=== PATIENT | female | born 2000 | race Caucasian/White ===

== ENCOUNTER 2022-07-06 12:32 | Emergency (ER) | payer OTHER, SELFPAY ==
[2022-07-06 12:50] VITALS: PULSE 95; RESP 18; O2SAT 97; BMI 23.5
--- NOTE | 2022-07-06 14:16 | EXP.UTC ---
Discharge Plan Disposition Patient Disposition: Home, Self-Care Condition: Good Prescriptions Prescriptions: New azithromycin [Zithromax] 250 mg tablet 250 mg PO UD DOSE PK Qty: 6 0RF Rx Instructions: Take two (2) tablets today, then one (1) tablet days #2 thru #5 Referrals Follow up/Referrals: Provider,Referral, MD [Primary Care Provider] - See instructions Activity Restrictions/Add. Instructions Additional Instructions/Restrictions: Drink plenty of fluids. Take tylenol or ibuprofen for pain or fever. Take the medications as directed. Follow up with your regular doctor. GO TO THE ER FOR ANY WORSENING SYMPTOMS Stop the amoxicillin that you are currently taking and start the azithromycin. Azithromycin is considered safe for breast feeding. Clinical Impressions Clinical Impression: Sinusitis Instructions Patient Instructions: Sinusitis, DI for Sinusitis Discharge ED Provider: Jose Martin Navarro [facility] General Stated complaint: Sinus pressure, no improvement w/ antibiotic Mode of Arrival: Ambulatory Limitations: No Limitations Time Seen by Provider: 07/06/22 14:16 Description of Symptoms (Recalled from Triage Doc. by RN): c/o sinus pressure and HOUSE History of Present Illness Provider Complaint: She states that for the past 2 days she has had sore throat, chills, body aches and low grade fever. Related Data Previous Rx's Medication Instructions Recorded azithromycin 250 mg tablet 250 mg PO UD DOSE PK #6 tabs 07/06/22 (Zithromax) Allergies Allergy/AdvReac Type Severity Reaction Status Date / Time No Known Allergies Allergy Verified 07/06/22 14:44 [facility] Social History Smoking Status: Never smoker alcohol intake: never current occupational status: employed Travel in the last 8 weeks: None ROS Obtained: Yes All systems reviewed & no additional complaints except as documented Constitutional Constitutional: Reports chills and Reports fever(s) Eyes Eyes: Denies eye discharge ENT Ears, Nose, Mouth, and Throat: Reports as per HPI Cardiovascular Cardiovascular: Denies chest pain Respiratory Respiratory: Denies chest congestion and Reports cough Gastrointestinal Gastrointestingal: Reports nausea; Denies abdominal pain, constipation, cramping, diarrhea or vomiting Musculoskeletal Musculoskeletal: Denies arthralgias Integumentary/Breasts Skin/Breast: Denies rash Neurologic Neurologic: Denies paresthesias Physical Exam General General appearance: alert and in no apparent distress Head Head exam: atraumatic, normocephalic and normal inspection Eye Eye exam: Present normal appearance, PERRL and EOMI ENT ENT exam: Present normal exam, normal oropharynx, mucous membranes moist, TM's normal bilaterally and normal external ear exam Neck Neck exam: Present normal inspection, full ROM and trachea midline; Absent meningismus or lymphadenopathy Chest Chest inspection: Present normal inspection and symmetric chest wall rise; Absent tenderness Respiratory Respiratory exam: Present normal lung sounds bilaterally; Absent respiratory distress Cardiovascular Cardiovascular exam: Present regular rate and normal rhythm; Absent JVD Abdominal Exam Abdominal exam: Present soft and normal bowel sounds; Absent distention, tenderness or guarding Extremities Exam Extremities exam: Present normal inspection, full ROM and normal capillary refill; Absent calf tenderness Back Exam Back exam: Present normal inspection; Absent tenderness Neurological Exam Neurological exam: Present alert and oriented X3 Psychiatric Psychiatric exam: Present normal affect and normal mood Skin Skin exam: Present warm, dry, intact and normal color Lymphatic Lymphatic Findings: no adenopathy Medical Decision Making Medical Records Medical records reviewed: No I reviewed the patient's medical records. Ubaldo Inquiry Pt receiving controlled substance:
[2022-07-06 14:30] LABS: UTC Influenza A Antigen Negative (Negative); UTC Influenza B Antigen Negative (Negative); UTC Strep Screen (Rapid) Negative (Negative)
[2022-07-06 14:42] VITALS: BP 135/78; PULSE 87; RESP 18; TEMP 37.3; O2SAT 99; BMI 23.5
[2022-07-06 15:12] VITALS: BP 135/78; PULSE 87; RESP 18; TEMP 37.3
== END 2022-07-06 15:12 | disposition home or self-care (01) ==
PROVIDERS: Emergency Provider Nurse Practitioner Family
DX: J02.9 Acute pharyngitis, unspecified (principal); R50.9 Fever, unspecified; R11.0 Nausea; R05.9 Cough, unspecified; R51.9 Headache, unspecified; M79.10 Myalgia, unspecified site
CPT/HCPCS: 87804; 87880; 99213; G0463

== ENCOUNTER 2022-07-18 10:09 | Emergency (ER) | payer OTHER, SELFPAY ==
[2022-07-18 11:20] VITALS: BP 112/63; PULSE 62; RESP 19; TEMP 36.8; O2SAT 98; BMI 23.5
[2022-07-18 11:38] LABS: UTC Strep Screen (Rapid) Negative (Negative)
--- NOTE | 2022-07-18 11:41 | EXP.UTC ---
Discharge Plan Disposition Patient Disposition: Home, Self-Care Condition: Good Prescriptions Prescriptions: No Action azithromycin [Zithromax] 250 mg tablet 250 mg PO UD DOSE PK Qty: 6 0RF Rx Instructions: Take two (2) tablets today, then one (1) tablet days #2 thru #5 Referrals Follow up/Referrals: Provider,Referral, MD [Primary Care Provider] - See instructions Activity Restrictions/Add. Instructions Additional Instructions/Restrictions: covid swab was sent to lab, call tomorrow for results. self isolate until test results are known to be negative No sign of a bacterial infection. Likely viral. Viruses can take 7-14 days to run their course. Nasal saline and bulb syringe or nose Hattie to remove nasal drainage to help with nasal congestion. Hard to eat, drink, sleep with nasal congestion so important to keep this cleaned out. Monitor temp. Tylenol or Motrin as needed for pain or fever Encourage fluids, water, Gatorade, Powerade, Pedialyte if infant/toddler/child Warm salt water gargles Warm fluids Sore throat lozenges Sleep elevated Humidifier/vaporizer Follow-up immediately for new or worsening symptoms or no noticeable improvement over the next 48-72 hours. Clinical Impressions Clinical Impression: Upper respiratory infection, viral Instructions Patient Instructions: DI for Viral Upper Respiratory Infection -- Adult [facility]charge ED [facility] [facility] [place] General Stated complaint: sore throat, ear pain Time Seen by Provider: 07/18/22 11:41 HEENT Symptoms (Recalled from RN notes): Yes Resp Symptoms (Recalled from RN notes): No History of Present Illness Provider Complaint: 22 yr old female presents for sore throat and ear pain for 2 days Related Data Previous Rx's Medication Instructions Recorded azithromycin 250 mg tablet 250 mg PO UD DOSE PK #6 tabs 07/06/22 (Zithromax) Allergies Allergy/AdvReac Type Severity Reaction Status Date / Time No Known Allergies Allergy Verified 07/06/22 14:44 [facility] Disclaimer: The information contained in this section may have been updated after the patient was seen, as this information can be updated by other users. Social History , [employer]) Smoking Status: Never smoker alcohol intake: never current occupational status: employed Travel in the last 8 weeks: None ROS Obtained: Yes All systems reviewed & no additional complaints except as documented Constitutional Constitutional: Reports system reviewed and no additional complaints, except as documented and Reports as per HPI Eyes Eyes: Reports system reviewed and no additional complaints, except as documented and Reports as per HPI ENT Ears, Nose, Mouth, and Throat: Reports system reviewed and no additional complaints, except as documented, Reports as per HPI, Reports otalgia and Reports sore throat Cardiovascular Cardiovascular: Reports system reviewed and no additional complaints, except as documented Respiratory Respiratory: Reports system reviewed and no additional complaints, except as documented Gastrointestinal Gastrointestingal: Reports system reviewed and no additional complaints, except as documented Musculoskeletal Musculoskeletal: Reports system reviewed and no additional complaints, except as documented Integumentary/Breasts Skin/Breast: Reports system reviewed and no additional complaints, except as documented Neurologic Neurologic: Reports system reviewed and no additional complaints, except as documented Endocrine Endocrine: Reports system reviewed and no additional complaints, except as documented Allergic/Immunologic Allergic/Immunologic: Reports system reviewed and no additional complaints, except as documented Physical Exam General General appearance: alert and in no apparent distress Head Head exam: atraumatic, normocephalic and normal inspection Eye Eye exam: Present normal appearance and PERR
[2022-07-18 11:46] VITALS: BP 112/63; PULSE 62; RESP 19; TEMP 36.8; O2SAT 98
== END 2022-07-18 11:47 | disposition home or self-care (01) ==
PROVIDERS: Emergency Provider Nurse Practitioner Family
DX: J06.9 Acute upper respiratory infection, unspecified (principal)
CPT/HCPCS: 87880; 99212; G0463

== ENCOUNTER 2022-07-20 08:27 | Emergency (ER) | payer OTHER, SELFPAY ==
[2022-07-20 09:38] VITALS: BP 110/68; PULSE 84; RESP 16; TEMP 36.7; O2SAT 99; BMI 23.5
--- NOTE | 2022-07-20 10:00 | EXP.UTC ---
Discharge Plan Disposition Patient Disposition: Home, Self-Care Condition: Good Prescriptions Prescriptions: New cephalexin [cephalexin] 500 mg tablet 500 mg PO BID 7 Days Qty: 14 0RF No Action azithromycin [Zithromax] 250 mg tablet 250 mg PO UD DOSE PK Qty: 6 0RF Rx Instructions: Take two (2) tablets today, then one (1) tablet days #2 thru #5 Referrals Follow up/Referrals: Provider,Referral, MD [Primary Care Provider] - See instructions Activity Restrictions/Add. Instructions Additional Instructions/Restrictions: Start antibiotic as soon as possible and be sure to take as ordered for full length of time even though he should start feeling better in 24-48 hours. Tylenol or Motrin as needed for pain or fever Encourage fluids, water, Gatorade, Powerade, Pedialyte if /toddler/child Warm compresses often helps when placed over ear Return immediately for new or worsening symptoms no noticeable improvement in 48-72 hours and in 10-14 days to ensure the ears are return to baseline. Follow-up with primary care Clinical Impressions Clinical Impression: Sinusitis, Otitis media Instructions Patient Instructions: DI for Sinusitis, Middle Ear Infection Discharge ED Provider: Cielo ([facility])[place]resa [facility] [place] HPI General Stated complaint: left ear pain/sore throat Mode of Arrival: Ambulatory Source of Information: Patient Limitations: No Limitations Time Seen by Provider: 07/20/22 10:03 Description of Symptoms (Recalled from Triage Doc. by RN): pt comes in with c/o left ear pain, ongoing since last night. HEENT Symptoms (Recalled from RN notes): Yes Resp Symptoms (Recalled from RN notes): Yes Skin Symptoms (Recalled from RN notes): No MS Symptoms (Recalled from RN notes): No Functional Status (Recalled from RN notes): n/a History of Present Illness Provider Complaint: 22 yr old female c/o left ear pain, ongoing since last night. pt states she also having green sputum, sinus pressure and pain for a few days Related Data Previous Rx's Medication Instructions Recorded azithromycin 250 mg tablet 250 mg PO UD DOSE PK #6 tabs 07/06/22 (Zithromax) cephalexin 500 mg tablet 500 mg PO BID 7 days #14 tabs 07/20/22 Allergies Allergy/AdvReac Type Severity Reaction Status Date / Time No Known Allergies Allergy Verified 07/06/22 14:44 Worker's Comp Is this a Worker's Comp case?: No [facility] Disclaimer: The information contained in this section may have been updated after the patient was seen, as this information can be updated by other users. Social History , [employer]) Smoking Status: Never smoker alcohol intake: never current occupational status: employed Travel in the last 8 weeks: None ROS Obtained: Yes All systems reviewed & no additional complaints except as documented Constitutional Constitutional: Reports system reviewed and no additional complaints, except as documented and Reports as per HPI Eyes Eyes: Reports system reviewed and no additional complaints, except as documented and Reports as per HPI ENT Ears, Nose, Mouth, and Throat: Reports system reviewed and no additional complaints, except as documented, Reports as per HPI, Reports otalgia, Reports nasal congestion, Reports nasal discharge, Reports sinus pain and Reports sinus pressure Cardiovascular Cardiovascular: Reports system reviewed and no additional complaints, except as documented Respiratory Respiratory: Reports system reviewed and no additional complaints, except as documented Gastrointestinal Gastrointestingal: Reports system reviewed and no additional complaints, except as documented Musculoskeletal Musculoskeletal: Reports system reviewed and no additional complaints, except as documented Integumentary/Breasts Skin/Breast: Reports system reviewed and no additional complaints, except as documented Endocrine Endocrine: Reports system reviewed and no additional complaints,
[2022-07-20 10:13] VITALS: BP 110/68; PULSE 84; RESP 16; TEMP 36.7
== END 2022-07-20 10:14 | disposition home or self-care (01) ==
PROVIDERS: Emergency Provider Nurse Practitioner Family
DX: J32.9 Chronic sinusitis, unspecified (principal); H66.93 Otitis media, unspecified, bilateral
CPT/HCPCS: 99212; G0463

== ENCOUNTER 2022-11-21 19:59 | Emergency (ER) | payer OTHER, SELFPAY ==
[2022-11-21 20:45] VITALS: BP 119/77; PULSE 79; RESP 17; TEMP 36.8; O2SAT 100; BMI 22.7
[2022-11-21 21:14] LABS: Microscopic, Urine URINE MICROSCOPIC (MICROSCOPIC)
[2022-11-21 21:17] LABS: Appearance,Urine CLEAR (Clear); Bilirubin,Urine Negative (Negative); Blood, Urine Negative (Negative); Color,Urine YELLOW (Yellow); Glucose,Urine (UA) Negative (Negative); Ketones,Urine Negative (Negative); Leukocyte Esterase,Urine Negative (Negative); Nitrate,Urine Negative (Negative); Protein,Urine Negative (Negative); Specific Gravity, Urine 1.015 (1.005-1.030); Urobilinogen,Urine 0.2 EU/dl (0.2)
[2022-11-21 21:21] LABS: Urine Pregnancy, HCG Qual. Negative (Negative)
--- NOTE | 2022-11-21 21:21 | CT_ITS ---
PROCEDURE INFORMATION: Exam: CT Abdomen And Pelvis With Contrast Exam date and time: 11/21/2022 9:46 PM Age: 22 years old Clinical indication: Abdominal pain; Additional info: Abd pain , midline TECHNIQUE: Imaging protocol: Computed tomography of the abdomen and pelvis with contrast. Total images: 264 Radiation optimization: All CT scans at this facility use at least one of these dose optimization techniques: automated exposure control; mA and/or kV adjustment per patient size (includes targeted exams where dose is matched to clinical indication); or iterative reconstruction. Contrast material: ISOVUE; Contrast volume: 75 ml; Contrast route: IV; REPORTING DATA: Count of CT and Cardiac NM exams in prior 12 months: This patient has received 0 known CTs and 0 known cardiac nuclear medicine studies in the 12 months prior to the current study. COMPARISON: No relevant prior studies available. FINDINGS: Lungs: Lung bases are clear. Heart: Normal heart size. Liver: Normal. No mass. Gallbladder and bile ducts: Normal. No calcified stones. No ductal dilation. Pancreas: Normal. No ductal dilation. Spleen: Normal. No splenomegaly. Adrenal glands: Normal. No mass. Kidneys and ureters: No nephrolithiasis, hydronephrosis, or renal mass. No perinephric fluid. Stomach and bowel: Unremarkable stomach and duodenum. No ileus or bowel obstruction. Small bowel is within normal limits. Mild colonic stool burden. Otherwise unremarkable colon and rectum. Appendix: Status post appendectomy. Intraperitoneal space: Unremarkable. No free air. No significant fluid collection. Vasculature: Abdominal aorta is normal in caliber. Major abdominal vessels enhance appropriately. Mild pelvic venous congestion. Lymph nodes: Unremarkable. No enlarged lymph nodes. Urinary bladder: Collapsed bladder. Reproductive: Unremarkable uterus and ovaries. No adnexal mass. Bones/joints: No acute osseous abnormality. No concerning bone lesions. Soft tissues: Very tiny fat containing periumbilical hernia. IMPRESSION: 1. No acute intra-abdominal or pelvic process. 2. Mild pelvic venous congestion. 3. Status post appendectomy.
--- NOTE | 2022-11-21 21:24 | HMH.EDGENADL ---
Discharge Plan Disposition Patient Disposition: Home, Self-Care Condition: Good Prescriptions Prescriptions: New famotidine 20 mg tablet 20 mg PO DAILY Qty: 20 0RF No Action multivitamin Tablet 1 tab PO DAILY amoxicillin-pot clavulanate 875-125 mg tablet 1 tab PO BID Referrals Follow up/Referrals: Provider,Referral, [Primary Care Provider] - See instructions Clinical Impressions Clinical Impression: Abdominal pain, Gastritis, Hypokalemia Instructions Patient Instructions: DI for Gastroesophageal Reflux Disease (GERD), DI for Acute Abdominal Pain, Hypokalemia Print Language Print Language: Serbian Discharge ED Provider: Quinton Norris General Adult HPI General Chief complaint: Abdominal Pain Stated complaint: Sharp pain in upper stomach and left shoulder Time Seen by Provider: 11/21/22 22:37 Mode of Arrival: Family Vehicle Source of Information: Patient Limitations: No Limitations Description of Symptoms (Recalled from ER Triage Doc. by RN): Pt c/o mid epigastric pain that radiates through mid back and into L shoulder. This began 15 min after eating ham, mashed potatos, and mixed veggies. States the pain is constant and dull but then has episodes of being sharp. Denies any fever or chills. Reports nausea without vomiting or diarrhea. She has had a previous appendectomy and 1x . Denies any urinary symptoms. History of Present Illness HPI narrative: Patient presents to the emergency department with sudden onset of abdominal pain just prior to arrival. The patient states that she was eating and approximately 15 minutes later began to have epigastric and right upper quadrant pain that radiated into her back. She denies any fever, chills, cough, congestion. She does describe nausea without vomiting. Denies any dysuria, hematuria, frequency, diarrhea or constipation. Denies any previous history of similar symptoms. States that she has had a and appendectomy in the past. Continues to complain of pain Related Data Home Medications Medication Instructions Recorded Confirmed multivitamin 1 tab PO DAILY Glaucoma 10/04/22 11/21/22 amoxicillin 875 mg-potassium 1 tab PO BID Infection 11/21/22 11/21/22 clavulanate 125 mg tablet Previous Rx's Medication Instructions Recorded famotidine 20 mg tablet 20 mg PO DAILY #20 tabs 11/21/22 Allergies Allergy/AdvReac Type Severity Reaction Status Date / Time No Known Allergies Allergy Verified 10/04/22 15:45 PFSH PFSH Disclaimer: The information contained in this section may have been updated after the patient was seen, as this information can be updated by other users. Medical History Otitis media Upper respiratory infection, viral Social History Smoking Status: Never smoker alcohol intake: never current occupational status: employed Travel in the last 8 weeks: None ROS Obtained: Yes All systems reviewed & no additional complaints except as documented Gastrointestinal Gastrointestingal: Reports abdominal pain, nausea and vomiting Physical Exam General General appearance: alert and other (Slightly uncomfortable appearing.) Head Head exam: atraumatic and normocephalic Eye Eye exam: Present normal appearance, PERRL and EOMI Respiratory Respiratory exam: Present normal lung sounds bilaterally Cardiovascular Cardiovascular exam: Present regular rate and normal rhythm Abdominal Exam Abdominal exam: Present other (Soft, nondistended, epigastric and right upper quadrant abdominal tenderness with guarding. No rebound. Normal bowel sounds.) Extremities Exam Extremities exam: Present normal inspection and full ROM Back Exam Back exam: Present other (Negative right flank tenderness with percussion) Neurological Exam Neurological exam: Present alert and oriented X3 Psychiatric Psychiatric exam:
[2022-11-21 21:30] VITALS: BP 117/68; PULSE 84; RESP 18; O2SAT 99
[2022-11-21 21:30] LABS: Basophils # 0.1 K/mm3 (0-0.2); Basophils % 0.8 % (0.1-2.0); Chloride 101 mmol/L (98-107); Eosinophils # 0.1 K/mm3 (0.0-0.4); Eosinophils % 1.2 % (0.1-12.0); Hematocrit 40.7 % (37.0-47.0); Hemoglobin 13.5 g/dL (12.2-16.2); Lymphocytes # 3.5 K/mm3 (0.7-4.5); Lymphocytes % 39.1 % (10-50); Mean Corpuscular HGB Conc 33.2 g/dL (31.8-35.4); Mean Corpuscular Hemoglobin 27.9 pg (27.0-31.2); Mean Platelet Volume 7.7 fl (7.4-10.4); Monocytes # 0.6 K/mm3 (0.1-1.0); Monocytes % 6.6 % (1.7-9.3); Neutrophils # 4.7 K/mm3 (1.8-7.8); Neutrophils % 52.3 % (37.0-80.0); Platelet Count 268 K/mm3 (142-424); Red Blood Count 4.84 M/mm3 (4.20-5.40); Red Cell Distribution Width 13.3 % (11.5-17.5); Sodium 140 mmol/L (136-145)
[2022-11-21 21:31] LABS: Potassium 3.2 mmoL/L (3.5-5.1)
[2022-11-21 21:31] LABS: Squamous Epithelial Cell,Urine Occasional #/hpf (0-5)
[2022-11-21 21:33] LABS: Alanine Aminotransferase 21 U/L (12-78); Albumin Level 4.8 g/dl (3.5-5.0); Albumin/Globulin Ratio 1.5 (1.1-1.8); Alkaline Phosphatase 85 U/L (38-126); Anion Gap 15.2 mEq/L (5-15); Aspartate Amino Transferase 28 U/L (14-36); Bilirubin,Total 0.4 mg/dl (0.2-1.3); Blood Urea Nitrogen 12 mg/dl (7-17); Calcium 9.2 mg/dl (8.4-10.2); Carbon Dioxide 27 mmol/L (22.0-30.0); Creatinine Clearance Estimated 132 mL/min (50-200); Estimated Glomerular Filt Rate 106 ml/min (>60); GFR (African American) 128 ML/MIN (>60); Globulin 3.1 g/dL (1.3-3.2); Glucose 95 mg/dl (74-100); Lipase 89 U/L (23-300); Total Protein,Serum 7.9 g/dl (6.3-8.2)
--- NOTE | 2022-11-21 21:42 | PC.NURSE ---
PT gone to RAD via wheelchair
--- NOTE | 2022-11-21 21:52 | PC.NURSE ---
Pt back from RAD
[2022-11-21 22:00] VITALS: BP 123/64; PULSE 76; O2SAT 95
[2022-11-21 22:30] VITALS: BP 103/62; PULSE 74; O2SAT 100
[2022-11-21 22:40] VITALS: BP 103/62; PULSE 74; RESP 18; TEMP 36.6; O2SAT 98
== END 2022-11-21 22:51 | disposition home or self-care (01) ==
PROVIDERS: Emergency Provider Emergency Medicine
DX: K29.70 Gastritis, unspecified, without bleeding (principal); E87.6 Hypokalemia
CPT/HCPCS: 74177; 80053; 81001; 81025; 83690; 85025; 96360; 96374; 99284; 99285; J2405; Q9967

== ENCOUNTER 2023-01-08 10:55 | Emergency (ER) | payer OTHER, SELFPAY ==
[2023-01-08 10:56] VITALS: BP 120/71; PULSE 116; RESP 18; TEMP 37.1; O2SAT 99; BMI 22.7
--- NOTE | 2023-01-08 11:33 | EXP.UTC ---
Discharge Plan Disposition Patient Disposition: Home, Self-Care Condition: Good Prescriptions Prescriptions: New ciprofloxacin HCl [Cipro] 500 mg tablet 500 mg PO BID 7 Days Qty: 14 0RF phenazopyridine [Pyridium] 200 mg tablet 200 mg PO Q8H 2 Days Qty: 6 0RF No Action multivitamin Tablet 1 tab PO DAILY amoxicillin-pot clavulanate 875-125 mg tablet 1 tab PO BID famotidine 20 mg tablet 20 mg PO DAILY Qty: 20 0RF Referrals Follow up/Referrals: Provider,Referral, MD [Primary Care Provider] - See instructions Activity Restrictions/Add. Instructions Additional Instructions/Restrictions: Drink plenty of fluids. Take tylenol or ibuprofen for pain or fever. Take the medications as directed. Follow up with your regular doctor. GO TO THE ER FOR ANY WORSENING SYMPTOMS The pyridium will make your urine turn orange, this is an expected side effect. It will stain your clothes if it comes into contact with them. We will culture the urine. That will tell what bacteria is causing your infection and which antibiotics will treat it best. Sometimes the first antibiotic we prescribe turns out to not work against different bacteria. So, make sure you follow up within 3 days if you are not getting better. Clinical Impressions Clinical Impression: UTI (urinary tract infection) Instructions Patient Instructions: Urinary Tract Infection, Urine Culture, DI for Urinary Tract Infection (UTI), Phenazopyridine Discharge ED Provider: Jose Martin Navarro [facility] [place] HPI General Stated complaint: Congestion,runny nose,fever, possible UTI Time Seen by Provider: 01/08/23 11:33 History of Present Illness Provider Complaint: she c/o dysuria and low back pain for the past 2 days. Related Data Home Medications Medication Instructions Recorded Confirmed multivitamin 1 tab PO DAILY Glaucoma 10/04/22 11/21/22 amoxicillin 875 mg-potassium 1 tab PO BID Infection 11/21/22 11/21/22 clavulanate 125 mg tablet Previous Rx's Medication Instructions Recorded famotidine 20 mg tablet 20 mg PO DAILY #20 tabs 11/21/22 ciprofloxacin HCl 500 mg tablet 500 mg PO BID 7 days #14 tabs 01/08/23 (Cipro) phenazopyridine 200 mg tablet 200 mg PO Q8H 2 days #6 tabs 01/08/23 (Pyridium) Allergies Allergy/AdvReac Type Severity Reaction Status Date / Time No Known Allergies Allergy Verified 10/04/22 15:45 [facility] Disclaimer: The information contained in this section may have been updated after the patient was seen, as this information can be updated by other users. Medical History Otitis media Upper respiratory infection, viral Social History Smoking Status: Never smoker alcohol intake: never current occupational status: employed Travel in the last 8 weeks: None ROS Obtained: Yes All systems reviewed & no additional complaints except as documented Constitutional Constitutional: Reports system reviewed and no additional complaints, except as documented, Denies chills and Denies fever(s) Eyes Eyes: Denies eye discharge ENT Ears, Nose, Mouth, and Throat: Denies dysphagia, Denies sore throat and Denies throat swelling Cardiovascular Cardiovascular: Denies chest pain and Denies dyspnea Respiratory Respiratory: Denies chest congestion, Denies cough and Denies dyspnea Gastrointestinal Gastrointestingal: Denies abdominal pain, constipation, diarrhea, dysphagia, nausea or vomiting Genitourinary Female Genitourinary: Reports as per HPI, Reports dysuria, Reports sexual dysfunction, Reports urinary frequency, Denies urinary incontinence and Reports urinary hesitancy Musculoskeletal Musculoskeletal: Denies arthralgias and Reports back pain Integumentary/Breasts Skin/Breast: Denies rash Neurologic Neurologic: Denies paresthesias Allergic/Immunologic Allergic/Immunologic: Denies throat swelling P
[2023-01-08 11:50] LABS: Apearance,Urine Clear (Clear); Bilirubin,Urine Negative (Negative); Blood, Urine Negative (Negative); Color,Urine Dark Yellow (Yellow); Glucose,Urine (UA) Negative (Negative); Ketones,Urine Negative (Negative); Protein,Urine Negative (Negative); Specific Gravity, Urine 1.025 (1.005-1.030); UTC Leukocyte Esterase,Urine Negative (Negative); UTC Nitrate,Urine Negative (Negative); Urobilinogen,Urine 0.2 EU/dl (0.2)
[2023-01-08 12:43] VITALS: BP 120/71; PULSE 116; RESP 18; TEMP 37.1; O2SAT 99
== END 2023-01-08 12:44 | disposition home or self-care (01) ==
PROVIDERS: Emergency Provider Nurse Practitioner Family
DX: N39.0 Urinary tract infection, site not specified (principal)
CPT/HCPCS: 81003; 87086; 99212; 99214; G0463

== ENCOUNTER 2023-01-11 09:36 | Emergency (ER) | payer OTHER, SELFPAY ==
[2023-01-11 09:37] VITALS: BP 133/83; PULSE 77; RESP 17; TEMP 36.6; O2SAT 100; BMI 22.7
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
[2023-01-11 10:10] VITALS: PULSE 86; O2SAT 99
[2023-01-11 10:15] VITALS: PULSE 80; O2SAT 100
--- NOTE | 2023-01-11 10:38 | PC.NURSE ---
pt ambulated to the bathroom and reported having a large bowel movement and relief of pain
[2023-01-11 10:52] LABS: Microscopic, Urine URINE MICROSCOPIC (MICROSCOPIC)
--- NOTE | 2023-01-11 11:04 | PC.NURSE ---
called lab for update on UA- states 10 min eta
[2023-01-11 11:07] LABS: Appearance,Urine SL CLOUDY (Clear); Bilirubin,Urine Negative (Negative); Blood, Urine Negative (Negative); Color,Urine YELLOW (Yellow); Glucose,Urine (UA) Negative (Negative); Ketones,Urine Negative (Negative); Leukocyte Esterase,Urine Negative (Negative); Nitrate,Urine Negative (Negative); Protein,Urine Negative (Negative); Specific Gravity, Urine 1.025 (1.005-1.030); Urobilinogen,Urine 0.2 EU/dl (0.2)
[2023-01-11 11:09] LABS: Urine Pregnancy, HCG Qual. Negative (Negative)
[2023-01-11 11:18] LABS: Bacteria,Urine 2+ /lpf; WBC,Urine Occasional #/hpf (0-3)
[2023-01-11 11:38] VITALS: BP 134/86; PULSE 76; RESP 16; TEMP 36.7; O2SAT 98
== END 2023-01-11 11:40 | disposition home or self-care (01) ==
PROVIDERS: Emergency Provider Student in an Organized Health Care Education/Training Program
DX: R10.2 Pelvic and perineal pain (principal); R07.81 Pleurodynia; K59.00 Constipation, unspecified
CPT/HCPCS: 81001; 81025; 87086; 99283

== ENCOUNTER 2023-01-26 17:30 | Emergency (ER) | payer OTHER, SELFPAY ==
[2023-01-26 17:32] VITALS: BP 141/77; PULSE 99; RESP 16; TEMP 36.9; O2SAT 98; BMI 22.7
--- NOTE | 2023-01-26 17:35 | PC.NURSE ---
Ccollar applied to pt at this time due o complaints of bilateral hand numbness
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
[2023-01-26 18:12] LABS: Basophils % 0.5 % (0.1-2.0); Eosinophils # 0.1 K/mm3 (0.0-0.4); Eosinophils % 0.6 % (0.1-12.0); Hematocrit 39.8 % (37.0-47.0); Hemoglobin 13.1 g/dL (12.2-16.2); Lymphocytes # 1.9 K/mm3 (0.7-4.5); Lymphocytes % 21.7 % (10-50); Mean Corpuscular HGB Conc 32.9 g/dL (31.8-35.4); Mean Corpuscular Hemoglobin 27.3 pg (27.0-31.2); Mean Corpuscular Volume 82.9 fl (81-99); Mean Platelet Volume 7.7 fl (7.4-10.4); Monocytes # 0.5 K/mm3 (0.1-1.0); Monocytes % 5.2 % (1.7-9.3); Neutrophils # 6.1 K/mm3 (1.8-7.8); Neutrophils % 71.9 % (37.0-80.0); Platelet Count 323 K/mm3 (142-424); Red Cell Distribution Width 13.3 % (11.5-17.5); White Blood Count 8.6 K/mm3 (4.8-10.8)
[2023-01-26 18:18] LABS: Chloride 102 mmol/L (98-107); Potassium 3.8 mmoL/L (3.5-5.1); Sodium 140 mmol/L (136-145)
[2023-01-26 18:21] LABS: Alanine Aminotransferase 34 U/L (12-78); Albumin Level 4.7 g/dl (3.5-5.0); Albumin/Globulin Ratio 1.6 (1.1-1.8); Alkaline Phosphatase 85 U/L (38-126); Anion Gap 15.8 mEq/L (5-15); Aspartate Amino Transferase 40 U/L (14-36); Bilirubin,Total 0.2 mg/dl (0.2-1.3); Blood Urea Nitrogen 10 mg/dl (7-17); Calcium 8.9 mg/dl (8.4-10.2); Carbon Dioxide 26 mmol/L (22.0-30.0); Creatinine Clearance Estimated 132 mL/min (50-200); Estimated Glomerular Filt Rate 106 ml/min (>60); GFR (African American) 128 ML/MIN (>60); Glucose 103 mg/dl (74-100); HCG Qualitative, Serum Negative (Negative); Lipase 80 U/L (23-300); Total Protein,Serum 7.7 g/dl (6.3-8.2)
[2023-01-26 19:43] VITALS: BP 121/71; PULSE 80; RESP 16; TEMP 36.7; O2SAT 98
== END 2023-01-26 19:45 | disposition home or self-care (01) ==
PROVIDERS: Emergency Provider Emergency Medicine
DX: S39.012A Strain of muscle, fascia and tendon of lower back, initial encounter (principal); R07.9 Chest pain, unspecified; R10.9 Unspecified abdominal pain; M54.2 Cervicalgia; R20.2 Paresthesia of skin; V43.52XA Car driver injured in collision with other type car in traffic accident, initial encounter
CPT/HCPCS: 70450; 71260; 72125; 74177; 80053; 83690; 84703; 85025; 99284; 99285; Q9967

== ENCOUNTER → 2023-06-16 23:15 | Outpatient (CLI) | payer OTHER, SELFPAY | PROVIDERS: PCP Student in an Organized Health Care Education/Training Program; Visit Provider Student in an Organized Health Care Education/Training Program | DX: R35.0 Frequency of micturition (principal) | CPT/HCPCS: 87086 ==

== ENCOUNTER 2023-06-27 15:02 | Emergency (ER) | payer OTHER, SELFPAY ==
[2023-06-27 15:03] VITALS: BP 124/82; PULSE 88; RESP 16; TEMP 36.8; O2SAT 100; BMI 22.7
--- NOTE | 2023-06-27 16:10 | US_ITS ---
PROCEDURE INFORMATION: Exam: US Pelvis, Transvaginal Exam date and time: 06/27/2023 4:24 PM Age: 23 years old Clinical indication: Pelvic pain; Prior surgery; Surgery date: 6+ months; Surgery type: Csection; Additional info: Acute llq pain LABS AND CLINICAL REPORTS: Last menstrual period start date: 05/31/2023 TECHNIQUE: Imaging protocol: Real-time transvaginal pelvic ultrasound with image documentation. Transvaginal imaging was used for better evaluation of the endometrium, adnexa, and/or cervix. COMPARISON: CT ABDOMEN PELVIS W CON 01/26/2023 6:49 PM FINDINGS: Uterus: Uterus measures 8.4 cm x 5.57 cm x 4.27 cm. Right ovary/adnexa: Right ovary measures 3.11 cm x 2.43 cm x 2.61 cm. Right ovarian volume is 10.33 mL. Left ovary/adnexa: Left ovary measures 2.29 cm x 1.62 cm x 2.32 cm. Left ovarian volume is 4.51 mL. Intraperitoneal space: No free fluid. IMPRESSION: Normal pelvic sonogram.
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
--- NOTE | 2023-06-27 16:25 | PC.NURSE ---
Patient to US
[2023-06-27 17:10] LABS: Basophils # 0.1 K/mm3 (0-0.2); Basophils % 0.6 % (0.1-2.0); Eosinophils # 0.1 K/mm3 (0.0-0.4); Eosinophils % 0.6 % (0.1-12.0); Hematocrit 39.1 % (37.0-47.0); Hemoglobin 14.2 g/dL (12.2-16.2); Lymphocytes # 2.6 K/mm3 (0.7-4.5); Lymphocytes % 28.9 % (10-50); Mean Corpuscular HGB Conc 36.3 g/dL (31.8-35.4); Mean Corpuscular Hemoglobin 30.8 pg (27.0-31.2); Mean Corpuscular Volume 84.9 fl (81-99); Monocytes # 0.5 K/mm3 (0.1-1.0); Monocytes % 5.7 % (1.7-9.3); Neutrophils # 5.7 K/mm3 (1.8-7.8); Neutrophils % 64.1 % (37.0-80.0); Platelet Count 225 K/mm3 (142-424); Red Cell Distribution Width 13.5 % (11.5-17.5); White Blood Count 8.8 K/mm3 (4.8-10.8)
[2023-06-27 17:18] LABS: Alanine Aminotransferase 54 U/L (12-78); Albumin Level 4.9 g/dl (3.5-5.0); Albumin/Globulin Ratio 1.6 (1.1-1.8); Alkaline Phosphatase 58 U/L (38-126); Anion Gap 11.2 mEq/L (5-15); Aspartate Amino Transferase 38 U/L (14-36); Bilirubin,Total 0.5 mg/dl (0.2-1.3); Blood Urea Nitrogen 11 mg/dl (7-17); Calcium 9.2 mg/dl (8.4-10.2); Carbon Dioxide 24 mmol/L (22.0-30.0); Chloride 106 mmol/L (98-107); Creatinine Clearance Estimated 153 mL/min (50-200); Estimated Glomerular Filt Rate 125 ml/min (>60); GFR (African American) 151 ML/MIN (>60); Globulin 3.1 g/dL (1.3-3.2); Glucose 105 mg/dl (74-100); Potassium 3.2 mmoL/L (3.5-5.1); Sodium 138 mmol/L (136-145)
[2023-06-27 17:35] LABS: Microscopic, Urine URINE MICROSCOPIC (MICROSCOPIC)
[2023-06-27 17:35] LABS: HCG,Quantitative < 2 mIU/ml (0-5.42)
[2023-06-27 17:38] LABS: Appearance,Urine SL CLOUDY (Clear); Bilirubin,Urine Negative (Negative); Blood, Urine Negative (Negative); Color,Urine ORANGE (Yellow); Glucose,Urine (UA) 2+ (Negative); Ketones,Urine 1+ (Negative); Leukocyte Esterase,Urine 1+ (Negative); Nitrate,Urine POSITIVE (Negative); PH,Urine 6.5 (5.0-8.5); Protein,Urine 3+ (Negative); Urobilinogen,Urine >=8.0 EU/dl (0.2)
[2023-06-27 17:54] LABS: Bacteria,Urine 3+ /lpf
[2023-06-27 18:13] VITALS: BP 106/69; PULSE 75; RESP 16; TEMP 36.8; O2SAT 100
== END 2023-06-27 18:15 | disposition home or self-care (01) ==
PROVIDERS: Emergency Provider Emergency Medicine; PCP Student in an Organized Health Care Education/Training Program
DX: R10.32 Left lower quadrant pain (principal); N39.0 Urinary tract infection, site not specified; R31.9 Hematuria, unspecified; B96.89 Other specified bacterial agents as the cause of diseases classified elsewhere; E87.6 Hypokalemia
CPT/HCPCS: 76830; 80053; 81001; 84702; 85025; 87086; 99284

== ENCOUNTER 2023-09-21 21:11 | Outpatient (CLI) | payer OTHER, SELFPAY ==
[2023-09-21 18:54] LABS: Adenovirus,PCR Not Detected (NotDetected); Coronavirus 19, PCR Not Detected (NotDetected); Coronavirus NL63 Not Detected (NotDetected); Coronavirus OC43 Not Detected (NotDetected); Coronovirus HKU1,PCR Not Detected (NotDetected); Human Metapneumovirus Not Detected (NotDetected); Influenza A, PCR Not Detected (NotDetected); Influenza AH1, 2009 Not Detected (NotDetected); Influenza AH1, PCR Not Detected (NotDetected); Influenza AH3,PCR Not Detected (NotDetected); Influenza B, PCR Not Detected (NotDetected); Parainfluenza 1, PCR Not Detected (NotDetected); Parainfluenza 2, PCR Not Detected (NotDetected); Parainfluenza 3, PCR Not Detected (NotDetected); Parainfluenza 4, PCR Not Detected (NotDetected); Respiratory Syncytial Virus Not Detected (NotDetected); Rhinovirus/Enterovirus Not Detected (NotDetected)
[2023-09-21 21:20] LABS: Coronavirus 229E Detected (NotDetected)
== END 2023-09-21 23:59 ==
LOC: LAB.DROPOF 21:12
PROVIDERS: PCP Nurse Practitioner Family; Visit Provider Nurse Practitioner Family
DX: Z20.822 Contact with and (suspected) exposure to COVID-19 (principal); J02.9 Acute pharyngitis, unspecified; B97.29 Other coronavirus as the cause of diseases classified elsewhere
CPT/HCPCS: 87070; 87632; 87635

== ENCOUNTER 2023-11-26 10:02 | Emergency (ER) | payer OTHER, SELFPAY ==
[2023-11-26 10:15] VITALS: BP 120/78; PULSE 71; RESP 18; TEMP 36.9; O2SAT 100; BMI 22.7
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
[2023-11-26 11:19] VITALS: BP 120/78; PULSE 71; RESP 18; TEMP 36.9; O2SAT 100
== END 2023-11-26 11:19 | disposition home or self-care (01) ==
PROVIDERS: Emergency Provider Nurse Practitioner Family; PCP Student in an Organized Health Care Education/Training Program
DX: H66.93 Otitis media, unspecified, bilateral (principal); J01.90 Acute sinusitis, unspecified; R50.9 Fever, unspecified; R09.81 Nasal congestion
CPT/HCPCS: 99212; 99214; G0463

== ENCOUNTER 2023-12-03 11:41 | Emergency (ER) | payer OTHER, SELFPAY ==
[2023-12-03 11:42] VITALS: BP 104/65; PULSE 73; RESP 18; TEMP 37; O2SAT 100; BMI 22.7
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
[2023-12-03 13:44] VITALS: BP 104/65; PULSE 73; RESP 18; TEMP 37; O2SAT 100
== END 2023-12-03 13:35 | disposition home or self-care (01) ==
PROVIDERS: Emergency Provider Nurse Practitioner Family; PCP Student in an Organized Health Care Education/Training Program
DX: H65.193 Other acute nonsuppurative otitis media, bilateral (principal)
CPT/HCPCS: 99212; 99214; G0463

== ENCOUNTER 2024-01-25 12:22 | Emergency (ER) | payer OTHER, SELFPAY ==
[2024-01-25 12:40] VITALS: BP 103/61; PULSE 91; RESP 20; TEMP 37.1; O2SAT 100; BMI 21.4
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
[2024-01-25 13:00] LABS: UTC Strep Screen (Rapid) Negative (Negative)
[2024-01-25 13:18] VITALS: BP 103/61; PULSE 91; RESP 20; TEMP 37.1; O2SAT 100
== END 2024-01-25 13:31 | disposition home or self-care (01) ==
PROVIDERS: Emergency Provider Nurse Practitioner Family; PCP Student in an Organized Health Care Education/Training Program
DX: J01.90 Acute sinusitis, unspecified (principal); R07.0 Pain in throat; R09.81 Nasal congestion
CPT/HCPCS: 87880; 99212; 99214; G0463

== ENCOUNTER 2024-04-19 14:13 | Emergency (ER) | payer OTHER, SELFPAY ==
[2024-04-19 14:49] VITALS: BP 122/65; PULSE 68; RESP 18; TEMP 36.6; O2SAT 100; BMI 20.5
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
[2024-04-19 15:31] VITALS: BP 122/65; PULSE 68; RESP 18; TEMP 36.6; O2SAT 100
== END 2024-04-19 15:32 | disposition home or self-care (01) ==
PROVIDERS: Emergency Provider Nurse Practitioner Family; PCP Student in an Organized Health Care Education/Training Program
DX: M79.671 Pain in right foot (principal); L84 Corns and callosities
CPT/HCPCS: 99212; 99214; G0463

== ENCOUNTER 2024-06-12 14:14 | Emergency (ER) | payer OTHER, SELFPAY ==
[2024-06-12 14:15] VITALS: BP 126/71; PULSE 87; RESP 13; TEMP 36.7; O2SAT 100; BMI 21.1
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
[2024-06-12 15:32] LABS: Coronavirus 19, PCR Not Detected (NotDetected); Influenza A, PCR Not Detected (NotDetected); Influenza B, PCR Not Detected (NotDetected)
[2024-06-12 15:32] LABS: Microscopic, Urine URINE MICROSCOPIC (MICROSCOPIC)
[2024-06-12] MEDS: IBUPROFEN 400 MG TABLET 800 MG PO (15:32)
[2024-06-12] MEDS: ACETAMINOPHEN 500MG TAB 1000 MG PO (15:32)
--- NOTE | 2024-06-12 15:33 | PC.NURSE ---
Spoke with Ulices in lab regarding lab add-ons
[2024-06-12 15:36] LABS: Appearance,Urine CLEAR (Clear); Bilirubin,Urine Negative (Negative); Blood, Urine Negative (Negative); Color,Urine YELLOW (Yellow); Glucose,Urine (UA) Negative (Negative); Ketones,Urine TRACE (Negative); Leukocyte Esterase,Urine Negative (Negative); Nitrate,Urine Negative (Negative); Protein,Urine Negative (Negative); Urobilinogen,Urine 0.2 EU/dl (0.2)
[2024-06-12 15:36] LABS: Basophils % 0.8 % (0.1-2.0); Eosinophils % 0.6 % (0.1-12.0); Hematocrit 42.8 % (37.0-47.0); Hemoglobin 14.7 g/dL (12.2-16.2); Lymphocytes # 0.7 K/mm3 (0.7-4.5); Mean Corpuscular HGB Conc 34.3 g/dL (31.8-35.4); Mean Corpuscular Hemoglobin 29.4 pg (27.0-31.2); Mean Corpuscular Volume 85.7 fl (81-99); Mean Platelet Volume 7.3 fl (7.4-10.4); Monocytes # 0.3 K/mm3 (0.1-1.0); Neutrophils # 2.7 K/mm3 (1.8-7.8); Neutrophils % 71.5 % (37.0-80.0); Platelet Count 180 K/mm3 (142-424); Red Cell Distribution Width 13.1 % (11.5-17.5); White Blood Count 3.7 K/mm3 (4.8-10.8)
[2024-06-12 15:43] LABS: Chloride 104 mmol/L (98-107); Potassium 3.9 mmoL/L (3.5-5.1); Sodium 141 mmol/L (136-145)
[2024-06-12 15:46] LABS: Anion Gap 12.9 mEq/L (5-15); Blood Urea Nitrogen 10 mg/dl (7-17); Carbon Dioxide 28 mmol/L (22.0-30.0); Creatine Kinase 72 U/L (30-135); Creatinine Clearance Estimated 106 mL/min (50-200); Estimated Glomerular Filt Rate 89 ml/min (>60); GFR (African American) 108 ML/MIN (>60); Glucose 87 mg/dl (74-100)
[2024-06-12 15:47] LABS: Calcium 9.5 mg/dl (8.4-10.2)
[2024-06-12 16:02] LABS: Squamous Epithelial Cell,Urine 20-50 #/hpf (0-5)
[2024-06-12 16:03] LABS: Bacteria,Urine 4+ /lpf; Mucus,Urine 4+ /lpf
[2024-06-12 16:11] LABS: HCG,Quantitative < 2 mIU/ml (0-5.42)
[2024-06-12 16:37] VITALS: BP 123/76; PULSE 90; RESP 13; TEMP 36.7
[2024-06-12 17:36] LABS: HIV (1&2) Antibody Rapid NONREACTIVE (NONREACTIVE)
[2024-06-13 09:39] LABS: HCV Ab Non Reactive (Non Reactive)
== END 2024-06-12 16:38 | disposition home or self-care (01) ==
PROVIDERS: Emergency Medicine; Physician Assistant; Emergency Provider Emergency Medicine
DX: B34.9 Viral infection, unspecified (principal); M79.10 Myalgia, unspecified site; R51.9 Headache, unspecified; R50.9 Fever, unspecified
CPT/HCPCS: 80048; 81001; 82550; 84702; 85025; 86803; 87086; 87389; 87636; 99283

== ENCOUNTER 2024-07-12 14:15 | Outpatient (CLI) | payer OTHER, SELFPAY ==
[2024-07-12 15:49] LABS: HCG,Quantitative 2753 mIU/ml (0-5.42)
[2024-07-13 03:38] LABS: Progesterone 18.4 ng/mL (.)
== END 2024-07-12 23:59 | disposition home or self-care (01) ==
LOC: LAB 14:16
PROVIDERS: Visit Provider Obstetrics & Gynecology
DX: Z34.90 Encounter for supervision of normal pregnancy, unspecified, unspecified trimester (principal)
CPT/HCPCS: 36415; 84144; 84702

== ENCOUNTER 2024-07-26 14:31 | Emergency (ER) | payer OTHER, SELFPAY ==
[2024-07-26 14:31] VITALS: BP 128/75; PULSE 78; RESP 14; TEMP 36.9; O2SAT 100; BMI 21.1
--- NOTE | 2024-07-26 14:32 | ECG_ITS ---
APPROVED REPORT Exam: Resting ECG HR:79 bpm ECG Measurements Heart Rate 79 AXES NC 198 P 72 QRSd 84 QRS 93 QT 380 T 59 QTc 414 Conclusion SINUS RHYTHM BORDERLINE RIGHT AXIS DEVIATION [QRS AXIS > 90] BORDERLINE ECG Electronically signed by : JERRY CALABRESE, 07/26/2024 16:47:08
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
[2024-07-26 14:59] LABS: Microscopic, Urine URINE MICROSCOPIC (MICROSCOPIC)
[2024-07-26 15:00] VITALS: BP 114/66; PULSE 73; RESP 14; O2SAT 100
[2024-07-26 15:06] LABS: Lipase 104 U/L (23-300)
[2024-07-26] MEDS: ASPIRIN 325MG TABLET 325 MG PO (15:06)
[2024-07-26 15:07] LABS: Alanine Aminotransferase 40 U/L (12-78); Albumin Level 4.9 g/dl (3.5-5.0); Albumin/Globulin Ratio 1.9 (1.1-1.8); Alkaline Phosphatase 49 U/L (38-126); Anion Gap 11.6 mEq/L (5-15); Aspartate Amino Transferase 36 U/L (14-36); Bilirubin,Total 0.7 mg/dl (0.2-1.3); Blood Urea Nitrogen 7 mg/dl (7-17); Calcium 9.3 mg/dl (8.4-10.2); Carbon Dioxide 25 mmol/L (22.0-30.0); Chloride 105 mmol/L (98-107); Creatinine Clearance Estimated 141 mL/min (50-200); Estimated Glomerular Filt Rate 124 ml/min (>60); GFR (African American) 150 ML/MIN (>60); Globulin 2.6 g/dL (1.3-3.2); Glucose 91 mg/dl (74-100); Potassium 3.6 mmoL/L (3.5-5.1); Sodium 138 mmol/L (136-145); Total Protein,Serum 7.5 g/dl (6.3-8.2)
[2024-07-26 15:16] LABS: Appearance,Urine CLEAR (Clear); Bilirubin,Urine Negative (Negative); Blood, Urine Negative (Negative); Glucose,Urine (UA) Negative (Negative); Ketones,Urine Negative (Negative); Leukocyte Esterase,Urine Negative (Negative); Nitrate,Urine Negative (Negative); Protein,Urine Negative (Negative); Specific Gravity, Urine <= 1.005 (1.005-1.030); Urobilinogen,Urine 0.2 EU/dl (0.2)
[2024-07-26 15:16] LABS: NT Pro Brain Natriuretic Pep. 74.2 pg/mL (0-125)
[2024-07-26 15:17] LABS: Color,Urine Straw (Yellow)
[2024-07-26 15:19] LABS: Hematocrit 38.8 % (37.0-47.0); Hemoglobin 13.5 g/dL (12.2-16.2); Mean Corpuscular HGB Conc 34.8 g/dL (31.8-35.4); Mean Corpuscular Hemoglobin 29.5 pg (27.0-31.2); Mean Corpuscular Volume 84.7 fl (81-99); Red Blood Count 4.58 M/mm3 (4.20-5.40)
[2024-07-26 15:20] LABS: Basophils # 0.1 K/mm3 (0-0.2); Basophils % 0.6 % (0.1-2.0); Eosinophils % 0.4 % (0.1-12.0); Lymphocytes # 2.4 K/mm3 (0.7-4.5); Lymphocytes % 29.5 % (10-50); Mean Platelet Volume 9.9 fl (7.4-10.4); Monocytes # 0.7 K/mm3 (0.1-1.0); Monocytes % 8.6 % (1.7-9.3); Neutrophils # 4.9 K/mm3 (1.8-7.8); Neutrophils % 60.8 % (37.0-80.0); Platelet Count 225 K/mm3 (142-424); Red Cell Distribution Width 12.1 % (11.5-17.5)
[2024-07-26 15:21] LABS: Troponin I < 0.01 ng/ml (0.00-0.034)
[2024-07-26 15:30] VITALS: BP 109/65; PULSE 75; RESP 15; O2SAT 100
[2024-07-26 15:32] LABS: WBC,Urine Occasional #/hpf (0-3)
[2024-07-26 15:33] LABS: Bacteria,Urine Trace /lpf
[2024-07-26 15:53] LABS: HCG,Quantitative 49150 mIU/ml (0-5.42)
--- NOTE | 2024-07-26 16:49 | PC.NURSE ---
CHARLI AT BEDSIDE TO UPDATE PT REPEAT TROP ANALIA
[2024-07-26 17:52] LABS: Troponin I < 0.01 ng/ml (0.00-0.034)
[2024-07-26 17:58] VITALS: BP 110/66; PULSE 76; RESP 16; TEMP 36.7; O2SAT 97
[2024-07-27 08:15] LABS: HCV Ab Non Reactive (Non Reactive)
== END 2024-07-26 18:04 | disposition home or self-care (01) ==
PROVIDERS: Physician Assistant; Emergency Provider Emergency Medicine
DX: R07.9 Chest pain, unspecified (principal); R06.02 Shortness of breath
CPT/HCPCS: 80053; 81001; 83690; 83735; 83880; 84484; 84702; 85025; 86803; 93005; 99283

== ENCOUNTER 2024-08-07 11:40 | Outpatient (CLI) | payer OTHER, SELFPAY ==
[2024-08-07 12:09] LABS: Basophils % 0.5 % (0.1-2.0); Eosinophils % 0.3 % (0.1-12.0); Hematocrit 36.6 % (37.0-47.0); Hemoglobin 12.7 g/dL (12.2-16.2); Lymphocytes # 1.8 K/mm3 (0.7-4.5); Lymphocytes % 23.4 % (10-50); Mean Corpuscular HGB Conc 34.7 g/dL (31.8-35.4); Mean Corpuscular Hemoglobin 29.3 pg (27.0-31.2); Mean Corpuscular Volume 84.5 fl (81-99); Mean Platelet Volume 9.9 fl (7.4-10.4); Monocytes # 0.5 K/mm3 (0.1-1.0); Monocytes % 6.1 % (1.7-9.3); Neutrophils # 5.4 K/mm3 (1.8-7.8); Neutrophils % 69.4 % (37.0-80.0); Platelet Count 206 K/mm3 (142-424); Red Blood Count 4.33 M/mm3 (4.20-5.40); Red Cell Distribution Width 11.9 % (11.5-17.5); White Blood Count 7.8 K/mm3 (4.8-10.8)
[2024-08-07 13:41] LABS: HIV Combo NEGATIVE (Negative)
[2024-08-07 17:51] LABS: RPR W/RFX Titers Nonreactive (Nonreactive)
[2024-08-08 06:13] LABS: HCV Ab Non Reactive (Non Reactive); Hepatitis B Surface Antigen Negative (Negative)
[2024-08-08 09:09] LABS: Rubella Antibodies, IgG <0.90 index (Immune >0.99)
== END 2024-08-07 23:59 | disposition home or self-care (01) ==
LOC: LAB 11:41
PROVIDERS: Visit Provider Obstetrics & Gynecology
DX: Z34.81 Encounter for supervision of other normal pregnancy, first trimester (principal)
CPT/HCPCS: 36415; 85025; 86592; 86762; 86803; 86850; 87086; 87340; 87389

== ENCOUNTER 2024-08-31 07:43 | Outpatient (CLI) | payer OTHER, SELFPAY ==
--- NOTE | 2024-08-31 07:44 | US_ITS ---
FINAL REPORT CLINICAL HISTORY: ruq pain COMPARISON: None FINDINGS: RUQ ULTRASOUND: Sonographic images of the right upper quadrant were obtained. The pancreas is unremarkable.The liver has an unremarkable appearance. There are several echogenic nonshadowing foci present contiguous with the gallbladder wall, that have an appearance most suggestive of gallbladder polyps. There is no evidence of biliary ductal dilatation.The common duct measures 3 mm. Limited images of the right kidney are unremarkable. IMPRESSION: Several echogenic nonshadowing foci contiguous with the gallbladder wall that have an appearance most suggestive of gallbladder polyps. No biliary ductal dilatation is seen. Reviewed, Interpreted and Dictated by Jacob Herman MD Transcribed by Ceci Cruz Authenticated and [facility]
[2024-08-31 10:20] LABS: Alanine Aminotransferase 29 U/L (12-78); Albumin Level 5.4 g/dl (3.5-5.0); Albumin/Globulin Ratio 2.3 (1.1-1.8); Alkaline Phosphatase 36 U/L (38-126); Anion Gap 17.1 mEq/L (5-15); Aspartate Amino Transferase 29 U/L (14-36); Bilirubin,Total 0.8 mg/dl (0.2-1.3); Blood Urea Nitrogen 9 mg/dl (7-17); Calcium 9.6 mg/dl (8.4-10.2); Carbon Dioxide 22 mmol/L (22.0-30.0); Chloride 104 mmol/L (98-107); Estimated Glomerular Filt Rate 153 ml/min (>60); GFR (African American) 185 ML/MIN (>60); Globulin 2.3 g/dL (1.3-3.2); Glucose 115 mg/dl (74-100); Potassium 4.1 mmoL/L (3.5-5.1); Sodium 139 mmol/L (136-145); Total Protein,Serum 7.7 g/dl (6.3-8.2)
== END 2024-08-31 23:59 | disposition home or self-care (01) ==
PROVIDERS: PCP Nurse Practitioner Family; Visit Provider Obstetrics & Gynecology
DX: R10.11 Right upper quadrant pain (principal)
CPT/HCPCS: 36415; 76705; 80053

== ENCOUNTER 2024-09-13 14:26 | Outpatient (CLI) | payer OTHER, SELFPAY ==
[2024-09-13 17:25] LABS: Total Volume,Urine 1250 mL (600-1600)
[2024-09-13 17:33] LABS: Total Protein 24 Hour,Urine 100 mg/24 hr (40-90)
== END 2024-09-13 23:59 | disposition home or self-care (01) ==
LOC: LAB 14:27
PROVIDERS: Visit Provider Obstetrics & Gynecology
DX: O09.299 Supervision of pregnancy with other poor reproductive or obstetric history, unspecified trimester (principal)
CPT/HCPCS: 84155

== ENCOUNTER 2024-10-03 12:02 | Outpatient (CLI) | payer OTHER, SELFPAY ==
--- NOTE | 2024-10-03 12:05 | US_ITS ---
PROCEDURE: US OB TRANSVAGINAL CLINICAL INDICATION: Check Cervical Length for Pelvic Pressure COMPARISON: US US ABDOMEN LIMITED from 08/31/2024 FINDINGS: Transvaginal sonographic images of the uterus and cervix were obtained. From her established due date she is 17weeks 1day. The following parameters are obtained: Viable Fetus in the cephalic presentation The cervix measures 3.35 cm-3.60 cm transvaginal. Measurements: heart Rate = 152bpm IMPRESSION: 1. Viable fetus in the cephalic presentation. 2. Subjectively the fluid appears normal. 3. The cervix is measured transvaginally 3.35 cm-3.60 cm in length. Dictated by: Ulices Gomez MD 10/03/2024 14:16 Ulices Gomez MD in [place] 10/03/2024 14:16
== END 2024-10-03 23:59 | disposition home or self-care (01) ==
LOC: RAD 12:02
PROVIDERS: Visit Provider Obstetrics & Gynecology
DX: Z36.86 Encounter for antenatal screening for cervical length (principal); O26.892 Other specified pregnancy related conditions, second trimester; R10.10 Upper abdominal pain, unspecified; R10.2 Pelvic and perineal pain; Z3A.17 17 weeks gestation of pregnancy
CPT/HCPCS: 76817

== ENCOUNTER 2024-10-24 12:51 | Outpatient (CLI) | payer OTHER, SELFPAY ==
--- NOTE | 2024-10-24 12:51 | US_ITS ---
PROCEDURE: US OB /MATERNAL DETAIL CLINICAL INDICATION: 20 week Anatomy Scan-Complete COMPARISON: US US OB TRANSVAGINAL from 10/03/2024 FINDINGS: Transabdominal sonographic images of the pelvis were obtained. From her established due date she is 20 weeks 1 day. Single viable intrauterine gestation. Cephalic position. Placenta: Anteriorplacenta grade 1. On the inferior aspect of the placenta there is a large fluid-filled area that appears to show movement of blood or clot. It is at least 12 cm by 2.5 cm. This could represent an old abruption or possibly a very large clot. There are hyperechoic areas possibly consistent with resolving clot. There is an average amount of fluid The cervix appears satisfactory. Closed and measuring 3.01 cm in length. Complete survey performed and was unremarkable on the submitted images as in PACS. No discrete anomalies identified on survey imaging by technologist. Active fetus. Three-vessel cord with satisfactory umbilical cord insertion. 4- chamber heart noted. Situs, aortic arch, LVOT, RVOT, three-vessel view appear normal. Survey of brain & ventricles Unremarkable. Cerebellum, thalamus, choroid plexus, cisterna magna appear normal. Face and neck survey unremarkable. Profile, nasion, lips and nose appeared normal. Diaphragm and chest views unremarkable. Abdomen: Both kidneys noted and unremarkable. Stomach and bladder noted and satisfactory. Spine: Survey of the spine satisfactory with no anomalies identified nor imaged. Cervical, thoracic, lower spine appear normal. Both arms and legs noted. Amniotic Fluid: Adequate. MVP 3.62 cm Measurements: Average ultrasound age 20weeks 3days. Estimated due date by ultrasound age 0803/10/2025. Estimated weight 344g BPD = 20weeks 4days HC = 20weeks 2days AC = 20weeks 4days FL = 20weeks 1day Growth Percentile= 54 Heart Rate = 140bpm Cerebellum = 19weeks 1day Humerus = 20weeks 6days HC/AC is 1.16 FL/BPD is 0.67 FL/AC is 0.21 IMPRESSION: 1. Viable fetus in the cephalic presentation with an anterior placenta within the uterine cavity. 2. On the inferior aspect of the placenta there is an area at least 12 cm x 2.5 cm that appears to be a clot. Unlikely a placental Weiss given its large size. There are hyperechoic areas consistent with a clot. Suggest a maternal medicine consult. 3. The fluid is within normal limits with an MVP 3.62 cm. 4. Anatomical scan appears normal. 5. biometry is consistent with the dates. Dictated by: Ulices Gomez MD 10/24/2024 14:09 Ulices Gomez MD in [facility] 10/24/2024 14:09
== END 2024-10-24 23:59 | disposition home or self-care (01) ==
LOC: RAD 12:51
PROVIDERS: Visit Provider Obstetrics & Gynecology
DX: Z36.3 Encounter for antenatal screening for malformations (principal); O34.219 Maternal care for unspecified type scar from previous cesarean delivery; O09.292 Supervision of pregnancy with other poor reproductive or obstetric history, second trimester; Z3A.20 20 weeks gestation of pregnancy
CPT/HCPCS: 76811

== ENCOUNTER 2024-11-04 20:05 | Outpatient (CLI) | payer OTHER, SELFPAY ==
[2024-11-04 20:13] VITALS: BMI 19.1
[2024-11-04 20:22] VITALS: BP 110/69; PULSE 77; RESP 15; TEMP 36.8; O2SAT 100; BMI 19.1
[2024-11-04 20:30] LABS: Microscopic, Urine URINE MICROSCOPIC (MICROSCOPIC)
[2024-11-04 20:32] LABS: Bilirubin,Urine Negative (Negative); Blood, Urine 3+ (Negative); Glucose,Urine (UA) Negative (Negative); Ketones,Urine Negative (Negative); Leukocyte Esterase,Urine Negative (Negative); Nitrate,Urine Negative (Negative); Protein,Urine 2+ (Negative); Specific Gravity, Urine 1.015 (1.005-1.030); Urobilinogen,Urine 0.2 EU/dl (0.2)
[2024-11-04 20:33] LABS: Appearance,Urine Cloudy (Clear); Color,Urine Red (Yellow)
[2024-11-04 20:45] LABS: Bacteria,Urine Trace /lpf; RBC,Urine TNTC #/hpf (0-3)
[2024-11-04] MEDS: ACETAMINOPHEN 500MG TAB 1000 MG PO (21:17)
[2024-11-04] MEDS: DEXTROSE 5%-LACTATED RINGERS 1,000 ML 999 ML IV (21:27)
[2024-11-04 21:42] LABS: Basophils # 0.1 K/mm3 (0-0.2); Basophils % 0.5 % (0.1-2.0); Eosinophils # 0.1 K/mm3 (0.0-0.4); Eosinophils % 0.8 % (0.1-12.0); Hematocrit 37.1 % (37.0-47.0); Hemoglobin 12.8 g/dL (12.2-16.2); Lymphocytes # 3.2 K/mm3 (0.7-4.5); Lymphocytes % 26.2 % (10-50); Mean Corpuscular HGB Conc 34.5 g/dL (31.8-35.4); Mean Corpuscular Hemoglobin 30.5 pg (27.0-31.2); Mean Corpuscular Volume 88.5 fl (81-99); Mean Platelet Volume 9.7 fl (7.4-10.4); Monocytes # 1.1 K/mm3 (0.1-1.0); Monocytes % 8.5 % (1.7-9.3); Neutrophils # 7.8 K/mm3 (1.8-7.8); Neutrophils % 63.6 % (37.0-80.0); Platelet Count 239 K/mm3 (142-424); Red Blood Count 4.19 M/mm3 (4.20-5.40); Red Cell Distribution Width 12.9 % (11.5-17.5); White Blood Count 12.3 K/mm3 (4.8-10.8)
[2024-11-04 21:45] LABS: Chloride 103 mmol/L (98-107)
[2024-11-04 21:46] LABS: Albumin Level 4.8 g/dl (3.5-5.0); Potassium 3.7 mmoL/L (3.5-5.1); Sodium 137 mmol/L (136-145)
[2024-11-04 21:49] LABS: Alanine Aminotransferase 16 U/L (12-78); Albumin/Globulin Ratio 1.9 (1.1-1.8); Alkaline Phosphatase 56 U/L (38-126); Anion Gap 12.7 mEq/L (5-15); Aspartate Amino Transferase 23 U/L (14-36); Bilirubin,Total 0.5 mg/dl (0.2-1.3); Blood Urea Nitrogen 11 mg/dl (7-17); Calcium 9.7 mg/dl (8.4-10.2); Carbon Dioxide 25 mmol/L (22.0-30.0); Creatinine Clearance Estimated 158 mL/min (50-200); Estimated Glomerular Filt Rate 153 ml/min (>60); GFR (African American) 185 ML/MIN (>60); Globulin 2.5 g/dL (1.3-3.2); Glucose 77 mg/dl (74-100); Total Protein,Serum 7.3 g/dl (6.3-8.2)
== END 2024-11-04 22:30 | disposition home or self-care (01) ==
LOC: OBOUT 20:08 → OB 20:08
PROVIDERS: Visit Provider Obstetrics & Gynecology
DX: O26.892 Other specified pregnancy related conditions, second trimester (principal); Z3A.21 21 weeks gestation of pregnancy; R31.9 Hematuria, unspecified
CPT/HCPCS: 80053; 81001; 85025; G0463

== ENCOUNTER 2024-11-05 09:48 | Outpatient (CLI) | payer OTHER, SELFPAY ==
--- NOTE | 2024-11-05 10:00 | US_ITS ---
FINAL REPORT CLINICAL HISTORY: flank pain 22 weeks / blood in urine / hx of kidney stones FINDINGS: RENAL ULTRASOUND Ultrasound images of the kidneys were obtained. The right kidney measures 10.6 cm in length. The left kidney measures 10.2 cm in length. There is moderate right hydronephrosis. There is mild left hydronephrosis. This is favored to represent physiologic hydronephrosis of . There is no obvious stone disease. There is no solid mass. IMPRESSION: Bilateral hydronephrosis, greatest on the right, favor physiologic hydronephrosis of . Reviewed, Interpreted and Dictated by Mkie Jacobson MD Transcribed by Alejandra Stoddard Authenticated and [facility]
== END 2024-11-05 23:59 | disposition home or self-care (01) ==
LOC: RAD 09:49
PROVIDERS: PCP Obstetrics & Gynecology; Visit Provider Obstetrics & Gynecology
DX: R10.9 Unspecified abdominal pain (principal); R31.9 Hematuria, unspecified; Z87.442 Personal history of urinary calculi; Z3A.22 22 weeks gestation of pregnancy
CPT/HCPCS: 76770

== ENCOUNTER 2024-11-10 13:00 | Emergency (ER) | payer OTHER, SELFPAY ==
[2024-11-10] VITALS (10 sets, daily range): BP systolic 106–136; BP diastolic 57–71; PULSE 65–88; RESP 15–18; TEMP 36.4–36.7; O2SAT 98–100; BMI 22.2
[2024-11-10 13:32] LABS: Microscopic, Urine URINE MICROSCOPIC (MICROSCOPIC)
[2024-11-10 13:41] LABS: Appearance,Urine SL CLOUDY (Clear); Bilirubin,Urine Negative (Negative); Blood, Urine 3+ (Negative); Color,Urine YELLOW (Yellow); Glucose,Urine (UA) Negative (Negative); Ketones,Urine Negative (Negative); Leukocyte Esterase,Urine Negative (Negative); Nitrate,Urine Negative (Negative); PH,Urine 7.5 (5.0-8.5); Protein,Urine Negative (Negative); Urobilinogen,Urine 0.2 EU/dl (0.2)
--- NOTE | 2024-11-10 13:46 | PC.NURSE ---
FHT'S PER DOPPLER [id number]
[2024-11-10 13:55] LABS: RBC,Urine 50-100 #/hpf (0-3)
[2024-11-10] MEDS: LACTATED RINGERS 1000ML 1,000 ML 999 ML IV (14:10)
[2024-11-10] MEDS: ACETAMINOPHEN 1,000MG/100ML VIAL 1000 MG IV (14:11)
[2024-11-10 14:30] LABS: Basophils % 0.4 % (0.1-2.0); Eosinophils # 0.1 K/mm3 (0.0-0.4); Hemoglobin 12.4 g/dL (12.2-16.2); Lymphocytes # 2.1 K/mm3 (0.7-4.5); Lymphocytes % 20.4 % (10-50); Mean Corpuscular HGB Conc 34.4 g/dL (31.8-35.4); Mean Corpuscular Hemoglobin 30.9 pg (27.0-31.2); Mean Corpuscular Volume 89.8 fl (81-99); Mean Platelet Volume 9.8 fl (7.4-10.4); Monocytes # 0.8 K/mm3 (0.1-1.0); Monocytes % 8.1 % (1.7-9.3); Neutrophils # 7.2 K/mm3 (1.8-7.8); Neutrophils % 69.7 % (37.0-80.0); Platelet Count 224 K/mm3 (142-424); Red Blood Count 4.01 M/mm3 (4.20-5.40); Red Cell Distribution Width 12.9 % (11.5-17.5); White Blood Count 10.4 K/mm3 (4.8-10.8)
--- NOTE | 2024-11-10 14:43 | PC.NURSE ---
currently on phone with for a Urology consult per Dr Ibarra. will call back.
[2024-11-10 14:49] LABS: Albumin Level 4.4 g/dl (3.5-5.0); Chloride 103 mmol/L (98-107); Potassium 3.9 mmoL/L (3.5-5.1); Sodium 137 mmol/L (136-145)
[2024-11-10 14:52] LABS: Alanine Aminotransferase 17 U/L (12-78); Albumin/Globulin Ratio 1.4 (1.1-1.8); Alkaline Phosphatase 67 U/L (38-126); Aspartate Amino Transferase 23 U/L (14-36); Bilirubin,Total 0.4 mg/dl (0.2-1.3); Blood Urea Nitrogen 6 mg/dl (7-17); Creatinine Clearance Estimated 99 mL/min (50-200); Estimated Glomerular Filt Rate 78 ml/min (>60); GFR (African American) 94 ML/MIN (>60); Globulin 3.1 g/dL (1.3-3.2); Total Protein,Serum 7.5 g/dl (6.3-8.2)
[2024-11-10 14:53] LABS: Calcium 9.6 mg/dl (8.4-10.2); Glucose 84 mg/dl (74-100)
[2024-11-10 15:14] LABS: Anion Gap 10.9 mEq/L (5-15); Carbon Dioxide 27 mmol/L (22.0-30.0)
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
--- NOTE | 2024-11-10 16:01 | PC.NURSE ---
DR CALABRESE SPEAKING WITH [facility]
--- NOTE | 2024-11-10 16:33 | PC.NURSE ---
DR MCARTHUR AT BEDSIDE TO UPDATE PT
== END 2024-11-10 17:01 | disposition home or self-care (01) ==
PROVIDERS: Emergency Medicine; Emergency Provider Emergency Medicine
DX: O26.899 Other specified pregnancy related conditions, unspecified trimester (principal); N13.30 Unspecified hydronephrosis; R10.30 Lower abdominal pain, unspecified; R31.9 Hematuria, unspecified; Z3A.22 22 weeks gestation of pregnancy
CPT/HCPCS: 80053; 81001; 85025; 87086; 96361; 96374; 99284; J0131; J7120

== ENCOUNTER 2024-12-27 10:28 | Outpatient (CLI) | payer OTHER, SELFPAY ==
[2024-12-27 12:05] LABS: Basophils % 0.4 % (0.1-2.0); Eosinophils % 0.4 % (0.1-12.0); Hematocrit 35.9 % (37.0-47.0); Immature Granulocytes # 0.05 10^3uL; Immature Granulocytes % 0.5 %; Lymphocytes % 21.7 % (10-50); Mean Corpuscular HGB Conc 33.4 g/dL (31.8-35.4); Mean Corpuscular Hemoglobin 29.3 pg (27.0-31.2); Mean Corpuscular Volume 87.6 fl (81-99); Mean Platelet Volume 10.1 fl (7.4-10.4); Monocytes # 0.9 K/mm3 (0.1-1.0); Monocytes % 9.4 % (1.7-9.3); Neutrophils # 6.2 K/mm3 (1.8-7.8); Neutrophils % 67.6 % (37.0-80.0); Nucleated Red Blood Cells # 0 10^3/uL; Nucleated Red Blood Cells % 0 %; Platelet Count 181 K/mm3 (142-424); Red Cell Distribution Width 11.9 % (11.5-17.5); Red Cell Distribution Width-SD 37.8 fL; White Blood Count 9.2 K/mm3 (4.8-10.8)
[2024-12-27 12:10] LABS: Glucose 1 Hour 78 mg/dL (74-100)
[2024-12-28 11:09] LABS: RPR W/RFX Titers Nonreactive (Nonreactive)
== END 2024-12-27 23:59 | disposition home or self-care (01) ==
LOC: LAB 10:29
PROVIDERS: Visit Provider Obstetrics & Gynecology
DX: O26.899 Other specified pregnancy related conditions, unspecified trimester (principal); R10.9 Unspecified abdominal pain; Z3A.00 Weeks of gestation of pregnancy not specified
CPT/HCPCS: 36415; 82947; 85025; 86592

== ENCOUNTER 2025-01-05 14:40 | Outpatient (CLI) | payer OTHER, SELFPAY ==
[2025-01-05 15:13] VITALS: BMI 24.7
[2025-01-05 15:14] VITALS: BP 125/75; PULSE 83; RESP 17; TEMP 36.7; O2SAT 100; BMI 24.7
[2025-01-05 15:16] LABS: Microscopic, Urine URINE MICROSCOPIC (MICROSCOPIC)
[2025-01-05 15:20] LABS: Appearance,Urine CLEAR (Clear); Bilirubin,Urine Negative (Negative); Blood, Urine Negative (Negative); Color,Urine YELLOW (Yellow); Glucose,Urine (UA) Negative (Negative); Ketones,Urine Negative (Negative); Leukocyte Esterase,Urine Negative (Negative); Nitrate,Urine Negative (Negative); Protein,Urine Negative (Negative); Specific Gravity, Urine <= 1.005 (1.005-1.030); Urobilinogen,Urine 0.2 EU/dl (0.2)
[2025-01-05 15:29] LABS: Bacteria,Urine Trace /lpf; Fetal Membrane Rupture (Rapid) Negative (Negative); Squamous Epithelial Cell,Urine Occasional #/hpf (0-5)
== END 2025-01-05 15:39 | disposition home or self-care (01) ==
LOC: OBOUT 14:42 → OB 14:42
PROVIDERS: Visit Provider Obstetrics & Gynecology
DX: Z34.83 Encounter for supervision of other normal pregnancy, third trimester (principal); Z3A.30 30 weeks gestation of pregnancy
CPT/HCPCS: 59025; 81001; 84112; 99212; G0463

== ENCOUNTER 2025-01-11 13:21 | Outpatient (CLI) | payer OTHER, SELFPAY ==
--- OUTSIDE RECORDS SUMMARY | 2025-01-11 13:25 | XMS_ITS | Encounter Summary ---
Author Organization [employer] Address [address] [place] [id number] Care Team Providers Care Neuropathologist Name Role Phone Unavailable Primary Care Provider Unavailabl e Encounter Details Date Type Department Care Team (Late st Contact Info) Description 04/10/2021 Transcribed Document [facility] [place] [facility] [address] [place] [address] ProviderJuan Carlos MD [address] [place], [place] [id number] Social History Tobacco Use Types Packs/Day Years Used Date Smoking Tobacco: Never Assessed Comments Unknown Sex and Gender Information Value Date Recorded Sex Assigned at Female 02/02/2022 8:54 PM CDT Legal Sex Female 8:54 PM CDT Gender Identity Female 02/02/2022 8:54 PM CDT Sexual Orientation Not on file documented as of this encounter Miscellaneous Notes * Cerner Conversion Note - Historical ProviderMD - 04/10/2021 5:27 AM CDT Broset Violence Assessment Entered On: 04/10/2021 6:47 EDT Performed On: 04/10/2021 6:46 EDT by Nasreen Aldridge RN-PATIENT CARE BEDSIDE NON-EXEMPT Broset Violence Assessment Broset Violence Checklist of Symptoms : None Broset Violence Symptoms Subtotal : 0 Broset Violence Symptoms Indicator : Low risk (0) Nasreen Aldridge RN-PATIENT CARE BEDSIDE NON-EXEMPT - 04/10/2021 6:46 EDT documented in this encounter Plan of Treatment Not on file documented as of this encounter Visit Diagnoses Not on filedocumented in this encounter
--- OUTSIDE RECORDS SUMMARY | 2025-01-11 13:25 | XMS_ITS | Clinical Summary ---
Author Organization [employer] Address [address] [place] [address] Care Team Providers Care Crime Prevention Worker Name Role Phone Unavailable Primary Care Provider Unavailabl e Social History Tobacco Use Types Packs/Day Years Used Date Smoking Tobacco: Never Assessed Comments Unknown Sex and Gender Information Value Date Recorded Sex Assigned at Female 02/02/2022 8:54 PM CDT Legal Sex Female 8:54 PM CDT Gender Identity Female 02/02/2022 8:54 PM CDT Sexual Orientation Not on file Plan of Treatment Not on file
--- OUTSIDE RECORDS SUMMARY | 2025-01-11 13:25 | XMS_ITS | Encounter Summary ---
Author Organization [employer] Address [address] [place] [address] Care Team Providers Care Biomathematician Name Role Phone Unavailable Primary Care Provider Unavailabl e Encounter Details Date Type Department Care Team (Late st Contact Info) Description 04/11/2021 Transcribed Document [facility] [place] [address] [place] [address] ProviderJuan Carlos MD [address] [place] [address] Social History Tobacco Use Types Packs/Day Years Used Date Smoking Tobacco: Never Assessed Comments Unknown Sex and Gender Information Value Date Recorded Sex Assigned at Female 02/02/2022 8:54 PM CDT Legal Sex Female 8:54 PM CDT Gender Identity Female 02/02/2022 8:54 PM CDT Sexual Orientation Not on file documented as of this encounter Miscellaneous Notes * Cerner Conversion Note - Historical ProviderMD - 04/11/2021 1:04 PM CDT ED Event Note Entered On: 04/11/2021 13:05 EDT Performed On: 04/11/2021 13:04 EDT by Lacey Chau RN ED Event Note ED Event Date/Time : 04/11/2021 13:04 EDT ED Description of Event : pt reports her blood type is A+ per her mother Lacey Chau RN - 04/11/2021 13:04 EDT documented in this encounter Plan of Treatment Not on file documented as of this encounter Visit Diagnoses Not on filedocumented in this encounter
--- OUTSIDE RECORDS SUMMARY | 2025-01-11 13:25 | XMS_ITS | Encounter Summary ---
Author Organization [employer] Address [address] [place] [address] Care Team Providers Care Punchboard Filling Machine Operator Name Role Phone Unavailable Primary Care Provider Unavailabl e Encounter Details Date Type Department Care Team (Late st Contact Info) Description 04/11/2021 Transcribed Document [facility] [place] Medicine [address] [place] [address] ProviderJuan Carlos MD [address] [place], [place] [id number] Social History Tobacco Use Types Packs/Day Years [...] Conversion Note - Historical ProviderMD - 04/11/2021 9:48 AM CDT [place] Suicide Severity Rating Scale (C-SSRS) Entered On: 04/11/2021 12:05 EDT Performed On: 04/11/2021 12:04 EDT by Lacey Chau RN [place] Suicide Severity Rating Scale (C-SSRS) CSSRS Past Month Wish to be : No CSSRS Past Month Suicidal Thoughts : No CSSRS Lifetime Suicide Behavior : No Suicide Severity Rating Score : 0 Suicide Severity Rating : No Additional Care Required at this time Lacey Chau RN - 04/11/2021 12:04 EDT documented in this encounter Plan of Treatment Not on file documented as of this encounter Visit Diagnoses Not on filedocumented in this encounter
--- OUTSIDE RECORDS SUMMARY | 2025-01-11 13:25 | XMS_ITS | Encounter Summary ---
Author Organization [employer] Address [address] [place] [address] Care Team Providers Care Wood Boatbuilder Apprentice Name Role Phone Unavailable Primary Care Provider Unavailabl e Encounter Details Date Type Department Care Team (Late st Contact Info) Description 04/07/2021 Transcribed Document [facility] [place] [facility] [place] [address] ProviderJuan Carlos MD [address] [place] [address] Social History Tobacco Use Types Packs/Day Years Used Date Smoking Tobacco: Never Assessed Comments Unknown Sex and Gender Information Value Date Recorded Sex Assigned at Female 02/02/2022 8:54 PM CDT Legal Sex Female 8:54 PM CDT Gender Identity Female 02/02/2022 8:54 PM CDT Sexual Orientation Not on file documented as of this encounter Miscellaneous Notes * Cerner Conversion Note - Juan Carlos ProviderMD - 04/07/2021 7:59 PM CDT ED Triage Entered On: 04/07/2021 21:16 EDT Performed On: 04/07/2021 21:15 EDT by MARIANA ESTEVES RN ED Triage Across the Room Chief Complaint : Pt. co cough, sorethroat, weakness, that began today. Skinpwd. Triage Date/Time : 04/07/2021 21:15 EDT MARIANA ESTEVES RN - 04/07/2021 21:15 EDT DCP GENERIC CODE Tracking Acuity : 4 - Non - Urgent Tracking Group : [facility] [place] MARIANA ESTEVES RN - 04/07/2021 21:15 EDT Mode of Arrival : Ambulatory Transported to ED by : Private vehicle To Room Via : Ambulate Accompanied By : Significant other ED Vital Signs : Document Height & Weight : Document ED Allergies : Document ED Reason for Visit : Document Status : Confirmed positive MARIANA ESTEVES RN - 04/07/2021 21:15 EDT Infectious Disease History Has the patient ever been tested for COVID-19? : Yes, Patient stated results Negative Date of COVID-19 test known? : No Does patient have symptoms of COVID-19? : Yes COVID19 Screening : No Experiencing Infectious Disease Symptoms : Cough Physical contact outside [place] in the last 30 days : No Infectious Disease History : None Tuberculosis Symptoms : None MARIANA ESTEVES RN - 04/07/2021 21:15 EDT Vital Signs ED Temperature Source : Tympanic Temperature Mode : Fahrenheit Temperature, Fahrenheit : 99.5 Deg F Clinical Temperature, C : 37.5 Deg C Oxygen Therapy Mode : Room air Peripheral Pulse Rate : 66 bpm Respiratory Rate : 18 Breaths/Min Systolic Blood Pressure : 118 mmHg Diastolic Blood Pressure : 68 mmHg Oxygen Saturation : 100 % MARIANA ESTEVES RN - 04/07/2021 21:15 EDT Allergy (As Of: 04/07/2021 21:16:55 EDT) Allergies (Active) No Known Medication Allergies Estimated Onset Date: Unspecified ; Created By: MARIANA ESTEVES RN; Reaction Status: Active ; Category: Drug ; Substance: No Known Medication Allergies ; Type: Allergy ; Updated By: MARIANA ESTEVES RN; Reviewed Date: 04/07/2021 21:15 EDT Diagnosis Control ED (As Of: 04/07/2021 21:16:55 EDT) Problems(Active) No Chronic Problems (Cerner :NKP ) Name of Problem: No Chronic Problems ; Recorder: MARIANA ESTEVES RN; Code: NKP ; Last Updated: 04/07/2021 21:16 EDT ; Life Cycle Date: 04/07/2021 ; Life Cycle Status: Active ; Vocabulary: Cerner Diagnoses(Active) Cough Date: 04/07/2021 ; Diagnosis Type: Reason For Visit ; Confirmation: Complaint of ; Clinical Dx: Cough ; Classification: Medical ; Clinical Service: Emergency medicine ; Code: PNED ; Probability: 0 ; Diagnosis Code: [id number] ED Height and Weight Height Source : Measured Height Entry Format : Hendricks Height, Feet : 5 ft(Converted to: 152 cm, 60 Inch) Height, Inches : 7 Inch(Converted to: 0 ft 7 Inch, 17.78 cm) Clinical Height : 170.18 cm Weight Source, ED : Standing scale Weight Entry Format : Hendricks Weight, Pounds : 128 lb Clinical Dosing Weight : 58.18 kg Body Surface Area (BSA) : 1.67 m2 Body Mass Index : 20.1 kg/m2 Garfield Body Weight (IBW) : 61.16 kg MARIANA ESTEVES RN - 04/07/2021 21:15 EDT documented in this encounter Plan of Treatment Not on file documented as of this encounter Visit Diagnoses Not on filedocumented in this encounter
--- OUTSIDE RECORDS SUMMARY | 2025-01-11 13:25 | XMS_ITS | Encounter Summary ---
Author Organization [employer] Address [address] [place] [address] Care Team Providers Care Aging Room Hand Name Role Phone Unavailable Primary Care Provider Unavailabl e Encounter Details Date Type Department Care Team (Late st Contact Info) Description 04/07/2021 Transcribed Document [facility] [place] Family Medicine [facility] [place] [address] ProviderJuan Carlos MD [address] [place] [address] Social History Tobacco Use Types [...] ProviderMD - 04/07/2021 7:59 PM CDT ED Assessment Entered On: 04/08/2021 0:17 EDT Performed On: 04/08/2021 0:16 EDT by MARIANA ESTEEVS RN ED Quick Look Assessment Level of Consciousness : Alert MARIANA ESTEVES RN - 04/08/2021 0:16 EDT ED General-Functional Assess Information Obtained From : Patient Preferred Communication Mode : Verbal Communication Barrier : None Primary Language : Macanese General Information Comment : seen by provider only Any Spiritual/Cultural Needs or Requests : No Currently in Unsafe Situation : No MARIANA ESTEVES RN - 04/08/2021 0:16 EDT Social Habits Smoking Status : Never (less than 100 in lifetime; none in last 30 days) Smokeless Tobacco Status : Never Desires Tobacco Cessation Calc : 0 MARIANA ESTEVES RN - 04/08/2021 0:16 EDT Social History (As Of: 04/08/2021 00:17:06 EDT) documented in this encounter Plan of Treatment Not on file documented as of this encounter Visit Diagnoses Not on filedocumented in this encounter
--- OUTSIDE RECORDS SUMMARY | 2025-01-11 13:25 | XMS_ITS | Encounter Summary ---
Author Organization [employer] Address [address] [place] [address] Care Team Providers Care Radio Division Lieutenant Name Role Phone Unavailable Primary Care Provider Unavailabl e Encounter Details Date Type Department Care Team (Late st Contact Info) Description 04/07/2021 Transcribed Document [facility] [place] Medicine [address] [place] [address] ProviderJuan Carlos MD [address] [place] [address] Social History Tobacco Use Types [...] Cerner Conversion Note - Historical ProviderMD - 04/07/2021 11:58 PM CDT Electronically signed by Chana [facility] Conversion Deputy Sheriff Cerner at 11/21/2022 11:36 PM CDT documented in this encounter Plan of Treatment Not on file documented as of this encounter Visit Diagnoses Not on filedocumented in this encounter
--- OUTSIDE RECORDS SUMMARY | 2025-01-11 13:25 | XMS_ITS | Encounter Summary ---
Author Organization [employer] Address [address] [place] [id number] Care Team Providers Care Atg Java Developer Name Role Phone Unavailable Primary Care Provider Unavailabl e Encounter Details Date Type Department Care Team (Late st Contact Info) Description 04/10/2021 Transcribed Document [facility] [place] [facility] [place] [address] ProviderJuan Carlos MD [address] [place] [address] Social History Tobacco Use Types [...] Conversion Note - Juan Carlos ProviderMD - 04/10/2021 8:45 [place] [address] LIBERTAD DE LEON :2000 Visit Time:04/10/2021 Your Visit Summary Your Care Team Primary Provider: FUAD MÉNDEZ Secondary Provider: Your Diagnosis COVID-19 Medical screening exam Medication administration Medical Information You may obtain a copy of your Emergency Department visit from Medical Records by calling the hospital phone number listed above and asking to be directed to the Medical Records Department. If you had special tests, such as EKG???s or X-rays, the interpretation of your tests given to you by the Emergency Department Physician is a preliminary report. Some fractures and illnesses fail to show up on preliminary tests. These will be reviewed again and we will call you if there are any new suggestions. If your symptoms continue notify your physician. After you leave, you should follow the instructions provided. What to do next Follow-Up Appointments Follow Up with [facility] When Within 2 to 3 days Comments Ob, can call to see if they are taking new high risk patients for follow up, or High Risk [phone] Where: [address] [place] [id number] [facility] (1) Follow Up with For a clinic referral service , just dial: [phone] (WELL) Our experts will provide you with a physician name and their contact information. When Within 2 to 3 days Allergies No Known Medication Allergies Immunizations This Visit No Immunizations Found Medications What How Much When Instructions Next Dose multivitamin, ( Multivitamins) 1 Tablet(s) Oral Every Day ondansetron (Zofran 4 mg oral tablet) 1 Tablet(s) Oral Two Times A Day The home medications listed are only as accurate as the information you provided. Please continue taking all of your medications prescribed by your Primary Care Provider unless specifically told to change or discontinue the medication. Please direct any questions regarding your home medications to your Primary Care Provider. Take your medications faithfully. Do NOT skip medication. Do NOT stop taking medications without the direction of a physician. Carry a list of your medications with you at all times, and take this medication list with you to your first follow up visit. Report any side effects. Avoid herbal remedies unless discussed with your physician. As part of your treatment plan, your physician may have prescribed a limited course of a controlled substance. This medication may be given to help people with moderate or severe pain or for other medical conditions, but there are risks involved with treatment. Common side effects may include nausea, constipation, drowsiness, sweating, itching, dry mouth, and rash. More serious side effects may include cognitive and motor impairment, like problems with thinking, concentrating, alertness, and movement (e.g. slowed reflexes), and driving and operating heavy machinery can be dangerous. It is important for you to talk to your physician if you have these side effects or questions. These controlled substances can produce physical dependence and be habit-forming if taken for an extended period of time, which means that the body has gotten used to them and may experience withdrawal symptoms if they are abruptly stopped. Withdrawal symptoms can include runny nose, sweating, goose bumps, diarrhea, abdominal cramping, rapid heartbeat, difficulty sleeping, and nervousness. Please dispose of unused and medications per pharmacy guidance. Test Results Laboratory or Other Results This Visit (last charted value for your 04/10/2021 visit) No Laboratory or Other Results This Visit Education Materials and COVID-19 Coronavirus disease, also called COVID-19, is an infection of the lungs and airways (respiratory tract). It is unclear at this time if makes it more likely for you to get COVID-19, or what effects the infection may have on your unborn baby. However, causes changes to your heart, your lungs, and your body's disease-fighting system (immune system). Some of these changes make it more likely for you to get sick and have more serious illness. Therefore, it is important for you to take precautions in order to protect yourself and your unborn baby. There have been studies showing that obesity and diabetes may put you at higher risk for serious illness. If you are and are obese or have diabetes, you should take extra precautions to protect yourself from the virus. Work with your health care team to develop a plan to protect yourself from all infections, including COVID-19. This is one way for you to stay healthy during your and to keep your baby healthy as well. How does this affect me? If you get COVID-19, there is a risk that you may: ??? Get a respiratory illness that can lead to pneumonia. ??? Give to your baby before 37 weeks of (premature ). If you have or may have COVID-19, your health care provider may recommend special precautions around your . This may affect how you: ??? Receive care before delivery ( care). How you visit your health care provider may change. Tests and scans may need to be performed differently. ??? Receive care during labor and delivery. This may affect your plan, including who may be with you during labor and delivery. ??? Receive care after you deliver your baby ( care). You may stay longer in the hospital and in a special room. ??? Feed your baby after he or she is born. can be an especially stressful time because of the changes in your body and the preparation involved in becoming a parent. In addition, you may be feeling especially fearful, anxious, or stressed because of COVID-19 and how it is affecting you. How does this affect my baby? It is not known whether a mother will transmit the virus to her unborn baby. There is a risk that if you get COVID-19: ??? The virus that causes COVID-19 can pass to your baby. ??? You may have premature . Your baby may require more medical care if this happens. What can I do to lower my risk? There are vaccines available to help prevent COVID-19. However, there has not been enough data collected to know if the vaccines are safe for women who are or . There is also a limited supply of the vaccines. There are experts who are making sure that the limited supply of vaccines is given first to certain groups of people who are at higher risk of getting the virus or becoming very ill from it. Everyone else will get the vaccine when more supply becomes available. If you are or , you should talk with your health care provider about the benefits and risks of receiving the vaccine. If you are or , you may choose to receive the vaccine if you are at high risk of being exposed to the virus or becoming very ill from the virus. Until the vaccines are available for everyone, it is important to continue taking steps to protect yourself and others from the virus. Cleaning and personal hygiene ??? Wash your hands often with soap and water for at least 20 seconds. If soap and water are not available, use alcohol-based hand editor in chief. ??? Avoid touching your mouth, face, eyes, or nose. ??? Clean and disinfect objects and surfaces that are frequently touched every day. These may include: ? Counters and tables. ? Doorknobs and light switches. ? Sinks and faucets. ? Electronics such as phones, remote controls, keyboards, computers, and tablets. Stay away from others ??? Stay away from people who are sick, if possible. ??? Avoid social gatherings and travel. ??? Stay home as much as possible. Follow these instructions: It is not known if the virus that causes COVID-19 can pass through breast milk to your baby. You should make a plan for feeding your infant with your family and your health care team. If you have or may have COVID-19, your health care provider may recommend that you take precautions while , such as: ??? Washing your hands before feeding your baby. ??? Wearing a mask while feeding your baby. ??? Pumping or expressing breast milk to feed to your baby. If possible, ask someone in your household who is not sick to feed your baby the expressed breast milk. ? Wash your hands before touching pump parts. ? Wash and disinfect all pump parts after expressing milk. Follow the retail marketing executive's instructions to clean and disinfect all pump parts. General instructions ??? If you think you have a COVID-19 infection, contact your health care provider right away. Tell your health care provider that you think you may have a COVID-19 infection. ??? Follow your health care provider's instructions on taking medicines. Some medicines may be unsafe to take during . ??? Cover your mouth and nose by wearing a mask or other cloth covering over your face when you go out in public. ??? Find ways to manage stress. These may include: ? Using relaxation techniques like meditation and deep breathing. ? Getting regular exercise. Most women can continue their usual exercise routine during . Ask your health care provider what activities are safe for you. ? Seeking support from family, friends, or spiritual resources. If you cannot be together in person, you can still connect by phone calls, texts, video calls, or online messaging. ? Spending time doing relaxing activities that you enjoy, like listening to music or reading a good book. ??? Ask for help if you have counseling or nutritional needs during . Your health care provider can offer advice or refer you to resources or specialists who can help you with various needs. ??? Keep all follow-up visits as told by your health care provider. This is important. Where to find more information ??? Centers for Disease Control and Prevention (CDC): www.cdc.gov/coronavirus/2019-ncov/ ??? World Health Organization (WHO): www.who.int/news-room/q-a-detail/a-b-cm-mkgml-88-ybwgjoazi-fvpojotdnl-mrq-qncf stfeeding ??? [place] [employer] (ACOG): www.acog.org/patient-resources/faqs//xkjvtfmmvpv-rgekfoqaf-qcm-breast feeding Questions to ask your health care team ??? What should I do if I have COVID-19 symptoms? How will COVID-19 affect my care visits, tests and scans, labor and delivery, and care? Should I plan to breastfeed my baby? Where can I find mental health resources? Where can I find support if I have financial concerns? Contact a health care provider if: ??? You have signs and symptoms of infection, including a fever or cough. Tell your health care team that you think you may have a COVID-19 infection. ??? You have strong emotions, such as sadness or anxiety. ??? You feel unsafe in your home and need help finding a safe place to live. ??? You have bloody or watery vaginal discharge or vaginal bleeding. Get help right away if: ??? You have signs or symptoms of labor before 37 weeks of . These include: ? Contractions that are 5 minutes or less apart, or that increase in frequency, intensity, or length. ? Sudden, sharp pain in the abdomen or in the lower back. ? A gush or trickle of fluid from your vagina. ??? You have signs of more serious illness, such as: ? You have difficulty breathing. ? You have chest pain. ? You have a fever of 102??F (39??C) or higher that does not go away. ? You cannot drink fluids without vomiting. ? You feel extremely weak or you faint. These symptoms may represent a serious problem that is an emergency. Do not wait to see if the symptoms will go away. Get medical help right away. Call your local emergency services (911 in the [place] Do not drive yourself to the hospital. Summary ??? Coronavirus disease, also called COVID-19, is an infection of the lungs and airways (respiratory tract). It is unclear at this time if makes you more susceptible to COVID-19 and what effects it may have on unborn babies. ??? It is important to take precautions to protect yourself and your developing baby. This includes washing your hands often, avoiding touching your mouth, face, eyes, or nose, avoiding social gatherings and travel, and staying away from people who are sick. ??? If you think you have a COVID-19 infection, contact your health care provider right away. Tell your health care provider that you think you may have a COVID-19 infection. ??? If you have or may have COVID-19, your health care provider may recommend special precautions during your , labor and delivery, and after your baby is born. This information is not intended to replace advice given to you by your health care provider. Make sure you discuss any questions you have with your health care provider. Document Revised: 07/25/2020 Document Reviewed: 07/25/2020 [employer] Patient Education ?? 2020 [employer] 10 Things You Can Do to Manage Your COVID-19 Symptoms at Home If you have possible or confirmed COVID-19: 1. Stay home from work and school. And stay away from other public places. If you must go out, avoid using any kind of public transportation, ridesharing, or taxis. 2. Monitor your symptoms carefully. If your symptoms get worse, call your healthcare provider immediately. 3. Get rest and stay hydrated. 4. If you have a medical appointment, call the healthcare provider ahead of time and tell them that you have or may have COVID-19. 5. For medical emergencies, call 911 and notify the dispatch personnel that you have or may have COVID-19. 6. Cover your cough and sneezes with a tissue or use the inside of your elbow. 7. Wash your hands often with soap and water for at least 20 seconds or clean your hands with an alcohol-based hand editor in chief that contains at least 60% alcohol. 8. As much as possible, stay in a specific room and away from other people in your home. Also, you should use a separate bathroom, if available. If you need to be around other people in or outside of the home, wear a mask. 9. Avoid sharing personal items with other people in your household, like dishes, towels, and bedding. 10. Clean all surfaces that are touched often, like counters, tabletops, and doorknobs. Use household cleaning sprays or wipes according to the label instructions. cdc.gov/coronavirus 02/06/2020 This information is not intended to replace advice given to you by your health care provider. Make sure you discuss any questions you have with your health care provider. Document Revised: 07/10/2020 Document Reviewed: 07/10/2020 Elsevier Patient Education ?? 2020 [employer] Emergency Awareness and Preventative Care STROKE is an EMERGENCY Every Minute Counts Act FAST and Check for these signs: FACE Does the face look uneven? ARM Does one arm drift down? SPEECH Does their speech sound strange? TIME Call at any sign of stroke Stroke Risk Factors Atrial Fibrillation (irregular heartbeat) Diabetes Family history of stroke Heart Disease Heavy alcohol use High Blood Pressure High Cholesterol Physical inactivity and obesity Smoking Cigarette Smoking The facts are clear, cigarette smoking will shorten your life. Smoking can cause many illnesses along the way. As a healthcare provider, we recommend that you stop smoking. Assistance with quitting is available by contacting 9-809-IMXRWings IntellectNOW. This is a free resource providing counseling, support, and referral. Or you may contact your personal physician. National Suicide Prevention Lifeline: The National Suicide Prevention Lifeline is a national network of local crisis centers that provides free and confidential emotional support to people in suicidal crisis or emotional distress 24 hours a day, 7 days a week. Don't Wait! Stop a Heart Attack Before it Starts What is a heart attack? A heart attack is damage or to a part of the heart from severely decreased or lack of blood flow to the heart. Over time, arteries can become narrow from the buildup of fat and cholesterol, which is called plaque. The plaque can rupture causing a blood clot to form. When the blood clot forms, the artery can become severely narrowed or completely blocked, causing a heart attack. Heart attack is the leading cause of in the [place]. 85% of muscle damage occurs within the first 2 hours. Delay in the recognition of heart attack symptoms increases the chances of . Know the early symptoms of a heart attack: Nausea Feeling of fullness in chest Jaw Pain Pain that travels down one or both arms Fatigue/being tired Anxiety Back Pain Chest pressure, squeezing, or discomfort Shortness of breath Sweating, or a cold sweat Feeling of impending doom There are unusual signs of a heart attack, too! Women, the elderly, and diabetics may present with atypical symptoms: Fainting/dizziness Weakness Confusion Risk Factors for a Heart Attack Some heart disease risk factors, such as age and family history, cannot be changed. Others, like smoking and lack of exercise, can be changed. Smoking High Cholesterol High Blood Pressure Family History Obesity Age Gender (Males are at higher risk) Lack of Exercise Diabetes Diet Stress Excessive Alcohol Intake If you or someone you know is experiencing the signs and symptoms of a heart attack, DON???T DELAY. Call immediately and seek help. If someone collapses, perform CPR! Do not attempt to drive if you are having symptoms of heart attack. Hands-Only CPR Why Hands-Only CPR? Hands-Only CPR has been shown to be as effective as conventional CPR for cardiac arrests that occur outside of a hospital. Survival depends on immediately receiving CPR from someone nearby. How do you perform Hands-Only CPR? There are two easy steps: Call if you see a teen or adult collapse Push hard and fast in the center of the chest at a beat of 100 beats per minute. Save a life! 4 WAYS TO GET AHEAD OF SEPSIS SEPSIS is a MEDICAL EMERGENCY. Time matters! Infections put you and your family at risk for a life-threatening condition called sepsis. Sepsis is the body's extreme response to an infection. It is life-threatening, and without timely treatment, sepsis can rapidly lead to tissue damage, organ failure, and . Sepsis happens when an infection you already have-in your skin, lungs, urinary tract or somewhere else-triggers a chain reaction throughout your body. 1 PREVENT INFECTIONS Take good care of chronic conditions. Talk to your doctor about getting the recommended vaccines. 2 PRACTICE GOOD HYGIENE Wash your hands frequently. Keep cuts or open sores clean and covered until they are healed. 3 KNOW THE SYMPTOMS Confusion or disorientation Shortness of breath High heart rate Fever, shivering, or feeling very cold Extreme pain or discomfort Clammy or sweaty skin 4 ACT FAST Get medical care IMMEDIATELY if you suspect sepsis or if you have an infection that is not getting better or is getting worse. To learn more about sepsis and how to prevent infections, visit www.cdc.gov/sepsis. The examination and treatment you have received in the Emergency Department has been done to provide an appropriate evaluation and stabilizing treatment on an emergency basis only. Given the limited resources, it is not meant to be a substitute for complete medical care. The follow-up doctor you named will receive a copy of your records and all test reports. IT IS IMPORTANT THAT YOU SCHEDULE A FOLLOW-UP APPOINTMENT AND ARE RE-EVALUATED. You should report any new complaints, symptoms, or remaining problems at that time. IT IS IMPOSSIBLE FOR THE EMERGENCY DEPARTMENT TO RECOGNIZE AND TREAT ALL ELEMENTS OF INJURY OR ILLNESS IN A SINGLE VISIT. If you have been referred to a specialist physician, it means that we believe you may have a condition that requires the expertise of a specialist. These physicians work in partnership with the hospital and have agreed to see referred patients in their office for further evaluation. KEEP IN MIND THAT THE SPECIALIST HAS HIS/HER OWN OFFICE POLICIES WHICH MAY REQUIRE PROPER INSURANCE OR PAYMENT UP FRONT BEFORE THE SPECIALIST WILL SEE YOU. It is your responsibility to call the specialist physician to make an appointment. We do not have the ability to refer patients to specialists/physicians that work with specific insurance companies. Please be advised that all financial charges or billing practices are determined by that practice, not the hospital. If your insurance company requires that you see a specialist from their approved list, it is your responsibility to contact your insurance company to make those arrangements. It is also your responsibility to follow any other requirements of your insurance company necessary to obtain coverage for claims submitted. We will bill your insurance; however, you are responsible today for any co-pay amounts. You will receive a separate bill for any services you may have received including: emergency, radiology, or pathology physicians. Patient Name:LIBERTAD DE LEON I have received this information and was given the opportunity to ask questions. Patient/Boilers Inspector Name: Patient/Boilers Inspector Signature: Relationship to Patient: Clinician/Hospital Boilers Inspector Signature: Please Provide a Telephone Number Where You Can Be Reached: Is it Permissible To Leave a Message? Date: documented in this encounter Plan of Treatment Not on file documented as of this encounter Visit Diagnoses Not on filedocumented in this encounter
--- OUTSIDE RECORDS SUMMARY | 2025-01-11 13:25 | XMS_ITS | Encounter Summary ---
Author Organization [facility] Address [address] [place] [address] Care Team Providers Care Trim Mounter Name Role Phone Unavailable Primary Care Provider Unavailabl e Encounter Details Date Type Department Care Team (Late st Contact Info) Description 04/10/2021 Transcribed Document [facility] [address] [place] [address] Herbie Méndez MD [address] [place] [address] Dept. [place] [address] Social History Tobacco Use Types Packs/Day Years Used Date Smoking Tobacco: Never Assessed Comments Unknown Sex and Gender Information Value Date Recorded Sex Assigned at Female 02/02/2022 8:54 PM CDT Legal Sex Female 8:54 PM CDT Gender Identity Female 02/02/2022 8:54 PM CDT Sexual Orientation Not on file documented as of this encounter Miscellaneous Notes * Cerner Conversion Note - Herbie Méndez MD - 04/10/2021 6:53 AM EDT Patient: LIBERTAD DE LEON Age: 20 years Sex: Female : 2000 Associated Diagnoses: Medical screening exam; ; COVID-19 Author: HERBIE MÉNDEZ MD-EMR History of Present Illness The patient presents with Here for consideration for monoclonal antibody therapy for covid. She reports 3-4 days covid symptoms.. The course/duration of symptoms is constant. The character of symptoms is pain. The degree at onset was moderate. The degree at present is moderate. Risk factors consist of none. Therapy today: none. Review of Systems Additional review of systems information: All other systems reviewed and otherwise negative. Health Status Allergies: Allergic Reactions (Selected) No Known Medication Allergies. Past Medical/ Family/ Social History Medical history Reviewed as documented in chart. Surgical history: No active procedure history items have been selected or recorded.. Family history: No family history items have been selected or recorded.. Social history: Social & Psychosocial Habits Alcohol 04/10/2021 Alcohol Use History, Social Habits No Alcohol Use in Last Twelve Months No Substance Abuse 04/10/2021 Recreational Drug Use History No Recreational Drug Use Last 12 Months No Tobacco 04/10/2021 Smoking Status Never (less than 100 in l , Reviewed as documented in chart. Problem list: Active Problems (1) Disease caused by 2019 novel coronavirus , per nurse's notes. Physical Examination General: Alert. Head: Atraumatic. Neck: Trachea midline. Eye: Normal conjunctiva. Ears, nose, mouth and throat: Oral mucosa moist. Cardiovascular: Normal peripheral perfusion. Respiratory: Respirations are non-labored. Chest wall: No tenderness. Back: Nontender. Musculoskeletal: Normal ROM. Gastrointestinal: Soft. Neurological: No focal neurological deficit observed. Lymphatics: No lymphadenopathy. Psychiatric: Cooperative. Medical Decision Making Rationale: I called and spoke to Ob, Dr Lopez, no recomendation of first trimester monoclonal ab treatment. I called [facility], Dr Hogan maternal medicine, Dr Hogan recommends to me not to give the regen cov monoclonal antibody., Dr Cosme, covering for [facility] patients, reviewed [facility] and high risk protocol recomending MAB for patients in the inclusion criteria. I discussed this with Ms De Leon, and offered her the choice, with information that this therapy was not studied in and risk of side effects or effects, and she has reviewed the eua fda infromation, she request the MAB as her choice with informed consent.. Documents reviewed: Emergency department nurses' notes, emergency department records. Orders Place New Orders Pharmacy: casirivimab-imdevimab 600 mg-600 mg/10 mL injectable solution (Order): 1,200 mg, IV Piggyback, 1-Time . Notes: spoke to multiple Ob salesperson new cars, with recomendations, patient remains stable, US update shows FHTx2 180s, IVF admin in ED as well as the MAB which the patient requested as above.. Impression and Plan Diagnosis Medical screening exam - Reason For Visit, Emergency medicine, Medical - Discharge, Emergency medicine, Medical COVID-19 - Discharge, Emergency medicine, Medical Plan Patient was given the following educational materials: 10 Things You Can Do to Manage Your COVID-19 Symptoms at Home - CDC, and COVID-19. Follow up with: ; For a clinic referral service , just dial: [phone] (WELL) Our experts will provide you with a physician name and their contact information. Within 2 to 3 days; FAUSTO COSME Within 2 to 3 days Ob, can call to see if they are taking new high risk patients for follow up, or High Risk [phone]. Counseled: Patient. documented in this encounter Plan of Treatment Not on file documented as of this encounter Visit Diagnoses Not on filedocumented in this encounter
--- OUTSIDE RECORDS SUMMARY | 2025-01-11 13:25 | XMS_ITS | Encounter Summary ---
Author Organization [facility] Address [address] [place] [address] Care Team Providers Care Head Waiter/Waitress Banquet Name Role Phone Unavailable Primary Care Provider Unavailabl e Encounter Details Date Type Department Care Team (Late st Contact Info) Description 04/10/2021 Transcribed Document [facility] [place] Family Medicine [address] [place] [address] ProviderJuan Carlos MD [address] [place], [place] [id number] Social History Tobacco Use Types Packs/Day Years [...] Historical ProviderMD - 04/10/2021 5:27 AM CDT [place] Suicide Severity Rating Scale (C-SSRS) Entered On: 04/10/2021 6:47 EDT Performed On: 04/10/2021 6:46 EDT by Nasreen Aldridge RN-PATIENT CARE BEDSIDE NON-EXEMPT [place] Suicide Severity Rating Scale (C-SSRS) CSSRS Past Month Wish to be : No CSSRS Past Month Suicidal Thoughts : No CSSRS Lifetime Suicide Behavior : No Suicide Severity Rating Score : 0 Suicide Severity Rating : No Additional Care Required at this time Nasreen Aldridge RN-PATIENT CARE BEDSIDE NON-EXEMPT - 04/10/2021 6:46 EDT documented in this encounter Plan of Treatment Not on file documented as of this encounter Visit Diagnoses Not on filedocumented in this encounter
--- OUTSIDE RECORDS SUMMARY | 2025-01-11 13:25 | XMS_ITS | Encounter Summary ---
Author Organization [facility] Address [address] [place] [address] Care Team Providers Care Float Builder Name Role Phone Unavailable Primary Care Provider Unavailabl e Encounter Details Date Type Department Care Team (Late st Contact Info) Description 04/07/2021 Transcribed Document [facility] [place] Family Medicine [address] [place] [address] ProviderJuan Carlos MD [address] [place] [address] Social History Tobacco Use Types [...] Conversion Note - Historical ProviderMD - 04/07/2021 7:59 PM CDT [place] Suicide Severity Rating Scale (C-SSRS) Entered On: 04/08/2021 0:17 EDT Performed On: 04/08/2021 0:16 EDT by MARIANA ESTEVES RN [place] Suicide Severity Rating Scale (C-SSRS) CSSRS Past Month Wish to be : Unable to obtain CSSRS Past Month Suicidal Thoughts : Unable to obtain CSSRS Lifetime Suicide Behavior : Unable to obtain Suicide Severity Rating Score : -105 Suicide Severity Rating : Reassessment required MARIANA ESTEVES RN - 04/08/2021 0:16 EDT documented in this encounter Plan of Treatment Not on file documented as of this encounter Visit Diagnoses Not on filedocumented in this encounter
--- OUTSIDE RECORDS SUMMARY | 2025-01-11 13:25 | XMS_ITS | Encounter Summary ---
Author Organization [employer] [facility] Address [address] [place] [address] Care Team Providers Care Scrum Coach Name Role Phone Unavailable Primary Care Provider Unavailabl e Encounter Details Date Type Department Care Team (Late st Contact Info) Description 04/10/2021 Transcribed Document [facility] [place] Family Medicine [facility] [place] [address] ProviderJuan Carlos [place] [address] Social History Tobacco Use Types [...] Conversion Note - Historical ProviderMD - 04/10/2021 8:46 AM CDT ED Discharge Entered On: 04/10/2021 8:46 EDT Performed On: 04/10/2021 8:46 EDT by Lacey Chau RN Discharge Process Patient Disposition : Discharge Personal Belongings With Patient : Yes Patient Education Completed : No Teaching Evaluation : Verbalizes understanding IV Discontinued : Yes Nursing Documentation Completed : No Lacey Chau RN - 04/10/2021 8:46 EDT ED Discharge Discharge To : Home with ambulatory/outpatient follow-up Accompanied By : Unaccompanied Discharge Instructions Reviewed With, Opportunity For Questions Given : Patient Prescriptions Given to Patient : Yes Lacey Chau RN - 04/10/2021 8:46 EDT documented in this encounter Plan of Treatment Not on file documented as of this encounter Visit Diagnoses Not on filedocumented in this encounter
--- OUTSIDE RECORDS SUMMARY | 2025-01-11 13:25 | XMS_ITS | Encounter Summary ---
Author Organization [email or web address] Address [address] [place] [address] Care Team Providers Care Assembler Movement Name Role Phone Unavailable Primary Care Provider Unavailabl e Encounter Details Date Type Department Care Team (Late st Contact Info) Description 04/10/2021 Transcribed Document [facility] [place] Family Medicine [facility] [place] [address] ProviderJuan Carlos MD [address] [place] [address] Social History Tobacco Use Types [...] * Cerner Conversion Note - Juan Carlos Cavazos MD - 04/10/2021 8:[place] [address] LIBERTAD DE LEON :2000 Visit Time:04/10/2021 Your [...] High Risk [phone] Where: [address] [place] [id number] [facility] (1) Follow Up with For a clinic referral service , just dial: [phone] (WELL) Our experts will provide you with [...] water are not available, use alcohol-based hand employee benefits attorney. ??? Avoid touching your mouth, face, eyes, [...] pump parts after expressing milk. Follow the process engineering technician's instructions to clean and disinfect all pump [...] (CDC): www.cdc.gov/coronavirus/2019-ncov/ ??? World Health Organization (WHO): www.who.int/news-room/q-a-detail/r-d-dm-loucs-81-zzkrhrpxf-ufrcyxenhl-lpj-hhvm stfeeding ??? [employer] ([employer]): www.acog.org/patient-resources/faqs//vsspyfjyrmh-vciievkao-hfd-breast feeding Questions to ask your health care [...] provider. Document Revised: 07/25/2020 Document Reviewed: 07/25/2020 [employer] Patient Education ?? 2020 [employer] 10 Things You Can Do to [...] clean your hands with an alcohol-based hand employee benefits attorney that contains at least 60% alcohol. 8. [...] Reviewed: 07/10/2020 [employer] Patient Education ?? 2020 [employer] Emergency Awareness and Preventative Care STROKE [...] Assistance with quitting is available by contacting 7-110-BDHDOrthoFiNOW. This is a free resource providing counseling, [...] was given the opportunity to ask questions. Patient/Home Economist Consumer Service Name: Patient/Home Economist Consumer Service Signature: Relationship to Patient: Clinician/Hospital Home Economist Consumer Service Signature: Please Provide a Telephone Number Where You Can Be Reached: Is it Permissible To Leave a Message? Date: documented in this encounter Plan of Treatment Not on file documented as of this encounter Visit Diagnoses Not on filedocumented in this encounter
--- OUTSIDE RECORDS SUMMARY | 2025-01-11 13:25 | XMS_ITS | Encounter Summary ---
Author Organization [employer] Address [address] [place] [address] Care Team Providers Care Billing Machine Operator Name Role Phone Unavailable Primary Care Provider Unavailabl e Encounter Details Date Type Department Care Team (Late st Contact Info) Description 04/08/2021 Transcribed Document [facility] [place] [facility] [place] [address] ProviderJuan Carlos MD [address] [place] [address] Social History Tobacco Use Types [...] Conversion Note - Juan Carlos ProviderMD - 04/08/2021 12:05 [place] [address] LIBERTAD DE LEONNE :2000 Visit Time:04/07/2021 Your Visit Summary Your Care Team Primary Provider: AMAURY CASTELLANOS Secondary Provider: Your Diagnosis Cough COVID-19 General medical Twin in first trimester Medical Information You may obtain a copy [...] do next Follow-Up Appointments Follow Up with Follow up with primary care provider When Within 2 to 3 days Comments Call for follow up appointment. Return to the ER for any new or worsening symptoms as discussed, especially difficulty breathing or low O2 sat below 90%. Drink plenty of fluids and rest. You may take Tylenol as needed. Follow-up with your TUBE DRAWING SUPERVISOR. Allergies No Known Medication Allergies Immunizations This Visit No Immunizations Found Medications The home medications listed are only as [...] This Visit (last charted value for your 04/07/2021 visit) Microbiology 04/07/2021 9:25 PM SARS-CoV-2 (COVID19 PCR): Positive Education Materials COVID-19: What Your Test Results Mean If you test positive for COVID-19 Take steps to help prevent the spread of COVID-19 Stay home. Do not leave your home, except to get medical care. Do not visit public areas. Get rest and stay hydrated. Take quxn-hya-mlcynfl medicines, such as acetaminophen, to help you feel better. Stay in touch with your doctor. Separate yourself from other people. As much as possible, stay in a specific room and away from other people and pets in your home. If you test negative for COVID-19 ??? You probably were not infected at the time your sample was collected. ??? However, that does not mean you will not get sick. ??? It is possible that you were very early in your infection when your sample was collected and that you could test positive later. A negative test result does not mean you won't get sick later. cdc.gov/coronavirus 01/05/2020 This information is not intended to replace advice given to you by your health care provider. Make sure you discuss any questions you have with your health care provider. Document Revised: 07/10/2020 Document Reviewed: 07/10/2020 [employer] Patient Education ?? 2020 [employer]. COVID-19: How to Protect Yourself and Others Know how it spreads ??? There is currently no vaccine to prevent coronavirus disease 2019 (COVID-19). ??? The best way to prevent illness is to avoid being exposed to this virus. ??? The virus is thought to spread mainly from dwpfpm-gu-shxfhg. ? Between people who are in close contact with one another (within about 6 feet). ? Through respiratory droplets produced when an infected person coughs, sneezes or talks. ? These droplets can land in the mouths or noses of people who are nearby or possibly be inhaled into the lungs. ? COVID-19 may be spread by people who are not showing symptoms. Everyone should Clean your hands often ??? Wash your hands often with soap and water for at least 20 seconds especially after you have been in a public place, or after blowing your nose, coughing, or sneezing. ??? If soap and water are not readily available, use a hand supervisor sintering plant that contains at least 60% alcohol. Cover all surfaces of your hands and rub them together until they feel dry. ??? Avoid touching your eyes, nose, and mouth with unwashed hands. Avoid close contact ??? Limit contact with others as much as possible. ??? Avoid close contact with people who are sick. ??? Put distance between yourself and other people. ? Remember that some people without symptoms may be able to spread virus. ? This is especially important for people who are at higher risk of getting very sick.www.cdc.gov/coronavirus/2019-ncov/utoq-utwxx-qzmrylmswfb/eoluie-mq-bdydgb -risk.html Cover your mouth and nose with a mask when around others ??? You could spread COVID-19 to others even if you do not feel sick. ??? Everyone should wear a mask in public settings and when around people not living in their household, especially when social distancing is difficult to maintain. ? Masks should not be placed on young children under age 2, anyone who has trouble breathing, or is unconscious, incapacitated or otherwise unable to remove the mask without assistance. ??? The mask is meant to protect other people in case you are infected. ??? Do NOT use a facemask meant for a healthcare worker. ??? Continue to keep about 6 feet between yourself and others. The mask is not a substitute for social distancing. Cover coughs and sneezes ??? Always cover your mouth and nose with a tissue when you cough or sneeze or use the inside of your elbow. ??? Throw used tissues in the trash. ??? Immediately wash your hands with soap and water for at least 20 seconds. If soap and water are not readily available, clean your hands with a hand supervisor sintering plant that contains at least 60% alcohol. Clean and disinfect ??? Clean AND disinfect frequently touched surfaces daily. This includes tables, doorknobs, light switches, countertops, handles, desks, phones, keyboards, toilets, faucets, and sinks. www.cdc.gov/coronavirus/2019-ncov/fswdnxr-axbcrvk-espt/nmifjswpfece-hlnl-qhzi. html ??? If surfaces are dirty, clean them: Use detergent or soap and water prior to disinfection. ??? Then, use a household disinfectant. You can see a list of EPA-registered household disinfectants here. cdc.gov/coronavirus 04/09/2020 This information is not intended to replace advice given to you by your health care provider. Make sure you discuss any questions you have with your health care provider. Document Revised: 04/17/2020 Document Reviewed: 02/14/2020 [employer] Patient Education ?? 2020 [employer] COVID-19 Frequently Asked Questions COVID-19 (coronavirus disease) is an infection that is caused by a virus called severe acute respiratory syndrome coronavirus 2 (SARS-CoV-2). Coronaviruses are a large family of viruses. Some of these viruses cause illness in people, and others cause illness in animals like camels, cats, and bats. In some cases, the viruses that cause illness in animals can spread to humans. Where did the coronavirus come from? In July 2019, [employer] told the World Health Organization (WHO) about several cases of lung disease (human respiratory illness). These cases were linked to an open seafood and livestock market in the [facility]. The link to the seafood and livestock market suggests that the virus may have spread from animals to humans. However, since that first outbreak in July 2019, the virus has also been shown to spread from person to person. What is the name of the disease and the virus? Disease name Early on, this disease was called novel coronavirus. This is because scientists determined that the disease was caused by a new (novel) respiratory virus. The World Health Organization (WHO) has now named the disease COVID-19, or coronavirus disease. Virus name The virus that causes the disease is called severe acute respiratory syndrome coronavirus 2 (SARS-CoV-2). More information on disease and virus naming ??? World Health Organization: www.who.int/emergencies/diseases/eolzv-spbkpjbwypc-7783/technical-guidance Who is at risk for complications from coronavirus disease? Some people may be at higher risk for complications from coronavirus disease. This includes older adults and people who have chronic diseases, such as heart disease, diabetes, and lung disease. If you are at higher risk for complications, take these extra precautions: ??? Stay home as much as possible. ??? Avoid social gatherings and travel. ??? Avoid close contact with others. Stay at least 6 ft (2 m) away from others, if possible. ??? Wash your hands often with soap and water for at least 20 seconds. ??? Avoid touching your face, mouth, nose, or eyes. ??? Keep supplies on hand at home, such as food, medicine, and cleaning supplies. ??? If you must go out in public, wear a cloth face covering or face mask. Make sure your mask covers your nose and mouth. How does coronavirus disease spread? The virus that causes coronavirus disease spreads easily from person to person (is contagious). You may catch the virus by: ??? Breathing in droplets from an infected person. Droplets can be spread by a person breathing, speaking, singing, coughing, or sneezing. ??? Touching something, like a table or a doorknob, that was exposed to the virus (contaminated) and then touching your mouth, nose, or eyes. Can I get the virus from touching surfaces or objects? There is still a lot that we do not know about the virus that causes coronavirus disease. Scientists are basing a lot of information on what they know about similar viruses, such as: ??? Viruses cannot generally survive on surfaces for long. They need a human body (host) to survive. ??? It is more likely that the virus is spread by close contact with people who are sick (direct contact), such as through: ? Shaking hands or hugging. ? Breathing in respiratory droplets that travel through the air. Droplets can be spread by a person breathing, speaking, singing, coughing, or sneezing. ??? It is less likely that the virus is spread when a person touches a surface or object that has the virus on it (indirect contact). The virus may be able to enter the body if the person touches a surface or object and then touches his or her face, eyes, nose, or mouth. Can a person spread the virus without having symptoms of the disease? It may be possible for the virus to spread before a person has symptoms of the disease, but this is most likely not the main way the virus is spreading. It is more likely for the virus to spread by being in close contact with people who are sick and by breathing in the respiratory droplets spread when a person breathes, speaks, sings, coughs, or sneezes. What are the symptoms of coronavirus disease? Symptoms vary from person to person and can range from mild to severe. Symptoms may include: ??? Fever or chills. ??? Cough. ??? Difficulty breathing or feeling short of breath. ??? Feeling tired. ??? Headaches, body aches, or muscle aches. ??? Runny or stuffy (congested) nose. ??? Sore throat. ??? New loss of taste or smell. ??? Nausea, vomiting, or diarrhea. These symptoms can appear anywhere from 2 to 14 days after you have been exposed to the virus. Some people may not have any symptoms. If you develop symptoms, call your health care provider. People with severe symptoms may need hospital care. Should I be tested for this virus? Your health care provider will decide whether to test you based on your symptoms, history of exposure, and your risk factors. How does a health care provider test for this virus? Health care providers will collect samples to send for testing. Samples may include: ??? Taking a swab of fluid from the back of your nose and throat, from your nose, or from your throat. ??? Testing a sample of saliva from your mouth. ??? Taking fluid from the lungs by having you cough up mucus (sputum) into a sterile cup. ??? Taking a blood sample. Is there a treatment or vaccine for this virus? Some medicines have been approved for the treatment of people with severe cases of COVID-19 who are being treated in the hospital. There are no medicines that have been approved for treatment of people with mild cases of COVID-19 who do not need hospitalization. Certain medicines used to treat other diseases are being used on a trial basis to see if there are more options for the treatment of COVID-19. If you develop symptoms, call your health care provider. People with severe symptoms may need hospital care. Some vaccines to prevent the virus that causes COVID-19 have been authorized for emergency use. This means that the vaccines are still being tested, but they have been deemed safe for use and have been effective in preventing COVID-19 in trials. These vaccines may not be available for everyone right away. The vaccines will likely be given to certain groups at higher risk first until there is enough supply available for everyone. Until the vaccines are available for everyone, it is important to continue to take steps to protect yourself and others from this virus. What can I do to protect myself and my family from this virus? You can protect yourself and your family by taking the same actions that you would take to prevent the spread of other viruses. Take the following actions: ??? Wash your hands often with soap and water for at least 20 seconds. If soap and water are not available, use alcohol-based hand supervisor sintering plant. ??? Avoid touching your face, mouth, nose, or eyes. ??? Cough or sneeze into a tissue, sleeve, or elbow. Do not cough or sneeze into your hand or the air. ? If you cough or sneeze into a tissue, throw it away immediately and wash your hands. ??? Disinfect objects and surfaces that are frequently touched every day. ??? Stay away from people who are sick. ??? Avoid going out in public. Follow guidance from your state and local health authorities. ??? Avoid crowded indoor spaces. Stay at least 6 ft (2 m) away from others. ??? If you must go out in public, wear a cloth face covering or face mask. Make sure your mask covers your nose and mouth. ??? Stay home if you are sick, except to get medical care. Call your health care provider before you get medical care. Your health care provider will tell you how long to stay home. ??? Make sure your vaccines are up to date. Ask your health care provider what vaccines you need. What should I do if I need to travel? Follow travel recommendations from your local health authority, the CDC, and WHO. Travel information and advice ??? Centers for Disease Control and Prevention (CDC): www.cdc.gov/coronavirus/2019-ncov/travelers ??? World Health Organization (WHO): www.who.int/emergencies/diseases/uluwn-faczknssalo-2313/travel-advice What should I do if I am sick? General instructions to stop the spread of infection ??? Wash your hands often with soap and water for at least 20 seconds. If soap and water are not available, use alcohol-based hand supervisor sintering plant. ??? Cough or sneeze into a tissue, sleeve, or elbow. Do not cough or sneeze into your hand or the air. ??? If you cough or sneeze into a tissue, throw it away immediately and wash your hands. ??? Stay home unless you must get medical care. Call your health care provider or local health authority before you get medical care. ??? Avoid public areas. Do not take public transportation, if possible. ??? If you can, wear a mask if you must go out of the house or if you are in close contact with someone who is not sick. Make sure your mask covers your nose and mouth. Keep your home clean ??? Disinfect objects and surfaces that are frequently touched every day. This may include: ? Counters and tables. ? Doorknobs and light switches. ? Sinks and faucets. ? Electronics such as phones, remote controls, keyboards, computers, and tablets. ??? Wash dishes in hot, soapy water or use a book binder. Air-dry your dishes. ??? Wash laundry in hot water. Prevent infecting other household members ??? Let healthy household members care for children and pets, if possible. If you have to care for children or pets, wash your hands often and wear a mask. ??? If possible, sleep in a different bedroom or bed, separate from others. Use a different bathroom. ??? Do not share personal items, such as razors, toothbrushes, deodorant, moses, brushes, towels, and washcloths. Where to find more information Centers for Disease Control and Prevention (CDC) ??? Information and news updates: www.cdc.gov/coronavirus/2019-ncov World Health Organization (WHO) ??? Information and news updates: www.who.int/emergencies/diseases/yadgp-ijhsngvxtjg-2074 ??? Coronavirus health topic: www.who.int/health-topics/coronavirus ??? Questions and answers on COVID-19: www.who.int/news-room/q-a-detail/i-m-ekpjgchkspnju ??? Global tracker: who.[employer] [place] [employer] (AAP) ??? Information for families: www.healthychildren.org/Cypriot/health-issues/conditions/chest-lungs/Pages/201 3-Meixh-Vjoztbqplim.aspx The coronavirus situation is changing rapidly. Check your local health authority website or the CDC and WHO websites for updates and news. When should I contact a health care provider? Contact your health care provider if you have symptoms of an infection, such as fever or cough, and you: ? Have been near anyone who is known to have coronavirus disease. ? Have come into contact with a person who is suspected to have coronavirus disease. ? Have traveled to an area where there is an outbreak of COVID-19. When should I get emergency medical care? Get help right away by calling your local emergency services (911 in the [place] if you have: ? Trouble breathing. ? Pain or pressure in your chest. ? Confusion. ? Blue-tinged lips and fingernails. ? Difficulty waking from sleep. ? Symptoms that get worse. Let the emergency medical personnel know if you think you have coronavirus disease. Summary ??? A new respiratory virus is spreading from person to person and causing COVID-19 (coronavirus disease). ??? The virus that causes COVID-19 appears to spread easily. It spreads from one person to another through droplets from breathing, speaking, singing, coughing, or sneezing. ??? Older adults and those with chronic diseases are at higher risk of disease. If you are at higher risk for complications, take extra precautions. ??? Some vaccines for the virus that causes COVID-19 have been authorized for emergency use. This means that the vaccines are still being tested, but they have been deemed safe for use and have been effective in preventing COVID-19 in trials. ??? You can protect yourself and your family by washing your hands often, avoiding touching your face, and covering your coughs and sneezes. This information is not intended to replace advice given to you by your health care provider. Make sure you discuss any questions you have with your health care provider. Document Revised: 07/22/2020 Document Reviewed: 07/22/2020 [employer] Patient Education ?? 2020 [employer] Emergency Awareness and Preventative Care STROKE [...] Assistance with quitting is available by contacting 6-153-RQUENOW. This is a free resource providing counseling, [...] CPR? There are two easy steps: Call 9-1-1 if you see a teen or adult [...] was given the opportunity to ask questions. Patient/Social Work Associate Name: Patient/Social Work Associate Signature: Relationship to Patient: Clinician/Hospital Social Work Associate Signature: Please Provide a Telephone Number Where You Can Be Reached: Is it Permissible To Leave a Message? Date: documented in this encounter Plan of Treatment Not on file documented as of this encounter Visit Diagnoses Not on filedocumented in this encounter
--- OUTSIDE RECORDS SUMMARY | 2025-01-11 13:25 | XMS_ITS | Encounter Summary ---
Author Organization [employer] Address [address] [place] [address] Care Team Providers Care Dinner Cook Name Role Phone Unavailable Primary Care Provider Unavailabl e Encounter Details Date Type Department Care Team (Late st Contact Info) Description 04/11/2021 Transcribed Document [facility] [place] [facility] [place] [address] ProviderJuan Carlos MD [facility] [place] [address] Social History Tobacco Use Types [...] Historical ProviderMD - 04/11/2021 9:48 AM CDT ED Triage Entered On: 04/11/2021 10:13 EDT Performed On: 04/11/2021 10:10 EDT by Harleen Brown RN ED Triage Across the Room Chief Complaint : Pt C/O vaginal spotting starting yesterday, had anitibody infusion yesterday. Approx 9 weeks gestation, Triage Date/Time : 04/11/2021 10:10 EDT Harleen Brown RN - 04/11/2021 10:10 EDT DCP GENERIC CODE Tracking Acuity : 3 - Urgent Tracking Group : [facility] ED [facility] Harleen Brown RN - 04/11/2021 10:10 EDT Mode of Arrival : Ambulatory Transported to ED by : Private vehicle To Room Via : Ambulate Accompanied By : Unaccompanied ED Vital Signs : Document Height & Weight : Document ED Allergies : Document ED Reason for Visit : Document Harleen Brown RN - 04/11/2021 10:10 EDT Infectious Disease History Has the patient ever been tested for COVID-19? : Yes, Patient stated results Positive Date of COVID-19 test known? : Yes Date of COVID-19 Test : 04/07/2021 EDT Does patient have symptoms of COVID-19? : No COVID19 Screening : No Experiencing Infectious Disease Symptoms : No symptoms Physical contact outside [place] in the last 30 days : No Infectious Disease History : None Tuberculosis Symptoms : None Harleen Brown RN - 04/11/2021 10:10 EDT Vital Signs ED Temperature Source : Tympanic Temperature Mode : Fahrenheit Temperature, Fahrenheit : 98.6 Deg F Clinical Temperature, C : 37 Deg C Oxygen Therapy Mode : Room air Peripheral Pulse Rate : 92 bpm Respiratory Rate : 16 Breaths/Min Systolic Blood Pressure : 111 mmHg Diastolic Blood Pressure : 76 mmHg Oxygen Saturation : 100 % Harleen Brown RN - 04/11/2021 10:10 EDT Allergy (As Of: 04/11/2021 10:13:01 EDT) Allergies (Active) No Known Medication Allergies Estimated Onset Date: Unspecified ; Created By: MARIANA ESTEVES RN; Reaction Status: Active ; Category: Drug ; Substance: No Known Medication Allergies ; Type: Allergy ; Updated By: MARIANA ESTVEES RN; Reviewed Date: 04/11/2021 10:12 EDT Diagnosis Control ED (As Of: 04/11/2021 10:13:01 EDT) Problems(Active) Disease caused by 2019 novel coronavirus (SNOMED CT :[id number] ) Name of Problem: Disease caused by 2019 novel coronavirus ; Recorder: SYSTEM, SYSTEM; Confirmation: Confirmed ; Classification: Medical ; Code: [id number] ; Last Updated: 04/07/2021 22:55 EDT ; Life Cycle Date: 04/07/2021 ; Life Cycle Status: Active ; Vocabulary: SNOMED CT ; Comments: 04/07/2021 22:55 - SYSTEM, SYSTEM Problem added by a rule: [id number]. Diagnoses(Active) Vaginal bleeding Date: 04/11/2021 ; Diagnosis Type: Reason For Visit ; Confirmation: Complaint of ; Clinical Dx: Vaginal bleeding ; Classification: Medical ; Clinical Service: Non-Specified ; Code: PNED ; Probability: 0 ; Diagnosis Code: [id number] ED Height and Weight Height Source : Measured Height Entry Format : [place] Height, Feet : 5 ft(Converted to: 152 cm, 60 Inch) Height, Inches : 7 Inch(Converted to: 0 ft 7 Inch, 17.78 cm) Clinical Height : 170.18 cm Weight Source, ED : Standing scale Weight Entry Format : [place] Weight, Pounds : 128 lb Clinical Dosing Weight : 58.18 kg Body Surface Area (BSA) : 1.67 m2 Body Mass Index : 20.1 kg/m2 [place] Body Weight (IBW) : 61.16 kg Harleen Brown RN - 04/11/2021 10:10 EDT documented in this encounter Plan of Treatment Not on file documented as of this encounter Visit Diagnoses Not on filedocumented in this encounter
--- OUTSIDE RECORDS SUMMARY | 2025-01-11 13:25 | XMS_ITS | Encounter Summary ---
Author Organization [employer] Address [address] [place] [address] Care Team Providers Care Logistics Associate Name Role Phone Unavailable Primary Care Provider Unavailabl e Encounter Details Date Type Department Care Team (Late st Contact Info) Description 04/11/2021 Transcribed Document [facility] [place] Medicine [address] [place] [address] ProviderJuan Carlos MD [address] [place] [address] Social History Tobacco Use Types [...] Conversion Note - Historical ProviderMD - 04/11/2021 12:12 PM CDT Electronically signed by Chana [facility] Conversion Energy Consultant Cerner at 11/21/2022 11:35 PM CDT documented in this encounter Plan of Treatment Not on file documented as of this encounter Visit Diagnoses Not on filedocumented in this encounter
--- OUTSIDE RECORDS SUMMARY | 2025-01-11 13:25 | XMS_ITS | Referral Summary ---
Author Organization [email or web address] Address [address] [place] [address] Care Team Providers Care Corporate Law Specialist Name Role Phone Unavailable Primary Care Provider [...]
--- OUTSIDE RECORDS SUMMARY | 2025-01-11 13:25 | XMS_ITS | Encounter Summary ---
Author Organization [employer] Address [address] [place] [address] Care Team Providers Care Cancer Program Consultant Name Role Phone Unavailable Primary Care Provider Unavailabl e Encounter Details Date Type Department Care Team (Late st Contact Info) Description 04/10/2021 Transcribed Document [facility] [address] [place] [address] Herbie Srivastava MD [address] [place] [address] Dept. of Emergency Medicine [place] [phone] Social History Tobacco Use Types Packs/Day Years Used Date Smoking Tobacco: Never Assessed Comments Unknown Sex and Gender Information Value Date Recorded Sex Assigned at Female 02/02/2022 8:54 PM CDT Legal Sex Female 8:54 PM CDT Gender Identity Female 02/02/2022 8:54 PM CDT Sexual Orientation Not on file documented as of this encounter Miscellaneous Notes * Cerner Conversion Note - Herbie Srivastava MD - 04/10/2021 9:09 AM EDT Electronically signed by Chana [facility] Conversion Business Project Analyst Cerner at 11/21/2022 11:49 PM CDT documented in this encounter Plan of Treatment Not on file documented as of this encounter Visit Diagnoses Not on filedocumented in this encounter
--- OUTSIDE RECORDS SUMMARY | 2025-01-11 13:25 | XMS_ITS | Encounter Summary ---
Author Organization [employer] Address [address] [place] [address] Care Team Providers Care Clean Room Technician Name Role Phone Unavailable Primary Care Provider Unavailabl e Encounter Details Date Type Department Care Team (Late st Contact Info) Description 04/11/2021 Transcribed Document [facility] [place] [facility] [place] [address] ProviderJuan Carlos MD [address] [place] [address] Social History Tobacco Use Types [...] ProviderMD - 04/11/2021 9:48 AM CDT ED Assessment Entered On: 04/11/2021 12:05 EDT Performed On: 04/11/2021 12:04 EDT by Lacey Chau RN ED Quick Look Assessment Level of Consciousness : Alert, Awake Affect/Behavior : Appropriate, Calm, Cooperative Orientation : Oriented x 4 Skin Temperature : Warm Skin Description : Normal for ethnicity Lacey Chau RN - 04/11/2021 12:04 EDT ED General-Functional Assess Information Obtained From : Patient Preferred Communication Mode : Verbal Communication Barrier : None Primary Language : Malaysian Any Spiritual/Cultural Needs or Requests : No Currently in Unsafe Situation : No Lacey Chau RN - 04/11/2021 12:04 EDT Social Habits Smoking Status : Never (less than 100 in lifetime; none in last 30 days) Smokeless Tobacco Status : Never Desires Tobacco Cessation Calc : 0 Lacey Chau RN - 04/11/2021 12:04 EDT Social History (As Of: 04/11/2021 12:05:47 EDT) Tobacco: Never (less than 100 in lifetime) Smoking Status. (Last Updated: 04/10/2021 05:46:12 EDT by KIYA GUERRA, RAYMOND) Alcohol: Alcohol Use History No. Use in Last 12 Months: No. (Last Updated: 04/10/2021 05:46:15 EDT by KIYA GUERRA RN) Substance Abuse: Drug Use Hx: No. Use in Last 12 Months: No. (Last Updated: 04/10/2021 05:46:18 EDT by KIYA GUERRA RN) Genitourinary Assessment, ED Status : Confirmed positive : 1 Vaginal Discharge Color : Other: pt states to be spotting heavy Pelvic/Abdominal Pain : No Lacey Chau RN - 04/11/2021 12:04 EDT documented in this encounter Plan of Treatment Not on file documented as of this encounter Visit Diagnoses Not on filedocumented in this encounter
--- OUTSIDE RECORDS SUMMARY | 2025-01-11 13:25 | XMS_ITS | Encounter Summary ---
Author Organization [employer] Address [address] [place] [address] Care Team Providers Care Pewter Caster Name Role Phone Unavailable Primary Care Provider Unavailabl e Encounter Details Date Type Department Care Team (Late st Contact Info) Description 04/11/2021 Transcribed Document [facility] [place] [facility] [place] [address] ProviderJuan Carlos MD [address] [place] [address] Social History Tobacco Use Types [...] Conversion Note - Historical ProviderMD - 04/11/2021 11:40 AM CDT Patient: LIBERTAD DE LEON Age: 20 years Sex: Female : 2000 Associated Diagnoses: First trimester bleeding; Subchorionic hemorrhage; Threatened miscarriage Author: AMAURY CASTELLANOS PA Basic Information Time seen: Date & time 04/11/2021 11:40:00. History source: Patient. Arrival mode: Private vehicle. History limitation: None. Additional information: Chief Complaint from Nursing Triage Note : Chief Complaint 04/11/2021 10:10 EDT Chief Complaint Pt C/O vaginal spotting starting yesterday, had anitibody infusion yesterday. Approx 9 weeks gestation, . History of Present Illness Patient is a 20-year-old G1 9 weeks gestation who presents today with vaginal bleeding. Patient reports brownish-red vaginal spotting that is zinc skimmer than her menstrual period. This began yesterday and has continued today. She denies any abdominal pain or pelvic cramping. Also denies fever, nausea/vomiting, vaginal discharge. Patient tested positive for COVID-19 4 days ago and yesterday received the monoclonal antibody infusion. She currently follows with an ORTHOPEDIC SHOES SALESPERSON at [facility], however is in the process of transitioning her OB care to . Review of Systems Constitutional symptoms: Negative except as documented in HPI. Skin symptoms: Negative except as documented in HPI. Eye symptoms: Negative except as documented in HPI. ENMT symptoms: Negative except as documented in HPI. Respiratory symptoms: Negative except as documented in HPI. Cardiovascular symptoms: Negative except as documented in HPI. Gastrointestinal symptoms: Negative except as documented in HPI. Genitourinary symptoms Musculoskeletal symptoms: Negative except as documented in HPI. Neurologic symptoms: Negative except as documented in HPI. Psychiatric symptoms: Negative except as documented in HPI. Health Status Allergies: Allergies reviewed.. Medications: Medications reviewed.. Menstrual history: Per nurse's notes. Past Medical/ Family/ Social History Medical history Reviewed as documented in chart. Surgical history: Procedure history reviewed.. Family history: Not significant. Social history: Social & Psychosocial Habits Alcohol 04/10/2021 Alcohol Use History, Social Habits No Alcohol Use in Last Twelve Months No Substance Abuse 04/10/2021 Recreational Drug Use History No Recreational Drug Use Last 12 Months No Tobacco 04/10/2021 Smoking Status Never (less than 100 in l . Problem list: Active Problems (1) Disease caused by 2019 novel coronavirus . Physical Examination Vital Signs Vital Measurements 04/11/2021 10:10 EDT Systolic Blood Pressure 111 mmHg Diastolic Blood Pressure 76 mmHg Temperature Source Tympanic Temperature Mode Fahrenheit Temperature, Fahrenheit 98.6 Deg F Clinical Temperature, C 37 Deg C Peripheral Pulse Rate 92 bpm Respiratory Rate 16 Breaths/Min Oxygen Saturation 100 % Oxygen Therapy Mode Room air 04/10/2021 5:42 EDT Blood Pressure Location Arm, left upper Blood Pressure Source Non-Invasive BP Device Systolic Blood Pressure 111 mmHg Diastolic Blood Pressure 56 mmHg LOW Temperature Source Oral Temperature Mode Fahrenheit Temperature, Fahrenheit 97.2 Deg F Clinical Temperature, C 36.2 Deg C Peripheral Pulse Rate 79 bpm Respiratory Rate 18 Breaths/Min Oxygen Saturation 100 % Oxygen Therapy Mode Room air . Oxygen saturation. General: Alert, no acute distress. Skin: Warm. Head: Normocephalic. Neck: Supple. Eye: Sclera: not icteric. Ears, nose, mouth and throat: Oral mucosa moist. Cardiovascular: Regular rate and rhythm, No murmur, Normal peripheral perfusion, No edema. Respiratory: Lungs are clear to auscultation, respirations are non-labored, breath sounds are equal. Chest wall: No tenderness. Back: Nontender. Gastrointestinal: Soft, Nontender, Non distended, Normal bowel sounds. Genitourinary: Normal external genitalia. Os closed. Scant amount of brownish-red bleeding noted. No bimanual tenderness.. Neurological: No focal neurological deficit observed. Lymphatics: No lymphadenopathy. Psychiatric: Cooperative. Medical Decision Making Notes: * Final Report * Reason For Exam vaginal bleeding REPORT PELVIC ULTRASOUND HISTORY: Spotting. COMPARISON: 1. Day prior PROCEDURE: Transvaginal images of the pelvis were obtained. FINDINGS: There is are 2 IUPs identified. Baby A: Baby A demonstrates a CR length of 2.5 cm corresponding to 9 weeks and 1 day. heart rate is 165 beats per minute . There is a hypoechoic focus possibly representing a subchorionic hemorrhage, this appears smaller from the prior exam and measures 2.9 x 2.2 cm. Baby B: Baby B demonstrates a CR length of 2.5 cm corresponding to 9 weeks and 2 days. The heart rate is 167 bpm. IMPRESSION: 2 living IUPs as described. Possible subchorionic hemorrhage as above. Images reviewed, interpreted, and dictated by Dr. Sanjuanita Herman. Transcribed by Kory Ramon PA-C. I have personally viewed, interpreted and dictated the examination. I have read and agree with the above final transcribed report. Signature Line Final Dictated by: KORY RAMON PA-C Dictated DT/TM: 04/11/2021 1:56 pm Interpreted and electronically signed by: SANJUANITA HERMAN MD-RAD Signed DT/TM: 04/11/2021 2:10 pm Transcribed by: RS REPORT This document has an image Result type: US OB Transvaginal Result date: April 11, 2021 12:58 EDT Result status: Auth (Verified) Result title: US OB Transvaginal Signed By/Author: KORY RAMON PA-C on April 11, 2021 13:56 EDT Verified by: SANJUANITA HERMAN MD-RAD on April 11, 2021 14:10 EDT Encounter info: [id number], BEREKET Diaz [facility], Emergency Room, 04/11/2021 - 04/11/2021 . Reexamination/ Reevaluation Patient firmly refuses to be stuck for labs. She assures me that she has had her blood type before and she is Rh positive. States she just wants an ultrasound because she has highly concerned about the viability of her . Ultrasound shows a subchorionic hemorrhage that is smaller from previous ultrasound. This is consistent with the patient's reported history of mild vaginal bleeding. We discussed strict pelvic rest and follow-up with ORTHOPEDIC SHOES SALESPERSON. Patient voices understanding and agreement with plan. Impression and Plan Diagnosis First trimester bleeding - Discharge, Medical Subchorionic hemorrhage - Discharge, Medical Threatened miscarriage - Discharge, Medical Plan Condition: Improved, Stable. Disposition: Discharged Admit/Transfer/Discharge: Discharge (Order): Start: 04/11/2021 14:16 EDT, Discharge to: Home. Patient was given the following educational materials: Subchorionic Hematoma, Subchorionic Hematoma, Vaginal Bleeding During , First Trimester, Threatened Miscarriage. Follow up with: ; Follow up with primary care provider Within 2 to 3 days Call for follow up appointment. Return to the ER for any new or worsening symptoms as discussed, especially fever, persistent pelvic pain, vaginal bleeding greater than 2 pads/hour. Recommend pelvic rest as discussed. Follow-up with your ORTHOPEDIC SHOES SALESPERSON in 2 days for repeat assessment., Follow up with primary care provider Within 2 to 3 days Call for follow up appointment. Return to the ER for any new or worsening symptoms as discussed, especially fever, persistent pelvic pain, vaginal bleeding greater than 2 pads/hour. Recommend pelvic rest as discussed. Follow-up with your ORTHOPEDIC SHOES SALESPERSON in 2 days for repeat assessment., Follow up with primary care provider Within 2 to 3 days Call for follow up appointment. Return to the ER for any new or worsening symptoms as discussed, especially fever, persistent pelvic pain, vaginal bleeding greater than 2 pads/hour. Recommend pelvic rest as discussed. Follow-up with your ORTHOPEDIC SHOES SALESPERSON in 2 days for repeat assessment.. Counseled: Patient, Regarding diagnosis, Regarding diagnostic results, Regarding treatment plan, Patient indicated understanding of instructions. documented in this encounter Plan of Treatment Not on file documented as of this encounter Visit Diagnoses Not on filedocumented in this encounter
--- OUTSIDE RECORDS SUMMARY | 2025-01-11 13:25 | XMS_ITS | Encounter Summary ---
Author Organization [employer] Address [address] [place] [address] Care Team Providers Care Security Coordinator Name Role Phone Unavailable Primary Care Provider Unavailabl e Encounter Details Date Type Department Care Team (Late st Contact Info) Description 04/11/2021 Transcribed Document [facility] [place] [address] [place] [address] ProviderJuan Carlos MD [address] [place], [place] [id number] Social History Tobacco Use Types Packs/Day Years [...] Historical ProviderMD - 04/11/2021 9:48 AM CDT Broset Violence Assessment Entered On: 04/11/2021 12:05 EDT Performed On: 04/11/2021 12:04 EDT by Lacey Chau RN Broset Violence Assessment Broset Violence Checklist of Symptoms : None Broset Violence Symptoms Subtotal : 0 Broset Violence Symptoms Indicator : Low risk (0) Lacey Chau RN - 04/11/2021 12:04 EDT documented in this encounter Plan of Treatment Not on file documented as of this encounter Visit Diagnoses Not on filedocumented in this encounter
--- OUTSIDE RECORDS SUMMARY | 2025-01-11 13:25 | XMS_ITS | Encounter Summary ---
Author Organization [employer] Address [address] [place] [address] Care Team Providers Care Customer Experience Retail Clerk Name Role Phone Unavailable Primary Care Provider Unavailabl e Encounter Details Date Type Department Care Team (Late st Contact Info) Description 04/07/2021 Transcribed Document [facility] [place] [address] [place] [address] ProviderJuan Carlos MD [address] [place] [address] Social History Tobacco Use Types [...] Historical ProviderMD - 04/07/2021 7:59 PM CDT Broset Violence Assessment Entered On: 04/08/2021 0:17 EDT Performed On: 04/08/2021 0:16 EDT by MARIANA ESTEVES RN Broset Violence Assessment Broset Violence Checklist of Symptoms : None Broset Violence Symptoms Subtotal : 0 Broset Violence Symptoms Indicator : Low risk (0) MARIANA ESTEVES RN - 04/08/2021 0:16 EDT Electronically signed by Brian Zayas Conversion Health Assessment And Treatment Teacher Yu at 11/21/2022 11:47 PM CDT documented in this encounter Plan of Treatment Not on file documented as of this encounter Visit Diagnoses Not on filedocumented in this encounter
--- OUTSIDE RECORDS SUMMARY | 2025-01-11 13:25 | XMS_ITS | Encounter Summary ---
Author Organization [employer] Address [address] [place] [id number] Care Team Providers Care Photovoltaic Panel Installer Name Role Phone Unavailable Primary Care Provider Unavailabl e Encounter Details Date Type Department Care Team (Late st Contact Info) Description 04/11/2021 Transcribed Document [facility] [place] [facility] [place] [address] ProviderJuan Carlos MD [address] [place] [address] Social History Tobacco Use Types [...] Conversion Note - Juan Carlos ProviderMD - 04/11/2021 2:23 [place] [address] LIBERTAD WEBBNE :2000 Visit Time:04/11/2021 Your Visit Summary Your Care Team Primary Provider: AMAURY CASTELLANOS Secondary Provider: Your Diagnosis First trimester bleeding Subchorionic hemorrhage Threatened miscarriage Vaginal bleeding Vaginal bleeding - < 20 wks Medical Information You may obtain a copy [...] pelvic rest as discussed. Follow-up with your PRODUCE PRODUCTION TEAM MEMBER in 2 days for repeat assessment. Allergies No Known Medication Allergies Immunizations This [...] This Visit (last charted value for your 04/11/2021 visit) Ultrasound 04/11/2021 12:58 PM US OB Transvaginal: US OB Transvaginal Education Materials Threatened Miscarriage A threatened miscarriage occurs when a woman has vaginal bleeding during the first 20 weeks of but the has not ended. If you have vaginal bleeding during this time, your health care provider will do tests to make sure you are still . If the tests show that you are still and that the developing baby (fetus) inside your uterus is still growing, your condition is considered a threatened miscarriage. A threatened miscarriage does not mean your will end, but it does increase the risk of losing your (complete miscarriage). What are the causes? The cause of this condition is usually not known. For women who go on to have a complete miscarriage, the most common cause is an abnormal number of chromosomes in the developing baby. Chromosomes are the structures inside cells that hold all of a person's genetic material. What increases the risk? The following lifestyle factors may increase your risk of a miscarriage in early : ??? Smoking. ??? Drinking excessive amounts of alcohol or caffeine. ??? Recreational drug use. The following preexisting health conditions may increase your risk of a miscarriage in early : ??? Polycystic ovary syndrome. ??? Uterine fibroids. ??? Infections. ??? Diabetes mellitus. What are the signs or symptoms? Symptoms of this condition include: ??? Vaginal bleeding. ??? Mild abdominal pain or cramps. How is this diagnosed? If you have bleeding with or without abdominal pain before 20 weeks of , your health care provider will do tests to check whether you are still . These will include: ??? Ultrasound. This test uses sound waves to create images of the inside of your uterus. This allows your health care provider to look at your developing baby and other structures, such as your placenta. ??? Pelvic exam. This is an internal exam of your vagina and cervix. ??? Measurement of your baby's heart rate. ??? Laboratory tests such as blood tests, urine tests, or swabs for infection You may be diagnosed with a threatened miscarriage if: ??? Ultrasound testing shows that you are still . ??? Your baby???s heart rate is strong. ??? A pelvic exam shows that the opening between your uterus and your vagina (cervix) is closed. ??? Blood tests confirm that you are still . How is this treated? No treatments have been shown to prevent a threatened miscarriage from going on to a complete miscarriage. However, the right home care is important. Follow these instructions at home: ??? Get plenty of rest. ??? Do not have sex or use tampons if you have vaginal bleeding. ??? Do not douche. ??? Do not smoke or use recreational drugs. ??? Do not drink alcohol. ??? Avoid caffeine. ??? Keep all follow-up visits as told by your health care provider. This is important. Contact a health care provider if: ??? You have light vaginal bleeding or spotting while . ??? You have abdominal pain or cramping. ??? You have a fever. Get help right away if: ??? You have heavy vaginal bleeding. ??? You have blood clots coming from your vagina. ??? You pass tissue from your vagina. ??? You leak fluid, or you have a gush of fluid from your vagina. ??? You have severe low back pain or abdominal cramps. ??? You have fever, chills, and severe abdominal pain. Summary ??? A threatened miscarriage occurs when a woman has vaginal bleeding during the first 20 weeks of but the has not ended. ??? The cause of a threatened miscarriage is usually not known. ??? Symptoms of this condition may include vaginal bleeding and mild abdominal pain or cramps. ??? No treatments have been shown to prevent a threatened miscarriage from going on to a complete miscarriage. ??? Keep all follow-up visits as told by your health care provider. This is important. This information is not intended to replace advice given to you by your health care provider. Make sure you discuss any questions you have with your health care provider. Document Revised: 08/31/2018 Document Reviewed: 10/21/2017 [employer] Patient Education ?? 2020 [employer] Vaginal Bleeding During , First Trimester A small amount of bleeding from the vagina (spotting) is relatively common during early . It usually stops on its own. Various things may cause bleeding or spotting during early . Some bleeding may be related to the , and some may not. In many cases, the bleeding is normal and is not a problem. However, bleeding can also be a sign of something serious. Be sure to tell your health care provider about any vaginal bleeding right away. Some possible causes of vaginal bleeding during the first trimester include: ??? Infection or inflammation of the cervix. ??? Growths (polyps) on the cervix. ??? Miscarriage or threatened miscarriage. ??? tissue developing outside of the uterus (ectopic ). ??? A mass of tissue developing in the uterus due to an egg being fertilized incorrectly (molar ). Follow these instructions at home: Activity ??? Follow instructions from your health care provider about limiting your activity. Ask what activities are safe for you. ??? If needed, make plans for someone to help with your regular activities. ??? Do not have sex or orgasms until your health care provider says that this is safe. General instructions ??? Take ndcm-lut-xvekvmm and prescription medicines only as told by your health care provider. ??? Pay attention to any changes in your symptoms. ??? Do not use tampons or douche. ??? Write down how many pads you use each day, how often you change pads, and how soaked (saturated) they are. ??? If you pass any tissue from your vagina, save the tissue so you can show it to your health care provider. ??? Keep all follow-up visits as told by your health care provider. This is important. Contact a health care provider if: ??? You have vaginal bleeding during any part of your . ??? You have cramps or labor pains. ??? You have a fever. Get help right away if: ??? You have severe cramps in your back or abdomen. ??? You pass large clots or a large amount of tissue from your vagina. ??? Your bleeding increases. ??? You feel light-headed or weak, or you faint. ??? You have chills. ??? You are leaking fluid or have a gush of fluid from your vagina. Summary ??? A small amount of bleeding (spotting) from the vagina is relatively common during early . ??? Various things may cause bleeding or spotting in early . ??? Be sure to tell your health care provider about any vaginal bleeding right away. This information is not intended to replace advice given to you by your health care provider. Make sure you discuss any questions you have with your health care provider. Document Revised: 11/13/2019 Document Reviewed: 10/27/2017 [employer] Patient Education ?? 2019 [employer] Subchorionic Hematoma A subchorionic hematoma is a gathering of blood between the outer wall of the embryo (chorion) and the inner wall of the womb (uterus). This condition can cause vaginal bleeding. If they cause little or no vaginal bleeding, early small hematomas usually shrink on their own and do not affect your baby or . When bleeding starts later in , or if the hematoma is larger or occurs in older women, the condition may be more serious. Larger hematomas may get bigger, which increases the chances of miscarriage. This condition also increases the risk of: ??? Premature separation of the placenta from the uterus. ??? Premature () labor. ??? Stillbirth. What are the causes? The exact cause of this condition is not known. It occurs when blood is trapped between the placenta and the uterine wall because the placenta has from the original site of implantation. What increases the risk? You are more likely to develop this condition if: ??? You were treated with fertility medicines. ??? You conceived through in vitro fertilization (IVF). What are the signs or symptoms? Symptoms of this condition include: ??? Vaginal spotting or bleeding. ??? Contractions of the uterus. These cause abdominal pain. Sometimes you may have no symptoms and the bleeding may only be seen when ultrasound images are taken (transvaginal ultrasound). How is this diagnosed? This condition is diagnosed based on a physical exam. This includes a pelvic exam. You may also have other tests, including: ??? Blood tests. ??? Urine tests. ??? Ultrasound of the abdomen. How is this treated? Treatment for this condition can vary. Treatment may include: ??? Watchful waiting. You will be monitored closely for any changes in bleeding. During this stage: ? The hematoma may be reabsorbed by the body. ? The hematoma may separate the fluid-filled space containing the embryo (gestational sac) from the wall of the womb (endometrium). ??? Medicines. ??? Activity restriction. This may be needed until the bleeding stops. Follow these instructions at home: ??? Stay on bed rest if told to do so by your health care provider. ??? Do not lift anything that is heavier than 10 lbs. (4.5 kg) or as told by your health care provider. ??? Do not use any products that contain nicotine or tobacco, such as cigarettes and e-cigarettes. If you need help quitting, ask your health care provider. ??? Track and write down the number of pads you use each day and how soaked (saturated) they are. ??? Do not use tampons. ??? Keep all follow-up visits as told by your health care provider. This is important. Your health care provider may ask you to have follow-up blood tests or ultrasound tests or both. Contact a health care provider if: ??? You have any vaginal bleeding. ??? You have a fever. Get help right away if: ??? You have severe cramps in your stomach, back, abdomen, or pelvis. ??? You pass large clots or tissue. Save any tissue for your health care provider to look at. ??? You have more vaginal bleeding, and you faint or become lightheaded or weak. Summary ??? A subchorionic hematoma is a gathering of blood between the outer wall of the placenta and the uterus. ??? This condition can cause vaginal bleeding. ??? Sometimes you may have no symptoms and the bleeding may only be seen when ultrasound images are taken. ??? Treatment may include watchful waiting, medicines, or activity restriction. This information is not intended to replace advice given to you by your health care provider. Make sure you discuss any questions you have with your health care provider. Document Revised: 07/07/2018 Document Reviewed: 09/20/2017 [employer] Patient Education ?? 2020 [employer]. Emergency Awareness and Preventative Care STROKE [...] Assistance with quitting is available by contacting 3-381-ZCQDNOW. This is a free resource providing counseling, [...] emergency, radiology, or pathology physicians. Patient Name:LIBERTAD WEBB I have received this information and was given the opportunity to ask questions. Patient/Manager Epic Name: Patient/Manager Epic Signature: Relationship to Patient: Clinician/Hospital Manager Epic Signature: Please Provide a Telephone Number Where You Can Be Reached: Is it Permissible To Leave a Message? Date: Electronically signed by Chana, [facility] Conversion Fountain Brush Assembler Cerner at 11/21/2022 11:34 PM CDT documented in this encounter Plan of Treatment Not on file documented as of this encounter Visit Diagnoses Not on filedocumented in this encounter
--- OUTSIDE RECORDS SUMMARY | 2025-01-11 13:25 | XMS_ITS | Encounter Summary ---
Author Organization [employer] Address [address] [place] [address] Care Team Providers Care Ferry Engineer Name Role Phone Unavailable Primary Care Provider Unavailabl e Encounter Details Date Type Department Care Team (Late st Contact Info) Description 04/07/2021 Transcribed Document [facility] [place] [facility] [place] [address] ProviderJuan Carlos MD [address] [place] [address] Social History Tobacco Use Types [...] Conversion Note - Historical ProviderMD - 04/07/2021 10:36 PM CDT Patient: LIBERTAD WEBB Age: 20 years Sex: Female : 2000 Associated Diagnoses: COVID-19; Twin in first trimester Author: AMAURY CASTELLANOS PA Basic Information Time seen: Date & time 04/07/2021 22:36:00. History source: Patient. Arrival mode: Private vehicle. History limitation: None. Additional information: Chief Complaint from Nursing Triage Note : Chief Complaint 04/07/2021 21:15 EDT Chief Complaint Pt. co cough, sorethroat, weakness, that began today. Skinpwd. . History of Present Illness Patient is a 20-year-old G1 8 weeks gestation with twin who presents today with cough, sore throat, and fatigue that began this morning. Patient reports her significant other is also sick with similar symptoms and she does endorse a COVID-19 exposure. She denies any fever or difficulty breathing. States that she had a recent ultrasound confirming a twin gestation. She is in the process of transitioning her care from her OB at [facility] her sleep as to a high heel builder at . Denies any abdominal pain or vaginal bleeding. Review of Systems Constitutional symptoms: Negative except [...] as documented in HPI. Health Status Allergies: Allergic Reactions (All) No Known Medication Allergies. Past Medical/ Family/ Social History Medical history Reviewed as documented in chart. Surgical history: Procedure history reviewed.. Family history: Not significant. Social history: Social & Psychosocial Habits Denies tobacco, drug use. . Problem list: Active Problems (1) No Chronic Problems . Physical Examination Vital Signs Vital Measurements 04/08/2021 0:17 EDT Systolic Blood Pressure 110 mmHg Diastolic Blood Pressure 64 mmHg Peripheral Pulse Rate 75 bpm Respiratory Rate 20 Breaths/Min Oxygen Saturation 100 % Oxygen Therapy [...] Soft, Nontender, Non distended, Normal bowel sounds. Neurological: No focal neurological deficit observed. Lymphatics: No lymphadenopathy. Psychiatric: Cooperative. Medical Decision Making Results review: Lab results : Lab Results 04/07/2021 21:25 EDT SARS-CoV-2 (COVID19 PCR) Positive . Reexamination/ Reevaluation I performed a bedside ultrasound to assess for heart tones. heart tones noted to be in the 150s for both pregnancies. I discussed at length the risks versus benefits of regeneron with patient, her significant other, and patient's sister who is a nurse via phone. After much thought patient declines the infusion. We discussed follow-up and return precautions and she voices understanding and agreement. Impression and Plan Diagnosis COVID-19 - Discharge, Medical Twin in first trimester - Discharge, Medical Plan Condition: Stable. Disposition: Discharged Admit/Transfer/Discharge: Discharge (Order): Start: 04/07/2021 23:58 EDT, Discharge to: Home. Patient was given the following educational materials: COVID-19 Frequently Asked Questions, COVID-19: How to Protect Yourself and Others - CDC, COVID-19: What Your Test Results Mean - [facility]ED [facility]. Follow up with: Follow up with primary care provider Within 2 to 3 days Call for follow up appointment. Return to the ER for any new or worsening symptoms as discussed, especially difficulty breathing or low O2 sat below 90%. Drink plenty of fluids and rest. You may take Tylenol as needed. Follow-up with your HAT CHECKER.; , Follow up with primary care provider Within 2 to 3 days Call for follow up appointment. Return to the ER for any new or worsening symptoms as discussed, especially difficulty breathing or low O2 sat below 90%. Drink plenty of fluids and rest. You may take Tylenol as needed. Follow-up with your HAT CHECKER.. Counseled: Patient, Regarding diagnosis, Regarding diagnostic results, Regarding treatment plan, Patient indicated understanding of instructions. documented in this encounter Plan of Treatment Not on file documented as of this encounter Visit Diagnoses Not on filedocumented in this encounter
--- OUTSIDE RECORDS SUMMARY | 2025-01-11 13:25 | XMS_ITS | Encounter Summary ---
Author Organization [employer] Address [address] [place] [address] Care Team Providers Care Loan Servicing Specialist Name Role Phone Unavailable Primary Care Provider Unavailabl e Encounter Details Date Type Department Care Team (Late st Contact Info) Description 04/10/2021 Transcribed Document [facility] [place] [facility] [place] [address] ProviderJuan Carlos MD [address] [place] [address] Social History Tobacco Use Types [...] Note - Juan Carlos ProviderMD - 04/10/2021 5:27 AM CDT ED Triage Entered On: 04/10/2021 5:45 EDT Performed On: 04/10/2021 5:42 EDT by KIYA GUERRA RN ED Triage Across the Room Chief Complaint : Patient came back for IV antibody administration for covid. PAtient still coughing, has bodyaches at 8/10, N/V. Denies diarrhea; LMP: sometime in December 2020 KIYA GUERRA RN - 04/10/2021 6:45 EDT Triage Date/Time : 04/10/2021 5:42 EDT KIYA GUERRA RN - 04/10/2021 5:42 EDT DCP GENERIC CODE Tracking Group : [facility] Tracking Acuity : 3 - Urgent KIYA GUERRA RN - 04/10/2021 5:42 EDT Mode of Arrival : Ambulatory Transported to ED by : Private vehicle To Room Via : Ambulate Accompanied By : Significant other ED Vital Signs : Document Height & Weight : Document ED Allergies : Document ED Reason for Visit : Document KIYA GUERRA RN - 04/10/2021 5:42 EDT Infectious Disease History Has the patient ever been tested for COVID-19? : Yes, Patient stated results Positive Date of COVID-19 test known? : Yes Date of COVID-19 Test : 04/07/2021 EDT Does patient have symptoms of COVID-19? : Yes COVID19 Screening : No Experiencing Infectious Disease Symptoms : Vomiting, Muscle pain, Cough Physical contact outside [place] in the last 30 days : No Infectious Disease History : None Tuberculosis Symptoms : None KIYA GUERRA RN - 04/10/2021 5:42 EDT Vital Signs ED Temperature Source : Oral Temperature Mode : Fahrenheit Temperature, Fahrenheit : 97.2 Deg F ED Pain : Yes Clinical Temperature, C : 36.2 Deg C Oxygen Therapy Mode : Room air Peripheral Pulse Rate : 79 bpm Respiratory Rate : 18 Breaths/Min Blood Pressure Location : Arm, left upper Blood Pressure Source : Non-Invasive BP Device Systolic Blood Pressure : 111 mmHg Diastolic Blood Pressure : 56 mmHg (LOW) Oxygen Saturation : 100 % KIYA GUERRA RN - 04/10/2021 5:42 EDT Allergy (As Of: 04/10/2021 05:45:57 EDT) Allergies (Active) No Known Medication Allergies Estimated Onset Date: Unspecified ; Created By: MARIANA ESTEVES RN; Reaction Status: Active ; Category: Drug ; Substance: No Known Medication Allergies ; Type: Allergy ; Updated By: MARIANA ESTEVES RN; Reviewed Date: 04/10/2021 5:42 EDT Diagnosis Control ED (As Of: 04/10/2021 05:45:57 EDT) Problems(Active) Disease caused by 2019 novel coronavirus (SNOMED CT :[id number] ) Name of Problem: Disease caused by 2019 novel coronavirus ; Recorder: SYSTEM, SYSTEM; Confirmation: Confirmed ; Classification: Medical ; Code: [id number] ; Last Updated: 04/07/2021 22:55 EDT ; Life Cycle Date: 04/07/2021 ; Life Cycle Status: Active ; Vocabulary: SNOMED CT ; Comments: 04/07/2021 22:55 - SYSTEM, SYSTEM Problem added by a rule: [id number]. Diagnoses(Active) Medication administration Date: 04/10/2021 ; Diagnosis Type: Reason For Visit ; Confirmation: Complaint of ; Clinical Dx: Medication administration ; Classification: Medical ; Clinical Service: Emergency medicine ; Code: PNED ; Probability: 0 ; Diagnosis Code: [id number] ED Height and Weight Height Source : Measured Height Entry Format : [place] Height, Feet : 5 ft(Converted to: 152 cm, 60 Inch) Height, Inches : 7 Inch(Converted to: 0 ft 7 Inch, 17.78 cm) Clinical Height : 170.18 cm Weight Source, ED : Standing scale Weight Entry Format : [place] Weight, Pounds : 128 lb Clinical Dosing Weight : 58.18 kg Body Surface Area (BSA) : 1.67 m2 Body Mass Index : 20.1 kg/m2 [place] Body Weight (IBW) : 61.16 kg KIYA GUERRA RN - 04/10/2021 5:42 EDT Pain Assessment Pain Assessment : Initial assessment Pain Scale Used : 0-10 Scale Location : Other: all over Quality : Aching KIYA GUERRA RN - 04/10/2021 5:42 EDT Pain Scale Intensity : 8 KIYA GUERRA RN - 04/10/2021 5:42 EDT Image 4 - Images currently included in the form version of this document have not been included in the text rendition version of the form. ED Influenza/Pneumoccocal Vaccine Influenza Immunization, Current Season : No Previous Vaccines from Immunization Schedule : No qualifying data available. KIYA GUERRA RN - 04/10/2021 5:42 EDT Electronically signed by Brian Zayas Conversion Professional Application Designer Cerner at 11/21/2022 11:40 PM CDT documented in this encounter Plan of Treatment Not on file documented as of this encounter Visit Diagnoses Not on filedocumented in this encounter
--- OUTSIDE RECORDS SUMMARY | 2025-01-11 13:25 | XMS_ITS | Encounter Summary ---
Author Organization [employer] Address [address] [place] [address] Care Team Providers Care General Assembler Installer Name Role Phone Unavailable Primary Care Provider Unavailabl e Encounter Details Date Type Department Care Team (Late st Contact Info) Description 04/08/2021 Transcribed Document [facility] Family Medicine [facility] [place] [address] ProviderJuan Carlos MD [address] [place] [address] Social History Tobacco Use Types [...] Note - Juan Carlos ProviderMD - 04/08/2021 12:17 AM CDT ED Discharge Entered On: 04/08/2021 0:18 EDT Performed On: 04/08/2021 0:17 EDT by MARIANA ESTEVES RN Discharge Process Patient Disposition : Discharge Personal Belongings With Patient : Yes Patient Education Completed : Yes Teaching Evaluation : Verbalizes understanding Link to Valuables and Belongings form : No IV Discontinued : Not applicable Nursing Documentation Completed : Yes MARIANA ESTEVES RN - 04/08/2021 0:17 EDT ED Discharge Vital Signs Peripheral Pulse Rate : 75 bpm Respiratory Rate : 20 Breaths/Min Systolic Blood Pressure : 110 mmHg Diastolic Blood Pressure : 64 mmHg Oxygen Saturation : 100 % Oxygen Therapy Mode : Room air MARIANA ESTEVES RN - 04/08/2021 0:17 EDT ED Discharge Discharge To : Home without planned follow-up Mode Of Departure : Ambulatory Accompanied By : Significant other Discharge Instructions Reviewed With, Opportunity For Questions Given : Patient Prescriptions Given to Patient : MARIANA Hua RN - 04/08/2021 0:17 EDT documented in this encounter Plan of Treatment Not on file documented as of this encounter Visit Diagnoses Not on filedocumented in this encounter
--- OUTSIDE RECORDS SUMMARY | 2025-01-11 13:25 | XMS_ITS | Encounter Summary ---
Author Organization [employer] Address [address] [place] [address] Care Team Providers Care Metropolitan Editor Name Role Phone Unavailable Primary Care Provider Unavailabl e Encounter Details Date Type Department Care Team (Late st Contact Info) Description 04/11/2021 Transcribed Document [facility] [place] Family Medicine [address] [place] [address] ProviderJuan Carlos MD [address] [place] [address] Social History Tobacco Use Types [...] Conversion Note - Historical ProviderMD - 04/11/2021 2:33 PM CDT ED Event Note Entered On: 04/11/2021 14:35 EDT Performed On: 04/11/2021 14:33 EDT by Lacey Chau RN ED Event Note ED Event Date/Time : 04/11/2021 14:33 EDT ED Description of Event : pt refused most screening today including blood work and urine annalysis there for we had her sign an ama form upon discharge . it was explained to her because of the risks involved with leaving with out screening we could not check Kandi bass Emily, RN - 04/11/2021 14:33 EDT documented in this encounter Plan of Treatment Not on file documented as of this encounter Visit Diagnoses Not on filedocumented in this encounter
--- OUTSIDE RECORDS SUMMARY | 2025-01-11 13:25 | XMS_ITS | Encounter Summary ---
Author Organization [employer] Address [address] [place] [address] Care Team Providers Care Director Biologics Name Role Phone Unavailable Primary Care Provider Unavailabl e Encounter Details Date Type Department Care Team (Late st Contact Info) Description 04/10/2021 Transcribed Document [facility] [place] [facility] [place] [address] ProviderJuan Carlos MD [address] [place] [address] Social History Tobacco Use Types [...] ProviderMD - 04/10/2021 5:27 AM CDT ED Assessment Entered On: 04/10/2021 6:47 EDT Performed On: 04/10/2021 6:46 EDT by Nasreen Aldridge RN-PATIENT CARE BEDSIDE NON-EXEMPT ED Quick Look Assessment Level of Consciousness : Alert, Awake Affect/Behavior : Appropriate, Calm, Cooperative Skin Temperature : Warm Skin Description : Normal for ethnicity Nasreen Aldridge RN-PATIENT CARE BEDSIDE NON-EXEMPT - 04/10/2021 6:46 EDT ED General-Functional Assess Preferred Communication Mode : Verbal Communication Barrier : None Primary Language : Kenyan Any Spiritual/Cultural Needs or Requests : No Currently in Unsafe Situation : No Nasreen Aldridge RN-PATIENT CARE BEDSIDE NON-EXEMPT - 04/10/2021 6:46 EDT Social Habits Smoking Status : Never (less than 100 in lifetime; none in last 30 days) Smokeless Tobacco Status : Never Desires Tobacco Cessation Calc : 0 Nasreen Aldridge RN-PATIENT CARE BEDSIDE NON-EXEMPT - 04/10/2021 6:46 EDT Social History (As Of: 04/10/2021 06:47:47 EDT) Tobacco: Never (less than 100 in lifetime) Smoking Status. (Last Updated: 04/10/2021 05:46:12 EDT by KIYA GUERRA RN) Alcohol: Alcohol Use History No. Use in Last 12 Months: No. (Last Updated: 04/10/2021 05:46:15 EDT by KIYA GUERRA RN) Substance Abuse: Drug Use Hx: No. Use in Last 12 Months: No. (Last Updated: 04/10/2021 05:46:18 EDT by KIYA GUERRA RN) Cardiovascular ASMT, ED Cardiovascular Assessment WDL : Nasreen Santana RN-PATIENT CARE BEDSIDE NON-EXEMPT - 04/10/2021 6:46 EDT Respiratory Respiratory Assessment WDL : Nasreen Santana RN-PATIENT CARE BEDSIDE NON-EXEMPT - 04/10/2021 6:46 EDT Integumentary Assessment Integumentary Assessment WDL : Nasreen Santana RN-PATIENT CARE BEDSIDE NON-EXEMPT - 04/10/2021 6:46 EDT Neurologic ASMT, ED Neurologic Assessment WDL : Nasreen Santana RN-PATIENT CARE BEDSIDE NON-EXEMPT - 04/10/2021 6:46 EDT Electronically signed by Chana [facility] Conversion Streetcar Operator Cerner at 11/21/2022 11:44 PM CDT documented in this encounter Plan of Treatment Not on file documented as of this encounter Visit Diagnoses Not on filedocumented in this encounter
--- OUTSIDE RECORDS SUMMARY | 2025-01-11 13:25 | XMS_ITS | Encounter Summary ---
Author Organization [email or web address] Address [address] [place] [address] Care Team Providers Care Silk Trimmer Name Role Phone Unavailable Primary Care Provider Unavailabl e Encounter Details Date Type Department Care Team (Late st Contact Info) Description 04/08/2021 Transcribed Document [facility] [place] [address] [place] [address] ProviderJuan Carlos MD [address] [place] [address] Social History Tobacco Use Types [...] Cerner Conversion Note - Historical ProviderMD - 04/08/2021 12:10 AM CDT SARS-CoV-2 (COVID19 PCR) - - Positive 04/07/2021 22:55 04/08/2021 00:10 (AMAURY CASTELLANOS PA) Reviewed by Provider, No further action required documented in this encounter Plan of Treatment Not on file documented as of this encounter Visit Diagnoses Not on filedocumented in this encounter
--- OUTSIDE RECORDS SUMMARY | 2025-01-11 13:25 | XMS_ITS | Encounter Summary ---
Author Organization [email or web address] Address [address] [place] [address] Care Team Providers Care Gamma Ray Operator Name Role Phone Unavailable Primary Care Provider Unavailabl e Encounter Details Date Type Department Care Team (Late st Contact Info) Description 04/11/2021 Transcribed Document [facility] [place] [facility] [place] [address] ProviderJuan Carlos MD [facility] [place] [address] Social History Tobacco Use Types [...] Conversion Note - Historical ProviderMD - 04/11/2021 2:35 PM CDT ED Discharge Entered On: 04/11/2021 14:35 EDT Performed On: 04/11/2021 14:35 EDT by Lacey Chau RN Discharge Process Patient Disposition : AMA/Elope/LWBS, Discharge Personal Belongings With Patient : Yes Patient Education Completed : No Teaching Evaluation : Needs further teaching, Needs reinforcement IV Discontinued : Not applicable Nursing Documentation Completed : Yes Lacey Chau RN - 04/11/2021 14:35 EDT ED Discharge Discharge To : Home without planned follow-up Accompanied By : Significant other Discharge Instructions Reviewed With, Opportunity For Questions Given : Patient Prescriptions Given to Patient : No Medications Given to Patient : No Lacey Chau RN - 04/11/2021 14:35 EDT Electronically signed by Chana [facility] Conversion Scientific Diver Cerner at 11/21/2022 11:36 PM CDT documented in this encounter Plan of Treatment Not on file documented as of this encounter Visit Diagnoses Not on filedocumented in this encounter
--- OUTSIDE RECORDS SUMMARY | 2025-01-11 13:26 | XMS_ITS | Encounter Summary ---
Author Organization Healthcare Address [address] [place] [address] Care Team Providers Care Offshore Diver Name Role Phone Krysten Burt MD Primary Care Provider [phone] Encounter Details Date Type Department Care Team (Late st Contact Info) Description 11/05/2024 Orders Only External Location [address] [place] [address] Provider, External Social History Tobacco Use Types Packs/Day Years Used Date Smoking Tobacco: Never Smokeless Tobacco: Never Alcohol Use Standard Drinks/Week Comments Not Currently 0 (1 standard drink = 0.6 oz pur e alcohol) pre- Humiliation, Afraid, Rape, and Kick questionnair e Answer Date Recorded Within the last year, have y ou been afraid of your partner or ex-partner? No 03/27/2024 Within the last year, have y ou been humiliated or emotionally abused in other ways by your partner or ex-partner? No Within the last year, have y ou been kicked, hit, slapped, or otherwise physically hurt by your partner or ex-partner? No 03/27/2024 Within the last year, have y ou been raped or forced to have any kind of sexual activity by your partner or ex-partner? No 03/27/2024 PHQ-2 Answer Date Recorded Patient Health Questionnaire-2 Score 4 05/28/2021 Hunger Vital Sign Answer Date Recorded Within the past 12 months, y ou worried that your food would run out before you got the money to buy more. Never true 03/27/20 24 Within the past 12 months, t he food you bought just didn't last and you didn't have money to get more. Never true 03/27/2024 PRAPARE - Transportation Answer Date Re corded In the past 12 months, has l ack of transportation kept you from medical appointments or from getting medications? No 03/09 In the past 12 months, has l ack of transportation kept you from meetings, work, or from getting things needed for daily living? No 03/27/2024 Housing Stability Vital Sign Answer Oliver e Recorded In the last 12 months, was t here a time when you were not able to pay the mortgage or rent on time? No 03/27/2024 In the last 12 months, how many places have you lived? 1 03/27/2024 In the last 12 months, was t here a time when you did not have a steady place to sleep or slept in a nursing home (including now)? No 03/27/2024 [place] Depression Scale Answer Date Recorded [place] Depression Scale Total 8 12/07/2021 The thought of harming myself has occurred to me . Never 12/07/2021 Utilities Answer Date Recorded In the past 12 months has th e electric, gas, oil, or water company threatened to shut off services in your home? No 03/27/2024 PHQ-2A Answer Date Recorded Depression Risk 5 06/14/2024 PHQ-9A Answer Date Recorded Depression Risk Score 16 06/14/2024 Comments Yes Sex and Gender Information Value Date Recorded Sex Assigned at Female 06/25/2021 1:56 PM EST Legal Sex Female 5:53 AM EDT Gender Identity Female 06/25/2021 1:56 PM EST Sexual Orientation Straight 06/25/2021 1: 56 PM EST documented as of this encounter Functional Status * Are you deaf or do you have serious difficulty hearing? Answer Date of Assessment Author No 06/13/2021 10:59 AM EDT Rosario Morillo RN * Are you blind or do you have serious difficulty seeing, even when wearing glasses? Answer Date of Assessment Author No 06/13/2021 10:59 AM EDT Rosario Morillo RN * Do you have serious difficulty walking or climbing stairs? Answer Date of Assessment Author No 06/13/2021 10:59 AM EDT Rosario Morillo RN * Do you have serious difficulty dressing or bathing? Answer Date of Assessment Author No 06/13/2021 10:59 AM EDT Rosario Morillo RN * Because of a physical, mental, or emotional condition, do you have serious difficulty doing errandsalone such as visiting the doctor? Answer Date of Assessment Author No 06/13/2021 10:59 AM EDT Rosario Morillo RN documented as of this encounter Mental Status * Because of a physical, mental, or emotional condition, do you have serious difficulty concentrating, remembering, or making decisions? (5 years old or older) Answer Entry Date Author No 06/13/2021 10:59 AM EDT Rosario Morillo RN documented in this encounter Plan of Treatment Not on file documented as of this encounter Procedures Procedure Name Priority Date/Time Associated Diagnosis Comments US ABDOMEN OUTSIDE IMAGES 11/05/2024 9:48 AM EDT documented in this encounter Results * US ABDOMEN OUTSIDE IMAGES (11/05/2024 9:48 AM EDT) Anatomical Region Laterality Modality Ultrasound 11/05/2024 9:48 AM EDT us External Provider IMG US PROCEDURES Final Result documented in this encounter Visit Diagnoses Not on filedocumented in this encounter Additional Health Concerns Assessment Noted Time PHQ-9 Depression Total Score: 7 05/28/20 21 11:01 AM EDT A fall risk assessment has been complete d for the patient 06/14/2024 10:14 AM EST A Body Mass Index follow-up plan has been documented for the patient 06/14/2024 11:37 AM EST documented as of this encounter Care Teams Offshore Diver Relationship Specialty Start Date End Date Krysten Burt MD [address] [facility] [address] [place] [phone] PCP - General Adolescent Medicine 12/29/22 documented as of this encounter
--- OUTSIDE RECORDS SUMMARY | 2025-01-11 13:26 | XMS_ITS | Encounter Summary ---
Author Organization Healthcare Address [address] [place] [address] Care Team Providers Care Control System Manager Name Role Phone Krysten Burt MD Primary Care Provider [phone] Encounter Details Date Type Department Care Team (Late st Contact Info) Description 11/10/2024 Orders Only External Location [address] [place] [address] María Ibarra, DO [address] [place] [address] Social History Tobacco Use Types Packs/Day Years [...] place to sleep or slept in a jail (including now)? No 03/27/2024 [place] Depression Scale Answer Date Recorded [place] Depression Scale Total 8 12/07/2021 The thought [...] Name Priority Date/Time Associated Diagnosis Comments US OUTSIDE IMAGES 11/10/2024 1:30 PM EDT documented in this encounter Results * US OUTSIDE IMAGES (11/10/2024 1:30 PM EDT) Anatomical Region Laterality Modality Ultrasound 11/10/2024 1:30 PM EDT us María Ibarra DO IMG US PROCEDURES Final Result documented in [...] documented as of this encounter Care Teams Control System Manager Relationship Specialty Start Date End Date Krysten Burt MD [address] [place] [address] PCP - General Adolescent Medicine 12/29/22 documented as of this encounter
--- OUTSIDE RECORDS SUMMARY | 2025-01-11 13:26 | XMS_ITS | Clinical Summary ---
Author Organization [facility] Address [address] [place] [address] Care Team Providers Care Java Technical Manager Name Role Phone Krysten Burt MD Primary Care Provider [phone] Allergies No known active allergies Medications pseudoephedrine (Sudafed) 30 MG tabletIndication s:Allergic rhinitis, unspecified seasonality, unspecified trigger Take 1 tablet (30 mg) by mouth every 4 (four) hours if needed for congestion for up to 10 days. 30 tablet 3 Active cetirizine (ZyrTEC) 10 MG tabletIndication s:Allergic rhinitis, unspecified seasonality, unspecified trigger Take 1 tablet (10 mg) by mouth 1 (one) time each day. 30 tablet 3 3 Active fluticasone (Flonase) 50 MCG/ACT nasal spray 1 spray. 4 Active Active Problems Problem Noted Date Diagnosed Date Encounter for supervision of normal , a ntepartum 08/10/2024 Sore throat 03/26/2022 Cough 03/26/2022 Sinus pressure 03/26/2022 Nasal congestion 06/11/2021 Encounter to establish care 05/28/2021 Mood swings 05/28/2021 Anxiety 05/28/2021 Positive depression screening 05/28/2021 Comments Yes Resolved Problems Problem Noted Date Diagnosed Date Resolved Date PROM (premature rupture of membranes) 10/23/2021 10/25/2021 Dichorionic diamniotic twin in third trimester 10/02/2021 10/25/2021 Overview (10/02/2021): Added automatically from request for surgery [id number] Encounters Date Type Department Care Team Description 11/10/2024 Orders Only External Location [address] [place] [address] María Ibarra, 11/05/2024 Orders Only External Location [address] [place] [address] Provider, External from Last 3 Months Immunizations Immunization Administration Dates Next Due Tdap 08/20/2021 Family History Medical History Relation Name Comments Alcohol abuse Maternal Grandmother Brandy Coker Drug abuse Maternal Grandmother Brandy Coker Miscarriages / Stillbirths Maternal Grandmother Brandy Coker Depression Mother Yael De Leon Arthritis Paternal Grandmother Bridgett De Leon Diabetes Paternal Grandmother Bridgett De Leon Relation Name Status Comments Maternal Grandmother Brandy Coker Mother Yael De Leon Paternal Grandmother Bridgett De Leon Social History Tobacco Use Types Packs/Day Years Used Date Smoking Tobacco: Never Smokeless Tobacco: Never Tobacco Cessation:Counseling Given: Not Answered Alcohol Use Standard Drinks/Week Comments Not Currently [...] place to sleep or slept in a [facility] (including now)? No 03/27/2024 [place] Depression Scale Answer Date Recorded [place] Depression Scale Total 8 12/07/2021 The thought [...] Orientation Straight 06/25/2021 1: 56 PM EST Last Filed Vital Signs Vital Sign Reading Time Taken Comments Blood Pressure 112/72 06/14/2024 10:10 AM EST Pulse 72 06/14/2024 10:10 AM EST Temperature 36 C (96.8 F) 06/14/2024 10:10 AM EST Respiratory Rate 16 11/30/2022 1:00 PM EDT Oxygen Saturation 100% 07/27/2022 9:43 AM EST Inhaled Oxygen Concentration - - Weight 61.4 kg (135 lb 5.8 oz) 06/14/2024 10:10 AM EST Height 174 cm (5' 8.5 ) 06/14/2024 10:10 AM EST Body Mass Index 20.28 06/14/2024 10:10 AM EST Plan of Treatment Health Maintenance Due Date Last Done Comments [facility]-/Child/Adol SDOH Screenings 2001 HPV Vaccines (1 - 3-dose series) 2016 [facility]-Chlamydia and Gonorrhea Screening 12/01/2023 11/30/2022, 11/30/2022, 07/15/2022, Additional history exists [id number] Vaccine ( season) 2024 [facility]- SDOH Screenings 09/27/2024 [facility]-Adult SDOH Screenings 09/27/2024 03/27/2024 [facility]-Influenza Vaccine (Season Ended) 2025 05/09/2013, 05/27/2010 [facility]-Depression Screening 06/14/2025 024, 06/14/2024, 12/07/2021, Additional history exists [facility]-Pap Smear 11/30/2025 11/30/2022 [facility]-DTaP,Tdap,and Td Vaccines (8 - Td or Tdap) 08/20/2031 08/20/2021, 04/04/2013, 12/05/2006, Additional history exists [facility]-Zoster Vaccines (1 of 2) 2051 08/13/2008, 06/21/2002 [facility]-RSV Vaccine: 60+ Years or (1 - 1-dose 75+ series) 2076 [facility]-Hepatitis B Vaccines Completed 002, 2001, 2001 [facility]-HIB Vaccines Completed 01/03/2003, 01/2002, 2001, Additional history exists [facility]-IPV Vaccines Completed 12/05/2006, 01/2002, 2001, Additional history exists [facility]-Pneumococcal Vaccine: Pediatrics (0 to 5 Years) and At-Risk Patients (6 to 49 Years) Aged Out 08/13/2008, 06/21/2002 No longer eligibl e based on patient's age to complete this topic [facility]-Varicella Vaccines Completed 08/13/2008, 2001 [facility]-HIV Screening Completed 04/30/2021 [facility]-Hepatitis C Screening Completed 04/30/2021 [facility]-Hepatitis A Vaccines Aged Out No longer eligible based on patient's age to complete this topic [facility]-Rotavirus Vaccines Aged Out No lo nger eligible based on patient's age to complete this topic Procedures Procedure Name Priority Date/Time Associated Diagnosis Comments US OUTSIDE IMAGES 11/10/2024 1:3 0 PM EDT US ABDOMEN OUTSIDE IMAGES 11/05/2024 9:48 AM EDT PAP TEST - CYTOLOGY Routine 11/30/2022 3 :09 PM EDT Pelvic and perineal pain CHLAMYDIA TRACHOMATIS DNA BY PCR Routine 11/30/2022 3:09 PM EDT Pelvic and perineal pain HIV 1/2 ANTIBODY/ANTIGEN SCREEN WITH REFLEX TO HIV I/II DIFFERENTIATION Routine 04/30/2021 8:23 PM EDT test positive HEPATITIS C ANTIBODY W/REFLEX TO HCV QUANT PCR Routine 04/30/2021 8:21 PM EDT test positive from Last 3 Months or Most Recently Relevant to Health Maintenance Results * US OUTSIDE IMAGES (11/10/2024 1:30 PM EDT) Anatomical Region Laterality Modality Ultrasound 11/10/2024 1:30 PM EDT us María Ibarra DO IMG US PROCEDURES Final Result * US ABDOMEN OUTSIDE IMAGES (11/05/2024 9:48 AM EDT) Anatomical Region Laterality Modality Ultrasound 11/05/2024 9:48 AM EDT us External Provider IMG US PROCEDURES Final Result * Chlamydia trachomatis DNA by PCR (11/30/2022 3:09 PM EDT) Chlamydia trachomatis DNA PCR Result Not Detected Not Detected 12/02/2022 9:37 AM EDT [facility] Swab Endocervical structure / Unknown Non-blood Collection / Unknown 11/30/2022 3:09 PM EDT 11/30/2022 4:07 PM EDT Narrative [facility] - 12/02/2022 9:37 AM EDT This test is performed by the Timeful m2000 instrument for Real Time PCR C. trachomatis and N. gonorrhea. This test is FDA approved for use with endocervical, vaginal, and urine specimens. This test is used for clinical purposes. It should not be regarded as invesigational or for research. The [facility] Clinical Microbiology [facility] is certified under the Clinical Laboratory Improvement Amendments of 1988 (CLIA-88) as qualified to perform high complexity clinical laboratory testing. us Rhea Ramos MD LAB MICROBIOLOGY - GENERAL ORDERABLES Final Result [facility] [address] [id number] * Pap Test (11/30/2022 3:09 PM EDT) Case Report Cytology Case: [id number] Authorizing Provider: Rhea Ramos MD Collected: 11/30/2022 1509 Ordering Location: Medical Office Building Received: 11/30/2022 [facility] Obstetrics and Gynecology First Screen: Shayy Gordon Specimen: ThinPrep Pap Test, Liquid-Based Cervical/Vaginal, CERVICAL/VAGINAL 12/06/2022 3:06 PM EDT [facility] Interpretation NEGATIVE FOR INTRAEPITHELIAL LESION OR MALIGNANCY 12/06/2022 3:06 PM EDT [facility] at 1506 EDT Specimen Adequacy Satisfactory for evaluation; endocervical/villanueva sformation zone component present. Slide imaged by the ThinPrep Imaging system and selected 22 corado reviewed then full manual screening. 12/06/2022 3:06 PM EDT [facility] Cervical cytology is a screening test primarily for squamous cancers and precursors and has associated false negative and positive results. New technologies such as liquid based sampling may decrease but will not eliminate all false negative results. Regular screening and follow-up of unexplained clinical signs and symptoms are recommended to minimize false negative results. Please see the ASCCP website (www.asccp.org)fo r followup recommendations. If HPV testing was requested, correlation with the results is suggested (please call Microbiology at [phone] for results). 12/06/2022 3:06 PM EDT [facility] Menstrual Status Cyclic 12/07/19 3:06 PM EDT [facility] Contraceptive History Not Applicable 12/06/2022 3:06 PM EDT [facility] Screening Type Routine Screen 2022 3:06 PM EDT [facility] High Risk? No 12/06/2022 3:06 PM EDT [facility] HPV Testing Requested? No HPV Testing Requested 12/06/2022 3:06 PM EDT [facility] Previous Cancer History No 12/06/2022 3:06 PM EDT [facility] Clinical Information R10.2 - Pelvic and perineal pain [ICD-10-CM] 12/06/2022 3:06 PM EDT [facility] Last Menstrual Period 10/25/2022 12/06/2022 3:06 PM EDT [facility] Swab Vaginal and cervical cytologic material / Unknown Non-blood Collection / Unknown 11/30/2022 3:09 PM EDT 11/30/2022 4:15 PM EDT us Rhea Ramos MD LAB CYTOLOGY ORDERABLES Fi nal Result Performing Organization Address City/[facility] Co de Phone Number [facility] [address] [place] [address] * HIV 1 & 2 Antibody/Antigen Screen (04/30/2021 8:23 PM EDT) [facility] HIV 1 & 2 Antibody/Anti gen Screen Nonreactive Nonreactive 04/30/2021 8:23 PM EDT [facility] Blood Venous blood specimen / Unknown 04/30/2021 3:09 PM EDT us Rhea Ramos MD LAB BLOOD ORDERABLES Final Result Performing Organization Address City/[facility]/ZIP Co de Phone Number [facility] [address] [place] [address] * Hepatitis C Antibody (04/30/2021 8:21 PM EDT) [facility] Hepatitis C Antibody Negative Negative 04/30/2021 8:21 PM EDT [facility] Blood Venous blood specimen / Unknown 04/30/2021 3:09 PM EDT us Rhea Ramos MD LAB BLOOD ORDERABLES Final Result [facility] [address] [place] [address] from Last 3 Months or Most Recently Relevant to Health Maintenance Insurance MEDICAID Advance Directives * Full Code (Latest Code Status on File) Date Activated Date Inactivated Comments 10/23/2021 12:34 PM 10/26/2021 4:44 PM Question Answer Comments Patient has decision-making capacity? Yes Care Teams Java Technical Manager Relationship Specialty Start Date End Date Krysten Burt MD [address] [facility] [address] [place] [id number] PCP - General Adolescent Medicine 12/29/22
[2025-01-11 13:28] VITALS: BMI 24.7
--- NOTE | 2025-01-11 13:32 | US_ITS ---
PROCEDURE INFORMATION: Exam: US Biophysical Profile Without Non-Stress Test Exam date and time: 01/11/2025 2:51 PM Age: 24 years old Clinical indication: Other: Decreased movement; TECHNIQUE: Imaging protocol: US biophysical profile without non-stress testing. COMPARISON: US OB /MATERNAL DETAIL 10/24/2024 12:46 PM FINDINGS: Gestation: Single live intrauterine gestation with estimated gestational age of approximately 31 weeks 3 days based on last menstrual period. heart rate: 152 bpm. heart rate 152 bpm. presentation and position: presentation is cephalic. Placenta: Placenta is anterior Amniotic fluid (Qualitative): 2/2 Amniotic fluid index: JOSE is 7.97 cm. Amniotic fluid index 8 cm. BIOPHYSICAL PROFILE: breathing (BPP): 2 /2. 2/2 gross body movement (BPP): 2 /2. 2/2 tone (BPP): 2 /2. 2/2 Amniotic fluid (BPP): 2 /2 Biophysical profile score (BPP): 8 /8 BIOMETRY: Estimated due date (AUA): Estimated due date 03-12-25 by last menstrual period. MATERNAL ANATOMY: Cervix: Cervical length measures 4.17 cm. Cervical length of approximately 4.2 cm. Brief anatomic survey: Fluid within the urinary bladder and stomach. No perinephric fluid collections or hydronephrosis. Three-vessel cord. 4 chambered heart. Profile unremarkable. Other findings: Biophysical profile-03/15. IMPRESSION: 1. Single live intrauterine gestation with estimated gestational age of approximately 31 weeks 3 days based on last menstrual period. 2. heart rate 152 bpm. 3. Biophysical profile-03/15. 4. Amniotic fluid index 8 cm.
[2025-01-11 13:35] VITALS: BP 115/71; PULSE 98; RESP 16; TEMP 36.8; O2SAT 100
[2025-01-11 13:45] VITALS: BP 120/69
[2025-01-11 14:00] VITALS: BP 117/72
[2025-01-11 14:15] VITALS: BP 123/71
[2025-01-11] MEDS: DEXTROSE 5%-LACTATED RINGERS 1,000 ML 999 ML IV (14:29)
[2025-01-11 14:30] VITALS: BP 107/63
[2025-01-11 14:45] VITALS: BP 105/65
[2025-01-11 14:57] VITALS: BMI 24.7
[2025-01-11 14:59] LABS: Basophils # 0.1 K/mm3 (0-0.2); Basophils % 0.5 % (0.1-2.0); Eosinophils % 0.3 % (0.1-12.0); Hematocrit 34.2 % (37.0-47.0); Hemoglobin 11.3 g/dL (12.2-16.2); Immature Granulocytes # 0.07 10^3uL; Immature Granulocytes % 0.7 %; Lymphocytes # 2.4 K/mm3 (0.7-4.5); Mean Corpuscular Hemoglobin 28.8 pg (27.0-31.2); Mean Corpuscular Volume 87.2 fl (81-99); Mean Platelet Volume 10.9 fl (7.4-10.4); Monocytes # 0.9 K/mm3 (0.1-1.0); Monocytes % 8.8 % (1.7-9.3); Neutrophils # 6.6 K/mm3 (1.8-7.8); Neutrophils % 65.7 % (37.0-80.0); Nucleated Red Blood Cells # 0 10^3/uL; Nucleated Red Blood Cells % 0 %; Platelet Count 205 K/mm3 (142-424); Red Blood Count 3.92 M/mm3 (4.20-5.40); Red Cell Distribution Width-SD 37.9 fL; White Blood Count 10.1 K/mm3 (4.8-10.8)
[2025-01-11 15:04] LABS: Alanine Aminotransferase 14 U/L (12-78); Albumin/Globulin Ratio 1.3 (1.1-1.8); Alkaline Phosphatase 93 U/L (38-126); Anion Gap 7.6 mEq/L (5-15); Aspartate Amino Transferase 24 U/L (14-36); Bilirubin,Total 0.5 mg/dl (0.2-1.3); Blood Urea Nitrogen 7 mg/dl (7-17); Calcium 8.7 mg/dl (8.4-10.2); Carbon Dioxide 26 mmol/L (22.0-30.0); Chloride 104 mmol/L (98-107); Creatinine Clearance Estimated 165 mL/min (50-200); Estimated Glomerular Filt Rate 124 ml/min (>60); GFR (African American) 150 ML/MIN (>60); Globulin 3.2 g/dL (1.3-3.2); Glucose 75 mg/dl (74-100); Potassium 3.6 mmoL/L (3.5-5.1); Sodium 134 mmol/L (136-145); Total Protein,Serum 7.2 g/dl (6.3-8.2)
[2025-01-11 15:45] LABS: Fetal Fibronectin (Rapid) Negative (Negative)
== END 2025-01-11 15:59 | disposition home or self-care (01) ==
LOC: OBOUT 13:24 → OB 13:25
PROVIDERS: Obstetrics & Gynecology; Visit Provider Nurse Practitioner Obstetrics & Gynecology
DX: O36.8130 Decreased fetal movements, third trimester, not applicable or unspecified (principal); O26.893 Other specified pregnancy related conditions, third trimester; R25.2 Cramp and spasm; Z3A.31 31 weeks gestation of pregnancy
CPT/HCPCS: 59025; 76819; 80053; 82731; 85025; 96360; 99212; G0463; J7121

== ENCOUNTER 2025-01-30 12:58 | Outpatient (CLI) | payer OTHER, SELFPAY ==
--- NOTE | 2025-01-30 13:00 | US_ITS ---
PROCEDURE: US OB BIOPHYSICAL PROFILE CLINICAL INDICATION: Needs LEXUS for SGA COMPARISON: US US OB TRANSVAGINAL from 10/03/2024 US US OB /MATERNAL DETAIL from 10/24/2024 US US OB BIOPHYSICAL PROFILE from 01/11/2025 FINDINGS: Transabdominal sonographic images of the uterus were obtained. From her established due date she is 34weeks 1day. The following parameters are obtained: Viable Fetus in the cephalic presentation with and anterior placenta grade 1-2. There continues to be an area inferior to the placenta that could be a small collection of old blood or a current placental Weiss. It has decreased in size since her 20 week ultrasound. Average ultrasound age is 33weeks 1day Estimated weight 1,944g, 4 lb 5 oz The cervix measures 3.60 cm Measurements: heart Rate = 152bpm BPD = 34weeks 0 days, 44 percentile HC = 34weeks 2days, 18 percentile AC = 32weeks 0 days, 5 percentile FL = 32weeks 0 days, 3 percentile HC/AC is 1.1 FL/BPD is 0.73 FL/AC is 0.22 6 percentile Amniotic fluid index: 11.48cm, MVP 3.93 cm Qualitative AFV:2 Breathing movements: 2 Gross Body Movements: 2 Tone: 2 Biophysical profile score: 8 Doppler evaluation of the umbilical artery: SD ratio: 2.26-3.8 Resistive index: 0.69 No obvious anomalies evident.Kidneys, profile, bladder, stomach, four-chamber heart, three-vessel cord appear normal. IMPRESSION: 1. Viable fetus in the cephalic presentation with an anterior placenta grade 1-2. There continues to be a small area of blood collection in the inferior placenta that measures 5.4 cm x 1.2 cm. It has decreased in size since her 20 week ultrasound. 2. Amniotic fluid index 11.48 cm, MVP 3.93 cm. 3. The fetus is small for gestational age and measures 6th percentile. The abdominal circumference is 2 weeks behind on its growth. The head is normal in size indicating asymmetric growth restriction. Suggest continued close observation. 4. Biophysical profile is 8/8 with good breathing movement and movement seen. 5. SD ratio is normal 2.26-3.8. 6. Limited anatomical scan appears normal. Dictated by: Ulices Gomez MD 01/31/2025 03:53 Ulices Gomez MD in OV 01/31/2025 03:53
--- OUTSIDE RECORDS SUMMARY | 2025-01-30 13:02 | XMS_ITS | Encounter Summary ---
Author Organization [employer] i[employer] Address [address] [place] [address] Care Team Providers Care Clothing Room Supervisor Name Role Phone Unavailable Primary Care Provider Unavailabl e Encounter Details Date Type Department Care Team (Late st Contact Info) Description 04/10/2021 Transcribed Document [facility] [address] [place] [address] Herbie Srivastava MD [address] [place] [address] Dept. of Emergency Medicine [place] [id number] Social History Tobacco Use Types Packs/Day Years [...] 9:09 AM EDT Electronically signed by Chana [facility] Conversion Customer Support Consultant Cerner at 11/21/2022 11:49 PM CDT documented in this encounter Plan of Treatment Not on file documented as of this encounter Visit Diagnoses Not on filedocumented in this encounter
--- OUTSIDE RECORDS SUMMARY | 2025-01-30 13:02 | XMS_ITS | Encounter Summary ---
Author Organization [employer] Address [address] [place] [address] Care Team Providers Care Sports Announcer Name Role Phone Unavailable Primary Care Provider Unavailabl e Encounter Details Date Type Department Care Team (Late st Contact Info) Description 04/11/2021 Transcribed Document [facility] [place] Family Medicine [address] [place] [address] ProviderJuan Carlos MD [address] [place] [address] Social History Tobacco Use Types [...]
--- OUTSIDE RECORDS SUMMARY | 2025-01-30 13:02 | XMS_ITS | Encounter Summary ---
Author Organization [employer] In iatives Address [address] [place] [address] Care Team Providers Care Instrument Repairer Helper Name Role Phone Unavailable Primary Care Provider Unavailabl e Encounter Details Date Type Department Care Team (Late st Contact Info) Description 04/10/2021 Transcribed Document [facility] Family Medicine [address] [place] [address] ProviderJuan Carlos MD [address] [place], [place] [id number] Social History Tobacco Use Types Packs/Day Years [...] - 04/10/2021 6:46 EDT Electronically signed by Brian Zayas Conversion Communication Center Coordinator Cerner at 11/21/2022 11:38 PM CDT documented in this encounter Plan of Treatment Not on file documented as of this encounter Visit Diagnoses Not on filedocumented in this encounter
--- OUTSIDE RECORDS SUMMARY | 2025-01-30 13:02 | XMS_ITS | Referral Summary ---
Author Organization [employer] In iatives Address [address] [place] [address] Care Team Providers Care Director Investment Banking Name Role Phone Unavailable Primary Care Provider [...]
--- OUTSIDE RECORDS SUMMARY | 2025-01-30 13:02 | XMS_ITS | Encounter Summary ---
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 Denies any abdominal pain or [...] COVID-19: What Your Test Results Mean - [facility]. Follow up with: Follow up with primary care provider Within 2 to 3 days Call for follow up appointment. Return to the ER for any new or worsening symptoms as discussed, especially difficulty breathing or low O2 sat below 90%. Drink plenty of fluids and rest. You may take Tylenol as needed. Follow-up with your POLICE SHIFT COMMANDER.; , Follow up with primary care provider Within 2 to 3 days Call for follow up appointment. Return to the ER for any new or worsening symptoms as discussed, especially difficulty breathing or low O2 sat below 90%. Drink plenty of fluids and rest. You may take Tylenol as needed. Follow-up with your POLICE SHIFT COMMANDER.. Counseled: Patient, Regarding diagnosis, Regarding diagnostic results, Regarding treatment plan, Patient indicated understanding of instructions. documented in this encounter Plan of Treatment Not on file documented as of this encounter Visit Diagnoses Not on filedocumented in this encounter
--- OUTSIDE RECORDS SUMMARY | 2025-01-30 13:02 | XMS_ITS | Encounter Summary ---
Author Organization [employer] i[employer] Address [address] [place] [address] Care Team Providers Care Naturopathic Doctor Name Role Phone Unavailable Primary Care Provider Unavailabl e Encounter Details Date Type Department Care Team (Late st Contact Info) Description 04/11/2021 Transcribed Document [facility] [place] [facility] [place] [address] ProviderJuan Carlos MD [facility] [place] [address] Social History Tobacco Use Types [...] : 3 - Urgent Tracking Group : [facility] ED [facility] Harleen Brown RN - 04/11/2021 10:10 EDT [...] caused by 2019 novel coronavirus (SNOMED CT :[id number] ) Name of Problem: Disease caused by 2019 novel coronavirus ; Recorder: SYSTEM, SYSTEM; Confirmation: Confirmed ; Classification: Medical ; Code: [id number] ; Last Updated: 04/07/2021 22:55 EDT ; Life Cycle Date: 04/07/2021 ; Life Cycle Status: Active ; Vocabulary: SNOMED CT ; Comments: 04/07/2021 22:55 - SYSTEM, SYSTEM Problem added by a rule: [id number]. Diagnoses(Active) Vaginal bleeding Date: 04/11/2021 ; Diagnosis Type: Reason For Visit ; Confirmation: Complaint of ; Clinical Dx: Vaginal bleeding ; Classification: Medical ; Clinical Service: Non-Specified ; Code: PNED ; Probability: 0 ; Diagnosis Code: [id number] ED Height and Weight Height Source : Measured Height Entry Format : [place] Height, Feet : 5 ft(Converted to: 152 cm, 60 Inch) Height, Inches : 7 Inch(Converted to: 0 ft 7 Inch, 17.78 cm) Clinical Height : 170.18 cm Weight Source, ED : Standing scale Weight Entry Format : [place] Weight, Pounds : 128 lb Clinical Dosing Weight : 58.18 kg Body Surface Area (BSA) : 1.67 m2 Body Mass Index : 20.1 kg/m2 [place] Body Weight (IBW) : 61.16 kg Harleen Brown RN - 04/11/2021 10:10 EDT documented in this encounter Plan of Treatment Not on file documented as of this encounter Visit Diagnoses Not on filedocumented in this encounter
--- OUTSIDE RECORDS SUMMARY | 2025-01-30 13:02 | XMS_ITS | Encounter Summary ---
Author Organization [employer] iatives Address [address] [place] [address] Care Team Providers Care Mitten Sewer Name Role Phone Unavailable Primary Care Provider Unavailabl e Encounter Details Date Type Department Care Team (Late st Contact Info) Description 04/07/2021 Transcribed Document [facility] [place] Family Medicine [facility] [place] [place] [address] ProviderJuan Carlos MD [address] [place] [address] Social History Tobacco Use Types [...] 04/08/2021 0:16 EDT by MARIANA ESTEVES RN ED Quick Look Assessment Level of Consciousness : Alert MARIANA ESTEVES RN - 04/08/2021 0:16 EDT ED General-Functional Assess Information Obtained From : Patient Preferred Communication Mode : Verbal Communication Barrier : None Primary Language : Polish General Information Comment : seen by provider [...] Social History (As Of: 04/08/2021 00:17:06 EDT) Electronically signed by Brian Zayas Conversion Business Performance Specialist Cerner at 11/21/2022 11:36 PM CDT documented in this encounter Plan of Treatment Not on file documented as of this encounter Visit Diagnoses Not on filedocumented in this encounter
--- OUTSIDE RECORDS SUMMARY | 2025-01-30 13:02 | XMS_ITS | Encounter Summary ---
Author Organization [employer] i[employer] Address [address] [place] [address] Care Team Providers Care Psychiatric Np Name Role Phone Unavailable Primary Care Provider Unavailabl e Encounter Details Date Type Department Care Team (Late st Contact Info) Description 04/11/2021 Transcribed Document [facility] [place] Family Medicine [facility] [place] [address] ProviderJuan Carlos MD [address] [place] [address] Social History Tobacco Use Types [...] Carlos ProviderMD - 04/11/2021 2:23 [place] [address] LIBERTAD WEBBNE :2000 Visit Time:04/11/2021 Your Visit [...] pelvic rest as discussed. Follow-up with your TRAFFIC II MANAGER in 2 days for repeat assessment. Allergies [...] provider. Document Revised: 08/31/2018 Document Reviewed: 10/21/2017 [employer] Patient Education ?? 2020 [employer] Vaginal Bleeding During , First Trimester [...] this is safe. General instructions ??? Take lrel-wrf-aahxaqy and prescription medicines only as told by [...] provider. Document Revised: 11/13/2019 Document Reviewed: 10/27/2017 [employer] Patient Education ?? 2019 [employer] Subchorionic Hematoma A subchorionic hematoma is [...] provider. Document Revised: 07/07/2018 Document Reviewed: 09/20/2017 [employer] Patient Education ?? 2020 [employer] Emergency Awareness and Preventative Care STROKE [...] Assistance with quitting is available by contacting 1-606-ZNWZNOW. This is a free resource providing counseling, [...] was given the opportunity to ask questions. Patient/Assorter Name: Patient/Assorter Signature: Relationship to Patient: Clinician/Hospital Assorter Signature: Please Provide a Telephone Number Where You Can Be Reached: Is it Permissible To Leave a Message? Date: Electronically signed by Chana, [facility] Conversion Motorman/Woman Cerner at 11/21/2022 11:34 PM CDT documented in this encounter Plan of Treatment Not on file documented as of this encounter Visit Diagnoses Not on filedocumented in this encounter
--- OUTSIDE RECORDS SUMMARY | 2025-01-30 13:02 | XMS_ITS | Encounter Summary ---
Author Organization [employer] In i[employer] Address [address] [place] [address] Care Team Providers Care Systems Analyst Name Role Phone Unavailable Primary Care Provider Unavailabl e Encounter Details Date Type Department Care Team (Late st Contact Info) Description 04/11/2021 Transcribed Document [facility] [place] Family Medicine [address] [place] [address] ProviderJuan Carlos MD [address] [place], [place] [id number] Social History Tobacco Use Types Packs/Day Years [...]
--- OUTSIDE RECORDS SUMMARY | 2025-01-30 13:02 | XMS_ITS | Encounter Summary ---
Author Organization [employer] Address [address] [place] [address] Care Team Providers Care Air Value Tester Name Role Phone Unavailable Primary Care Provider Unavailabl e Encounter Details Date Type Department Care Team (Late st Contact Info) Description 04/10/2021 Transcribed Document [facility] [place] [facility] [place] [address] ProviderJuan Carlos MD [address] [place] [address] Social History Tobacco Use Types [...] Cavazos MD - 04/10/2021 8:46 [place] [address] LIBERTAD D ELEON :2000 Visit Time:04/10/2021 Your Visit Summary Your [...] High Risk [phone] Where: [address] [place] [phone] [facility] (1) Follow Up with For a clinic referral service , just dial: [phone] (WELL) Our experts will provide you with [...] water are not available, use alcohol-based hand checker in. ??? Avoid touching your mouth, face, eyes, [...] pump parts after expressing milk. Follow the refrigerating engineer head's instructions to clean and disinfect all pump [...] (CDC): www.cdc.gov/coronavirus/2019-ncov/ ??? World Health Organization (WHO): www.who.int/news-room/q-a-detail/m-w-oc-bxcdo-40-xhzwsajuf-kownwiljdi-yzf-jvmu stfeeding ??? [place] [employer]nec[employer] (ACOG): www.acog.org/patient-resources/faqs//vcyfomikotl-vpazxvzaw-jry-breast feeding Questions to ask your health care [...] provider. Document Revised: 07/25/2020 Document Reviewed: 07/25/2020 [employer] Patient Education ?? 2020 [employer] 10 Things You Can Do to [...] clean your hands with an alcohol-based hand checker in that contains at least 60% alcohol. 8. [...] Reviewed: 07/10/2020 [employer] Patient Education ?? 2020 [employer] Emergency Awareness and Preventative Care STROKE [...] Assistance with quitting is available by contacting 2-386-ABCYMPOWER MobileNOW. This is a free resource providing counseling, [...] was given the opportunity to ask questions. Patient/Protozoologist Name: Patient/Protozoologist Signature: Relationship to Patient: Clinician/Hospital Protozoologist Signature: Please Provide a Telephone Number Where You Can Be Reached: Is it Permissible To Leave a Message? Date: documented in this encounter Plan of Treatment Not on file documented as of this encounter Visit Diagnoses Not on filedocumented in this encounter
--- OUTSIDE RECORDS SUMMARY | 2025-01-30 13:02 | XMS_ITS | Encounter Summary ---
Author Organization [employer] In iatives Address [address] [place] [address] Care Team Providers Care Security Systems Specialist Name Role Phone Unavailable Primary Care Provider Unavailabl e Encounter Details Date Type Department Care Team (Late st Contact Info) Description 04/07/2021 Transcribed Document [facility] [place] [address] [place] [address] ProviderJuan Carlos MD [address] [place] [address] Social History Tobacco Use Types [...]
--- OUTSIDE RECORDS SUMMARY | 2025-01-30 13:02 | XMS_ITS | Encounter Summary ---
Author Organization [facility] In iatives Address [address] [place] [address] Care Team Providers Care Supervisor Dry Paste Name Role Phone Unavailable Primary Care Provider Unavailabl e Encounter Details Date Type Department Care Team (Late st Contact Info) Description 04/07/2021 Transcribed Document [facility] [place] [address] [place] [address] ProviderJuan Carlos MD [address] [place] [address] Social History Tobacco Use Types [...] Historical ProviderMD - 04/07/2021 7:59 PM CDT [place] Suicide Severity Rating Scale (C-SSRS) Entered On: 04/08/2021 0:17 EDT Performed On: 04/08/2021 0:16 EDT by MARIANA ESTEVES RN [place] Suicide Severity Rating Scale (C-SSRS) CSSRS Past [...]
--- OUTSIDE RECORDS SUMMARY | 2025-01-30 13:02 | XMS_ITS | Encounter Summary ---
Author Organization [employer] In i[employer] Address [address] [place] [address] Care Team Providers Care Gis Mapping Technician Name Role Phone Unavailable Primary Care Provider Unavailabl e Encounter Details Date Type Department Care Team (Late st Contact Info) Description 04/10/2021 Transcribed Document [facility] [place] [address] [place] [address] ProviderJuan Carlos MD [address] [place], [place] [phone] Social History Tobacco Use Types Packs/Day Years [...] Historical ProviderMD - 04/10/2021 5:27 AM CDT [place] Suicide Severity Rating Scale (C-SSRS) Entered On: 04/10/2021 6:47 EDT Performed On: 04/10/2021 6:46 EDT by Nasreen Aldridge RN-PATIENT CARE BEDSIDE NON-EXEMPT [place] Suicide Severity Rating Scale (C-SSRS) CSSRS Past [...]
--- OUTSIDE RECORDS SUMMARY | 2025-01-30 13:02 | XMS_ITS | Encounter Summary ---
Author Organization [employer] iatives Address [address] [place] [address] Care Team Providers Care Motor Checker Name Role Phone Unavailable Primary Care Provider Unavailabl e Encounter Details Date Type Department Care Team (Late st Contact Info) Description 04/11/2021 Transcribed Document [facility] [place] Family Medicine [facility] [place] [address] ProviderJuan Carlos MD [address] [place] [address] Social History Tobacco Use Types [...] Communication Barrier : None Primary Language : Cambodian Any Spiritual/Cultural Needs or Requests : No [...]
--- OUTSIDE RECORDS SUMMARY | 2025-01-30 13:02 | XMS_ITS | Encounter Summary ---
Author Organization [employer] In i[employer] Address [address] [place] [address] Care Team Providers Care Senior Director Insight Name Role Phone Unavailable Primary Care Provider Unavailabl e Encounter Details Date Type Department Care Team (Late st Contact Info) Description 04/11/2021 Transcribed Document [facility] [place] Medicine [address] [place] [address] ProviderJuan Carlos MD [address] [place], [place] [phone] Social History Tobacco Use Types Packs/Day Years [...] Historical ProviderMD - 04/11/2021 9:48 AM CDT [place] Suicide Severity Rating Scale (C-SSRS) Entered On: 04/11/2021 12:05 EDT Performed On: 04/11/2021 12:04 EDT by Lacey Chau RN [place] Suicide Severity Rating Scale (C-SSRS) CSSRS Past [...]
--- OUTSIDE RECORDS SUMMARY | 2025-01-30 13:02 | XMS_ITS | Encounter Summary ---
Author Organization [employer] iatives Address [address] [place] [address] Care Team Providers Care Medicaid Billing Specialist Name Role Phone Unavailable Primary Care Provider Unavailabl e Encounter Details Date Type Department Care Team (Late st Contact Info) Description 04/11/2021 Transcribed Document [facility] [place] [facility] [address] ProviderJuan Carlos MD [facility] [place] [address] Social History Tobacco Use Types [...] 04/11/2021 14:35 EDT Electronically signed by Chana [facility] Conversion Ticket Marker Cerner at 11/21/2022 11:36 PM CDT documented in this encounter Plan of Treatment Not on file documented as of this encounter Visit Diagnoses Not on filedocumented in this encounter
--- OUTSIDE RECORDS SUMMARY | 2025-01-30 13:02 | XMS_ITS | Encounter Summary ---
Author Organization [employer] Address [address] [place] [address] Care Team Providers Care Technical Project Manager Name Role Phone Unavailable Primary Care Provider Unavailabl e Encounter Details Date Type Department Care Team (Late st Contact Info) Description 04/11/2021 Transcribed Document [facility] [place] [address] [place] [address] ProviderJuan Carlos MD [address] [place] [address] Social History Tobacco Use Types [...]
--- OUTSIDE RECORDS SUMMARY | 2025-01-30 13:02 | XMS_ITS | Encounter Summary ---
Author Organization [employer] Address [address] [place] [address] Care Team Providers Care Honey Liquefier Name Role Phone Unavailable Primary Care Provider Unavailabl e Encounter Details Date Type Department Care Team (Late st Contact Info) Description 04/07/2021 Transcribed Document [facility] [place] [facility] [place] [address] ProviderJuan Carlos MD [address] [place] [address] Social History Tobacco Use Types [...] Estimated Onset Date: Unspecified ; Created By: MRAIANA ESTEVES RN; Reaction Status: Active ; Category: [...] PNED ; Probability: 0 ; Diagnosis Code: [id number] ED Height and Weight Height Source : Measured Height Entry Format : [place] Height, Feet : 5 ft(Converted to: 152 cm, 60 Inch) Height, Inches : 7 Inch(Converted to: 0 ft 7 Inch, 17.78 cm) Clinical Height : 170.18 cm Weight Source, ED : Standing scale Weight Entry Format : [place] Weight, Pounds : 128 lb Clinical Dosing Weight : 58.18 kg Body Surface Area (BSA) : 1.67 m2 Body Mass Index : 20.1 kg/m2 [place] Body Weight (IBW) : 61.16 kg MARIANA ESTEVES RN - 04/07/2021 21:15 EDT documented in this encounter Plan of Treatment Not on file documented as of this encounter Visit Diagnoses Not on filedocumented in this encounter
--- OUTSIDE RECORDS SUMMARY | 2025-01-30 13:02 | XMS_ITS | Encounter Summary ---
Author Organization [employer] i[employer] Address [address] [place] [address] Care Team Providers Care Distribution Center Supervisor Name Role Phone Unavailable Primary Care Provider Unavailabl e Encounter Details Date Type Department Care Team (Late st Contact Info) Description 04/11/2021 Transcribed Document [facility] [place] [facility] [place] [address] ProviderJuan Carlos MD [address] [place] [address] Social History Tobacco Use Types [...] Patient reports brownish-red vaginal spotting that is equipment installer than her menstrual period. This began yesterday and has continued today. She denies any abdominal pain or pelvic cramping. Also denies fever, nausea/vomiting, vaginal discharge. Patient tested positive for COVID-19 4 days ago and yesterday received the monoclonal antibody infusion. She currently follows with an ACETONE RECOVERY WORKER at [facility], however is in the process of transitioning [...] April 11, 2021 14:10 EDT Encounter info: [id number], BEREKET Diaz [facility], Emergency Room, 04/11/2021 - 04/11/2021 . [...] discussed strict pelvic rest and follow-up with ACETONE RECOVERY WORKER. Patient voices understanding and agreement with plan. [...] pelvic rest as discussed. Follow-up with your ACETONE RECOVERY WORKER in 2 days for repeat assessment., Follow up with primary care provider Within 2 to 3 days Call for follow up appointment. Return to the ER for any new or worsening symptoms as discussed, especially fever, persistent pelvic pain, vaginal bleeding greater than 2 pads/hour. Recommend pelvic rest as discussed. Follow-up with your ACETONE RECOVERY WORKER in 2 days for repeat assessment., Follow up with primary care provider Within 2 to 3 days Call for follow up appointment. Return to the ER for any new or worsening symptoms as discussed, especially fever, persistent pelvic pain, vaginal bleeding greater than 2 pads/hour. Recommend pelvic rest as discussed. Follow-up with your ACETONE RECOVERY WORKER in 2 days for repeat assessment.. Counseled: Patient, Regarding diagnosis, Regarding diagnostic results, Regarding treatment plan, Patient indicated understanding of instructions. documented in this encounter Plan of Treatment Not on file documented as of this encounter Visit Diagnoses Not on filedocumented in this encounter
--- OUTSIDE RECORDS SUMMARY | 2025-01-30 13:02 | XMS_ITS | Clinical Summary ---
Author Organization [employer] i[employer] Address [address] [place] [address] Care Team Providers Care Mechanical Car Checker Name Role Phone Unavailable Primary Care [...]
--- OUTSIDE RECORDS SUMMARY | 2025-01-30 13:02 | XMS_ITS | Encounter Summary ---
Author Organization [employer] In i[employer] Address [address] [place] [address] Care Team Providers Care Last Dipper Name Role Phone Unavailable Primary Care Provider Unavailabl e Encounter Details Date Type Department Care Team (Late st Contact Info) Description 04/07/[address] [facility] [place] [address] [place] [address] ProviderJuan Carlos MD [address] [place] [address] Social History Tobacco Use Types [...] 11:58 PM CDT Electronically signed by Chana [facility] Conversion Architectural Representative Cerner at 11/21/2022 11:36 PM CDT documented in this encounter Plan of Treatment Not on file documented as of this encounter Visit Diagnoses Not on filedocumented in this encounter
--- OUTSIDE RECORDS SUMMARY | 2025-01-30 13:02 | XMS_ITS | Encounter Summary ---
Author Organization [employer] i[employer] Address [address] [place] [address] Care Team Providers Care Drafter Cartographic Name Role Phone Unavailable Primary Care Provider Unavailabl e Encounter Details Date Type Department Care Team (Late st Contact Info) Description 04/10/2021 Transcribed Document [facility] [place] [facility] [place] [address] ProviderJuan Carlos MD [facility] [place] [address] Social History Tobacco Use [...]
--- OUTSIDE RECORDS SUMMARY | 2025-01-30 13:02 | XMS_ITS | Encounter Summary ---
Author Organization [employer] Address [address] [place] [address] Care Team Providers Care Squeegeer And Former Name Role Phone Unavailable Primary Care Provider Unavailabl e Encounter Details Date Type Department Care Team (Late st Contact Info) Description 04/11/2021 Transcribed Document [facility] [place] Family Medicine [address] [place] [address] ProviderJuan Carlos MD [address] [place] [address] Social History Tobacco Use Types [...] 12:12 PM CDT Electronically signed by Chana [facility] Conversion Timber Management Assistant Cerner at 11/21/2022 11:35 PM CDT documented in this encounter Plan of Treatment Not on file documented as of this encounter Visit Diagnoses Not on filedocumented in this encounter
--- OUTSIDE RECORDS SUMMARY | 2025-01-30 13:03 | XMS_ITS | Encounter Summary ---
Author Organization [employer] i[employer] Address [address] [place] [address] Care Team Providers Care Machine Packaging Technician Name Role Phone Unavailable Primary Care Provider Unavailabl e Encounter Details Date Type Department Care Team (Late st Contact Info) Description 04/08/2021 Transcribed Document [facility] [place] Family Medicine [facility] [place] [address] ProviderJuan Carlos MD [address] [place] [address] Social History Tobacco Use Types [...]
--- OUTSIDE RECORDS SUMMARY | 2025-01-30 13:03 | XMS_ITS | Encounter Summary ---
Author Organization [employer] iatives Address [address] [place] [address] Care Team Providers Care Order Booker Name Role Phone Unavailable Primary Care Provider Unavailabl e Encounter Details Date Type Department Care Team (Late st Contact Info) Description 04/10/2021 Transcribed Document [facility] [place] [facility] [place] [address] ProviderJuan Carlos MD [address] [place] [address] Social History Tobacco Use Types [...] Carlos ProviderMD - 04/10/2021 8:45 [place] [address] LIBERTAD DE LEON :2000 Visit Time:04/10/2021 Your [...] High Risk [phone] Where: [address] [place] [id number] [facility] (1) Follow Up with For a clinic referral service , just dial: [phone] (WELL) Our experts will provide you with [...] water are not available, use alcohol-based hand hospice massage therapist. ??? Avoid touching your mouth, face, eyes, [...] pump parts after expressing milk. Follow the receptionist clerk's instructions to clean and disinfect all pump [...] (CDC): www.cdc.gov/coronavirus/2019-ncov/ ??? World Health Organization (WHO): www.who.int/news-room/q-a-detail/d-u-nv-gkhhw-19-dkshsodgg-xvaxzduejo-kwm-vfqb stfeeding ??? [place] [employer] Obstetric[employer] and Gynecologists (ACOG): www.acog.org/patient-resources/faqs//ojkenloatuv-rgmzrayoi-ezg-breast feeding Questions to ask your health care [...] provider. Document Revised: 07/25/2020 Document Reviewed: 07/25/2020 [employer] Patient Education ?? 2020 [employer] Inc. 10 Things You Can Do to [...] clean your hands with an alcohol-based hand hospice massage therapist that contains at least 60% alcohol. 8. [...] Reviewed: 07/10/2020 Elsevier Patient Education ?? 2020 [employer] Inc. Emergency Awareness and Preventative Care STROKE [...] Assistance with quitting is available by contacting 4-290-WLSXRainier SoftwareNOW. This is a free resource providing counseling, [...] was given the opportunity to ask questions. Patient/Production Cell Leader Name: Patient/Production Cell Leader Signature: Relationship to Patient: Clinician/Hospital Production Cell Leader Signature: Please Provide a Telephone Number Where You Can Be Reached: Is it Permissible To Leave a Message? Date: documented in this encounter Plan of Treatment Not on file documented as of this encounter Visit Diagnoses Not on filedocumented in this encounter
--- OUTSIDE RECORDS SUMMARY | 2025-01-30 13:03 | XMS_ITS | Encounter Summary ---
Author Organization [employer]atives Address [address] [place] [address] Care Team Providers Care Sales/Marketing Name Role Phone Unavailable Primary Care Provider Unavailabl e Encounter Details Date Type Department Care Team (Late st Contact Info) Description 04/10/2021 Transcribed Document [facility] [place] [facility] [place] [address] ProviderJuan Carlos MD [address] [place] [address] Social History Tobacco Use Types [...] Communication Barrier : None Primary Language : Italian Any Spiritual/Cultural Needs or Requests : No [...] 04/10/2021 6:46 EDT Electronically signed by Chana [facility] Conversion Foreign Food Cook Specialty Cerner at 11/21/2022 11:44 PM CDT documented in this encounter Plan of Treatment Not on file documented as of this encounter Visit Diagnoses Not on filedocumented in this encounter
--- OUTSIDE RECORDS SUMMARY | 2025-01-30 13:03 | XMS_ITS | Encounter Summary ---
Author Organization [facility] [employer] Address [address] [place] [address] Care Team Providers Care Assembler Dc Field Ring Name Role Phone Unavailable Primary Care Provider Unavailabl e Encounter Details Date Type Department Care Team (Late st Contact Info) Description 04/10/2021 Transcribed Document [facility] [place] [facility] [place] [address] ProviderJuan Carlos MD [address] [place] [address] Social History Tobacco Use Types [...] EDT DCP GENERIC CODE Tracking Group : [facility] Tracking Acuity : 3 - Urgent [...] caused by 2019 novel coronavirus (SNOMED CT :[id number] ) Name of Problem: Disease caused by 2019 novel coronavirus ; Recorder: SYSTEM, SYSTEM; Confirmation: Confirmed ; Classification: Medical ; Code: [id number] ; Last Updated: 04/07/2021 22:55 EDT ; Life Cycle Date: 04/07/2021 ; Life Cycle Status: Active ; Vocabulary: SNOMED CT ; Comments: 04/07/2021 22:55 - SYSTEM, SYSTEM Problem added by a rule: [id number]. Diagnoses(Active) Medication administration Date: 04/10/2021 ; Diagnosis Type: Reason For Visit ; Confirmation: Complaint of ; Clinical Dx: Medication administration ; Classification: Medical ; Clinical Service: Emergency medicine ; Code: PNED ; Probability: 0 ; Diagnosis Code: [id number] ED Height and Weight Height Source : Measured Height Entry Format : [place] Height, Feet : 5 ft(Converted to: 152 cm, 60 Inch) Height, Inches : 7 Inch(Converted to: 0 ft 7 Inch, 17.78 cm) Clinical Height : 170.18 cm Weight Source, ED : Standing scale Weight Entry Format : [place] Weight, Pounds : 128 lb Clinical Dosing Weight : 58.18 kg Body Surface Area (BSA) : 1.67 m2 Body Mass Index : 20.1 kg/m2 [place] Body Weight (IBW) : 61.16 kg KIYA [...] KIYA GUERRA RN - 04/10/2021 5:42 EDT documented in this encounter Plan of Treatment Not on file documented as of this encounter Visit Diagnoses Not on filedocumented in this encounter
--- OUTSIDE RECORDS SUMMARY | 2025-01-30 13:03 | XMS_ITS | Encounter Summary ---
Author Organization [employer] iatives Address [address] [place] [address] Care Team Providers Care Neurophysiologist Name Role Phone Unavailable Primary Care Provider Unavailabl e Encounter Details Date Type Department Care Team (Late st Contact Info) Description 04/10/2021 Transcribed Document [facility] [address] [place] [address] Herbie éMndez MD [address] [place] [address] Dept. [place] [address] Social History Tobacco Use Types [...] 1-Time . Notes: spoke to multiple Ob fish conservationist, with recomendations, patient remains stable, US update [...] a clinic referral service , just dial: [phone] (WELL) Our experts will provide you with a physician name and their contact information. Within 2 to 3 days; FAUSTO COSME Within 2 to 3 days Ob, can call to see if they are taking new high risk patients for follow up, or High Risk [phone]. Counseled: Patient. Electronically signed by Brian Zayas Conversion Waterproof Coating Machine Tender Cerner at 11/21/2022 11:39 PM CDT documented in this encounter Plan of Treatment Not on file documented as of this encounter Visit Diagnoses Not on filedocumented in this encounter
--- OUTSIDE RECORDS SUMMARY | 2025-01-30 13:03 | XMS_ITS | Clinical Summary ---
Author Organization [facility] Address [address] [place] [address] Care Team Providers Care Dentistry Professor Name Role Phone Krysten Burt MD Primary Care Provider [phone] Allergies No known active allergies Medications pseudoephedrine [...] (10/02/2021): Added automatically from request for surgery [id number] Encounters Date Type Department Care Team Description 11/10/2024 Orders Only External Location [address] [place] [address] María Ibarra, 11/05/2024 Orders Only External Location [address] [place] [address] Provider, External from Last 3 Months Immunizations [...] a nursing home (including now)? No 03/27/2024 [place] Depression Scale Answer Date Recorded [place] Depression Scale Total 8 12/07/2021 The thought [...] Health Maintenance Due Date Last Done Comments [facility]-Infant/Child/Adol SDOH Screenings 2001 HPV Vaccines (1 - 3-dose series) 2016 [facility]-Chlamydia and Gonorrhea Screening 12/01/2023 11/30/2022, 11/30/2022, 07/15/2022, Additional history exists OST-QVUNG-60 Vaccine ( season) 2024 [facility]- SDOH Screenings [...] EDT This test is performed by the [employer] ([employer]) m2000 instrument for Real Time PCR C. trachomatis and N. gonorrhea. This test is FDA approved for use with endocervical, vaginal, and urine specimens. This test is used for clinical purposes. It should not be regarded as invesigational or for research. The [facility] Clinical Microbiology Laboratory is certified under the Clinical Laboratory Improvement Amendments of 1988 (CLIA-88) as qualified to perform high complexity clinical laboratory testing. us Rhea Ramos MD LAB MICROBIOLOGY - GENERAL ORDERABLES Final Result [facility] [address] [place] [id number] * Pap Test (11/30/2022 3:09 PM EDT) Case Report Cytology Case: [id number] Authorizing Provider: Rhea Ramos MD Collected: 11/30/2022 1509 Ordering Location: Medical Office Building Received: 11/30/2022 [facility] Obstetrics and Gynecology First Screen: Shayy Gordon Specimen: ThinPrep Pap Test, Liquid-Based Cervical/Vaginal, CERVICAL/VAGINAL 12/06/2022 3:06 PM EDT [facility] Interpretation NEGATIVE FOR INTRAEPITHELIAL LESION OR MALIGNANCY 12/06/2022 3:06 PM EDT [facility] at 1506 EDT Specimen Adequacy Satisfactory for evaluation; endocervical/villanueva sformation zone component present. Slide imaged by the ThinPrep Imaging system and selected 22 corado reviewed then full manual screening. 12/06/2022 3:06 PM EDT [facility] Cervical cytology is a screening test [...] results is suggested (please call Microbiology at [phone] for results). 12/06/2022 3:06 PM EDT [facility] Menstrual Status Cyclic 12/07/19 3:06 PM EDT [facility] Contraceptive History Not Applicable 12/06/2022 3:06 PM EDT [facility] Screening Type Routine Screen 2022 3:06 PM EDT [facility] High Risk? No 12/06/2022 3:06 PM EDT [facility] HPV Testing Requested? No HPV Testing Requested 12/06/2022 3:06 PM EDT [facility] Previous Cancer History No 12/06/2022 3:06 PM EDT [facility] Clinical Information R10.2 - Pelvic and perineal pain [ICD-10-CM] 12/06/2022 3:06 PM EDT [facility] Last Menstrual Period 10/25/2022 12/06/2022 3:06 PM EDT [facility] Swab Vaginal and cervical cytologic material / Unknown Non-blood Collection / Unknown 11/30/2022 3:09 PM EDT 11/30/2022 4:15 PM EDT us Rhea Ramos MD LAB CYTOLOGY ORDERABLES Fi nal Result Performing Organization Address City/[facility] Co de Phone Number [facility] [address] [place] [address] * HIV 1 & 2 Antibody/Antigen Screen (04/30/2021 8:23 PM EDT) [facility] HIV 1 & 2 Antibody/Anti gen Screen Nonreactive Nonreactive 04/30/2021 8:23 PM EDT [facility] Blood Venous blood specimen / Unknown 04/30/2021 3:09 PM EDT us Rhea Ramos MD LAB BLOOD ORDERABLES Final Result Performing Organization Address City/[facility]/ZIP Co de Phone Number [facility] [address] [place] [address] * Hepatitis C Antibody (04/30/2021 8:21 PM EDT) [facility] Hepatitis C Antibody Negative Negative 04/30/2021 8:21 PM EDT [facility] Blood Venous blood specimen / Unknown 04/30/2021 3:09 PM EDT us Rhea Ramos MD LAB BLOOD ORDERABLES Final Result [facility] [address] [place] [address] from Last 3 Months or Most Recently Relevant to Health Maintenance Insurance MEDICAID Advance Directives * Full Code (Latest Code Status on File) Date Activated Date Inactivated Comments 10/23/2021 12:34 PM 10/26/2021 4:44 PM Question Answer Comments Patient has decision-making capacity? Yes Care Teams Dentistry Professor Relationship Specialty Start Date End Date Krysten Burt MD [address] [facility] [address] [place] [id number] PCP - General Adolescent Medicine 12/29/22
--- OUTSIDE RECORDS SUMMARY | 2025-01-30 13:03 | XMS_ITS | Encounter Summary ---
Author Organization [employer] Address [address] [place] [address] Care Team Providers Care Child Welfare Social Worker Name Role Phone Unavailable Primary Care Provider Unavailabl e Encounter Details Date Type Department Care Team (Late st Contact Info) Description 04/08/2021 Transcribed Document [facility] [place] [address] [place] [address] ProviderJuan Carlos MD [address] [place] [address] Social History Tobacco Use Types [...]
--- OUTSIDE RECORDS SUMMARY | 2025-01-30 13:03 | XMS_ITS | Encounter Summary ---
Author Organization [employer] iatives Address [address] [place] [address] Care Team Providers Care Stores Assistant Name Role Phone Unavailable Primary Care Provider Unavailabl e Encounter Details Date Type Department Care Team (Late st Contact Info) Description 04/08/2021 Transcribed Document [facility] [place] On license of [facility] [place] [address] ProviderJuan Carlos MD [address] [place] [address] Social History Tobacco Use Types [...] Carlos ProviderMD - 04/08/2021 12:05 [place] [address] LIBERTAD DE LEONNE :2000 Visit Time:04/07/2021 Your [...] take Tylenol as needed. Follow-up with your [facility] LAB RADIOLOGICAL TECHNOLOGIST. Allergies No Known Medication Allergies Immunizations This [...] areas. Get rest and stay hydrated. Take fxyj-jji-meyptkp medicines, such as acetaminophen, to help you [...] provider. Document Revised: 07/10/2020 Document Reviewed: 07/10/2020 [employer] Patient Education ?? 2020 [employer]. COVID-19: How to Protect Yourself and Others Know how it spreads ??? There is currently no vaccine to prevent coronavirus disease 2019 (COVID-19). ??? The best way to prevent illness is to avoid being exposed to this virus. ??? The virus is thought to spread mainly from pjdllq-pq-hpgkxg. ? Between people who are in close [...] are not readily available, use a hand skin diving teacher that contains at least 60% alcohol. Cover [...] are at higher risk of getting very sick.www.cdc.gov/coronavirus/2019-ncov/pivb-qbwsm-csgnfpvykzy/twrvlr-vn-ucgwqu -risk.html Cover your mouth and nose with [...] available, clean your hands with a hand skin diving teacher that contains at least 60% alcohol. Clean and disinfect ??? Clean AND disinfect frequently touched surfaces daily. This includes tables, doorknobs, light switches, countertops, handles, desks, phones, keyboards, toilets, faucets, and sinks. www.cdc.gov/coronavirus/2019-ncov/cejwriy-xkqmsbu-ifpr/yuxuqscjepjv-rfyc-wydg. html ??? If surfaces are dirty, clean [...] Reviewed: 02/14/2020 Elsevier Patient Education ?? 2020 [employer]. COVID-19 Frequently Asked Questions COVID-19 (coronavirus [...] the coronavirus come from? In July 2019, [place] told the World Health Organization (WHO) about several cases of lung disease (human respiratory illness). These cases were linked to an open seafood and livestock market in the [facility] of [facility]. The link to the seafood [...] and virus naming ??? World Health Organization: www.who.int/emergencies/diseases/yolfc-rdxbefviyms-1964/technical-guidance Who is at risk for complications from [...] water are not available, use alcohol-based hand skin diving teacher. ??? Avoid touching your face, mouth, nose, [...] (CDC): www.cdc.gov/coronavirus/2019-ncov/travelers ??? World Health Organization (WHO): www.who.int/emergencies/diseases/hwdrj-lkwhzwnzmkd-2973/travel-advice What should I do if I am sick? General instructions to stop the spread of infection ??? Wash your hands often with soap and water for at least 20 seconds. If soap and water are not available, use alcohol-based hand skin diving teacher. ??? Cough or sneeze into a tissue, [...] in hot, soapy water or use a gas welder apprentice. Air-dry your dishes. ??? Wash laundry in [...] Organization (WHO) ??? Information and news updates: www.who.int/emergencies/diseases/ydorn-qpwzyjxrpvm-1031 ??? Coronavirus health topic: www.who.int/health-topics/coronavirus ??? Questions and answers on COVID-19: www.who.int/news-room/q-a-detail/s-r-exsyxoeuczcof ??? Global tracker: who.myFairPartner [place] Academy [employer]s (AAP) ??? Information for families: www.healthychildren.org/[place]/health-issues/conditions/chest-lungs/Pages/201 4-Rsvnp-Szakwqgutru.aspx The coronavirus situation is changing rapidly. Check [...] provider. Document Revised: 07/22/2020 Document Reviewed: 07/22/2020 [employer] Patient Education ?? 2020 [employer]. Emergency Awareness and Preventative Care STROKE [...] Assistance with quitting is available by contacting 1-217-FZEONOW. This is a free resource providing counseling, [...] was given the opportunity to ask questions. Patient/Zookeeper Name: Patient/Zookeeper Signature: Relationship to Patient: Clinician/Hospital Zookeeper Signature: Please Provide a Telephone Number Where You Can Be Reached: Is it Permissible To Leave a Message? Date: Electronically signed by Brian Zayas Conversion Textile Machinery Sales Representative Martinener at 11/21/2022 11:32 PM CDT documented in this encounter Plan of Treatment Not on file documented as of this encounter Visit Diagnoses Not on filedocumented in this encounter
== END 2025-01-30 23:59 | disposition home or self-care (01) ==
LOC: RAD 12:59
PROVIDERS: PCP Obstetrics & Gynecology; Visit Provider Obstetrics & Gynecology
DX: O46.8X3 Other antepartum hemorrhage, third trimester (principal); O36.5930 Maternal care for other known or suspected poor fetal growth, third trimester, not applicable or unspecified; O09.293 Supervision of pregnancy with other poor reproductive or obstetric history, third trimester; O34.219 Maternal care for unspecified type scar from previous cesarean delivery; Z3A.34 34 weeks gestation of pregnancy
CPT/HCPCS: 76816; 76819; 76820

== ENCOUNTER 2025-02-05 16:30 | Outpatient (CLI) | payer OTHER, SELFPAY ==
--- OUTSIDE RECORDS SUMMARY | 2025-02-05 16:32 | XMS_ITS | Encounter Summary ---
Author Organization [employer] ([place], [place], [place], [place]) Address [address] [place] [address] Care Team Providers Care Intermediate Frame Tender Name Role Phone Unavailable Primary Care Provider Unavailabl e Encounter Details Date Type Department Care Team (Late st Contact Info) Description 04/10/2021 Transcribed Document [facility] [place] [facility] [place] [address] ProviderJuan Carlos MD [address], [place] [id number] Social History Tobacco Use Types Packs/Day Years [...] Historical ProviderMD - 04/10/2021 5:27 AM CDT [place] Suicide Severity Rating Scale (C-SSRS) Entered On: 04/10/2021 6:47 EDT Performed On: 04/10/2021 6:46 EDT by Nasreen Aldridge RN-PATIENT CARE BEDSIDE NON-EXEMPT [place] Suicide Severity Rating Scale (C-SSRS) CSSRS Past [...]
--- OUTSIDE RECORDS SUMMARY | 2025-02-05 16:32 | XMS_ITS | Encounter Summary ---
Author Organization [employer] ([place], [place], [place], [place]) Address [address] [place] [address] Care Team Providers Care Ecologist Name Role Phone Unavailable Primary Care Provider Unavailabl e Encounter Details Date Type Department Care Team (Late st Contact Info) Description 04/11/2021 Transcribed Document [facility] [place] [facility] [place] [address] ProviderJuan Carlos MD [address] [place] [address] Social History Tobacco Use Types [...] we could not check Kandi bass Emily, RAYMOND - 04/11/2021 14:33 EDT Electronically signed by Brian Zayas Conversion Injection Moulding Machine Operator Cerner at 11/21/2022 11:34 PM CDT documented in this encounter Plan of Treatment Not on file documented as of this encounter Visit Diagnoses Not on filedocumented in this encounter
--- OUTSIDE RECORDS SUMMARY | 2025-02-05 16:32 | XMS_ITS | Encounter Summary ---
Author Organization [employer] ([place], [place], [place], [place]) Address [address] [place] [address] Care Team Providers Care Wire Steward Name Role Phone Unavailable Primary Care Provider Unavailabl e Encounter Details Date Type Department Care Team (Late st Contact Info) Description 04/11/[address] [facility] [place] [facility] [place] [address] ProviderJuan Carlos MD [address] [place] [address] Social History Tobacco Use Types [...] Carlos ProviderMD - 04/11/2021 2:23 PM CDT [place] [id number] LIBERTAD WEBBNE :2000 Visit Time:04/11/2021 Your Visit [...] pelvic rest as discussed. Follow-up with your TEMPLATE FITTER in 2 days for repeat assessment. Allergies [...] provider. Document Revised: 08/31/2018 Document Reviewed: 10/21/2017 [employer] Patient Education ?? 2020 [employer] Vaginal Bleeding During , First Trimester [...] this is safe. General instructions ??? Take okkc-prb-utpstey and prescription medicines only as told by [...] provider. Document Revised: 11/13/2019 Document Reviewed: 10/27/2017 [employer] Patient Education ?? 2020 [employer] Subchorionic Hematoma A subchorionic hematoma is [...] provider. Document Revised: 07/07/2018 Document Reviewed: 09/20/2017 [employer] Patient Education ?? 2020 [employer] Emergency Awareness and Preventative Care STROKE [...] Assistance with quitting is available by contacting 7-310-UBBBNOW. This is a free resource providing counseling, support, and referral. Or you may contact your personal physician. [place] Suicide Prevention Lifeline: The National Suicide Prevention [...] was given the opportunity to ask questions. Patient/Maid Cleaning Cooking Name: Patient/Maid Cleaning Cooking Signature: Relationship to Patient: Clinician/Hospital Maid Cleaning Cooking Signature: Please Provide a Telephone Number Where You Can Be Reached: Is it Permissible To Leave a Message? Date: Electronically signed by Chana, [facility] Conversion Community Service Specialist Cerner at 11/21/2022 11:34 PM CDT documented in this encounter Plan of Treatment Not on file documented as of this encounter Visit Diagnoses Not on filedocumented in this encounter
--- OUTSIDE RECORDS SUMMARY | 2025-02-05 16:32 | XMS_ITS | Encounter Summary ---
Author Organization [employer] ([place], [place], [place], [place]) Address [address] [place] [address] Care Team Providers Care Knitter Hand Name Role Phone Unavailable Primary Care Provider Unavailabl e Encounter Details Date Type Department Care Team (Late st Contact Info) Description 04/11/2021 Transcribed Document [facility] [place] Family Medicine [facility] [place] [address] ProviderJuan Carlos MD [address] [place] [address] Social History Tobacco Use Types [...] PM CDT Electronically signed by Chana [facility] Conversion Biochemistry Technician Yu at 11/21/2022 11:35 PM CDT documented in this encounter Plan of Treatment Not on file documented as of this encounter Visit Diagnoses Not on filedocumented in this encounter
--- OUTSIDE RECORDS SUMMARY | 2025-02-05 16:32 | XMS_ITS | Encounter Summary ---
Author Organization [employer] ([place], [place], [place], [place]) Address [address] [place] [address] Care Team Providers Care Volunteer Services Specialist Name Role Phone Unavailable Primary Care Provider Unavailabl e Encounter Details Date Type Department Care Team (Late st Contact Info) Description 04/08/2021 Transcribed Document [facility] [place] [facility] [place] [address] ProviderJuan Carlos MD [facility] [place], [place] [id number] Social History Tobacco Use Types Packs/Day Years [...] Patient Prescriptions Given to Patient : No MARIANA ESTEVES RN - 04/08/2021 0:17 EDT documented in this encounter Plan of Treatment Not on file documented as of this encounter Visit Diagnoses Not on filedocumented in this encounter
--- OUTSIDE RECORDS SUMMARY | 2025-02-05 16:32 | XMS_ITS | Encounter Summary ---
Author Organization [employer] ([place], [place], [place], [place]) Address [address] [place] [address] Care Team Providers Care Sas Developer Name Role Phone Unavailable Primary Care Provider Unavailabl e Encounter Details Date Type Department Care Team (Late st Contact Info) Description 04/11/2021 Transcribed Document [facility] [place] [facility] [place] [address] ProviderJuan Carlos MD [facility] [place] [address] Social History Tobacco Use Types [...] Patient reports brownish-red vaginal spotting that is manager pricing than her menstrual period. This began yesterday and has continued today. She denies any abdominal pain or pelvic cramping. Also denies fever, nausea/vomiting, vaginal discharge. Patient tested positive for COVID-19 4 days ago and yesterday received the monoclonal antibody infusion. She currently follows with an PUBLIC RELATIONS COORDINATOR at [facility], however is in the process of transitioning [...] Interpreted and electronically signed by: SANJUANITA HERMAN MD-LIBBY Signed DT/TM: 04/11/2021 2:10 pm Transcribed by: RS REPORT This document has an image Result type: US OB Transvaginal Result date: April 11, 2021 12:58 EDT Result status: Auth (Verified) Result title: US OB Transvaginal Signed By/Author: KORY RAMON PA-C on April 11, 2021 13:56 EDT Verified by: SANJUANITA HERMAN MD-RAD on April 11, 2021 14:10 EDT Encounter info: [id number], BEREKET Diaz [facility], Emergency Room, 04/11/2021 - 04/11/2021 . [...] discussed strict pelvic rest and follow-up with PUBLIC RELATIONS COORDINATOR. Patient voices understanding and agreement with plan. [...] pelvic rest as discussed. Follow-up with your PUBLIC RELATIONS COORDINATOR in 2 days for repeat assessment., Follow up with primary care provider Within 2 to 3 days Call for follow up appointment. Return to the ER for any new or worsening symptoms as discussed, especially fever, persistent pelvic pain, vaginal bleeding greater than 2 pads/hour. Recommend pelvic rest as discussed. Follow-up with your PUBLIC RELATIONS COORDINATOR in 2 days for repeat assessment., Follow up with primary care provider Within 2 to 3 days Call for follow up appointment. Return to the ER for any new or worsening symptoms as discussed, especially fever, persistent pelvic pain, vaginal bleeding greater than 2 pads/hour. Recommend pelvic rest as discussed. Follow-up with your PUBLIC RELATIONS COORDINATOR in 2 days for repeat assessment.. Counseled: Patient, Regarding diagnosis, Regarding diagnostic results, Regarding treatment plan, Patient indicated understanding of instructions. Electronically signed by Chana, Brian Conversion Geographic Information System Analyst Cerner at 11/21/2022 11:49 PM CDT documented in this encounter Plan of Treatment Not on file documented as of this encounter Visit Diagnoses Not on filedocumented in this encounter
--- OUTSIDE RECORDS SUMMARY | 2025-02-05 16:32 | XMS_ITS | Encounter Summary ---
Author Organization [employer] ([place], [place], [place], [place]) Address [address] [place] [address] Care Team Providers Care Funeral Arranger Name Role Phone Unavailable Primary Care Provider Unavailabl e Encounter Details Date Type Department Care Team (Late st Contact Info) Description 04/11/2021 Transcribed Document [facility] [place] [facility] [place] [address] ProviderJuan Carlos MD [facility] [place] [address] Social History Tobacco Use Types [...] 04/11/2021 14:35 EDT Electronically signed by Chana [facility] Conversion Civil Service Clerk Cerner at 11/21/2022 11:36 PM CDT documented in this encounter Plan of Treatment Not on file documented as of this encounter Visit Diagnoses Not on filedocumented in this encounter
--- OUTSIDE RECORDS SUMMARY | 2025-02-05 16:32 | XMS_ITS | Encounter Summary ---
Author Organization [employer] ([place], [place], [place], [place]) Address [address] [place] [address] Care Team Providers Care Voicer Name Role Phone Unavailable Primary Care Provider Unavailabl e Encounter Details Date Type Department Care Team (Late st Contact Info) Description 04/07/2021 Transcribed Document [facility] [place] [facility] [place] [address] ProviderJuan Carlos MD [address] [place] [address] Social History Tobacco Use Types [...] transitioning her care from her OB at [facility] her sleep as to a high risk case manager at . Denies any abdominal pain or [...] COVID-19: What Your Test Results Mean - [facility]. Follow up with: Follow up with primary care provider Within 2 to 3 days Call for follow up appointment. Return to the ER for any new or worsening symptoms as discussed, especially difficulty breathing or low O2 sat below 90%. Drink plenty of fluids and rest. You may take Tylenol as needed. Follow-up with your TEST SPECIALIST.; , Follow up with primary care provider Within 2 to 3 days Call for follow up appointment. Return to the ER for any new or worsening symptoms as discussed, especially difficulty breathing or low O2 sat below 90%. Drink plenty of fluids and rest. You may take Tylenol as needed. Follow-up with your TEST SPECIALIST.. Counseled: Patient, Regarding diagnosis, Regarding diagnostic results, Regarding treatment plan, Patient indicated understanding of instructions. documented in this encounter Plan of Treatment Not on file documented as of this encounter Visit Diagnoses Not on filedocumented in this encounter
--- OUTSIDE RECORDS SUMMARY | 2025-02-05 16:32 | XMS_ITS | Encounter Summary ---
Author Organization [employer] ([place], [place], [place], [place]) Address [address] [place] [address] Care Team Providers Care Operations Officer Trust Department Name Role Phone Unavailable Primary Care Provider Unavailabl e Encounter Details Date Type Department Care Team (Late st Contact Info) Description 04/11/2021 Transcribed Document [facility] [place] [address] [place] [address] ProviderJuan Carlos MD [address] [place], [place] [address] Social History Tobacco Use Types Packs/Day Years [...] Historical ProviderMD - 04/11/2021 9:48 AM CDT [place] Suicide Severity Rating Scale (C-SSRS) Entered On: 04/11/2021 12:05 EDT Performed On: 04/11/2021 12:04 EDT by Lacey Chau RN [place] Suicide Severity Rating Scale (C-SSRS) CSSRS Past [...]
--- OUTSIDE RECORDS SUMMARY | 2025-02-05 16:32 | XMS_ITS | Encounter Summary ---
Author Organization [employer] ([place], [place], [place], [place]) Address [address] [place] [address] Care Team Providers Care Lion Tamer Name Role Phone Unavailable Primary Care Provider Unavailabl e Encounter Details Date Type Department Care Team (Late st Contact Info) Description 04/11/2021 Transcribed Document [facility] [place] [address] [place] [address] ProviderJuan Carlos MD [address] [place], [place] [id number] Social History Tobacco Use Types Packs/Day Years [...]
--- OUTSIDE RECORDS SUMMARY | 2025-02-05 16:32 | XMS_ITS | Clinical Summary ---
Author Organization [employer] ([place], [place]) Address [address] [place] [address] Care Team Providers Care Landscaper Name Role Phone Unavailable Primary Care Provider [...]
--- OUTSIDE RECORDS SUMMARY | 2025-02-05 16:32 | XMS_ITS | Encounter Summary ---
Author Organization [employer] ([place], [place], [place], [place]) Address [address] [place] [address] Care Team Providers Care Termite Renewal Inspector Name Role Phone Unavailable Primary Care Provider Unavailabl e Encounter Details Date Type Department Care Team (Late st Contact Info) Description 04/08/2021 Transcribed Document [facility] [place] [facility] [place] [address] ProviderJuan Carlos MD [address] [place] [address] Social History Tobacco Use Types [...]
--- OUTSIDE RECORDS SUMMARY | 2025-02-05 16:32 | XMS_ITS | Clinical Summary ---
Author Organization [facility] Address [address] [place] [address] Care Team Providers Care Honey Producer Name Role Phone Krysten Burt MD Primary Care Provider Allergies No known active allergies Medications pseudoephedrine [...] (10/02/2021): Added automatically from request for surgery [id number] Encounters Date Type Department Care Team Description 11/10/2024 Orders Only External Location [address] [place] [address] María Ibarra DO from Last 3 Months Immunizations Immunization Administration Dates Next Due Tdap 08/20/2021 Family History Medical History Relation Name Comments Alcohol abuse Maternal Grandmother Brandy Coekr Drug abuse Maternal Grandmother Brandy Coker Miscarriages [...] place to sleep or slept in a prison (including now)? No 03/27/2024 [place] Depression Scale Answer Date Recorded [place] Depression Scale Total 8 12/07/2021 The thought [...] 12/01/2023 11/30/2022, 11/30/2022, 07/15/2022, Additional history exists [id number] Vaccine ( - season) 2024 [facility]- SDOH Screenings 09/27/2024 [facility]-Adult [...] OUTSIDE IMAGES 11/10/2024 1:3 0 PM EDT PAP TEST - CYTOLOGY Routine 11/30/2022 [...] Ultrasound 11/10/2024 1:30 PM EDT us María AVENDAÑO US PROCEDURES Final Result * Chlamydia trachomatis DNA by PCR (11/30/2022 3:09 PM EDT) Chlamydia trachomatis DNA PCR Result Not Detected Not Detected 12/02/2022 9:37 AM EDT [facility] Swab Endocervical structure / Unknown Non-blood Collection / Unknown 11/30/2022 3:09 PM EDT 11/30/2022 4:07 PM EDT Narrative [facility] - 12/02/2022 9:37 AM EDT This test is performed by the [employer] m2000 instrument for Real Time PCR C. trachomatis and N. gonorrhea. This test is FDA approved for use with endocervical, vaginal, and urine specimens. This test is used for clinical purposes. It should not be regarded as invesigational or for research. The [facility] Clinical Microbiology Laboratory is certified under the Clinical Laboratory Improvement Amendments of 1988 (CLIA-88) as qualified to perform high complexity clinical laboratory testing. us Rhea Ramos MD LAB MICROBIOLOGY - GENERAL ORDERABLES Final Result [facility] [address] [place] [address] * Pap Test (11/30/2022 3:09 PM EDT) Case Report Cytology Case: [id number] Authorizing Provider: Rhea Ramos MD Collected: 11/30/2022 1509 Ordering Location: Medical Office Building Received: 11/30/2022 1615 Obstetrics and Gynecology First Screen: Shayy Gordon Specimen: ThinPrep Pap Test, Liquid-Based Cervical/Vaginal, CERVICAL/VAGINAL 12/06/2022 3:06 PM EDT [facility] Interpretation NEGATIVE FOR INTRAEPITHELIAL LESION OR MALIGNANCY 12/06/2022 3:06 PM EDT [facility] at 1506 EDT Specimen Adequacy Satisfactory for evaluation; endocervical/villan[place]va sformation zone component present. Slide imaged by the ThinPrep Imaging system and selected 22 corado reviewed then full manual screening. 12/06/2022 3:06 PM EDT [facility] Cervical cytology is a screening test [...] results is suggested (please call Microbiology at [phone] for results). 12/06/2022 3:06 PM EDT [facility] Menstrual Status Cyclic 12/07/19 3:06 PM EDT [facility] Contraceptive History Not Applicable 12/06/2022 3:06 PM EDT [facility] Screening Type Routine Screen 2022 3:06 PM EDT [facility] High Risk? No 12/06/2022 3:06 PM EDT [facility] HPV Testing Requested? No HPV Testing Requested 12/06/2022 3:06 PM EDT [facility] Previous Cancer History No 12/06/2022 3:06 PM EDT [facility] Clinical Information R10.2 - Pelvic and perineal pain [ICD-10-CM] 12/06/2022 3:06 PM EDT [facility] Last Menstrual Period 10/25/2022 12/06/2022 3:06 PM EDT [facility] Swab Vaginal and cervical cytologic material / Unknown Non-blood Collection / Unknown 11/30/2022 3:09 PM EDT 11/30/2022 4:15 PM EDT Rhea Ramos MD LAB CYTOLOGY ORDERABLES Fi nal Result [facility] [address] [place] [address] * HIV 1 & 2 Antibody/Antigen Screen (04/30/2021 8:23 PM EDT) Pathologist [facility] HIV 1 & 2 Antibody/Anti gen Screen Nonreactive Nonreactive 04/30/2021 8:23 PM EDT [facility] Blood Venous blood specimen / Unknown 04/30/2021 3:09 PM EDT Rhea Ramos MD LAB BLOOD ORDERABLES Final Result [facility] [address] [place] [address] * Hepatitis C Antibody (04/30/2021 8:21 PM EDT) Pathologist [facility] Hepatitis C Antibody Negative Negative 04/30/2021 8:21 PM EDT [facility] Blood Venous blood specimen / Unknown 04/30/2021 3:09 PM EDT Rhea Ramos MD LAB BLOOD ORDERABLES Final Result [facility] [address] [place] [address] from Last 3 Months or Most Recently Relevant to Health Maintenance Insurance MEDICAID Advance Directives * Full Code (Latest Code Status on File) Date Activated Date Inactivated Comments 10/23/2021 12:34 PM 10/26/2021 4:44 PM Question Answer Comments Patient has decision-making capacity? Yes Care Teams Honey Producer Relationship Specialty Start Date End Date Krysten Burt MD [address] [facility] [address] [place] [address] PCP - General Adolescent Medicine 12/29/22
--- OUTSIDE RECORDS SUMMARY | 2025-02-05 16:32 | XMS_ITS | Encounter Summary ---
Author Organization [facility] ([place], [place], [place], [place]) Address [address] [place] [address] Care Team Providers Care Laundry Tech Name Role Phone Unavailable Primary Care Provider Unavailabl e Encounter Details Date Type Department Care Team (Late st Contact Info) Description 04/10/2021 Transcribed Document [facility] [place] [facility] [place] [address] ProviderJuan Carlos MD [facility] [place] [address] Social History Tobacco Use Types [...] EDT DCP GENERIC CODE Tracking Group : [facility] Tracking Acuity : 3 - Urgent KIYA [...] caused by 2019 novel coronavirus (SNOMED CT :[id number] ) Name of Problem: Disease caused by 2019 novel coronavirus ; Recorder: SYSTEM, SYSTEM; Confirmation: Confirmed ; Classification: Medical ; Code: [id number] ; Last Updated: 04/07/2021 22:55 EDT ; Life Cycle Date: 04/07/2021 ; Life Cycle Status: Active ; Vocabulary: SNOMED CT ; Comments: 04/07/2021 22:55 - SYSTEM, SYSTEM Problem added by a rule: [id number]. Diagnoses(Active) Medication administration Date: 04/10/2021 ; Diagnosis Type: Reason For Visit ; Confirmation: Complaint of ; Clinical Dx: Medication administration ; Classification: Medical ; Clinical Service: Emergency medicine ; Code: PNED ; Probability: 0 ; Diagnosis Code: [id number] ED Height and Weight Height Source : Measured Height Entry Format : [place] Height, Feet : 5 ft(Converted to: 152 cm, 60 Inch) Height, Inches : 7 Inch(Converted to: 0 ft 7 Inch, 17.78 cm) Clinical Height : 170.18 cm Weight Source, ED : Standing scale Weight Entry Format : [place] Weight, Pounds : 128 lb Clinical Dosing Weight : 58.18 kg Body Surface Area (BSA) : 1.67 m2 Body Mass Index : 20.1 kg/m2 [place] Body Weight (IBW) : 61.16 kg KIYA [...] EDT Electronically signed by Brian Zayas Conversion Electronic Engineering Technician Cerner at 11/21/2022 11:40 PM CDT documented in this encounter Plan of Treatment Not on file documented as of this encounter Visit Diagnoses Not on filedocumented in this encounter
--- OUTSIDE RECORDS SUMMARY | 2025-02-05 16:32 | XMS_ITS | Encounter Summary ---
Author Organization [employer] ([place], [place], [place], [place]) Address [address] [place] [address] Care Team Providers Care Gum Machine Operator Name Role Phone Unavailable Primary Care Provider Unavailabl e Encounter Details Date Type Department Care Team (Late st Contact Info) Description 04/11/2021 Transcribed Document [facility] [place] [address] [place] [address] ProviderJuan Carlos MD [address] [place], [place] [id number] Social History Tobacco Use Types Packs/Day Years [...]
--- OUTSIDE RECORDS SUMMARY | 2025-02-05 16:32 | XMS_ITS | Encounter Summary ---
Author Organization [employer] ([place], [place], [place], [place]) Address [address] [place] [address] Care Team Providers Care Rn Triage Name Role Phone Unavailable Primary Care Provider Unavailabl e Encounter Details Date Type Department Care Team (Late st Contact Info) Description 04/07/2021 Transcribed Document [facility] [place] [address] [place] [address] ProviderJuan Carlos MD [address], [place] [id number] Social History Tobacco Use Types Packs/Day Years [...]
--- OUTSIDE RECORDS SUMMARY | 2025-02-05 16:32 | XMS_ITS | Encounter Summary ---
Author Organization [employer] ([place], [place], [place], [place]) Address [address] [place] [address] Care Team Providers Care Metal Hanging Supervisor Name Role Phone Unavailable Primary Care Provider Unavailabl e Encounter Details Date Type Department Care Team (Late st Contact Info) Description 04/10/2021 Transcribed Document [facility] [place] [facility] [place] [facility] [place] [address] ProviderJuan Carlos MD [address] [place] [address] Social History Tobacco Use Types [...] - Juan Carlos Cavazos MD - 04/10/2021 8:45 AM CDT [place] [id number] LIBERTAD DE LEONNE :2000 Visit Time:04/10/2021 Your Visit Summary Your [...] or High Risk [phone] [address] [place] [id number]- [facility] (1) Follow Up with For a clinic referral service , just dial: [phone] (WELL) Our experts will provide you with [...] water are not available, use alcohol-based hand deicer tester. ??? Avoid touching your mouth, face, eyes, [...] pump parts after expressing milk. Follow the recreation activities coordinator's instructions to clean and disinfect all pump [...] (CDC): www.cdc.gov/coronavirus/2019-ncov/ ??? World Health Organization (WHO): www.who.int/news-room/q-a-detail/g-z-ns-dwvqs-37-qcbcxlryd-lwlbaxbafs-mbn-tqww stfeeding ??? [place] College of Obstetricians and Gynecologists (ACOG): www.acog.org/patient-resources/faqs//iyravmqexdt-mbttnegvz-kop-breast feeding Questions to ask your health care [...] provider. Document Revised: 07/25/2020 Document Reviewed: 07/25/2020 Clarivoy Patient Education ?? 2020 Reppler. 10 Things You Can Do to Manage [...] clean your hands with an alcohol-based hand deicer tester that contains at least 60% alcohol. 8. [...] Reviewed: 07/10/2020 Elsevier Patient Education ?? 2020 Clarivoy Inc. Emergency Awareness and Preventative Care STROKE [...] Assistance with quitting is available by contacting 0-087-CCXTNOW. This is a free resource providing counseling, support, and referral. Or you may contact your personal physician. [employer] Suicide Prevention Lifeline: The National Suicide Prevention [...] was given the opportunity to ask questions. Patient/Corporate Wellness Coordinator Name: Patient/Corporate Wellness Coordinator Signature: Relationship to Patient: Clinician/Hospital Corporate Wellness Coordinator Signature: Please Provide a Telephone Number Where You Can Be Reached: Is it Permissible To Leave a Message? Date: documented in this encounter Plan of Treatment Not on file documented as of this encounter Visit Diagnoses Not on filedocumented in this encounter
--- OUTSIDE RECORDS SUMMARY | 2025-02-05 16:32 | XMS_ITS | Encounter Summary ---
Author Organization [employer] ([place], [place], [place], [place]) Address [address] [place] [address] Care Team Providers Care Highway Worker Name Role Phone Unavailable Primary Care Provider Unavailabl e Encounter Details Date Type Department Care Team (Late st Contact Info) Description 04/10/2021 Transcribed Document [facility] Radiology [address] [place] [address] Herbie Méndez MD [address] [place] [address] Dept. of Emergency [place] [address] Social History Tobacco Use Types [...] 1-Time . Notes: spoke to multiple Ob rehabilitation counsellor, with recomendations, patient remains stable, US update [...] a clinic referral service , just dial: [phone] (WELL) Our experts will provide you with [...]
--- OUTSIDE RECORDS SUMMARY | 2025-02-05 16:32 | XMS_ITS | Encounter Summary ---
Author Organization [employer] ([place], [place], [place], [place]) Address [address] [place] [address] Care Team Providers Care Pool Hall Inspector Name Role Phone Unavailable Primary Care Provider Unavailabl e Encounter Details Date Type Department Care Team (Late st Contact Info) Description 04/10/2021 Transcribed Document [facility] [place] [facility] [place] [address] ProviderJuan Carlos MD [address] [place] [address] Social History Tobacco Use Types [...] Cavazos MD - 04/10/2021 8:46 AM CDT [place] [id number] LIBERTAD DE LEONNE :2000 Visit Time:04/10/2021 Your [...] or High Risk [phone] [address] [place] [id number]- [facility] (1) Follow Up with For a clinic referral service , just dial: [phone] (WELL) Our experts will provide you with [...] water are not available, use alcohol-based hand agribusiness internship. ??? Avoid touching your mouth, face, eyes, [...] pump parts after expressing milk. Follow the technical business systems analyst's instructions to clean and disinfect all pump [...] (CDC): www.cdc.gov/coronavirus/2019-ncov/ ??? World Health Organization (WHO): www.who.int/news-room/q-a-detail/g-c-zi-ppaux-86-jxxunqwkm-upqzaqhfey-cho-cgky stfeeding ??? [place] College of Obstetricians and Gynecologists (ACOG): www.acog.org/patient-resources/faqs//zljcwvkkhiz-wonppeluu-rmj-breast feeding Questions to ask your health care [...] provider. Document Revised: 07/25/2020 Document Reviewed: 07/25/2020 Mimub Patient Education ?? 2020 YouGov. 10 Things You Can Do to Manage [...] clean your hands with an alcohol-based hand agribusiness internship that contains at least 60% alcohol. 8. [...] Reviewed: 07/10/2020 Elsevier Patient Education ?? 2020 Mimub Inc. Emergency Awareness and Preventative Care STROKE [...] Assistance with quitting is available by contacting 4-538-KUHNNOW. This is a free resource providing counseling, support, and referral. Or you may contact your personal physician. [employer] Suicide Prevention Lifeline: The National Suicide Prevention [...] was given the opportunity to ask questions. Patient/Miner Name: Patient/Miner Signature: Relationship to Patient: Clinician/Hospital Miner Signature: Please Provide a Telephone Number Where You Can Be Reached: Is it Permissible To Leave a Message? Date: Electronically signed by Chana [facility] Conversion Director Of Nurses Registry Yu at 11/21/2022 11:37 PM CDT documented in this encounter Plan of Treatment Not on file documented as of this encounter Visit Diagnoses Not on filedocumented in this encounter
--- OUTSIDE RECORDS SUMMARY | 2025-02-05 16:32 | XMS_ITS | Encounter Summary ---
Author Organization [employer] ([place], [place], [place], [place]) Address [address] [place] [address] Care Team Providers Care Barman Name Role Phone Unavailable Primary Care Provider Unavailabl e Encounter Details Date Type Department Care Team (Late st Contact Info) Description 04/10/2021 Transcribed Document [facility] [place] Medicine [facility] [place] [address] ProviderJuan Carlos MD [facility] [place] [address] Social History Tobacco Use Types [...]
--- OUTSIDE RECORDS SUMMARY | 2025-02-05 16:32 | XMS_ITS | Encounter Summary ---
Author Organization [employer] ([place], [place], [place], [place]) Address [address] [place] [address] Care Team Providers Care Warble Saw Operator Name Role Phone Unavailable Primary Care Provider Unavailabl e Encounter Details Date Type Department Care Team (Late st Contact Info) Description 04/10/2021 Transcribed Document [facility] [place] [facility] [place] [address] ProviderJuan Carlos MD [address] [place], [place] [address] Social History Tobacco Use Types Packs/Day Years [...]
--- OUTSIDE RECORDS SUMMARY | 2025-02-05 16:32 | XMS_ITS | Encounter Summary ---
Author Organization [employer] ([place], [place], [place], [place]) Address [address] [place] [address] Care Team Providers Care Weave Defect Charting Clerk Name Role Phone Unavailable Primary Care Provider Unavailabl e Encounter Details Date Type Department Care Team (Late st Contact Info) Description 04/11/2021 Transcribed Document [facility] [place] [facility] [place] [address] ProviderJuan Carlos MD [facility] [place] [address] Social History Tobacco Use Types [...] : 3 - Urgent Tracking Group : [facility] ED [facility] Harleen Brown RN - 04/11/2021 10:10 EDT [...] Updated By: MARIANA ESTEVES RN; Reviewed Date: 04/11/2021 10:12 EDT Diagnosis Control ED (As Of: 04/11/2021 10:13:01 EDT) Problems(Active) Disease caused by 2019 novel coronavirus (SNOMED CT :5839168902 ) Name of Problem: Disease caused by 2019 novel coronavirus ; Recorder: SYSTEM, SYSTEM; Confirmation: Confirmed ; Classification: Medical ; Code: [id number] ; Last Updated: 04/07/2021 22:55 EDT ; Life Cycle Date: 04/07/2021 ; Life Cycle Status: Active ; Vocabulary: SNOMED CT ; Comments: 04/07/2021 22:55 - SYSTEM, SYSTEM Problem added by a rule: [id number]. Diagnoses(Active) Vaginal bleeding Date: 04/11/2021 ; Diagnosis Type: Reason For Visit ; Confirmation: Complaint of ; Clinical Dx: Vaginal bleeding ; Classification: Medical ; Clinical Service: Non-Specified ; Code: PNED ; Probability: 0 ; Diagnosis Code: [id number] ED Height and Weight Height Source : Measured Height Entry Format : [place] Height, Feet : 5 ft(Converted to: 152 cm, 60 Inch) Height, Inches : 7 Inch(Converted to: 0 ft 7 Inch, 17.78 cm) Clinical Height : 170.18 cm Weight Source, ED : Standing scale Weight Entry Format : [place] Weight, Pounds : 128 lb Clinical Dosing Weight : 58.18 kg Body Surface Area (BSA) : 1.67 m2 Body Mass Index : 20.1 kg/m2 [place] Body Weight (IBW) : 61.16 kg Harleen Brown RN - 04/11/2021 10:10 EDT documented in this encounter Plan of Treatment Not on file documented as of this encounter Visit Diagnoses Not on filedocumented in this encounter
--- OUTSIDE RECORDS SUMMARY | 2025-02-05 16:32 | XMS_ITS | Encounter Summary ---
Author Organization [employer] ([place], [place], [place], [place]) Address [address] [place] [address] Care Team Providers Care Asphalt Smoother Name Role Phone Unavailable Primary Care Provider Unavailabl e Encounter Details Date Type Department Care Team (Late st Contact Info) Description 04/08/2021 Transcribed Document [facility] Family Medicine [facility] [place] [address] ProviderJuan Carlos MD [address] [place] [address] Social History Tobacco Use Types [...] Carlos ProviderMD - 04/08/2021 12:05 AM CDT [place] [id number] LIBERTAD WEBBNE :2000 Visit Time:04/07/2021 Your Visit Summary Your [...] take Tylenol as needed. Follow-up with your GLASS TECHNOLOGIST. Allergies No Known Medication Allergies Immunizations [...] areas. Get rest and stay hydrated. Take oqdc-coo-wbyvixz medicines, such as acetaminophen, to help you [...] provider. Document Revised: 07/10/2020 Document Reviewed: 07/10/2020 ElseWantable, Inc. Patient Education ?? 2020 Nextt Inc. COVID-19: How to Protect Yourself and Others Know how it spreads ??? There is currently no vaccine to prevent coronavirus disease 2019 (COVID-19). ??? The best way to prevent illness is to avoid being exposed to this virus. ??? The virus is thought to spread mainly from qvfrnt-rk-evjvqm. ? Between people who are in close [...] are not readily available, use a hand log loader that contains at least 60% alcohol. Cover [...] are at higher risk of getting very sick.www.cdc.gov/coronavirus/2019-ncov/muft-twdbg-bkjgykrmfpx/yzmssa-bs-kjiseh -risk.html Cover your mouth and nose with [...] available, clean your hands with a hand log loader that contains at least 60% alcohol. Clean and disinfect ??? Clean AND disinfect frequently touched surfaces daily. This includes tables, doorknobs, light switches, countertops, handles, desks, phones, keyboards, toilets, faucets, and sinks. www.cdc.gov/coronavirus/2019-ncov/kpmoboy-jpducxd-egob/aoeezhmibhqs-qawy-xtlc. html ??? If surfaces are dirty, clean [...] Reviewed: 02/14/2020 Elsevier Patient Education ?? 2020 Videology. COVID-19 Frequently Asked Questions COVID-19 (coronavirus disease) [...] the coronavirus come from? In July 2019, [place] told the World Health Organization (WHO) about several cases of lung disease (human respiratory illness). These cases were linked to an open seafood and livestock market in the [facility] of [facility]. The link to the seafood [...] and virus naming ??? World Health Organization: www.who.int/emergencies/diseases/osvfy-gtxonmlrori-7364/technical-guidance Who is at risk for complications from [...] water are not available, use alcohol-based hand log loader. ??? Avoid touching your face, mouth, nose, [...] (CDC): www.cdc.gov/coronavirus/2019-ncov/travelers ??? World Health Organization (WHO): www.who.int/emergencies/diseases/zmoam-almfpdubzpa-5684/travel-advice What should I do if I am sick? General instructions to stop the spread of infection ??? Wash your hands often with soap and water for at least 20 seconds. If soap and water are not available, use alcohol-based hand log loader. ??? Cough or sneeze into a tissue, [...] in hot, soapy water or use a bulb farmworker. Air-dry your dishes. ??? Wash laundry in [...] Organization (WHO) ??? Information and news updates: www.who.int/emergencies/diseases/qbkjp-ezlprsfqljp-9158 ??? Coronavirus health topic: www.who.int/health-topics/coronavirus ??? Questions and answers on COVID-19: www.who.int/news-room/q-a-detail/d-v-ibhouegfvwydq ??? Global tracker: CMP.LY.PerspecSys [place] Academy of Pediatrics (AAP) ??? Information for families: www.healthychildren.org/[place]/health-issues/conditions/chest-lungs/Pages/201 3-Qiuxg-Fckxhywxklg.aspx The coronavirus situation is changing rapidly. Check [...] provider. Document Revised: 07/22/2020 Document Reviewed: 07/22/2020 Nextt Patient Education ?? 2020 [employer] SAMUR[employer]vier Inc. Emergency Awareness and Preventative Care STROKE [...] Assistance with quitting is available by contacting 7-858-WMJLNOW. This is a free resource providing counseling, support, and referral. Or you may contact your personal physician. [employer] Suicide Prevention Lifeline: The National Suicide Prevention [...] was given the opportunity to ask questions. Patient/Varnish Maker Name: Patient/Varnish Maker Signature: Relationship to Patient: Clinician/Hospital Varnish Maker Signature: Please Provide a Telephone Number Where You Can Be Reached: Is it Permissible To Leave a Message? Date: Electronically signed by [facility] Conversion Spooling Operator Yu at 11/21/2022 11:32 PM CDT documented in this encounter Plan of Treatment Not on file documented as of this encounter Visit Diagnoses Not on filedocumented in this encounter
--- OUTSIDE RECORDS SUMMARY | 2025-02-05 16:32 | XMS_ITS | Encounter Summary ---
Author Organization [employer] ([place], [place], [place], [place]) Address [address] [place] [address] Care Team Providers Care Assistant Elementary Teacher Name Role Phone Unavailable Primary Care Provider Unavailabl e Encounter Details Date Type Department Care Team (Late st Contact Info) Description 04/10/2021 Transcribed Document [facility] [place] [facility] [place] [address] ProviderJuan Carlos MD [facility] [place], [place] [id number] Social History Tobacco Use Types Packs/Day Years [...] Communication Barrier : None Primary Language : Prydeinig Any Spiritual/Cultural Needs or Requests : No [...]
--- OUTSIDE RECORDS SUMMARY | 2025-02-05 16:32 | XMS_ITS | Encounter Summary ---
Author Organization [employer] ([place], [place], [place], [place]) Address [address] [place] [address] Care Team Providers Care Wood Products Manufacturer Name Role Phone Unavailable Primary Care Provider Unavailabl e Encounter Details Date Type Department Care Team (Late st Contact Info) Description 04/07/2021 Transcribed Document [facility] [place] [facility] [place] [address] ProviderJuan Carlos MD [facility] [place], [place] [id number] Social History Tobacco Use Types Packs/Day Years [...] Communication Barrier : None Primary Language : Peruvian General Information Comment : seen by provider [...]
--- OUTSIDE RECORDS SUMMARY | 2025-02-05 16:32 | XMS_ITS | Encounter Summary ---
Author Organization [employer] ([place], [place], [place], [place]) Address [address] [place] [address] Care Team Providers Care Deck Worker Name Role Phone Unavailable Primary Care Provider Unavailabl e Encounter Details Date Type Department Care Team (Late st Contact Info) Description 04/11/2021 Transcribed Document [facility] [place] [facility] [place] [address] ProviderJuan Carlos MD [facility] [place], [place] [id number] Social History Tobacco Use Types Packs/Day Years [...] Note - Juan Carlos ProviderMD - 04/11/2021 9:48 AM CDT ED [...] Communication Barrier : None Primary Language : Stateless Any Spiritual/Cultural Needs or Requests : No [...]
--- OUTSIDE RECORDS SUMMARY | 2025-02-05 16:32 | XMS_ITS | Encounter Summary ---
Author Organization [employer] ([place], [place], [place], [place]) Address [address] [place] [address] Care Team Providers Care Woodwork Salvage Inspector Name Role Phone Unavailable Primary Care Provider Unavailabl e Encounter Details Date Type Department Care Team (Late st Contact Info) Description 04/07/2021 Transcribed Document [facility] [place] Family Medicine [address] [place] [address] ProviderJuan Carlos MD [address] [place], [place] [id number] Social History Tobacco Use Types Packs/Day Years [...] Historical ProviderMD - 04/07/2021 7:59 PM CDT [place] Suicide Severity Rating Scale (C-SSRS) Entered On: 04/08/2021 0:17 EDT Performed On: 04/08/2021 0:16 EDT by MARIANA ESTEVES RN [place] Suicide Severity Rating Scale (C-SSRS) CSSRS Past [...]
--- OUTSIDE RECORDS SUMMARY | 2025-02-05 16:32 | XMS_ITS | Encounter Summary ---
Author Organization [employer] ([place], [place], [place], [place]) Address [address] [place] [address] Care Team Providers Care Chief Scientist Name Role Phone Unavailable Primary Care Provider Unavailabl e Encounter Details Date Type Department Care Team (Late st Contact Info) Description 04/07/2021 Transcribed Document [facility] [place] [facility] [place] [address] ProviderJuan Carlos MD [address] [place] [address] Social History Tobacco Use Types Packs/Day [...] - Non - Urgent Tracking Group : [facility] ED [place] MARIANA ESTEVES RN - [...] PNED ; Probability: 0 ; Diagnosis Code: [id number] ED Height and Weight Height Source : Measured Height Entry Format : [place] Height, Feet : 5 ft(Converted to: 152 cm, 60 Inch) Height, Inches : 7 Inch(Converted to: 0 ft 7 Inch, 17.78 cm) Clinical Height : 170.18 cm Weight Source, ED : Standing scale Weight Entry Format : [place] Weight, Pounds : 128 lb Clinical Dosing Weight : 58.18 kg Body Surface Area (BSA) : 1.67 m2 Body Mass Index : 20.1 kg/m2 [place] Body Weight (IBW) : 61.16 kg MARIANA ESTEVES RN - 04/07/2021 21:15 EDT documented in this encounter Plan of Treatment Not on file documented as of this encounter Visit Diagnoses Not on filedocumented in this encounter
--- OUTSIDE RECORDS SUMMARY | 2025-02-05 16:32 | XMS_ITS | Encounter Summary ---
Author Organization [employer] ([place], [place], [place], [place]) Address [address] [place] [address] Care Team Providers Care Wood Machine Carver Name Role Phone Unavailable Primary Care Provider Unavailabl e Encounter Details Date Type Department Care Team (Late st Contact Info) Description 04/07/2021 Transcribed Document [facility] [place] Family Medicine [facility] [place] [address] ProviderJuan Carlos MD [address] [place] [address] Social History Tobacco Use Types [...] Historical ProviderMD - 04/07/2021 11:58 PM CDT documented in this encounter Plan of Treatment Not on file documented as of this encounter Visit Diagnoses Not on filedocumented in this encounter
--- OUTSIDE RECORDS SUMMARY | 2025-02-05 16:32 | XMS_ITS | Referral Summary ---
Author Organization [employer] ([place], [place], [place], [place]) Address [address] [place] [address] Care Team Providers Care Sales Strategy Manager Name Role Phone Unavailable Primary Care [...]
--- OUTSIDE RECORDS SUMMARY | 2025-02-05 16:32 | XMS_ITS | Encounter Summary ---
Author Organization [employer] ([place], [place], [place], [place]) Address [address] [place] [address] Care Team Providers Care Bat Person Name Role Phone Unavailable Primary Care Provider Unavailabl e Encounter Details Date Type Department Care Team (Late st Contact Info) Description 04/10/2021 Transcribed Document [facility] Radiology [address] [place] [address] Herbie Srivastava MD [address] [place] [address] Dept[place] [address] Social History Tobacco Use Types [...] 9:09 AM EDT Electronically signed by Chana [facility] Conversion Book Illustrator Cerner at 11/21/2022 11:49 PM CDT documented in this encounter Plan of Treatment Not on file documented as of this encounter Visit Diagnoses Not on filedocumented in this encounter
== END 2025-02-05 23:59 | disposition home or self-care (01) ==
LOC: LAB.DROPOF 16:30
PROVIDERS: PCP Obstetrics & Gynecology; Visit Provider Obstetrics & Gynecology
DX: O09.299 Supervision of pregnancy with other poor reproductive or obstetric history, unspecified trimester (principal); O34.219 Maternal care for unspecified type scar from previous cesarean delivery; Z3A.00 Weeks of gestation of pregnancy not specified
CPT/HCPCS: 86403

== ENCOUNTER 2025-02-07 19:42 | Outpatient (CLI) | payer OTHER, SELFPAY ==
[2025-02-07 19:45] VITALS: BMI 25.9
--- OUTSIDE RECORDS SUMMARY | 2025-02-07 19:46 | XMS_ITS | Encounter Summary ---
Author Organization [employer] ([place], [place], [place], [place]) Address [address] [place] [address] Care Team Providers Care Farm Butcher Name Role Phone Unavailable Primary Care Provider Unavailabl e Encounter Details Date Type Department Care Team (Late st Contact Info) Description 04/08/2021 Transcribed Document [facility] [place] Family Medicine [facility] [place] [address] ProviderJuan Carlos MD [address] [place] [address] Social History Tobacco Use Types [...]
--- OUTSIDE RECORDS SUMMARY | 2025-02-07 19:46 | XMS_ITS | Encounter Summary ---
Author Organization [employer] ([place], [place], [place], [place]) Address [address] [place] [address] Care Team Providers Care Vacuum Tester Cans Name Role Phone Unavailable Primary Care Provider Unavailabl e Encounter Details Date Type Department Care Team (Late st Contact Info) Description 04/07/2021 Transcribed Document [facility] [place] [address] [place] [address] ProviderJuan Carlos MD [address] [place], [place] [id number] Social History Tobacco Use Types Packs/Day Years [...] Historical ProviderMD - 04/07/2021 7:59 PM CDT [place] Suicide Severity Rating Scale (C-SSRS) Entered On: 04/08/2021 0:17 EDT Performed On: 04/08/2021 0:16 EDT by MARIANA ESTEVES RN [place] Suicide Severity Rating Scale (C-SSRS) CSSRS Past [...]
--- OUTSIDE RECORDS SUMMARY | 2025-02-07 19:46 | XMS_ITS | Encounter Summary ---
Author Organization [employer] ([place], [place], [place], [place]) Address [address] [place] [address] Care Team Providers Care Retread Supervisor Name Role Phone Unavailable Primary Care Provider Unavailabl e Encounter Details Date Type Department Care Team (Late st Contact Info) Description 04/11/2021 Transcribed Document [facility] [place] [facility] [place] [address] ProviderJuan Carlos [place] [address] Social History Tobacco Use Types [...] : 3 - Urgent Tracking Group : [facility] ED [facility] Harleen Brown RN - [...] caused by 2019 novel coronavirus (SNOMED CT :[id number] ) Name of Problem: Disease caused by 2019 novel coronavirus ; Recorder: SYSTEM, SYSTEM; Confirmation: Confirmed ; Classification: Medical ; Code: [id number] ; Last Updated: 04/07/2021 22:55 EDT ; Life Cycle Date: 04/07/2021 ; Life Cycle Status: Active ; Vocabulary: SNOMED CT ; Comments: 04/07/2021 22:55 - SYSTEM, SYSTEM Problem added by a rule: [id number]. Diagnoses(Active) Vaginal bleeding Date: 04/11/2021 ; Diagnosis Type: Reason For Visit ; Confirmation: Complaint of ; Clinical Dx: Vaginal bleeding ; Classification: Medical ; Clinical Service: Non-Specified ; Code: PNED ; Probability: 0 ; Diagnosis Code: [id number] ED Height and Weight Height Source : Measured Height Entry Format : [place] Height, Feet : 5 ft(Converted to: 152 cm, 60 Inch) Height, Inches : 7 Inch(Converted to: 0 ft 7 Inch, 17.78 cm) Clinical Height : 170.18 cm Weight Source, ED : Standing scale Weight Entry Format : [place] Weight, Pounds : 128 lb Clinical Dosing Weight : 58.18 kg Body Surface Area (BSA) : 1.67 m2 Body Mass Index : 20.1 kg/m2 [place] Body Weight (IBW) : 61.16 kg Harleen Brown RN - 04/11/2021 10:10 EDT documented in this encounter Plan of Treatment Not on file documented as of this encounter Visit Diagnoses Not on filedocumented in this encounter
--- OUTSIDE RECORDS SUMMARY | 2025-02-07 19:46 | XMS_ITS | Clinical Summary ---
Author Organization [facility] [place] [facility] Address [address] [place] [address] Care Team Providers Care Assembler Dry Cell And Battery Name Role Phone Krysten Burt MD Primary [...] (10/02/2021): Added automatically from request for surgery [id number] Encounters Date Type Department Care Team Description 11/10/2024 Orders Only External Location [address] [place] [address] María Ibarra DO from Last 3 Months [...] in a prison (including now)? No 03/27/2024 [place] Depression Scale Answer Date Recorded [place] Depression Scale Total 8 12/07/2021 The thought [...] 12/01/2023 11/30/2022, 11/30/2022, 07/15/2022, Additional history exists MAS-HZYWP-11 Vaccine ( - season) 2024 [facility]- SDOH Screenings 09/27/2024 [facility]-Adult SDOH Screenings 09/27/2024 03/27/2024 [facility]-Influenza Vaccine (#1) 2025 05/09/2013, [facility]-Depression Screening 06/14/2025 024, 06/14/2024, 12/07/2021, Additional [...] PM EDT 11/30/2022 4:07 PM EDT Narrative [facility] - 12/02/2022 9:37 AM EDT This test is performed by the NimbusBase m2000 instrument for Real Time PCR C. trachomatis and N. gonorrhea. This test is FDA approved for use with endocervical, vaginal, and urine specimens. This test is used for clinical purposes. It should not be regarded as invesigational or for research. The [facility] Clinical Microbiology Laboratory is certified under the Clinical Laboratory Improvement Amendments of 1988 (CLIA-88) as qualified to perform high complexity clinical laboratory testing. us Rhea Ramos MD LAB MICROBIOLOGY - GENERAL ORDERABLES Final Result [facility] [address] [place] [address] * Pap Test (11/30/2022 3:09 PM EDT) Case Report Cytology Case: [id number] Authorizing Provider: Rhea Ramos MD Collected: 11/30/2022 1509 Ordering Location: Medical Office Building Received: 11/30/2022 1615 Obstetrics and Gynecology First Screen: Shayy Gordon Specimen: ThinPrep Pap Test, Liquid-Based Cervical/Vaginal, CERVICAL/VAGINAL 12/06/2022 3:06 PM EDT [facility] Interpretation NEGATIVE FOR INTRAEPITHELIAL LESION OR MALIGNANCY 12/06/2022 3:06 PM EDT [facility] at 1506 EDT Specimen Adequacy Satisfactory for evaluation; endocervical/villanueva sformation zone component present. Slide imaged by the ThinPrep Imaging system and selected 22 corado reviewed then full manual screening. 12/06/2022 3:06 PM EDT [facility] Cervical cytology is a screening [...] results is suggested (please call Microbiology at [phone] for results). 12/06/2022 3:06 PM EDT [facility] Menstrual Status Cyclic 12/07/19 3:06 PM EDT [facility] Contraceptive History Not Applicable 12/06/2022 3:06 PM EDT [facility] Screening Type Routine Screen 2022 3:06 PM EDT [facility] High Risk? No 12/06/2022 3:06 PM EDT [facility] HPV Testing Requested? No HPV Testing Requested 12/06/2022 3:06 PM EDT [facility] Previous Cancer History No 12/06/2022 3:06 PM EDT [facility] Clinical Information R10.2 - Pelvic and perineal pain [ICD-10-CM] 12/06/2022 3:06 PM EDT [facility] Last Menstrual Period 10/25/2022 12/06/2022 3:06 PM EDT [facility] Swab Vaginal and cervical cytologic material / Unknown Non-blood Collection / Unknown 11/30/2022 3:09 PM EDT 11/30/2022 4:15 PM EDT Rhae Ramos MD LAB CYTOLOGY ORDERABLES Fi nal Result [facility] [address] [place] [address] * HIV 1 & 2 Antibody/Antigen Screen (04/30/2021 8:23 PM EDT) Pathologist [facility] HIV 1 & 2 Antibody/Anti gen Screen Nonreactive Nonreactive 04/30/2021 8:23 PM EDT [facility] Blood Venous blood specimen / Unknown 04/30/2021 3:09 PM EDT Rhea Ramos MD LAB BLOOD ORDERABLES Final Result [facility] [address] [place] [address] * Hepatitis C Antibody (04/30/2021 8:21 PM EDT) Pathologist [facility] Hepatitis C Antibody Negative Negative 04/30/2021 8:21 PM EDT [facility] Blood Venous blood specimen / Unknown 04/30/2021 3:09 PM EDT Rhea Ramos MD LAB BLOOD ORDERABLES Final Result [facility] [address] [place] [address] from Last 3 Months or Most Recently Relevant to Health Maintenance Insurance MEDICAID Advance Directives * Full Code (Latest Code Status on File) Date Activated Date Inactivated Comments 10/23/2021 12:34 PM 10/26/2021 4:44 PM Question Answer Comments Patient has decision-making capacity? Yes Care Teams Assembler Dry Cell And Battery Relationship Specialty Start Date End Date Krysten Burt MD [address] [facility] [address] [place] [address] PCP - General Adolescent Medicine 12/29/22
--- OUTSIDE RECORDS SUMMARY | 2025-02-07 19:46 | XMS_ITS | Encounter Summary ---
Author Organization [employer] ([place], [place], [place], [place]) Address [address] [place] [address] Care Team Providers Care Dental Director Name Role Phone Unavailable Primary Care Provider Unavailabl e Encounter Details Date Type Department Care Team (Late st Contact Info) Description 04/07/2021 Transcribed Document [facility] [place] [facility] [place] [address] ProviderJuan Carlos MD [facility] [place], [place] [id number] Social History Tobacco Use Types Packs/Day Years [...] Communication Barrier : None Primary Language : [place] General Information Comment : seen by provider [...]
--- OUTSIDE RECORDS SUMMARY | 2025-02-07 19:46 | XMS_ITS | Encounter Summary ---
Author Organization [email or web address] ([place], [place], [place], [place]) Address [address] [place] [address] Care Team Providers Care Microfiche Camera Operator Name Role Phone Unavailable Primary Care Provider Unavailabl e Encounter Details Date Type Department Care Team (Late st Contact Info) Description 04/11/2021 Transcribed Document [facility] [place] [facility] [place] [address] ProviderJuan Carlos [place] [facility] [address] Social History Tobacco Use Types [...] 04/11/2021 14:35 EDT Electronically signed by Chana [facility] Conversion Condenser Cleaner Cerner at 11/21/2022 11:36 PM CDT documented in this encounter Plan of Treatment Not on file documented as of this encounter Visit Diagnoses Not on filedocumented in this encounter
--- OUTSIDE RECORDS SUMMARY | 2025-02-07 19:46 | XMS_ITS | Encounter Summary ---
Author Organization [employer] ([place], [place], [place], [place]) Address [address] [place] [address] Care Team Providers Care Road Roller Operator Hot Mix Name Role Phone Unavailable Primary Care Provider Unavailabl e Encounter Details Date Type Department Care Team (Late st Contact Info) Description 04/10/2021 Transcribed Document [facility] [place] [facility] [place] [address] ProviderJuan Carlos MD [address], [place] [id number] Social History Tobacco Use Types Packs/Day Years [...] Historical ProviderMD - 04/10/2021 5:27 AM CDT [place] Suicide Severity Rating Scale (C-SSRS) Entered On: 04/10/2021 6:47 EDT Performed On: 04/10/2021 6:46 EDT by Nasreen Aldridge RN-PATIENT CARE BEDSIDE NON-EXEMPT [place] Suicide Severity Rating Scale (C-SSRS) CSSRS Past [...]
--- OUTSIDE RECORDS SUMMARY | 2025-02-07 19:46 | XMS_ITS | Encounter Summary ---
Author Organization [employer] ([place], [place], [place], [place]) Address [address] [place] [address] Care Team Providers Care Smoking Pipe Driller And Threader Name Role Phone Unavailable Primary Care Provider Unavailabl e Encounter Details Date Type Department Care Team (Late st Contact Info) Description 04/07/2021 Transcribed Document [facility] [place] [facility] [place] [address] ProviderJuan Carlos MD [address] [place] [address] Social History Tobacco Use Types Packs/Day [...] - Non - Urgent Tracking Group : [facility] ED [place] MARIANA ESTEVES RN - [...] PNED ; Probability: 0 ; Diagnosis Code: [id number] ED Height and Weight Height Source : Measured Height Entry Format : [place] Height, Feet : 5 ft(Converted to: 152 cm, 60 Inch) Height, Inches : 7 Inch(Converted to: 0 ft 7 Inch, 17.78 cm) Clinical Height : 170.18 cm Weight Source, ED : Standing scale Weight Entry Format : [place] Weight, Pounds : 128 lb Clinical Dosing Weight : 58.18 kg Body Surface Area (BSA) : 1.67 m2 Body Mass Index : 20.1 kg/m2 [place] Body Weight (IBW) : 61.16 kg MARIANA ESTEVES RN - 04/07/2021 21:15 EDT documented in this encounter Plan of Treatment Not on file documented as of this encounter Visit Diagnoses Not on filedocumented in this encounter
--- OUTSIDE RECORDS SUMMARY | 2025-02-07 19:46 | XMS_ITS | Encounter Summary ---
Author Organization [employer] ([place], [place], [place], [place]) Address [address] [place] [address] Care Team Providers Care Bulbs Farmworker Name Role Phone Unavailable Primary Care Provider Unavailabl e Encounter Details Date Type Department Care Team (Late st Contact Info) Description 04/11/2021 Transcribed Document [facility] [place] [facility] [place] [address] ProviderJuan Carlos MD [facility] [place] [address] Social History Tobacco Use Types [...] Patient reports brownish-red vaginal spotting that is c wpf developer than her menstrual period. This began yesterday and has continued today. She denies any abdominal pain or pelvic cramping. Also denies fever, nausea/vomiting, vaginal discharge. Patient tested positive for COVID-19 4 days ago and yesterday received the monoclonal antibody infusion. She currently follows with an BOOTH SUPERVISOR at the [facility], however is in the process of transitioning [...] April 11, 2021 14:10 EDT Encounter info: [id number], BEREKET Diaz [facility], Emergency Room, 04/11/2021 - 04/11/2021 . [...] discussed strict pelvic rest and follow-up with BOOTH SUPERVISOR. Patient voices understanding and agreement with plan. [...] pelvic rest as discussed. Follow-up with your BOOTH SUPERVISOR in 2 days for repeat assessment., Follow up with primary care provider Within 2 to 3 days Call for follow up appointment. Return to the ER for any new or worsening symptoms as discussed, especially fever, persistent pelvic pain, vaginal bleeding greater than 2 pads/hour. Recommend pelvic rest as discussed. Follow-up with your BOOTH SUPERVISOR in 2 days for repeat assessment., Follow up with primary care provider Within 2 to 3 days Call for follow up appointment. Return to the ER for any new or worsening symptoms as discussed, especially fever, persistent pelvic pain, vaginal bleeding greater than 2 pads/hour. Recommend pelvic rest as discussed. Follow-up with your BOOTH SUPERVISOR in 2 days for repeat assessment.. Counseled: Patient, Regarding diagnosis, Regarding diagnostic results, Regarding treatment plan, Patient indicated understanding of instructions. documented in this encounter Plan of Treatment Not on file documented as of this encounter Visit Diagnoses Not on filedocumented in this encounter
--- OUTSIDE RECORDS SUMMARY | 2025-02-07 19:46 | XMS_ITS | Encounter Summary ---
Author Organization [employer] ([place], [place], [place], [place]) Address [address] [place] [address] Care Team Providers Care Semiconductor Testing Group Leader Name Role Phone Unavailable Primary Care Provider Unavailabl e Encounter Details Date Type Department Care Team (Late st Contact Info) Description 04/11/2021 Transcribed Document [facility] [place] [facility] [place] [address] ProviderJuan Carlos MD [address] [place] [address] Social History Tobacco [...] Carlos ProviderMD - 04/11/2021 2:23 PM CDT [place] [phone] LIBERT[place] WEBBNE :2000 Visit Time:04/11/2021 Your Visit [...] pelvic rest as discussed. Follow-up with your TOURIST ADVISER in 2 days for repeat assessment. Allergies [...] provider. Document Revised: 08/31/2018 Document Reviewed: 10/21/2017 [employer] Patient Education ?? 2020 [employer] Vaginal Bleeding During , First Trimester [...] this is safe. General instructions ??? Take aiws-kby-pfyomuq and prescription medicines only as told by [...] provider. Document Revised: 11/13/2019 Document Reviewed: 10/27/2017 [employer] Patient Education ?? 2020 [employer] Subchorionic Hematoma A subchorionic hematoma is [...] Reviewed: 09/20/2017 Else[employer] Patient Education ?? 2020 [employer] Emergency Awareness and Preventative Care STROKE [...] Assistance with quitting is available by contacting 3-358-NKFNNOW. This is a free resource providing counseling, support, and referral. Or you may contact your personal physician. [place] Suicide Prevention Lifeline: The National Suicide Prevention [...] was given the opportunity to ask questions. Patient/Hvac Mechanical Engineer Name: Patient/Hvac Mechanical Engineer Signature: Relationship to Patient: Clinician/Hospital Hvac Mechanical Engineer Signature: Please Provide a Telephone Number Where You Can Be Reached: Is it Permissible To Leave a Message? Date: Electronically signed by Chana, [facility] Conversion Senior Sous Chef Cerner at 11/21/2022 11:34 PM CDT documented in this encounter Plan of Treatment Not on file documented as of this encounter Visit Diagnoses Not on filedocumented in this encounter
--- OUTSIDE RECORDS SUMMARY | 2025-02-07 19:46 | XMS_ITS | Encounter Summary ---
Author Organization [employer] ([place], [place], [place], [place]) Address [address] [place] [address] Care Team Providers Care Family Welfare Social Work Professor Name Role Phone Unavailable Primary Care Provider Unavailabl e Encounter Details Date Type Department Care Team (Late st Contact Info) Description 04/08/[address] [facility] [place] [facility] [place] [address] ProviderJuan Carlos MD [address] [place] [address] Social History Tobacco Use Types [...] Carlos ProviderMD - 04/08/2021 12:05 AM CDT [place] [phone] LIBERT[address] WEBBNE :2000 Visit Time:04/07/2021 Your Visit [...] take Tylenol as needed. Follow-up with your ORDER FULFILLMENT SPECIALIST. Allergies No Known Medication Allergies Immunizations This [...] areas. Get rest and stay hydrated. Take zvtm-eul-cbueraa medicines, such as acetaminophen, to help you [...] provider. Document Revised: 07/10/2020 Document Reviewed: 07/10/2020 [employer] Patient Education ?? 2020 [employer] COVID-19: How to Protect Yourself and Others Know how it spreads ??? There is currently no vaccine to prevent coronavirus disease 2019 (COVID-19). ??? The best way to prevent illness is to avoid being exposed to this virus. ??? The virus is thought to spread mainly from matfuq-ry-hreipi. ? Between people who are in close [...] are not readily available, use a hand fiber product cutting machine operator that contains at least 60% alcohol. Cover [...] are at higher risk of getting very sick.www.cdc.gov/coronavirus/2019-ncov/ifga-nohtx-ltnlgsvrtku/jxbtbl-dk-swmphh -risk.html Cover your mouth and nose with [...] available, clean your hands with a hand fiber product cutting machine operator that contains at least 60% alcohol. Clean and disinfect ??? Clean AND disinfect frequently touched surfaces daily. This includes tables, doorknobs, light switches, countertops, handles, desks, phones, keyboards, toilets, faucets, and sinks. www.cdc.gov/coronavirus/2019-ncov/nogqfkk-wqvbgpu-gmhy/xdpxqywjeajp-jnam-hbsr. html ??? If surfaces are dirty, clean [...] Reviewed: 02/14/2020 Elsevier Patient Education ?? 2020 [employer] COVID-19 Frequently Asked Questions COVID-19 (coronavirus disease) [...] the coronavirus come from? In July 2019, [place] told the World Health Organization (WHO) about several cases of lung disease (human respiratory illness). These cases were linked to an open seafood and livestock market in the [facility]. The link to the seafood [...] and virus naming ??? World Health Organization: www.who.int/emergencies/diseases/bzafr-tfjyqjodpgv-8384/technical-guidance Who is at risk for complications from [...] water are not available, use alcohol-based hand fiber product cutting machine operator. ??? Avoid touching your face, mouth, nose, [...] (CDC): www.cdc.gov/coronavirus/2019-ncov/travelers ??? World Health Organization (WHO): www.who.int/emergencies/diseases/vuegy-ovenonnimmx-3759/travel-advice What should I do if I am sick? General instructions to stop the spread of infection ??? Wash your hands often with soap and water for at least 20 seconds. If soap and water are not available, use alcohol-based hand fiber product cutting machine operator. ??? Cough or sneeze into a tissue, [...] in hot, soapy water or use a cash grain farmer. Air-dry your dishes. ??? Wash laundry in [...] Organization (WHO) ??? Information and news updates: www.who.int/emergencies/diseases/aqflm-vwlzqcsbjec-3183 ??? Coronavirus health topic: www.who.int/health-topics/coronavirus ??? Questions and answers on COVID-19: www.who.int/news-room/q-a-detail/r-x-kmhekvccaigrx ??? Global tracker: [employer] Indian Academy of Pediatrics (AAP) ??? Information for families: www.healthychildren.org/Macedonian/health-issues/conditions/chest-lungs/Pages/201 6-Sqtwt-Ncbzvhdilih.aspx The coronavirus situation is changing rapidly. Check [...] provider. Document Revised: 07/22/2020 Document Reviewed: 07/22/2020 [employer] Patient Education ?? 2020 [employer] Emergency Awareness and Preventative Care STROKE [...] Assistance with quitting is available by contacting 8-487-GAQFNOW. This is a free resource providing counseling, support, and referral. Or you may contact your personal physician. [place] Suicide Prevention Lifeline: The National Suicide Prevention [...] given the opportunity to ask questions. Patient/Manager Hematology Name: Patient/Manager Hematology Signature: Relationship to Patient: Clinician/Hospital Manager Hematology Signature: Please Provide a Telephone Number Where You Can Be Reached: Is it Permissible To Leave a Message? Date: Electronically signed by [facility] Conversion Scrap Crane Operator Yu at 11/21/2022 11:32 PM CDT documented in this encounter Plan of Treatment Not on file documented as of this encounter Visit Diagnoses Not on filedocumented in this encounter
--- OUTSIDE RECORDS SUMMARY | 2025-02-07 19:46 | XMS_ITS | Encounter Summary ---
Author Organization [employer] ([place], [place], [place], [place]) Address [address] [place] [address] Care Team Providers Care General Farm Manager Name Role Phone Unavailable Primary Care Provider Unavailabl e Encounter Details Date Type Department Care Team (Late st Contact Info) Description 04/10/2021 Transcribed Document [facility] [place] [facility] [place] [address] ProviderJuan Carlos MD [facility] [place] [id number] Social History Tobacco Use Types Packs/Day Years [...] Communication Barrier : None Primary Language : Dominican Any Spiritual/Cultural Needs or Requests : No [...]
--- OUTSIDE RECORDS SUMMARY | 2025-02-07 19:46 | XMS_ITS | Encounter Summary ---
Author Organization [employer] ([place], [place], [place], [place]) Address [address] [place] [address] Care Team Providers Care Customer Liaison Name Role Phone Unavailable Primary Care Provider Unavailabl e Encounter Details Date Type Department Care Team (Late st Contact Info) Description 04/10/2021 Transcribed Document [facility] [place] [facility] [place] [address] ProviderJuan Carlos MD [address] [place] [address] Social History Tobacco Use Types [...] Cavazos MD - 04/10/2021 8:46 AM CDT [place] [id number] LIBERTAD DE LEONNE :2000 Visit Time:04/10/2021 Your [...] Risk [phone] Where: [address] [place] [id number]- [facility] (1) Follow Up with For a clinic referral service , just dial: [phone] (WELL) Our experts will provide you with [...] water are not available, use alcohol-based hand staffing manager. ??? Avoid touching your mouth, face, eyes, [...] pump parts after expressing milk. Follow the continuous yarn dyeing machine operator's instructions to clean and disinfect all pump [...] (CDC): www.cdc.gov/coronavirus/2019-ncov/ ??? World Health Organization (WHO): www.who.int/news-room/q-a-detail/o-j-fl-wzgac-17-jljrwnnyy-uoeqzjqtbr-vbd-snhm stfeeding ??? [place] [employer] Obst[employer]ians and Gynecologists (ACOG): www.acog.org/patient-resources/faqs//mewaetxcnda-knbmutfqy-rtd-breast feeding Questions to ask your health care [...] provider. Document Revised: 07/25/2020 Document Reviewed: 07/25/2020 [employer] Patient Education ?? 2020 V[employer]ur[employer]. 10 Things You Can Do to Manage [...] clean your hands with an alcohol-based hand staffing manager that contains at least 60% alcohol. 8. [...] Reviewed: 07/10/2020 Elsevier Patient Education ?? 2020 [employer] Inc. Emergency Awareness and Preventative Care STROKE [...] Assistance with quitting is available by contacting 6-077-MTGCNOW. This is a free resource providing counseling, support, and referral. Or you may contact your personal physician. [employer] Suicide Prevention Lifeline: The National Suicide Prevention [...] was given the opportunity to ask questions. Patient/Supervisor Sign Shop Name: Patient/Supervisor Sign Shop Signature: Relationship to Patient: Clinician/Hospital Supervisor Sign Shop Signature: Please Provide a Telephone Number Where You Can Be Reached: Is it Permissible To Leave a Message? Date: Electronically signed by Chana [facility] Conversion Demand Planning Manager Yu at 11/21/2022 11:37 PM CDT documented in this encounter Plan of Treatment Not on file documented as of this encounter Visit Diagnoses Not on filedocumented in this encounter
--- OUTSIDE RECORDS SUMMARY | 2025-02-07 19:46 | XMS_ITS | Encounter Summary ---
Author Organization [employer] ([place], [place], [place], [place]) Address [address] [place] [address] Care Team Providers Care Valve Steamer Name Role Phone Unavailable Primary Care Provider Unavailabl e Encounter Details Date Type Department Care Team (Late st Contact Info) Description 04/11/2021 Transcribed Document [facility] [place] Medicine Replaced by [facility] [place] [address] ProviderJuan Carlos MD [address] [place] [address] Social History Tobacco Use Types [...] bass Emily, RAYMOND - 04/11/2021 14:33 EDT documented in this encounter Plan of Treatment Not on file documented as of this encounter Visit Diagnoses Not on filedocumented in this encounter
--- OUTSIDE RECORDS SUMMARY | 2025-02-07 19:46 | XMS_ITS | Encounter Summary ---
Author Organization [employer] ([place], [place], [place], [place]) Address [address] [place] [address] Care Team Providers Care Sterilizer Operator Name Role Phone Unavailable Primary Care Provider Unavailabl e Encounter Details Date Type Department Care Team (Late st Contact Info) Description 04/11/2021 Transcribed Document [facility] [place] [address] [place] [address] ProviderJuan Carlos MD [address] [place], [place] [address] Social History Tobacco Use Types Packs/Day Years [...] Historical ProviderMD - 04/11/2021 9:48 AM CDT [place] Suicide Severity Rating Scale (C-SSRS) Entered On: 04/11/2021 12:05 EDT Performed On: 04/11/2021 12:04 EDT by Lacey Chau RN [place] Suicide Severity Rating Scale (C-SSRS) CSSRS Past Month Wish to be : No CSSRS Past Month Suicidal Thoughts : No CSSRS Lifetime Suicide Behavior : No Suicide Severity Rating Score : 0 Suicide Severity Rating : No Additional Care Required at this time Lacey Chau RN - 04/11/2021 12:04 EDT Electronically signed by Chana [facility] Conversion Firer Locomotive Cerner at 11/21/2022 11:45 PM CDT documented in this encounter Plan of Treatment Not on file documented as of this encounter Visit Diagnoses Not on filedocumented in this encounter
--- OUTSIDE RECORDS SUMMARY | 2025-02-07 19:46 | XMS_ITS | Encounter Summary ---
Author Organization [employer] ([place], [place], [place], [place]) Address [address] [place] [address] Care Team Providers Care Control Systems Eng Name Role Phone Unavailable Primary Care Provider Unavailabl e Encounter Details Date Type Department Care Team (Late st Contact Info) Description 04/11/2021 Transcribed Document [facility] [place] [address] [place] [address] ProviderJuan Carlos MD [address], [place] [id number] Social History Tobacco Use Types Packs/Day Years [...]
--- OUTSIDE RECORDS SUMMARY | 2025-02-07 19:46 | XMS_ITS | Encounter Summary ---
Author Organization [employer] ([place], [place], [place], [place]) Address [address] [place] [address] Care Team Providers Care Municipal Court Judge Name Role Phone Unavailable Primary Care Provider Unavailabl e Encounter Details Date Type Department Care Team (Late st Contact Info) Description 04/10/2021 Transcribed Document [facility] [place] [facility] [address] ProviderJuan Carlos [place] [address] Social History Tobacco Use Types [...]
--- OUTSIDE RECORDS SUMMARY | 2025-02-07 19:46 | XMS_ITS | Encounter Summary ---
Author Organization [employer] ([place], [place], [place], [place]) Address [address] [place] [address] Care Team Providers Care Video Game Producer Name Role Phone Unavailable Primary Care Provider Unavailabl e Encounter Details Date Type Department Care Team (Late st Contact Info) Description 04/10/2021 Transcribed Document [facility] Radiology [address] [place] [address] Herbie Srivastava MD [address] [place] [address] Dept[place] [address] Social History Tobacco Use Types [...] 9:09 AM EDT Electronically signed by Chana [facility] Conversion Videotape Editor Cerner at 11/21/2022 11:49 PM CDT documented in this encounter Plan of Treatment Not on file documented as of this encounter Visit Diagnoses Not on filedocumented in this encounter
--- OUTSIDE RECORDS SUMMARY | 2025-02-07 19:46 | XMS_ITS | Referral Summary ---
Author Organization [employer] ([place], [place], [place], [place]) Address [address] [place] [address] Care Team Providers Care Business Office Assistant Name Role Phone Unavailable Primary Care [...]
--- OUTSIDE RECORDS SUMMARY | 2025-02-07 19:46 | XMS_ITS | Encounter Summary ---
Author Organization [employer] ([place], [place], [place], [place]) Address [address] [place] [address] Care Team Providers Care Nurse Chemical Dependency Name Role Phone Unavailable Primary Care Provider Unavailabl e Encounter Details Date Type Department Care Team (Late st Contact Info) Description 04/07/2021 Transcribed Document [facility] [place] Medicine [address] [place] [address] ProviderJuan Carlos MD [address] [place], [place] [id number] Social History Tobacco Use Types Packs/Day Years [...]
--- OUTSIDE RECORDS SUMMARY | 2025-02-07 19:46 | XMS_ITS | Encounter Summary ---
Author Organization [employer] ([place], [place], [place], [place]) Address [address] [place] [address] Care Team Providers Care Identification Clerk Name Role Phone Unavailable Primary Care Provider Unavailabl e Encounter Details Date Type Department Care Team (Late st Contact Info) Description 04/07/2021 Transcribed Document [facility] [place] Medicine [facility] [place] [address] ProviderJuan Carlos MD [address] [place] [address] Social History Tobacco Use Types [...] 11:58 PM CDT Electronically signed by Chana [facility] Conversion Laundry Worker Martinener at 11/21/2022 11:36 PM CDT documented in this encounter Plan of Treatment Not on file documented as of this encounter Visit Diagnoses Not on filedocumented in this encounter
--- OUTSIDE RECORDS SUMMARY | 2025-02-07 19:46 | XMS_ITS | Encounter Summary ---
Author Organization [employer] ([place], [place], [place], [place]) Address [address] [place] [address] Care Team Providers Care Follow Up Manager Name Role Phone Unavailable Primary Care Provider Unavailabl e Encounter Details Date Type Department Care Team (Late st Contact Info) Description 04/07/2021 Transcribed Document [facility] [place] [facility] [place] [address] ProviderJuan Carlos MD [address] [place] [address] Social History Tobacco Use Types [...] COVID-19; Twin in first trimester Author: AMAURY ACSTELLANOS PA Basic Information Time seen: Date & [...] transitioning her care from her OB at [facility] her sleep as to a high school academic coach at . Denies any abdominal pain or [...] COVID-19: What Your Test Results Mean - [facility]. Follow up with: Follow up with primary care provider Within 2 to 3 days Call for follow up appointment. Return to the ER for any new or worsening symptoms as discussed, especially difficulty breathing or low O2 sat below 90%. Drink plenty of fluids and rest. You may take Tylenol as needed. Follow-up with your SELF PROPELLED HOT MIX ROLLER OPERATOR.; , Follow up with primary care provider Within 2 to 3 days Call for follow up appointment. Return to the ER for any new or worsening symptoms as discussed, especially difficulty breathing or low O2 sat below 90%. Drink plenty of fluids and rest. You may take Tylenol as needed. Follow-up with your SELF PROPELLED HOT MIX ROLLER OPERATOR.. Counseled: Patient, Regarding diagnosis, Regarding diagnostic results, Regarding treatment plan, Patient indicated understanding of instructions. documented in this encounter Plan of Treatment Not on file documented as of this encounter Visit Diagnoses Not on filedocumented in this encounter
--- OUTSIDE RECORDS SUMMARY | 2025-02-07 19:46 | XMS_ITS | Encounter Summary ---
Author Organization [employer] ([place], [place], [place], [place]) Address [address] [place] [address] Care Team Providers Care Insulation Inspector Name Role Phone Unavailable Primary Care Provider Unavailabl e Encounter Details Date Type Department Care Team (Late st Contact Info) Description 04/10/2021 Transcribed Document [facility] [place] [facility] [place] [address] ProviderJuan Carlos MD [facility] [place] [address] Social History Tobacco Use Types [...] EDT DCP GENERIC CODE Tracking Group : [facility] Tracking Acuity : 3 - Urgent [...] caused by 2019 novel coronavirus (SNOMED CT :[id number] ) Name of Problem: Disease caused by 2019 novel coronavirus ; Recorder: SYSTEM, SYSTEM; Confirmation: Confirmed ; Classification: Medical ; Code: [id number] ; Last Updated: 04/07/2021 22:55 EDT ; Life Cycle Date: 04/07/2021 ; Life Cycle Status: Active ; Vocabulary: SNOMED CT ; Comments: 04/07/2021 22:55 - SYSTEM, SYSTEM Problem added by a rule: [id number]. Diagnoses(Active) Medication administration Date: 04/10/2021 ; Diagnosis Type: Reason For Visit ; Confirmation: Complaint of ; Clinical Dx: Medication administration ; Classification: Medical ; Clinical Service: Emergency medicine ; Code: PNED ; Probability: 0 ; Diagnosis Code: [id number] ED Height and Weight Height Source : Measured Height Entry Format : [place] Height, Feet : 5 ft(Converted to: 152 cm, 60 Inch) Height, Inches : 7 Inch(Converted to: 0 ft 7 Inch, 17.78 cm) Clinical Height : 170.18 cm Weight Source, ED : Standing scale Weight Entry Format : [place] Weight, Pounds : 128 lb Clinical Dosing Weight : 58.18 kg Body Surface Area (BSA) : 1.67 m2 Body Mass Index : 20.1 kg/m2 [place] Body Weight (IBW) : 61.16 kg KIYA [...]
--- OUTSIDE RECORDS SUMMARY | 2025-02-07 19:46 | XMS_ITS | Encounter Summary ---
Author Organization [employer] ([place], [place], [place], [place]) Address [address] [place] [address] Care Team Providers Care Warehouse Consultant Name Role Phone Unavailable Primary Care Provider Unavailabl e Encounter Details Date Type Department Care Team (Late st Contact Info) Description 04/11/2021 Transcribed Document [facility] [place] [address] [place] [address] ProviderJuan Carlos MD [address] [place], [place] [id number] Social History Tobacco Use Types Packs/Day Years [...]
--- OUTSIDE RECORDS SUMMARY | 2025-02-07 19:46 | XMS_ITS | Clinical Summary ---
Author Organization [employer] ([place], [place], [place], [place]) Address [address] [place] [address] Care Team Providers Care Stringed Instrument Assembler Name Role Phone Unavailable Primary Care Provider [...]
--- OUTSIDE RECORDS SUMMARY | 2025-02-07 19:46 | XMS_ITS | Encounter Summary ---
Author Organization [employer] ([place], [place], [place], [place]) Address [address] [place] [address] Care Team Providers Care Dairy Cattle Farm Manager Name Role Phone Unavailable Primary Care Provider Unavailabl e Encounter Details Date Type Department Care Team (Late st Contact Info) Description 04/11/[address] [facility] [place] [facility] [place] [address] ProviderJuan Carlos MD [facility] [place], [place] [id number] Social History Tobacco Use Types Packs/Day Years [...] Communication Barrier : None Primary Language : Lithuanian Any Spiritual/Cultural Needs or Requests : No Currently in Unsafe Situation : No Lacey Chau RN - 04/11/2021 12:04 EDT Social Habits Smoking Status : Never (less than 100 in lifetime; none in last 30 days) Smokeless Tobacco Status : Never Desires Tobacco Cessation Calc : 0 Lacey Chua RN - 04/11/2021 12:04 EDT Social History [...]
--- OUTSIDE RECORDS SUMMARY | 2025-02-07 19:46 | XMS_ITS | Encounter Summary ---
Author Organization [employer] ([place], [place], [place], [place]) Address [address] [place] [address] Care Team Providers Care Regional Rehabilitation Director Name Role Phone Unavailable Primary Care Provider Unavailabl e Encounter Details Date Type Department Care Team (Late st Contact Info) Description 04/10/2021 Transcribed Document [facility] [place] [address] [place] [address] ProviderJuan Carlos MD [address] [place], [place] [address] Social History Tobacco Use Types Packs/Day Years [...]
--- OUTSIDE RECORDS SUMMARY | 2025-02-07 19:46 | XMS_ITS | Encounter Summary ---
Author Organization [employer] ([place], [place], [place], [place]) Address [address] [place] [address] Care Team Providers Care Applications Trainer Name Role Phone Unavailable Primary Care Provider Unavailabl e Encounter Details Date Type Department Care Team (Late st Contact Info) Description 04/10/2021 Transcribed Document [facility] Radiology [address] [place] [address] Herbie Méndez MD [address] [place] [address] Dept. [place] [address] Social History Tobacco Use Types [...] 1-Time . Notes: spoke to multiple Ob sap consultant, with recomendations, patient remains stable, US update [...] a clinic referral service , just dial: [phone] (WELL) Our experts will provide you with [...]
--- OUTSIDE RECORDS SUMMARY | 2025-02-07 19:46 | XMS_ITS | Encounter Summary ---
Author Organization [employer] ([place], [place], [place], [place]) Address [address] [place] [address] Care Team Providers Care Senior Support Analyst Name Role Phone Unavailable Primary Care Provider Unavailabl e Encounter Details Date Type Department Care Team (Late st Contact Info) Description 04/11/2021 Transcribed Document [facility] [place] [facility] [place] [address] ProviderJuan Carlos MD [address] [place] [address] Social History Tobacco Use Types [...] Historical ProviderMD - 04/11/2021 12:12 PM CDT documented in this encounter Plan of Treatment Not on file documented as of this encounter Visit Diagnoses Not on filedocumented in this encounter
--- OUTSIDE RECORDS SUMMARY | 2025-02-07 19:46 | XMS_ITS | Encounter Summary ---
Author Organization [employer] ([place], [place], [place], [place]) Address [address] [place] [address] Care Team Providers Care Sales Service Representative Name Role Phone Unavailable Primary Care Provider Unavailabl e Encounter Details Date Type Department Care Team (Late st Contact Info) Description 04/10/2021 Transcribed Document [facility] [place] [facility] [place] [address] ProviderJuan Carlos MD [address] [place] [address] Social History Tobacco Use Types [...] Cavazos MD - 04/10/2021 8:45 AM CDT [place] [id number] LIBERTAD DE LEONNE :2000 Visit Time:04/10/2021 Your [...] or High Risk [phone] Where: [address] [place] [id number]- [facility] (1) Follow Up with For a clinic referral service , just dial: [phone] (WELL) Our experts will provide you with [...] water are not available, use alcohol-based hand laundry tub maker. ??? Avoid touching your mouth, face, eyes, [...] pump parts after expressing milk. Follow the welding machine operator thermit's instructions to clean and disinfect all pump [...] (CDC): www.cdc.gov/coronavirus/2019-ncov/ ??? World Health Organization (WHO): www.who.int/news-room/q-a-detail/u-r-fd-ydwvf-15-kqepotscq-ojkawkdfuv-bch-qpfl stfeeding ??? Citizen Of [place] [employer] Obst[employer]ians and Gynecologists (ACOG): www.acog.org/patient-resources/faqs//awadzayeyup-potxqklbf-dok-breast feeding Questions to ask your health care [...] provider. Document Revised: 07/25/2020 Document Reviewed: 07/25/2020 e-channel Patient Education ?? 2020 [employer]. 10 Things You Can Do to Manage [...] clean your hands with an alcohol-based hand laundry tub maker that contains at least 60% alcohol. 8. [...] Reviewed: 07/10/2020 Elsevier Patient Education ?? 2020 e-channel Inc. Emergency Awareness and Preventative Care STROKE [...] Assistance with quitting is available by contacting 3-291-ZCXRNOW. This is a free resource providing counseling, support, and referral. Or you may contact your personal physician. [employer] Suicide Prevention Lifeline: The National Suicide Prevention [...] was given the opportunity to ask questions. Patient/Warp Clamper Name: Patient/Warp Clamper Signature: Relationship to Patient: Clinician/Hospital Warp Clamper Signature: Please Provide a Telephone Number Where You Can Be Reached: Is it Permissible To Leave a Message? Date: Electronically signed by Rommel Zayas Conversion Developmental Education Instructor Yu at 11/21/2022 11:36 PM CDT documented in this encounter Plan of Treatment Not on file documented as of this encounter Visit Diagnoses Not on filedocumented in this encounter
--- OUTSIDE RECORDS SUMMARY | 2025-02-07 19:46 | XMS_ITS | Encounter Summary ---
Author Organization [employer] ([place], [place], [place], [place]) Address [address] [place] [address] Care Team Providers Care Research Engineer Marine Equipment Name Role Phone Unavailable Primary Care Provider Unavailabl e Encounter Details Date Type Department Care Team (Late st Contact Info) Description 04/08/2021 Transcribed Document [facility] [place] [facility] [place] [address] ProviderJuan Carlos MD [facility] [place], [place] [id number] Social History Tobacco Use Types Packs/Day Years [...]
[2025-02-07 20:03] LABS: Bilirubin,Urine Negative (Negative); Color,Urine YELLOW (Yellow); Glucose,Urine (UA) Negative (Negative); Ketones,Urine Negative (Negative); Leukocyte Esterase,Urine Negative (Negative); Microscopic, Urine URINE MICROSCOPIC (MICROSCOPIC); PH,Urine 6.5 (5.0-8.5); Protein,Urine Negative (Negative); Specific Gravity, Urine <= 1.005 (1.005-1.030); Urobilinogen,Urine 0.2 EU/dl (0.2)
[2025-02-07 20:04] VITALS: BP 127/92; PULSE 86; RESP 17; TEMP 36.5; O2SAT 99; BMI 26.0
[2025-02-07 20:16] LABS: Bacteria,Urine 3+ /lpf; Squamous Epithelial Cell,Urine 20-50 #/hpf (0-5)
== END 2025-02-07 21:08 | disposition home or self-care (01) ==
LOC: OBOUT 19:43 → OB 19:44
PROVIDERS: Visit Provider Obstetrics & Gynecology
DX: O26.893 Other specified pregnancy related conditions, third trimester (principal); O99.891 Other specified diseases and conditions complicating pregnancy; N13.30 Unspecified hydronephrosis; R10.9 Unspecified abdominal pain; Z3A.35 35 weeks gestation of pregnancy
CPT/HCPCS: 59025; 81001; 87086; 99212; G0463

== ENCOUNTER 2025-02-11 12:53 | Outpatient (CLI) | payer OTHER, SELFPAY ==
--- OUTSIDE RECORDS SUMMARY | 2025-02-11 12:55 | XMS_ITS | Clinical Summary ---
Author Organization [employer] ([place], [place], [place], [place]) Address [address] [place] [address] Care Team Providers Care Lead Presser Name Role Phone Unavailable Primary Care Provider [...]
--- OUTSIDE RECORDS SUMMARY | 2025-02-11 12:55 | XMS_ITS | Encounter Summary ---
Author Organization [employer] ([place], [place], [place], [place]) Address [address] [place] [address] Care Team Providers Care Customs Patrol Officer Name Role Phone Unavailable Primary Care Provider Unavailabl e Encounter Details Date Type Department Care Team (Late st Contact Info) Description 04/11/2021 Transcribed Document [facility] Family Medicine [address] [place] [address] ProviderJuan Carlos MD [address] [place], [place] [address] Social History Tobacco Use Types Packs/Day Years [...] Historical ProviderMD - 04/11/2021 9:48 AM CDT [place] Suicide Severity Rating Scale (C-SSRS) Entered On: 04/11/2021 12:05 EDT Performed On: 04/11/2021 12:04 EDT by Lacey Chau RN [place] Suicide Severity Rating Scale (C-SSRS) CSSRS Past Month Wish to be : No CSSRS Past Month Suicidal Thoughts : No CSSRS Lifetime Suicide Behavior : No Suicide Severity Rating Score : 0 Suicide Severity Rating : No Additional Care Required at this time Lacey Chau RN - 04/11/2021 12:04 EDT Electronically signed by Chana [facility] [facility] Conversion Yarn Weight And Strength Tester Cerner at 11/21/2022 11:45 PM CDT documented in this encounter Plan of Treatment Not on file documented as of this encounter Visit Diagnoses Not on filedocumented in this encounter
--- OUTSIDE RECORDS SUMMARY | 2025-02-11 12:55 | XMS_ITS | Encounter Summary ---
Author Organization [employer] ([place], [place], [place], [place]) Address [address] [place] [address] Care Team Providers Care Industrial Waste Inspector Name Role Phone Unavailable Primary Care Provider Unavailabl e Encounter Details Date Type Department Care Team (Late st Contact Info) Description 04/11/2021 Transcribed Document [facility] [place] [facility] [place] [address] ProviderJuan Carlos MD [facility] [place] [address] Social History Tobacco Use Types [...] : 3 - Urgent Tracking Group : [facility] ED [facility] Harleen Brown RN - 04/11/2021 [...] caused by 2019 novel coronavirus (SNOMED CT :[id number] ) Name of Problem: Disease caused by 2019 novel coronavirus ; Recorder: SYSTEM, SYSTEM; Confirmation: Confirmed ; Classification: Medical ; Code: [id number] ; Last Updated: 04/07/2021 22:55 EDT ; Life Cycle Date: 04/07/2021 ; Life Cycle Status: Active ; Vocabulary: SNOMED CT ; Comments: 04/07/2021 22:55 - SYSTEM, SYSTEM Problem added by a rule: [id number]. Diagnoses(Active) Vaginal bleeding Date: 04/11/2021 ; Diagnosis Type: Reason For Visit ; Confirmation: Complaint of ; Clinical Dx: Vaginal bleeding ; Classification: Medical ; Clinical Service: Non-Specified ; Code: PNED ; Probability: 0 ; Diagnosis Code: [id number] ED Height and Weight Height Source : Measured Height Entry Format : [place] Height, Feet : 5 ft(Converted to: 152 cm, 60 Inch) Height, Inches : 7 Inch(Converted to: 0 ft 7 Inch, 17.78 cm) Clinical Height : 170.18 cm Weight Source, ED : Standing scale Weight Entry Format : [place] Weight, Pounds : 128 lb Clinical Dosing Weight : 58.18 kg Body Surface Area (BSA) : 1.67 m2 Body Mass Index : 20.1 kg/m2 [place] Body Weight (IBW) : 61.16 kg Harleen Brown RN - 04/11/2021 10:10 EDT Electronically signed by Brian Zayas Conversion Enterprise Integration Developer Cerner at 11/21/2022 11:41 PM CDT documented in this encounter Plan of Treatment Not on file documented as of this encounter Visit Diagnoses Not on filedocumented in this encounter
--- OUTSIDE RECORDS SUMMARY | 2025-02-11 12:55 | XMS_ITS | Encounter Summary ---
Author Organization [employer] ([place], [place], [place], [place]) Address [address] [place] [address] Care Team Providers Care Metal Worker Name Role Phone Unavailable Primary Care Provider Unavailabl e Encounter Details Date Type Department Care Team (Late st Contact Info) Description 04/11/2021 Transcribed Document [facility] [place] [facility] [place] [address] ProviderJuan Carlos MD [address] [place] [address] Social History Tobacco Use Types [...]
--- OUTSIDE RECORDS SUMMARY | 2025-02-11 12:55 | XMS_ITS | Encounter Summary ---
Author Organization [employer] ([place], [place], [place], [place]) Address [address] [place] [address] Care Team Providers Care Die Equipment Operator Name Role Phone Unavailable Primary Care Provider Unavailabl e Encounter Details Date Type Department Care Team (Late st Contact Info) Description 04/11/2021 Transcribed Document [facility] [place] [address] [place] [address] ProviderJuan Carlos MD [address] [place], [place] [id number] Social History Tobacco Use Types Packs/Day Years [...]
--- OUTSIDE RECORDS SUMMARY | 2025-02-11 12:55 | XMS_ITS | Encounter Summary ---
Author Organization [employer] ([place], [place], [place], [place]) Address [address] [place] [address] Care Team Providers Care Land Surveying Survey Worker Name Role Phone Unavailable Primary Care Provider Unavailabl e Encounter Details Date Type Department Care Team (Late st Contact Info) Description 04/07/2021 Transcribed Document [facility] [place] [address] [place] [address] ProviderJuan Carlos MD [address] [place], [place] [id number] Social History Tobacco Use Types Packs/Day Years [...]
--- OUTSIDE RECORDS SUMMARY | 2025-02-11 12:55 | XMS_ITS | Encounter Summary ---
Author Organization [employer] ([place], [place], [place], [place]) Address [address] [place] [address] Care Team Providers Care Malt Liquors Sales Supervisor Name Role Phone Unavailable Primary Care Provider Unavailabl e Encounter Details Date Type Department Care Team (Late st Contact Info) Description 04/10/[address] [facility] Radiology [address] [place] [address] Herbie Srivastava MD [address] [place] [address] Dept[place] [address] Social History Tobacco Use Types [...] 9:09 AM EDT Electronically signed by Chana [facility] Conversion Package Worker Cerner at 11/21/2022 11:49 PM CDT documented in this encounter Plan of Treatment Not on file documented as of this encounter Visit Diagnoses Not on filedocumented in this encounter
--- OUTSIDE RECORDS SUMMARY | 2025-02-11 12:55 | XMS_ITS | Encounter Summary ---
Author Organization [employer] ([place], [place], [place], [place]) Address [address] [place] [address] Care Team Providers Care Rx Specialist Name Role Phone Unavailable Primary Care Provider Unavailabl e Encounter Details Date Type Department Care Team (Late st Contact Info) Description 04/10/[address] [facility] [place] [facility] [place] [address] ProviderJuan Carlos MD [address] [place], [place] [id number] Social History Tobacco Use Types Packs/Day Years [...] Historical ProviderMD - 04/10/2021 5:27 AM CDT [place] Suicide Severity Rating Scale (C-SSRS) Entered On: 04/10/2021 6:47 EDT Performed On: 04/10/2021 6:46 EDT by Nasreen Aldridge RN-PATIENT CARE BEDSIDE NON-EXEMPT [place] Suicide Severity Rating Scale (C-SSRS) CSSRS Past [...]
--- OUTSIDE RECORDS SUMMARY | 2025-02-11 12:55 | XMS_ITS | Encounter Summary ---
Author Organization [employer] ([place], [place], [place], [place]) Address [address] [place] [address] Care Team Providers Care Boat Assembler Name Role Phone Unavailable Primary Care Provider Unavailabl e Encounter Details Date Type Department Care Team (Late st Contact Info) Description 04/10/2021 Transcribed Document [facility] [place] [facility] [place] [address] ProviderJuan Carlos MD [address] [place], [place] [address] Social History Tobacco Use Types Packs/Day Years [...]
--- OUTSIDE RECORDS SUMMARY | 2025-02-11 12:55 | XMS_ITS | Encounter Summary ---
Author Organization [employer] ([place], [place], [place], [place]) Address [address] [place] [address] Care Team Providers Care Spring Machine Operator Name Role Phone Unavailable Primary Care Provider Unavailabl e Encounter Details Date Type Department Care Team (Late st Contact Info) Description 04/07/2021 Transcribed Document [facility] [place] [address] [place] [address] ProviderJuan Carlos MD [address] [place], [place] [id number] Social History Tobacco Use Types Packs/Day Years [...] Historical ProviderMD - 04/07/2021 7:59 PM CDT [place] Suicide Severity Rating Scale (C-SSRS) Entered On: 04/08/2021 0:17 EDT Performed On: 04/08/2021 0:16 EDT by MARIANA ESTEVES RN [place] Suicide Severity Rating Scale (C-SSRS) CSSRS Past [...]
--- OUTSIDE RECORDS SUMMARY | 2025-02-11 12:55 | XMS_ITS | Encounter Summary ---
Author Organization [employer] ([place], [place], [place], [place]) Address [address] [place] [address] Care Team Providers Care Supervisor Central Supply Name Role Phone Unavailable Primary Care Provider Unavailabl e Encounter Details Date Type Department Care Team (Late st Contact Info) Description 04/11/2021 Transcribed Document [facility] [place] [facility] [place] [address] ProviderJuan Carlos MD [address] [place] [address] Social History Tobacco Use [...] Carlos ProviderMD - 04/11/2021 2:23 PM CDT [place] [id number] LIBERTAD WEBBNE :2000 Visit Time:04/11/2021 Your Visit [...] pelvic rest as discussed. Follow-up with your GARAGEMAN in 2 days for repeat assessment. Allergies [...] provider. Document Revised: 08/31/2018 Document Reviewed: 10/21/2017 [employer] Patient Education ?? 2020 [employer] Vaginal Bleeding During , First Trimester [...] this is safe. General instructions ??? Take wryc-pwe-wulfdna and prescription medicines only as told by [...] provider. Document Revised: 11/13/2019 Document Reviewed: 10/27/2017 [employer] Patient Education ?? 2020 [employer] Subchorionic Hematoma A subchorionic hematoma is [...] Reviewed: 09/20/2017 Elsevier Patient Education ?? 2020 [employer] Emergency Awareness and Preventative Care STROKE [...] Assistance with quitting is available by contacting 6-567-QJUDNOW. This is a free resource providing counseling, support, and referral. Or you may contact your personal physician. [place] Suicide Prevention Lifeline: The National Suicide Prevention [...] was given the opportunity to ask questions. Patient/Aircraft Communicator Name: Patient/Aircraft Communicator Signature: Relationship to Patient: Clinician/Hospital Aircraft Communicator Signature: Please Provide a Telephone Number Where You Can Be Reached: Is it Permissible To Leave a Message? Date: Electronically signed by Chana, [facility] Conversion Auto Glass Technician Cerner at 11/21/2022 11:34 PM CDT documented in this encounter Plan of Treatment Not on file documented as of this encounter Visit Diagnoses Not on filedocumented in this encounter
--- OUTSIDE RECORDS SUMMARY | 2025-02-11 12:55 | XMS_ITS | Encounter Summary ---
Author Organization [employer] ([place], [place], [place], [place]) Address [address] [place] [address] Care Team Providers Care Anesthesiology Medical Doctor Name Role Phone Unavailable Primary Care Provider Unavailabl e Encounter Details Date Type Department Care Team (Late st Contact Info) Description 04/07/2021 Transcribed Document [facility] [place] [facility] [place] [address] ProviderJuan Carlos MD [address] [place] [address] Social History Tobacco Use Types [...] PM CDT Electronically signed by Chana [facility] Conversion Profiler Hand Cerner at 11/21/2022 11:36 PM CDT documented in this encounter Plan of Treatment Not on file documented as of this encounter Visit Diagnoses Not on filedocumented in this encounter
--- OUTSIDE RECORDS SUMMARY | 2025-02-11 12:55 | XMS_ITS | Encounter Summary ---
Author Organization [employer] ([place], [place], [place], [place]) Address [address] [place] [address] Care Team Providers Care Gin Clerk Name Role Phone Unavailable Primary Care Provider Unavailabl e Encounter Details Date Type Department Care Team (Late st Contact Info) Description 04/11/2021 Transcribed Document [facility] [place] [facility] [place] [address] ProviderJuan Carlos MD [facility] [place], [place] [id number] Social History Tobacco Use Types Packs/Day Years [...] Communication Barrier : None Primary Language : Sudanese Any Spiritual/Cultural Needs or Requests : No [...]
--- OUTSIDE RECORDS SUMMARY | 2025-02-11 12:55 | XMS_ITS | Encounter Summary ---
Author Organization [employer] ([place], [place], [place], [place]) Address [address] [place] [address] Care Team Providers Care Automobile Rental Agent Name Role Phone Unavailable Primary Care Provider Unavailabl e Encounter Details Date Type Department Care Team (Late st Contact Info) Description 04/11/2021 Transcribed Document [facility] [place] [facility] [place] [address] ProviderJuan Carlos MD [address] [place] [address] Social History Tobacco Use Types [...] 12:12 PM CDT Electronically signed by Chana [facility] Conversion Asset Protection Officer Yu at 11/21/2022 11:35 PM CDT documented in this encounter Plan of Treatment Not on file documented as of this encounter Visit Diagnoses Not on filedocumented in this encounter
--- OUTSIDE RECORDS SUMMARY | 2025-02-11 12:55 | XMS_ITS | Encounter Summary ---
Author Organization [employer] ([place], [place], [place], [place]) Address [address] [place] [address] Care Team Providers Care Biometrics Instructor Name Role Phone Unavailable Primary Care Provider Unavailabl e Encounter Details Date Type Department Care Team (Late st Contact Info) Description 04/11/2021 Transcribed Document [facility] [place] [facility] [place] [address] ProviderJuan Carlos [place] [address] Social History Tobacco Use Types [...] Patient reports brownish-red vaginal spotting that is exchange engineer than her menstrual period. This began yesterday and has continued today. She denies any abdominal pain or pelvic cramping. Also denies fever, nausea/vomiting, vaginal discharge. Patient tested positive for COVID-19 4 days ago and yesterday received the monoclonal antibody infusion. She currently follows with an LEATHER SEASONER at [facility], however is in the process of transitioning [...] April 11, 2021 14:10 EDT Encounter info: [id number], BEREKET Diaz [facility], Emergency Room, 04/11/2021 - 04/11/2021 [...] discussed strict pelvic rest and follow-up with LEATHER SEASONER. Patient voices understanding and agreement with plan. [...] pelvic rest as discussed. Follow-up with your LEATHER SEASONER in 2 days for repeat assessment., Follow up with primary care provider Within 2 to 3 days Call for follow up appointment. Return to the ER for any new or worsening symptoms as discussed, especially fever, persistent pelvic pain, vaginal bleeding greater than 2 pads/hour. Recommend pelvic rest as discussed. Follow-up with your LEATHER SEASONER in 2 days for repeat assessment., Follow up with primary care provider Within 2 to 3 days Call for follow up appointment. Return to the ER for any new or worsening symptoms as discussed, especially fever, persistent pelvic pain, vaginal bleeding greater than 2 pads/hour. Recommend pelvic rest as discussed. Follow-up with your LEATHER SEASONER in 2 days for repeat assessment.. Counseled: Patient, Regarding diagnosis, Regarding diagnostic results, Regarding treatment plan, Patient indicated understanding of instructions. documented in this encounter Plan of Treatment Not on file documented as of this encounter Visit Diagnoses Not on filedocumented in this encounter
--- OUTSIDE RECORDS SUMMARY | 2025-02-11 12:55 | XMS_ITS | Encounter Summary ---
Author Organization [employer] ([place], [place], [place], [place]) Address [address] [place] [address] Care Team Providers Care Merchandise Adjustment Clerk Name Role Phone Unavailable Primary Care Provider Unavailabl e Encounter Details Date Type Department Care Team (Late st Contact Info) Description 04/07/2021 Transcribed Document [facility] [place] [facility] [place] [address] ProviderJuan Carlos MD [address] [place] [address] Social History Tobacco Use Types [...] transitioning her care from her OB at [facility] her sleep as to a highway technician at . Denies any abdominal pain or [...] COVID-19: What Your Test Results Mean - [facility]. Follow up with: Follow up with primary care provider Within 2 to 3 days Call for follow up appointment. Return to the ER for any new or worsening symptoms as discussed, especially difficulty breathing or low O2 sat below 90%. Drink plenty of fluids and rest. You may take Tylenol as needed. Follow-up with your KNOWLEDGE MANAGEMENT CONSULTANT.; , Follow up with primary care provider Within 2 to 3 days Call for follow up appointment. Return to the ER for any new or worsening symptoms as discussed, especially difficulty breathing or low O2 sat below 90%. Drink plenty of fluids and rest. You may take Tylenol as needed. Follow-up with your KNOWLEDGE MANAGEMENT CONSULTANT.. Counseled: Patient, Regarding diagnosis, Regarding diagnostic results, Regarding treatment plan, Patient indicated understanding of instructions. documented in this encounter Plan of Treatment Not on file documented as of this encounter Visit Diagnoses Not on filedocumented in this encounter
--- OUTSIDE RECORDS SUMMARY | 2025-02-11 12:55 | XMS_ITS | Encounter Summary ---
Author Organization [employer] ([place], [place], [place], [place]) Address [address] [place] [address] Care Team Providers Care Manuscript Editor Name Role Phone Unavailable Primary Care Provider Unavailabl e Encounter Details Date Type Department Care Team (Late st Contact Info) Description 04/10/2021 Transcribed Document [facility] [place] [facility] [place] [address] ProviderJuan Carlos MD [address] [place] [address] Social History Tobacco Use Types [...] Cavazos MD - 04/10/2021 8:46 AM CDT [place] [id number] LIBERTAD DE LEONNE :2000 Visit Time:04/10/2021 Your [...] or High Risk [phone] [address]: [address] [place] [id number]- [facility] (1) Follow Up with For a clinic referral service , just dial: [phone] (WELL) Our experts will provide you with [...] water are not available, use alcohol-based hand solar lab technician. ??? Avoid touching your mouth, face, eyes, [...] pump parts after expressing milk. Follow the audio visual specialist's instructions to clean and disinfect all pump [...] (CDC): www.cdc.gov/coronavirus/2019-ncov/ ??? World Health Organization (WHO): www.who.int/news-room/q-a-detail/p-h-kd-rpoqu-68-zpixxjrjg-nedrdefpzo-hjf-vioj stfeeding ??? [place] [employer] (ACOG): www.acog.org/patient-resources/faqs//xlhihcivxfb-wtuaocuir-dph-breast feeding Questions to ask your health care [...] provider. Document Revised: 07/25/2020 Document Reviewed: 07/25/2020 [employer] Patient Education ?? 2020 [employer]. 10 Things You Can Do to Manage [...] clean your hands with an alcohol-based hand solar lab technician that contains at least 60% alcohol. 8. [...] Reviewed: 07/10/2020 Elsevier Patient Education ?? 2020 [employer] Emergency Awareness and Preventative Care STROKE [...] Assistance with quitting is available by contacting 7-262-HTVUNOW. This is a free resource providing counseling, support, and referral. Or you may contact your personal physician. ev-social Suicide Prevention Lifeline: The National Suicide Prevention [...] was given the opportunity to ask questions. Patient/Medication Tech Name: Patient/Medication Tech Signature: Relationship to Patient: Clinician/Hospital Medication Tech Signature: Please Provide a Telephone Number Where You Can Be Reached: Is it Permissible To Leave a Message? Date: Electronically signed by Chana [facility] Conversion Personal Injury Specialist Yu at 11/21/2022 11:37 PM CDT documented in this encounter Plan of Treatment Not on file documented as of this encounter Visit Diagnoses Not on filedocumented in this encounter
--- OUTSIDE RECORDS SUMMARY | 2025-02-11 12:55 | XMS_ITS | Encounter Summary ---
Author Organization [employer] ([place], [place], [place], [place]) Address [address] [place] [address] Care Team Providers Care Editorial Manager Name Role Phone Unavailable Primary Care Provider Unavailabl e Encounter Details Date Type Department Care Team (Late st Contact Info) Description 04/10/2021 Transcribed Document [facility] [place] [facility] [place] [address] ProviderJuan Carlos MD [place] [address] Social History Tobacco Use Types [...]
--- OUTSIDE RECORDS SUMMARY | 2025-02-11 12:55 | XMS_ITS | Encounter Summary ---
Author Organization [employer] ([place], [place], [place], [place]) Address [address] [place] [address] Care Team Providers Care Mirror Painter Name Role Phone Unavailable Primary Care Provider Unavailabl e Encounter Details Date Type Department Care Team (Late st Contact Info) Description 04/07/2021 Transcribed Document [facility] [place] [facility] [place] [address] ProviderJuan Carlos MD [address] [place] [address] Social History Tobacco Use Types Packs/Day [...] - Non - Urgent Tracking Group : [facility] MARIANA ESTEVES RN - 04/07/2021 [...] PNED ; Probability: 0 ; Diagnosis Code: [id number] ED Height and Weight Height Source : Measured Height Entry Format : [place] Height, Feet : 5 ft(Converted to: 152 cm, 60 Inch) Height, Inches : 7 Inch(Converted to: 0 ft 7 Inch, 17.78 cm) Clinical Height : 170.18 cm Weight Source, ED : Standing scale Weight Entry Format : [place] Weight, Pounds : 128 lb Clinical Dosing Weight : 58.18 kg Body Surface Area (BSA) : 1.67 m2 Body Mass Index : 20.1 kg/m2 [place] Body Weight (IBW) : 61.16 kg MARIANA ESTEVES RN - 04/07/2021 21:15 EDT documented in this encounter Plan of Treatment Not on file documented as of this encounter Visit Diagnoses Not on filedocumented in this encounter
--- OUTSIDE RECORDS SUMMARY | 2025-02-11 12:55 | XMS_ITS | Referral Summary ---
Author Organization [employer] ([place], [place], [place], [place]) Address [address] [place] [address] Care Team Providers Care Senior Solutions Architect Name Role Phone Unavailable Primary Care Provider [...]
--- OUTSIDE RECORDS SUMMARY | 2025-02-11 12:55 | XMS_ITS | Encounter Summary ---
Author Organization [employer] ([place], [place], [place], [place]) Address [address] [place] [address] Care Team Providers Care Chief Service Dispatcher Name Role Phone Unavailable Primary Care Provider Unavailabl e Encounter Details Date Type Department Care Team (Late st Contact Info) Description 04/10/2021 Transcribed Document [facility] [place] [facility] [place] [address] ProviderJuan Carlos MD [facility] [address] Social History Tobacco Use Types [...] EDT DCP GENERIC CODE Tracking Group : [facility] Tracking Acuity : 3 - [...] caused by 2019 novel coronavirus (SNOMED CT :[id number] ) Name of Problem: Disease caused by 2019 novel coronavirus ; Recorder: SYSTEM, SYSTEM; Confirmation: Confirmed ; Classification: Medical ; Code: [id number] ; Last Updated: 04/07/2021 22:55 EDT ; Life Cycle Date: 04/07/2021 ; Life Cycle Status: Active ; Vocabulary: SNOMED CT ; Comments: 04/07/2021 22:55 - SYSTEM, SYSTEM Problem added by a rule: [id number]. Diagnoses(Active) Medication administration Date: 04/10/2021 ; Diagnosis Type: Reason For Visit ; Confirmation: Complaint of ; Clinical Dx: Medication administration ; Classification: Medical ; Clinical Service: Emergency medicine ; Code: PNED ; Probability: 0 ; Diagnosis Code: [id number] ED Height and Weight Height Source : Measured Height Entry Format : [place] Height, Feet : 5 ft(Converted to: 152 cm, 60 Inch) Height, Inches : 7 Inch(Converted to: 0 ft 7 Inch, 17.78 cm) Clinical Height : 170.18 cm Weight Source, ED : Standing scale Weight Entry Format : [place] Weight, Pounds : 128 lb Clinical Dosing Weight : 58.18 kg Body Surface Area (BSA) : 1.67 m2 Body Mass Index : 20.1 kg/m2 [place] Body Weight (IBW) : 61.16 kg KIYA [...]
--- OUTSIDE RECORDS SUMMARY | 2025-02-11 12:55 | XMS_ITS | Encounter Summary ---
Author Organization [employer] ([place], [place], [place], [place]) Address [address] [place] [address] Care Team Providers Care Tempering Oven Operator Name Role Phone Unavailable Primary Care Provider Unavailabl e Encounter Details Date Type Department Care Team (Late st Contact Info) Description 04/11/2021 Transcribed Document [facility] [place] [facility] [place] [address] ProviderJuan Carlos MD [facility] [place] [address] Social History Tobacco Use Types [...] Lacey Chau RN - 04/11/2021 14:35 EDT documented in this encounter Plan of Treatment Not on file documented as of this encounter Visit Diagnoses Not on filedocumented in this encounter
--- OUTSIDE RECORDS SUMMARY | 2025-02-11 12:55 | XMS_ITS | Encounter Summary ---
Author Organization [employer] ([place], [place], [place], [place]) Address [address] [place] [address] Care Team Providers Care Sewer System Supervisor Name Role Phone Unavailable Primary Care Provider Unavailabl e Encounter Details Date Type Department Care Team (Late st Contact Info) Description 04/11/2021 Transcribed Document [facility] [place] Family Medicine [address] [place] [address] ProviderJuan Carlos MD [address] [place], [place] [id number] Social History Tobacco Use Types Packs/Day Years [...]
--- OUTSIDE RECORDS SUMMARY | 2025-02-11 12:55 | XMS_ITS | Encounter Summary ---
Author Organization [employer] ([place], [place], [place], [place]) Address [address] [place] [address] Care Team Providers Care Counter Stacker Name Role Phone Unavailable Primary Care Provider Unavailabl e Encounter Details Date Type Department Care Team (Late st Contact Info) Description 04/07/2021 Transcribed Document [facility] [place] [facility] [place] [address] ProviderJuan Carlos MD [facility] [place] [id number] Social History Tobacco Use Types Packs/Day Years [...] Communication Barrier : None Primary Language : [place] Timorese General Information Comment : seen by provider [...]
--- OUTSIDE RECORDS SUMMARY | 2025-02-11 12:55 | XMS_ITS | Encounter Summary ---
Author Organization [employer] ([place], [place], [place], [place]) Address [address] [place] [address] Care Team Providers Care Technology Methodology Consultant Name Role Phone Unavailable Primary Care Provider Unavailabl e Encounter Details Date Type Department Care Team (Late st Contact Info) Description 04/10/2021 Transcribed Document [facility] Radiology [address] [place] [address] Herbie Méndez MD [address] [place] [address] Dept[place] [address] Social History Tobacco Use Types [...] 1-Time . Notes: spoke to multiple Ob information systems specialist, with recomendations, patient remains stable, US update [...] a clinic referral service , just dial: [phone] (WELL) Our experts will provide you with [...]
--- OUTSIDE RECORDS SUMMARY | 2025-02-11 12:56 | XMS_ITS | Encounter Summary ---
Author Organization [employer] ([place], [place], [place], [place]) Address [address] [place] [address] Care Team Providers Care Fiber Optics Engineer Name Role Phone Unavailable Primary Care Provider Unavailabl e Encounter Details Date Type Department Care Team (Late st Contact Info) Description 04/08/2021 Transcribed Document [facility] [place] Family Medicine [facility] [place] [address] ProviderJuan Carlos MD [address] [place] [address] Social History Tobacco Use Types [...] Carlos ProviderMD - 04/08/2021 12:05 AM CDT [place] [id number] LIBERTAD WEBBNE :2000 Visit Time:04/07/2021 Your Visit [...] take Tylenol as needed. Follow-up with your COMMUNICATIONS EXECUTIVE. Allergies No Known Medication Allergies Immunizations This [...] areas. Get rest and stay hydrated. Take ozqj-phl-slqocle medicines, such as acetaminophen, to help you [...] 07/10/2020 ElseWantable, Inc. Patient Education ?? 2020 Sentinel Technologies Inc. COVID-19: How to Protect Yourself and Others Know how it spreads ??? There is currently no vaccine to prevent coronavirus disease 2019 (COVID-19). ??? The best way to prevent illness is to avoid being exposed to this virus. ??? The virus is thought to spread mainly from kfqlzb-xv-mduxvw. ? Between people who are in close [...] are not readily available, use a hand wardrobe coordinator that contains at least 60% alcohol. Cover [...] are at higher risk of getting very sick.www.cdc.gov/coronavirus/2019-ncov/mjta-rsqtq-icmmtcensqs/kbnhzw-nn-omlohx -risk.html Cover your mouth and nose with [...] available, clean your hands with a hand wardrobe coordinator that contains at least 60% alcohol. Clean and disinfect ??? Clean AND disinfect frequently touched surfaces daily. This includes tables, doorknobs, light switches, countertops, handles, desks, phones, keyboards, toilets, faucets, and sinks. www.cdc.gov/coronavirus/2019-ncov/tspinzj-szxjfiy-eibg/rlfbnnucvavq-ougs-xabr. html ??? If surfaces are dirty, clean [...] Reviewed: 02/14/2020 Elsevier Patient Education ?? 2020 [employer]. COVID-19 Frequently Asked Questions COVID-19 (coronavirus disease) [...] the coronavirus come from? In July 2019, [place] told the World Health Organization (WHO) about several cases of lung disease (human respiratory illness). These cases were linked to an open seafood and livestock market in the [facility]. The link to the seafood and livestock [...] and virus naming ??? World Health Organization: www.who.int/emergencies/diseases/namkc-sqhxigemkfu-0423/technical-guidance Who is at risk for complications from [...] water are not available, use alcohol-based hand wardrobe coordinator. ??? Avoid touching your face, mouth, nose, [...] (CDC): www.cdc.gov/coronavirus/2019-ncov/travelers ??? World Health Organization (WHO): www.who.int/emergencies/diseases/awxzq-ejmvjijmmpd-8039/travel-advice What should I do if I am sick? General instructions to stop the spread of infection ??? Wash your hands often with soap and water for at least 20 seconds. If soap and water are not available, use alcohol-based hand wardrobe coordinator. ??? Cough or sneeze into a tissue, [...] in hot, soapy water or use a structural engineering project manager. Air-dry your dishes. ??? Wash laundry in [...] Organization (WHO) ??? Information and news updates: www.who.int/emergencies/diseases/ljdqm-abjktmsjvui-0605 ??? Coronavirus health topic: www.who.int/health-topics/coronavirus ??? Questions and answers on COVID-19: www.who.int/news-room/q-a-detail/t-z-njsureldlfuxa ??? Global tracker: [employer]ang[employer] [place] Academy of Pediatrics (AAP) ??? Information for families: www.healthychildren.org/Tunisian/health-issues/conditions/chest-lungs/Pages/201 3-Sqvns-Xxirtsgffpm.aspx The coronavirus situation is changing rapidly. Check [...] provider. Document Revised: 07/22/2020 Document Reviewed: 07/22/2020 Sentinel Technologies Patient Education ?? 2020 Yuqing [employer] Inc. Emergency Awareness and Preventative Care STROKE [...] Assistance with quitting is available by contacting 8-330-YKFFNOW. This is a free resource providing counseling, support, and referral. Or you may contact your personal physician. [employer] Suicide Prevention Lifeline: The National Suicide Prevention [...] was given the opportunity to ask questions. Patient/Hide Cleaner Name: Patient/Hide Cleaner Signature: Relationship to Patient: Clinician/Hospital Hide Cleaner Signature: Please Provide a Telephone Number Where You Can Be Reached: Is it Permissible To Leave a Message? Date: Electronically signed by [facility] Conversion Cmm Programmer Yu at 11/21/2022 11:32 PM CDT documented in this encounter Plan of Treatment Not on file documented as of this encounter Visit Diagnoses Not on filedocumented in this encounter
--- OUTSIDE RECORDS SUMMARY | 2025-02-11 12:56 | XMS_ITS | Encounter Summary ---
Author Organization [employer] ([place], [place], [place], [place]) Address [address] [place] [address] Care Team Providers Care Hardener Helper Name Role Phone Unavailable Primary Care Provider Unavailabl e Encounter Details Date Type Department Care Team (Late st Contact Info) Description 04/08/[address] [facility] [place] Family Medicine [facility] [address] ProviderJuan Carlos MD [address] [place] [address] Social History Tobacco Use Types [...]
--- OUTSIDE RECORDS SUMMARY | 2025-02-11 12:56 | XMS_ITS | Clinical Summary ---
Author Organization [facility] Address [address] [place] [address] Care Team Providers Care Restaurant Culinary Manager Name Role Phone Krysten Burt MD Primary Care Provider [phone] Allergies No known active allergies Medications pseudoephedrine [...] (10/02/2021): Added automatically from request for surgery [id number] Immunizations Immunization Administration Dates Next Due Tdap 08/20/2021 Family History Medical History Relation Name Comments Alcohol abuse Maternal Grandmother Brnady Coker Drug abuse Maternal Grandmother Brandy Coker [...] place to sleep or slept in a detention (including now)? No 03/27/2024 Viola Depression Scale Answer Date Recorded Viola Depression Scale Total 8 12/07/2021 The thought [...] 12/01/2023 11/30/2022, 11/30/2022, 07/15/2022, Additional history exists [id number] Vaccine ( - season) 2024 UKY- SDOH [...] Procedure Name Priority Date/Time Associated Diagnosis Comments PAP TEST - CYTOLOGY Routine 11/30/2022 3 [...] Recently Relevant to Health Maintenance Results * Chlamydia trachomatis DNA by PCR (11/30/2022 3:09 PM EDT) Chlamydia trachomatis DNA PCR Result Not Detected Not Detected 12/02/2022 9:37 AM EDT [facility] Swab Endocervical structure / Unknown Non-blood Collection / Unknown 11/30/2022 3:09 PM EDT 11/30/2022 4:07 PM EDT Narrative [facility] - 12/02/2022 9:37 AM EDT This test is performed by the Duogou m2000 instrument for Real Time PCR C. trachomatis and N. gonorrhea. This test is FDA approved for use with endocervical, vaginal, and urine specimens. This test is used for clinical purposes. It should not be regarded as invesigational or for research. The [facility] Clinical Microbiology Laboratory is certified under the Clinical Laboratory Improvement Amendments of 1988 (CLIA-88) as qualified to perform high complexity clinical laboratory testing. us Rhea Ramos MD LAB MICROBIOLOGY - GENERAL ORDERABLES Final Result [facility] [address] [place] [address] * Pap Test (11/30/2022 3:09 PM EDT) Case Report Cytology Case: [id number] Authorizing Provider: Rhea Ramos MD Collected: 11/30/2022 1509 Ordering Location: Medical Office Building Received: 11/30/2022 1612 Obstetrics and Gynecology First Screen: Shayy Gordon Specimen: ThinPrep Pap Test, Liquid-Based Cervical/Vaginal, CERVICAL/VAGINAL 12/06/2022 3:06 PM EDT [facility] Interpretation NEGATIVE FOR INTRAEPITHELIAL LESION OR MALIGNANCY 12/06/2022 3:06 PM EDT [facility] at 1506 EDT Specimen Adequacy Satisfactory for evaluation; endocervical/villanueva sformation zone component present. Slide imaged by the ThinPrep Imaging system and selected 22 corado reviewed then full manual screening. 12/06/2022 3:06 PM EDT [facility] Cervical cytology is a screening [...] results is suggested (please call Microbiology at [phone] for results). 12/06/2022 3:06 PM EDT [facility] Menstrual Status Cyclic 12/07/19 3:06 PM EDT [facility] Contraceptive History Not Applicable 12/06/2022 3:06 PM EDT [facility] Screening Type Routine Screen 2022 3:06 PM EDT [facility] High Risk? No 12/06/2022 3:06 PM EDT [facility] HPV Testing Requested? No HPV Testing Requested 12/06/2022 3:06 PM EDT [facility] Previous Cancer History No 12/06/2022 3:06 PM EDT [facility] Clinical Information R10.2 - Pelvic and perineal pain [ICD-10-CM] 12/06/2022 3:06 PM EDT [facility] Last Menstrual Period 10/25/2022 12/06/2022 3:06 PM EDT [facility] Swab Vaginal and cervical cytologic material / Unknown Non-blood Collection / Unknown 11/30/2022 3:09 PM EDT 11/30/2022 4:15 PM EDT us Rhea Ramos MD LAB CYTOLOGY ORDERABLES Fi nal Result [facility] [address] [place] [address] * HIV 1 & 2 Antibody/Antigen Screen (04/30/2021 8:23 PM EDT) HIV 1 & 2 Antibody/Anti gen Screen Nonreactive Nonreactive 04/30/2021 8:23 PM EDT [facility] Blood Venous blood specimen / Unknown 04/30/2021 3:09 PM EDT Rhea Ramos MD LAB BLOOD ORDERABLES Final Result Performing Organization Address City/[facility]/ZIP Co de Phone Number [facility] [address] [place] [address] * Hepatitis C Antibody (04/30/2021 8:21 PM EDT) Pathologist [facility] Hepatitis C Antibody Negative Negative 04/30/2021 8:21 PM EDT [facility] Blood Venous blood specimen / Unknown 04/30/2021 3:09 PM EDT Rhea Ramos MD LAB BLOOD ORDERABLES Final Result Performing Organization Address [facility] Co de Phone Number [facility] [address] [place] [address] from Last 3 Months or Most Recently Relevant to Health Maintenance Insurance MEDICAID Advance Directives * Full Code (Latest Code Status on File) Date Activated Date Inactivated Comments 10/23/2021 12:34 PM 10/26/2021 4:44 PM Question Answer Comments Patient has decision-making capacity? Yes Care Teams Restaurant Culinary Manager Relationship Specialty Start Date End Date Krysten Burt MD [address] [facility] [address] [place] [address] PCP - General Adolescent Medicine 12/29/22
--- OUTSIDE RECORDS SUMMARY | 2025-02-11 12:56 | XMS_ITS | Encounter Summary ---
Author Organization [employer] ([place], [place], [place], [place]) Address [address] [place] [address] Care Team Providers Care Insurance Counselor Name Role Phone Unavailable Primary Care Provider Unavailabl e Encounter Details Date Type Department Care Team (Late st Contact Info) Description 04/08/2021 Transcribed Document [facility] [place] [facility] [place] [address] ProviderJuan Carlos MD [facility] [place], [place] [id number] Social History Tobacco Use Types Packs/Day Years [...] MARIANA ESTEVES RN - 04/08/2021 0:17 EDT Electronically signed by [facility] Conversion Shore Hand Dredge Or Barge Cerner at 11/21/2022 11:44 PM CDT documented in this encounter Plan of Treatment Not on file documented as of this encounter Visit Diagnoses Not on filedocumented in this encounter
--- OUTSIDE RECORDS SUMMARY | 2025-02-11 12:56 | XMS_ITS | Encounter Summary ---
Author Organization [employer] ([place], [place], [place], [place]) Address [address] [place] [address] Care Team Providers Care Boulevard Glassware Replacer Name Role Phone Unavailable Primary Care Provider Unavailabl e Encounter Details Date Type Department Care Team (Late st Contact Info) Description 04/10/2021 Transcribed Document [facility] [place] [facility] [place] [address] ProviderJuan Carlos MD [facility] [place], [place] [id number] Social History Tobacco Use Types Packs/Day Years [...] Communication Barrier : None Primary Language : Mozambican Any Spiritual/Cultural Needs or Requests : No [...]
--- OUTSIDE RECORDS SUMMARY | 2025-02-11 12:56 | XMS_ITS | Encounter Summary ---
Author Organization [employer] ([place], [place], [place], [place]) Address [address] [place] [address] Care Team Providers Care Vending Machine Host/Hostess Name Role Phone Unavailable Primary Care Provider Unavailabl e Encounter Details Date Type Department Care Team (Late st Contact Info) Description 04/10/2021 Transcribed Document [facility] [place] Family Medicine [facility] [place] [address] ProviderJuan Carlos MD [address] [place] [address] Social History Tobacco Use Types [...] Cavazos MD - 04/10/2021 8:45 AM CDT [place] [id number] LIBERTAD DE LEONNE :2000 Visit Time:04/10/2021 Your [...] or High Risk [phone] Where: [address] [place] [id number]- [facility] (1) Follow Up with For a clinic referral service , just dial: [phone] (WELL) Our experts will provide you with [...] water are not available, use alcohol-based hand pattern stamper. ??? Avoid touching your mouth, face, eyes, [...] pump parts after expressing milk. Follow the coffee host's instructions to clean and disinfect all pump [...] (CDC): www.cdc.gov/coronavirus/2019-ncov/ ??? World Health Organization (WHO): www.who.int/news-room/q-a-detail/t-r-vy-kspve-88-lbyoaxpcp-slebbldwoy-dgy-eeys stfeeding ??? [place] College of Obstetricians and Gynecologists (ACOG): www.acog.org/patient-resources/faqs//xmlkulditsa-zutgaomuv-ysa-breast feeding Questions to ask your health care [...] provider. Document Revised: 07/25/2020 Document Reviewed: 07/25/2020 Distil Interactive Patient Education ?? 2020 [employer]. 10 Things You Can Do to Manage [...] clean your hands with an alcohol-based hand pattern stamper that contains at least 60% alcohol. 8. [...] Reviewed: 07/10/2020 Elsevier Patient Education ?? 2020 Distil Interactive Inc. Emergency Awareness and Preventative Care STROKE [...] Assistance with quitting is available by contacting 9-167-YVXDNOW. This is a free resource providing counseling, support, and referral. Or you may contact your personal physician. [place] Suicide Prevention Lifeline: The National Suicide Prevention [...] was given the opportunity to ask questions. Patient/Cartridge Maker Name: Patient/Cartridge Maker Signature: Relationship to Patient: Clinician/Hospital Cartridge Maker Signature: Please Provide a Telephone Number Where You Can Be Reached: Is it Permissible To Leave a Message? Date: documented in this encounter Plan of Treatment Not on file documented as of this encounter Visit Diagnoses Not on filedocumented in this encounter
--- NOTE | 2025-02-11 13:00 | US_ITS ---
PROCEDURE: US OB BIOPHYSICAL PROFILE CLINICAL INDICATION: Needs for growth restriction COMPARISON: US US OB TRANSVAGINAL from 10/03/2024 US US OB /MATERNAL DETAIL from 10/24/2024 US US OB BIOPHYSICAL PROFILE from 01/11/2025 US OB BIOPHYSICAL PROFILE from 01/30/2025 FINDINGS: Transabdominal sonographic images of the uterus were obtained. From her established due date she is 35weeks 6days. The following parameters are obtained: Viable Fetus in the cephalic presentation with an anterior placenta grade 2. Placental lakes are still seen. Measurements: heart Rate = 132bpm Amniotic fluid index: 15.72cm, MVP 5.92 cm Qualitative AFV:2 Breathing movements: 2 Gross Body Movements: 2 Tone: 2 Biophysical profile score: 8 No obvious anomalies evident.Kidneys, profile, bladder, stomach, four-chamber heart three-vessel cord appear normal. IMPRESSION: 1. Viable fetus in the cephalic presentation with an anterior placenta grade 2. There are still placental lakes seen. 2. The fluid is within normal limits with an amniotic fluid index 15.72 cm, MVP 5.92 cm. 3. Biophysical profile is 8/8 with good breathing movement and movement seen. 4. Limited anatomical scan appears normal. Dictated by: Ulices Gomez MD 02/11/2025 15:09 Ulices Gomez MD in [place] 02/11/2025 15:09
== END 2025-02-11 23:59 | disposition home or self-care (01) ==
LOC: RAD 12:53
PROVIDERS: PCP Obstetrics & Gynecology; Visit Provider Obstetrics & Gynecology
DX: O28.3 Abnormal ultrasonic finding on antenatal screening of mother (principal); O36.5930 Maternal care for other known or suspected poor fetal growth, third trimester, not applicable or unspecified; Z3A.35 35 weeks gestation of pregnancy
CPT/HCPCS: 76819

== ENCOUNTER 2025-02-15 14:26 | Outpatient (CLI) | payer OTHER, SELFPAY ==
--- NOTE | 2025-02-15 14:30 | US_ITS ---
PROCEDURE: US OB BIOPHYSICAL PROFILE CLINICAL INDICATION: Needs for Growth Restriction COMPARISON: US US ABDOMEN LIMITED from 08/31/2024 US US OB TRANSVAGINAL from 10/03/2024 US OB /MATERNAL DETAIL from 10/24/2024 US OB BIOPHYSICAL PROFILE from 01/11/2025 US OB BIOPHYSICAL PROFILE from 01/30/2025 US OB BIOPHYSICAL PROFILE from 02/11/2025 FINDINGS: Transabdominal sonographic images of the uterus were obtained. From her established due date she is 36weeks 3days. The following parameters are obtained: Viable Fetus in the cephalic presentation with an anterior placenta grade 2. There are multiple small placental lakes. The cervix measures 2.98 cm. Measurements: heart Rate = 158bpm Amniotic fluid index: 10.08cm, MVP 3.90 cm Qualitative AFV:2 Breathing movements: 2 Gross Body Movements: 2 Tone: 2 Biophysical profile score: 8 No obvious anomalies evident.Kidneys, stomach, bladder, four-chamber heart, three-vessel cord appear normal. IMPRESSION: 1. Viable fetus in the cephalic presentation with an anterior placenta grade 2. There are multiple placental lakes. 2. The fluid is within normal limits with an amniotic fluid index 10.08 cm, MVP 3.90 cm. 3. Biophysical profile is 8/8 with good breathing movement and movement seen. 4. Limited anatomical scan appears normal. Dictated by: Ulices Gomez MD 02/16/2025 08:47 Ulices Gomez MD in OV 02/16/2025 08:47
--- OUTSIDE RECORDS SUMMARY | 2025-02-15 14:32 | XMS_ITS | Encounter Summary ---
Author Organization [employer] ([place], [place], [place], [place]) Address [address] [place] [address] Care Team Providers Care Postal Carrier Name Role Phone Unavailable Primary Care Provider Unavailabl e Encounter Details Date Type Department Care Team (Late st Contact Info) Description 04/08/2021 Transcribed Document [facility] [place] [facility] [place] [address] ProviderJuan Carlos MD [address] [place] [address] Social History Tobacco Use Types [...] Carlos ProviderMD - 04/08/2021 12:05 AM CDT [place] [id number] LIBERTAD WEBBNE :2000 Visit Time:04/07/2021 Your Visit [...] take Tylenol as needed. Follow-up with your OIL WELL DRILLING MANAGER. Allergies No Known Medication Allergies Immunizations This [...] areas. Get rest and stay hydrated. Take xctz-kul-xgztxre medicines, such as acetaminophen, to help you [...] provider. Document Revised: 07/10/2020 Document Reviewed: 07/10/2020 ElseCapricor Patient Education ?? 2020 Eleme Medical Inc. COVID-19: How to Protect Yourself and Others Know how it spreads ??? There is currently no vaccine to prevent coronavirus disease 2019 (COVID-19). ??? The best way to prevent illness is to avoid being exposed to this virus. ??? The virus is thought to spread mainly from sohsvx-ui-fobvdm. ? Between people who are in close [...] are not readily available, use a hand floor tiling professional that contains at least 60% alcohol. Cover [...] are at higher risk of getting very sick.www.cdc.gov/coronavirus/2019-ncov/xvfo-swbza-xfyiykathty/hyczyp-py-hbvmev -risk.html Cover your mouth and nose with [...] available, clean your hands with a hand floor tiling professional that contains at least 60% alcohol. Clean and disinfect ??? Clean AND disinfect frequently touched surfaces daily. This includes tables, doorknobs, light switches, countertops, handles, desks, phones, keyboards, toilets, faucets, and sinks. www.cdc.gov/coronavirus/2019-ncov/wgselti-lvjcvld-gfzp/ajgwjvpepiqg-dvio-wxlm. html ??? If surfaces are dirty, clean [...] Reviewed: 02/14/2020 Elsevier Patient Education ?? 2020 Tellme. COVID-19 Frequently Asked Questions COVID-19 (coronavirus disease) [...] the coronavirus come from? In July 2019, [place] told the World Health Organization (WHO) about several cases of lung disease (human respiratory illness). These cases were linked to an open seafood and livestock market in the [facility]. The link to the seafood and livestock [...] and virus naming ??? World Health Organization: www.who.int/emergencies/diseases/pokkw-gbwnifgywju-8913/technical-guidance Who is at risk for complications from [...] water are not available, use alcohol-based hand floor tiling professional. ??? Avoid touching your face, mouth, nose, [...] (CDC): www.cdc.gov/coronavirus/2019-ncov/travelers ??? World Health Organization (WHO): www.who.int/emergencies/diseases/kwyuf-rogwdytmroc-3962/travel-advice What should I do if I am sick? General instructions to stop the spread of infection ??? Wash your hands often with soap and water for at least 20 seconds. If soap and water are not available, use alcohol-based hand floor tiling professional. ??? Cough or sneeze into a tissue, [...] in hot, soapy water or use a trim setter. Air-dry your dishes. ??? Wash laundry in [...] Organization (WHO) ??? Information and news updates: www.who.int/emergencies/diseases/cmwce-dtolqumqoqi-2363 ??? Coronavirus health topic: www.who.int/health-topics/coronavirus ??? Questions and answers on COVID-19: www.who.int/news-room/q-a-detail/b-q-gayzceovdrwnl ??? Global tracker: [employer] [place] Academy of Pediatrics (AAP) ??? Information for families: www.healthychildren.org/Hungarian/health-issues/conditions/chest-lungs/Pages/201 3-Tetni-Pvctvrkcrbz.aspx The coronavirus situation is changing rapidly. Check [...] provider. Document Revised: 07/22/2020 Document Reviewed: 07/22/2020 Eleme Medical Patient Education ?? 2020 SemaConnectvier Inc. Emergency Awareness and Preventative Care STROKE [...] Assistance with quitting is available by contacting 0-343-KQONNOW. This is a free resource providing counseling, support, and referral. Or you may contact your personal physician. [facility] Suicide Prevention Lifeline: The National Suicide Prevention [...] was given the opportunity to ask questions. Patient/Expeller Operator Name: Patient/Expeller Operator Signature: Relationship to Patient: Clinician/Hospital Expeller Operator Signature: Please Provide a Telephone Number Where You Can Be Reached: Is it Permissible To Leave a Message? Date: Electronically signed by [facility] Conversion Drive In Waiter/Waitress Yu at 11/21/2022 11:32 PM CDT documented in this encounter Plan of Treatment Not on file documented as of this encounter Visit Diagnoses Not on filedocumented in this encounter
--- OUTSIDE RECORDS SUMMARY | 2025-02-15 14:32 | XMS_ITS | Encounter Summary ---
Author Organization [employer] ([place], [place], [place], [place]) Address [address] [place] [address] Care Team Providers Care Jig And Fixture Builder Name Role Phone Unavailable Primary Care Provider Unavailabl e Encounter Details Date Type Department Care Team (Late st Contact Info) Description 04/11/2021 Transcribed Document [facility] [place] Family Medicine [facility] [place] [address] ProviderJuan Carlos MD [facility] [place] [address] Social History Tobacco Use Types [...] : 3 - Urgent Tracking Group : [facility] ED [facility] Harleen Brown RN - 04/11/2021 10:10 [...] caused by 2019 novel coronavirus (SNOMED CT :[id number] ) Name of Problem: Disease caused by 2019 novel coronavirus ; Recorder: SYSTEM, SYSTEM; Confirmation: Confirmed ; Classification: Medical ; Code: [id number] ; Last Updated: 04/07/2021 22:55 EDT ; Life Cycle Date: 04/07/2021 ; Life Cycle Status: Active ; Vocabulary: SNOMED CT ; Comments: 04/07/2021 22:55 - SYSTEM, SYSTEM Problem added by a rule: [id number]. Diagnoses(Active) Vaginal bleeding Date: 04/11/2021 ; Diagnosis Type: Reason For Visit ; Confirmation: Complaint of ; Clinical Dx: Vaginal bleeding ; Classification: Medical ; Clinical Service: Non-Specified ; Code: PNED ; Probability: 0 ; Diagnosis Code: [id number] ED Height and Weight Height Source : Measured Height Entry Format : [place] Height, Feet : 5 ft(Converted to: 152 cm, 60 Inch) Height, Inches : 7 Inch(Converted to: 0 ft 7 Inch, 17.78 cm) Clinical Height : 170.18 cm Weight Source, ED : Standing scale Weight Entry Format : [place] Weight, Pounds : 128 lb Clinical Dosing Weight : 58.18 kg Body Surface Area (BSA) : 1.67 m2 Body Mass Index : 20.1 kg/m2 [place] Body Weight (IBW) : 61.16 kg Harleen Brown RN - 04/11/2021 10:10 EDT documented in this encounter Plan of Treatment Not on file documented as of this encounter Visit Diagnoses Not on filedocumented in this encounter
--- OUTSIDE RECORDS SUMMARY | 2025-02-15 14:32 | XMS_ITS | Encounter Summary ---
Author Organization [employer] ([place], [place], [place], [place]) Address [address] [place] [address] Care Team Providers Care Deputy County Counsel Name Role Phone Unavailable Primary Care Provider Unavailabl e Encounter Details Date Type Department Care Team (Late st Contact Info) Description 04/10/2021 Transcribed Document [facility] [place] [facility] [place] [address] ProviderJuan Carlos MD [facility] [place] [address] Social History Tobacco Use Types [...] EDT DCP GENERIC CODE Tracking Group : [facility] Tracking Acuity : 3 - [...] caused by 2019 novel coronavirus (SNOMED CT :[id number] ) Name of Problem: Disease caused by 2019 novel coronavirus ; Recorder: SYSTEM, SYSTEM; Confirmation: Confirmed ; Classification: Medical ; Code: [id number] ; Last Updated: 04/07/2021 22:55 EDT ; Life Cycle Date: 04/07/2021 ; Life Cycle Status: Active ; Vocabulary: SNOMED CT ; Comments: 04/07/2021 22:55 - SYSTEM, SYSTEM Problem added by a rule: [id number]. Diagnoses(Active) Medication administration Date: 04/10/2021 ; Diagnosis Type: Reason For Visit ; Confirmation: Complaint of ; Clinical Dx: Medication administration ; Classification: Medical ; Clinical Service: Emergency medicine ; Code: PNED ; Probability: 0 ; Diagnosis Code: [id number] ED Height and Weight Height Source : Measured Height Entry Format : [place] Height, Feet : 5 ft(Converted to: 152 cm, 60 Inch) Height, Inches : 7 Inch(Converted to: 0 ft 7 Inch, 17.78 cm) Clinical Height : 170.18 cm Weight Source, ED : Standing scale Weight Entry Format : [place] Weight, Pounds : 128 lb Clinical Dosing Weight : 58.18 kg Body Surface Area (BSA) : 1.67 m2 Body Mass Index : 20.1 kg/m2 [place] Body Weight (IBW) : 61.16 kg KIYA [...]
--- OUTSIDE RECORDS SUMMARY | 2025-02-15 14:32 | XMS_ITS | Encounter Summary ---
Author Organization [employer] ([place], [place], [place], [place]) Address [address] [place] [address] Care Team Providers Care Core Blower Name Role Phone Unavailable Primary Care Provider Unavailabl e Encounter Details Date Type Department Care Team (Late st Contact Info) Description 04/11/2021 Transcribed Document [facility] [place] Family Medicine [facility] [address] ProviderJuan Carlos MD [address] [place] [address] Social History Tobacco Use Types [...] Carlos ProviderMD - 04/11/2021 2:23 PM CDT [place] [id number] LIBERTAD WEBBNE :2000 Visit Time:04/11/2021 Your Visit [...] pelvic rest as discussed. Follow-up with your PORCELAIN ENAMEL INSTALLER in 2 days for repeat assessment. Allergies [...] provider. Document Revised: 08/31/2018 Document Reviewed: 10/21/2017 [employer] Patient Education ?? 2020 [employer] Inc. Vaginal Bleeding During , First Trimester [...] this is safe. General instructions ??? Take vklz-pnt-[id number] and prescription medicines only as told by [...] provider. Document Revised: 11/13/2019 Document Reviewed: 10/27/2017 [employer] Patient Education ?? 2020 [employer] Inc. Subchorionic Hematoma A subchorionic hematoma is [...] Reviewed: 09/20/2017 Elsevier Patient Education ?? 2020 [employer] Inc. Emergency Awareness and Preventative Care STROKE [...] Assistance with quitting is available by contacting 9-832-EDLZNOW. This is a free resource providing counseling, support, and referral. Or you may contact your personal physician. [place] Suicide Prevention Lifeline: The National Suicide Prevention [...] was given the opportunity to ask questions. Patient/Ios Programmer Name: Patient/Ios Programmer Signature: Relationship to Patient: Clinician/Hospital Ios Programmer Signature: Please Provide a Telephone Number Where You Can Be Reached: Is it Permissible To Leave a Message? Date: Electronically signed by Chana, [facility] Conversion Spectacle Truer Cerner at 11/21/2022 11:34 PM CDT documented in this encounter Plan of Treatment Not on file documented as of this encounter Visit Diagnoses Not on filedocumented in this encounter
--- OUTSIDE RECORDS SUMMARY | 2025-02-15 14:32 | XMS_ITS | Encounter Summary ---
Author Organization [employer] ([place], [place], [place], [place]) Address [address] [place] [address] Care Team Providers Care Weigher And Charger Name Role Phone Unavailable Primary Care Provider Unavailabl e Encounter Details Date Type Department Care Team (Late st Contact Info) Description 04/11/[address] [facility] [place] Family Medicine [address] [place] [address] ProviderJuan Carlos MD [address] [place], [place] [id number] Social History Tobacco Use Types Packs/Day Years [...] type is A+ per her mother Lacey Chua RN - 04/11/2021 13:04 EDT documented in this encounter Plan of Treatment Not on file documented as of this encounter Visit Diagnoses Not on filedocumented in this encounter
--- OUTSIDE RECORDS SUMMARY | 2025-02-15 14:32 | XMS_ITS | Encounter Summary ---
Author Organization [employer] ([place], [place], [place], [place]) Address [address] [place] [address] Care Team Providers Care Dog Track Kennel Manager Name Role Phone Unavailable Primary Care Provider Unavailabl e Encounter Details Date Type Department Care Team (Late st Contact Info) Description 04/11/2021 Transcribed Document [facility] [place] [facility] [place] [address] ProviderJuan Carlos MD [facility] [place] [address] Social History Tobacco Use [...] Patient reports brownish-red vaginal spotting that is anime designer than her menstrual period. This began yesterday and has continued today. She denies any abdominal pain or pelvic cramping. Also denies fever, nausea/vomiting, vaginal discharge. Patient tested positive for COVID-19 4 days ago and yesterday received the monoclonal antibody infusion. She currently follows with an AIRCRAFT ELECTRICIAN at [facility], however is in the process of transitioning [...] April 11, 2021 14:10 EDT Encounter info: [id number], BEREKET Diaz [facility], Emergency Room, 04/11/2021 - 04/11/2021 . [...] discussed strict pelvic rest and follow-up with AIRCRAFT ELECTRICIAN. Patient voices understanding and agreement with plan. [...] pelvic rest as discussed. Follow-up with your AIRCRAFT ELECTRICIAN in 2 days for repeat assessment., Follow up with primary care provider Within 2 to 3 days Call for follow up appointment. Return to the ER for any new or worsening symptoms as discussed, especially fever, persistent pelvic pain, vaginal bleeding greater than 2 pads/hour. Recommend pelvic rest as discussed. Follow-up with your AIRCRAFT ELECTRICIAN in 2 days for repeat assessment., Follow up with primary care provider Within 2 to 3 days Call for follow up appointment. Return to the ER for any new or worsening symptoms as discussed, especially fever, persistent pelvic pain, vaginal bleeding greater than 2 pads/hour. Recommend pelvic rest as discussed. Follow-up with your AIRCRAFT ELECTRICIAN in 2 days for repeat assessment.. Counseled: Patient, Regarding diagnosis, Regarding diagnostic results, Regarding treatment plan, Patient indicated understanding of instructions. documented in this encounter Plan of Treatment Not on file documented as of this encounter Visit Diagnoses Not on filedocumented in this encounter
--- OUTSIDE RECORDS SUMMARY | 2025-02-15 14:32 | XMS_ITS | Clinical Summary ---
Author Organization [employer] ([place], [place], [place], [place]) Address [address] [place] [address] Care Team Providers Care Railway Signal Electrician Name Role Phone Unavailable Primary Care Provider [...]
--- OUTSIDE RECORDS SUMMARY | 2025-02-15 14:32 | XMS_ITS | Clinical Summary ---
Author Organization [employer] [facility] Address [address] [place] [phone] Phone Care Team Providers Care Autism Tutor Name Role Phone Unavailable Unavailable Conditions or Problems No information available. Medications No information available. Medications Administered No information available. Allergies, Adverse Reactions, Alerts No information available. Results No information available. Plan of Care No information available. Procedures No information available. Vital Signs No information available. Immunizations No information available. Advance Directives No information available.
--- OUTSIDE RECORDS SUMMARY | 2025-02-15 14:32 | XMS_ITS | Encounter Summary ---
Author Organization [employer] ([place], [place], [place], [place]) Address [address] [place] [address] Care Team Providers Care Hog Pusher Name Role Phone Unavailable Primary Care Provider Unavailabl e Encounter Details Date Type Department Care Team (Late st Contact Info) Description 04/07/2021 Transcribed Document [facility] [place] Family Medicine [address] [place] [address] ProviderJuan Carlos MD [address] [place], [place] [id number] Social History Tobacco Use Types Packs/Day Years [...] Historical ProviderMD - 04/07/2021 7:59 PM CDT [place] Suicide Severity Rating Scale (C-SSRS) Entered On: 04/08/2021 0:17 EDT Performed On: 04/08/2021 0:16 EDT by MARIANA ESTEVES RN [place] Suicide Severity Rating Scale (C-SSRS) CSSRS Past [...]
--- OUTSIDE RECORDS SUMMARY | 2025-02-15 14:32 | XMS_ITS | Encounter Summary ---
Author Organization [employer] ([place], [place], [place], [place]) Address [address] [place] [address] Care Team Providers Care Grounding Engineer Name Role Phone Unavailable Primary Care Provider Unavailabl e Encounter Details Date Type Department Care Team (Late st Contact Info) Description 04/11/2021 Transcribed Document [facility] Family Medicine [facility] [place] [address] ProviderJuan Carlos MD [facility] [place] [address] Social History Tobacco Use Types [...] 04/11/2021 14:35 EDT Electronically signed by Chana [facility] Conversion Arranging Funeral Director Cerner at 11/21/2022 11:36 PM CDT documented in this encounter Plan of Treatment Not on file documented as of this encounter Visit Diagnoses Not on filedocumented in this encounter
--- OUTSIDE RECORDS SUMMARY | 2025-02-15 14:32 | XMS_ITS | Encounter Summary ---
Author Organization [employer] ([place], [place], [place], [place]) Address [address] [place] [address] Care Team Providers Care Aircraft Instrument Repairer Name Role Phone Unavailable Primary Care Provider Unavailabl e Encounter Details Date Type Department Care Team (Late st Contact Info) Description 04/11/2021 Transcribed Document [facility] Family Medicine [facility] [place] [address] ProviderJuan Carlos MD [address] [place] [address] Social History Tobacco Use Types [...] 12:12 PM CDT Electronically signed by Chana [facility] Conversion Wheelchair Van Operator First Responder Martinener at 11/21/2022 11:35 PM CDT documented in this encounter Plan of Treatment Not on file documented as of this encounter Visit Diagnoses Not on filedocumented in this encounter
--- OUTSIDE RECORDS SUMMARY | 2025-02-15 14:32 | XMS_ITS | Encounter Summary ---
Author Organization [employer] ([place], [place], [place], [place]) Address [address] [place] [address] Care Team Providers Care Pt Skilled Name Role Phone Unavailable Primary Care Provider Unavailabl e Encounter Details Date Type Department Care Team (Late st Contact Info) Description 04/10/2021 Transcribed Document [facility] [place] [address] [place] [address] ProviderJuan Carlos MD [address] [place], [place] [id number] Social History Tobacco Use Types Packs/Day Years [...]
--- OUTSIDE RECORDS SUMMARY | 2025-02-15 14:32 | XMS_ITS | Encounter Summary ---
Author Organization [employer] ([place], [place], [place], [place]) Address [address] [place] [address] Care Team Providers Care Financial Recruiter Name Role Phone Unavailable Primary Care Provider Unavailabl e Encounter Details Date Type Department Care Team (Late st Contact Info) Description 04/10/2021 Transcribed Document [facility] Family [facility] [place] [address] ProviderJuan Carlos MD [facility] [place] [id number] Social History Tobacco Use Types Packs/Day Years [...] Communication Barrier : None Primary Language : Uzbek Any Spiritual/Cultural Needs or Requests : No [...]
--- OUTSIDE RECORDS SUMMARY | 2025-02-15 14:32 | XMS_ITS | Encounter Summary ---
Author Organization [employer] ([place], [place], [place], [place]) Address [address] [place] [address] Care Team Providers Care Kennel Operator Name Role Phone Unavailable Primary Care Provider Unavailabl e Encounter Details Date Type Department Care Team (Late st Contact Info) Description 04/07/2021 Transcribed Document [facility] [place] [facility] [place] [address] ProviderJuan Carlos MD [facility] [place], [place] [id number] Social History Tobacco Use Types Packs/Day Years [...] Communication Barrier : None Primary Language : Icelandic General Information Comment : seen by provider [...]
--- OUTSIDE RECORDS SUMMARY | 2025-02-15 14:32 | XMS_ITS | Encounter Summary ---
Author Organization [employer] ([place], [place], [place], [place]) Address [address] [place] [address] Care Team Providers Care Ui Developer Name Role Phone Unavailable Primary Care Provider Unavailabl e Encounter Details Date Type Department Care Team (Late st Contact Info) Description 04/07/2021 Transcribed Document [facility] [place] Family Medicine [facility] [place] [address] ProviderJuan Carlos MD [address] [place] [address] Social History Tobacco Use Types Packs/Day [...] - Non - Urgent Tracking Group : [facility] ED [place] MARIANA ESTEVES RN - [...] PNED ; Probability: 0 ; Diagnosis Code: [id number] ED Height and Weight Height Source : Measured Height Entry Format : [place] Height, Feet : 5 ft(Converted to: 152 cm, 60 Inch) Height, Inches : 7 Inch(Converted to: 0 ft 7 Inch, 17.78 cm) Clinical Height : 170.18 cm Weight Source, ED : Standing scale Weight Entry Format : [place] Weight, Pounds : 128 lb Clinical Dosing Weight : 58.18 kg Body Surface Area (BSA) : 1.67 m2 Body Mass Index : 20.1 kg/m2 [place] Body Weight (IBW) : 61.16 kg MARIANA ESTEVES RN - 04/07/2021 21:15 EDT documented in this encounter Plan of Treatment Not on file documented as of this encounter Visit Diagnoses Not on filedocumented in this encounter
--- OUTSIDE RECORDS SUMMARY | 2025-02-15 14:32 | XMS_ITS | Encounter Summary ---
Author Organization [employer] ([place], [place], [place], [place]) Address [address] [place] [address] Care Team Providers Care Brand Analyst Name Role Phone Unavailable Primary Care Provider Unavailabl e Encounter Details Date Type Department Care Team (Late st Contact Info) Description 04/07/2021 Transcribed Document [facility] [place] [address] [place] [address] ProviderJuan Carlos MD [address] [place], [place] [phone] Social History Tobacco Use Types Packs/Day Years [...]
--- OUTSIDE RECORDS SUMMARY | 2025-02-15 14:32 | XMS_ITS | Encounter Summary ---
Author Organization [employer] ([place], [place], [place], [place]) Address [address] [place] [address] Care Team Providers Care Butadiene Compressor Operator Name Role Phone Unavailable Primary Care Provider Unavailabl e Encounter Details Date Type Department Care Team (Late st Contact Info) Description 04/10/2021 Transcribed Document [facility] [facility] [place] Medicine [facility] [place] [address] ProviderJuan Carlos MD [address] [place] [address] Social History Tobacco Use Types [...] Cavazos MD - 04/10/2021 8:45 AM CDT [place] [id number] LIBERTAD DE LEONNE :2000 Visit Time:04/10/2021 Your [...] or High Risk [phone] [address]: [address] [place] [id number]- [facility] (1) Follow Up with For a clinic referral service , just dial: [phone] (WELL) Our experts will provide you with [...] water are not available, use alcohol-based hand sod farmer. ??? Avoid touching your mouth, face, eyes, [...] should make a plan for feeding your with your family and your health care [...] pump parts after expressing milk. Follow the machine set up's instructions to clean and disinfect all pump [...] (CDC): www.cdc.gov/coronavirus/2019-ncov/ ??? World Health Organization (WHO): www.who.int/news-room/q-a-detail/o-o-im-igonx-05-fsvowagpp-lrljimfwew-lvk-scca stfeeding ??? [place] [employer] Obstetricians and Gynecologists (ACOG): www.acog.org/patient-resources/faqs//lfcxvadyxsg-ncgvqlmja-mvj-breast feeding Questions to ask your health care [...] provider. Document Revised: 07/25/2020 Document Reviewed: 07/25/2020 [employer] Patient Education ?? 2020 [employer]ayers. 10 Things You Can Do to Manage [...] clean your hands with an alcohol-based hand sod farmer that contains at least 60% alcohol. 8. [...] Reviewed: 07/10/2020 Elsevier Patient Education ?? 2020 [employer]a Therapeutics Inc. Emergency Awareness and Preventative Care STROKE [...] Assistance with quitting is available by contacting 9-389-GYNRNOW. This is a free resource providing counseling, support, and referral. Or you may contact your personal physician. [place] Suicide Prevention Lifeline: The National Suicide Prevention [...] was given the opportunity to ask questions. Patient/Electro Mechanical Assembler Name: Patient/Electro Mechanical Assembler Signature: Relationship to Patient: Clinician/Hospital Electro Mechanical Assembler Signature: Please Provide a Telephone Number Where You Can Be Reached: Is it Permissible To Leave a Message? Date: documented in this encounter Plan of Treatment Not on file documented as of this encounter Visit Diagnoses Not on filedocumented in this encounter
--- OUTSIDE RECORDS SUMMARY | 2025-02-15 14:32 | XMS_ITS | Encounter Summary ---
Author Organization [employer] ([place], [place], [place], [place]) Address [address] [place] [address] Care Team Providers Care Customer Marketing Manager Name Role Phone Unavailable Primary Care Provider Unavailabl e Encounter Details Date Type Department Care Team (Late st Contact Info) Description 04/11/2021 Transcribed Document [facility] [place] [facility] [place] [address] ProviderJuan Carlos MD [facility] [place] [id number] Social History Tobacco Use Types Packs/Day Years [...] Communication Barrier : None Primary Language : Bengali Any Spiritual/Cultural Needs or Requests : No [...]
--- OUTSIDE RECORDS SUMMARY | 2025-02-15 14:32 | XMS_ITS | Encounter Summary ---
Author Organization [employer] ([place], [place], [place], [place]) Address [address] [place] [address] Care Team Providers Care Tile Erector Name Role Phone Unavailable Primary Care Provider Unavailabl e Encounter Details Date Type Department Care Team (Late st Contact Info) Description 04/10/2021 Transcribed Document [facility] [place] [facility] [place] [address] ProviderJuan Carlos MD [address] [place] [address] Social History Tobacco Use Types [...] Cavazos MD - 04/10/2021 8:46 AM CDT [place] [id number] LIBERTAD DE LEONNE :2000 Visit Time:04/10/2021 Your [...] or High Risk [phone] [address]: [address] [place] [id number]- [facility] (1) Follow Up with For a clinic referral service , just dial: [phone] (WELL) Our experts will provide you with [...] water are not available, use alcohol-based hand director alumni relations. ??? Avoid touching your mouth, face, eyes, [...] pump parts after expressing milk. Follow the central office trouble shooter's instructions to clean and disinfect all pump [...] (CDC): www.cdc.gov/coronavirus/2019-ncov/ ??? World Health Organization (WHO): www.who.int/news-room/q-a-detail/o-z-qp-bkspz-01-sabtthgbx-unzfnfskfq-iih-ybui stfeeding ??? [place] [employer] of Obstetricians and Gynecologists (ACOG): www.acog.org/patient-resources/faqs//njjpbeddckd-fuihwkzqh-umd-breast feeding Questions to ask your health care [...] provider. Document Revised: 07/25/2020 Document Reviewed: 07/25/2020 [employer] Patient Education ?? 2020 [employer]. 10 Things You Can Do to Manage [...] clean your hands with an alcohol-based hand director alumni relations that contains at least 60% alcohol. 8. [...] Reviewed: 07/10/2020 Elsevier Patient Education ?? 2020 [employer] Inc. Emergency Awareness and Preventative Care STROKE [...] Assistance with quitting is available by contacting 4-353-LBCBNOW. This is a free resource providing counseling, support, and referral. Or you may contact your personal physician. [employer] Suicide Prevention Lifeline: The National Suicide Prevention [...] was given the opportunity to ask questions. Patient/Electronic Data Interchange Specialist Name: Patient/Electronic Data Interchange Specialist Signature: Relationship to Patient: Clinician/Hospital Electronic Data Interchange Specialist Signature: Please Provide a Telephone Number Where You Can Be Reached: Is it Permissible To Leave a Message? Date: Electronically signed by Chana [facility] Conversion Molding Line Operator Yu at 11/21/2022 11:37 PM CDT documented in this encounter Plan of Treatment Not on file documented as of this encounter Visit Diagnoses Not on filedocumented in this encounter
--- OUTSIDE RECORDS SUMMARY | 2025-02-15 14:32 | XMS_ITS | Encounter Summary ---
Author Organization [employer] ([place], [place], [place], [place]) Address [address] [place] [address] Care Team Providers Care Routing Clerk Name Role Phone Unavailable Primary Care Provider Unavailabl e Encounter Details Date Type Department Care Team (Late st Contact Info) Description 04/10/2021 Transcribed Document [facility] [place] [facility] [place] [address] ProviderJuan Carlos MD [facility] [place] [address] Social History Tobacco Use Types [...]
--- OUTSIDE RECORDS SUMMARY | 2025-02-15 14:32 | XMS_ITS | Encounter Summary ---
Author Organization [employer] ([place], [place], [place], [place]) Address [address] [place] [address] Care Team Providers Care Production Material Coordinator Name Role Phone Unavailable Primary Care Provider Unavailabl e Encounter Details Date Type Department Care Team (Late st Contact Info) Description 04/11/2021 Transcribed Document [facility] [place] Medicine [facility] [place] [address] ProviderJuan Carlos MD [address] [place] [address] Social History Tobacco Use Types [...]
--- OUTSIDE RECORDS SUMMARY | 2025-02-15 14:32 | XMS_ITS | Encounter Summary ---
Author Organization [employer] ([place], [place], [place], [place]) Address [address] [place] [address] Care Team Providers Care Meter Calibrator Name Role Phone Unavailable Primary Care Provider Unavailabl e Encounter Details Date Type Department Care Team (Late st Contact Info) Description 04/11/2021 Transcribed Document [facility] [place] [address] [place] [address] ProviderJuan Carlos MD [address] [place], [place] [id number] Social History Tobacco Use Types Packs/Day Years [...] EDT Performed On: 04/11/2021 12:04 EDT by aLcey Chau RN Broset Violence Assessment Broset Violence Checklist of Symptoms : None Broset Violence Symptoms Subtotal : 0 Broset Violence Symptoms Indicator : Low risk (0) Lacey Chau RN - 04/11/2021 12:04 EDT documented in this encounter Plan of Treatment Not on file documented as of this encounter Visit Diagnoses Not on filedocumented in this encounter
--- OUTSIDE RECORDS SUMMARY | 2025-02-15 14:32 | XMS_ITS | Encounter Summary ---
Author Organization [employer] ([place], [place], [place], [place]) Address [address] [place] [address] Care Team Providers Care Destination Imagination Coordinator Name Role Phone Unavailable Primary Care Provider Unavailabl e Encounter Details Date Type Department Care Team (Late st Contact Info) Description 04/10/2021 Transcribed Document [facility] [place] Family Medicine [facility] [place] [address] ProviderJuan Carlos MD [address], [place] [id number] Social History Tobacco Use Types Packs/Day Years [...] Historical ProviderMD - 04/10/2021 5:27 AM CDT [place] Suicide Severity Rating Scale (C-SSRS) Entered On: 04/10/2021 6:47 EDT Performed On: 04/10/2021 6:46 EDT by Nasreen Aldridge RN-PATIENT CARE BEDSIDE NON-EXEMPT [place] Suicide Severity Rating Scale (C-SSRS) CSSRS Past [...]
--- OUTSIDE RECORDS SUMMARY | 2025-02-15 14:32 | XMS_ITS | Encounter Summary ---
Author Organization [employer] ([place], [place], [place], [place]) Address [address] [place] [address] Care Team Providers Care Scarfing Machine Operator Name Role Phone Unavailable Primary Care Provider Unavailabl e Encounter Details Date Type Department Care Team (Late st Contact Info) Description 04/11/2021 Transcribed Document [facility] [place] [address] [place] [address] ProviderJuan Carlos MD [address] [place], [place] [id number] Social History Tobacco Use Types Packs/Day Years [...] Historical ProviderMD - 04/11/2021 9:48 AM CDT [place] Suicide Severity Rating Scale (C-SSRS) Entered On: 04/11/2021 12:05 EDT Performed On: 04/11/2021 12:04 EDT by Lacey Chau RN [place] Suicide Severity Rating Scale (C-SSRS) CSSRS Past Month Wish to be : No CSSRS Past Month Suicidal Thoughts : No CSSRS Lifetime Suicide Behavior : No Suicide Severity Rating Score : 0 Suicide Severity Rating : No Additional Care Required at this time Lacey Chau RN - 04/11/2021 12:04 EDT Electronically signed by Chana [facility] Conversion Bulk Sealer Operator Cerner at 11/21/2022 11:45 PM CDT documented in this encounter Plan of Treatment Not on file documented as of this encounter Visit Diagnoses Not on filedocumented in this encounter
--- OUTSIDE RECORDS SUMMARY | 2025-02-15 14:32 | XMS_ITS | Encounter Summary ---
Author Organization [employer] ([place], [place], [place], [place]) Address [address] [place] [address] Care Team Providers Care Post Adoption Coordinator Name Role Phone Unavailable Primary Care Provider Unavailabl e Encounter Details Date Type Department Care Team (Late st Contact Info) Description 04/10/2021 Transcribed Document [facility] Radiology [address] [place] [address] Herbie Srivastava MD [address] [place] [address] Dept. [place] [address] Social History Tobacco Use Types [...] 9:09 AM EDT Electronically signed by Chana [facility] Conversion Director Of Player Personnel Cerner at 11/21/2022 11:49 PM CDT documented in this encounter Plan of Treatment Not on file documented as of this encounter Visit Diagnoses Not on filedocumented in this encounter
--- OUTSIDE RECORDS SUMMARY | 2025-02-15 14:32 | XMS_ITS | Encounter Summary ---
Author Organization [employer] ([place], [place], [place], [place]) Address [address] [place] [address] Care Team Providers Care Branch Service Leader Name Role Phone Unavailable Primary Care Provider Unavailabl e Encounter Details Date Type Department Care Team (Late st Contact Info) Description 04/07/2021 Transcribed Document [facility] [place] Family Medicine [facility] [place] [address] ProviderJuan Carlos MD [address] [place] [address] Social History Tobacco Use Types [...]
--- OUTSIDE RECORDS SUMMARY | 2025-02-15 14:32 | XMS_ITS | Encounter Summary ---
Author Organization [employer] ([place], [place], [place], [place]) Address [address] [place] [address] Care Team Providers Care Hospice Admitting Clerk Name Role Phone Unavailable Primary Care Provider Unavailabl e Encounter Details Date Type Department Care Team (Late st Contact Info) Description 04/07/2021 Transcribed Document [facility] [place] Family Medicine [facility] [place] [address] ProviderJuan Carlos MD [address] [place] [address] Social History Tobacco Use Types [...] transitioning her care from her OB at [facility] her sleep as to a sed high school teacher at . Denies any abdominal pain or [...] COVID-19: What Your Test Results Mean - [facility]. Follow up with: Follow up with primary care provider Within 2 to 3 days Call for follow up appointment. Return to the ER for any new or worsening symptoms as discussed, especially difficulty breathing or low O2 sat below 90%. Drink plenty of fluids and rest. You may take Tylenol as needed. Follow-up with your ORNAMENTAL IRON ERECTOR.; , Follow up with primary care provider Within 2 to 3 days Call for follow up appointment. Return to the ER for any new or worsening symptoms as discussed, especially difficulty breathing or low O2 sat below 90%. Drink plenty of fluids and rest. You may take Tylenol as needed. Follow-up with your ORNAMENTAL IRON ERECTOR.. Counseled: Patient, Regarding diagnosis, Regarding diagnostic results, Regarding treatment plan, Patient indicated understanding of instructions. documented in this encounter Plan of Treatment Not on file documented as of this encounter Visit Diagnoses Not on filedocumented in this encounter
--- OUTSIDE RECORDS SUMMARY | 2025-02-15 14:32 | XMS_ITS | Referral Summary ---
Author Organization [employer] ([place], [place], [place], [place]) Address [address] [place] [address] Care Team Providers Care Holistic Nutritionist Name Role Phone Unavailable Primary Care Provider [...]
--- OUTSIDE RECORDS SUMMARY | 2025-02-15 14:32 | XMS_ITS | Encounter Summary ---
Author Organization [employer] ([place], [place], [place], [place]) Address [address] [place] [address] Care Team Providers Care Certified Nurses' Aide Name Role Phone Unavailable Primary Care Provider Unavailabl e Encounter Details Date Type Department Care Team (Late st Contact Info) Description 04/10/2021 Transcribed Document [facility] Radiology [address] [place] [address] Herbie Méndez MD [address] [place] [address] Dept[place] [address] Social History Tobacco Use Types [...] 1-Time . Notes: spoke to multiple Ob statement distribution clerk, with recomendations, patient remains stable, US update [...] a clinic referral service , just dial: [phone] (WELL) Our experts will provide you with [...]
--- OUTSIDE RECORDS SUMMARY | 2025-02-15 14:32 | XMS_ITS | Encounter Summary ---
Author Organization [employer] ([place], [place], [place], [place]) Address [address] [place] [address] Care Team Providers Care Bisque Kiln Placer Name Role Phone Unavailable Primary Care Provider Unavailabl e Encounter Details Date Type Department Care Team (Late st Contact Info) Description 04/08/2021 Transcribed Document [facility] [place] [facility] [place] [address] ProviderJuan Carlos MD [facility] [place], [place] [id number] Social History Tobacco Use Types Packs/Day Years [...] 04/08/2021 0:17 EDT Electronically signed by Chana [facility] Conversion Copper Tapper Cerner at 11/21/2022 11:44 PM CDT documented in this encounter Plan of Treatment Not on file documented as of this encounter Visit Diagnoses Not on filedocumented in this encounter
--- OUTSIDE RECORDS SUMMARY | 2025-02-15 14:32 | XMS_ITS | Clinical Summary ---
Author Organization [facility] Address [address] [place] [address] Care Team Providers Care Long Wall Mining Machine Helper Name Role Phone Krysten Burt MD Primary Care Provider [phone] Allergies No known active allergies Medications pseudoephedrine [...] (10/02/2021): Added automatically from request for surgery [id number] Immunizations Immunization Administration Dates Next Due Tdap [...] place to sleep or slept in a correction (including now)? No 03/27/2024 [place] Depression Scale Answer Date Recorded [place] Depression Scale Total 8 12/07/2021 The thought [...] 12/01/2023 11/30/2022, 11/30/2022, 07/15/2022, Additional history exists [id number]-12 Vaccine ( - season) 2024 UKY- SDOH [...] Detected Not Detected 12/02/2022 9:37 AM EDT [facility] Swab Endocervical structure / Unknown Non-blood Collection / Unknown 11/30/2022 3:09 PM EDT 11/30/2022 4:07 PM EDT Narrative [facility] - 12/02/2022 9:37 AM EDT This test is performed by the CyberX m2000 instrument for Real Time PCR C. trachomatis and N. gonorrhea. This test is FDA approved for use with endocervical, vaginal, and urine specimens. This test is used for clinical purposes. It should not be regarded as invesigational or for research. [facility] Clinical Microbiology Laboratory is certified under the Clinical Laboratory Improvement Amendments of 1988 (CLIA-88) as qualified to perform high complexity clinical laboratory testing. us Rhea Ramos MD LAB MICROBIOLOGY - GENERAL ORDERABLES Final Result [facility] [address] [place] [address] * Pap Test (11/30/2022 3:09 PM EDT) Case Report Cytology Case: [id number] Authorizing Provider: Rhea Ramos MD Collected: 11/30/2022 1509 Ordering Location: Medical Office Building Received: 11/30/2022 1611 Obstetrics and Gynecology First Screen: Shayy Gordon Specimen: ThinPrep Pap Test, Liquid-Based Cervical/Vaginal, CERVICAL/VAGINAL 12/06/2022 3:06 PM EDT [facility] Interpretation NEGATIVE FOR INTRAEPITHELIAL LESION OR MALIGNANCY 12/06/2022 3:06 PM EDT [facility] at 1506 EDT Specimen Adequacy Satisfactory for evaluation; endocervical/villanueva sformation zone component present. Slide imaged by the ThinPrep Imaging system and selected 22 corado reviewed then full manual screening. 12/06/2022 3:06 PM EDT [facility] Cervical cytology is a screening [...] results is suggested (please call Microbiology at [phone] for results). 12/06/2022 3:06 PM EDT [facility] Menstrual Status Cyclic 12/07/19 3:06 PM EDT [facility] Contraceptive History Not Applicable 12/06/2022 3:06 PM EDT [facility] Screening Type Routine Screen 2022 3:06 PM EDT [facility] High Risk? No 12/06/2022 3:06 PM EDT [facility] HPV Testing Requested? No HPV Testing Requested 12/06/2022 3:06 PM EDT [facility] Previous Cancer History No 12/06/2022 3:06 PM EDT [facility] Clinical Information R10.2 - Pelvic and perineal pain [ICD-10-CM] 12/06/2022 3:06 PM EDT [facility] Last Menstrual Period 10/25/2022 12/06/2022 3:06 PM EDT [facility] Swab Vaginal and cervical cytologic material / Unknown Non-blood Collection / Unknown 11/30/2022 3:09 PM EDT 11/30/2022 4:15 PM EDT us Rhea Ramos MD LAB CYTOLOGY ORDERABLES Fi nal Result [facility] [address] [place] [address] * HIV 1 & 2 Antibody/Antigen Screen (04/30/2021 8:23 PM EDT) HIV 1 & 2 Antibody/Anti gen Screen Nonreactive Nonreactive 04/30/2021 8:23 PM EDT [facility] Blood Venous blood specimen / Unknown 04/30/2021 3:09 PM EDT Rhea Ramos MD LAB BLOOD ORDERABLES Final Result Performing Organization Address City/[facility]/ZIP Co de Phone Number [facility] [address] [place] [address] * Hepatitis C Antibody (04/30/2021 8:21 PM EDT) Pathologist [facility] Hepatitis C Antibody Negative Negative 04/30/2021 8:21 PM EDT [facility] Blood Venous blood specimen / Unknown 04/30/2021 3:09 PM EDT Rhea Ramos MD LAB BLOOD ORDERABLES Final Result Performing Organization Address [facility] Co de Phone Number [facility] [address] [place] [address] from Last 3 Months or Most Recently Relevant to Health Maintenance Insurance MEDICAID Advance Directives * Full Code (Latest Code Status on File) Date Activated Date Inactivated Comments 10/23/2021 12:34 PM 10/26/2021 4:44 PM Question Answer Comments Patient has decision-making capacity? Yes Care Teams Long Wall Mining Machine Helper Relationship Specialty Start Date End Date Krysten Burt MD [address] [facility] [address] [place] [address] PCP - General Adolescent Medicine 12/29/22
--- OUTSIDE RECORDS SUMMARY | 2025-02-15 14:32 | XMS_ITS | Encounter Summary ---
Author Organization [employer] ([place], [place], [place], [place]) Address [address] [place] [address] Care Team Providers Care Compounding Assistant Name Role Phone Unavailable Primary Care Provider Unavailabl e Encounter Details Date Type Department Care Team (Late st Contact Info) Description 04/08/2021 Transcribed Document [facility] [place] Medicine [facility] [place] [address] ProviderJuan Carlos MD [address] [place] [address] Social History Tobacco Use Types [...]
== END 2025-02-15 23:59 | disposition home or self-care (01) ==
LOC: RAD 14:27
PROVIDERS: Visit Provider Obstetrics & Gynecology
DX: O28.3 Abnormal ultrasonic finding on antenatal screening of mother (principal); O36.5930 Maternal care for other known or suspected poor fetal growth, third trimester, not applicable or unspecified; Z3A.36 36 weeks gestation of pregnancy
CPT/HCPCS: 76819

== ENCOUNTER 2025-02-16 19:17 | Outpatient (CLI) | payer OTHER, SELFPAY ==
--- OUTSIDE RECORDS SUMMARY | 2025-02-16 19:21 | XMS_ITS | Encounter Summary ---
Author Organization [employer] ([place], [place], [place], [place]) Address [address] [place] [address] Care Team Providers Care Kennel Operator Name Role Phone Unavailable Primary Care Provider Unavailabl e Encounter Details Date Type Department Care Team (Late st Contact Info) Description 04/11/2021 Transcribed Document [facility] [place] Family Medicine [address] [place] [address] ProviderJuan Carlos MD [address] [place], [place] [id number] Social History Tobacco Use Types Packs/Day Years [...] Historical ProviderMD - 04/11/2021 9:48 AM CDT [place] Suicide Severity Rating Scale (C-SSRS) Entered On: 04/11/2021 12:05 EDT Performed On: 04/11/2021 12:04 EDT by Lacey Chau RN [place] Suicide Severity Rating Scale (C-SSRS) CSSRS Past Month Wish to be : No CSSRS Past Month Suicidal Thoughts : No CSSRS Lifetime Suicide Behavior : No Suicide Severity Rating Score : 0 Suicide Severity Rating : No Additional Care Required at this time Lacey Chau RN - 04/11/2021 12:04 EDT Electronically signed by Chana [facility] Conversion Roofer Assistant Cerner at 11/21/2022 11:45 PM CDT documented in this encounter Plan of Treatment Not on file documented as of this encounter Visit Diagnoses Not on filedocumented in this encounter
--- OUTSIDE RECORDS SUMMARY | 2025-02-16 19:21 | XMS_ITS | Encounter Summary ---
Author Organization [employer] ([place], [place], [place], [place]) Address [address] [place] [address] Care Team Providers Care E Business Project Manager Name Role Phone Unavailable Primary Care Provider Unavailabl e Encounter Details Date Type Department Care Team (Late st Contact Info) Description 04/07/2021 Transcribed Document [facility] [place] [facility] [place] [address] ProviderJuan Carlos MD [address] [place] [address] Social History Tobacco Use Types Packs/Day [...] Non - Urgent Tracking Group : [facility] ED East MARIANA ESTEVES RN - 04/07/2021 21:15 EDT Mode of Arrival : Ambulatory Transported to ED by : Private vehicle To Room Via : Ambulate Accompanied By : Significant other ED Vital Signs : Document Height & Weight : Document ED Allergies : Document ED Reason for Visit : Document Status : Confirmed positive MARIANA ESTVEES RN - 04/07/2021 21:15 EDT Infectious Disease [...] PNED ; Probability: 0 ; Diagnosis Code: [id number] ED Height and Weight Height Source : Measured Height Entry Format : [place] Height, Feet : 5 ft(Converted to: 152 cm, 60 Inch) Height, Inches : 7 Inch(Converted to: 0 ft 7 Inch, 17.78 cm) Clinical Height : 170.18 cm Weight Source, ED : Standing scale Weight Entry Format : [place] Weight, Pounds : 128 lb Clinical Dosing Weight : 58.18 kg Body Surface Area (BSA) : 1.67 m2 Body Mass Index : 20.1 kg/m2 [place] Body Weight (IBW) : 61.16 kg MARIANA ESTEVES RN - 04/07/2021 21:15 EDT documented in this encounter Plan of Treatment Not on file documented as of this encounter Visit Diagnoses Not on filedocumented in this encounter
--- OUTSIDE RECORDS SUMMARY | 2025-02-16 19:21 | XMS_ITS | Encounter Summary ---
Author Organization [employer] ([place], [place], [place], [place]) Address [address] [place] [address] Care Team Providers Care Job Coaching Name Role Phone Unavailable Primary Care Provider Unavailabl e Encounter Details Date Type Department Care Team (Late st Contact Info) Description 04/07/2021 Transcribed Document [facility] [place] Family Medicine [facility] [place] [address] ProviderJuan Carlos MD [facility] [place] [id number] Social History Tobacco Use Types Packs/Day Years [...] Communication Barrier : None Primary Language : Romansh General Information Comment : seen by provider [...]
--- OUTSIDE RECORDS SUMMARY | 2025-02-16 19:21 | XMS_ITS | Clinical Summary ---
Author Organization [employer] [facility] Address [address] [place] [phone] Phone Care Team Providers Care Devops Name Role Phone Unavailable Unavailable Conditions or Problems No information available. Medications No information available. Medications Administered No information available. Allergies, Adverse Reactions, Alerts No information available. Results No information available. Plan of Care No information available. Procedures No information available. Vital Signs No information available. Immunizations No information available. Advance Directives No information available.
--- OUTSIDE RECORDS SUMMARY | 2025-02-16 19:21 | XMS_ITS | Encounter Summary ---
Author Organization [employer] ([place], [place], [place], [place]) Address [address] [place] [address] Care Team Providers Care Warehouse Shipping Clerk Name Role Phone Unavailable Primary Care Provider Unavailabl e Encounter Details Date Type Department Care Team (Late st Contact Info) Description 04/07/2021 Transcribed Document [facility] [place] [facility] [place] [address] ProviderJuan Carlos MD [address] [place] [address] Social History Tobacco Use Types [...] transitioning her care from her OB at [facility] her sleep as to a high school social studies tutor at . Denies any abdominal pain or [...] COVID-19: What Your Test Results Mean - [facility]. Follow up with: Follow up with primary care provider Within 2 to 3 days Call for follow up appointment. Return to the ER for any new or worsening symptoms as discussed, especially difficulty breathing or low O2 sat below 90%. Drink plenty of fluids and rest. You may take Tylenol as needed. Follow-up with your DEVOPS DEVELOPER.; , Follow up with primary care provider Within 2 to 3 days Call for follow up appointment. Return to the ER for any new or worsening symptoms as discussed, especially difficulty breathing or low O2 sat below 90%. Drink plenty of fluids and rest. You may take Tylenol as needed. Follow-up with your DEVOPS DEVELOPER.. Counseled: Patient, Regarding diagnosis, Regarding diagnostic results, Regarding treatment plan, Patient indicated understanding of instructions. documented in this encounter Plan of Treatment Not on file documented as of this encounter Visit Diagnoses Not on filedocumented in this encounter
--- OUTSIDE RECORDS SUMMARY | 2025-02-16 19:21 | XMS_ITS | Encounter Summary ---
Author Organization [employer] ([place], [place], [place], [place]) Address [address] [place] [address] Care Team Providers Care Paper Sheeter Name Role Phone Unavailable Primary Care Provider Unavailabl e Encounter Details Date Type Department Care Team (Late st Contact Info) Description 04/11/2021 Transcribed Document [facility] [place] Family Medicine [address] [place] [address] ProviderJuan Carlos MD [address], [place] [id number] Social History Tobacco Use Types Packs/Day Years [...] - 04/11/2021 12:04 EDT Electronically signed by Brian [employer] Conversion Dictating Transcribing Machine Servicer Cerner at 11/21/2022 11:53 PM CDT documented in this encounter Plan of Treatment Not on file documented as of this encounter Visit Diagnoses Not on filedocumented in this encounter
--- OUTSIDE RECORDS SUMMARY | 2025-02-16 19:21 | XMS_ITS | Encounter Summary ---
Author Organization [employer] ([place], [place], [place], [place]) Address [address] [place] [address] Care Team Providers Care Machine Heddle Cleaner Name Role Phone Unavailable Primary Care Provider Unavailabl e Encounter Details Date Type Department Care Team (Late st Contact Info) Description 04/07/2021 Transcribed Document [facility] [place] [address] [place] [address] ProviderJuan Carlos MD [address] [place], [place] [id number] Social History Tobacco Use Types Packs/Day Years [...]
--- OUTSIDE RECORDS SUMMARY | 2025-02-16 19:21 | XMS_ITS | Encounter Summary ---
Author Organization [employer] ([place], [place], [place], [place]) Address [address] [place] [address] Care Team Providers Care Outside Salesman Name Role Phone Unavailable Primary Care Provider Unavailabl e Encounter Details Date Type Department Care Team (Late st Contact Info) Description 04/07/2021 Transcribed Document [facility] [place] Family Medicine [facility] [place] [address] ProviderJuan Carlos MD [address] [place] [address] Social History Tobacco Use Types [...] 11:58 PM CDT Electronically signed by Chana [facility] Conversion Photoresist Printer Martinener at 11/21/2022 11:36 PM CDT documented in this encounter Plan of Treatment Not on file documented as of this encounter Visit Diagnoses Not on filedocumented in this encounter
--- OUTSIDE RECORDS SUMMARY | 2025-02-16 19:21 | XMS_ITS | Clinical Summary ---
Author Organization [employer] ([place], [place], [place], [place]) Address [address] [place] [address] Care Team Providers Care Grocery Team Member Name Role Phone Unavailable Primary Care Provider [...]
--- OUTSIDE RECORDS SUMMARY | 2025-02-16 19:21 | XMS_ITS | Encounter Summary ---
Author Organization [employer] ([place], [place], [place], [place]) Address [address] [place] [address] Care Team Providers Care Birth Attendant Name Role Phone Unavailable Primary Care Provider Unavailabl e Encounter Details Date Type Department Care Team (Late st Contact Info) Description 04/11/2021 Transcribed Document [facility] [place] [facility] [place] [address] ProviderJuan Carlos MD [facility] [place] [id number] Social History Tobacco Use Types Packs/Day Years [...] Communication Barrier : None Primary Language : Setswana Any Spiritual/Cultural Needs or Requests : No [...]
--- OUTSIDE RECORDS SUMMARY | 2025-02-16 19:21 | XMS_ITS | Referral Summary ---
Author Organization [employer] ([place], [place], [place], [place]) Address [address] [place] [address] Care Team Providers Care Chief Digital Media Officer Name Role Phone Unavailable Primary Care [...]
--- OUTSIDE RECORDS SUMMARY | 2025-02-16 19:21 | XMS_ITS | Encounter Summary ---
Author Organization [employer] ([place], [place], [place], [place]) Address [address] [place] [address] Care Team Providers Care Gun Synchronizer Name Role Phone Unavailable Primary Care Provider Unavailabl e Encounter Details Date Type Department Care Team (Late st Contact Info) Description 04/07/2021 Transcribed Document [facility] [place] Family Medicine [address] [place] [address] ProviderJuan Carlos MD [address] [place], [place] [id number] Social History Tobacco Use Types Packs/Day Years [...] Historical ProviderMD - 04/07/2021 7:59 PM CDT [place] Suicide Severity Rating Scale (C-SSRS) Entered On: 04/08/2021 0:17 EDT Performed On: 04/08/2021 0:16 EDT by MARIANA ESTEVES RN Sharp Suicide Severity Rating Scale (C-SSRS) CSSRS Past [...]
--- OUTSIDE RECORDS SUMMARY | 2025-02-16 19:21 | XMS_ITS | Encounter Summary ---
Author Organization [employer] ([place], [place], [place], [place]) Address [address] [place] [address] Care Team Providers Care Architecture Instructor Name Role Phone Unavailable Primary Care Provider Unavailabl e Encounter Details Date Type Department Care Team (Late st Contact Info) Description 04/11/2021 Transcribed Document [facility] [place] Family Medicine [facility] [place] [address] ProviderJuan Carlos MD [facility] [place] [address] Social History Tobacco Use Types [...] Patient reports brownish-red vaginal spotting that is public relations than her menstrual period. This began yesterday and has continued today. She denies any abdominal pain or pelvic cramping. Also denies fever, nausea/vomiting, vaginal discharge. Patient tested positive for COVID-19 4 days ago and yesterday received the monoclonal antibody infusion. She currently follows with an SUPERVISOR FINE GRADING at [facility], however is in the process of [...] April 11, 2021 14:10 EDT Encounter info: [id number], BEREKET Diaz [facility], Emergency Room, 04/11/2021 - 04/11/2021 . Reexamination/ [...] discussed strict pelvic rest and follow-up with SUPERVISOR FINE GRADING. Patient voices understanding and agreement with plan. [...] pelvic rest as discussed. Follow-up with your SUPERVISOR FINE GRADING in 2 days for repeat assessment., Follow up with primary care provider Within 2 to 3 days Call for follow up appointment. Return to the ER for any new or worsening symptoms as discussed, especially fever, persistent pelvic pain, vaginal bleeding greater than 2 pads/hour. Recommend pelvic rest as discussed. Follow-up with your SUPERVISOR FINE GRADING in 2 days for repeat assessment., Follow up with primary care provider Within 2 to 3 days Call for follow up appointment. Return to the ER for any new or worsening symptoms as discussed, especially fever, persistent pelvic pain, vaginal bleeding greater than 2 pads/hour. Recommend pelvic rest as discussed. Follow-up with your SUPERVISOR FINE GRADING in 2 days for repeat assessment.. Counseled: Patient, Regarding diagnosis, Regarding diagnostic results, Regarding treatment plan, Patient indicated understanding of instructions. documented in this encounter Plan of Treatment Not on file documented as of this encounter Visit Diagnoses Not on filedocumented in this encounter
--- OUTSIDE RECORDS SUMMARY | 2025-02-16 19:21 | XMS_ITS | Encounter Summary ---
Author Organization [employer] ([place], [place], [place], [place]) Address [address] [place] [address] Care Team Providers Care Director Clinical Operations Name Role Phone Unavailable Primary Care Provider Unavailabl e Encounter Details Date Type Department Care Team (Late st Contact Info) Description 04/11/2021 Transcribed Document [facility] [place] Family Medicine [address] [place] [address] ProviderJuan Carlos MD [address] [place], [place] [id number] Social History Tobacco Use Types Packs/Day Years [...]
--- OUTSIDE RECORDS SUMMARY | 2025-02-16 19:22 | XMS_ITS | Encounter Summary ---
Author Organization [employer] ([place], [place], [place], [place]) Address [address] [place] [address] Care Team Providers Care Lead Shop Operator Name Role Phone Unavailable Primary Care Provider Unavailabl e Encounter Details Date Type Department Care Team (Late st Contact Info) Description 04/11/2021 Transcribed Document [facility] [place] Family Medicine [facility] [place] [address] ProviderJuan Carlos MD [address] [place] [address] Social History Tobacco Use Types [...] Carlos ProviderMD - 04/11/2021 2:23 PM CDT [place] [id number] LIBERTAD WEBBNE :2000 Visit Time:04/11/2021 Your Visit [...] pelvic rest as discussed. Follow-up with your FASHION STYLING INTERN in 2 days for repeat assessment. Allergies [...] provider. Document Revised: 08/31/2018 Document Reviewed: 10/21/2017 [employer] Patient Education ?? 2020 [employer] Inc. Vaginal Bleeding During , First Trimester [...] this is safe. General instructions ??? Take aejz-pbu-laeyywx and prescription medicines only as told by [...] provider. Document Revised: 11/13/2019 Document Reviewed: 10/27/2017 [employer]ense [employer] Patient Education ?? 2020 [employer]. Subchorionic Hematoma A subchorionic hematoma is [...] Reviewed: 09/20/2017 Elsevier Patient Education ?? 2020 [employer] Inc. Emergency Awareness and Preventative Care STROKE [...] Assistance with quitting is available by contacting 0-915-BFDUNOW. This is a free resource providing counseling, support, and referral. Or you may contact your personal physician. [place] Suicide Prevention Lifeline: The National Suicide Prevention [...] was given the opportunity to ask questions. Patient/Oracle Soa Architect Name: Patient/Oracle Soa Architect Signature: Relationship to Patient: Clinician/Hospital Oracle Soa Architect Signature: Please Provide a Telephone Number Where You Can Be Reached: Is it Permissible To Leave a Message? Date: Electronically signed by Chana, [facility] Conversion Funeral Home Makeup Artist Cerner at 11/21/2022 11:34 PM CDT documented in this encounter Plan of Treatment Not on file documented as of this encounter Visit Diagnoses Not on filedocumented in this encounter
--- OUTSIDE RECORDS SUMMARY | 2025-02-16 19:22 | XMS_ITS | Clinical Summary ---
Author Organization [facility] Address [address] [place] [address] Care Team Providers Care Undertaker Helper Name Role Phone Krysten Burt MD Primary Care Provider [phone] Allergies No known active allergies Medications pseudoephedrine [...] (10/02/2021): Added automatically from request for surgery [id number] Immunizations Immunization Administration Dates Next Due Tdap [...] place to sleep or slept in a penitentiary (including now)? No 03/27/2024 [place] Depression Scale Answer Date Recorded [place] Depression Scale Total 8 12/07/2021 The thought [...] 12/01/2023 11/30/2022, 11/30/2022, 07/15/2022, Additional history exists [id number] Vaccine ( - season) 2024 UKY- SDOH [...] Detected Not Detected 12/02/2022 9:37 AM EDT [facility] Swab Endocervical structure / Unknown Non-blood Collection / Unknown 11/30/2022 3:09 PM EDT 11/30/2022 4:07 PM EDT Narrative [facility] - 12/02/2022 9:37 AM EDT This test is performed by the Neosens m2000 instrument for Real Time PCR C. trachomatis and N. gonorrhea. This test is FDA approved for use with endocervical, vaginal, and urine specimens. This test is used for clinical purposes. It should not be regarded as invesigational or for research. The [facility] Clinical Microbiology Laboratory is certified under the Clinical Laboratory Improvement Amendments of 1988 (CLIA-88) as qualified to perform high complexity clinical laboratory testing. us Rhea Ramos MD LAB MICROBIOLOGY - GENERAL ORDERABLES Final Result [facility] [address] [place] [address] * Pap Test (11/30/2022 3:09 PM EDT) Case Report Cytology Case: [id number] Authorizing Provider: Rhea Ramos MD Collected: 11/30/2022 1509 Ordering Location: Medical Office Building Received: 11/30/2022 1616 Obstetrics and Gynecology First Screen: Shayy Gordon Specimen: ThinPrep Pap Test, Liquid-Based Cervical/Vaginal, CERVICAL/VAGINAL 12/06/2022 3:06 PM EDT [facility] Interpretation NEGATIVE FOR INTRAEPITHELIAL LESION OR MALIGNANCY 12/06/2022 3:06 PM EDT [facility] at 1506 EDT Specimen Adequacy Satisfactory for evaluation; endocervical/villanueva sformation zone component present. Slide imaged by the ThinPrep Imaging system and selected 22 corado reviewed then full manual screening. 12/06/2022 3:06 PM EDT [facility] Cervical cytology is a [...] results is suggested (please call Microbiology at [phone] for results). 12/06/2022 3:06 PM EDT [facility] Menstrual Status Cyclic 12/07/19 3:06 PM EDT [facility] Contraceptive History Not Applicable 12/06/2022 3:06 PM EDT [facility] Screening Type Routine Screen 2022 3:06 PM EDT [facility] High Risk? No 12/06/2022 3:06 PM EDT [facility] HPV Testing Requested? No HPV Testing Requested 12/06/2022 3:06 PM EDT [facility] Previous Cancer History No 12/06/2022 3:06 PM EDT [facility] Clinical Information R10.2 - Pelvic and perineal pain [ICD-10-CM] 12/06/2022 3:06 PM EDT [facility] Last Menstrual Period 10/25/2022 12/06/2022 3:06 PM EDT [facility] Swab Vaginal and cervical cytologic material / Unknown Non-blood Collection / Unknown 11/30/2022 3:09 PM EDT 11/30/2022 4:15 PM EDT us Rhea Ramos MD LAB CYTOLOGY ORDERABLES Fi nal Result [facility] [address] [place] [address] * HIV 1 & 2 Antibody/Antigen Screen (04/30/2021 8:23 PM EDT) HIV 1 & 2 Antibody/Anti gen Screen Nonreactive Nonreactive 04/30/2021 8:23 PM EDT [facility] Blood Venous blood specimen / Unknown 04/30/2021 3:09 PM EDT Rhea Ramos MD LAB BLOOD ORDERABLES Final Result Performing Organization Address City/[facility]/ZIP Co de Phone Number [facility] [address] [place] [address] * Hepatitis C Antibody (04/30/2021 8:21 PM EDT) Pathologist [facility] Hepatitis C Antibody Negative Negative 04/30/2021 8:21 PM EDT [facility] Blood Venous blood specimen / Unknown 04/30/2021 3:09 PM EDT Rhea Ramos MD LAB BLOOD ORDERABLES Final Result Performing Organization Address [facility] Co de Phone Number [facility] [address] [place] [address] from Last 3 Months or Most Recently Relevant to Health Maintenance Insurance MEDICAID Advance Directives * Full Code (Latest Code Status on File) Date Activated Date Inactivated Comments 10/23/2021 12:34 PM 10/26/2021 4:44 PM Question Answer Comments Patient has decision-making capacity? Yes Care Teams Undertaker Helper Relationship Specialty Start Date End Date Krysten Burt MD [address] [facility] [address] [place] [address] PCP - General Adolescent Medicine 12/29/22
--- OUTSIDE RECORDS SUMMARY | 2025-02-16 19:22 | XMS_ITS | Encounter Summary ---
Author Organization [employer] ([place], [place], [place], [place]) Address [address] [place] [address] Care Team Providers Care Tile Setter Supervisor Name Role Phone Unavailable Primary Care Provider Unavailabl e Encounter Details Date Type Department Care Team (Late st Contact Info) Description 04/10/2021 Transcribed Document [facility] [place] Family Medicine [facility] [place] [address] ProviderJuan Carlos MD [address] [place] [address] Social History Tobacco Use Types [...] Cavazos MD - 04/10/2021 8:45 AM CDT [place] [id number] LIBERTAD DE LEONNE :2000 Visit Time:04/10/2021 Your [...] or High Risk [phone] [address]: [address] [place] [id number]- [facility] (1) Follow Up with For a clinic referral service , just dial: [phone] (WELL) Our experts will provide you with [...] water are not available, use alcohol-based hand weather anchor. ??? Avoid touching your mouth, face, eyes, [...] pump parts after expressing milk. Follow the pouncer's instructions to clean and disinfect all pump [...] (CDC): www.cdc.gov/coronavirus/2019-ncov/ ??? World Health Organization (WHO): www.who.int/news-room/q-a-detail/c-n-pi-ollmu-76-jpmffzahu-klmsdkylbp-jay-nqzk stfeeding ??? [place] [employer] Gynec[employer] (ACOG): www.acog.org/patient-resources/faqs//gqkuthzqydc-vqxmfjnyk-nql-breast feeding Questions to ask your health care [...] provider. Document Revised: 07/25/2020 Document Reviewed: 07/25/2020 App[employer]ially Patient Education ?? 2020 [employer]. 10 Things You Can Do to Manage [...] clean your hands with an alcohol-based hand weather anchor that contains at least 60% alcohol. 8. [...] Reviewed: 07/10/2020 Elsevier Patient Education ?? 2020 [employer]ially Inc. Emergency Awareness and Preventative Care STROKE [...] Assistance with quitting is available by contacting 6-877-FFJWNOW. This is a free resource providing counseling, support, and referral. Or you may contact your personal physician. [place] Suicide Prevention Lifeline: The National Suicide Prevention [...] was given the opportunity to ask questions. Patient/Tie Presser Name: Patient/Tie Presser Signature: Relationship to Patient: Clinician/Hospital Tie Presser Signature: Please Provide a Telephone Number Where You Can Be Reached: Is it Permissible To Leave a Message? Date: documented in this encounter Plan of Treatment Not on file documented as of this encounter Visit Diagnoses Not on filedocumented in this encounter
--- OUTSIDE RECORDS SUMMARY | 2025-02-16 19:22 | XMS_ITS | Encounter Summary ---
Author Organization [employer] ([place], [place], [place], [place]) Address [address] [place] [address] Care Team Providers Care Soda Fountain Clerk Name Role Phone Unavailable Primary Care Provider Unavailabl e Encounter Details Date Type Department Care Team (Late st Contact Info) Description 04/11/2021 Transcribed Document [facility] [place] Family Medicine [facility] [place] [address] ProviderJuan Carlos MD [address] [place] [address] Social History Tobacco Use Types [...] 12:12 PM CDT Electronically signed by Chana [facility] Conversion Gate Technician Yu at 11/21/2022 11:35 PM CDT documented in this encounter Plan of Treatment Not on file documented as of this encounter Visit Diagnoses Not on filedocumented in this encounter
--- OUTSIDE RECORDS SUMMARY | 2025-02-16 19:22 | XMS_ITS | Encounter Summary ---
Author Organization [employer] ([place], [place], [place], [place]) Address [address] [place] [address] Care Team Providers Care Fresh Foods Clerk Name Role Phone Unavailable Primary Care Provider Unavailabl e Encounter Details Date Type Department Care Team (Late st Contact Info) Description 04/10/2021 Transcribed Document [facility] [place] Family Medicine [facility] [place] [address] ProviderJuan Carlos MD [address] [place] [address] Social History Tobacco Use Types [...] Cavazos MD - 04/10/2021 8:46 AM CDT [place] [id number] LIBERTAD DE LEONNE :2000 Visit Time:04/10/2021 Your [...] Risk [phone] [address]: [address] [place] [id number]- [facility] (1) Follow Up with For a clinic referral service , just dial: [phone] (WELL) Our experts will provide you with [...] water are not available, use alcohol-based hand warp hanger. ??? Avoid touching your mouth, face, eyes, [...] pump parts after expressing milk. Follow the senior oracle applications developer's instructions to clean and disinfect all pump [...] (CDC): www.cdc.gov/coronavirus/2019-ncov/ ??? World Health Organization (WHO): www.who.int/news-room/q-a-detail/e-e-tp-zjkpo-66-wgujevdla-jjwqknkapa-mqd-yjay stfeeding ??? [place] [employer] Obstetricians and Gynecologists (ACOG): www.acog.org/patient-resources/faqs//pxnmhkwsowz-mzsaqnqsh-yiw-breast feeding Questions to ask your health care [...] provider. Document Revised: 07/25/2020 Document Reviewed: 07/25/2020 [employer] Patient Education ?? 2020 [employer]. 10 Things You Can Do to Manage [...] clean your hands with an alcohol-based hand warp hanger that contains at least 60% alcohol. 8. [...] Reviewed: 07/10/2020 Elsevier Patient Education ?? 2020 [employer]a Inc. Emergency Awareness and Preventative Care STROKE [...] Assistance with quitting is available by contacting 3-178-QEAVNOW. This is a free resource providing counseling, support, and referral. Or you may contact your personal physician. [place] Suicide Prevention Lifeline: The National Suicide Prevention [...] was given the opportunity to ask questions. Patient/Associate Civil Engineer Name: Patient/Associate Civil Engineer Signature: Relationship to Patient: Clinician/Hospital Associate Civil Engineer Signature: Please Provide a Telephone Number Where You Can Be Reached: Is it Permissible To Leave a Message? Date: Electronically signed by Chana [facility] Conversion Milling Machine Operator Yu at 11/21/2022 11:37 PM CDT documented in this encounter Plan of Treatment Not on file documented as of this encounter Visit Diagnoses Not on filedocumented in this encounter
--- OUTSIDE RECORDS SUMMARY | 2025-02-16 19:22 | XMS_ITS | Encounter Summary ---
Author Organization [employer] ([place], [place], [place], [place]) Address [address] [place] [address] Care Team Providers Care Logistics Planning Engineer Name Role Phone Unavailable Primary Care Provider Unavailabl e Encounter Details Date Type Department Care Team (Late st Contact Info) Description 04/10/2021 Transcribed Document [facility] [place] Family Medicine [facility] [place] [address] ProviderJuan Carlos MD [facility] [place], [place] [id number] Social History Tobacco Use Types Packs/Day Years [...] Performed On: 04/10/2021 6:46 EDT by Nasreen Adlridge RN-PATIENT CARE BEDSIDE NON-EXEMPT ED Quick Look Assessment Level of Consciousness : Alert, Awake Affect/Behavior : Appropriate, Calm, Cooperative Skin Temperature : Warm Skin Description : Normal for ethnicity Nasreen Aldridge RN-PATIENT CARE BEDSIDE NON-EXEMPT - 04/10/2021 6:46 EDT ED General-Functional Assess Preferred Communication Mode : Verbal Communication Barrier : None Primary Language : Upper Sorbian Any Spiritual/Cultural Needs or Requests : No [...]
--- OUTSIDE RECORDS SUMMARY | 2025-02-16 19:22 | XMS_ITS | Encounter Summary ---
Author Organization [employer] ([place], [place], [place], [place]) Address [address] [place] [address] Care Team Providers Care Greige Goods Inspector Name Role Phone Unavailable Primary Care Provider Unavailabl e Encounter Details Date Type Department Care Team (Late st Contact Info) Description 04/10/2021 Transcribed Document [facility] [place] [facility] [place] [address] ProviderJuan Carlos MD [address] [place], [place] [id number] Social History Tobacco Use Types Packs/Day Years [...] Historical ProviderMD - 04/10/2021 5:27 AM CDT [place] Suicide Severity Rating Scale (C-SSRS) Entered On: 04/10/2021 6:47 EDT Performed On: 04/10/2021 6:46 EDT by Nasreen Aldridge RN-PATIENT CARE BEDSIDE NON-EXEMPT [place] Suicide Severity Rating Scale (C-SSRS) CSSRS Past [...]
--- OUTSIDE RECORDS SUMMARY | 2025-02-16 19:22 | XMS_ITS | Encounter Summary ---
Author Organization [employer] ([place], [place], [place], [place]) Address [address] [place] [address] Care Team Providers Care Shank Pinner Name Role Phone Unavailable Primary Care Provider Unavailabl e Encounter Details Date Type Department Care Team (Late st Contact Info) Description 04/10/2021 Transcribed Document [facility] Radiology [address] [place] [address] Herbie Méndez MD [address] [place] [address] Dept[place] [address] Social History Tobacco Use Types [...] 1-Time . Notes: spoke to multiple Ob gas station cashier, with recomendations, patient remains stable, US update [...] a clinic referral service , just dial: [phone] (WELL) Our experts will provide you with [...]
--- OUTSIDE RECORDS SUMMARY | 2025-02-16 19:22 | XMS_ITS | Encounter Summary ---
Author Organization [employer] ([place], [place], [place], [place]) Address [address] [place] [address] Care Team Providers Care Clinical Care Coordinator Name Role Phone Unavailable Primary Care Provider Unavailabl e Encounter Details Date Type Department Care Team (Late st Contact Info) Description 04/08/2021 Transcribed Document [facility] [place] [place] Family Medicine [facility] [place] [address] ProviderJuan Carlos MD [facility] [place], [place] [id number] Social History Tobacco Use Types Packs/Day Years [...] 04/08/2021 0:17 EDT Electronically signed by Chana [facility] Conversion Inlayer Silver Cerner at 11/21/2022 11:44 PM CDT documented in this encounter Plan of Treatment Not on file documented as of this encounter Visit Diagnoses Not on filedocumented in this encounter
--- OUTSIDE RECORDS SUMMARY | 2025-02-16 19:22 | XMS_ITS | Encounter Summary ---
Author Organization [employer] ([place], [place], [place], [place]) Address [address] [place] [address] Care Team Providers Care Disk Operator Name Role Phone Unavailable Primary Care Provider Unavailabl e Encounter Details Date Type Department Care Team (Late st Contact Info) Description 04/10/2021 Transcribed Document [facility] [place] Medicine [place] [address] ProviderJuan Carlos MD [place] [address] Social History Tobacco Use Types [...] EDT DCP GENERIC CODE Tracking Group : [facility] East Tracking Acuity : 3 - [...] caused by 2019 novel coronavirus (SNOMED CT :[id number] ) Name of Problem: Disease caused by 2019 novel coronavirus ; Recorder: SYSTEM, SYSTEM; Confirmation: Confirmed ; Classification: Medical ; Code: [id number] ; Last Updated: 04/07/2021 22:55 EDT ; Life Cycle Date: 04/07/2021 ; Life Cycle Status: Active ; Vocabulary: SNOMED CT ; Comments: 04/07/2021 22:55 - SYSTEM, SYSTEM Problem added by a rule: [id number]. Diagnoses(Active) Medication administration Date: 04/10/2021 ; Diagnosis Type: Reason For Visit ; Confirmation: Complaint of ; Clinical Dx: Medication administration ; Classification: Medical ; Clinical Service: Emergency medicine ; Code: PNED ; Probability: 0 ; Diagnosis Code: [id number] ED Height and Weight Height Source : Measured Height Entry Format : [place] Height, Feet : 5 ft(Converted to: 152 cm, 60 Inch) Height, Inches : 7 Inch(Converted to: 0 ft 7 Inch, 17.78 cm) Clinical Height : 170.18 cm Weight Source, ED : Standing scale Weight Entry Format : [place] Weight, Pounds : 128 lb Clinical Dosing Weight : 58.18 kg Body Surface Area (BSA) : 1.67 m2 Body Mass Index : 20.1 kg/m2 [place] Body Weight (IBW) : 61.16 kg KIYA GUERRA RN - 04/10/2021 5:42 EDT Pain Assessment Pain Assessment : Initial assessment Pain Scale Used : 0-10 Scale Location : Other: all over Quality : Aching KIYA GUERRA RN - 04/10/2021 5:42 EDT Pain Scale Intensity : 8 KYIA GUERRA RN - 04/10/2021 5:42 EDT Image [...]
--- OUTSIDE RECORDS SUMMARY | 2025-02-16 19:22 | XMS_ITS | Encounter Summary ---
Author Organization [employer] ([place], [place], [place], [place]) Address [address] [place] [address] Care Team Providers Care Wastewater Technician Name Role Phone Unavailable Primary Care Provider Unavailabl e Encounter Details Date Type Department Care Team (Late st Contact Info) Description 04/10/[address] [facility] [place] [facility] [place] [address] ProviderJuan Carlos MD [facility] [place] [address] Social History Tobacco Use [...]
--- OUTSIDE RECORDS SUMMARY | 2025-02-16 19:22 | XMS_ITS | Encounter Summary ---
Author Organization [employer] ([place], [place], [place], [place]) Address [address] [place] [address] Care Team Providers Care Learning Technologies Specialist Name Role Phone Unavailable Primary Care Provider Unavailabl e Encounter Details Date Type Department Care Team (Late st Contact Info) Description 04/11/2021 Transcribed Document [facility] [place] [facility] [place] [address] ProviderJuan Carlos MD [address] [place] [address] Social History Tobacco Use Types [...]
--- OUTSIDE RECORDS SUMMARY | 2025-02-16 19:22 | XMS_ITS | Encounter Summary ---
Author Organization [employer] ([place], [place], [place], [place]) Address [address] [place] [address] Care Team Providers Care Glaze Wiper Name Role Phone Unavailable Primary Care Provider Unavailabl e Encounter Details Date Type Department Care Team (Late st Contact Info) Description 04/10/2021 Transcribed Document [facility] [place] Family Medicine [address] [place] [address] ProviderJuan Carlos MD [address] [place], [place] [address] Social History Tobacco Use Types Packs/Day Years [...]
--- OUTSIDE RECORDS SUMMARY | 2025-02-16 19:22 | XMS_ITS | Encounter Summary ---
Author Organization [employer] ([place], [place], [place], [place]) Address [address] [place] [address] Care Team Providers Care Gravel Screener Name Role Phone Unavailable Primary Care Provider Unavailabl e Encounter Details Date Type Department Care Team (Late st Contact Info) Description 04/11/2021 Transcribed Document [facility] [place] [address] ProviderJuan Carlos MD [place] [address] Social History Tobacco Use Types [...] 04/11/2021 14:35 EDT Electronically signed by Chana [facility] Conversion Edger Machine Setter Cerner at 11/21/2022 11:36 PM CDT documented in this encounter Plan of Treatment Not on file documented as of this encounter Visit Diagnoses Not on filedocumented in this encounter
--- OUTSIDE RECORDS SUMMARY | 2025-02-16 19:22 | XMS_ITS | Encounter Summary ---
Author Organization [employer] ([place], [place], [place], [place]) Address [address] [place] [address] Care Team Providers Care Life Skills Coach Name Role Phone Unavailable Primary Care Provider Unavailabl e Encounter Details Date Type Department Care Team (Late st Contact Info) Description 04/08/2021 Transcribed Document [facility] [place] [facility] [place] [address] ProviderJuan Carlos MD [address] [place] [address] Social History Tobacco Use Types [...] Carlos ProviderMD - 04/08/2021 12:05 AM CDT [place] [id number] LIBERTAD WEBBNE :2000 Visit Time:04/07/2021 Your Visit [...] take Tylenol as needed. Follow-up with your CIGARETTE INSPECTOR. Allergies No Known Medication Allergies Immunizations This [...] areas. Get rest and stay hydrated. Take matv-gco-gecnnax medicines, such as acetaminophen, to help you [...] provider. Document Revised: 07/10/2020 Document Reviewed: 07/10/2020 [employer] Patient Education ?? 2020 [employer]. COVID-19: How to Protect Yourself and Others Know how it spreads ??? There is currently no vaccine to prevent coronavirus disease 2019 (COVID-19). ??? The best way to prevent illness is to avoid being exposed to this virus. ??? The virus is thought to spread mainly from ffqemx-rh-kozsrv. ? Between people who are in close [...] are not readily available, use a hand jitney driver that contains at least 60% alcohol. Cover [...] are at higher risk of getting very sick.www.cdc.gov/coronavirus/2019-ncov/jvix-yoodr-pyrouineqyh/nwhdnk-ly-gxbsha -risk.html Cover your mouth and nose with [...] available, clean your hands with a hand jitney driver that contains at least 60% alcohol. Clean and disinfect ??? Clean AND disinfect frequently touched surfaces daily. This includes tables, doorknobs, light switches, countertops, handles, desks, phones, keyboards, toilets, faucets, and sinks. www.cdc.gov/coronavirus/2019-ncov/bawdlus-myzwdgm-mkbk/ywycodyjhjua-wabu-ecmp. html ??? If surfaces are dirty, clean [...] Reviewed: 02/14/2020 Elsevier Patient Education ?? 2020 [employer]. COVID-19 Frequently Asked Questions COVID-19 (coronavirus disease) [...] the coronavirus come from? In July 2019, [place] told the World Health Organization (WHO) about several cases of lung disease (human respiratory illness). These cases were linked to an open seafood and livestock market in the [facility]. The link to the seafood and livestock [...] and virus naming ??? World Health Organization: www.who.int/emergencies/diseases/tqlef-bpcgliuqxhn-2177/technical-guidance Who is at risk for complications from [...] water are not available, use alcohol-based hand jitney driver. ??? Avoid touching your face, mouth, nose, [...] (CDC): www.cdc.gov/coronavirus/2019-ncov/travelers ??? World Health Organization (WHO): www.who.int/emergencies/diseases/pipcq-xalgteyvrkn-2074/travel-advice What should I do if I am sick? General instructions to stop the spread of infection ??? Wash your hands often with soap and water for at least 20 seconds. If soap and water are not available, use alcohol-based hand jitney driver. ??? Cough or sneeze into a tissue, [...] in hot, soapy water or use a counter tender. Air-dry your dishes. ??? Wash laundry in [...] Organization (WHO) ??? Information and news updates: www.who.int/emergencies/diseases/hzbnl-wfiwakawcqs-9229 ??? Coronavirus health topic: www.who.int/health-topics/coronavirus ??? Questions and answers on COVID-19: www.who.int/news-room/q-a-detail/h-o-ahkrdretlxsbv ??? Global tracker: Doculogy.AppTap [place] Academy [employer] Pediatrics (AAP) ??? Information for families: www.healthychildren.org/Yi/health-issues/conditions/chest-lungs/Pages/201 2-Qqtee-Upkvutdlejr.aspx The coronavirus situation is changing rapidly. Check [...] provider. Document Revised: 07/22/2020 Document Reviewed: 07/22/2020 [employer] Patient Education ?? 2020 [employer]. Emergency Awareness and Preventative Care STROKE [...] Assistance with quitting is available by contacting 8-313-RTDWNOW. This is a free resource providing counseling, support, and referral. Or you may contact your personal physician. [employer] Suicide Prevention Lifeline: The National Suicide Prevention [...] was given the opportunity to ask questions. Patient/Loading Machine Adjuster Name: Patient/Loading Machine Adjuster Signature: Relationship to Patient: Clinician/Hospital Loading Machine Adjuster Signature: Please Provide a Telephone Number Where You Can Be Reached: Is it Permissible To Leave a Message? Date: Electronically signed by [facility], [facility] Conversion Precinct Police Captain Yu at 11/21/2022 11:32 PM CDT documented in this encounter Plan of Treatment Not on file documented as of this encounter Visit Diagnoses Not on filedocumented in this encounter
--- OUTSIDE RECORDS SUMMARY | 2025-02-16 19:22 | XMS_ITS | Encounter Summary ---
Author Organization [employer] ([place], [place], [place], [place]) Address [address] [place] [address] Care Team Providers Care Proration Clerk Name Role Phone Unavailable Primary Care Provider Unavailabl e Encounter Details Date Type Department Care Team (Late st Contact Info) Description 04/11/2021 Transcribed Document [facility] [place] Family Medicine [facility] [place] [address] ProviderJuan Carlos MD [facility] [place] [address] Social History Tobacco Use Types [...] : 3 - Urgent Tracking Group : [facility] ED [facility] Harleen Brown RN - 04/11/2021 [...] caused by 2019 novel coronavirus (SNOMED CT :[id number] ) Name of Problem: Disease caused by 2019 novel coronavirus ; Recorder: SYSTEM, SYSTEM; Confirmation: Confirmed ; Classification: Medical ; Code: [id number] ; Last Updated: 04/07/2021 22:55 EDT ; Life Cycle Date: 04/07/2021 ; Life Cycle Status: Active ; Vocabulary: SNOMED CT ; Comments: 04/07/2021 22:55 - SYSTEM, SYSTEM Problem added by a rule: [id number]. Diagnoses(Active) Vaginal bleeding Date: 04/11/2021 ; Diagnosis Type: Reason For Visit ; Confirmation: Complaint of ; Clinical Dx: Vaginal bleeding ; Classification: Medical ; Clinical Service: Non-Specified ; Code: PNED ; Probability: 0 ; Diagnosis Code: [id number] ED Height and Weight Height Source : Measured Height Entry Format : [place] Height, Feet : 5 ft(Converted to: 152 cm, 60 Inch) Height, Inches : 7 Inch(Converted to: 0 ft 7 Inch, 17.78 cm) Clinical Height : 170.18 cm Weight Source, ED : Standing scale Weight Entry Format : [place] Weight, Pounds : 128 lb Clinical Dosing Weight : 58.18 kg Body Surface Area (BSA) : 1.67 m2 Body Mass Index : 20.1 kg/m2 [place] Body Weight (IBW) : 61.16 kg Harleen Brown RN - 04/11/2021 10:10 EDT Electronically signed by Brian Zayas Conversion Industrial Electrical Technician Cerner at 11/21/2022 11:41 PM CDT documented in this encounter Plan of Treatment Not on file documented as of this encounter Visit Diagnoses Not on filedocumented in this encounter
--- OUTSIDE RECORDS SUMMARY | 2025-02-16 19:22 | XMS_ITS | Encounter Summary ---
Author Organization [employer] ([place], [place], [place]) Address [address] [place] [address] Care Team Providers Care Composition Roll Maker And Cutter Name Role Phone Unavailable Primary Care Provider Unavailabl e Encounter Details Date Type Department Care Team (Late st Contact Info) Description 04/08/2021 Transcribed Document [facility] [place] Medicine [facility] [place] [address] ProviderJuan Carlos MD [address] [place] [address] Social History Tobacco Use [...]
--- OUTSIDE RECORDS SUMMARY | 2025-02-16 19:22 | XMS_ITS | Encounter Summary ---
Author Organization [employer] ([place], [place], [place], [place]) Address [address] [place] [address] Care Team Providers Care Fraternity Adviser Name Role Phone Unavailable Primary Care Provider Unavailabl e Encounter Details Date Type Department Care Team (Late st Contact Info) Description 04/10/2021 Transcribed Document [facility] Radiology [address] [place] [address] Herbie Srivastava MD [address] [place] [address] Dept. [place] [address] Social History Tobacco Use [...] AM EDT Electronically signed by Chana [facility] Conversion Section Hand Cerner at 11/21/2022 11:49 PM CDT documented in this encounter Plan of Treatment Not on file documented as of this encounter Visit Diagnoses Not on filedocumented in this encounter
[2025-02-16 19:23] VITALS: BMI 26.3
[2025-02-16 19:42] VITALS: BP 145/95; PULSE 94; RESP 17; TEMP 36.7; O2SAT 99; BMI 26.3
[2025-02-16 19:58] LABS: Fetal Membrane Rupture (Rapid) Negative (Negative)
== END 2025-02-16 20:22 | disposition home or self-care (01) ==
LOC: OBOUT 19:19 → OB 19:21
PROVIDERS: Visit Provider Obstetrics & Gynecology
DX: O42.913 Preterm premature rupture of membranes, unspecified as to length of time between rupture and onset of labor, third trimester (principal); Z3A.36 36 weeks gestation of pregnancy
CPT/HCPCS: 84112

== ENCOUNTER 2025-02-19 14:09 | Outpatient (CLI) | payer OTHER, SELFPAY ==
--- OUTSIDE RECORDS SUMMARY | 2025-02-19 14:15 | XMS_ITS | Clinical Summary ---
Author Organization [employer] [facility] Address [address] [place] [id number] Phone Care Team Providers Care Petroleum Laboratory Technician Name Role Phone Unavailable Unavailable Conditions or Problems No information available. Medications No information available. Medications Administered No information available. Allergies, Adverse Reactions, Alerts No information available. Results No information available. Plan of Care No information available. Procedures No information available. Vital Signs No information available. Immunizations No information available. Advance Directives No information available.
--- OUTSIDE RECORDS SUMMARY | 2025-02-19 14:16 | XMS_ITS | Clinical Summary ---
Author Organization [facility] Address [address] [place] [address] Care Team Providers Care Medical Assistant Internal Medicine Name Role Phone Krysten Burt MD Primary Care Provider [phone] Allergies No known active allergies Medications pseudoephedrine [...] (10/02/2021): Added automatically from request for surgery [id number] Immunizations Immunization Administration Dates Next Due Tdap [...] in a correction (including now)? No 03/27/2024 [place] Depression Scale Answer Date Recorded [place] Depression Scale Total 8 12/07/2021 The thought [...] 12/01/2023 11/30/2022, 11/30/2022, 07/15/2022, Additional history exists [id number] Vaccine ( - season) 2024 UKY- SDOH [...] EDT This test is performed by the [employer] m2000 instrument for Real Time PCR C. trachomatis and N. gonorrhea. This test is FDA approved for use with endocervical, vaginal, and urine specimens. This test is used for clinical purposes. It should not be regarded as invesigational or for research. The [facility] Clinical Microbiology Laboratory is certified under the Clinical Laboratory Improvement Amendments of 1988 (CLIA-88) as qualified to perform high complexity clinical laboratory testing. us Rhea Ramos MD LAB MICROBIOLOGY - GENERAL ORDERABLES Final Result [facility] [address] [place] [address] * Pap Test (11/30/2022 3:09 PM EDT) Case Report Cytology Case: [id number] Authorizing Provider: Rhea Ramos MD Collected: 11/30/2022 1509 Ordering Location: Medical Office Building Received: 11/30/2022 1617 Obstetrics and Gynecology First Screen: Shayy Gordon [...] results is suggested (please call Microbiology at [phone] for results). 12/06/2022 3:06 PM EDT [facility] [...] nal Result [facility] [address] [place] [address] * HIV 1 & 2 Antibody/Antigen Screen (04/30/2021 8:23 PM EDT) HIV 1 & 2 Antibody/Anti gen Screen Nonreactive Nonreactive 04/30/2021 8:23 PM EDT [facility] Blood Venous blood specimen / Unknown 04/30/2021 3:09 PM EDT Rhea Ramos MD LAB BLOOD ORDERABLES Final Result Performing Organization Address City/[facility]/ZIP Co de Phone Number [facility] [address] [place] [address] * Hepatitis C Antibody (04/30/2021 8:21 PM EDT) Pathologist [facility] Hepatitis C Antibody Negative Negative 04/30/2021 8:21 PM EDT [facility] Blood Venous blood specimen / Unknown 04/30/2021 3:09 PM EDT Rhea Ramos MD LAB BLOOD ORDERABLES Final Result Performing Organization Address [facility] Co de Phone Number [facility] [address] [place] [address] from Last 3 Months or Most Recently Relevant to Health Maintenance Insurance MEDICAID Advance Directives * Full Code (Latest Code Status on File) Date Activated Date Inactivated Comments 10/23/2021 12:34 PM 10/26/2021 4:44 PM Question Answer Comments Patient has decision-making capacity? Yes Care Teams Medical Assistant Internal Medicine Relationship Specialty Start Date End Date Krysten Burt MD [address] [facility] [address] [place] [address] PCP - General Adolescent Medicine 12/29/22
[2025-02-19 14:33] VITALS: BMI 26.7
--- NOTE | 2025-02-19 14:36 | US_ITS ---
PROCEDURE: US OB BIOPHYSICAL PROFILE CLINICAL INDICATION: Order COMPARISON: US US ABDOMEN LIMITED from 08/31/2024 US US OB TRANSVAGINAL from 10/03/2024 US US OB /MATERNAL DETAIL from 10/24/2024 US OB BIOPHYSICAL PROFILE from 01/11/2025 US OB BIOPHYSICAL PROFILE from 01/30/2025 US OB BIOPHYSICAL PROFILE from 02/11/2025 US OB BIOPHYSICAL PROFILE from 02/15/2025 FINDINGS: Transabdominal sonographic images of the uterus were obtained. From her established due date she is 37weeks 0 days. The following parameters are obtained: Viable Fetus in the cephalic presentation with an anterior placenta grade 2. The cervix measures 3.0 cm Measurements: heart Rate = 139bpm Amniotic fluid index: 10.91cm, MVP 3.9 cm Qualitative AFV:2 Breathing movements: 2 Gross Body Movements: 2 Tone: 2 Biophysical profile score: 8 No obvious anomalies evident.Kidneys, profile, stomach, bladder, four-chamber heart, three-vessel cord appear normal. IMPRESSION: 1. Viable fetus in the cephalic presentation with an anterior placenta grade 2. 2. The fluid is within normal limits with an amniotic fluid index 10.91 cm, MVP 3.9 cm. 3. Biophysical profile is 8/8 with good breathing movement and movement seen. 4. Limited anatomical scan appears normal. Dictated by: Ulices Gomez MD 02/19/2025 16:22 Ulices Gomez MD in OV 02/19/2025 16:22
[2025-02-19 14:37] VITALS: BMI 59.0
== END 2025-02-19 15:30 | disposition home or self-care (01) ==
LOC: OBOUT 14:12 → OB 14:15
PROVIDERS: Visit Provider Nurse Practitioner Obstetrics & Gynecology
DX: Z34.83 Encounter for supervision of other normal pregnancy, third trimester (principal); Z3A.37 37 weeks gestation of pregnancy
CPT/HCPCS: 59025; 76819; 99212; G0463

== ENCOUNTER 2025-02-22 13:35 | Outpatient (CLI) | payer OTHER, SELFPAY ==
--- OUTSIDE RECORDS SUMMARY | 2025-02-22 13:38 | XMS_ITS | Encounter Summary ---
Author Organization [employer] ([place], [place], [place], [place]) Address [address] [place] [address] Care Team Providers Care Drilling Field Operator Name Role Phone Unavailable Primary Care Provider Unavailabl e Encounter Details Date Type Department Care Team (Late st Contact Info) Description 04/07/2021 Transcribed Document [facility] [place] [address] [place] [address] ProviderJuan Carlos MD [address] [place], [place] [id number] Social History Tobacco Use Types Packs/Day Years [...] Historical ProviderMD - 04/07/2021 7:59 PM CDT [place] Suicide Severity Rating Scale (C-SSRS) Entered On: 04/08/2021 0:17 EDT Performed On: 04/08/2021 0:16 EDT by MARIANA ESTEVES RN [place] Suicide Severity Rating Scale (C-SSRS) CSSRS Past [...]
--- OUTSIDE RECORDS SUMMARY | 2025-02-22 13:38 | XMS_ITS | Encounter Summary ---
Author Organization [employer] ([place], [place], [place], [place]) Address [address] [place] [address] Care Team Providers Care Stretcher And Drier Name Role Phone Unavailable Primary Care Provider Unavailabl e Encounter Details Date Type Department Care Team (Late st Contact Info) Description 04/07/2021 Transcribed Document [place] Family Medicine [facility] [place] [address] ProviderJuan Carlos MD [address] [place] [address] Social History Tobacco Use Types [...] 11:58 PM CDT Electronically signed by Chana [facility] Conversion Pipeline Technician Cerner at 11/21/2022 11:36 PM CDT documented in this encounter Plan of Treatment Not on file documented as of this encounter Visit Diagnoses Not on filedocumented in this encounter
--- OUTSIDE RECORDS SUMMARY | 2025-02-22 13:38 | XMS_ITS | Encounter Summary ---
Author Organization [employer] ([place], [place], [place], [place]) Address [address] [place] [address] Care Team Providers Care Ax Survey Worker Name Role Phone Unavailable Primary Care Provider Unavailabl e Encounter Details Date Type Department Care Team (Late st Contact Info) Description 04/07/2021 Transcribed Document [facility] [place] [facility] [place] [address] ProviderJuan Carlos MD [address] [place] [address] Social History Tobacco Use Types Packs/Day [...] - Non - Urgent Tracking Group : [facility] [place] MARIANA ESTEVES RN - 04/07/2021 [...] PNED ; Probability: 0 ; Diagnosis Code: [id number] ED Height and Weight Height Source : Measured Height Entry Format : [place] Height, Feet : 5 ft(Converted to: 152 cm, 60 Inch) Height, Inches : 7 Inch(Converted to: 0 ft 7 Inch, 17.78 cm) Clinical Height : 170.18 cm Weight Source, ED : Standing scale Weight Entry Format : [place] Weight, Pounds : 128 lb Clinical Dosing Weight : 58.18 kg Body Surface Area (BSA) : 1.67 m2 Body Mass Index : 20.1 kg/m2 [place] Body Weight (IBW) : 61.16 kg MARIANA ESTEVES RN - 04/07/2021 21:15 EDT Electronically signed by Brian Zayas Conversion Assistant Professor Nurse Education Cerner at 11/21/2022 11:42 PM CDT documented in this encounter Plan of Treatment Not on file documented as of this encounter Visit Diagnoses Not on filedocumented in this encounter
--- OUTSIDE RECORDS SUMMARY | 2025-02-22 13:39 | XMS_ITS | Encounter Summary ---
Author Organization [employer] ([place], [place], [place], [place]) Address [address] [place] [address] Care Team Providers Care Correctional Substance Abuse Counselor Name Role Phone Unavailable Primary Care Provider Unavailabl e Encounter Details Date Type Department Care Team (Late st Contact Info) Description 04/07/2021 Transcribed Document [facility] [place] [address] [place] [address] ProviderJuan Carlos MD [address] [place] [id number] Social History Tobacco Use Types Packs/Day Years [...]
--- OUTSIDE RECORDS SUMMARY | 2025-02-22 13:39 | XMS_ITS | Encounter Summary ---
Author Organization [employer] ([place], [place], [place], [place]) Address [address] [place] [address] Care Team Providers Care Sales Service Manager Name Role Phone Unavailable Primary Care Provider Unavailabl e Encounter Details Date Type Department Care Team (Late st Contact Info) Description 04/07/2021 Transcribed Document [facility] [place] [facility] [place] [address] ProviderJuan Carlos MD [facility] [place] [id number] Social History Tobacco Use Types Packs/Day Years [...] Communication Barrier : None Primary Language : Serbian General Information Comment : seen by provider [...]
--- OUTSIDE RECORDS SUMMARY | 2025-02-22 13:40 | XMS_ITS | Referral Summary ---
Author Organization [employer] ([place], [place], [place], [place]) Address [address] [place] [address] Care Team Providers Care Assistant To The President Name Role Phone Unavailable Primary Care Provider [...]
--- OUTSIDE RECORDS SUMMARY | 2025-02-22 13:41 | XMS_ITS | Encounter Summary ---
Author Organization [employer] ([place], [place], [place], [place]) Address [address] [place] [address] Care Team Providers Care Screw Eye Assembler Name Role Phone Unavailable Primary Care Provider Unavailabl e Encounter Details Date Type Department Care Team (Late st Contact Info) Description 04/11/2021 Transcribed Document [facility] [place] [facility] [place] [address] ProviderJuan Carlos MD [facility] [place] [address] Social History Tobacco Use Types [...] Patient reports brownish-red vaginal spotting that is head grower than her menstrual period. This began yesterday and has continued today. She denies any abdominal pain or pelvic cramping. Also denies fever, nausea/vomiting, vaginal discharge. Patient tested positive for COVID-19 4 days ago and yesterday received the monoclonal antibody infusion. She currently follows with an ACTUARY CLERK at [facility], however is in the process of transitioning [...] April 11, 2021 14:10 EDT Encounter info: [id number], BEREKET Diaz [facility], Emergency Room, [...] discussed strict pelvic rest and follow-up with ACTUARY CLERK. Patient voices understanding and agreement with plan. [...] pelvic rest as discussed. Follow-up with your ACTUARY CLERK in 2 days for repeat assessment., Follow up with primary care provider Within 2 to 3 days Call for follow up appointment. Return to the ER for any new or worsening symptoms as discussed, especially fever, persistent pelvic pain, vaginal bleeding greater than 2 pads/hour. Recommend pelvic rest as discussed. Follow-up with your ACTUARY CLERK in 2 days for repeat assessment., Follow up with primary care provider Within 2 to 3 days Call for follow up appointment. Return to the ER for any new or worsening symptoms as discussed, especially fever, persistent pelvic pain, vaginal bleeding greater than 2 pads/hour. Recommend pelvic rest as discussed. Follow-up with your ACTUARY CLERK in 2 days for repeat assessment.. Counseled: Patient, Regarding diagnosis, Regarding diagnostic results, Regarding treatment plan, Patient indicated understanding of instructions. documented in this encounter Plan of Treatment Not on file documented as of this encounter Visit Diagnoses Not on filedocumented in this encounter
--- OUTSIDE RECORDS SUMMARY | 2025-02-22 13:41 | XMS_ITS | Encounter Summary ---
Author Organization [employer] ([place], [place], [place], [place]) Address [address] [place] [address] Care Team Providers Care Body Recall Instructor Name Role Phone Unavailable Primary Care Provider Unavailabl e Encounter Details Date Type Department Care Team (Late st Contact Info) Description 04/11/2021 Transcribed Document [facility] [place] Family Medicine [address] [place] [address] ProviderJuan Carlos MD [address] [place], [place] [id number] Social History Tobacco Use Types Packs/Day Years [...]
--- OUTSIDE RECORDS SUMMARY | 2025-02-22 13:41 | XMS_ITS | Clinical Summary ---
Author Organization [employer] ([place], [place], [place], [place]) Address [address] [place] [address] Care Team Providers Care Assistant Grocery Name Role Phone Unavailable Primary Care Provider [...]
--- OUTSIDE RECORDS SUMMARY | 2025-02-22 13:41 | XMS_ITS | Encounter Summary ---
Author Organization [employer] ([place], [place], [place], [place]) Address [address] [place] [address] Care Team Providers Care Visitor Services Coordinator Name Role Phone Unavailable Primary Care Provider Unavailabl e Encounter Details Date Type Department Care Team (Late st Contact Info) Description 04/11/2021 Transcribed Document [facility] [place] Family Medicine [address] [place] [address] ProviderJuan Carlos MD [address] [place], [place] [id number] Social History Tobacco Use Types Packs/Day Years [...] Historical ProviderMD - 04/11/2021 9:48 AM CDT [place] Suicide Severity Rating Scale (C-SSRS) Entered On: 04/11/2021 12:05 EDT Performed On: 04/11/2021 12:04 EDT by Lacey Chau RN [place] Suicide Severity Rating Scale (C-SSRS) CSSRS Past Month Wish to be : No CSSRS Past Month Suicidal Thoughts : No CSSRS Lifetime Suicide Behavior : No Suicide Severity Rating Score : 0 Suicide Severity Rating : No Additional Care Required at this time Lacey Chau RN - 04/11/2021 12:04 EDT Electronically signed by Chana [facility] Conversion Plate Maker Zinc Cerner at 11/21/2022 11:45 PM CDT documented in this encounter Plan of Treatment Not on file documented as of this encounter Visit Diagnoses Not on filedocumented in this encounter
--- OUTSIDE RECORDS SUMMARY | 2025-02-22 13:42 | XMS_ITS | Encounter Summary ---
Author Organization [employer] ([place], [place], [place], [place]) Address [address] [place] [address] Care Team Providers Care Biofuels Technology Manager Name Role Phone Unavailable Primary Care Provider Unavailabl e Encounter Details Date Type Department Care Team (Late st Contact Info) Description 04/11/2021 Transcribed Document [facility] [place] [address] [place] [address] ProviderJuan Carlos MD [address] [place], [place] [id number] Social History Tobacco Use Types Packs/Day Years [...]
--- OUTSIDE RECORDS SUMMARY | 2025-02-22 13:43 | XMS_ITS | Encounter Summary ---
Author Organization [employer] ([place], [place], [place], [place]) Address [address] [place] [address] Care Team Providers Care Scroll Saw Operator Name Role Phone Unavailable Primary Care Provider Unavailabl e Encounter Details Date Type Department Care Team (Late st Contact Info) Description 04/10/2021 Transcribed Document [facility] [place] Family Medicine [address] [place] [address] ProviderJuan Carlos MD [address] [place], [place] [address] Social History Tobacco Use Types Packs/Day Years [...]
--- OUTSIDE RECORDS SUMMARY | 2025-02-22 13:43 | XMS_ITS | Encounter Summary ---
Author Organization [employer] ([place], [place], [place], [place]) Address [address] [place] [address] Care Team Providers Care Denial Resolution Specialist Name Role Phone Unavailable Primary Care Provider Unavailabl e Encounter Details Date Type Department Care Team (Late st Contact Info) Description 04/10/2021 Transcribed Document [facility] Radiology [address] [place] [address] Herbie Méndez MD [address] [place] [address] Dept[place] [address] Social History Tobacco Use Types Packs/Day Years Used Date Smoking Tobacco: Never Assessed Comments Unknown Sex and Gender Information Value Date Recorded Sex Assigned at Female 02/02/2022 8:54 PM CDT Legal Sex Female 8:54 PM CDT Gender Identity Female 02/02/2022 8:54 PM CDT Sexual Orientation Not on file documented as of this encounter Miscellaneous Notes * Cerner Conversion Note - Herbei Méndez MD - 04/10/2021 6:53 AM EDT [...] 1-Time . Notes: spoke to multiple Ob button tufter, with recomendations, patient remains stable, US update [...] a clinic referral service , just dial: [phone] (WELL) Our experts will provide you with [...]
--- OUTSIDE RECORDS SUMMARY | 2025-02-22 13:43 | XMS_ITS | Encounter Summary ---
Author Organization [employer] ([place], [place], [place], [place]) Address [address] [place] [address] Care Team Providers Care Stevedoring Supervisor Name Role Phone Unavailable Primary Care Provider Unavailabl e Encounter Details Date Type Department Care Team (Late st Contact Info) Description 04/11/2021 Transcribed Document [facility] [place] Family Medicine [facility] [place] [address] ProviderJuan Carlos MD [address] [place] [address] Social History Tobacco Use [...] 12:12 PM CDT Electronically signed by Chana [facility] Conversion City Manager Yu at 11/21/2022 11:35 PM CDT documented in this encounter Plan of Treatment Not on file documented as of this encounter Visit Diagnoses Not on filedocumented in this encounter
--- OUTSIDE RECORDS SUMMARY | 2025-02-22 13:43 | XMS_ITS | Encounter Summary ---
Author Organization [employer] ([place], [place], [place], [place]) Address [address] [place] [address] Care Team Providers Care Electrician Station Assistant Name Role Phone Unavailable Primary Care Provider Unavailabl e Encounter Details Date Type Department Care Team (Late st Contact Info) Description 04/11/2021 Transcribed Document [facility] [place] Medicine [facility] [place] [address] ProviderJuan Carlos MD [address] [place] [address] Social History Tobacco Use Types [...]
--- OUTSIDE RECORDS SUMMARY | 2025-02-22 13:43 | XMS_ITS | Encounter Summary ---
Author Organization [employer] ([place], [place], [place], [place]) Address [address] [place] [address] Care Team Providers Care Baby Formula Worker Name Role Phone Unavailable Primary Care Provider Unavailabl e Encounter Details Date Type Department Care Team (Late st Contact Info) Description 04/10/2021 Transcribed Document [facility] [place] Medicine [facility] [place] [address] ProviderJuan Carlos MD [address] [place] [address] Social History Tobacco Use Types [...] Cavazos MD - 04/10/2021 8:46 AM CDT [place] [id number] LIBERTAD DE LEONNE :2000 Visit Time:04/10/2021 Your [...] or High Risk [phone] [address]: [address] [place] [id number]- [facility] (1) Follow Up with For a clinic referral service , just dial: [phone] (WELL) Our experts will provide you with [...] water are not available, use alcohol-based hand cat dog or other pet groomer. ??? Avoid touching your mouth, face, eyes, [...] pump parts after expressing milk. Follow the director of content marketing's instructions to clean and disinfect all pump [...] (CDC): www.cdc.gov/coronavirus/2019-ncov/ ??? World Health Organization (WHO): www.who.int/news-room/q-a-detail/b-i-jg-iojot-34-jerotczrd-zdmkojsbog-wyv-kgkp stfeeding ??? [place] [employer]nec[employer] (ACOG): www.acog.org/patient-resources/faqs//gifmhwsqbyw-epvxckqdp-xgm-breast feeding Questions to ask your health care [...] provider. Document Revised: 07/25/2020 Document Reviewed: 07/25/2020 [employer] Patient Education ?? 2020 [employer]. 10 Things You Can Do to Manage [...] clean your hands with an alcohol-based hand cat dog or other pet groomer that contains at least 60% alcohol. 8. [...] Reviewed: 07/10/2020 Elsevier Patient Education ?? 2020 [employer] Inc. Emergency Awareness and Preventative Care STROKE [...] Assistance with quitting is available by contacting 8-498-EVTONOW. This is a free resource providing counseling, support, and referral. Or you may contact your personal physician. [employer] Suicide Prevention Lifeline: The National Suicide Prevention [...] was given the opportunity to ask questions. Patient/Wood Cutter Name: Patient/Wood Cutter Signature: Relationship to Patient: Clinician/Hospital Wood Cutter Signature: Please Provide a Telephone Number Where You Can Be Reached: Is it Permissible To Leave a Message? Date: documented in this encounter Plan of Treatment Not on file documented as of this encounter Visit Diagnoses Not on filedocumented in this encounter
--- OUTSIDE RECORDS SUMMARY | 2025-02-22 13:43 | XMS_ITS | Encounter Summary ---
Author Organization [employer] ([place], [place], [place], [place]) Address [address] [place] [address] Care Team Providers Care State Assessed Properties Director Name Role Phone Unavailable Primary Care Provider Unavailabl e Encounter Details Date Type Department Care Team (Late st Contact Info) Description 04/10/2021 Transcribed Document [facility] [place] Family Medicine [facility] [place] [address] ProviderJuan Carlos MD [facility] [place] [address] Social History Tobacco Use Types [...] EDT DCP GENERIC CODE Tracking Group : [facility] Tracking Acuity : 3 - Urgent [...] caused by 2019 novel coronavirus (SNOMED CT :1266998320 ) Name of Problem: Disease caused by 2019 novel coronavirus ; Recorder: SYSTEM, SYSTEM; Confirmation: Confirmed ; Classification: Medical ; Code: [id number] ; Last Updated: 04/07/2021 22:55 EDT ; Life Cycle Date: 04/07/2021 ; Life Cycle Status: Active ; Vocabulary: SNOMED CT ; Comments: 04/07/2021 22:55 - SYSTEM, SYSTEM Problem added by a rule: [id number]. Diagnoses(Active) Medication administration Date: 04/10/2021 ; Diagnosis Type: Reason For Visit ; Confirmation: Complaint of ; Clinical Dx: Medication administration ; Classification: Medical ; Clinical Service: Emergency medicine ; Code: PNED ; Probability: 0 ; Diagnosis Code: [id number] ED Height and Weight Height Source : Measured Height Entry Format : [place] Height, Feet : 5 ft(Converted to: 152 cm, 60 Inch) Height, Inches : 7 Inch(Converted to: 0 ft 7 Inch, 17.78 cm) Clinical Height : 170.18 cm Weight Source, ED : Standing scale Weight Entry Format : [place] Weight, Pounds : 128 lb Clinical Dosing Weight : 58.18 kg Body Surface Area (BSA) : 1.67 m2 Body Mass Index : 20.1 kg/m2 [place] Body Weight (IBW) : 61.16 kg KIYA [...] EDT Electronically signed by Brian Zayas Conversion Ground Support Equipment Fitter Cerner at 11/21/2022 11:40 PM CDT documented in this encounter Plan of Treatment Not on file documented as of this encounter Visit Diagnoses Not on filedocumented in this encounter
--- OUTSIDE RECORDS SUMMARY | 2025-02-22 13:43 | XMS_ITS | Encounter Summary ---
Author Organization [employer] ([place], [place], [place], [place]) Address [address] [place] [address] Care Team Providers Care Talent Acquisition Coordinator Name Role Phone Unavailable Primary Care Provider Unavailabl e Encounter Details Date Type Department Care Team (Late st Contact Info) Description 04/11/2021 Transcribed Document [facility] [place] Family Medicine [facility] [place] [address] ProviderJuan Carlos MD [facility] [place] [address] Social History Tobacco Use Types [...] : 3 - Urgent Tracking Group : [facility] ED [facility] Harleen Brown RN - 04/11/2021 10:10 [...] caused by 2019 novel coronavirus (SNOMED CT :0484411874 ) Name of Problem: Disease caused by 2019 novel coronavirus ; Recorder: SYSTEM, SYSTEM; Confirmation: Confirmed ; Classification: Medical ; Code: [id number] ; Last Updated: 04/07/2021 22:55 EDT ; Life Cycle Date: 04/07/2021 ; Life Cycle Status: Active ; Vocabulary: SNOMED CT ; Comments: 04/07/2021 22:55 - SYSTEM, SYSTEM Problem added by a rule: [id number]. Diagnoses(Active) Vaginal bleeding Date: 04/11/2021 ; Diagnosis Type: Reason For Visit ; Confirmation: Complaint of ; Clinical Dx: Vaginal bleeding ; Classification: Medical ; Clinical Service: Non-Specified ; Code: PNED ; Probability: 0 ; Diagnosis Code: [id number] ED Height and Weight Height Source : Measured Height Entry Format : [place] Height, Feet : 5 ft(Converted to: 152 cm, 60 Inch) Height, Inches : 7 Inch(Converted to: 0 ft 7 Inch, 17.78 cm) Clinical Height : 170.18 cm Weight Source, ED : Standing scale Weight Entry Format : [place] Weight, Pounds : 128 lb Clinical Dosing Weight : 58.18 kg Body Surface Area (BSA) : 1.67 m2 Body Mass Index : 20.1 kg/m2 [place] Body Weight (IBW) : 61.16 kg Harleen Brown RN - 04/11/2021 10:10 EDT documented in this encounter Plan of Treatment Not on file documented as of this encounter Visit Diagnoses Not on filedocumented in this encounter
--- OUTSIDE RECORDS SUMMARY | 2025-02-22 13:43 | XMS_ITS | Encounter Summary ---
Author Organization [employer] ([place], [place], [place], [place]) Address [address] [place] [address] Care Team Providers Care Washer Machine Name Role Phone Unavailable Primary Care Provider Unavailabl e Encounter Details Date Type Department Care Team (Late st Contact Info) Description 04/11/2021 Transcribed Document [facility] [place] [facility] [place] [address] ProviderJuan Carlos MD [address] [place] [address] Social History Tobacco Use Types [...] Carlos ProviderMD - 04/11/2021 2:23 PM CDT [place] [id number] LIBERTAD WEBBNE :2000 Visit Time:04/11/2021 Your Visit [...] pelvic rest as discussed. Follow-up with your WHEEL INSPECTOR in 2 days for repeat assessment. Allergies [...] provider. Document Revised: 08/31/2018 Document Reviewed: 10/21/2017 [employer] Patient Education ?? 2020 [employer] Vaginal Bleeding During , First Trimester [...] this is safe. General instructions ??? Take lhbq-ifj-dausjky and prescription medicines only as told by [...] provider. Document Revised: 11/13/2019 Document Reviewed: 10/27/2017 [employer] Patient Education ?? 2020 [employer] Subchorionic Hematoma A subchorionic hematoma is [...] Reviewed: 09/20/2017 Elsevier Patient Education ?? 2020 [employer] Emergency Awareness and Preventative Care STROKE [...] Assistance with quitting is available by contacting 3-493-YDEZNOW. This is a free resource providing counseling, support, and referral. Or you may contact your personal physician. [place] Suicide Prevention Lifeline: The National Suicide Prevention [...] was given the opportunity to ask questions. Patient/Jack Prizer Name: Patient/Jack Prizer Signature: Relationship to Patient: Clinician/Hospital Jack Prizer Signature: Please Provide a Telephone Number Where You Can Be Reached: Is it Permissible To Leave a Message? Date: documented in this encounter Plan of Treatment Not on file documented as of this encounter Visit Diagnoses Not on filedocumented in this encounter
--- OUTSIDE RECORDS SUMMARY | 2025-02-22 13:43 | XMS_ITS | Encounter Summary ---
Author Organization [employer] ([place], [place], [place], [place]) Address [address] [place] [address] Care Team Providers Care Mixer Foam Rubber Name Role Phone Unavailable Primary Care Provider Unavailabl e Encounter Details Date Type Department Care Team (Late st Contact Info) Description 04/10/2021 Transcribed Document [facility] [place] Family Medicine [facility] [place] [address] ProviderJuan Carlos MD [address] [place], [place] [id number] Social History Tobacco Use Types Packs/Day Years [...] Historical ProviderMD - 04/10/2021 5:[address] [facility] Suicide Severity Rating Scale (C-SSRS) Entered On: 04/10/2021 6:47 EDT Performed On: 04/10/2021 6:46 EDT by Nasreen Aldridge RN-PATIENT CARE BEDSIDE NON-EXEMPT [facility] Suicide Severity Rating Scale (C-SSRS) CSSRS Past [...]
--- OUTSIDE RECORDS SUMMARY | 2025-02-22 13:43 | XMS_ITS | Encounter Summary ---
Author Organization [employer] ([place], [place], [place], [place]) Address [address] [place] [address] Care Team Providers Care Rn Social Work Name Role Phone Unavailable Primary Care Provider Unavailabl e Encounter Details Date Type Department Care Team (Late st Contact Info) Description 04/10/2021 Transcribed Document [facility] Radiology [address] [place] [address] Herbie Srivastava MD [address] [place] [address] Dept. [place] [address] Social History Tobacco Use Types [...] 9:09 AM EDT Electronically signed by Chana [facility] Conversion General Agent Cerner at 11/21/2022 11:49 PM CDT documented in this encounter Plan of Treatment Not on file documented as of this encounter Visit Diagnoses Not on filedocumented in this encounter
--- OUTSIDE RECORDS SUMMARY | 2025-02-22 13:43 | XMS_ITS | Encounter Summary ---
Author Organization [employer] ([place], [place], [place], [place]) Address [address] [place] [address] Care Team Providers Care Polisher Sand Name Role Phone Unavailable Primary Care Provider Unavailabl e Encounter Details Date Type Department Care Team (Late st Contact Info) Description 04/11/2021 Transcribed Document [facility] [place] Family Medicine [facility] [place] [address] ProviderJuan Carlos MD [facility] [place] [address] Social History Tobacco Use [...] 04/11/2021 14:35 EDT Electronically signed by Chana [facility] Conversion Filling Hauler Cerner at 11/21/2022 11:36 PM CDT documented in this encounter Plan of Treatment Not on file documented as of this encounter Visit Diagnoses Not on filedocumented in this encounter
--- OUTSIDE RECORDS SUMMARY | 2025-02-22 13:43 | XMS_ITS | Encounter Summary ---
Author Organization [employer] ([place], [place], [place], [place]) Address [address] [place] [address] Care Team Providers Care Barrel Waterer Name Role Phone Unavailable Primary Care Provider Unavailabl e Encounter Details Date Type Department Care Team (Late st Contact Info) Description 04/10/2021 Transcribed Document [facility] [place] Medicine [facility] [place] [address] ProviderJuan Carlos MD [facility] [place] [address] Social History Tobacco Use Types [...]
--- OUTSIDE RECORDS SUMMARY | 2025-02-22 13:43 | XMS_ITS | Clinical Summary ---
Author Organization [employer] [facility] Address [address] [place] [phone] Phone Care Team Providers Care Surveillance Sensor Operator Name Role Phone Unavailable Unavailable Conditions or Problems No information available. Medications No information available. Medications Administered No information available. Allergies, Adverse Reactions, Alerts No information available. Results No information available. Plan of Care No information available. Procedures No information available. Vital Signs No information available. Immunizations No information available. Advance Directives No information available.
--- OUTSIDE RECORDS SUMMARY | 2025-02-22 13:44 | XMS_ITS | Clinical Summary ---
Author Organization [facility] Address [address] [place] [address] Care Team Providers Care Boss Miner Name Role Phone Provider, No Known Primary Care Provider Unavail able Allergies No known active allergies Medications Aspirin Low Dose 81 MG EC tablet Take 1 tablet by mouth Every 12 (Twelve) Hours. 5 Active ondansetron ODT (ZOFRAN-ODT) 4 MG disintegrating tablet Take 1 tablet by mouth As Needed. 5 Active vitamin (, CLASSIC, vitamin) tablet Take by mouth Daily. Active Active Problems Problem Noted Date Diagnosed Date Subchorionic hematoma, antepartum 10/30/2024 Assessment & Plan (10/30/2024 1:02 PM EDT): Patient referred for abnormal ultrasound in her primary OB office. A sonolucent area 12 cm x 2.5 cm was seen in thought to be hematoma. Patient reports no vaginal bleeding. She did have a prior for twins. 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 Ultrasound today demonstrates a normally grown fetus with no abnormality seen. A large dense sonolucent clear area is seen just adjacent to the anterior placenta. There are no abnormalities seen. There were no markers for trisomy seen. Amniotic fluid volume and cervical length were normal. Placental abnormality seen today appears more like placental cyst or placental bucio. With a normally grown fetus this is unlikely to be clinically significant. We will rescan the patient again in 4 weeks time to ensure that the fetus continues to grow well and that there is no evidence of hematoma. 10/30/2024 Previous delivery affecting 0 10/30/2024 Estimated Date of Delivery Comme nts Yes 03/12/2025 Based on Patient Reported Encounters Date Type Department Care Team Description 12/12/2024 11:15 AM EDT Office Visit [facility] [address] [facility] [address] [place] [address] Yee Purdy MD Previous delivery affecting (Primary Dx) 12/12/2024 11:15 AM EDT - 12/12/2024 11:59 PM EDT Hospital Encounter [facility] [address] [place] [address] Nav Hassan MD Subchorionic hematoma, antepartum, single or unspecified fetus; Previous delivery affecting ; , unspecified gestational age Discharge Disposition: Home or Self Care 12/12/2024 Travel from Last 3 Months Social History Tobacco Use Types Packs/Day Years Used Date Smoking Tobacco: Never Smokeless Tobacco: Never Tobacco Cessation:Counseling Given: Not Answered Alcohol Use Standard Drinks/Week Comments Not Currently 0 (1 standard drink = 0.6 oz pur e alcohol) Estimated Date of Delivery Comme nts Yes 03/12/2025 Based on Patient Reported Sex and Gender Information Value Date Recorded Sex Assigned at Not on file Legal Sex Female 9:25 AM EDT Gender Identity Not on file Sexual Orientation Not on file Last Filed Vital Signs Vital Sign Reading Time Taken Comments Blood Pressure 108/70 12/12/2024 11:39 AM EDT Pulse - - Temperature - - Respiratory Rate - - Oxygen Saturation - - Inhaled Oxygen Concentration - - Weight 69.4 kg (153 lb) 12/12/2024 11:39 AM EDT Height 170.2 cm (5' 7 ) 10/30/2024 12:44 PM EDT Body Mass Index 23.96 10/30/2024 12:44 PM EDT Plan of Treatment Health Maintenance Due Date Last Done Comments Annual Gynecologic Pelvic an d Breast Exam 2001 HPV VACCINES (2 - 3-dose series) 03/28/2018 02/29/20 18 MENINGOCOCCAL B VACCINE (2 o f 2 - Bexsero SCDM 2-dose series) 08/31/2018 02/28/2018 PAP SMEAR 2022 COVID-19 Vaccine (1 - 2023-2 5 season) 2024 ANNUAL PHYSICAL 10/30/2024 CHLAMYDIA SCREENING 10/30/2024 11/30/2022, 03/29/2020, 03/29/2020 INFLUENZA VACCINE 05/08/2025 05/09/2013, , 08/13/2008, Additional history exists TDAP/TD VACCINES (3 - Td or Tdap) 08/20/2031 022, 04/04/2013 Pneumococcal Vaccine 0-49 Completed 2008, 01/03/2003, 06/21/2002, Additional history exists HEPATITIS C SCREENING Completed 04/30/2021, 021 RSV Vaccine - Adults (No Dos es Required) Completed Procedures Procedure Name Priority Date/Time Associated Diagnosis Comments [facility] Routine 12/12/2024 11:54 AM EDT Subchorionic hematoma, antepartum, single or unspecified fetus Previous delivery affecting , unspecified gestational age from Last 3 Months Results * [facility] (12/12/2024 11:54 AM EDT) Anatomical Region Laterality Modality Ultrasound 12/12/2024 11:4 9 AM EDT Narrative 12/15/2024 9:28 PM EDT PAT NAME: [facility] REC#: [id number] DA: [id number] PAT GEND: F PAT TYPE: O EXAM HUA: [id number] REF PHYS CARLOS MCCLELLAN Comparison Studies The findings of this study are compared to the prior ultrasound study dated 10/30/24 Patient Status Outpatient Indication ======== Follow up placental bucio. Previous c/s x 1. Maternal Assessment Height 170 cm Height (ft) 5 ft Height (in) 7 in Weight 69 kg Weight (lb) 153 lb BMI 24.01 kg/m Method ======= Transabdominal ultrasound examination. View: Adequate view ========= Smith . Number of fetuses: 1 Dating ====== Method of dating: based on stated ROBB GA by prior assessment 27 w + 1 d ROBB by prior assessment: 03/12/2025 Ultrasound examination on: 12/12/2024 GA by U/S based upon: AC, BPD, Femur, HC GA by U/S 27 w + 3 d ROBB by U/S: 03/10/2025 Previous dating: based on stated ROBB, selected on 10/30/2024 Agreed ROBB of previous datin03/12/2025 Assigned: based on stated ROBB, selected on 12/12/2024 Assigned GA 27 w + 1 d Assigned ROBB: 03/12/2025 length 280 d Biometry Standard BPD 70.1 mm 28w 1d 73% Hadlock OFD 91.1 mm 29w 3d 96% Lalitha HC 260.1 mm 28w 2d 60% Hadlock Cerebellum tr 33.0 mm 28w 0d 90% Hill AC 219.8 mm 26w 3d 21% Hadlock Femur 50.1 mm 27w 0d 29% Hadlock Humerus 46.9 mm 27w 5d 60% Lalitha HC / AC 1.18 EFW 997 g 26w 4d 29% Hadlock EFW (lb) 2 lb EFW (oz) 3 oz EFW by: Hadlock ([id number]-FL) Extended Cav. septi pel. tr 4.8 mm CM 6.1 mm 35% Nicolaides Head / Face / Neck Cephalic index 0.77 31% Nicolaides Extremities / Bony Struc FL / BPD 0.71 FL / HC 0.19 FL / AC 0.23 Other Structures FHR 160 bpm General Evaluation Cardiac activity present. FHR 160 bpm. movements present. Presentation breech. Placenta Placental site: anterior. Placental bucio measuring 9.2 x 1.1 cm. Umbilical cord Cord vessels: 3 vessel cord. Amniotic fluid Amount of AF: normal. MVP 5.5 cm. JOSE 16.2 cm. Q1 3.4 cm, Q2 5.3 cm, Q3 5.5 cm, Q4 2.0 cm. Anatomy Cranium: Normal Cavum septi pellucidi: Normal Cerebellum: Normal Cisterna magna: Normal Head / Neck Rt lateral ventricle: Normal Lt lateral ventricle: Normal Lips: Normal Profile: Normal Nose: Normal 4-chamber view: Appears normal RVOT view: Normal LVOT view: Normal Heart / Thorax 3-vessel view: Normal 5-nclxva-txwnktc view: normal Stomach: Appears normal Kidneys: Appears normal Bladder: Appears normal Gender: female Wants to know gender: yes Maternal Structures Uterus / Cervix Cervical length 39.1 mm Doppler Arterial Umbilical A PI 1.03 51% Bailey Umbilical A RI 0.66 45% Bailey Umbilical A PS 27.85 cm/s <1% Ebbing Umbilical A ED 9.36 cm/s Umbilical A TAmax 18.00 cm/s <1% Ebbing Umbilical A MD 9.28 cm/s Umbilical A S / D 2.98 41% Bailey Umbilical A HR 164 bpm Impression Today's exam reveals a SIUP in breech presentation with biometry consistent with dates. Limited anatomic survey appears normal. The JOSE is normal. Placenta is anterior with a stable appearing placental bucio along the surface of the placenta. Recommendation Follow up at your discretion Coding ======= Description: 92663-63 Follow Up Director Of Institutional Research: Isabel Mckay RDMS Physician: Yee Purdy MD, FACOG Electronically signed by: Yee Purdy MD, FACOG at: 21:28 Procedure Note Yee Purdy MD - 12/15/2024 PAT NAME: [facility] REC#: [id number] DA: 2000 PAT GEND: F PAT TYPE: O EXAM HUA: [id number] REF PHYS CARLOS MCCLELLAN Comparison Studies The findings of this study are compared to the prior ultrasound studydated 10/30/24 Patient Status Outpatient Indication ======== Follow up placental bucio. Previous c/s x 1. Maternal Assessment Tburli427 cm Height (ft)5 ft Height (in)7 in Qzudjq69 kg Weight (lb)153 lb BMI24.01 kg/m Method ======= Transabdominal ultrasound examination. View: Adequate view ========= Smith . Number of fetuses: 1 Dating ====== Method of dating:based on stated ROBB GA by prior [id number] w + 1 d ROBB by prior assessment:03/12/2025 Ultrasound examination on:12/12/2024 GA by U/S based upon:AC, BPD, Femur, HC GA by U/S27 w + 3 d ROBB by U/S:03/10/2025 Previous dating:based on stated ROBB, selected on 10/30/2024 Agreed ROBB of previous datin03/12/2025 Assigned:based on stated ROBB, selected on 12/12/2024 Assigned GA27 w + 1 d Assigned ROBB:03/12/2025 d Biometry Standard BPD70.1 mm 28w 1d 73% Hadlock OFD91.1 mm 29w 3d 96% Lalitha HC260.1 mm 28w 2d 60% Hadlock Cerebellum tr33.0 mm 28w 0d 90% Hill AC219.8 mm 26w 3d 21% Hadlock Femur50.1 mm 27w 0d 29% Hadlock Cfvjclt84.9 mm 27w 5d 60% Lalitha HC / AC1.18 THG538 g 26w 4d 29% Hadlock EFW (lb)2 lb EFW (oz)3 oz EFW by:Hadlock (QKL-SO-QI-FL) Extended Cav. septi pel. tr4.8 mm CM6.1 mm 35% Nicolaides Head / Face / Neck Cephalic index0.77 31% Nicolaides Extremities / Bony Struc FL / BPD0.71 FL / HC0.19 FL / AC0.23 Other Structures MOA309 bpm General Evaluation Cardiac activity present. FHR 160 bpm. movements present. Presentation breech. Placenta Placental site: anterior. Placental bucio measuring 9.2 x 1.1cm. Umbilical cord Cord vessels: 3 vessel cord. Amniotic fluid Amount of AF: normal. MVP 5.5 cm. JOSE 16.2 cm. Q1 3.4 cm,Q2 5.3 cm, Q3 5.5 cm, Q4 2.0 cm. Anatomy Cranium:Normal Cavum septi pellucidi:Normal Cerebellum:Normal Cisterna magna:Normal Head / Neck Rt lateral ventricle:Normal Lt lateral ventricle:Normal Lips:Normal Profile:Normal Nose:Normal 4-chamber view:Appears normal RVOT view:Normal LVOT view:Normal Heart / Thorax 3-vessel view:Normal 6-okbgrg-gnyloym view:normal Stomach:Appears normal Kidneys:Appears normal Bladder:Appears normal Gender:female Wants to know gender:yes Maternal Structures Uterus / Cervix Cervical railpx80.1 mm Doppler Arterial Umbilical A PI1.03 51% Bailey Umbilical A RI0.66 45% Bailey Umbilical A PS27.85 cm/s <1% Ebbing Umbilical A ED9.36 cm/s Umbilical A TAmax18.00 cm/s <1% Ebbing Umbilical A MD9.28 cm/s Umbilical A S / D2.98 41% Bailey Umbilical A HR164 bpm Impression Today's exam reveals a SIUP in breech presentation with biometryconsistent with dates. Limited anatomic survey appears normal. TheAFI is normal. Placenta is anterior with a stable appearing placental bucio along the surface ofthe placenta. Recommendation Follow up at your discretion Coding ======= Description:[id number] Follow Up Director Of Institutional Research: Isabel Mckay RDCO Physician: eYe Purdy MD, FACOG Electronically signed by: Yee Purdy MD, FACOG at: 1021:28 us Nav Hassan MD IMG US ORDERABLES Final Re sult from Last 3 Months Insurance [facility] Care Teams Boss Miner Relationship Specialty Start Date End Date Provider, No Known [facility] [place] [address] PCP - General 10/26/24
--- OUTSIDE RECORDS SUMMARY | 2025-02-22 13:44 | XMS_ITS | Encounter Summary ---
Author Organization [employer] ([place], [place], [place], [place]) Address [address] [place] [address] Care Team Providers Care Executive Communications Manager Name Role Phone Unavailable Primary Care Provider Unavailabl e Encounter Details Date Type Department Care Team (Late st Contact Info) Description 04/08/2021 Transcribed Document [facility] [place] [facility] [place] [address] ProviderJuan Carlos MD [facility] [place] [id number] Social History Tobacco Use Types Packs/Day Years [...] 04/08/2021 0:17 EDT Electronically signed by Chana [facility] Conversion Childcare Director Cerner at 11/21/2022 11:44 PM CDT documented in this encounter Plan of Treatment Not on file documented as of this encounter Visit Diagnoses Not on filedocumented in this encounter
--- OUTSIDE RECORDS SUMMARY | 2025-02-22 13:44 | XMS_ITS | Encounter Summary ---
Author Organization [employer] ([place], [place], [place], [place]) Address [address] [place] [address] Care Team Providers Care Grill Associate Name Role Phone Unavailable Primary Care Provider Unavailabl e Encounter Details Date Type Department Care Team (Late st Contact Info) Description 04/08/2021 Transcribed Document [facility] [place] [facility] [place] [address] ProviderJuan Carlos MD [address] [place] [address] Social History Tobacco Use Types [...] Carlos ProviderMD - 04/08/2021 12:05 AM CDT [place] [id number] LIBERTAD WEBBNE :2000 Visit Time:04/07/2021 Your Visit [...] take Tylenol as needed. Follow-up with your [facility]. Allergies No Known Medication Allergies Immunizations This [...] areas. Get rest and stay hydrated. Take haxa-nff-fdkihpr medicines, such as acetaminophen, to help you [...] provider. Document Revised: 07/10/2020 Document Reviewed: 07/10/2020 [employer] Patient Education ?? 2020 [employer]Does Inc. COVID-19: How to Protect Yourself and Others Know how it spreads ??? There is currently no vaccine to prevent coronavirus disease 2019 (COVID-19). ??? The best way to prevent illness is to avoid being exposed to this virus. ??? The virus is thought to spread mainly from dpeoom-yi-rjxony. ? Between people who are in close [...] are not readily available, use a hand meat processing center manager that contains at least 60% alcohol. Cover [...] are at higher risk of getting very sick.www.cdc.gov/coronavirus/2019-ncov/yuir-utewv-qyxmklwjggl/sesqfm-hu-bauxcs -risk.html Cover your mouth and nose with [...] available, clean your hands with a hand meat processing center manager that contains at least 60% alcohol. Clean and disinfect ??? Clean AND disinfect frequently touched surfaces daily. This includes tables, doorknobs, light switches, countertops, handles, desks, phones, keyboards, toilets, faucets, and sinks. www.cdc.gov/coronavirus/2019-ncov/dyqkurx-kjpqjwq-cpzs/owqplqqrgkef-jhzy-ypvy. html ??? If surfaces are dirty, clean [...] Reviewed: 02/14/2020 Elsevier Patient Education ?? 2020 Look.io. COVID-19 Frequently Asked Questions COVID-19 (coronavirus disease) [...] the coronavirus come from? In July 2019, [place] told the World Health Organization (WHO) about several cases of lung disease (human respiratory illness). These cases were linked to an open seafood and livestock market in the [facility]. The link to the seafood and [...] and virus naming ??? World Health Organization: www.who.int/emergencies/diseases/nmtim-yvstwqqzawj-9437/technical-guidance Who is at risk for complications from [...] water are not available, use alcohol-based hand meat processing center manager. ??? Avoid touching your face, mouth, nose, [...] (CDC): www.cdc.gov/coronavirus/2019-ncov/travelers ??? World Health Organization (WHO): www.who.int/emergencies/diseases/zflzx-sjsayhvikti-0519/travel-advice What should I do if I am sick? General instructions to stop the spread of infection ??? Wash your hands often with soap and water for at least 20 seconds. If soap and water are not available, use alcohol-based hand meat processing center manager. ??? Cough or sneeze into a tissue, [...] in hot, soapy water or use a helper electrical. Air-dry your dishes. ??? Wash laundry in [...] Organization (WHO) ??? Information and news updates: www.who.int/emergencies/diseases/ngohp-utwcpxjiksl-5348 ??? Coronavirus health topic: www.who.int/health-topics/coronavirus ??? Questions and answers on COVID-19: www.who.int/news-room/q-a-detail/z-i-lbifbxwyfrlfe ??? Global tracker: [employer]Cast.[employer] [place] Academy of Pediatrics (AAP) ??? Information for families: www.healthychildren.org/Wolof/health-issues/conditions/chest-lungs/Pages/201 1-Rglxx-Qhjgrdkjgdh.aspx The coronavirus situation is changing rapidly. Check [...] provider. Document Revised: 07/22/2020 Document Reviewed: 07/22/2020 [employer]Does Patient Education ?? 2020 Send[employer]vier Inc. Emergency Awareness and Preventative Care STROKE [...] Assistance with quitting is available by contacting 7-280-RAMKNOW. This is a free resource providing counseling, support, and referral. Or you may contact your personal physician. SurroundsMe Suicide Prevention Lifeline: The National Suicide Prevention [...] was given the opportunity to ask questions. Patient/Safety And Security Manager Name: Patient/Safety And Security Manager Signature: Relationship to Patient: Clinician/Hospital Safety And Security Manager Signature: Please Provide a Telephone Number Where You Can Be Reached: Is it Permissible To Leave a Message? Date: Electronically signed by [facility], [facility] Conversion Assistant Controller Yu at 11/21/2022 11:32 PM CDT documented in this encounter Plan of Treatment Not on file documented as of this encounter Visit Diagnoses Not on filedocumented in this encounter
--- OUTSIDE RECORDS SUMMARY | 2025-02-22 13:44 | XMS_ITS | Encounter Summary ---
Author Organization [employer] ([place], [place], [place], [place]) Address [address] [place] [address] Care Team Providers Care Motel Clerk Name Role Phone Unavailable Primary Care Provider Unavailabl e Encounter Details Date Type Department Care Team (Late st Contact Info) Description 04/10/2021 Transcribed Document [facility] [place] [facility] [place] [address] ProviderJuan Carlos MD [facility] [place], [place] [id number] Social History Tobacco Use Types Packs/Day Years [...] Communication Barrier : None Primary Language : Chinese Any Spiritual/Cultural Needs or Requests : No [...]
--- OUTSIDE RECORDS SUMMARY | 2025-02-22 13:44 | XMS_ITS | Clinical Summary ---
Author Organization [facility] Address [address] [place] [address] Care Team Providers Care Marketing Strategy Lead Name Role Phone Krysten Burt MD Primary Care Provider [phone] Allergies No known active allergies Medications pseudoephedrine [...] (10/02/2021): Added automatically from request for surgery [id number] Immunizations Immunization Administration Dates Next Due Tdap [...] place to sleep or slept in a group home (including now)? No 03/27/2024 Masterson Depression Scale Answer Date Recorded Masterson Depression Scale Total 8 12/07/2021 The thought [...] 12/01/2023 11/30/2022, 11/30/2022, 07/15/2022, Additional history exists SMN-YQFTL-21 Vaccine ( - season) 2024 UKY- SDOH [...] Detected Not Detected 12/02/2022 9:37 AM EDT [facility] Swab Endocervical structure / Unknown Non-blood Collection / Unknown 11/30/2022 3:09 PM EDT 11/30/2022 4:07 PM EDT Narrative [facility] - 12/02/2022 9:37 AM EDT This test is performed by the [employer] m2000 instrument for Real Time PCR C. trachomatis and N. gonorrhea. This test is FDA approved for use with endocervical, vaginal, and urine specimens. This test is used for clinical purposes. It should not be regarded as invesigational or for research. The [facility] Clinical Microbiology Laboratory is certified under the Clinical Laboratory Improvement Amendments of 1988 (CLIA-88) as qualified to perform high complexity clinical laboratory testing. us Rhea Ramos MD LAB MICROBIOLOGY - GENERAL ORDERABLES Final Result [facility] [address] [place] [address] * Pap Test (11/30/2022 3:09 PM EDT) Case Report Cytology Case: [id number] Authorizing Provider: Rhea Ramos MD Collected: 11/30/2022 1509 Ordering Location: Medical Office Building Received: 11/30/2022 1613 Obstetrics and Gynecology First Screen: Shayy Gordon Specimen: ThinPrep Pap Test, Liquid-Based Cervical/Vaginal, CERVICAL/VAGINAL 12/06/2022 3:06 PM EDT [facility] Interpretation NEGATIVE FOR INTRAEPITHELIAL LESION OR MALIGNANCY 12/06/2022 3:06 PM EDT [facility] at 1506 EDT Specimen Adequacy Satisfactory for evaluation; endocervical/villanueva sformation zone component present. Slide imaged by the ThinPrep Imaging system and selected 22 corado reviewed then full manual screening. 12/06/2022 3:06 PM EDT [facility] Cervical cytology is a screening [...] results is suggested (please call Microbiology at [phone] for results). 12/06/2022 3:06 PM EDT [facility] Menstrual Status Cyclic 12/07/19 3:06 PM EDT [facility] Contraceptive History Not Applicable 12/06/2022 3:06 PM EDT [facility] Screening Type Routine Screen 2022 3:06 PM EDT [facility] High Risk? No 12/06/2022 3:06 PM EDT [facility] HPV Testing Requested? No HPV Testing Requested 12/06/2022 3:06 PM EDT [facility] Previous Cancer History No 12/06/2022 3:06 PM EDT [facility] Clinical Information R10.2 - Pelvic and perineal pain [ICD-10-CM] 12/06/2022 3:06 PM EDT [facility] Last Menstrual Period 10/25/2022 12/06/2022 3:06 PM EDT [facility] Swab Vaginal and cervical cytologic material / Unknown Non-blood Collection / Unknown 11/30/2022 3:09 PM EDT 11/30/2022 4:15 PM EDT us Rhea Ramos MD LAB CYTOLOGY ORDERABLES Fi nal Result [facility] [address] [place] [address] * HIV 1 & 2 Antibody/Antigen Screen (04/30/2021 8:23 PM EDT) HIV 1 & 2 Antibody/Anti gen Screen Nonreactive Nonreactive 04/30/2021 8:23 PM EDT [facility] Blood Venous blood specimen / Unknown 04/30/2021 3:09 PM EDT Rhea Ramos MD LAB BLOOD ORDERABLES Final Result Performing Organization Address City/[facility]/ZIP Co de Phone Number [facility] [address] [place] [address] * Hepatitis C Antibody (04/30/2021 8:21 PM EDT) Pathologist [facility] Hepatitis C Antibody Negative Negative 04/30/2021 8:21 PM EDT [facility] Blood Venous blood specimen / Unknown 04/30/2021 3:09 PM EDT Rhea Ramos MD LAB BLOOD ORDERABLES Final Result Performing Organization Address [facility] Co de Phone Number [facility] [address] [place] [address] from Last 3 Months or Most Recently Relevant to Health Maintenance Insurance MEDICAID Advance Directives * Full Code (Latest Code Status on File) Date Activated Date Inactivated Comments 10/23/2021 12:34 PM 10/26/2021 4:44 PM Question Answer Comments Patient has decision-making capacity? Yes Care Teams Marketing Strategy Lead Relationship Specialty Start Date End Date Krysten Burt MD [address] [facility] [address] [place] [address] PCP - General Adolescent Medicine 12/29/22
--- OUTSIDE RECORDS SUMMARY | 2025-02-22 13:44 | XMS_ITS | Encounter Summary ---
Author Organization [employer] ([place], [place], [place], [place]) Address [address] [place] [address] Care Team Providers Care Counter Person Name Role Phone Unavailable Primary Care Provider Unavailabl e Encounter Details Date Type Department Care Team (Late st Contact Info) Description 04/08/2021 Transcribed Document [facility] [place] Medicine [facility] [place] [address] ProviderJuan Carlos MD [address] [place] [address] Social History Tobacco Use [...]
--- OUTSIDE RECORDS SUMMARY | 2025-02-22 13:44 | XMS_ITS | Encounter Summary ---
Author Organization [employer] ([place], [place], [place], [place]) Address [address] [place] [address] Care Team Providers Care Supply Clerk Name Role Phone Unavailable Primary Care Provider Unavailabl e Encounter Details Date Type Department Care Team (Late st Contact Info) Description 04/10/2021 Transcribed Document [facility] [place] [facility] [place] [address] ProviderJuan Carlos MD [address] [place] [address] Social History Tobacco Use Types [...] Cavazos MD - 04/10/2021 8:45 AM CDT [place] [id number] LIBERTAD DE LEONNE :2000 Visit Time:04/10/2021 Your [...] or High Risk [phone] Where: [address] [place] [id number]- [facility] (1) Follow Up with For a clinic referral service , just dial: [phone] (WELL) Our experts will provide you with [...] water are not available, use alcohol-based hand professor of fine art. ??? Avoid touching your mouth, face, eyes, [...] pump parts after expressing milk. Follow the cpc's instructions to clean and disinfect all pump [...] (CDC): www.cdc.gov/coronavirus/2019-ncov/ ??? World Health Organization (WHO): www.who.int/news-room/q-a-detail/n-n-bg-wadsx-08-uatmdrucf-knugwpuadk-sqi-xtdb stfeeding ??? [place] [employer]nec[employer] (ACOG): www.acog.org/patient-resources/faqs//icjzkpmylct-pcsskoioe-phb-breast feeding Questions to ask your health care [...] provider. Document Revised: 07/25/2020 Document Reviewed: 07/25/2020 MPV Patient Education ?? 2020 [employer]. 10 Things You Can Do to Manage [...] clean your hands with an alcohol-based hand professor of fine art that contains at least 60% alcohol. 8. [...] Reviewed: 07/10/2020 Elsevier Patient Education ?? 2020 MPV Inc. Emergency Awareness and Preventative Care STROKE [...] Assistance with quitting is available by contacting 7-094-ESPANOW. This is a free resource providing counseling, support, and referral. Or you may contact your personal physician. [employer] Suicide Prevention Lifeline: The National Suicide Prevention [...] was given the opportunity to ask questions. Patient/Sweeper Brush Maker Machine Name: Patient/Sweeper Brush Maker Machine Signature: Relationship to Patient: Clinician/Hospital Sweeper Brush Maker Machine Signature: Please Provide a Telephone Number Where You Can Be Reached: Is it Permissible To Leave a Message? Date: documented in this encounter Plan of Treatment Not on file documented as of this encounter Visit Diagnoses Not on filedocumented in this encounter
--- NOTE | 2025-02-22 13:45 | US_ITS ---
PROCEDURE: US OB BIOPHYSICAL PROFILE CLINICAL INDICATION: SGA COMPARISON: US US OB TRANSVAGINAL from 10/03/2024 US US OB /MATERNAL DETAIL from 10/24/2024 US OB BIOPHYSICAL PROFILE from 01/11/2025 US OB BIOPHYSICAL PROFILE from 01/30/2025 US OB BIOPHYSICAL PROFILE from 02/11/2025 US OB BIOPHYSICAL PROFILE from 02/15/2025 US OB BIOPHYSICAL PROFILE from 02/19/2025 FINDINGS: Transabdominal sonographic images of the uterus were obtained. From her established due date she is 37weeks 3days. The following parameters are obtained: Viable Fetus in the cephalic presentation with an anterior placenta grade 2. There continue to be placental lakes on the inferior aspect of the placenta and within the placenta. Movement of blood can be seen through these lakes. The largest Weiss is inferior and is measures 8.7 cm x 3.5 cm. The cervix measures 3.28 cm Measurements: heart Rate = 144bpm Amniotic fluid index: 11.39cm, MVP 3.86 cm Qualitative AFV:2 Breathing movements: 2 Gross Body Movements: 2 Tone: 2 Biophysical profile score: 8 No obvious anomalies evident.Kidneys, profile, stomach, bladder, four-chamber heart, three-vessel cord appear normal. IMPRESSION: 1. Viable fetus in the cephalic presentation with an anterior placenta grade 2. 2. There are multiple lakes within the placenta and at the inferior aspect of the placenta is a Weiss that measures 8.7 cm x 3.5 cm. There is movement of blood through this Weiss. 3. Biophysical profile is 8/8 with good breathing movement and movement seen. 4. Limited anatomical scan appears normal. Dictated by: Ulices Gomez MD 02/23/2025 06:49 Ulices Gomez MD in OV 02/23/2025 06:49
== END 2025-02-22 23:59 | disposition home or self-care (01) ==
LOC: RAD 13:36
PROVIDERS: PCP Obstetrics & Gynecology; Visit Provider Obstetrics & Gynecology
DX: O28.3 Abnormal ultrasonic finding on antenatal screening of mother (principal); O34.219 Maternal care for unspecified type scar from previous cesarean delivery; O09.293 Supervision of pregnancy with other poor reproductive or obstetric history, third trimester; O36.5930 Maternal care for other known or suspected poor fetal growth, third trimester, not applicable or unspecified; Z3A.37 37 weeks gestation of pregnancy
CPT/HCPCS: 76819

== ENCOUNTER 2025-02-24 12:42 | Outpatient (CLI) | payer OTHER, SELFPAY ==
--- OUTSIDE RECORDS SUMMARY | 2025-02-24 12:46 | XMS_ITS | Encounter Summary ---
Author Organization [employer] ([place], [place], [place], [place]) Address [address] [place] [address] Care Team Providers Care Special Machine Operator Name Role Phone Unavailable Primary Care Provider Unavailabl e Encounter Details Date Type Department Care Team (Late st Contact Info) Description 04/08/2021 Transcribed Document [facility] [place] [address] ProviderJuan Carlos MD [facility] [place], [place] [id number] Social History Tobacco Use Types Packs/Day Years [...] 04/08/2021 0:17 EDT Electronically signed by Chana [facility] Conversion Roll Handler Cerner at 11/21/2022 11:44 PM CDT documented in this encounter Plan of Treatment Not on file documented as of this encounter Visit Diagnoses Not on filedocumented in this encounter
--- OUTSIDE RECORDS SUMMARY | 2025-02-24 12:46 | XMS_ITS | Encounter Summary ---
Author Organization [employer] ([place], [place], [place], [place]) Address [address] [place] [address] Care Team Providers Care Hand Rounder Name Role Phone Unavailable Primary Care Provider Unavailabl e Encounter Details Date Type Department Care Team (Late st Contact Info) Description 04/10/2021 Transcribed Document [facility] Radiology [address] [place] [address] Herbie Srivastava MD [address] [place] [address] Dept. [place] [address] Social History Tobacco Use Types [...] 9:09 AM EDT Electronically signed by Chana [facility] Conversion Marshmallow Maker Cerner at 11/21/2022 11:49 PM CDT documented in this encounter Plan of Treatment Not on file documented as of this encounter Visit Diagnoses Not on filedocumented in this encounter
--- OUTSIDE RECORDS SUMMARY | 2025-02-24 12:46 | XMS_ITS | Encounter Summary ---
Author Organization [employer] ([place], [place], [place], [place]) Address [address] [place] [address] Care Team Providers Care Postdoctoral Research Associate Name Role Phone Unavailable Primary Care Provider Unavailabl e Encounter Details Date Type Department Care Team (Late st Contact Info) Description 04/07/2021 Transcribed Document [facility] [place] [address] [place] [address] ProviderJuan Carlos MD [address] [place], [place] [id number] Social History Tobacco Use Types Packs/Day Years [...] Historical ProviderMD - 04/07/2021 7:59 PM CDT [place] Suicide Severity Rating Scale (C-SSRS) Entered On: 04/08/2021 0:17 EDT Performed On: 04/08/2021 0:16 EDT by MARIANA ESTEVES RN [place] Suicide Severity Rating Scale (C-SSRS) CSSRS Past [...]
--- OUTSIDE RECORDS SUMMARY | 2025-02-24 12:46 | XMS_ITS | Encounter Summary ---
Author Organization [employer] ([place], [place], [place], [place]) Address [address] [place] [address] Care Team Providers Care Heat Treat Worker Name Role Phone Unavailable Primary Care Provider Unavailabl e Encounter Details Date Type Department Care Team (Late st Contact Info) Description 04/10/2021 Transcribed Document [facility] [place] [facility] [place] [address] ProviderJuan Carlos MD [address] [place], [place] [id number] Social History Tobacco Use Types Packs/Day Years [...] Historical ProviderMD - 04/10/2021 5:27 AM CDT [place] Suicide Severity Rating Scale (C-SSRS) Entered On: 04/10/2021 6:47 EDT Performed On: 04/10/2021 6:46 EDT by Nasreen Aldridge RN-PATIENT CARE BEDSIDE NON-EXEMPT [place] Suicide Severity Rating Scale (C-SSRS) CSSRS Past [...]
--- OUTSIDE RECORDS SUMMARY | 2025-02-24 12:46 | XMS_ITS | Encounter Summary ---
Author Organization [employer] ([place], [place], [place], [place]) Address [address] [place] [address] Care Team Providers Care Stockroom Selector Name Role Phone Unavailable Primary Care Provider Unavailabl e Encounter Details Date Type Department Care Team (Late st Contact Info) Description 04/11/2021 Transcribed Document [facility] [place] [facility] [place] [address] ProviderJuan Carlos MD [address] [place] [address] Social History Tobacco Use Types [...] Carlos ProviderMD - 04/11/2021 2:23 PM CDT [place] [id number] LIBERTAD WEBBNE :2000 Visit Time:04/11/2021 Your Visit [...] pelvic rest as discussed. Follow-up with your BALANCE STAFF STAKER in 2 days for repeat assessment. Allergies [...] provider. Document Revised: 08/31/2018 Document Reviewed: 10/21/2017 [employer] Patient Education ?? 2020 [employer] Inc. Vaginal Bleeding During , First Trimester [...] this is safe. General instructions ??? Take qnrs-wag-fgysutl and prescription medicines only as told by [...] provider. Document Revised: 11/13/2019 Document Reviewed: 10/27/2017 [employer] Patient Education ?? 2020 [employer]. Subchorionic Hematoma A subchorionic hematoma is [...] Reviewed: 09/20/2017 Elsevier Patient Education ?? 2020 [employer] Inc. Emergency Awareness and Preventative Care STROKE [...] Assistance with quitting is available by contacting 7-101-WGGKNOW. This is a free resource providing counseling, support, and referral. Or you may contact your personal physician. [place] Suicide Prevention Lifeline: The National Suicide Prevention [...] was given the opportunity to ask questions. Patient/Head Greenskeeper Name: Patient/Head Greenskeeper Signature: Relationship to Patient: Clinician/Hospital Head Greenskeeper Signature: Please Provide a Telephone Number Where You Can Be Reached: Is it Permissible To Leave a Message? Date: Electronically signed by Chana, [facility] Conversion Seals Engraver Cerner at 11/21/2022 11:34 PM CDT documented in this encounter Plan of Treatment Not on file documented as of this encounter Visit Diagnoses Not on filedocumented in this encounter
--- OUTSIDE RECORDS SUMMARY | 2025-02-24 12:46 | XMS_ITS | Encounter Summary ---
Author Organization [employer] ([place], [place], [place], [place]) Address [address] [place] [address] Care Team Providers Care Assessment Analyst Name Role Phone Unavailable Primary Care Provider Unavailabl e Encounter Details Date Type Department Care Team (Late st Contact Info) Description 04/10/[address] [facility] [place] [address] [place] [address] ProviderJuan Carlos MD [address] [place], [place] [address] Social History Tobacco Use Types Packs/Day Years [...]
--- OUTSIDE RECORDS SUMMARY | 2025-02-24 12:46 | XMS_ITS | Encounter Summary ---
Author Organization [employer] ([place], [place], [place], [place]) Address [address] [place] [address] Care Team Providers Care Housekeeping Laundry Worker Name Role Phone Unavailable Primary Care Provider Unavailabl e Encounter Details Date Type Department Care Team (Late st Contact Info) Description 04/07/2021 Transcribed Document [facility] [place] [facility] [place] [address] ProviderJuan Carlos MD [address] [place] [address] Social History Tobacco Use Types Packs/Day Years Used Date Smoking Tobacco: Never Assessed Comments Unknown Sex and Gender Information Value Date Recorded Sex Assigned at Female 02/02/2022 8:54 PM CDT Legal Sex Female 8:54 PM CDT Gender Identity Female 02/02/2022 8:54 PM CDT Sexual Orientation Not on file documented as of this encounter Miscellaneous Notes * Cerner Conversion Note - Jaun Carlos ProviderMD - 04/07/2021 7:59 PM CDT [...] - Non - Urgent Tracking Group : [facility] ED [place] MARIANA ESTEVES RN - [...] PNED ; Probability: 0 ; Diagnosis Code: [id number] ED Height and Weight Height Source : Measured Height Entry Format : [place] Height, Feet : 5 ft(Converted to: 152 cm, 60 Inch) Height, Inches : 7 Inch(Converted to: 0 ft 7 Inch, 17.78 cm) Clinical Height : 170.18 cm Weight Source, ED : Standing scale Weight Entry Format : [place] Weight, Pounds : 128 lb Clinical Dosing Weight : 58.18 kg Body Surface Area (BSA) : 1.67 m2 Body Mass Index : 20.1 kg/m2 [place] Body Weight (IBW) : 61.16 kg MARIANA ESTEVES RN - 04/07/2021 21:15 EDT documented in this encounter Plan of Treatment Not on file documented as of this encounter Visit Diagnoses Not on filedocumented in this encounter
--- OUTSIDE RECORDS SUMMARY | 2025-02-24 12:46 | XMS_ITS | Encounter Summary ---
Author Organization [employer] ([place], [place], [place], [place]) Address [address] [place] [address] Care Team Providers Care Machinist Instructor Name Role Phone Unavailable Primary Care Provider Unavailabl e Encounter Details Date Type Department Care Team (Late st Contact Info) Description 04/11/2021 Transcribed Document [facility] [place] [address] [place] [address] ProviderJuan Carlos MD [address] [place], [place] [phone] Social History Tobacco Use Types Packs/Day Years [...]
--- OUTSIDE RECORDS SUMMARY | 2025-02-24 12:46 | XMS_ITS | Encounter Summary ---
Author Organization [employer] ([place], [place], [place], [place]) Address [address] [place] [address] Care Team Providers Care Brand Executive Name Role Phone Unavailable Primary Care Provider Unavailabl e Encounter Details Date Type Department Care Team (Late st Contact Info) Description 04/10/2021 Transcribed Document [facility] Radiology [address] [place] [address] Herbie Méndez MD [address] [place] [address] Dept[place] [address] Social History Tobacco Use Types [...] 1-Time . Notes: spoke to multiple Ob education rn, with recomendations, patient remains stable, US update [...] a clinic referral service , just dial: [phone] (WELL) Our experts will provide you with [...]
--- OUTSIDE RECORDS SUMMARY | 2025-02-24 12:46 | XMS_ITS | Encounter Summary ---
Author Organization [employer] ([place], [place], [place], [place]) Address [address] [place] [address] Care Team Providers Care Taker Out Name Role Phone Unavailable Primary Care Provider Unavailabl e Encounter Details Date Type Department Care Team (Late st Contact Info) Description 04/07/2021 Transcribed Document [facility] [place] [facility] [place] [address] ProviderJuan Carlos MD [facility] [place], [place] [id number] Social History Tobacco Use Types Packs/Day Years [...] Communication Barrier : None Primary Language : Ukrainian General Information Comment : seen by provider [...]
--- OUTSIDE RECORDS SUMMARY | 2025-02-24 12:46 | XMS_ITS | Encounter Summary ---
Author Organization [employer] ([place], [place], [place], [place]) Address [address] [place] [address] Care Team Providers Care Cargo Surveyor Name Role Phone Unavailable Primary Care Provider Unavailabl e Encounter Details Date Type Department Care Team (Late st Contact Info) Description 04/11/2021 Transcribed Document [facility] [place] [facility] [place] [address] ProviderJuan Carlos MD [address] [place] [address] Social History Tobacco Use Types [...]
--- OUTSIDE RECORDS SUMMARY | 2025-02-24 12:46 | XMS_ITS | Encounter Summary ---
Author Organization [employer] ([place], [place], [place], [place]) Address [address] [place] [address] Care Team Providers Care Herd Tester Name Role Phone Unavailable Primary Care Provider Unavailabl e Encounter Details Date Type Department Care Team (Late st Contact Info) Description 04/10/2021 Transcribed Document [facility] [place] [address] ProviderJuan Carlos [place] [address] Social History Tobacco Use Types [...] EDT DCP GENERIC CODE Tracking Group : [facility] Tracking Acuity : 3 - Urgent [...] caused by 2019 novel coronavirus (SNOMED CT :[id number] ) Name of Problem: Disease caused by 2019 novel coronavirus ; Recorder: SYSTEM, SYSTEM; Confirmation: Confirmed ; Classification: Medical ; Code: [id number] ; Last Updated: 04/07/2021 22:55 EDT ; Life Cycle Date: 04/07/2021 ; Life Cycle Status: Active ; Vocabulary: SNOMED CT ; Comments: 04/07/2021 22:55 - SYSTEM, SYSTEM Problem added by a rule: [id number]. Diagnoses(Active) Medication administration Date: 04/10/2021 ; Diagnosis Type: Reason For Visit ; Confirmation: Complaint of ; Clinical Dx: Medication administration ; Classification: Medical ; Clinical Service: Emergency medicine ; Code: PNED ; Probability: 0 ; Diagnosis Code: [id number] ED Height and Weight Height Source : Measured Height Entry Format : [place] Height, Feet : 5 ft(Converted to: 152 cm, 60 Inch) Height, Inches : 7 Inch(Converted to: 0 ft 7 Inch, 17.78 cm) Clinical Height : 170.18 cm Weight Source, ED : Standing scale Weight Entry Format : [place] Weight, Pounds : 128 lb Clinical Dosing Weight : 58.18 kg Body Surface Area (BSA) : 1.67 m2 Body Mass Index : 20.1 kg/m2 [place] Body Weight (IBW) : 61.16 kg KIYA [...]
--- OUTSIDE RECORDS SUMMARY | 2025-02-24 12:46 | XMS_ITS | Encounter Summary ---
Author Organization [employer] ([place], [place], [place], [place]) Address [address] [place] [address] Care Team Providers Care Refrigeration Repair Supervisor Name Role Phone Unavailable Primary Care Provider Unavailabl e Encounter Details Date Type Department Care Team (Late st Contact Info) Description 04/11/2021 Transcribed Document [facility] [place] Medicine [facility] [place] [address] ProviderJuan Carlos MD [facility] [place] [address] Social History Tobacco Use [...] Patient reports brownish-red vaginal spotting that is chiropractic physician than her menstrual period. This began yesterday and has continued today. She denies any abdominal pain or pelvic cramping. Also denies fever, nausea/vomiting, vaginal discharge. Patient tested positive for COVID-19 4 days ago and yesterday received the monoclonal antibody infusion. She currently follows with an ELECTRODE TURNER AND FINISHER at [facility], however is in the process of transitioning [...] April 11, 2021 14:10 EDT Encounter info: [id number], BEREKET Diaz [facility], Emergency Room, 04/11/2021 - 04/11/2021 . Reexamination/ [...] discussed strict pelvic rest and follow-up with ELECTRODE TURNER AND FINISHER. Patient voices understanding and agreement with plan. [...] pelvic rest as discussed. Follow-up with your ELECTRODE TURNER AND FINISHER in 2 days for repeat assessment., Follow up with primary care provider Within 2 to 3 days Call for follow up appointment. Return to the ER for any new or worsening symptoms as discussed, especially fever, persistent pelvic pain, vaginal bleeding greater than 2 pads/hour. Recommend pelvic rest as discussed. Follow-up with your ELECTRODE TURNER AND FINISHER in 2 days for repeat assessment., Follow up with primary care provider Within 2 to 3 days Call for follow up appointment. Return to the ER for any new or worsening symptoms as discussed, especially fever, persistent pelvic pain, vaginal bleeding greater than 2 pads/hour. Recommend pelvic rest as discussed. Follow-up with your ELECTRODE TURNER AND FINISHER in 2 days for repeat assessment.. Counseled: Patient, Regarding diagnosis, Regarding diagnostic results, Regarding treatment plan, Patient indicated understanding of instructions. documented in this encounter Plan of Treatment Not on file documented as of this encounter Visit Diagnoses Not on filedocumented in this encounter
--- OUTSIDE RECORDS SUMMARY | 2025-02-24 12:46 | XMS_ITS | Encounter Summary ---
Author Organization [employer] ([place], [place], [place], [place]) Address [address] [place] [address] Care Team Providers Care Seasonal Tax Preparer Name Role Phone Unavailable Primary Care Provider Unavailabl e Encounter Details Date Type Department Care Team (Late st Contact Info) Description 04/11/2021 Transcribed Document [facility] [place] [facility] [place] [address] ProviderJuan Carlos MD [facility] [place] [address] Social History Tobacco Use Types [...] 04/11/2021 14:35 EDT Electronically signed by Chana [facility] Conversion Laboratory Machinist Cerner at 11/21/2022 11:36 PM CDT documented in this encounter Plan of Treatment Not on file documented as of this encounter Visit Diagnoses Not on filedocumented in this encounter
--- OUTSIDE RECORDS SUMMARY | 2025-02-24 12:46 | XMS_ITS | Encounter Summary ---
Author Organization [employer] ([place], [place], [place], [place]) Address [address] [place] [address] Care Team Providers Care Process Engineering Intern Name Role Phone Unavailable Primary Care Provider Unavailabl e Encounter Details Date Type Department Care Team (Late st Contact Info) Description 04/11/2021 Transcribed Document [facility] [place] [address] [place] [address] ProviderJuan Carlos MD [address] [place] [place], [place] [id number] Social History Tobacco Use Types Packs/Day Years [...]
--- OUTSIDE RECORDS SUMMARY | 2025-02-24 12:46 | XMS_ITS | Referral Summary ---
Author Organization [employer] ([place], [place], [place], [place]) Address [address] [place] [address] Care Team Providers Care High School Counselor Name Role Phone Unavailable Primary Care [...]
--- OUTSIDE RECORDS SUMMARY | 2025-02-24 12:46 | XMS_ITS | Encounter Summary ---
Author Organization [employer] ([place], [place], [place], [place]) Address [address] [place] [address] Care Team Providers Care Handle Finisher Name Role Phone Unavailable Primary Care Provider Unavailabl e Encounter Details Date Type Department Care Team (Late st Contact Info) Description 04/08/2021 Transcribed Document [facility] [place] Medicine [facility] [place] [address] ProviderJuan Carlos MD [address] [place] [address] Social History Tobacco Use Types [...]
--- OUTSIDE RECORDS SUMMARY | 2025-02-24 12:46 | XMS_ITS | Clinical Summary ---
Author Organization [facility] Address [address] [place] [address] Care Team Providers Care Prototype Machinist Name Role Phone Krysten Burt MD Primary Care Provider [phone] Allergies No known active allergies Medications pseudoephedrine [...] (10/02/2021): Added automatically from request for surgery [id number] Immunizations Immunization Administration Dates Next Due Tdap [...] in a jail (including now)? No 03/27/2024 [place] Depression Scale Answer Date Recorded [place] Depression Scale Total 8 12/07/2021 The thought [...] 12/01/2023 11/30/2022, 11/30/2022, 07/15/2022, Additional history exists [id number] Vaccine ( - season) 2024 UKY- SDOH [...] Detected Not Detected 12/02/2022 9:37 AM EDT [facility] Swab Endocervical structure / Unknown Non-blood Collection / Unknown 11/30/2022 3:09 PM EDT 11/30/2022 4:07 PM EDT Narrative [facility] - 12/02/2022 9:37 AM EDT This test is performed by the esolidar m2000 instrument for Real Time PCR C. trachomatis and N. gonorrhea. This test is FDA approved for use with endocervical, vaginal, and urine specimens. This test is used for clinical purposes. It should not be regarded as invesigational or for research. The [facility] Clinical Microbiology Laboratory is certified under the Clinical Laboratory Improvement Amendments of 1988 (CLIA-88) as qualified to perform high complexity clinical laboratory testing. us Rhea Ramos MD LAB MICROBIOLOGY - GENERAL ORDERABLES Final Result [facility] [address] [place] [address] * Pap Test (11/30/2022 3:09 PM EDT) Case Report Cytology Case: [id number] Authorizing Provider: Rhea Ramos MD Collected: 11/30/2022 1509 Ordering Location: Medical Office Building Received: 11/30/2022 161 Obstetrics and Gynecology First Screen: Shayy Gordon Specimen: ThinPrep Pap Test, Liquid-Based Cervical/Vaginal, CERVICAL/VAGINAL 12/06/2022 3:06 PM EDT [facility] Interpretation NEGATIVE FOR INTRAEPITHELIAL LESION OR MALIGNANCY 12/06/2022 3:06 PM EDT [facility] at 1506 EDT Specimen Adequacy Satisfactory for evaluation; endocervical/villanueva sformation zone component present. Slide imaged by the ThinPrep Imaging system and selected 22 corado reviewed then full manual screening. 12/06/2022 3:06 PM EDT [facility] Cervical cytology is a screening [...] results is suggested (please call Microbiology at [phone] for results). 12/06/2022 3:06 PM EDT [facility] Menstrual Status Cyclic 12/07/19 3:06 PM EDT [facility] Contraceptive History Not Applicable 12/06/2022 3:06 PM EDT [facility] Screening Type Routine Screen 2022 3:06 PM EDT [facility] High Risk? No 12/06/2022 3:06 PM EDT [facility] HPV Testing Requested? No HPV Testing Requested 12/06/2022 3:06 PM EDT [facility] Previous Cancer History No 12/06/2022 3:06 PM EDT [facility] Clinical Information R10.2 - Pelvic and perineal pain [ICD-10-CM] 12/06/2022 3:06 PM EDT [facility] Last Menstrual Period 10/25/2022 12/06/2022 3:06 PM EDT [facility] Swab Vaginal and cervical cytologic material / Unknown Non-blood Collection / Unknown 11/30/2022 3:09 PM EDT 11/30/2022 4:15 PM EDT us Rhea Ramos MD LAB CYTOLOGY ORDERABLES Fi nal Result [facility] [address] [place] [address] * HIV 1 & 2 Antibody/Antigen Screen (04/30/2021 8:23 PM EDT) HIV 1 & 2 Antibody/Anti gen Screen Nonreactive Nonreactive 04/30/2021 8:23 PM EDT [facility] Blood Venous blood specimen / Unknown 04/30/2021 3:09 PM EDT Reha Ramos MD LAB BLOOD ORDERABLES Final Result Performing Organization Address City/[facility]/ZIP Co de Phone Number [facility] [address] [place] [address] * Hepatitis C Antibody (04/30/2021 8:21 PM EDT) Pathologist [facility] Hepatitis C Antibody Negative Negative 04/30/2021 8:21 PM EDT [facility] Blood Venous blood specimen / Unknown 04/30/2021 3:09 PM EDT Rhea Ramos MD LAB BLOOD ORDERABLES Final Result Performing Organization Address [facility] Co de Phone Number [facility] [address] [place] [address] from Last 3 Months or Most Recently Relevant to Health Maintenance Insurance MEDICAID Advance Directives * Full Code (Latest Code Status on File) Date Activated Date Inactivated Comments 10/23/2021 12:34 PM 10/26/2021 4:44 PM Question Answer Comments Patient has decision-making capacity? Yes Care Teams Prototype Machinist Relationship Specialty Start Date End Date Krysten Burt MD [address] [facility] [address] [place] [address] PCP - General Adolescent Medicine 12/29/22
--- OUTSIDE RECORDS SUMMARY | 2025-02-24 12:46 | XMS_ITS | Clinical Summary ---
Author Organization [employer] [facility] Address [address] [place] [phone] Phone Care Team Providers Care Building Materials Sales Attendant Name Role Phone Unavailable Unavailable Conditions or Problems No information available. Medications No information available. Medications Administered No information available. Allergies, Adverse Reactions, Alerts No information available. Results No information available. Plan of Care No information available. Procedures No information available. Vital Signs No information available. Immunizations No information available. Advance Directives No information available.
--- OUTSIDE RECORDS SUMMARY | 2025-02-24 12:46 | XMS_ITS | Encounter Summary ---
Author Organization [employer] ([place], [place], [place], [place]) Address [address] [place] [address] Care Team Providers Care Fairing Worker Name Role Phone Unavailable Primary Care Provider Unavailabl e Encounter Details Date Type Department Care Team (Late st Contact Info) Description 04/08/2021 Transcribed Document [facility] [place] Medicine [facility] [place] [address] ProviderJuan Carlos MD [address] [place] [address] Social History Tobacco Use Types [...] Carlos ProviderMD - 04/08/2021 12:05 AM CDT [place] [id number] LIBERTAD WEBBNE :2000 Visit Time:04/07/2021 Your Visit [...] take Tylenol as needed. Follow-up with your SUPERVISOR LINE DEPARTMENT. Allergies No Known Medication Allergies Immunizations This [...] areas. Get rest and stay hydrated. Take kwpp-bmh-jhwonns medicines, such as acetaminophen, to help you [...] provider. Document Revised: 07/10/2020 Document Reviewed: 07/10/2020 ElseSymvato Patient Education ?? 2020 [employer] Inc. COVID-19: How to Protect Yourself and Others Know how it spreads ??? There is currently no vaccine to prevent coronavirus disease 2019 (COVID-19). ??? The best way to prevent illness is to avoid being exposed to this virus. ??? The virus is thought to spread mainly from zkruaj-qa-yoqlra. ? Between people who are in close [...] are not readily available, use a hand software designer that contains at least 60% alcohol. Cover [...] are at higher risk of getting very sick.www.cdc.gov/coronavirus/2019-ncov/wbzu-vqsok-motcragjemz/vltrvx-qo-vsvbck -risk.html Cover your mouth and nose with [...] available, clean your hands with a hand software designer that contains at least 60% alcohol. Clean and disinfect ??? Clean AND disinfect frequently touched surfaces daily. This includes tables, doorknobs, light switches, countertops, handles, desks, phones, keyboards, toilets, faucets, and sinks. www.cdc.gov/coronavirus/2019-ncov/utpgzad-xkhxvch-iskr/xgwmnbguwlgq-jpqi-zpdv. html ??? If surfaces are dirty, clean [...] Reviewed: 02/14/2020 Elsevier Patient Education ?? 2020 [employer]. COVID-19 Frequently Asked Questions COVID-19 (coronavirus disease) [...] the coronavirus come from? In July 2019, [place] told the World Health Organization (WHO) about several cases of lung disease (human respiratory illness). These cases were linked to an open seafood and livestock market in the [facility]. The link to the [...] and virus naming ??? World Health Organization: www.who.int/emergencies/diseases/cwxoa-mncmbyoekjg-1749/technical-guidance Who is at risk for complications from [...] water are not available, use alcohol-based hand software designer. ??? Avoid touching your face, mouth, nose, [...] (CDC): www.cdc.gov/coronavirus/2019-ncov/travelers ??? World Health Organization (WHO): www.who.int/emergencies/diseases/nvmcv-xdgpueydqse-7667/travel-advice What should I do if I am sick? General instructions to stop the spread of infection ??? Wash your hands often with soap and water for at least 20 seconds. If soap and water are not available, use alcohol-based hand software designer. ??? Cough or sneeze into a tissue, [...] in hot, soapy water or use a photo stylist. Air-dry your dishes. ??? Wash laundry in [...] Organization (WHO) ??? Information and news updates: www.who.int/emergencies/diseases/dxkvi-afexwpvkrpo-2869 ??? Coronavirus health topic: www.who.int/health-topics/coronavirus ??? Questions and answers on COVID-19: www.who.int/news-room/q-a-detail/o-f-lgbmfaybubirz ??? Global tracker: Ur[employer]Rx[employer] Citizen Of [place] Academy of Pediatrics (AAP) ??? Information for families: www.healthychildren.org/Icelandic/health-issues/conditions/chest-lungs/Pages/201 0-Avhwh-Gpwhafnjlce.aspx The coronavirus situation is changing rapidly. Check [...] provider. Document Revised: 07/22/2020 Document Reviewed: 07/22/2020 NeuMoDx Molecular Patient Education ?? 2020 [employer] Inc. Emergency Awareness and Preventative Care STROKE [...] Assistance with quitting is available by contacting 6-758-BWNXNOW. This is a free resource providing counseling, support, and referral. Or you may contact your personal physician. FITiST Suicide Prevention Lifeline: The National Suicide Prevention [...] was given the opportunity to ask questions. Patient/Cloth Shearer Name: Patient/Cloth Shearer Signature: Relationship to Patient: Clinician/Hospital Cloth Shearer Signature: Please Provide a Telephone Number Where You Can Be Reached: Is it Permissible To Leave a Message? Date: Electronically signed by [facility] Conversion Vacuum Form Operator Yu at 11/21/2022 11:32 PM CDT documented in this encounter Plan of Treatment Not on file documented as of this encounter Visit Diagnoses Not on filedocumented in this encounter
--- OUTSIDE RECORDS SUMMARY | 2025-02-24 12:46 | XMS_ITS | Encounter Summary ---
Author Organization [employer] ([place], [place], [place], [place]) Address [address] [place] [address] Care Team Providers Care Electrical Systems Engineer Name Role Phone Unavailable Primary Care Provider Unavailabl e Encounter Details Date Type Department Care Team (Late st Contact Info) Description 04/07/2021 Transcribed Document [facility] [place] [address] [place] [address] ProviderJuan Carlos MD [address] [place], [place] [id number] Social History Tobacco Use Types Packs/Day Years [...]
--- OUTSIDE RECORDS SUMMARY | 2025-02-24 12:46 | XMS_ITS | Encounter Summary ---
Author Organization [employer] ([place], [place], [place], [place]) Address [address] [place] [address] Care Team Providers Care Manager Plumbing Name Role Phone Unavailable Primary Care Provider Unavailabl e Encounter Details Date Type Department Care Team (Late st Contact Info) Description 04/10/2021 Transcribed Document [facility] [place] [facility] [place] [address] ProviderJuan Carlos MD [place] [address] Social History Tobacco Use Types [...]
--- OUTSIDE RECORDS SUMMARY | 2025-02-24 12:46 | XMS_ITS | Encounter Summary ---
Author Organization [employer] ([place], [place], [place], [place]) Address [address] [place] [address] Care Team Providers Care Server Developer Name Role Phone Unavailable Primary Care Provider Unavailabl e Encounter Details Date Type Department Care Team (Late st Contact Info) Description 04/10/2021 Transcribed Document [facility] [facility] [place] [address] ProviderJuan Carlos MD [facility] [place] [id number] Social History Tobacco Use Types Packs/Day Years [...] Communication Barrier : None Primary Language : Estonian Any Spiritual/Cultural Needs or Requests : No [...] - 04/10/2021 6:46 EDT Electronically signed by Rommel Zayas Conversion Medical Reimbursement Specialist Cerner at 11/21/2022 11:44 PM CDT documented in this encounter Plan of Treatment Not on file documented as of this encounter Visit Diagnoses Not on filedocumented in this encounter
--- OUTSIDE RECORDS SUMMARY | 2025-02-24 12:46 | XMS_ITS | Clinical Summary ---
Author Organization [employer] ([place], [place], [place], [place]) Address [address] [place] [address] Care Team Providers Care Academic Adviser Name Role Phone Unavailable Primary Care [...]
--- OUTSIDE RECORDS SUMMARY | 2025-02-24 12:46 | XMS_ITS | Encounter Summary ---
Author Organization [employer] ([place], [place], [place], [place]) Address [address] [place] [address] Care Team Providers Care Funeral Car Driver Name Role Phone Unavailable Primary Care Provider Unavailabl e Encounter Details Date Type Department Care Team (Late st Contact Info) Description 04/11/2021 Transcribed Document [facility] [place] [address] [place] [address] ProviderJuan Carlos MD [address] [place], [place] [address] Social History Tobacco Use Types Packs/Day Years [...] Historical ProviderMD - 04/11/2021 9:48 AM CDT [place] Suicide Severity Rating Scale (C-SSRS) Entered On: 04/11/2021 12:05 EDT Performed On: 04/11/2021 12:04 EDT by Lacey Chau RN [place] Suicide Severity Rating Scale (C-SSRS) CSSRS Past Month Wish to be : No CSSRS Past Month Suicidal Thoughts : No CSSRS Lifetime Suicide Behavior : No Suicide Severity Rating Score : 0 Suicide Severity Rating : No Additional Care Required at this time Lacey Chau RN - 04/11/2021 12:04 EDT Electronically signed by Chana [facility] Conversion Auto Technician Cerner at 11/21/2022 11:45 PM CDT documented in this encounter Plan of Treatment Not on file documented as of this encounter Visit Diagnoses Not on filedocumented in this encounter
--- OUTSIDE RECORDS SUMMARY | 2025-02-24 12:46 | XMS_ITS | Encounter Summary ---
Author Organization [employer] ([place], [place], [place], [place]) Address [address] [place] [address] Care Team Providers Care Single Stayer Operator Name Role Phone Unavailable Primary Care Provider Unavailabl e Encounter Details Date Type Department Care Team (Late st Contact Info) Description 04/11/2021 Transcribed Document [facility] [place] [facility] [place] [address] ProviderJuan Carlos MD [address] [place] [address] Social History Tobacco Use Types [...] 12:12 PM CDT Electronically signed by Chana [facility] Conversion Splitter Head Yu at 11/21/2022 11:35 PM CDT documented in this encounter Plan of Treatment Not on file documented as of this encounter Visit Diagnoses Not on filedocumented in this encounter
--- OUTSIDE RECORDS SUMMARY | 2025-02-24 12:46 | XMS_ITS | Encounter Summary ---
Author Organization [employer] ([place], [place], [place], [place]) Address [address] [place] [address] Care Team Providers Care Post Framer Name Role Phone Unavailable Primary Care Provider Unavailabl e Encounter Details Date Type Department Care Team (Late st Contact Info) Description 04/10/2021 Transcribed Document [facility] Family Medicine [facility] [place] [address] ProviderJuan Carlos MD [address], [...] Cavazos MD - 04/10/2021 8:46 AM CDT [place] [id number] LIBERTAD DE LEONNE :2000 Visit Time:04/10/2021 Your [...] or High Risk [phone] [address]: [address] [place] [id number]- [facility] (1) Follow Up with For a clinic referral service , just dial: [phone] (WELL) Our experts will provide you with [...] water are not available, use alcohol-based hand accountant property. ??? Avoid touching your mouth, face, eyes, [...] pump parts after expressing milk. Follow the chain builder's instructions to clean and disinfect all pump [...] (CDC): www.cdc.gov/coronavirus/2019-ncov/ ??? World Health Organization (WHO): www.who.int/news-room/q-a-detail/n-q-tp-hunjl-82-jgojjtmhx-nmezoprtcy-lyo-pytb stfeeding ??? [place] College of Obstetricians and Gynecologists (ACOG): www.acog.org/patient-resources/faqs//dsknzerdrdq-esfzegywz-yyj-breast feeding Questions to ask your health care [...] provider. Document Revised: 07/25/2020 Document Reviewed: 07/25/2020 homedeco2u Patient Education ?? 2020 [employer]. 10 Things You Can Do to Manage [...] clean your hands with an alcohol-based hand accountant property that contains at least 60% alcohol. 8. [...] Reviewed: 07/10/2020 Elsevier Patient Education ?? 2020 [employer]edeco2u Inc. Emergency Awareness and Preventative Care STROKE [...] Assistance with quitting is available by contacting 6-377-HXPWNOW. This is a free resource providing counseling, support, and referral. Or you may contact your personal physician. [employer] Suicide Prevention Lifeline: The National Suicide Prevention [...] was given the opportunity to ask questions. Patient/Sales Promotion Director Name: Patient/Sales Promotion Director Signature: Relationship to Patient: Clinician/Hospital Sales Promotion Director Signature: Please Provide a Telephone Number Where You Can Be Reached: Is it Permissible To Leave a Message? Date: Electronically signed by Chana [facility] Conversion Cargo And Ramp Services Manager Yu at 11/21/2022 11:37 PM CDT documented in this encounter Plan of Treatment Not on file documented as of this encounter Visit Diagnoses Not on filedocumented in this encounter
--- OUTSIDE RECORDS SUMMARY | 2025-02-24 12:46 | XMS_ITS | Encounter Summary ---
Author Organization [employer] ([place], [place], [place], [place]) Address [address] [place] [address] Care Team Providers Care Oracle Programmer Analyst Name Role Phone Unavailable Primary Care Provider Unavailabl e Encounter Details Date Type Department Care Team (Late st Contact Info) Description 04/07/2021 Transcribed Document [facility] Family Medicine [facility] [place] [address] ProviderJuan Carlos MD [address] [place] [address] Social History Tobacco Use Types [...] 11:58 PM CDT Electronically signed by Chana [facility] Conversion Communication Electronic Technician Cerner at 11/21/2022 11:36 PM CDT documented in this encounter Plan of Treatment Not on file documented as of this encounter Visit Diagnoses Not on filedocumented in this encounter
--- OUTSIDE RECORDS SUMMARY | 2025-02-24 12:46 | XMS_ITS | Encounter Summary ---
Author Organization [employer] ([place], [place], [place], [place]) Address [address] [place] [address] Care Team Providers Care Jig And Fixture Builder Name Role Phone Unavailable Primary Care Provider Unavailabl e Encounter Details Date Type Department Care Team (Late st Contact Info) Description 04/11/2021 Transcribed Document [facility] [place] [facility] [place] [address] [facility] [place], [place] [id number] Social History Tobacco Use Types Packs/Day Years [...] Communication Barrier : None Primary Language : Kinyarwanda Any Spiritual/Cultural Needs or Requests : No [...]
--- OUTSIDE RECORDS SUMMARY | 2025-02-24 12:46 | XMS_ITS | Encounter Summary ---
Author Organization [employer] ([place], [place], [place], [place]) Address [address] [place] [address] Care Team Providers Care Engineer Geophysical Laboratory Name Role Phone Unavailable Primary Care Provider Unavailabl e Encounter Details Date Type Department Care Team (Late st Contact Info) Description 04/11/2021 Transcribed Document [facility] [place] [facility] [place] [address] ProviderJuan Carlos MD [facility] [place] [address] Social History Tobacco Use Types [...] : 3 - Urgent Tracking Group : [facility] Harleen Brown RN - 04/11/2021 [...] caused by 2019 novel coronavirus (SNOMED CT :[id number] ) Name of Problem: Disease caused by 2019 novel coronavirus ; Recorder: SYSTEM, SYSTEM; Confirmation: Confirmed ; Classification: Medical ; Code: [id number] ; Last Updated: 04/07/2021 22:55 EDT ; Life Cycle Date: 04/07/2021 ; Life Cycle Status: Active ; Vocabulary: SNOMED CT ; Comments: 04/07/2021 22:55 - SYSTEM, SYSTEM Problem added by a rule: [id number]. Diagnoses(Active) Vaginal bleeding Date: 04/11/2021 ; Diagnosis Type: Reason For Visit ; Confirmation: Complaint of ; Clinical Dx: Vaginal bleeding ; Classification: Medical ; Clinical Service: Non-Specified ; Code: PNED ; Probability: 0 ; Diagnosis Code: [id number] ED Height and Weight Height Source : Measured Height Entry Format : Randolph Height, Feet : 5 ft(Converted to: 152 cm, 60 Inch) Height, Inches : 7 Inch(Converted to: 0 ft 7 Inch, 17.78 cm) Clinical Height : 170.18 cm Weight Source, ED : Standing scale Weight Entry Format : Randolph Weight, Pounds : 128 lb Clinical Dosing Weight : 58.18 kg Body Surface Area (BSA) : 1.67 m2 Body Mass Index : 20.1 kg/m2 Crowley Body Weight (IBW) : 61.16 kg Harleen Brown RN - 04/11/2021 10:10 EDT Electronically signed by Brian Zayas Conversion Bioprocess Development Engineer Cerner at 11/21/2022 11:41 PM CDT documented in this encounter Plan of Treatment Not on file documented as of this encounter Visit Diagnoses Not on filedocumented in this encounter
--- OUTSIDE RECORDS SUMMARY | 2025-02-24 12:46 | XMS_ITS | Encounter Summary ---
Author Organization [employer] ([place], [place], [place], [place]) Address [address] [place] [address] Care Team Providers Care Field Marketing Specialist Name Role Phone Unavailable Primary Care Provider Unavailabl e Encounter Details Date Type Department Care Team (Late st Contact Info) Description 04/07/2021 Transcribed Document [facility] [place] [address] ProviderJuan Carlos MD [address] [place] [address] Social History Tobacco Use Types [...] transitioning her care from her OB at [facility] her sleep as to a high school guidance counselor at . Denies any abdominal pain or [...] What Your Test Results Mean - [facility]. Follow up with: Follow up with primary care provider Within 2 to 3 days Call for follow up appointment. Return to the ER for any new or worsening symptoms as discussed, especially difficulty breathing or low O2 sat below 90%. Drink plenty of fluids and rest. You may take Tylenol as needed. Follow-up with your INFORMATION SYSTEMS SUPERVISOR.; , Follow up with primary care provider Within 2 to 3 days Call for follow up appointment. Return to the ER for any new or worsening symptoms as discussed, especially difficulty breathing or low O2 sat below 90%. Drink plenty of fluids and rest. You may take Tylenol as needed. Follow-up with your INFORMATION SYSTEMS SUPERVISOR.. Counseled: Patient, Regarding diagnosis, Regarding diagnostic results, Regarding treatment plan, Patient indicated understanding of instructions. documented in this encounter Plan of Treatment Not on file documented as of this encounter Visit Diagnoses Not on filedocumented in this encounter
--- OUTSIDE RECORDS SUMMARY | 2025-02-24 12:46 | XMS_ITS | Clinical Summary ---
Author Organization [facility] Address [address] [place] [address] Care Team Providers Care Needle Polisher Name Role Phone Provider, No Known Primary [...] Description 12/12/2024 11:15 AM EDT Office Visit [facility] [address] [facility] [address] [place] [address] Yee Purdy MD Previous delivery affecting (Primary Dx) 12/12/2024 11:15 AM EDT - 12/12/2024 11:59 PM EDT Hospital Encounter [facility] US PER DIAG CTR [address] [place] [address] Nav Hassan MD Subchorionic hematoma, [...] Procedure Name Priority Date/Time Associated Diagnosis Comments [facility] Routine 12/12/2024 11:54 AM EDT Subchorionic hematoma, antepartum, single or unspecified fetus Previous delivery affecting , unspecified gestational age from Last 3 Months Results * [facility] (12/12/2024 11:54 AM EDT) Anatomical Region Laterality Modality Ultrasound 12/12/2024 11:4 9 AM EDT Narrative 12/15/2024 9:28 PM EDT PAT NAME: LIBERTAD DE LEON [facility] REC#: [id number] DA: [id number] PAT GEND: F PAT TYPE: O EXAM HUA: [id number] REF PHYS CARLOS MCCLELLAN Comparison Studies The [...] EFW (oz) 3 oz EFW by: Hadlock (KIB-IQ-AV-FL) Extended Cav. septi pel. tr 4.8 mm [...] Normal Heart / Thorax 3-vessel view: Normal 3-jwbyoo-tnytkkw view: normal Stomach: Appears normal Kidneys: Appears [...] up at your discretion Coding ======= Description: 40092-61 Follow Up Senior Bioinformatics Specialist: Isabel Mckay RDMS Physician: Yee Purdy MD, FACOG Electronically signed by: Yee Purdy MD, FACOG at: 21:28 Procedure Note Yee Purdy MD - 12/15/2024 PAT NAME: LIBERTAD DE LEON [facility] REC#: [id number] DA: 2000 PAT GEND: F PAT TYPE: O EXAM HUA: [id number] REF PHYS CARLOS MCCLELLAN Comparison Studies The findings of this study are compared to the prior ultrasound studydated 10/30/24 Patient Status Outpatient Indication ======== Follow up placental bucio. Previous c/s x 1. Maternal Assessment Fbbacg288 cm Height (ft)5 ft Height (in)7 in Vpldnw02 kg Weight (lb)153 lb BMI24.01 kg/m Method ======= Transabdominal ultrasound examination. View: Adequate view ========= Smith . Number of fetuses: 1 Dating ====== Method of dating:based on stated ORBB GA by prior bwsmnmeotn68 w + 1 d ROBB by prior assessment:03/12/2025 Ultrasound examination on:12/12/2024 GA by U/S based upon:AC, BPD, Femur, HC GA by U/S27 w + 3 d ROBB by U/S:03/10/2025 Previous dating:based on stated ROBB, selected on 10/30/2024 Agreed ROBB of previous datin03/12/2025 Assigned:based on stated ROBB, selected on 12/12/2024 Assigned GA27 w + 1 d Assigned ROBB:03/12/2025 mufpkw768 d Biometry Standard BPD70.1 mm 28w 1d 73% Hadlock OFD91.1 mm 29w 3d 96% Lalitha HC260.1 mm 28w 2d 60% Hadlock Cerebellum tr33.0 mm 28w 0d 90% Hill AC219.8 mm 26w 3d 21% Hadlock Femur50.1 mm 27w 0d 29% Hadlock Jrmwahj08.9 mm 27w 5d 60% Lalitha HC / AC1.18 MGK209 g 26w 4d 29% Hadlock EFW (lb)2 lb EFW (oz)3 oz EFW by:Hadlock (AEK-IE-LS-FL) Extended Cav. septi pel. tr4.8 mm CM6.1 mm 35% Nicolaides Head / Face / Neck Cephalic index0.77 31% Nicolaides Extremities / Bony Struc FL / BPD0.71 FL / HC0.19 FL / AC0.23 Other Structures TDX901 bpm General Evaluation Cardiac activity present. FHR [...] LVOT view:Normal Heart / Thorax 3-vessel view:Normal 3-ggbxgp-mtgsshn view:normal Stomach:Appears normal Kidneys:Appears normal Bladder:Appears normal Gender:female Wants to know gender:yes Maternal Structures Uterus / Cervix Cervical .1 mm Doppler Arterial Umbilical A PI1.03 51% [...] Follow up at your discretion Coding ======= Description:33444-41 Follow Up Senior Bioinformatics Specialist: Isabel Mckay RDIA Physician: Yee Pudry MD, FACOG Electronically signed by: Yee Purdy MD, FACOG at: 1021:28 us Nav Hassan MD IMG US ORDERABLES Final Re sult from Last 3 Months Insurance [facility] PL[facility] Care Teams Needle Polisher Relationship Specialty Start Date End Date Provider, No Known [facility] [place] [address] PCP - General 10/26/24
--- OUTSIDE RECORDS SUMMARY | 2025-02-24 12:46 | XMS_ITS | Encounter Summary ---
Author Organization [employer] ([place], [place], [place], [place]) Address [address] [place] [address] Care Team Providers Care Public Transit Specialist Name Role Phone Unavailable Primary Care Provider Unavailabl e Encounter Details Date Type Department Care Team (Late st Contact Info) Description 04/10/2021 Transcribed Document [facility] [facility] [place] [address] ProviderJuan Carlos MD [address] [place] [address] Social History Tobacco Use Types [...] Cavazos MD - 04/10/2021 8:45 AM CDT [place] [id number] LIBERTAD DE LEONNE :2000 Visit Time:04/10/2021 Your [...] Risk [phone] [address]: [address] [place] [id number]- [facility] (1) Follow Up with For a clinic referral service , just dial: [phone] (WELL) Our experts will provide you with [...] water are not available, use alcohol-based hand regulatory associate. ??? Avoid touching your mouth, face, eyes, [...] pump parts after expressing milk. Follow the visitor services associate's instructions to clean and disinfect all pump [...] (CDC): www.cdc.gov/coronavirus/2019-ncov/ ??? World Health Organization (WHO): www.who.int/news-room/q-a-detail/e-j-is-ykmzw-71-tveehrgnx-ablvvmwfjd-qri-acbi stfeeding ??? [place] [employer]st[employer] Gynec[employer] (ACOG): www.acog.org/patient-resources/faqs//gtvssivsvcj-varrtqydz-vuz-breast feeding Questions to ask your health care [...] provider. Document Revised: 07/25/2020 Document Reviewed: 07/25/2020 [employer] Patient Education ?? 2020 [employer]. 10 Things You Can Do to Manage [...] clean your hands with an alcohol-based hand regulatory associate that contains at least 60% alcohol. 8. [...] Reviewed: 07/10/2020 Elsevier Patient Education ?? 2020 [employer]. Emergency Awareness and Preventative Care STROKE [...] Assistance with quitting is available by contacting 7-806-KXLJNOW. This is a free resource providing counseling, support, and referral. Or you may contact your personal physician. [employer] Suicide Prevention Lifeline: The National Suicide Prevention [...] was given the opportunity to ask questions. Patient/Roll On Worker Name: Patient/Roll On Worker Signature: Relationship to Patient: Clinician/Hospital Roll On Worker Signature: Please Provide a Telephone Number Where You Can Be Reached: Is it Permissible To Leave a Message? Date: documented in this encounter Plan of Treatment Not on file documented as of this encounter Visit Diagnoses Not on filedocumented in this encounter
[2025-02-24 12:47] VITALS: BMI 26.7
[2025-02-24 13:01] LABS: Microscopic, Urine URINE MICROSCOPIC (MICROSCOPIC)
[2025-02-24 13:03] VITALS: BP 131/80; PULSE 81; RESP 17; TEMP 36.8; O2SAT 98; BMI 26.7
[2025-02-24 13:03] LABS: Bilirubin,Urine Negative (Negative); Color,Urine YELLOW (Yellow); Glucose,Urine (UA) Negative (Negative); Ketones,Urine Negative (Negative); Leukocyte Esterase,Urine Negative (Negative); PH,Urine 7.0 (5.0-8.5); Protein,Urine Negative (Negative); Specific Gravity, Urine 1.010 (1.005-1.030); Urobilinogen,Urine 0.2 EU/dl (0.2)
[2025-02-24 13:16] LABS: Bacteria,Urine Trace /lpf; Squamous Epithelial Cell,Urine Occasional #/hpf (0-5)
== END 2025-02-24 13:28 | disposition home or self-care (01) ==
LOC: OBOUT 12:44 → OB 12:46
PROVIDERS: Visit Provider Nurse Practitioner Obstetrics & Gynecology
DX: O16.3 Unspecified maternal hypertension, third trimester (principal); Z3A.37 37 weeks gestation of pregnancy
CPT/HCPCS: 59025; 81001; 99212; G0463

== ENCOUNTER 2025-02-27 04:55 | Inpatient (IN) | payer OTHER, SELFPAY ==
--- OUTSIDE RECORDS SUMMARY | 2025-02-27 04:59 | XMS_ITS | Encounter Summary ---
Author Organization [employer] ([place], [place], [place], [place]) Address [address] [place] [address] Care Team Providers Care Flight Control Specialist Name Role Phone Unavailable Primary Care Provider Unavailabl e Encounter Details Date Type Department Care Team (Late st Contact Info) Description 04/11/2021 Transcribed Document [facility] [place] [facility] [place] [address] ProviderJuan Carlos MD [facility] [place] [address] Social History Tobacco Use Types [...] : 3 - Urgent Tracking Group : [facility] ED [facility] Harleen Brown RN - 04/11/2021 10:10 EDT [...] caused by 2019 novel coronavirus (SNOMED CT :1984076067 ) Name of Problem: Disease caused by 2019 novel coronavirus ; Recorder: SYSTEM, SYSTEM; Confirmation: Confirmed ; Classification: Medical ; Code: [id number] ; Last Updated: 04/07/2021 22:55 EDT ; Life Cycle Date: 04/07/2021 ; Life Cycle Status: Active ; Vocabulary: SNOMED CT ; Comments: 04/07/2021 22:55 - SYSTEM, SYSTEM Problem added by a rule: [id number]. Diagnoses(Active) Vaginal bleeding Date: 04/11/2021 ; Diagnosis Type: Reason For Visit ; Confirmation: Complaint of ; Clinical Dx: Vaginal bleeding ; Classification: Medical ; Clinical Service: Non-Specified ; Code: PNED ; Probability: 0 ; Diagnosis Code: [id number] ED Height and Weight Height Source : Measured Height Entry Format : [place] Height, Feet : 5 ft(Converted to: 152 cm, 60 Inch) Height, Inches : 7 Inch(Converted to: 0 ft 7 Inch, 17.78 cm) Clinical Height : 170.18 cm Weight Source, ED : Standing scale Weight Entry Format : [place] Weight, Pounds : 128 lb Clinical Dosing Weight : 58.18 kg Body Surface Area (BSA) : 1.67 m2 Body Mass Index : 20.1 kg/m2 [place] Body Weight (IBW) : 61.16 kg Harleen Brown RN - 04/11/2021 10:10 EDT documented in this encounter Plan of Treatment Not on file documented as of this encounter Visit Diagnoses Not on filedocumented in this encounter
--- OUTSIDE RECORDS SUMMARY | 2025-02-27 04:59 | XMS_ITS | Encounter Summary ---
Author Organization [employer] ([place], [place], [place], [place]) Address [address] [place] [address] Care Team Providers Care Tourist Agent Name Role Phone Unavailable Primary Care Provider Unavailabl e Encounter Details Date Type Department Care Team (Late st Contact Info) Description 04/10/2021 Transcribed Document [facility] Radiology [address] [place] [address] Herbie Méndez MD [address] [place] [address] Dept. [place] [address] Social History Tobacco Use Types [...] 1-Time . Notes: spoke to multiple Ob physician non invasive cardiologist, with recomendations, patient remains stable, US update [...] a clinic referral service , just dial: [phone] (WELL) Our experts will provide you with [...]
--- OUTSIDE RECORDS SUMMARY | 2025-02-27 04:59 | XMS_ITS | Encounter Summary ---
Author Organization [employer] ([place], [place], [place], [place]) Address [address] [place] [address] Care Team Providers Care Energy Analyst Name Role Phone Unavailable Primary Care Provider Unavailabl e Encounter Details Date Type Department Care Team (Late st Contact Info) Description 04/11/2021 Transcribed Document [facility] [address] ProviderJuan Carlos MD [facility] [place], [place] [id number] Social History Tobacco Use Types Packs/Day Years [...] Barrier : None Primary Language : Polish Any Spiritual/Cultural Needs or Requests : No [...]
--- OUTSIDE RECORDS SUMMARY | 2025-02-27 04:59 | XMS_ITS | Encounter Summary ---
Author Organization [employer] ([place], [place], [place], [place]) Address [address] [place] [address] Care Team Providers Care Plant Operator Control Room Operator Name Role Phone Unavailable Primary Care Provider Unavailabl e Encounter Details Date Type Department Care Team (Late st Contact Info) Description 04/10/2021 Transcribed Document [facility] [place] [facility] [place] [address] ProviderJuan Carlos MD [facility] [place] [address] Social History Tobacco Use Types [...] EDT DCP GENERIC CODE Tracking Group : [facility] Tracking Acuity : 3 - Urgent [...] caused by 2019 novel coronavirus (SNOMED CT :3649251586 ) Name of Problem: Disease caused by 2019 novel coronavirus ; Recorder: SYSTEM, SYSTEM; Confirmation: Confirmed ; Classification: Medical ; Code: [id number] ; Last Updated: 04/07/2021 22:55 EDT ; Life Cycle Date: 04/07/2021 ; Life Cycle Status: Active ; Vocabulary: SNOMED CT ; Comments: 04/07/2021 22:55 - SYSTEM, SYSTEM Problem added by a rule: [id number]. Diagnoses(Active) Medication administration Date: 04/10/2021 ; Diagnosis Type: Reason For Visit ; Confirmation: Complaint of ; Clinical Dx: Medication administration ; Classification: Medical ; Clinical Service: Emergency medicine ; Code: PNED ; Probability: 0 ; Diagnosis Code: [id number] ED Height and Weight Height Source : Measured Height Entry Format : [place] Height, Feet : 5 ft(Converted to: 152 cm, 60 Inch) Height, Inches : 7 Inch(Converted to: 0 ft 7 Inch, 17.78 cm) Clinical Height : 170.18 cm Weight Source, ED : Standing scale Weight Entry Format : [place] Weight, Pounds : 128 lb Clinical Dosing Weight : 58.18 kg Body Surface Area (BSA) : 1.67 m2 Body Mass Index : 20.1 kg/m2 [place] Body Weight (IBW) : 61.16 kg KIYA [...]
--- OUTSIDE RECORDS SUMMARY | 2025-02-27 04:59 | XMS_ITS | Encounter Summary ---
Author Organization [employer] ([place], [place], [place], [place]) Address [address] [place] [address] Care Team Providers Care Bottle Packer Name Role Phone Unavailable Primary Care Provider Unavailabl e Encounter Details Date Type Department Care Team (Late st Contact Info) Description 04/07/2021 Transcribed Document [facility] [place] [facility] [address] ProviderJuan Carlos MD [address] [place] [address] Social History Tobacco Use Types Packs/Day [...] PNED ; Probability: 0 ; Diagnosis Code: [id number] ED Height and Weight Height Source : Measured Height Entry Format : [place] Height, Feet : 5 ft(Converted to: 152 cm, 60 Inch) Height, Inches : 7 Inch(Converted to: 0 ft 7 Inch, 17.78 cm) Clinical Height : 170.18 cm Weight Source, ED : Standing scale Weight Entry Format : [place] Weight, Pounds : 128 lb Clinical Dosing Weight : 58.18 kg Body Surface Area (BSA) : 1.67 m2 Body Mass Index : 20.1 kg/m2 [place] Body Weight (IBW) : 61.16 kg MARIANA ESTEVES RN - 04/07/2021 21:15 EDT documented in this encounter Plan of Treatment Not on file documented as of this encounter Visit Diagnoses Not on filedocumented in this encounter
--- OUTSIDE RECORDS SUMMARY | 2025-02-27 04:59 | XMS_ITS | Clinical Summary ---
Author Organization [employer] [facility] Address [address] [place] [phone] Phone Care Team Providers Care Archivist Military History Name Role Phone Unavailable Unavailable Conditions or Problems No information available. Medications No information available. Medications Administered No information available. Allergies, Adverse Reactions, Alerts No information available. Results No information available. Plan of Care No information available. Procedures No information available. Vital Signs No information available. Immunizations No information available. Advance Directives No information available.
--- OUTSIDE RECORDS SUMMARY | 2025-02-27 04:59 | XMS_ITS | Encounter Summary ---
Author Organization [employer] ([place], [place], [place], [place]) Address [address] [place] [address] Care Team Providers Care Outside Rigger Name Role Phone Unavailable Primary Care Provider Unavailabl e Encounter Details Date Type Department Care Team (Late st Contact Info) Description 04/11/2021 Transcribed Document [facility] [place] [facility] [place] [address] ProviderJuan Carlos MD [facility] [place] [address] Social History Tobacco Use Types [...] 04/11/2021 14:35 EDT Electronically signed by Chana [facility] Conversion Requisition Approver Cerner at 11/21/2022 11:36 PM CDT documented in this encounter Plan of Treatment Not on file documented as of this encounter Visit Diagnoses Not on filedocumented in this encounter
--- OUTSIDE RECORDS SUMMARY | 2025-02-27 04:59 | XMS_ITS | Referral Summary ---
Author Organization [employer] ([place], [place], [place], [place]) Address [address] [place] [address] Care Team Providers Care Canvas Goods Supervisor Name Role Phone Unavailable Primary Care [...]
--- OUTSIDE RECORDS SUMMARY | 2025-02-27 04:59 | XMS_ITS | Encounter Summary ---
Author Organization [employer] ([place], [place], [place], [place]) Address [address] [place] [address] Care Team Providers Care Associate Store Leader Name Role Phone Unavailable Primary Care Provider Unavailabl e Encounter Details Date Type Department Care Team (Late st Contact Info) Description 04/10/2021 Transcribed Document [facility] [address] [place] [address] Herbie Srivastava MD [address] [place] [address] Dept. [place] [address] Social History Tobacco Use Types [...] 9:09 AM EDT Electronically signed by Chana [facility] Conversion Button Grader Cerner at 11/21/2022 11:49 PM CDT documented in this encounter Plan of Treatment Not on file documented as of this encounter Visit Diagnoses Not on filedocumented in this encounter
--- OUTSIDE RECORDS SUMMARY | 2025-02-27 04:59 | XMS_ITS | Encounter Summary ---
Author Organization [employer] ([place], [place], [place], [place]) Address [address] [place] [address] Care Team Providers Care Hotel Manager Name Role Phone Unavailable Primary Care Provider Unavailabl e Encounter Details Date Type Department Care Team (Late st Contact Info) Description 04/08/2021 Transcribed Document [facility] [place] [facility] [place] [address] ProviderJuan Carlos MD [address] [place] [address] Social History Tobacco Use Types [...]
--- OUTSIDE RECORDS SUMMARY | 2025-02-27 04:59 | XMS_ITS | Clinical Summary ---
Author Organization [facility] Address [address] [place] [address] Care Team Providers Care Operators School Manager Name Role Phone Provider, No Known Primary [...] Description 12/12/2024 11:15 AM EDT Office Visit [facility] [address] [facility] [address] [place] [address] Yee Purdy MD Previous delivery affecting (Primary Dx) 12/12/2024 11:15 AM EDT - 12/12/2024 11:59 PM EDT Hospital Encounter [facility] US PER DIAG CTR [address] [place] [address] Nav Hassan MD Subchorionic hematoma, [...] Procedure Name Priority Date/Time Associated Diagnosis Comments [facility] Routine 12/12/2024 11:54 AM EDT Subchorionic hematoma, antepartum, single or unspecified fetus Previous delivery affecting , unspecified gestational age from Last 3 Months Results * [facility] (12/12/2024 11:54 AM EDT) Anatomical Region Laterality Modality Ultrasound 12/12/2024 11:4 9 AM EDT Narrative 12/15/2024 9:28 PM EDT PAT NAME: LIBERTAD DE LEON [facility] REC#: [id number] DA: [id number] PAT GEND: F PAT TYPE: O EXAM HUA: [id number] REF PHYS CARLOS MCCLELLAN Comparison Studies The [...] EFW (oz) 3 oz EFW by: Hadlock (KRG-SV-NX-FL) Extended Cav. septi pel. tr 4.8 mm [...] Normal Heart / Thorax 3-vessel view: Normal 2-aoyauu-ssknyew view: normal Stomach: Appears normal Kidneys: Appears [...] up at your discretion Coding ======= Description: 33146-41 Follow Up Business Services Representative: Isabel Mckay RDMS Physician: Yee Purdy MD, FACOG Electronically signed by: Yee Purdy MD, FACOG at: 21:28 Procedure Note Yee Purdy MD - 12/15/2024 PAT NAME: LIBERTAD DE LEON [facility] REC#: [id number] DA: 2000 PAT GEND: F PAT TYPE: O EXAM HUA: [id number] REF PHYS CARLOS MCCLELLAN Comparison Studies The findings of this study are compared to the prior ultrasound studydated 10/30/24 Patient Status Outpatient Indication ======== Follow up placental bucio. Previous c/s x 1. Maternal Assessment Zxqgke958 cm Height (ft)5 ft Height (in)7 in Jyglrc96 kg Weight (lb)153 lb BMI24.01 kg/m Method ======= Transabdominal ultrasound examination. View: Adequate view ========= Smith . Number of fetuses: 1 Dating ====== Method of dating:based on stated ROBB GA by prior freswdlrzx82 w + 1 d ROBB by prior assessment:03/12/2025 Ultrasound examination on:12/12/2024 GA by U/S based upon:AC, BPD, Femur, HC GA by U/S27 w + 3 d ROBB by U/S:03/10/2025 Previous dating:based on stated ROBB, selected on 10/30/2024 Agreed ROBB of previous datin03/12/2025 Assigned:based on stated ROBB, selected on 12/12/2024 Assigned GA27 w + 1 d Assigned ROBB:03/12/2025 aymlxy734 d Biometry Standard BPD70.1 mm 28w 1d 73% Hadlock OFD91.1 mm 29w 3d 96% Lalitha HC260.1 mm 28w 2d 60% Hadlock Cerebellum tr33.0 mm 28w 0d 90% Hill AC219.8 mm 26w 3d 21% Hadlock Femur50.1 mm 27w 0d 29% Hadlock Hxxcyss41.9 mm 27w 5d 60% Lalitha HC / AC1.18 WYF896 g 26w 4d 29% Hadlock EFW (lb)2 lb EFW (oz)3 oz EFW by:Hadlock (NBS-WC-EN-FL) Extended Cav. septi pel. tr4.8 mm CM6.1 mm 35% Nicolaides Head / Face / Neck Cephalic index0.77 31% Nicolaides Extremities / Bony Struc FL / BPD0.71 FL / HC0.19 FL / AC0.23 Other Structures ZTW301 bpm General Evaluation Cardiac activity present. FHR [...] LVOT view:Normal Heart / Thorax 3-vessel view:Normal 7-xclxut-uqqutro view:normal Stomach:Appears normal Kidneys:Appears normal Bladder:Appears normal Gender:female Wants to know gender:yes Maternal Structures Uterus / Cervix Cervical dpkuez32.1 mm Doppler Arterial Umbilical A PI1.03 51% [...] Follow up at your discretion Coding ======= Description:86981-19 Follow Up Business Services Representative: Isabel Mckay RDTN Physician: Yee Purdy MD, FACOG Electronically signed by: Yee Purdy MD, FACOG at: 1021:28 us Nav Hassan MD IMG US ORDERABLES Final Re sult from Last 3 Months Insurance [facility] PL[facility] Care Teams Operators School Manager Relationship Specialty Start Date End Date Provider, No Known [facility] [place] [address] PCP - General 10/26/24
--- OUTSIDE RECORDS SUMMARY | 2025-02-27 04:59 | XMS_ITS | Clinical Summary ---
Author Organization [employer] ([place], [place], [place], [place]) Address [address] [place] [address] Care Team Providers Care Obgyn Nurse Name Role Phone Unavailable Primary Care [...]
--- OUTSIDE RECORDS SUMMARY | 2025-02-27 04:59 | XMS_ITS | Encounter Summary ---
Author Organization [employer] ([place], [place], [place], [place]) Address [address] [place] [address] Care Team Providers Care Test Conductor Name Role Phone Unavailable Primary Care Provider Unavailabl e Encounter Details Date Type Department Care Team (Late st Contact Info) Description 04/10/2021 Transcribed Document [facility] [place] [address] [place] [address] ProviderJuan Carlos MD [address] [place], [place] [address] Social History Tobacco Use Types Packs/Day Years [...]
--- OUTSIDE RECORDS SUMMARY | 2025-02-27 04:59 | XMS_ITS | Encounter Summary ---
Author Organization [employer] ([place], [place], [place], [place]) Address [address] [place] [address] Care Team Providers Care Ready Mix Truck Driver Name Role Phone Unavailable Primary Care Provider Unavailabl e Encounter Details Date Type Department Care Team (Late st Contact Info) Description 04/07/2021 Transcribed Document [facility] [place] [address] ProviderJuan Carlos MD [address] [place] [address] Social History Tobacco Use Types [...] transitioning her care from her OB at [facility] her sleep as to a highway construction inspector at . Denies any abdominal pain or [...] COVID-19: What Your Test Results Mean - [facility]. Follow up with: Follow up with primary care provider Within 2 to 3 days Call for follow up appointment. Return to the ER for any new or worsening symptoms as discussed, especially difficulty breathing or low O2 sat below 90%. Drink plenty of fluids and rest. You may take Tylenol as needed. Follow-up with your GROCERY DEPARTMENT MANAGER.; , Follow up with primary care provider Within 2 to 3 days Call for follow up appointment. Return to the ER for any new or worsening symptoms as discussed, especially difficulty breathing or low O2 sat below 90%. Drink plenty of fluids and rest. You may take Tylenol as needed. Follow-up with your GROCERY DEPARTMENT MANAGER.. Counseled: Patient, Regarding diagnosis, Regarding diagnostic results, Regarding treatment plan, Patient indicated understanding of instructions. documented in this encounter Plan of Treatment Not on file documented as of this encounter Visit Diagnoses Not on filedocumented in this encounter
--- OUTSIDE RECORDS SUMMARY | 2025-02-27 04:59 | XMS_ITS | Encounter Summary ---
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 This began yesterday and has continued today. She denies any abdominal pain or pelvic cramping. Also denies fever, nausea/vomiting, vaginal discharge. Patient tested positive for COVID-19 4 days ago and yesterday received the monoclonal antibody infusion. She currently follows with an PATHOLOGY SECRETARY/TRANSCRIPTIONIST at [facility], however is in the process of transitioning [...] April 11, 2021 14:10 EDT Encounter info: [id number], BEREKET Diaz [facility], Emergency Room, 04/11/2021 - 04/11/2021 . [...] discussed strict pelvic rest and follow-up with PATHOLOGY SECRETARY/TRANSCRIPTIONIST. Patient voices understanding and agreement with plan. [...] pelvic rest as discussed. Follow-up with your PATHOLOGY SECRETARY/TRANSCRIPTIONIST in 2 days for repeat assessment., Follow up with primary care provider Within 2 to 3 days Call for follow up appointment. Return to the ER for any new or worsening symptoms as discussed, especially fever, persistent pelvic pain, vaginal bleeding greater than 2 pads/hour. Recommend pelvic rest as discussed. Follow-up with your PATHOLOGY SECRETARY/TRANSCRIPTIONIST in 2 days for repeat assessment., Follow up with primary care provider Within 2 to 3 days Call for follow up appointment. Return to the ER for any new or worsening symptoms as discussed, especially fever, persistent pelvic pain, vaginal bleeding greater than 2 pads/hour. Recommend pelvic rest as discussed. Follow-up with your PATHOLOGY SECRETARY/TRANSCRIPTIONIST in 2 days for repeat assessment.. Counseled: Patient, Regarding diagnosis, Regarding diagnostic results, Regarding treatment plan, Patient indicated understanding of instructions. documented in this encounter Plan of Treatment Not on file documented as of this encounter Visit Diagnoses Not on filedocumented in this encounter
--- OUTSIDE RECORDS SUMMARY | 2025-02-27 04:59 | XMS_ITS | Encounter Summary ---
Author Organization [employer] ([place], [place], [place], [place]) Address [address] [place] [address] Care Team Providers Care Life Scientist Name Role Phone Unavailable Primary Care Provider Unavailabl e Encounter Details Date Type Department Care Team (Late st Contact Info) Description 04/10/2021 Transcribed Document [facility] [place] Medicine [facility] [place] [address] ProviderJuan Carlos MD [address] [place] [address] Social History Tobacco Use Types Packs/Day Years Used Date Smoking Tobacco: Never Assessed Comments Unknown Sex and Gender Information Value Date Recorded Sex Assigned at Female 02/02/2022 8:54 PM CDT Legal Sex Female 8:54 PM CDT Gender Identity Female 02/02/2022 8:54 PM CDT Sexual Orientation Not on file documented as of this encounter Miscellaneous Notes * Cerner Conversion Note - Jua nCarlos Cavazos MD - 04/10/2021 8:46 AM CDT [place] [id number] LIBERTAD DE LEONNE :2000 Visit Time:04/10/2021 Your [...] or High Risk [phone] [address]: [address] [place] [id number]- [facility] (1) Follow Up with For a clinic referral service , just dial: [phone] (WELL) Our experts will provide you with [...] water are not available, use alcohol-based hand invasive manager. ??? Avoid touching your mouth, face, [...] pump parts after expressing milk. Follow the grounds supervisor's instructions to clean and disinfect all pump [...] (CDC): www.cdc.gov/coronavirus/2019-ncov/ ??? World Health Organization (WHO): www.who.int/news-room/q-a-detail/v-p-ru-fwikq-52-bqaluygnh-aqzgrcntlr-arc-rxwg stfeeding ??? [place] [employer] of Obstetricians and Gynecologists (ACOG): www.acog.org/patient-resources/faqs//osxxvordlky-hdojrrmkw-xee-breast feeding Questions to ask your health care [...] provider. Document Revised: 07/25/2020 Document Reviewed: 07/25/2020 [facility] Patient Education ?? 2020 [employer]. 10 Things You Can Do to Manage [...] clean your hands with an alcohol-based hand invasive manager that contains at least 60% alcohol. [...] Reviewed: 07/10/2020 Elsevier Patient Education ?? 2020 [facility] Inc. Emergency Awareness and Preventative Care STROKE [...] Assistance with quitting is available by contacting 4-073-ZEIPNOW. This is a free resource providing counseling, support, and referral. Or you may contact your personal physician. thredUP Suicide Prevention Lifeline: The National Suicide Prevention [...] was given the opportunity to ask questions. Patient/Alterations Sewer Name: Patient/Alterations Sewer Signature: Relationship to Patient: Clinician/Hospital Alterations Sewer Signature: Please Provide a Telephone Number Where You Can Be Reached: Is it Permissible To Leave a Message? Date: documented in this encounter Plan of Treatment Not on file documented as of this encounter Visit Diagnoses Not on filedocumented in this encounter
--- OUTSIDE RECORDS SUMMARY | 2025-02-27 04:59 | XMS_ITS | Encounter Summary ---
Author Organization [employer] ([place], [place], [place], [place]) Address [address] [place] [address] Care Team Providers Care Orthopedic Assistant Name Role Phone Unavailable Primary Care Provider Unavailabl e Encounter Details Date Type Department Care Team (Late st Contact Info) Description 04/07/2021 Transcribed Document [facility] [place] [address] [place] [address] ProviderJuan Carlos MD [address] [place], [place] [id number] Social History Tobacco Use Types Packs/Day Years [...] Historical ProviderMD - 04/07/2021 7:59 PM CDT Centre Suicide Severity Rating Scale (C-SSRS) Entered On: 04/08/2021 0:17 EDT Performed On: 04/08/2021 0:16 EDT by MARIANA ESTEVES RN Centre Suicide Severity Rating Scale (C-SSRS) CSSRS Past [...]
--- OUTSIDE RECORDS SUMMARY | 2025-02-27 04:59 | XMS_ITS | Encounter Summary ---
Author Organization [employer] ([place], [place], [place], [place]) Address [address] [place] [address] Care Team Providers Care Rag Boiler Name Role Phone Unavailable Primary Care Provider Unavailabl e Encounter Details Date Type Department Care Team (Late st Contact Info) Description 04/07/2021 Transcribed Document [facility] [place] [address] [place] [address] ProviderJuan Carlos MD [address] [place], [place] [id number] Social History Tobacco Use Types Packs/Day Years [...] EDT Electronically signed by Brian Zayas Conversion Esthetician Permanent Makeup Artist Cerner at 11/21/2022 11:47 PM CDT documented in this encounter Plan of Treatment Not on file documented as of this encounter Visit Diagnoses Not on filedocumented in this encounter
--- OUTSIDE RECORDS SUMMARY | 2025-02-27 04:59 | XMS_ITS | Encounter Summary ---
Author Organization [employer] ([place], [place], [place], [place]) Address [address] [place] [address] Care Team Providers Care Professor Sculpture Name Role Phone Unavailable Primary Care Provider Unavailabl e Encounter Details Date Type Department Care Team (Late st Contact Info) Description 04/11/2021 Transcribed Document [facility] [place] [address] [place] [address] ProviderJuan Carlos MD [address] [place], [place] [id number] Social History Tobacco Use Types Packs/Day Years [...]
--- OUTSIDE RECORDS SUMMARY | 2025-02-27 04:59 | XMS_ITS | Encounter Summary ---
Author Organization [employer] ([place], [place], [place], [place]) Address [address] [place] [address] Care Team Providers Care Dynamometer Tuner Name Role Phone Unavailable Primary Care Provider Unavailabl e Encounter Details Date Type Department Care Team (Late st Contact Info) Description 04/10/2021 Transcribed Document [facility] [place] [facility] [place] [address] ProviderJuan Carlos MD [address] [place], [place] [id number] Social History Tobacco Use Types Packs/Day Years [...] Historical ProviderMD - 04/10/2021 5:27 AM CDT Door Suicide Severity Rating Scale (C-SSRS) Entered On: 04/10/2021 6:47 EDT Performed On: 04/10/2021 6:46 EDT by Nasreen Aldridge RN-PATIENT CARE BEDSIDE NON-EXEMPT Door Suicide Severity Rating Scale (C-SSRS) CSSRS Past [...]
--- OUTSIDE RECORDS SUMMARY | 2025-02-27 04:59 | XMS_ITS | Encounter Summary ---
Author Organization [employer] ([place], [place], [place], [place]) Address [address] [place] [address] Care Team Providers Care Resource Development Manager Name Role Phone Unavailable Primary Care Provider Unavailabl e Encounter Details Date Type Department Care Team (Late st Contact Info) Description 04/08/2021 Transcribed Document [facility] [place] [facility] [place] [address] ProviderJuan Carlos MD [facility] [place], [place] [id number] Social History Tobacco Use Types Packs/Day Years [...] 04/08/2021 0:17 EDT Electronically signed by Chana [facility] Conversion Scientific Specialist Cerner at 11/21/2022 11:44 PM CDT documented in this encounter Plan of Treatment Not on file documented as of this encounter Visit Diagnoses Not on filedocumented in this encounter
--- OUTSIDE RECORDS SUMMARY | 2025-02-27 04:59 | XMS_ITS | Encounter Summary ---
Author Organization [employer] ([place], [place], [place], [place]) Address [address] [place] [address] Care Team Providers Care Category Analyst Name Role Phone Unavailable Primary Care Provider Unavailabl e Encounter Details Date Type Department Care Team (Late st Contact Info) Description 04/07/2021 Transcribed Document [facility] [place] [facility] [place] [address] ProviderJuan Carlos MD [address] [place] [address] Social History Tobacco Use Types [...] CDT Electronically signed by Chana [facility] Conversion Pie Bakery Laborer Martinener at 11/21/2022 11:36 PM CDT documented in this encounter Plan of Treatment Not on file documented as of this encounter Visit Diagnoses Not on filedocumented in this encounter
--- OUTSIDE RECORDS SUMMARY | 2025-02-27 04:59 | XMS_ITS | Encounter Summary ---
Author Organization [employer] ([place], [place], [place], [place]) Address [address] [place] [address] Care Team Providers Care Applications Consultant Name Role Phone Unavailable Primary Care Provider Unavailabl e Encounter Details Date Type Department Care Team (Late st Contact Info) Description 04/10/2021 Transcribed Document [facility] [place] [facility] [address] ProviderJuan Carlos MD [facility] [place] [address] Social History Tobacco Use Types [...]
--- OUTSIDE RECORDS SUMMARY | 2025-02-27 04:59 | XMS_ITS | Encounter Summary ---
Author Organization [employer] ([place], [place], [place], [place]) Address [address] [place] [address] Care Team Providers Care Commercial Real Estate Sales Manager Name Role Phone Unavailable Primary Care Provider Unavailabl e Encounter Details Date Type Department Care Team (Late st Contact Info) Description 04/10/2021 Transcribed Document [facility] [place] [facility] [place] [address] ProviderJuan Carlos MD [address] [place] [address] Social History Tobacco Use Types [...] Cavazos MD - 04/10/2021 8:45 AM CDT [place] [id number] LIBERTAD DE LEONNE :2000 Visit Time:04/10/2021 Your [...] or High Risk [phone] [address]: [address] [place] [id number]- [facility] (1) Follow Up with For a clinic referral service , just dial: [phone] (WELL) Our experts will provide you with [...] water are not available, use alcohol-based hand yard laborer. ??? Avoid touching your mouth, face, eyes, [...] pump parts after expressing milk. Follow the childbirth and infant care teacher's instructions to clean and disinfect all pump [...] (CDC): www.cdc.gov/coronavirus/2019-ncov/ ??? World Health Organization (WHO): www.who.int/news-room/q-a-detail/k-z-ae-iwvxy-15-xdoasresk-npyzuykfzy-eos-uyhu stfeeding ??? [place] College of Obstetricians and Gynecologists (ACOG): www.acog.org/patient-resources/faqs//dapiizydxnn-xekihfcvk-udm-breast feeding Questions to ask your health care [...] provider. Document Revised: 07/25/2020 Document Reviewed: 07/25/2020 [employer] Patient Education ?? 2020 [employer]. 10 Things You Can Do to Manage [...] clean your hands with an alcohol-based hand yard laborer that contains at least 60% alcohol. 8. [...] Reviewed: 07/10/2020 Elsevier Patient Education ?? 2020 [employer] Inc. Emergency Awareness and Preventative Care STROKE [...] Assistance with quitting is available by contacting 9-977-CSUKNOW. This is a free resource providing counseling, support, and referral. Or you may contact your personal physician. [employer] Suicide Prevention Lifeline: The National Suicide Prevention [...] was given the opportunity to ask questions. Patient/Mat Packer Name: Patient/Mat Packer Signature: Relationship to Patient: Clinician/Hospital Mat Packer Signature: Please Provide a Telephone Number Where You Can Be Reached: Is it Permissible To Leave a Message? Date: documented in this encounter Plan of Treatment Not on file documented as of this encounter Visit Diagnoses Not on filedocumented in this encounter
--- OUTSIDE RECORDS SUMMARY | 2025-02-27 04:59 | XMS_ITS | Encounter Summary ---
Author Organization [employer] ([place], [place], [place], [place]) Address [address] [place] [address] Care Team Providers Care Assistant Producer Name Role Phone Unavailable Primary Care Provider Unavailabl e Encounter Details Date Type Department Care Team (Late st Contact Info) Description 04/11/2021 Transcribed Document [facility] [place] [facility] [place] [address] ProviderJuan Carlos MD [address] [place] [address] Social History Tobacco Use Types [...] 12:12 PM CDT Electronically signed by Chana [facility] Conversion Machine Clerical Verifier Yu at 11/21/2022 11:35 PM CDT documented in this encounter Plan of Treatment Not on file documented as of this encounter Visit Diagnoses Not on filedocumented in this encounter
--- OUTSIDE RECORDS SUMMARY | 2025-02-27 04:59 | XMS_ITS | Encounter Summary ---
Author Organization [employer] ([place], [place], [place], [place]) Address [address] [place] [address] Care Team Providers Care Garden Consultant Name Role Phone Unavailable Primary Care Provider Unavailabl e Encounter Details Date Type Department Care Team (Late st Contact Info) Description 04/11/2021 Transcribed Document [facility] [place] Family Medicine [address] [place] [address] ProviderJuan Carlos MD [address] [place], [place] [address] Social History Tobacco Use Types Packs/Day Years [...] Historical ProviderMD - 04/11/2021 9:48 AM CDT [place] Suicide Severity Rating Scale (C-SSRS) Entered On: 04/11/2021 12:05 EDT Performed On: 04/11/2021 12:04 EDT by Lacey Chau RN [place] Suicide Severity Rating Scale (C-SSRS) CSSRS Past Month Wish to be : No CSSRS Past Month Suicidal Thoughts : No CSSRS Lifetime Suicide Behavior : No Suicide Severity Rating Score : 0 Suicide Severity Rating : No Additional Care Required at this time Lacey Chau RN - 04/11/2021 12:04 EDT Electronically signed by Chana [facility] Conversion Cost Recorder Cerner at 11/21/2022 11:45 PM CDT documented in this encounter Plan of Treatment Not on file documented as of this encounter Visit Diagnoses Not on filedocumented in this encounter
--- OUTSIDE RECORDS SUMMARY | 2025-02-27 04:59 | XMS_ITS | Encounter Summary ---
Author Organization [employer] ([place], [place], [place], [place]) Address [address] [place] [address] Care Team Providers Care Engrosser Name Role Phone Unavailable Primary Care Provider Unavailabl e Encounter Details Date Type Department Care Team (Late st Contact Info) Description 04/08/2021 Transcribed Document [facility] [place] [facility] [place] [address] ProviderJuan Carlos MD [address] [place] [address] Social History Tobacco Use Types [...] Carlos ProviderMD - 04/08/2021 12:05 AM CDT [place] [id number] LIBERTAD WEBBNE :2000 Visit Time:04/07/2021 Your Visit [...] take Tylenol as needed. Follow-up with your COMPO CONVEYOR OPERATOR. Allergies No Known Medication Allergies Immunizations This [...] areas. Get rest and stay hydrated. Take bxoy-khi-hwhubyh medicines, such as acetaminophen, to help you [...] provider. Document Revised: 07/10/2020 Document Reviewed: 07/10/2020 ElseSavveo Patient Education ?? 2020 [employer]. COVID-19: How to Protect Yourself and Others Know how it spreads ??? There is currently no vaccine to prevent coronavirus disease 2019 (COVID-19). ??? The best way to prevent illness is to avoid being exposed to this virus. ??? The virus is thought to spread mainly from oqedzf-oa-soivbj. ? Between people who are in close [...] are not readily available, use a hand tie in hand that contains at least 60% alcohol. Cover [...] are at higher risk of getting very sick.www.cdc.gov/coronavirus/2019-ncov/kvhh-opvzi-tgwtqgcqgln/huhxuy-sh-oriizr -risk.html Cover your mouth and nose with [...] available, clean your hands with a hand tie in hand that contains at least 60% alcohol. Clean and disinfect ??? Clean AND disinfect frequently touched surfaces daily. This includes tables, doorknobs, light switches, countertops, handles, desks, phones, keyboards, toilets, faucets, and sinks. www.cdc.gov/coronavirus/2019-ncov/bdepcvp-bxwtoqe-mnzs/hngzpacaeron-fclz-rwic. html ??? If surfaces are dirty, clean [...] Reviewed: 02/14/2020 Elsevier Patient Education ?? 2020 [employer]. COVID-19 Frequently Asked Questions COVID-19 (coronavirus disease) [...] the coronavirus come from? In July 2019, [place] told the World Health Organization (WHO) about several cases of lung disease (human respiratory illness). These cases were linked to an open seafood and livestock market in the [facility]. The link to the seafood [...] and virus naming ??? World Health Organization: www.who.int/emergencies/diseases/euhww-xcyguogowli-9490/technical-guidance Who is at risk for complications from [...] water are not available, use alcohol-based hand tie in hand. ??? Avoid touching your face, mouth, nose, [...] (CDC): www.cdc.gov/coronavirus/2019-ncov/travelers ??? World Health Organization (WHO): www.who.int/emergencies/diseases/vgvvl-smctpjhdlgv-0393/travel-advice What should I do if I am sick? General instructions to stop the spread of infection ??? Wash your hands often with soap and water for at least 20 seconds. If soap and water are not available, use alcohol-based hand tie in hand. ??? Cough or sneeze into a tissue, [...] in hot, soapy water or use a slitter processed film. Air-dry your dishes. ??? Wash laundry in [...] Organization (WHO) ??? Information and news updates: www.who.int/emergencies/diseases/ayuoo-cgihysisodk-0487 ??? Coronavirus health topic: www.who.int/health-topics/coronavirus ??? Questions and answers on COVID-19: www.who.int/news-room/q-a-detail/n-k-kpzulbcmegbiz ??? Global tracker: PromoteSocial.bettercodes.org [place] Academy [employer] Pediatrics (AAP) ??? Information for families: www.healthychildren.org/Yoruba/health-issues/conditions/chest-lungs/Pages/201 1-Oxwhr-Jyxgeeizkog.aspx The coronavirus situation is changing rapidly. Check [...] provider. Document Revised: 07/22/2020 Document Reviewed: 07/22/2020 [employer] Patient Education ?? 2020 [employer] Inc. Emergency Awareness and Preventative Care STROKE [...] Assistance with quitting is available by contacting 0-874-DSPJNOW. This is a free resource providing counseling, support, and referral. Or you may contact your personal physician. [employer] Suicide Prevention Lifeline: The National Suicide Prevention [...] was given the opportunity to ask questions. Patient/Recoater Name: Patient/Recoater Signature: Relationship to Patient: Clinician/Hospital Recoater Signature: Please Provide a Telephone Number Where You Can Be Reached: Is it Permissible To Leave a Message? Date: Electronically signed by [facility] Conversion Sheep Farm Manager Yu at 11/21/2022 11:32 PM CDT documented in this encounter Plan of Treatment Not on file documented as of this encounter Visit Diagnoses Not on filedocumented in this encounter
--- OUTSIDE RECORDS SUMMARY | 2025-02-27 04:59 | XMS_ITS | Encounter Summary ---
Author Organization [employer] ([place], [place], [place], [place]) Address [address] [place] [address] Care Team Providers Care Drawing Tracer Name Role Phone Unavailable Primary Care Provider Unavailabl e Encounter Details Date Type Department Care Team (Late st Contact Info) Description 04/07/2021 Transcribed Document [facility] [place] [facility] [place] [address] ProviderJuan Carlos MD [facility] [place], [place] [id number] Social History Tobacco Use Types Packs/Day Years [...] Performed On: 04/08/2021 0:16 EDT by MARIANA ESTVEES RN ED Quick Look Assessment Level of [...]
--- OUTSIDE RECORDS SUMMARY | 2025-02-27 04:59 | XMS_ITS | Encounter Summary ---
Author Organization [employer] ([place], [place], [place], [place]) Address [address] [place] [address] Care Team Providers Care Water Filtration Technician Name Role Phone Unavailable Primary Care Provider Unavailabl e Encounter Details Date Type Department Care Team (Late st Contact Info) Description 04/11/2021 Transcribed Document [facility] [place] [facility] [place] [address] ProviderJuan Carlos MD [address] [place] [address] Social History Tobacco Use Types [...]
--- OUTSIDE RECORDS SUMMARY | 2025-02-27 04:59 | XMS_ITS | Encounter Summary ---
Author Organization [employer] ([place], [place], [place], [place]) Address [address] [place] [address] Care Team Providers Care Advertising Vice President Name Role Phone Unavailable Primary Care Provider Unavailabl e Encounter Details Date Type Department Care Team (Late st Contact Info) Description 04/11/2021 Transcribed Document [facility] Family Medicine [place] [address] ProviderJuan Carlos MD [address] [place] [address] Social History Tobacco Use Types [...] Carlos ProviderMD - 04/11/2021 2:23 PM CDT [place] [id number] LIBERTAD WEBBNE :2000 Visit Time:04/11/2021 Your Visit [...] pelvic rest as discussed. Follow-up with your SENIOR COMMUNICATIONS SPECIALIST in 2 days for repeat assessment. Allergies [...] provider. Document Revised: 08/31/2018 Document Reviewed: 10/21/2017 [employer] Patient Education ?? 2020 [employer] Vaginal Bleeding During , First [...] this is safe. General instructions ??? Take [id number] and prescription medicines only as told by [...] provider. Document Revised: 11/13/2019 Document Reviewed: 10/27/2017 [employer] Patient Education ?? 2020 [employer] Subchorionic Hematoma A subchorionic hematoma [...] Reviewed: 09/20/2017 [employer] Patient Education ?? 2020 [employer] Emergency Awareness and Preventative Care [...] Assistance with quitting is available by contacting 9-278-MEIYNOW. This is a free resource providing counseling, support, and referral. Or you may contact your personal physician. [place] Suicide Prevention Lifeline: The National Suicide Prevention [...] was given the opportunity to ask questions. Patient/Director Prospect Name: Patient/Director Prospect Signature: Relationship to Patient: Clinician/Hospital Director Prospect Signature: Please Provide a Telephone Number Where You Can Be Reached: Is it Permissible To Leave a Message? Date: documented in this encounter Plan of Treatment Not on file documented as of this encounter Visit Diagnoses Not on filedocumented in this encounter
--- OUTSIDE RECORDS SUMMARY | 2025-02-27 04:59 | XMS_ITS | Encounter Summary ---
Author Organization [employer] ([place], [place], [place], [place]) Address [address] [place] [address] Care Team Providers Care Centerpuncher Name Role Phone Unavailable Primary Care Provider Unavailabl e Encounter Details Date Type Department Care Team (Late st Contact Info) Description 04/11/2021 Transcribed Document [facility] Family Medicine [address] [place] [address] ProviderJuan Carlos MD [address] [place], [place] [id number] Social History Tobacco Use Types Packs/Day Years [...]
--- OUTSIDE RECORDS SUMMARY | 2025-02-27 05:00 | XMS_ITS | Encounter Summary ---
Author Organization [employer] ([place], [place], [place], [place]) Address [address] [place] [address] Care Team Providers Care Defect Cutter Name Role Phone Unavailable Primary Care Provider Unavailabl e Encounter Details Date Type Department Care Team (Late st Contact Info) Description 04/10/2021 Transcribed Document [facility] [place] Family Medicine [facility] [place] [address] ProviderJuan Carlos MD [facility] [place], [place] [id number] Social History Tobacco Use Types Packs/Day Years [...] (Last Updated: 04/10/2021 05:46:12 EDT by KIYA GURERA RN) Alcohol: Alcohol Use History No. Use [...]
--- OUTSIDE RECORDS SUMMARY | 2025-02-27 05:00 | XMS_ITS | Clinical Summary ---
Author Organization [facility] Address [address] [place] [address] Care Team Providers Care Financial Health Counselor Name Role Phone Krytsen Burt MD Primary Care Provider [phone] Allergies No known active allergies Medications pseudoephedrine [...] (10/02/2021): Added automatically from request for surgery [id number] Immunizations Immunization Administration Dates Next Due Tdap [...] place to sleep or slept in a retirement (including now)? No 03/27/2024 [place] Depression Scale Answer Date Recorded [place] Depression Scale Total 8 12/07/2021 The thought [...] 12/01/2023 11/30/2022, 11/30/2022, 07/15/2022, Additional history exists [id number] Vaccine ( - season) 2024 UKY- SDOH [...] Detected Not Detected 12/02/2022 9:37 AM EDT [facility] Swab Endocervical structure / Unknown Non-blood Collection / Unknown 11/30/2022 3:09 PM EDT 11/30/2022 4:07 PM EDT Narrative [facility] - 12/02/2022 9:37 AM EDT This test is performed by the enercast m2000 instrument for Real Time PCR C. trachomatis and N. gonorrhea. This test is FDA approved for use with endocervical, vaginal, and urine specimens. This test is used for clinical purposes. It should not be regarded as invesigational or for research. The [facility] Clinical Microbiology Laboratory is certified under the Clinical Laboratory Improvement Amendments of 1988 (CLIA-88) as qualified to perform high complexity clinical laboratory testing. us Rhea Ramos MD LAB MICROBIOLOGY - GENERAL ORDERABLES Final Result [facility] [address] [place] [address] * Pap Test (11/30/2022 3:09 PM EDT) Case Report Cytology Case: [id number] Authorizing Provider: Rhea Ramos MD Collected: 11/30/2022 1509 Ordering Location: Medical Office Building Received: 11/30/2022 [facility] Obstetrics and Gynecology First Screen: Shayy Gordon Specimen: ThinPrep Pap Test, Liquid-Based Cervical/Vaginal, CERVICAL/VAGINAL 12/06/2022 3:06 PM EDT [facility] Interpretation NEGATIVE FOR INTRAEPITHELIAL LESION OR MALIGNANCY 12/06/2022 3:06 PM EDT [facility] at 1506 EDT Specimen Adequacy Satisfactory for evaluation; endocervical/villanueva sformation zone component present. Slide imaged by the ThinPrep Imaging system and selected 22 corado reviewed then full manual screening. 12/06/2022 3:06 PM EDT [facility] Cervical cytology is a [...] results is suggested (please call Microbiology at [phone] for results). 12/06/2022 3:06 PM EDT [facility] Menstrual Status Cyclic 12/07/19 3:06 PM EDT [facility] Contraceptive History Not Applicable 12/06/2022 3:06 PM EDT [facility] Screening Type Routine Screen 2022 3:06 PM EDT [facility] High Risk? No 12/06/2022 3:06 PM EDT [facility] HPV Testing Requested? No HPV Testing Requested 12/06/2022 3:06 PM EDT [facility] Previous Cancer History No 12/06/2022 3:06 PM EDT [facility] Clinical Information R10.2 - Pelvic and perineal pain [ICD-10-CM] 12/06/2022 3:06 PM EDT [facility] Last Menstrual Period 10/25/2022 12/06/2022 3:06 PM EDT [facility] Swab Vaginal and cervical cytologic material / Unknown Non-blood Collection / Unknown 11/30/2022 3:09 PM EDT 11/30/2022 4:15 PM EDT us Rhea Ramos MD LAB CYTOLOGY ORDERABLES Fi nal Result [facility] [address] [place] [address] * HIV 1 & 2 Antibody/Antigen Screen (04/30/2021 8:23 PM EDT) HIV 1 & 2 Antibody/Anti gen Screen Nonreactive Nonreactive 04/30/2021 8:23 PM EDT [facility] Blood Venous blood specimen / Unknown 04/30/2021 3:09 PM EDT Rhea Ramos MD LAB BLOOD ORDERABLES Final Result Performing Organization Address City/[facility]/ZIP Co de Phone Number [facility] [address] [place] [address] * Hepatitis C Antibody (04/30/2021 8:21 PM EDT) Pathologist [facility] Hepatitis C Antibody Negative Negative 04/30/2021 8:21 PM EDT [facility] Blood Venous blood specimen / Unknown 04/30/2021 3:09 PM EDT Rhea Ramos MD LAB BLOOD ORDERABLES Final Result Performing Organization Address [facility] Co de Phone Number [facility] [address] [place] [address] from Last 3 Months or Most Recently Relevant to Health Maintenance Insurance MEDICAID Advance Directives * Full Code (Latest Code Status on File) Date Activated Date Inactivated Comments 10/23/2021 12:34 PM 10/26/2021 4:44 PM Question Answer Comments Patient has decision-making capacity? Yes Care Teams Financial Health Counselor Relationship Specialty Start Date End Date Krysten Burt MD [address] [facility] [address] [place] [address] PCP - General Adolescent Medicine 12/29/22
[2025-02-27 05:09] VITALS: BMI 26.7
[2025-02-27 05:39] VITALS: BP 122/85; PULSE 83; RESP 18; TEMP 36.9; O2SAT 99; BMI 26.7
[2025-02-27 06:07] LABS: Hematocrit 33.5 % (37.0-47.0); Hemoglobin 11.1 g/dL (12.2-16.2); Immature Granulocytes % 0.7 %; Mean Corpuscular HGB Conc 33.1 g/dL (31.8-35.4); Mean Corpuscular Hemoglobin 27.2 pg (27.0-31.2); Mean Corpuscular Volume 82.1 fl (81-99); Nucleated Red Blood Cells % 0 %; Platelet Count 175 K/mm3 (142-424); Red Blood Count 4.08 M/mm3 (4.20-5.40); Red Cell Distribution Width-SD 35.5 fL; White Blood Count 10.3 K/mm3 (4.8-10.8)
[2025-02-27 08:44] LABS: RPR W/RFX Titers Nonreactive (Nonreactive)
[2025-02-27] MEDS: ACETAMINOPHEN 500MG TAB 1000 MG PO (09:36)
[2025-02-27] MEDS: LACTATED RINGERS 1000ML 1,000 ML 500 ML IV (09:49)
[2025-02-27] MEDS: DEXTROSE 5%-LACTATED RINGERS 1,000 ML 125 ML IV ×2 (09:49→17:40)
[2025-02-27] MEDS: OXYTOCIN/RINGERS LACTATE 30 UNITS/500 ML BAG IV (09:50)
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
[2025-02-27] MEDS: LACTATED RINGERS 1000ML 1,000 ML 999 ML IV (11:12)
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
[2025-02-27 16:13] LABS: Microscopic, Urine URINE MICROSCOPIC (MICROSCOPIC)
[2025-02-27 16:57] LABS: Bilirubin,Urine Negative (Negative); Color,Urine YELLOW (Yellow); Glucose,Urine (UA) Negative (Negative); Ketones,Urine Negative (Negative); Leukocyte Esterase,Urine Negative (Negative); PH,Urine 7.5 (5.0-8.5); Protein,Urine Negative (Negative); Specific Gravity, Urine 1.010 (1.005-1.030); Urobilinogen,Urine 0.2 EU/dl (0.2)
[2025-02-27 17:53] LABS: Amorphous Sediment,Urine 1+ /lpf; Bacteria,Urine 1+ /lpf; Mucus,Urine 1+ /lpf; RBC,Urine 20-50 #/hpf (0-3)
[2025-02-27] MEDS: ONDANSETRON 4MG/2ML VIAL 4 MG IV (21:48)
[2025-02-27] MEDS: ACETAMINOPHEN 325MG TAB 650 MG PO (22:00)
[2025-02-28] MEDS: OXYTOCIN/RINGERS LACTATE 30 UNITS/500 ML BAG 40 UNITS IV ×2 (00:26→00:56)
--- NOTE | 2025-02-28 00:57 | EXP.DN ---
Delivery Note Delivery Date:: 02/28/25 Delivery Time:: 00:23 Anesthesia Type: Epidural Was labor medically induced?: Yes Induction method: per pitocin protocol (with cervical ripening balloon ) Gestational age (weeks): 38 delivered prior to 39 weeks?: Yes Justification for early elective delivery:: IUGR Infant Gender: Female at 1 minute: 9 at 5 minutes: 9 Delivery Procedure:: Preoperative diagnosis: 1. at 38 completed this weeks gestation, vertex 2. Rh positive 3. GBS negative 4. Previous delivery, desires trial of labor 5. Intrauterine growth restriction Postoperative diagnosis: 1. at 38 completed this weeks gestation, vertex 2. Rh positive 3. GBS negative 4. Previous delivery, desires trial of labor 5. Intrauterine growth restriction EBL: 350mL Specimen: 1. Cord blood Findings: 1. Liveborn viable female : Cassandra. Apgars 9/9 at 1 and 5 minutes respectively. Weight pending at time of dictation 2. First degree perineal laceration Complications: None Procedure: Vaginal after delivery Sadaf De Leon is a 24-year-old -0-0-2 who presented this morning for induction of labor secondary to intrauterine growth restriction. On presentation she was 38 weeks and 1 day gestation. Her ROBB was based off a 9-week ultrasound. She was admitted and a cervical ripening balloon was placed. Pitocin was started for labor augmentation. SROM occurred at 1537, clear fluid. She received an epidural for anesthesia. She progressed to complete. FHT were reassuring throughout labor. The was noted to be in ENZO position. With effective maternal pushing there was a nonoperative spontaneous vaginal delivery at 0023. There was a nuchal cord x1 that was unable to be reduced and somersaulted through for delivery. The anterior left shoulder delivered, followed by the posterior shoulder without dystocia. The body and lower extremities delivered without difficulty. The infant was bulb suctioned and was crying immediately following delivery. The infant was placed on the maternal abdomen and greater than one minute was appreciated for delayed cord clamping. The umbilical cord was doubly clamped and cut. Cord blood was collected and sent for routine testing. The placenta delivered. Pitocin was started. The uterus was firm, however the bleeding from the uterus was a steady trickle. With fundal massage bleeding was scant. The perineum, vaginal aguilar, cervix, and paraurethral area were inspected thoroughly. There was a first-degree perineal laceration. 3-[address] was used to place 3 simple interrupted sutures and the laceration was hemostatic. The cervix and vaginal aguilar were inspected and noted to be hemostatic. This concluded the delivery. The patient was counseled regarding the events of the delivery and repair. The patient tolerated the delivery well. All counts were correct by nursing. Mother and were doing well and bonding upon my leaving the delivery room. Laceration:: vaginal Placental Delivery Description: Spontaneous
[2025-02-28] MEDS: CEFAZOLIN 2GM VIAL 2 GM IV (01:57)
[2025-02-28] MEDS: IBUPROFEN 400 MG TABLET 800 MG PO ×3 (01:58→16:26)
[2025-02-28] MEDS: BENZOCAINE-MENTHOL SPRAY 56GM CAN TP (01:59)
[2025-02-28] MEDS: ACETAMINOPHEN 500MG TAB 1000 MG PO ×3 (05:10→21:00)
[2025-02-28 06:07] LABS: Hematocrit 28.0 % (37.0-47.0); Immature Granulocytes % 1.0 %; Mean Corpuscular HGB Conc 32.1 g/dL (31.8-35.4); Mean Corpuscular Hemoglobin 26.6 pg (27.0-31.2); Mean Corpuscular Volume 82.8 fl (81-99); Nucleated Red Blood Cells % 0 %; Platelet Count 149 K/mm3 (142-424); Red Blood Count 3.38 M/mm3 (4.20-5.40); Red Cell Distribution Width-SD 36.4 fL; White Blood Count 20.7 K/mm3 (4.8-10.8)
[2025-02-28 06:28] LABS: Hemoglobin 9.4 g/dL (12.2-16.2)
[2025-02-28 09:59] LABS: RBC Morphology Normal; Total Cells Counted 100
[2025-02-28 16:25] VITALS: BP 127/80; PULSE 87; RESP 15; TEMP 36.6; O2SAT 96
[2025-02-28] MEDS: SENNA 8.6MG TABLET 8.6 MG PO (16:26)
[2025-02-28] MEDS: PRENATAL MULTIVITAMIN W/IRON 1 EACH PO (16:26)
--- NOTE | 2025-02-28 16:40 | P.PN_ITS ---
Subjective *Date: 02/28/25 *Time: 16:40 Interval history: Sadaf is day #0 from a successful . She is doing very well but very sleepy this morning when I saw her. She did have difficulty voiding early this morning and will have another voiding trial later today. Reports her pain is well-controlled and she has no questions or concerns at this time Exam Data for Last 24 hours Vital signs and Labs for Last 24 Hours: Temp Pulse Resp BP Pulse Ox O2 Del Method 97.9 F 87 15 127/80 96 Room Air 02/28/25 16:25 02/28/25 16:25 02/28/25 16:25 02/28/25 16:25 02/28/25 16:25 02/28/25 16:25 Laboratory Results - last 24 hr 02/27/25 16:05: Urine Color Yellow, Urine Appearance Clear, Urine pH 7.5, Ur Sp ecific [place] 1.010, Urine Protein Negative, Urine Glucose (UA) Negative, Urine Ketones Negative, Urine Blood 2+ A, Urine Nitrate Negative, Urine Bilirubin Negative, Urine Urobilinogen 0.2, Ur Leukocyte Esterase Negative, Urine RBC 20- 50, Urine WBC 3-5, Ur Squamous Epith Cells 3-5, Amorphous Sediment 1+, Urine Bacteria 1+, Urine Mucus 1+ 02/28/25 05:02: WBC 20.7 H* D, RBC 3.38 L, Hgb 9.4 L D, Hct 28.0 L, MCV 82.8, MCH 26.6 L, MCHC 32.1, RDW 12.2, Plt Count 149, MPV 12.0 H, Neut % (Auto) 82.0 H , Lymph % (Auto) 8.8 L, Garrett % (Auto) 8.0, Eos % (Auto) 0.0 L, Baso % (Auto) 0.2, Neut # (Auto) 17.0 H, Lymph # (Auto) 1.8, Garrett # (Auto) 1.7 H, Eos # (Auto) 0.0, Baso # (Auto) 0.1, Total Counted 100, Neutrophils % (Manual) 83 H, Lymphocytes % (Manual) 11, Monocytes % (Manual) 6, Platelet Estimate Normal, RBC Morphology Normal I & O for Last 24 hours: Intake & Output 02/25/25 02/26/25 02/27/2524/25 23:59 23:59 23:59 23:59 Output Total 1849 / 1849 Balance -1849 / -1849 Weight 171 lb Narrative: General: patient is alert oriented in no acute distress and responds appropriately to questions. Appears to be in minimal pain. Sitting up in the chair and doing well HEENT: NCAT, EOMI, moist mucous membranes, neck supple with full ROM Cardiovascular: RRR +S1/S2, no murmurs or rubs Pulmonary: Clear to auscultation bilaterally, nonlabored breathing, symmetric chest rise Abdominal: Fundus at the umbilicus, firm, and tenderness appropriate for the period. Extremities: trace edema, no tenderness or cyanosis noted Skin: Normal turgor, intact, warm. Negative for erythema, pallor, petechia, or lesions Neurologic: Negative for sensory or motor deficit Psychiatric: Normal affect, normal thought process, good judgment and insight, no depression or anxious mood appreciated. Constitutional Constitutional: no acute distress *Routine HEENT Exam Head: Present normocephalic Eye: Present EOMI and PERRL ENT: Present mucous membranes moist *Routine Neck Exam Neck: Present supple; Absent lymphadenopathy *Routine Respiratory Exam Respiratory: Present CTA bilaterally *Routine Cardiovascular Exam Cardiovascular: Present RRR *Routine Abdominal Exam Abdominal: Present soft and normoactive bowel sounds; Absent tenderness *Routine Extremities Exam Extremities: Absent cyanosis, clubbing or edema *Routine Skin Exam Skin: Present warm; Absent rash *Routine Neurological Exam Neurological: Present alert and oriented X3 Assessment and Plan *Assessment and plan (1) , delivered, current hospitalization: Status: Acute Category: Medical Code(s): O34.219 - Maternal care for unspecified type scar from previous delivery (2) Anemia: Status: Acute Category: Medical Code(s): D64.9 - Anemia, unspecified Plan Doing well Hemoglobin 11.1 > 9.4. Follow voiding and make sure patient can spontaneously completely empty her bladder Encouraged breast-feeding anemia noted from acute blood loss. Will follow closely and iron supplementation encouraged. Vital signs stable
[2025-02-28 20:21] VITALS: BP 107/70; PULSE 87; RESP 16; TEMP 36.8; O2SAT 97
[2025-03-01] MEDS: IBUPROFEN 400 MG TABLET 800 MG PO ×2 (00:02→12:15)
[2025-03-01 00:20] VITALS: BP 104/59; PULSE 83; RESP 16; TEMP 36.5; O2SAT 97
[2025-03-01 04:02] VITALS: BP 113/71; PULSE 93; RESP 18; TEMP 36.7; O2SAT 97
[2025-03-01] MEDS: ACETAMINOPHEN 500MG TAB 1000 MG PO ×2 (04:07→12:16)
[2025-03-01] MEDS: SENNA 8.6MG TABLET 8.6 MG PO (04:08)
[2025-03-01] MEDS: LANOLIN CREAM 40GM TP (05:33)
[2025-03-01 05:47] LABS: Hematocrit 26.1 % (37.0-47.0); Immature Granulocytes % 0.8 %; Mean Corpuscular HGB Conc 31.4 g/dL (31.8-35.4); Mean Corpuscular Hemoglobin 26.5 pg (27.0-31.2); Mean Corpuscular Volume 84.2 fl (81-99); Nucleated Red Blood Cells % 0 %; Platelet Count 149 K/mm3 (142-424); Red Blood Count 3.10 M/mm3 (4.20-5.40); Red Cell Distribution Width-SD 37.6 fL; White Blood Count 13.3 K/mm3 (4.8-10.8)
[2025-03-01 05:54] LABS: Hemoglobin 8.2 g/dL (12.2-16.2)
[2025-03-01 08:55] VITALS: BP 110/68; PULSE 88; RESP 17; TEMP 36.4; O2SAT 98
--- NOTE | 2025-03-01 09:03 | EXP.DC.SUM ---
General Admission date:: 02/27/25 Discharge date: 03/01/25 HPI HPI HPI: Sadaf De Leon is a 24-year-old at 38 weeks and 1 days gestation who presented to labor and delivery for scheduled induction of labor. Her ROBB is based on 9-week ultrasound. Her has been complicated by growth restriction and a delivery for twin . All of her testing has been reassuring. She desires a . On her ultrasounds placental lakes were noted. On presentation patient endorsed good movement and denies any leakage of fluid or vaginal bleeding. Growth was obtained 01/30/2025 at 34 weeks and 1 day gestation. Overall growth percentile was 6 percentile, AC was 5th percentile. BPD was 44th percentile and head circumference was 18 percentile. Femur length was 3rd percentile. MVP and BPP were appropriate with this ultrasound. SD ratio was appropriate. A+, antibody negative, rubella nonimmune, hepatitis B negative, hepatitis C negative, RPR negative, HIV negative 1 hour GTT: 78 GBS negative Hospital Course Hospital Course Hospital Course: Sadaf De Leon is a 24yo -0-0-3 who is day #1 from a vaginal after . She is doing very well and desires discharge home. She delivered on 02/28/2025 at 00 23. She delivered a live viable female with Apgars of 9 and 9 and had a first-degree perineal laceration. 6 pounds 15 ounces. This morning on exam she was breast-feeding and her and were doing well. She has done well and has remained afebrile with her at her hospitalization. She is eating and drinking and ambulating. Her lochia is normal. She has A Rh+ blood, she is rubella immune and was group B streptococcus negative. She will be discharged home to follow-up with Dr. Bo in 2 weeks time. She will continue with her vitamins and iron. She was noted to have anemia and was given IV iron prior to discharge. She will take ibuprofen as well. She was given the usual instructions with respect to limiting her activity, driving and sexual activity. She was given instructions with respect to wound care. Her condition on discharge is stable and improved. Exam Data for Last 24 hours Vital signs and Labs for Last 24 Hours: Temp Pulse Resp BP Pulse Ox O2 Del Method 98.1 F 93 H 18 113/71 97 Room Air 03/01/25 04:02 03/01/25 04:02 03/01/25 04:02 03/01/25 04:02 03/01/25 04:02 03/01/25 04:02 Laboratory Results - last 24 hr 02/28/25 05:02: Total Counted 100, Neutrophils % (Manual) 83 H, Lymphocytes % (Manual) 11, Monocytes % (Manual) 6, Platelet Estimate Normal, RBC Morphology Normal 03/01/25 04:54: WBC 13.3 H D, RBC 3.10 L, Hgb 8.2 L D, Hct 26.1 L, MCV 84.2, MCH 26.5 L, MCHC 31.4 L, RDW 12.5, Plt Count 149, MPV 11.7 H, Neut % (Auto) 65.2, Lymph % (Auto) 24.7, [place] % (Auto) 7.7, Eos % (Auto) 1.1, Baso % (Auto) 0.5, Neut # (Auto) 8.6 H, Lymph # (Auto) 3.3, [place] # (Auto) 1.0, Eos # (Auto) 0.1, Baso # (Auto) 0.1 I & O for Last 24 hours: Intake & Output 02/26/25 02/27/25 02/28/25 03/01/25 23:59 23:59 23:59 23:59 Output Total 0 / 185 Balance -1850 / -1850 Weight 171 lb Narrative: General: patient is alert oriented in no acute distress and responds appropriately to questions. Appears to be in minimal pain. Sitting up in the chair and doing well HEENT: NCAT, EOMI, moist mucous membranes, neck supple with full ROM Cardiovascular: RRR +S1/S2, no murmurs or rubs Pulmonary: Clear to auscultation bilaterally, nonlabored breathing, symmetric chest rise Abdominal: Fundus below the umbilicus, firm, and tenderness appropriate for the period. Extremities: trace edema, no tenderness or cyanosis noted Skin: Normal turgor, intact, warm. Negative for erythema, pallor, petechia, or lesions Neurologic: Negative for sensory or motor deficit Psychiatric: Normal affect, normal thought process, good judgment and insight, no depression or anxious mood appreciated. Constitutional Constitutional: no acute distress *Routine HEENT Exam Head: Present normocephalic Eye: Present EOMI and PERRL ENT: Present mucous membranes moist *Routine Neck Exam Neck: Present supple; Absent lymphadenopathy *Routine Respiratory Exam Respiratory: Present CTA bilaterally *Routine Cardiovascular Exam Cardiovascular: Present RRR *Routine Abdominal Exam Abdominal: Present soft and normoactive bowel sounds; Absent tenderness *Routine Extremities Exam Extremities: Absent cyanosis, clubbing or edema *Routine Skin Exam Skin: Present warm; Absent rash *Routine Neurological Exam Neurological: Present alert and oriented X3 Results Data Completed and Pending Labs on day of discharge: Labs from last 24 hours 03/01/25 02/28/25 04:54 05:02 WBC 13.3 H D RBC 3.10 L Hgb 8.2 L D Hct 26.1 L MCV 84.2 MCH 26.5 L MCHC 31.4 L RDW 12.5 Plt Count 149 MPV 11.7 H Neut % (Auto) 65.2 Lymph % (Auto) 24.7 [place] % (Auto) 7.7 Eos % (Auto) 1.1 Baso % (Auto) 0.5 Neut # (Auto) 8.6 H Lymph # (Auto) 3.3 [place]es # (Auto) 1.0 Eos # (Auto) 0.1 Baso # (Auto) 0.1 Total Counted 100 Neutrophils % (Manual) 83 H Lymphocytes % (Manual) 11 Monocytes % (Manual) 6 Platelet Estimate Normal RBC Morphology Normal DS: Diagnosis Discharge Diagnosis (1) , delivered, current hospitalization: Status: Acute Code(s): O34.219 - Maternal care for unspecified type scar from previous delivery (2) Anemia: Status: Acute Code(s): D64.9 - Anemia, unspecified Meds Home Medications and Allergies Home Medications ?Medication ?Instructions ?Recorded ?Confirmed ?Type vits no.126-ferrous fum 1 tab PO DAILY 07/13/24 02/28/25 History 28 mg iron-folic acid 800 mcg tablet (Classic ) acetaminophen 500 mg tablet 500 mg PO Q6H PRN fever or pain 03/01/25 Rx #30 tabs ferrous sulfate 325 mg (65 mg 325 mg PO DAILY #30 tabs 03/01/25 Rx iron) tablet,delayed release ibuprofen 800 mg tablet 800 mg PO Q8H PRN pain #60 tabs 03/01/25 Rx sennosides 8.6 mg tablet (Senna 8.6 mg PO BIDP PRN Constipation 03/01/25 Rx Lax) #60 tabs New Prescriptions to Start Prescriptions: acetaminophen Hilaria Bo ferrous sulfate Hilaria Bo ibuprofen Hilaria Bo sennosides [Senna Lax] Hilaria Bo Allergies Allergy/AdvReac Type Severity Reaction Status Date / Time No Known Allergies Allergy Verified 02/19/25 13:04 Discharge Plan Disposition Patient Disposition: Home, Self-Care Discharge Order Discharge Orders: Discharge Order (Routine); Ordered 03/01/25 Ordered By: Hilaria Bo Follow up Plan Follow up with: Hilaria Bo DO [Staff Physician, HEAT TRANSFER TECHNICIAN] - 03/15/25 9:45 am Prescriptions/Medication Reconciliation: New sennosides [Senna Lax] 8.6 mg Tablet 8.6 mg PO BIDP PRN (Reason: Constipation) Qty: 60 2RF ibuprofen 800 mg tablet 800 mg PO Q8H PRN (Reason: pain) Qty: 60 2RF acetaminophen 500 mg tablet 500 mg PO Q6H PRN (Reason: fever or pain) Qty: 30 3RF ferrous sulfate 325 mg (65 mg iron) tablet,delayed release (DR/EC) 325 mg PO DAILY Qty: 30 3RF Continued Classic 28 mg iron- 800 mcg tablet 1 tab PO DAILY Discontinued aspirin 81 mg tablet,delayed release (DR/EC) 81 mg PO BID Qty: 60 1RF Problem Reconciliation Problems Reviewed?: Yes Patient Discharge Instructions ACTIVITY: Continue current activity DIET: regular diet Additional Instructions: Congratulations on the delivery of your sweet baby girl. It is my privilege to be your doctor and I am so thankful I could be a part of your special day. Discharge: -Take 800 mg Ibuprofen every 8 hours as needed for pain. You can also take 500-1000 mg of Tylenol in between doses, every 6-8 hours. -Colace can be taken 1-2 times per day as you need to soften your stool. Make sure to drink at least 8 cups of water per day. -Iron supplements can make you constipated. You can take iron tablets every other day if constipation is too bad. -Nothing in the vagina for 6 weeks - no intercourse, douching, tampons. No tub baths or swimming pools. -Do not lift greater than 20pounds for 2 weeks, this is the equivalent of 2 gallons of milk. -Reasons to return to L&D or call On-Call doctor - fever (greater than 100.4) - heavy vaginal bleeding (soaking through 1 pad in less than 2 hours or passing clots that are egg sized) - vaginal discharge (malodorous and/or purulent) - severe headaches, leg tenderness/edema, or any other symptoms that warrant immediate medical attention. depression/blues - Normal to feel anxious/overwhelmed for first 2 weeks - Talk to your doctor if: anxiety lasts over 2 weeks, trouble bonding with baby, withdrawing from other family members, thoughts of harming yourself or others Blood pressure and preeclampsia instructions 1. Please take your blood pressure twice daily. 2. Please call if greater than 2 values are higher than: 150 systolic (the top number) or 100 diastolic (the bottom number). 3. Please go to the emergency room or labor and delivery triage if any value is higher than: 160 systolic (the top number) or 110 diastolic (the bottom number). 4. Please call if unrelenting headache (does not go away with rest or Tylenol or ibuprofen), changes in vision (spots, floaters, flashes of light), chest pain, shortness of breath, or right upper quadrant (liver) abdominal pain. Hilaria Bo DO [facility] [phone] *Nothing in the Vagina for 6 weeks* *No strenuous activity* *No heavy lifting* *No tub baths until okay's by MD* Patient Instructions: Depression, Hemorrhage, DI for Pre-eclampsia, DI for Vaginal After Section (), [facility] Post Discharge Instructions Print Language: Macedonian Providers Primary Care Provider: Provider,Referral Admit Provider: Hilaria Bo Attending Provider: Hilaria Bo
[2025-03-01] MEDS: IRON SUCROSE COMPLEX 200 MG in 0.9 % SODIUM CHLORIDE 100 ML 220 MG IV (09:07)
== END 2025-03-01 13:40 | disposition home or self-care (01) | DRG 807 ==
PROVIDERS: Nurse Practitioner Obstetrics & Gynecology; Admitting Provider Obstetrics & Gynecology; Visit Provider Obstetrics & Gynecology
DX: O36.5930 Maternal care for other known or suspected poor fetal growth, third trimester, not applicable or unspecified (principal); Z37.0 Single live birth; Z3A.38 38 weeks gestation of pregnancy; O69.81X0 Labor and delivery complicated by cord around neck, without compression, not applicable or unspecified; O16.4 Unspecified maternal hypertension, complicating childbirth; O34.219 Maternal care for unspecified type scar from previous cesarean delivery; O70.0 First degree perineal laceration during delivery; O90.81 Anemia of the puerperium; Z79.82 Long term (current) use of aspirin; Z23 Encounter for immunization
CPT/HCPCS: 36415; 51702; 59025; 81001; 85007; 85025; 86592; 86850; 94761; C1758; J0665; J0690; J1756; J2003; J2405; J2795; J3010; J7120; J7121

== ENCOUNTER 2025-04-22 10:32 | Outpatient (CLI) | payer OTHER, SELFPAY ==
--- OUTSIDE RECORDS SUMMARY | 2025-04-22 10:34 | XMS_ITS | Encounter Summary ---
Author Organization [employer] ([place], [place], [place], [place]) Address [address] [place] [address] Care Team Providers Care Deployment Engineer Name Role Phone Unavailable Primary Care Provider Unavailabl e Encounter Details Date Type Department Care Team (Late st Contact Info) Description 04/11/2021 Transcribed Document [facility] [place] Medicine [facility] [place] [address] ProviderJuan Carlos MD [facility] [place], [place] [id number] Social History Tobacco Use Types Packs/Day Years [...] Barrier : None Primary Language : Icelandic Any Spiritual/Cultural Needs or Requests : No [...] spotting heavy Pelvic/Abdominal Pain : No Lacey Cahu RN - 04/11/2021 12:04 EDT documented in this encounter Plan of Treatment Not on file documented as of this encounter Visit Diagnoses Not on filedocumented in this encounter
--- OUTSIDE RECORDS SUMMARY | 2025-04-22 10:34 | XMS_ITS | Clinical Summary ---
Author Organization [employer] ([place], [place], [place], [place]) Address [address] [place] [address] Care Team Providers Care Piece Maker Name Role Phone Unavailable Primary Care Provider [...]
--- OUTSIDE RECORDS SUMMARY | 2025-04-22 10:34 | XMS_ITS | Encounter Summary ---
Author Organization [employer] ([place], [place], [place], [place]) Address [address] [place] [address] Care Team Providers Care Canoe Builder Name Role Phone Unavailable Primary Care Provider Unavailabl e Encounter Details Date Type Department Care Team (Late st Contact Info) Description 04/07/2021 Transcribed Document [facility] [place] [facility] [place] [address] ProviderJuan Carlos MD [facility] [place] [id number] Social History Tobacco Use Types Packs/Day Years [...] Communication Barrier : None Primary Language : Montserratian General Information Comment : seen by provider [...]
--- OUTSIDE RECORDS SUMMARY | 2025-04-22 10:34 | XMS_ITS | Encounter Summary ---
Author Organization [employer] ([place], [place], [place], [place]) Address [address] [place] [address] Care Team Providers Care Enterprise Application Architect Name Role Phone Unavailable Primary Care Provider Unavailabl e Encounter Details Date Type Department Care Team (Late st Contact Info) Description 04/11/2021 Transcribed Document [facility] [place] [address] [place] [address] ProviderJuan Carlos MD [address], [place] [id number] Social History Tobacco Use Types Packs/Day Years [...]
--- OUTSIDE RECORDS SUMMARY | 2025-04-22 10:34 | XMS_ITS | Encounter Summary ---
Author Organization [employer] ([place], [place], [place], [place]) Address [address] [place] [address] Care Team Providers Care Ase Certified Technician Name Role Phone Unavailable Primary Care Provider Unavailabl e Encounter Details Date Type Department Care Team (Late st Contact Info) Description 04/07/2021 Transcribed Document [facility] [place] Family Medicine [facility] [place] [address] ProviderJuan Carlos MD [address] [place] [address] Social History Tobacco Use Types [...] transitioning her care from her OB at [facility] her sleep as to a distance learning program coordinator at . Denies any abdominal pain or [...] What Your Test Results Mean - [facility]. Follow up with: Follow up with primary care provider Within 2 to 3 days Call for follow up appointment. Return to the ER for any new or worsening symptoms as discussed, especially difficulty breathing or low O2 sat below 90%. Drink plenty of fluids and rest. You may take Tylenol as needed. Follow-up with your DATA COMMUNICATIONS ENGINEER.; , Follow up with primary care provider Within 2 to 3 days Call for follow up appointment. Return to the ER for any new or worsening symptoms as discussed, especially difficulty breathing or low O2 sat below 90%. Drink plenty of fluids and rest. You may take Tylenol as needed. Follow-up with your DATA COMMUNICATIONS ENGINEER.. Counseled: Patient, Regarding diagnosis, Regarding diagnostic results, Regarding treatment plan, Patient indicated understanding of instructions. documented in this encounter Plan of Treatment Not on file documented as of this encounter Visit Diagnoses Not on filedocumented in this encounter
--- OUTSIDE RECORDS SUMMARY | 2025-04-22 10:34 | XMS_ITS | Encounter Summary ---
Author Organization [employer] ([place], [place], [place], [place]) Address [address] [place] [address] Care Team Providers Care Patient Transport Orderly Name Role Phone Unavailable Primary Care Provider Unavailabl e Encounter Details Date Type Department Care Team (Late st Contact Info) Description 04/07/2021 Transcribed Document [facility] [place] [facility] [place] [address] ProviderJuan Carlos MD [address] [place] [address] Social History Tobacco Use Types Packs/Day [...] - Non - Urgent Tracking Group : [facility] ED East MARIANA ESTEVES RN [...] PNED ; Probability: 0 ; Diagnosis Code: [id number] ED Height and Weight Height Source : Measured Height Entry Format : [place] Height, Feet : 5 ft(Converted to: 152 cm, 60 Inch) Height, Inches : 7 Inch(Converted to: 0 ft 7 Inch, 17.78 cm) Clinical Height : 170.18 cm Weight Source, ED : Standing scale Weight Entry Format : [place] Weight, Pounds : 128 lb Clinical Dosing Weight : 58.18 kg Body Surface Area (BSA) : 1.67 m2 Body Mass Index : 20.1 kg/m2 [place] Body Weight (IBW) : 61.16 kg MARIANA ESTEVES RN - 04/07/2021 21:15 EDT Electronically signed by Brian Zayas Conversion Water Plant Maintenance Mechanic Cerner at 11/21/2022 11:42 PM CDT documented in this encounter Plan of Treatment Not on file documented as of this encounter Visit Diagnoses Not on filedocumented in this encounter
--- OUTSIDE RECORDS SUMMARY | 2025-04-22 10:34 | XMS_ITS | Encounter Summary ---
Author Organization [employer] ([place], [place], [place], [place]) Address [address] [place] [address] Care Team Providers Care Facility Practice Specialist Name Role Phone Unavailable Primary Care Provider Unavailabl e Encounter Details Date Type Department Care Team (Late st Contact Info) Description 04/11/2021 Transcribed Document [facility] [place] [facility] [place] [address] ProviderJuan Carlos MD [address] [place] [address] Social History Tobacco Use Types [...]
--- OUTSIDE RECORDS SUMMARY | 2025-04-22 10:34 | XMS_ITS | Encounter Summary ---
Author Organization [email or web address] ([place], [place], [place], [place]) Address [address] [place] [address] Care Team Providers Care Churn Driller Helper Name Role Phone Unavailable Primary Care Provider Unavailabl e Encounter Details Date Type Department Care Team (Late st Contact Info) Description 04/11/2021 Transcribed Document [facility] [place] Family Medicine [facility] [place] [address] ProviderJuan Carlos MD [facility] [place] [address] Social History Tobacco Use Types [...] Patient reports brownish-red vaginal spotting that is bread wrapper operator than her menstrual period. This began yesterday and has continued today. She denies any abdominal pain or pelvic cramping. Also denies fever, nausea/vomiting, vaginal discharge. Patient tested positive for COVID-19 4 days ago and yesterday received the monoclonal antibody infusion. She currently follows with an FEED INSPECTION SUPERVISOR at [facility], however is in the [...] April 11, 2021 14:10 EDT Encounter info: [id number], BEREKET Diaz [facility], Emergency Room, 04/11/2021 - 04/11/2021 . [...] discussed strict pelvic rest and follow-up with FEED INSPECTION SUPERVISOR. Patient voices understanding and agreement with [...] pelvic rest as discussed. Follow-up with your FEED INSPECTION SUPERVISOR in 2 days for repeat assessment., Follow up with primary care provider Within 2 to 3 days Call for follow up appointment. Return to the ER for any new or worsening symptoms as discussed, especially fever, persistent pelvic pain, vaginal bleeding greater than 2 pads/hour. Recommend pelvic rest as discussed. Follow-up with your FEED INSPECTION SUPERVISOR in 2 days for repeat assessment., Follow up with primary care provider Within 2 to 3 days Call for follow up appointment. Return to the ER for any new or worsening symptoms as discussed, especially fever, persistent pelvic pain, vaginal bleeding greater than 2 pads/hour. Recommend pelvic rest as discussed. Follow-up with your FEED INSPECTION SUPERVISOR in 2 days for repeat assessment.. Counseled: Patient, Regarding diagnosis, Regarding diagnostic results, Regarding treatment plan, Patient indicated understanding of instructions. documented in this encounter Plan of Treatment Not on file documented as of this encounter Visit Diagnoses Not on filedocumented in this encounter
--- OUTSIDE RECORDS SUMMARY | 2025-04-22 10:34 | XMS_ITS | Referral Summary ---
Author Organization [employer] ([place], [place], [place], [place]) Address [address] [place] [address] Care Team Providers Care Vice President Name Role Phone Unavailable Primary [...]
--- OUTSIDE RECORDS SUMMARY | 2025-04-22 10:34 | XMS_ITS | Encounter Summary ---
Author Organization [employer] ([place], [place], [place], [place]) Address [address] [place] [address] Care Team Providers Care Administration Intern Name Role Phone Unavailable Primary Care Provider Unavailabl e Encounter Details Date Type Department Care Team (Late st Contact Info) Description 04/11/2021 Transcribed Document [facility] [place] [address] [place] [address] ProviderJuan Carlos MD [address] [place], [place] [id number] Social History Tobacco Use Types Packs/Day Years [...] Historical ProviderMD - 04/11/2021 9:48 AM CDT [place] Suicide Severity Rating Scale (C-SSRS) Entered On: 04/11/2021 12:05 EDT Performed On: 04/11/2021 12:04 EDT by Lacey Chau RN [place] Suicide Severity Rating Scale (C-SSRS) CSSRS Past Month Wish to be : No CSSRS Past Month Suicidal Thoughts : No CSSRS Lifetime Suicide Behavior : No Suicide Severity Rating Score : 0 Suicide Severity Rating : No Additional Care Required at this time Lcaey Chau RN - 04/11/2021 12:04 EDT Electronically signed by Chana [facility] Conversion Ice Puller Cerner at 11/21/2022 11:45 PM CDT documented in this encounter Plan of Treatment Not on file documented as of this encounter Visit Diagnoses Not on filedocumented in this encounter
--- OUTSIDE RECORDS SUMMARY | 2025-04-22 10:34 | XMS_ITS | Encounter Summary ---
Author Organization [employer] ([place], [place], [place], [place]) Address [address] [place] [address] Care Team Providers Care Conservation Educator Name Role Phone Unavailable Primary Care Provider Unavailabl e Encounter Details Date Type Department Care Team (Late st Contact Info) Description 04/11/2021 Transcribed Document [facility] [place] Medicine [facility] [place] [address] ProviderJuan Carlos MD [address] [place] [address] Social History Tobacco Use Types [...] 12:12 PM CDT Electronically signed by Chana [facility] Conversion Edger Liner Yu at 11/21/2022 11:35 PM CDT documented in this encounter Plan of Treatment Not on file documented as of this encounter Visit Diagnoses Not on filedocumented in this encounter
--- OUTSIDE RECORDS SUMMARY | 2025-04-22 10:34 | XMS_ITS | Encounter Summary ---
Author Organization [employer] ([place], [place], [place], [place]) Address [address] [place] [address] Care Team Providers Care Court Attendant Name Role Phone Unavailable Primary Care Provider Unavailabl e Encounter Details Date Type Department Care Team (Late st Contact Info) Description 04/11/2021 Transcribed Document [facility] [place] [facility] [place] [address] ProviderJuan Carlos MD [facility] [place] [address] Social History Tobacco Use Types [...] Urgent Tracking Group : [facility] Harleen Brown RN - 04/11/2021 10:10 [...] caused by 2019 novel coronavirus (SNOMED CT :[id number] ) Name of Problem: Disease caused by 2019 novel coronavirus ; Recorder: SYSTEM, SYSTEM; Confirmation: Confirmed ; Classification: Medical ; Code: [id number] ; Last Updated: 04/07/2021 22:55 EDT ; Life Cycle Date: 04/07/2021 ; Life Cycle Status: Active ; Vocabulary: SNOMED CT ; Comments: 04/07/2021 22:55 - SYSTEM, SYSTEM Problem added by a rule: [id number]. Diagnoses(Active) Vaginal bleeding Date: 04/11/2021 ; Diagnosis Type: Reason For Visit ; Confirmation: Complaint of ; Clinical Dx: Vaginal bleeding ; Classification: Medical ; Clinical Service: Non-Specified ; Code: PNED ; Probability: 0 ; Diagnosis Code: [id number] ED Height and Weight Height Source : Measured Height Entry Format : [place] Height, Feet : 5 ft(Converted to: 152 cm, 60 Inch) Height, Inches : 7 Inch(Converted to: 0 ft 7 Inch, 17.78 cm) Clinical Height : 170.18 cm Weight Source, ED : Standing scale Weight Entry Format : [place] Weight, Pounds : 128 lb Clinical Dosing Weight : 58.18 kg Body Surface Area (BSA) : 1.67 m2 Body Mass Index : 20.1 kg/m2 [place] Body Weight (IBW) : 61.16 kg Harleen Brown RN - 04/11/2021 10:10 EDT documented in this encounter Plan of Treatment Not on file documented as of this encounter Visit Diagnoses Not on filedocumented in this encounter
--- OUTSIDE RECORDS SUMMARY | 2025-04-22 10:34 | XMS_ITS | Encounter Summary ---
Author Organization [employer] ([place], [place], [place], [place]) Address [address] [place] [address] Care Team Providers Care Business Integration Analyst Name Role Phone Unavailable Primary Care Provider Unavailabl e Encounter Details Date Type Department Care Team (Late st Contact Info) Description 04/07/2021 Transcribed Document [facility] [place] Family Medicine [address] [place] [address] ProviderJuan Carlos MD [address] [place], [place] [id number] Social History Tobacco Use Types Packs/Day Years [...]
--- OUTSIDE RECORDS SUMMARY | 2025-04-22 10:34 | XMS_ITS | Encounter Summary ---
Author Organization [employer] ([place], [place], [place], [place]) Address [address] [place] [address] Care Team Providers Care Surgical Processor Name Role Phone Unavailable Primary Care Provider Unavailabl e Encounter Details Date Type Department Care Team (Late st Contact Info) Description 04/11/2021 Transcribed Document [facility] [place] [facility] [place] [address] ProviderJuan Carlos MD [facility] [place] [address] Social History Tobacco Use [...] 04/11/2021 14:35 EDT Electronically signed by Chana [facility] Conversion Contact Center Consultant Cerner at 11/21/2022 11:36 PM CDT documented in this encounter Plan of Treatment Not on file documented as of this encounter Visit Diagnoses Not on filedocumented in this encounter
--- OUTSIDE RECORDS SUMMARY | 2025-04-22 10:34 | XMS_ITS | Encounter Summary ---
Author Organization [employer] ([place], [place], [place], [place]) Address [address] [place] [address] Care Team Providers Care Clam Dredger Name Role Phone Unavailable Primary Care Provider Unavailabl e Encounter Details Date Type Department Care Team (Late st Contact Info) Description 04/07/2021 Transcribed Document [facility] [place] Family Medicine [address] [place] [address] ProviderJuan Carlos MD [address] [place], [place] [id number] Social History Tobacco Use Types Packs/Day Years [...] Historical ProviderMD - 04/07/2021 7:59 PM CDT [place] Suicide Severity Rating Scale (C-SSRS) Entered On: 04/08/2021 0:17 EDT Performed On: 04/08/2021 0:16 EDT by MARIANA ESTEVES RN [place] Suicide Severity Rating Scale (C-SSRS) CSSRS Past [...]
--- OUTSIDE RECORDS SUMMARY | 2025-04-22 10:34 | XMS_ITS | Encounter Summary ---
Author Organization [employer] ([place], [place], [place], [place]) Address [address] [place] [address] Care Team Providers Care Certified Anesthesiologist Assistant Name Role Phone Unavailable Primary Care Provider Unavailabl e Encounter Details Date Type Department Care Team (Late st Contact Info) Description 04/11/2021 Transcribed Document [facility] [place] [facility] [place] [address] ProviderJuan Carlos MD [address] [place] [address] Social History Tobacco Use Types [...] Carlos ProviderMD - 04/11/2021 2:23 PM CDT [place] [id number] LIBERTAD WEBBNE :2000 Visit Time:04/11/2021 Your Visit [...] pelvic rest as discussed. Follow-up with your DYNO TECHNICIAN in 2 days for repeat assessment. Allergies [...] provider. Document Revised: 08/31/2018 Document Reviewed: 10/21/2017 [employer] Patient Education ?? 2020 [employer] Vaginal Bleeding During , First Trimester [...] this is safe. General instructions ??? Take [id number] and prescription medicines only as told by [...] provider. Document Revised: 11/13/2019 Document Reviewed: 10/27/2017 [employer] Patient Education ?? 2020 [employer] Subchorionic Hematoma A subchorionic hematoma is [...] Reviewed: 09/20/2017 Elsevier Patient Education ?? 2020 [employer] Emergency Awareness and Preventative Care STROKE [...] Assistance with quitting is available by contacting 3-062-ZHUQNOW. This is a free resource providing counseling, support, and referral. Or you may contact your personal physician. [place] Suicide Prevention Lifeline: The National Suicide Prevention [...] was given the opportunity to ask questions. Patient/Fitter Hand Name: Patient/Fitter Hand Signature: Relationship to Patient: Clinician/Hospital Fitter Hand Signature: Please Provide a Telephone Number Where You Can Be Reached: Is it Permissible To Leave a Message? Date: Electronically signed by Chana, [facility] Conversion Tools And Parts Attendant Cerner at 11/21/2022 11:34 PM CDT documented in this encounter Plan of Treatment Not on file documented as of this encounter Visit Diagnoses Not on filedocumented in this encounter
--- OUTSIDE RECORDS SUMMARY | 2025-04-22 10:34 | XMS_ITS | Clinical Summary ---
Author Organization [employer] [facility] Address [address] [place] [id number] Phone Care Team Providers Care Manufacturing Lead Name Role Phone Unavailable Unavailable Conditions or Problems No information available. Medications No information available. Medications Administered No information available. Allergies, Adverse Reactions, Alerts No information available. Results No information available. Plan of Care No information available. Procedures No information available. Vital Signs No information available. Immunizations No information available. [place] Directives No information available.
--- OUTSIDE RECORDS SUMMARY | 2025-04-22 10:34 | XMS_ITS | Encounter Summary ---
Author Organization [employer] ([place], [place], [place], [place]) Address [address] [place] [address] Care Team Providers Care Qa Automation Developer Name Role Phone Unavailable Primary Care Provider Unavailabl e Encounter Details Date Type Department Care Team (Late st Contact Info) Description 04/07/2021 Transcribed Document [facility] [place] [address] ProviderJuan Carlos MD [address], [...] [facility] Conversion Application Helper Martinener at 11/21/2022 11:36 PM CDT documented in this encounter Plan of Treatment Not on file documented as of this encounter Visit Diagnoses Not on filedocumented in this encounter
--- OUTSIDE RECORDS SUMMARY | 2025-04-22 10:34 | XMS_ITS | Encounter Summary ---
Author Organization [employer] ([place], [place], [place], [place]) Address [address] [place] [address] Care Team Providers Care Automotive Alignment Specialist Name Role Phone Unavailable Primary Care Provider Unavailabl e Encounter Details Date Type Department Care Team (Late st Contact Info) Description 04/10/2021 Transcribed Document [facility] [place] [facility] [place] [address] ProviderJuan Carlos MD [facility] [place] [address] Social History Tobacco Use Types [...]
--- OUTSIDE RECORDS SUMMARY | 2025-04-22 10:34 | XMS_ITS | Encounter Summary ---
Author Organization [employer] ([place], [place], [place], [place]) Address [address] [place] [address] Care Team Providers Care Cubing Machine Tender Name Role Phone Unavailable Primary Care Provider Unavailabl e Encounter Details Date Type Department Care Team (Late st Contact Info) Description 04/11/2021 Transcribed Document [facility] [place] Family Medicine [address] [place] [address] ProviderJuan Carlos MD [address] [place], [place] [id number] Social History Tobacco Use Types Packs/Day Years [...]
--- OUTSIDE RECORDS SUMMARY | 2025-04-22 10:35 | XMS_ITS | Encounter Summary ---
Author Organization [employer] ([place], [place]) Address [address] [place] [address] Care Team Providers Care Body Team Member Name Role Phone Unavailable Primary Care Provider Unavailabl e Encounter Details Date Type Department Care Team (Late st Contact Info) Description 04/08/2021 Transcribed Document [facility] [place] [address] ProviderJuan Carlos MD [facility] [place], [place] [id number] Social History Tobacco Use Types Packs/Day Years [...] 04/08/2021 0:17 EDT Electronically signed by Chana [facility] Conversion Asphalt Patcher Cerner at 11/21/2022 11:44 PM CDT documented in this encounter Plan of Treatment Not on file documented as of this encounter Visit Diagnoses Not on filedocumented in this encounter
--- OUTSIDE RECORDS SUMMARY | 2025-04-22 10:35 | XMS_ITS | Encounter Summary ---
Author Organization [employer] ([place], [place], [place], [place]) Address [address] [place] [address] Care Team Providers Care Electric Lift Truck Driver Name Role Phone Unavailable Primary Care Provider Unavailabl e Encounter Details Date Type Department Care Team (Late st Contact Info) Description 04/10/2021 Transcribed Document [facility] [place] Family Medicine [facility] [place] [address] ProviderJuan Carlos MD [facility] [place], [place] [id number] Social History Tobacco Use Types Packs/Day Years [...] Communication Barrier : None Primary Language : Jordanian Any Spiritual/Cultural Needs or Requests : No [...] (Last Updated: 04/10/2021 05:46:18 EDT by KIYA GUERAR RN) Cardiovascular ASMT, ED Cardiovascular Assessment WDL [...]
--- OUTSIDE RECORDS SUMMARY | 2025-04-22 10:35 | XMS_ITS | Encounter Summary ---
Author Organization [employer] ([place], [place], [place], [place]) Address [address] [place] [address] Care Team Providers Care Physical Biochemist Name Role Phone Unavailable Primary Care Provider Unavailabl e Encounter Details Date Type Department Care Team (Late st Contact Info) Description 04/10/2021 Transcribed Document [place] [facility] Medicine [facility] [place] [address] ProviderJuan Carlos MD [address] [place], [place] [phone] Social History Tobacco Use Types Packs/Day Years [...] Historical ProviderMD - 04/10/2021 5:27 AM CDT [place] Suicide Severity Rating Scale (C-SSRS) Entered On: 04/10/2021 6:47 EDT Performed On: 04/10/2021 6:46 EDT by Nasreen Aldridge RN-PATIENT CARE BEDSIDE NON-EXEMPT [place] Suicide Severity Rating Scale (C-SSRS) CSSRS Past [...]
--- OUTSIDE RECORDS SUMMARY | 2025-04-22 10:35 | XMS_ITS | Clinical Summary ---
Author Organization [facility] Address [address] [place] [address] Care Team Providers Care Customer Business Manager Name Role Phone Provider, No Known [...] nts Yes 03/12/2025 Based on Patient Reported Social History Tobacco Use Types Packs/Day Years [...] 2-dose series) 08/31/2018 02/28/2018 PAP SMEAR 2022 ANNUAL PHYSICAL 10/30/2024 CHLAMYDIA SCREENING 10/30/2024 11/30/2022, 03/29/2020, 03/29/2020 COVID-19 Vaccine (2023-2 5 season) 2025 INFLUENZA VACCINE 05/08/2025 05/09/2013, , 08/13/2008, Additional history exists TDAP/TD VACCINES (3 - Td or Tdap) 08/20/2031 022, 04/04/2013 Pneumococcal Vaccine 0-49 Completed 2008, 01/03/2003, 06/21/2002, Additional history exists HEPATITIS C SCREENING Completed 04/30/2021, 021 RSV Vaccine - Adults (No Dos es Required) Completed Insurance [facility] Care Teams Customer Business Manager Relationship Specialty Start Date End Date Provider, No Known [facility] [place] [address] PCP - General 10/26/24
--- OUTSIDE RECORDS SUMMARY | 2025-04-22 10:35 | XMS_ITS | Encounter Summary ---
Author Organization [employer] ([place], [place], [place], [place]) Address [address] [place] [address] Care Team Providers Care Mobile Lab Technician Name Role Phone Unavailable Primary Care Provider Unavailabl e Encounter Details Date Type Department Care Team (Late st Contact Info) Description 04/10/2021 Transcribed Document [facility] [place] Medicine [facility] [place] [address] ProviderJuan Carlos MD [address] [place] [address] Social History Tobacco Use Types [...] Cavazos MD - 04/10/2021 8:46 AM CDT [place] [id number] LIBERTAD DE LEONNE :2000 Visit Time:04/10/2021 Your [...] or High Risk [phone] [address] [place] [id number]- [facility] (1) Follow Up with For a clinic referral service , just dial: [phone] (WELL) Our experts will provide you with [...] water are not available, use alcohol-based hand manager of purchasing. ??? Avoid touching your mouth, face, eyes, [...] after expressing milk. Follow the director of billing's instructions to clean and disinfect all pump [...] (CDC): www.cdc.gov/coronavirus/2019-ncov/ ??? World Health Organization (WHO): www.who.int/news-room/q-a-detail/g-j-no-clice-86-rycrdkysi-wxwzakclwy-zgb-mkem stfeeding ??? [place] [employer] (ACOG): www.acog.org/patient-resources/faqs//ynasohfiyjl-hojspshwv-dna-breast feeding Questions to ask your health care [...] provider. Document Revised: 07/25/2020 Document Reviewed: 07/25/2020 [employer] Patient Education ?? 2020 [employer]. 10 Things You Can Do to Manage [...] clean your hands with an alcohol-based hand manager of purchasing that contains at least 60% alcohol. 8. [...] Reviewed: 07/10/2020 Elsevier Patient Education ?? 2020 [employer] Emergency Awareness and Preventative Care STROKE [...] Assistance with quitting is available by contacting 2-559-TOOMNOW. This is a free resource providing counseling, support, and referral. Or you may contact your personal physician. [place] Suicide Prevention Lifeline: The National Suicide Prevention [...] was given the opportunity to ask questions. Patient/Development Technician Name: Patient/Development Technician Signature: Relationship to Patient: Clinician/Hospital Development Technician Signature: Please Provide a Telephone Number Where You Can Be Reached: Is it Permissible To Leave a Message? Date: Electronically signed by Chana [facility] Conversion Lead Driver Yu at 11/21/2022 11:37 PM CDT documented in this encounter Plan of Treatment Not on file documented as of this encounter Visit Diagnoses Not on filedocumented in this encounter
--- OUTSIDE RECORDS SUMMARY | 2025-04-22 10:35 | XMS_ITS | Encounter Summary ---
Author Organization [employer] ([place], [place], [place], [place]) Address [address] [place] [address] Care Team Providers Care Picking Crew Supervisor Name Role Phone Unavailable Primary Care Provider Unavailabl e Encounter Details Date Type Department Care Team (Late st Contact Info) Description 04/10/2021 Transcribed Document [facility] [place] Family Medicine [address] [place] [address] ProviderJuan Carlos MD [address] [place], [place] [address] Social History Tobacco Use Types Packs/Day Years [...]
--- OUTSIDE RECORDS SUMMARY | 2025-04-22 10:35 | XMS_ITS | Encounter Summary ---
Author Organization [employer] ([place], [place], [place], [place]) Address [address] [place] [address] Care Team Providers Care Research Program Intern Name Role Phone Unavailable Primary Care Provider Unavailabl e Encounter Details Date Type Department Care Team (Late st Contact Info) Description 04/10/2021 Transcribed Document [facility] Radiology [address] [place] [address] Herbie Méndez MD [address] [place] [address] Dept[place] [address] Social History Tobacco Use Types [...] 1-Time . Notes: spoke to multiple Ob recreation officer, with recomendations, patient remains stable, US update [...] a clinic referral service , just dial: [phone] (WELL) Our experts will provide you with [...]
--- OUTSIDE RECORDS SUMMARY | 2025-04-22 10:35 | XMS_ITS | Encounter Summary ---
Author Organization [employer] ([place], [place], [place], [place]) Address [address] [place] [address] Care Team Providers Care Traffic Rate Clerk Name Role Phone Unavailable Primary Care Provider Unavailabl e Encounter Details Date Type Department Care Team (Late st Contact Info) Description 04/10/2021 Transcribed Document [facility] [place] [facility] [place] [address] ProviderJuan Carlos MD [facility] [place] [address] Social History Tobacco Use Types [...] East Tracking Acuity : 3 - Urgent KYIA GUERRA RN - 04/10/2021 5:42 EDT Mode [...] caused by 2019 novel coronavirus (SNOMED CT :[id number] ) Name of Problem: Disease caused by 2019 novel coronavirus ; Recorder: SYSTEM, SYSTEM; Confirmation: Confirmed ; Classification: Medical ; Code: [id number] ; Last Updated: 04/07/2021 22:55 EDT ; Life Cycle Date: 04/07/2021 ; Life Cycle Status: Active ; Vocabulary: SNOMED CT ; Comments: 04/07/2021 22:55 - SYSTEM, SYSTEM Problem added by a rule: [id number]. Diagnoses(Active) Medication administration Date: 04/10/2021 ; Diagnosis Type: Reason For Visit ; Confirmation: Complaint of ; Clinical Dx: Medication administration ; Classification: Medical ; Clinical Service: Emergency medicine ; Code: PNED ; Probability: 0 ; Diagnosis Code: [id number] ED Height and Weight Height Source : Measured Height Entry Format : [place] Height, Feet : 5 ft(Converted to: 152 cm, 60 Inch) Height, Inches : 7 Inch(Converted to: 0 ft 7 Inch, 17.78 cm) Clinical Height : 170.18 cm Weight Source, ED : Standing scale Weight Entry Format : [place] Weight, Pounds : 128 lb Clinical Dosing Weight : 58.18 kg Body Surface Area (BSA) : 1.67 m2 Body Mass Index : 20.1 kg/m2 [place] Body Weight (IBW) : 61.16 kg KIYA [...] EDT Electronically signed by Brian Zayas Conversion Retail Chain Store Area Supervisor Cerner at 11/21/2022 11:40 PM CDT documented in this encounter Plan of Treatment Not on file documented as of this encounter Visit Diagnoses Not on filedocumented in this encounter
--- OUTSIDE RECORDS SUMMARY | 2025-04-22 10:35 | XMS_ITS | Encounter Summary ---
Author Organization [employer] ([place], [place], [place], [place]) Address [address] [place] [address] Care Team Providers Care Chief Of Production Name Role Phone Unavailable Primary Care Provider Unavailabl e Encounter Details Date Type Department Care Team (Late st Contact Info) Description 04/08/2021 Transcribed Document [facility] [place] [facility] [address] ProviderJuan Carlos MD [address] [place] [address] Social History Tobacco Use Types [...]
--- OUTSIDE RECORDS SUMMARY | 2025-04-22 10:35 | XMS_ITS | Clinical Summary ---
Author Organization [facility] Address [address] [place] [address] Care Team Providers Care Beauty Artist Name Role Phone Krysten Burt MD Primary Care Provider [phone] Allergies No known active allergies Medications pseudoephedrine [...] (10/02/2021): Added automatically from request for surgery [id number] Immunizations Immunization Administration Dates Next Due Tdap [...] in a correction (including now)? No 03/27/2024 Ringgold Depression Scale Answer Date Recorded Ringgold Depression Scale Total 8 12/07/2021 The thought [...] HPV Vaccines (1 - 3-dose series) 2016 [facility]- SDOH Screenings 2019 [facility]-Adult SDOH Screenings 2019 [facility]-Chlamydia and Gonorrhea Screening 12/01/2023 11/30/2022, 11/30/2022, 07/15/2022, Additional history exists [id number] Vaccine ( - season) 2025 [facility]-Influenza Vaccine (#1) 2025 05/09/2013, [facility]-Depression Screening [...] Detected Not Detected 12/02/2022 9:37 AM EDT [facility] Swab Endocervical structure / Unknown Non-blood Collection / Unknown 11/30/2022 3:09 PM EDT 11/30/2022 4:07 PM EDT Narrative [facility] - 12/02/2022 9:37 AM EDT This test is performed by the [employer] m2000 instrument for Real Time PCR C. trachomatis and N. gonorrhea. This test is FDA approved for use with endocervical, vaginal, and urine specimens. This test is used for clinical purposes. It should not be regarded as invesigational or for research. The [facility]biology [facility] is certified under the Clinical Laboratory Improvement Amendments of 1988 (CLIA-88) as qualified to perform high complexity clinical laboratory testing. us Rhea Ramos MD LAB MICROBIOLOGY - GENERAL ORDERABLES Final Result [facility] [address] [place], [place] [id number] * Pap Test (11/30/2022 3:09 PM EDT) Case Report Cytology Case: [id number] Authorizing Provider: Rhea Ramos MD Collected: 11/30/2022 1509 Ordering Location: Medical Office Building Received: 11/30/2022 1615 Obstetrics and Gynecology First Screen: Shayy Gordon Specimen: ThinPrep Pap Test, Liquid-Based Cervical/Vaginal, CERVICAL/VAGINAL 12/06/2022 3:06 PM EDT [facility] Interpretation NEGATIVE FOR INTRAEPITHELIAL LESION OR MALIGNANCY 12/06/2022 3:06 PM EDT [facility] at 1506 EDT Specimen Adequacy Satisfactory for evaluation; endocervical/villanueva sformation zone component present. Slide imaged by the ThinPrep Imaging system and selected 22 corado reviewed then full manual screening. 12/06/2022 3:06 PM EDT [facility] Cervical cytology is a screening test [...] results is suggested (please call Microbiology at [phone] for results). 12/06/2022 3:06 PM EDT [facility] Menstrual Status Cyclic 12/07/19 3:06 PM EDT [facility] Contraceptive History Not Applicable 12/06/2022 3:06 PM EDT [facility] Screening Type Routine Screen 2022 3:06 PM EDT [facility] High Risk? No 12/06/2022 3:06 PM EDT [facility] HPV Testing Requested? No HPV Testing Requested 12/06/2022 3:06 PM EDT [facility] Previous Cancer History No 12/06/2022 3:06 PM EDT [facility] Clinical Information R10.2 - Pelvic and perineal pain [ICD-10-CM] 12/06/2022 3:06 PM EDT [facility] Last Menstrual Period 10/25/2022 12/06/2022 3:06 PM EDT [facility] Swab Vaginal and cervical cytologic material / Unknown Non-blood Collection / Unknown 11/30/2022 3:09 PM EDT 11/30/2022 4:15 PM EDT us Rhea Ramos MD LAB CYTOLOGY ORDERABLES Fi nal Result [facility] [address] [place] [id number] * HIV 1 & 2 Antibody/Antigen Screen (04/30/2021 8:23 PM EDT) HIV 1 & 2 Antibody/Anti gen Screen Nonreactive Nonreactive 04/30/2021 8:23 PM EDT [facility] Blood Venous blood specimen / Unknown 04/30/2021 3:09 PM EDT Rhea Ramos MD LAB BLOOD ORDERABLES Final Result Performing Organization Address City/[facility]/ZIP Co de Phone Number [facility]ALTH[facility] [address] [place] [address] * Hepatitis C Antibody (04/30/2021 8:21 PM EDT) Hepatitis C Antibody Negative Negative 04/30/2021 8:21 PM EDT [facility] Blood Venous blood specimen / Unknown 04/30/2021 3:09 PM EDT Rhea Ramos MD LAB BLOOD ORDERABLES Final Result Performing Organization Address [facility] Co de Phone Number [facility] [address] [place] [address] from Last 3 Months or Most Recently Relevant to Health Maintenance Insurance MEDICAID Advance Directives * Full Code (Latest Code Status on File) Date Activated Date Inactivated Comments 10/23/2021 12:34 PM 10/26/2021 4:44 PM Question Answer Comments Patient has decision-making capacity? Yes Care Teams Beauty Artist Relationship Specialty Start Date End Date Krysten Burt MD [address] [facility] [address] [place] [id number] PCP - General Adolescent Medicine 12/29/22
--- OUTSIDE RECORDS SUMMARY | 2025-04-22 10:35 | XMS_ITS | Encounter Summary ---
Author Organization [employer] ([place], [place], [place], [place]) Address [address] [place] [address] Care Team Providers Care Cooperative Education Director Name Role Phone Unavailable Primary Care Provider Unavailabl e Encounter Details Date Type Department Care Team (Late st Contact Info) Description 04/10/2021 Transcribed Document [facility] [place] Family Medicine [place] [address] ProviderJuan Carlos MD [address] [place] [address] Social History Tobacco Use Types [...] Cavazos MD - 04/10/2021 8:45 AM CDT [place] [id number] LIBERTAD DE LEONNE :2000 Visit Time:04/10/2021 Your [...] or High Risk [phone] [address]: [address] [place] [id number]- [facility] (1) Follow Up with For a clinic referral service , just dial: [phone] (WELL) Our experts will provide you with [...] water are not available, use alcohol-based hand insurance follow up representative. ??? Avoid touching your mouth, face, eyes, [...] pump parts after expressing milk. Follow the mortar man's instructions to clean and disinfect all pump [...] (CDC): www.cdc.gov/coronavirus/2019-ncov/ ??? World Health Organization (WHO): www.who.int/news-room/q-a-detail/m-e-sn-fwlte-96-mmbutmkkg-orbovwwalz-cax-ewum stfeeding ??? [place] College of Obstetricians and Gynecologists (ACOG): www.acog.org/patient-resources/faqs//vxgjnopvidm-iaxemxmsn-ixr-breast feeding Questions to ask your health care [...] provider. Document Revised: 07/25/2020 Document Reviewed: 07/25/2020 Data Driven Delivery System Patient Education ?? 2020 Climber.com. 10 Things You Can Do to Manage [...] clean your hands with an alcohol-based hand insurance follow up representative that contains at least 60% alcohol. 8. [...] Reviewed: 07/10/2020 Elsevier Patient Education ?? 2020 Data Driven Delivery System Inc. Emergency Awareness and Preventative Care STROKE [...] Assistance with quitting is available by contacting 1-628-CABANOW. This is a free resource providing counseling, support, and referral. Or you may contact your personal physician. [employer] Suicide Prevention Lifeline: The National Suicide Prevention [...] was given the opportunity to ask questions. Patient/Cytogenetic Technologist Name: Patient/Cytogenetic Technologist Signature: Relationship to Patient: Clinician/Hospital Cytogenetic Technologist Signature: Please Provide a Telephone Number Where You Can Be Reached: Is it Permissible To Leave a Message? Date: documented in this encounter Plan of Treatment Not on file documented as of this encounter Visit Diagnoses Not on filedocumented in this encounter
--- OUTSIDE RECORDS SUMMARY | 2025-04-22 10:35 | XMS_ITS | Encounter Summary ---
Author Organization [employer] ([place], [place], [place], [place]) Address [address] [place] [address] Care Team Providers Care Nozzle And Sleeve Worker Name Role Phone Unavailable Primary Care Provider Unavailabl e Encounter Details Date Type Department Care Team (Late st Contact Info) Description 04/08/2021 Transcribed Document [facility] [place] [facility] [address] ProviderJuan Carlos MD [address] [place] [address] Social History Tobacco Use [...] Carlos ProviderMD - 04/08/2021 12:05 AM CDT [place] [phone] LIBERTAD WEBBNE :2000 Visit Time:04/07/2021 Your Visit [...] take Tylenol as needed. Follow-up with your TREE SURGEON HELPER. Allergies No Known Medication Allergies Immunizations This [...] areas. Get rest and stay hydrated. Take ghfo-bgb-xvrlaay medicines, such as acetaminophen, to help you [...] provider. Document Revised: 07/10/2020 Document Reviewed: 07/10/2020 ElseT2 Systems Patient Education ?? 2020 Edevate Inc. COVID-19: How to Protect Yourself and Others Know how it spreads ??? There is currently no vaccine to prevent coronavirus disease 2019 (COVID-19). ??? The best way to prevent illness is to avoid being exposed to this virus. ??? The virus is thought to spread mainly from zdbxkh-st-jclaqz. ? Between people who are in close [...] are not readily available, use a hand director independent that contains at least 60% alcohol. Cover [...] are at higher risk of getting very sick.www.cdc.gov/coronavirus/2019-ncov/lray-vznkt-uycvbixfqhp/qhmggn-wg-fybnvk -risk.html Cover your mouth and nose with [...] available, clean your hands with a hand director independent that contains at least 60% alcohol. Clean and disinfect ??? Clean AND disinfect frequently touched surfaces daily. This includes tables, doorknobs, light switches, countertops, handles, desks, phones, keyboards, toilets, faucets, and sinks. www.cdc.gov/coronavirus/2019-ncov/fbfxtqy-hkslvcz-yxjh/hwbvzksxjuli-nktj-llqn. html ??? If surfaces are dirty, clean [...] Reviewed: 02/14/2020 Elsevier Patient Education ?? 2020 [employer]ling. COVID-19 Frequently Asked Questions COVID-19 (coronavirus disease) [...] the coronavirus come from? In July 2019, [place] told the World Health Organization (WHO) about several cases of lung disease (human respiratory illness). These cases were linked to an open seafood and livestock market in the [facility] of [facility]. The link to the seafood [...] and virus naming ??? World Health Organization: www.who.int/emergencies/diseases/nsasr-vfevnzjtfnq-7407/technical-guidance Who is at risk for complications from [...] are not available, use alcohol-based hand director independent. ??? Avoid touching your face, mouth, nose, [...] (CDC): www.cdc.gov/coronavirus/2019-ncov/travelers ??? World Health Organization (WHO): www.who.int/emergencies/diseases/oxzeh-acwfxntngbr-3483/travel-advice What should I do if I am sick? General instructions to stop the spread of infection ??? Wash your hands often with soap and water for at least 20 seconds. If soap and water are not available, use alcohol-based hand director independent. ??? Cough or sneeze into a tissue, [...] in hot, soapy water or use a straightedge worker. Air-dry your dishes. ??? Wash laundry in [...] Organization (WHO) ??? Information and news updates: www.who.int/emergencies/diseases/vvaoa-dxlbfgqhpvw-9180 ??? Coronavirus health topic: www.who.int/health-topics/coronavirus ??? Questions and answers on COVID-19: www.who.int/news-room/q-a-detail/a-a-ssfdewtvhuusp ??? Global tracker: [employer] F[place] Academy of Pediatrics (AAP) ??? Information for families: www.healthychildren.org/Turkmen/health-issues/conditions/chest-lungs/Pages/201 3-Iahex-Bwggawfadxo.aspx The coronavirus situation is changing rapidly. Check [...] provider. Document Revised: 07/22/2020 Document Reviewed: 07/22/2020 Edevate Patient Education ?? 2020 Bent Pixelsvier Inc. Emergency Awareness and Preventative Care STROKE [...] Assistance with quitting is available by contacting 9-348-MATENOW. This is a free resource providing counseling, support, and referral. Or you may contact your personal physician. [employer] Suicide Prevention Lifeline: The National Suicide Prevention [...] was given the opportunity to ask questions. Patient/Starcher And Tenter Range Feeder Name: Patient/Starcher And Tenter Range Feeder Signature: Relationship to Patient: Clinician/Hospital Starcher And Tenter Range Feeder Signature: Please Provide a Telephone Number Where You Can Be Reached: Is it Permissible To Leave a Message? Date: Electronically signed by [facility] Conversion Adjuster Leader Yu at 11/21/2022 11:32 PM CDT documented in this encounter Plan of Treatment Not on file documented as of this encounter Visit Diagnoses Not on filedocumented in this encounter
--- OUTSIDE RECORDS SUMMARY | 2025-04-22 10:35 | XMS_ITS | Encounter Summary ---
Author Organization [employer] ([place], [place], [place], [place]) Address [address] [place] [address] Care Team Providers Care Public Health Administrator Name Role Phone Unavailable Primary Care Provider Unavailabl e Encounter Details Date Type Department Care Team (Late st Contact Info) Description 04/10/2021 Transcribed Document [facility] Radiology [address] [place] [address] Herbie Srivastava MD [address] [place] [address] Dept. [place] [address] Social History Tobacco Use Types [...] AM EDT Electronically signed by Chana [facility] Conversion Personnel Worker Cerner at 11/21/2022 11:49 PM CDT documented in this encounter Plan of Treatment Not on file documented as of this encounter Visit Diagnoses Not on filedocumented in this encounter
--- NOTE | 2025-04-22 11:00 | US_ITS ---
FINAL REPORT CLINICAL HISTORY: N13.30 - Unspecified hydronephrosis FINDINGS: RENAL ULTRASOUND Ultrasound images of the kidneys were obtained. Limited images of the liver parenchyma demonstrates normal echogenicity. The right kidney measures 11.6 cm in length. It is normal echogenicity. There is no hydronephrosis. The left kidney measures 10.1 cm in length. It is normal echogenicity. There is no hydronephrosis. IMPRESSION: Normal renal ultrasound. Reviewed, Interpreted and Dictated by Mike Jacobson MD Transcribed by Irina Valencia Authenticated and [facility]
== END 2025-04-22 23:59 | disposition home or self-care (01) ==
LOC: RAD 10:32
PROVIDERS: PCP Obstetrics & Gynecology; Visit Provider Obstetrics & Gynecology
DX: N13.30 Unspecified hydronephrosis (principal)
CPT/HCPCS: 76770

== ENCOUNTER 2025-05-01 16:44 | Emergency (ER) | payer OTHER, SELFPAY ==
[2025-05-01 16:50] VITALS: BP 130/70; PULSE 85; RESP 20; TEMP 36.8; O2SAT 100; BMI 24.4
--- OUTSIDE RECORDS SUMMARY | 2025-05-01 17:00 | XMS_ITS | Referral Summary ---
Author Organization [employer] ([place], [place], [place], [place]) Address [address] [place] [address] Care Team Providers Care Barrel Loader Name Role Phone Unavailable Primary Care Provider [...]
--- OUTSIDE RECORDS SUMMARY | 2025-05-01 17:00 | XMS_ITS | Encounter Summary ---
Author Organization [employer] ([place], [place], [place], [place]) Address [address] [place] [address] Care Team Providers Care Salesperson Burial Needs Name Role Phone Unavailable Primary Care Provider Unavailabl e Encounter Details Date Type Department Care Team (Late st Contact Info) Description 04/10/2021 Transcribed Document [facility] Family Medicine [address] [place] [address] ProviderJuan Carlos MD [address] [place], [place] [id number] Social History Tobacco Use Types Packs/Day Years [...]
--- OUTSIDE RECORDS SUMMARY | 2025-05-01 17:00 | XMS_ITS | Encounter Summary ---
Author Organization [employer] ([place], [place], [place], [place]) Address [address] [place] [address] Care Team Providers Care Clinical Research Administrator Name Role Phone Unavailable Primary Care Provider Unavailabl e Encounter Details Date Type Department Care Team (Late st Contact Info) Description 04/08/2021 Transcribed Document [facility] [place] [facility] [place] [address] ProviderJuan Carlos MD [address] [place] [address] Social History Tobacco Use Types [...]
--- OUTSIDE RECORDS SUMMARY | 2025-05-01 17:00 | XMS_ITS | Encounter Summary ---
Author Organization [employer] ([place], [place], [place], [place]) Address [address] [place] [address] Care Team Providers Care Gynaecological Oncologist Name Role Phone Unavailable Primary Care Provider Unavailabl e Encounter Details Date Type Department Care Team (Late st Contact Info) Description 04/10/2021 Transcribed Document [facility] [place] Family Medicine [facility] [place] [address] ProviderJuan Carlos MD [address] [place] [address] Social History Tobacco Use Types [...] Cavazos MD - 04/10/2021 8:46 AM CDT [place] [id number] LIBERTAD DE LEONNE :2000 Visit Time:04/10/2021 Your [...] or High Risk [phone] [address]: [address] [place] [phone]- [facility] (1) Follow Up with For a clinic referral service , just dial: [phone] (WELL) Our experts will provide you with [...] water are not available, use alcohol-based hand employment interviewer. ??? Avoid touching your mouth, face, eyes, [...] pump parts after expressing milk. Follow the quality rn's instructions to clean and disinfect all pump [...] (CDC): www.cdc.gov/coronavirus/2019-ncov/ ??? World Health Organization (WHO): www.who.int/news-room/q-a-detail/f-m-vl-jeulw-93-cztpvsemd-oyxhjoosnl-xti-bvgh stfeeding ??? [place] College of Obstetricians and Gynecologists (ACOG): www.acog.org/patient-resources/faqs//ajoifadcwth-cdpzkmjnf-qip-breast feeding Questions to ask your health care [...] provider. Document Revised: 07/25/2020 Document Reviewed: 07/25/2020 ReactX Patient Education ?? 2020 Neptune.io. 10 Things You Can Do to Manage [...] clean your hands with an alcohol-based hand employment interviewer that contains at least 60% alcohol. 8. [...] Reviewed: 07/10/2020 Elsevier Patient Education ?? 2020 ReactX Inc. Emergency Awareness and Preventative Care STROKE [...] Assistance with quitting is available by contacting 0-960-LNJMNOW. This is a free resource providing counseling, support, and referral. Or you may contact your personal physician. [employer] Suicide Prevention Lifeline: The National Suicide Prevention [...] was given the opportunity to ask questions. Patient/Electronics Technician Name: Patient/Electronics Technician Signature: Relationship to Patient: Clinician/Hospital Electronics Technician Signature: Please Provide a Telephone Number Where You Can Be Reached: Is it Permissible To Leave a Message? Date: Electronically signed by Chana [facility] Conversion Adult Manager Yu at 11/21/2022 11:37 PM CDT documented in this encounter Plan of Treatment Not on file documented as of this encounter Visit Diagnoses Not on filedocumented in this encounter
--- OUTSIDE RECORDS SUMMARY | 2025-05-01 17:00 | XMS_ITS | Encounter Summary ---
Author Organization [employer] ([place], [place], [place], [place]) Address [address] [place] [address] Care Team Providers Care Inclusion Paraeducator Name Role Phone Unavailable Primary Care Provider Unavailabl e Encounter Details Date Type Department Care Team (Late st Contact Info) Description 04/11/[address] [facility] [place] Family Medicine [facility] [place] [address] ProviderJuan Carlos MD [facility] [place] [address] Social History Tobacco Use [...] : 3 - Urgent Tracking Group : [facility] ED [facility] Harleen Brown RN - 04/11/2021 10:10 [...] caused by 2019 novel coronavirus (SNOMED CT :[id number] ) Name of Problem: Disease caused by 2019 novel coronavirus ; Recorder: SYSTEM, SYSTEM; Confirmation: Confirmed ; Classification: Medical ; Code: [id number] ; Last Updated: 04/07/2021 22:55 EDT ; Life Cycle Date: 04/07/2021 ; Life Cycle Status: Active ; Vocabulary: SNOMED CT ; Comments: 04/07/2021 22:55 - SYSTEM, SYSTEM Problem added by a rule: [id number]. Diagnoses(Active) Vaginal bleeding Date: 04/11/2021 ; Diagnosis Type: Reason For Visit ; Confirmation: Complaint of ; Clinical Dx: Vaginal bleeding ; Classification: Medical ; Clinical Service: Non-Specified ; Code: PNED ; Probability: 0 ; Diagnosis Code: [id number] ED Height and Weight Height Source : Measured Height Entry Format : [place] Height, Feet : 5 ft(Converted to: 152 cm, 60 Inch) Height, Inches : 7 Inch(Converted to: 0 ft 7 Inch, 17.78 cm) Clinical Height : 170.18 cm Weight Source, ED : Standing scale Weight Entry Format : [place] Weight, Pounds : 128 lb Clinical Dosing Weight : 58.18 kg Body Surface Area (BSA) : 1.67 m2 Body Mass Index : 20.1 kg/m2 [place] Body Weight (IBW) : 61.16 kg Harleen Brown RN - 04/11/2021 10:10 EDT documented in this encounter Plan of Treatment Not on file documented as of this encounter Visit Diagnoses Not on filedocumented in this encounter
--- OUTSIDE RECORDS SUMMARY | 2025-05-01 17:00 | XMS_ITS | Encounter Summary ---
Author Organization [employer] ([place], [place], [place], [place]) Address [address] [place] [address] Care Team Providers Care Printed Circuit Board Pcb Designer Name Role Phone Unavailable Primary Care Provider Unavailabl e Encounter Details Date Type Department Care Team (Late st Contact Info) Description 04/11/2021 Transcribed Document [facility] [place] Family Medicine [facility] [place] [address] ProviderJuan Carlos MD [address] [place] [address] Social History Tobacco Use Types [...] - 04/11/2021 2:23 PM CDT [place] [phone] LIBERTAD WEBBNE :2000 Visit Time:04/11/2021 Your Visit [...] pelvic rest as discussed. Follow-up with your EDITOR GREETING CARD in 2 days for repeat assessment. Allergies [...] provider. Document Revised: 08/31/2018 Document Reviewed: 10/21/2017 Listiki Patient Education ?? 2020 Listiki Inc. Vaginal Bleeding During , First Trimester [...] this is safe. General instructions ??? Take gewr-qit-rdeiisl and prescription medicines only as told by [...] provider. Document Revised: 11/13/2019 Document Reviewed: 10/27/2017 ElseInformance International Patient Education ?? 2020 Listiki Inc. Subchorionic Hematoma A subchorionic hematoma is [...] Reviewed: 09/20/2017 Elsevier Patient Education ?? 2020 Listiki Inc. Emergency Awareness and Preventative Care STROKE [...] Assistance with quitting is available by contacting 6-658-YIMENOW. This is a free resource providing counseling, support, and referral. Or you may contact your personal physician. [employer] Suicide Prevention Lifeline: The National Suicide Prevention [...] was given the opportunity to ask questions. Patient/Brand Ambassador Name: Patient/Brand Ambassador Signature: Relationship to Patient: Clinician/Hospital Brand Ambassador Signature: Please Provide a Telephone Number Where You Can Be Reached: Is it Permissible To Leave a Message? Date: documented in this encounter Plan of Treatment Not on file documented as of this encounter Visit Diagnoses Not on filedocumented in this encounter
--- OUTSIDE RECORDS SUMMARY | 2025-05-01 17:00 | XMS_ITS | Encounter Summary ---
Author Organization [employer] ([place], [place], [place], [place]) Address [address] [place] [address] Care Team Providers Care Music Video Director Name Role Phone Unavailable Primary Care Provider Unavailabl e Encounter Details Date Type Department Care Team (Late st Contact Info) Description 04/07/2021 Transcribed Document [place] Family Medicine [address] [place] [address] ProviderJuan Carlos MD [address], [place] [id number] Social History Tobacco Use Types Packs/Day Years [...]
--- OUTSIDE RECORDS SUMMARY | 2025-05-01 17:00 | XMS_ITS | Encounter Summary ---
Author Organization [employer] ([place], [place], [place], [place]) Address [address] [place] [address] Care Team Providers Care Abstract Clerk Name Role Phone Unavailable Primary Care Provider Unavailabl e Encounter Details Date Type Department Care Team (Late st Contact Info) Description 04/08/2021 Transcribed Document [facility] Family Medicine [facility] [place] [address] ProviderJuan Carlos MD [address] [place] [address] Social History Tobacco Use Types [...] Carlos ProviderMD - 04/08/2021 12:05 AM CDT [place] [id number] LIBERTAD WEBBNE :2000 Visit Time:04/07/2021 Your Visit [...] take Tylenol as needed. Follow-up with your SADDLE AND HARNESS MAKER. Allergies No Known Medication Allergies Immunizations This [...] areas. Get rest and stay hydrated. Take diwt-lnc-iyicctr medicines, such as acetaminophen, to help you [...] provider. Document Revised: 07/10/2020 Document Reviewed: 07/10/2020 ElseBeamExpress Patient Education ?? 2020 [employer] Inc. COVID-19: How to Protect Yourself and Others Know how it spreads ??? There is currently no vaccine to prevent coronavirus disease 2019 (COVID-19). ??? The best way to prevent illness is to avoid being exposed to this virus. ??? The virus is thought to spread mainly from fhypkq-ud-xjfgue. ? Between people who are in close [...] are not readily available, use a hand adult school teacher that contains at least 60% alcohol. [...] are at higher risk of getting very sick.www.cdc.gov/coronavirus/2019-ncov/gfql-ilcls-rmgvckvgtcl/mghtde-kj-sweofh -risk.html Cover your mouth and nose with [...] available, clean your hands with a hand adult school teacher that contains at least 60% alcohol. Clean and disinfect ??? Clean AND disinfect frequently touched surfaces daily. This includes tables, doorknobs, light switches, countertops, handles, desks, phones, keyboards, toilets, faucets, and sinks. www.cdc.gov/coronavirus/2019-ncov/wzrtlwc-avkkuir-jzyp/mhtmiqhfacem-uwgs-upvq. html ??? If surfaces are dirty, clean [...] Reviewed: 02/14/2020 Elsevier Patient Education ?? 2020 [employer]. COVID-19 Frequently Asked Questions COVID-19 (coronavirus disease) [...] the coronavirus come from? In July 2019, [place] told the World Health Organization (WHO) about several cases of lung disease (human respiratory illness). These cases were linked to an open seafood and livestock market in the [facility]. The link to the seafood and [...] and virus naming ??? World Health Organization: www.who.int/emergencies/diseases/iiwxw-tjfjsvkaehq-0905/technical-guidance Who is at risk for complications from [...] water are not available, use alcohol-based hand adult school teacher. ??? Avoid touching your face, mouth, [...] (CDC): www.cdc.gov/coronavirus/2019-ncov/travelers ??? World Health Organization (WHO): www.who.int/emergencies/diseases/djzyq-waxxjnjyrmn-1762/travel-advice What should I do if I am sick? General instructions to stop the spread of infection ??? Wash your hands often with soap and water for at least 20 seconds. If soap and water are not available, use alcohol-based hand adult school teacher. ??? Cough or sneeze into a [...] in hot, soapy water or use a safety investigator. Air-dry your dishes. ??? Wash laundry in [...] Organization (WHO) ??? Information and news updates: www.who.int/emergencies/diseases/dcmqb-quznliaasbe-7028 ??? Coronavirus health topic: www.who.int/health-topics/coronavirus ??? Questions and answers on COVID-19: www.who.int/news-room/q-a-detail/r-n-ebkwuffzhktzo ??? Global tracker: NetWitness.Vibrow [place] Academy of Pediatrics (AAP) ??? Information for families: www.healthychildren.org/Filipino/health-issues/conditions/chest-lungs/Pages/201 4-Pybes-Mkdzirkhcor.aspx The coronavirus situation is changing rapidly. Check [...] provider. Document Revised: 07/22/2020 Document Reviewed: 07/22/2020 [employer] Solutions Patient Education ?? 2020 [employer] Inc. Emergency Awareness and Preventative Care STROKE [...] Assistance with quitting is available by contacting 6-148-JLQFNOW. This is a free resource providing counseling, support, and referral. Or you may contact your personal physician. [employer] Suicide Prevention Lifeline: The National Suicide Prevention [...] was given the opportunity to ask questions. Patient/Cork Tile Floor Layer Name: Patient/Cork Tile Floor Layer Signature: Relationship to Patient: Clinician/Hospital Cork Tile Floor Layer Signature: Please Provide a Telephone Number Where You Can Be Reached: Is it Permissible To Leave a Message? Date: Electronically signed by [facility], [facility] Conversion Batch Room Technician Yu at 11/21/2022 11:32 PM CDT documented in this encounter Plan of Treatment Not on file documented as of this encounter Visit Diagnoses Not on filedocumented in this encounter
--- OUTSIDE RECORDS SUMMARY | 2025-05-01 17:00 | XMS_ITS | Encounter Summary ---
Author Organization [employer] ([place], [place], [place], [place]) Address [address] [place] [address] Care Team Providers Care Senior Research Engineer Name Role Phone Unavailable Primary Care Provider Unavailabl e Encounter Details Date Type Department Care Team (Late st Contact Info) Description 04/07/[address] 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 Denies any abdominal pain or [...] COVID-19: What Your Test Results Mean - [facility]. Follow up with: Follow up with primary care provider Within 2 to 3 days Call for follow up appointment. Return to the ER for any new or worsening symptoms as discussed, especially difficulty breathing or low O2 sat below 90%. Drink plenty of fluids and rest. You may take Tylenol as needed. Follow-up with your PROCESS SERVER.; , Follow up with primary care provider Within 2 to 3 days Call for follow up appointment. Return to the ER for any new or worsening symptoms as discussed, especially difficulty breathing or low O2 sat below 90%. Drink plenty of fluids and rest. You may take Tylenol as needed. Follow-up with your PROCESS SERVER.. Counseled: Patient, Regarding diagnosis, Regarding diagnostic results, Regarding treatment plan, Patient indicated understanding of instructions. documented in this encounter Plan of Treatment Not on file documented as of this encounter Visit Diagnoses Not on filedocumented in this encounter
--- OUTSIDE RECORDS SUMMARY | 2025-05-01 17:00 | XMS_ITS | Encounter Summary ---
Author Organization [employer] ([place], [place], [place], [place]) Address [address] [place] [address] Care Team Providers Care Brake Drum Molder Name Role Phone Unavailable Primary Care Provider Unavailabl e Encounter Details Date Type Department Care Team (Late st Contact Info) Description 04/07/2021 Transcribed Document [facility] Family Medicine [address] [place] [address] ProviderJuan Carlos MD [address] [place], [place] [id number] Social History Tobacco Use Types Packs/Day Years [...] Historical ProviderMD - 04/07/2021 7:59 PM CDT [place] Suicide Severity Rating Scale (C-SSRS) Entered On: 04/08/2021 0:17 EDT Performed On: 04/08/2021 0:16 EDT by MARIANA ESTEVES RN [place] Suicide Severity Rating Scale (C-SSRS) CSSRS Past [...]
--- OUTSIDE RECORDS SUMMARY | 2025-05-01 17:00 | XMS_ITS | Encounter Summary ---
Author Organization [employer] ([place], [place], [place], [place]) Address [address] [place] [address] Care Team Providers Care Client Relations Representative Name Role Phone Unavailable Primary Care Provider Unavailabl e Encounter Details Date Type Department Care Team (Late st Contact Info) Description 04/10/2021 Transcribed Document [facility] [place] Family Medicine [facility] [place] [address] ProviderJuan Carlos MD [facility] [place], [place] [id number] Social History Tobacco Use Types Packs/Day Years [...] Communication Barrier : None Primary Language : Cameroonian Any Spiritual/Cultural Needs or Requests : No [...] EDT Electronically signed by Rommel Zayas Conversion Still Operator Batch Or Continuous Cerner at 11/21/2022 11:44 PM CDT documented in this encounter Plan of Treatment Not on file documented as of this encounter Visit Diagnoses Not on filedocumented in this encounter
--- OUTSIDE RECORDS SUMMARY | 2025-05-01 17:00 | XMS_ITS | Encounter Summary ---
Author Organization [employer] ([place], [place], [place], [place]) Address [address] [place] [address] Care Team Providers Care Epidemiology Internship Name Role Phone Unavailable Primary Care Provider Unavailabl e Encounter Details Date Type Department Care Team (Late st Contact Info) Description 04/10/2021 Transcribed Document [facility] Radiology [address] [place] [address] Herbie Srivastava MD [address] [place] [address] Dept. of [place] [address] Social History Tobacco Use Types [...] 9:09 AM EDT Electronically signed by Chana [facility] Conversion Motor Tune Up Specialist Cerner at 11/21/2022 11:49 PM CDT documented in this encounter Plan of Treatment Not on file documented as of this encounter Visit Diagnoses Not on filedocumented in this encounter
--- OUTSIDE RECORDS SUMMARY | 2025-05-01 17:00 | XMS_ITS | Clinical Summary ---
Author Organization [employer] [facility] Address [address] [place] [phone] Phone Care Team Providers Care Tub Rider Name Role Phone Unavailable Unavailable Conditions or Problems No information available. Medications No information available. Medications Administered No information available. Allergies, Adverse Reactions, Alerts No information available. Results No information available. Plan of Care No information available. Procedures No information available. Vital Signs No information available. Immunizations No information available. Advance Directives No information available.
--- OUTSIDE RECORDS SUMMARY | 2025-05-01 17:00 | XMS_ITS | Encounter Summary ---
Author Organization [employer] ([place], [place], [place], [place]) Address [address] [place] [address] Care Team Providers Care Sole Molder Name Role Phone Unavailable Primary Care Provider Unavailabl e Encounter Details Date Type Department Care Team (Late st Contact Info) Description 04/11/2021 Transcribed Document [facility] Family Medicine [facility] [place] [address] ProviderJuan Carlos MD [facility] [place] [address] Social History Tobacco Use Types [...] 04/11/2021 14:35 EDT Electronically signed by Chana [facility] Conversion Child Care Assistant Cerner at 11/21/2022 11:36 PM CDT documented in this encounter Plan of Treatment Not on file documented as of this encounter Visit Diagnoses Not on filedocumented in this encounter
--- OUTSIDE RECORDS SUMMARY | 2025-05-01 17:00 | XMS_ITS | Encounter Summary ---
Author Organization [employer] ([place], [place], [place], [place]) Address [address] [place] [address] Care Team Providers Care Call Or Contact Centre Team Leader Name Role Phone Unavailable Primary Care Provider Unavailabl e Encounter Details Date Type Department Care Team (Late st Contact Info) Description 04/10/2021 Transcribed Document [facility] Family Medicine [facility] [address] ProviderJuan Carlos MD [facility] [place] [address] Social History Tobacco Use Types [...]
--- OUTSIDE RECORDS SUMMARY | 2025-05-01 17:00 | XMS_ITS | Encounter Summary ---
Author Organization [employer] ([place], [place], [place], [place]) Address [address] [place] [address] Care Team Providers Care Ip Litigation Associate Name Role Phone Unavailable Primary Care Provider Unavailabl e Encounter Details Date Type Department Care Team (Late st Contact Info) Description 04/11/2021 Transcribed Document [facility] [place] Medicine [address] [place] [address] ProviderJuan Carlos MD [address] [place], [place] [id number] Social History Tobacco Use Types Packs/Day Years [...]
--- OUTSIDE RECORDS SUMMARY | 2025-05-01 17:00 | XMS_ITS | Encounter Summary ---
Author Organization [employer] ([place], [place], [place], [place]) Address [address] [place] [address] Care Team Providers Care Creative Producer Name Role Phone Unavailable Primary Care Provider Unavailabl e Encounter Details Date Type Department Care Team (Late st Contact Info) Description 04/11/2021 Transcribed Document [facility] Family Medicine On license of [facility] [place] [address] ProviderJuan Carlos MD On license of [facility] [place], [place] [id number] Social History Tobacco Use Types Packs/Day Years [...] Communication Barrier : None Primary Language : Rwandan Any Spiritual/Cultural Needs or Requests : No [...]
--- OUTSIDE RECORDS SUMMARY | 2025-05-01 17:00 | XMS_ITS | Encounter Summary ---
Author Organization [employer] ([place], [place], [place], [place]) Address [address] [place] [address] Care Team Providers Care Program Coordinator Executive Education Name Role Phone Unavailable Primary Care Provider Unavailabl e Encounter Details Date Type Department Care Team (Late st Contact Info) Description 04/11/2021 Transcribed Document [facility] [place] Family Medicine [facility] [place] [address] ProviderJuan Carlos MD [place] [address] Social History Tobacco Use Types [...] Patient reports brownish-red vaginal spotting that is machine setter and repairer than her menstrual period. This began yesterday and has continued today. She denies any abdominal pain or pelvic cramping. Also denies fever, nausea/vomiting, vaginal discharge. Patient tested positive for COVID-19 4 days ago and yesterday received the monoclonal antibody infusion. She currently follows with an CRIMPING MACHINE OPERATOR FOR METAL at [facility], however is in the process of transitioning [...] April 11, 2021 14:10 EDT Encounter info: [id number], BEREKET Diaz [facility], Emergency Room, 04/11/2021 - 04/11/2021 [...] discussed strict pelvic rest and follow-up with CRIMPING MACHINE OPERATOR FOR METAL. Patient voices understanding and agreement with plan. [...] pelvic rest as discussed. Follow-up with your CRIMPING MACHINE OPERATOR FOR METAL in 2 days for repeat assessment., Follow up with primary care provider Within 2 to 3 days Call for follow up appointment. Return to the ER for any new or worsening symptoms as discussed, especially fever, persistent pelvic pain, vaginal bleeding greater than 2 pads/hour. Recommend pelvic rest as discussed. Follow-up with your CRIMPING MACHINE OPERATOR FOR METAL in 2 days for repeat assessment., Follow up with primary care provider Within 2 to 3 days Call for follow up appointment. Return to the ER for any new or worsening symptoms as discussed, especially fever, persistent pelvic pain, vaginal bleeding greater than 2 pads/hour. Recommend pelvic rest as discussed. Follow-up with your CRIMPING MACHINE OPERATOR FOR METAL in 2 days for repeat assessment.. Counseled: Patient, Regarding diagnosis, Regarding diagnostic results, Regarding treatment plan, Patient indicated understanding of instructions. documented in this encounter Plan of Treatment Not on file documented as of this encounter Visit Diagnoses Not on filedocumented in this encounter
--- OUTSIDE RECORDS SUMMARY | 2025-05-01 17:00 | XMS_ITS | Encounter Summary ---
Author Organization [employer] ([place], [place], [place], [place]) Address [address] [place] [address] Care Team Providers Care Clip And Hanger Attacher Name Role Phone Unavailable Primary Care Provider Unavailabl e Encounter Details Date Type Department Care Team (Late st Contact Info) Description 04/07/2021 Transcribed Document [facility] Family Medicine [facility] [place] [address] ProviderJuan Carlos MD [address] [place] [address] Social History Tobacco Use Types [...] 11:58 PM CDT Electronically signed by Chana [facility] Conversion Angular Js Developer Martinener at 11/21/2022 11:36 PM CDT documented in this encounter Plan of Treatment Not on file documented as of this encounter Visit Diagnoses Not on filedocumented in this encounter
--- OUTSIDE RECORDS SUMMARY | 2025-05-01 17:00 | XMS_ITS | Encounter Summary ---
Author Organization [employer] ([place], [place], [place], [place]) Address [address] [place] [address] Care Team Providers Care Separations Scientist Name Role Phone Unavailable Primary Care Provider Unavailabl e Encounter Details Date Type Department Care Team (Late st Contact Info) Description 04/10/2021 Transcribed Document [facility] [place] [facility] [place] [address] ProviderJuan Carlos MD [address] [place] [address] Social History Tobacco Use Types [...] Cavazos MD - 04/10/2021 8:45 AM CDT [place] [id number] LIBERTAD DE LEONNE :2000 Visit Time:04/10/2021 Your [...] or High Risk [phone] [address]: [address] [place] [id number]- [facility] (1) Follow Up with For a clinic referral service , just dial: [phone] (WELL) Our experts will provide you with [...] water are not available, use alcohol-based hand electroplating worker. ??? Avoid touching your mouth, face, eyes, [...] pump parts after expressing milk. Follow the development mgr's instructions to clean and disinfect all pump [...] (CDC): www.cdc.gov/coronavirus/2019-ncov/ ??? World Health Organization (WHO): www.who.int/news-room/q-a-detail/d-g-vz-irstm-57-iekfuanhm-piogxdhpgd-hsq-jbca stfeeding ??? [place] [employer] Obstetricians and Gynecologists (ACOG): www.acog.org/patient-resources/faqs//zsqsewuywof-owbihapml-rpw-breast feeding Questions to ask your health care [...] provider. Document Revised: 07/25/2020 Document Reviewed: 07/25/2020 In[employer] Patient Education ?? 2020 [employer]. 10 Things You Can Do to Manage [...] clean your hands with an alcohol-based hand electroplating worker that contains at least 60% alcohol. 8. [...] Reviewed: 07/10/2020 Elsevier Patient Education ?? 2020 In[employer]Vital Systems Inc. Emergency Awareness and Preventative Care [...] Assistance with quitting is available by contacting 7-842-FHFMNOW. This is a free resource providing counseling, support, and referral. Or you may contact your personal physician. [employer] Suicide Prevention Lifeline: The National Suicide Prevention [...] was given the opportunity to ask questions. Patient/Camera Tuning Engineer Name: Patient/Camera Tuning Engineer Signature: Relationship to Patient: Clinician/Hospital Camera Tuning Engineer Signature: Please Provide a Telephone Number Where You Can Be Reached: Is it Permissible To Leave a Message? Date: documented in this encounter Plan of Treatment Not on file documented as of this encounter Visit Diagnoses Not on filedocumented in this encounter
--- OUTSIDE RECORDS SUMMARY | 2025-05-01 17:00 | XMS_ITS | Encounter Summary ---
Author Organization [employer] ([place], [place], [place], [place]) Address [address] [place] [address] Care Team Providers Care Control Room Tender Name Role Phone Unavailable Primary Care Provider Unavailabl e Encounter Details Date Type Department Care Team (Late st Contact Info) Description 04/10/[address] [facility] Family Medicine Counts include 234 beds at the [facility] [place] [address] ProviderJuan Carlos MD Counts include 234 beds at the [facility] [place] [address] Social History Tobacco Use Types [...] EDT DCP GENERIC CODE Tracking Group : [facility] Tracking Acuity : 3 - Urgent [...] caused by 2019 novel coronavirus (SNOMED CT :4010213010 ) Name of Problem: Disease caused by 2019 novel coronavirus ; Recorder: SYSTEM, SYSTEM; Confirmation: Confirmed ; Classification: Medical ; Code: [id number] ; Last Updated: 04/07/2021 22:55 EDT ; Life Cycle Date: 04/07/2021 ; Life Cycle Status: Active ; Vocabulary: SNOMED CT ; Comments: 04/07/2021 22:55 - SYSTEM, SYSTEM Problem added by a rule: [id number]. Diagnoses(Active) Medication administration Date: 04/10/2021 ; Diagnosis Type: Reason For Visit ; Confirmation: Complaint of ; Clinical Dx: Medication administration ; Classification: Medical ; Clinical Service: Emergency medicine ; Code: PNED ; Probability: 0 ; Diagnosis Code: [id number] ED Height and Weight Height Source : Measured Height Entry Format : [place] Height, Feet : 5 ft(Converted to: 152 cm, 60 Inch) Height, Inches : 7 Inch(Converted to: 0 ft 7 Inch, 17.78 cm) Clinical Height : 170.18 cm Weight Source, ED : Standing scale Weight Entry Format : [place] Weight, Pounds : 128 lb Clinical Dosing Weight : 58.18 kg Body Surface Area (BSA) : 1.67 m2 Body Mass Index : 20.1 kg/m2 [place] Body Weight (IBW) : 61.16 kg KIYA [...]
--- OUTSIDE RECORDS SUMMARY | 2025-05-01 17:00 | XMS_ITS | Encounter Summary ---
Author Organization [email or web address] ([place], [place], [place], [place]) Address [address] [place] [address] Care Team Providers Care Plastics Tooling Engineer Name Role Phone Unavailable Primary Care Provider Unavailabl e Encounter Details Date Type Department Care Team (Late st Contact Info) Description 04/10/2021 Transcribed Document [facility] Radiology [address] [place] [address] Herbie Méndez MD [address] [place] [address] Dept[place] [address] Social History Tobacco Use Types [...] 1-Time . Notes: spoke to multiple Ob nutrition specialist, with recomendations, patient remains stable, [place] [...] a clinic referral service , just dial: [phone] (WELL) Our experts will provide you with [...]
--- OUTSIDE RECORDS SUMMARY | 2025-05-01 17:00 | XMS_ITS | Encounter Summary ---
Author Organization [employer] ([place], [place], [place], [place]) Address [address] [place] [address] Care Team Providers Care Casting Machine Set Up Operator Name Role Phone Unavailable Primary Care Provider Unavailabl e Encounter Details Date Type Department Care Team (Late st Contact Info) Description 04/08/2021 Transcribed Document [facility] Family Medicine [facility] [place] [address] ProviderJuan Carlos MD [facility] [place], [place] [id number] Social History Tobacco Use Types Packs/Day Years [...]
--- OUTSIDE RECORDS SUMMARY | 2025-05-01 17:00 | XMS_ITS | Clinical Summary ---
Author Organization [facility] Address [address] [place] [address] Care Team Providers Care Facility Security Officer Name Role Phone Provider, No Known Primary [...] SCREENING 10/30/2024 11/30/2022, 03/29/2020, 03/29/2020 INFLUENZA VACCINE 03/08/2025 05/09/2013, , 08/13/2008, Additional history exists TDAP/TD VACCINES (3 - Td or Tdap) 08/20/2031 022, 04/04/2013 Pneumococcal Vaccine 0-49 Completed 2008, 01/03/2003, 06/21/2002, Additional history exists HEPATITIS C SCREENING Completed 04/30/2021, 021 RSV Vaccine - Adults (No Dos es Required) Completed Insurance COUNTS INCLUDE [facility]S [facility] Care Teams Facility Security Officer Relationship Specialty Start Date End Date Provider, No Known [facility] [place] [address] PCP - General 10/26/24
--- OUTSIDE RECORDS SUMMARY | 2025-05-01 17:00 | XMS_ITS | Encounter Summary ---
Author Organization [employer] ([place], [place], [place], [place]) Address [address] [place] [address] Care Team Providers Care Maintenance Mechanic Helper Name Role Phone Unavailable Primary Care Provider Unavailabl e Encounter Details Date Type Department Care Team (Late st Contact Info) Description 04/11/2021 Transcribed Document [facility] [place] Family Medicine [facility] [place] [address] ProviderJuan Carlos MD [address] [place] [address] Social History Tobacco Use Types [...]
--- OUTSIDE RECORDS SUMMARY | 2025-05-01 17:00 | XMS_ITS | Encounter Summary ---
Author Organization [employer] ([place], [place], [place], [place]) Address [address] [place] [address] Care Team Providers Care Cloth Cutter Name Role Phone Unavailable Primary Care Provider Unavailabl e Encounter Details Date Type Department Care Team (Late st Contact Info) Description 04/11/2021 Transcribed Document [facility] [place] [facility] [place] [address] ProviderJuan Carlos MD [address] [place] [address] Social History Tobacco Use Types [...] 12:12 PM CDT Electronically signed by Chana [facility] Conversion Cover Operator Yu at 11/21/2022 11:35 PM CDT documented in this encounter Plan of Treatment Not on file documented as of this encounter Visit Diagnoses Not on filedocumented in this encounter
--- OUTSIDE RECORDS SUMMARY | 2025-05-01 17:00 | XMS_ITS | Encounter Summary ---
Author Organization [employer] ([place], [place], [place], [place]) Address [address] [place] [address] Care Team Providers Care Orange Picker Name Role Phone Unavailable Primary Care Provider Unavailabl e Encounter Details Date Type Department Care Team (Late st Contact Info) Description 04/07/2021 Transcribed Document [facility] [place] Medicine [facility] [place] [address] ProviderJuan Carlos MD [address] [place] [address] Social History Tobacco Use Types Packs/Day [...] - Non - Urgent Tracking Group : [facility] MARIANA ESTEVES RN - [...] PNED ; Probability: 0 ; Diagnosis Code: [id number] ED Height and Weight Height Source : Measured Height Entry Format : [place] Height, Feet : 5 ft(Converted to: 152 cm, 60 Inch) Height, Inches : 7 Inch(Converted to: 0 ft 7 Inch, 17.78 cm) Clinical Height : 170.18 cm Weight Source, ED : Standing scale Weight Entry Format : [place] Weight, Pounds : 128 lb Clinical Dosing Weight : 58.18 kg Body Surface Area (BSA) : 1.67 m2 Body Mass Index : 20.1 kg/m2 [place] Body Weight (IBW) : 61.16 kg MARIANA ESTEVES RN - 04/07/2021 21:15 EDT documented in this encounter Plan of Treatment Not on file documented as of this encounter Visit Diagnoses Not on filedocumented in this encounter
--- OUTSIDE RECORDS SUMMARY | 2025-05-01 17:00 | XMS_ITS | Encounter Summary ---
Author Organization [employer] ([place], [place]) Address [address] [place] [address] Care Team Providers Care Custodial Maintenance Worker Name Role Phone Unavailable Primary Care Provider Unavailabl e Encounter Details Date Type Department Care Team (Late st Contact Info) Description 04/10/2021 Transcribed Document [facility] [place] [facility] [place] [address] ProviderJuan Carlos MD [address] [place], [place] [id number] Social History Tobacco Use Types Packs/Day Years [...] Historical ProviderMD - 04/10/2021 5:27 AM CDT [place] Suicide Severity Rating Scale (C-SSRS) Entered On: 04/10/2021 6:47 EDT Performed On: 04/10/2021 6:46 EDT by Nasreen Aldridge RN-PATIENT CARE BEDSIDE NON-EXEMPT [place] Suicide Severity Rating Scale (C-SSRS) CSSRS Past [...]
--- OUTSIDE RECORDS SUMMARY | 2025-05-01 17:00 | XMS_ITS | Encounter Summary ---
Author Organization [employer] ([place], [place], [place], [place]) Address [address] [place] [address] Care Team Providers Care Dip Painter Name Role Phone Unavailable Primary Care Provider Unavailabl e Encounter Details Date Type Department Care Team (Late st Contact Info) Description 04/11/2021 Transcribed Document [facility] [place] [address] [place] [address] ProviderJuan Carlos MD [address] [place], [place] [id number] Social History Tobacco Use Types Packs/Day Years [...] Historical ProviderMD - 04/11/2021 9:48 AM CDT [place] Suicide Severity Rating Scale (C-SSRS) Entered On: 04/11/2021 12:05 EDT Performed On: 04/11/2021 12:04 EDT by Lacey Chau RN [place] Suicide Severity Rating Scale (C-SSRS) CSSRS Past Month Wish to be : No CSSRS Past Month Suicidal Thoughts : No CSSRS Lifetime Suicide Behavior : No Suicide Severity Rating Score : 0 Suicide Severity Rating : No Additional Care Required at this time Lacey Chau RN - 04/11/2021 12:04 EDT Electronically signed by Chana [facility] Conversion Community Health Planning Director Cerner at 11/21/2022 11:45 PM CDT documented in this encounter Plan of Treatment Not on file documented as of this encounter Visit Diagnoses Not on filedocumented in this encounter
--- OUTSIDE RECORDS SUMMARY | 2025-05-01 17:00 | XMS_ITS | Encounter Summary ---
Author Organization [employer] ([place], [place], [place], [place]) Address [address] [place] [address] Care Team Providers Care Instruction Assistant Principal Name Role Phone Unavailable Primary Care Provider Unavailabl e Encounter Details Date Type Department Care Team (Late st Contact Info) Description 04/11/2021 Transcribed Document [facility] [place] Family Medicine [address] [place] [address] ProviderJuan Carlos MD [address] [place], [place] [id number] Social History Tobacco Use Types Packs/Day Years [...]
--- OUTSIDE RECORDS SUMMARY | 2025-05-01 17:00 | XMS_ITS | Clinical Summary ---
Author Organization [email or web address] ([place], [place], [place], [place]) Address [address] [place] [address] Care Team Providers Care Wastewater Supervisor Name Role Phone Unavailable Primary Care [...]
--- OUTSIDE RECORDS SUMMARY | 2025-05-01 17:00 | XMS_ITS | Encounter Summary ---
Author Organization [employer] ([place], [place], [place], [place]) Address [address] [place] [address] Care Team Providers Care Supervisor Brooder Farm Name Role Phone Unavailable Primary Care Provider Unavailabl e Encounter Details Date Type Department Care Team (Late st Contact Info) Description 04/07/2021 Transcribed Document [facility] [place] [facility] [place] [address] ProviderJuan Carlos MD [facility] [place], [place] [id number] Social History Tobacco Use Types Packs/Day Years [...] Communication Barrier : None Primary Language : Hong Konger General Information Comment : seen by provider [...]
--- OUTSIDE RECORDS SUMMARY | 2025-05-01 17:01 | XMS_ITS | Clinical Summary ---
Author Organization Healthcare Address [address] [place] [id number] Care Team Providers Care Production Trainer Name Role Phone Krysten Burt MD Primary Care Provider [phone] Allergies No known active allergies Medications pseudoephedrine [...] Active Problems Problem Noted Date Diagnosed Date Nasal congestion 06/11/2021 Encounter to establish care 05/28/2021 Mood swings 05/28/2021 Anxiety 05/28/2021 Positive depression screening 05/28/2021 Comments Yes Resolved Problems Problem Noted Date Diagnosed Date Resolved Date Encounter for supervision of normal , antepartum 08/10/2024 04/28/2025 Sore throat 03/26/2022 04/28/2025 Cough 03/26/2022 04/28/2025 Sinus pressure 03/26/2022 04/28/2025 PROM (premature rupture of membranes) 10/23/2021 10/25/2021 Dichorionic diamniotic twin in third trimester 10/02/2021 10/25/2021 Overview (10/02/2021): Added automatically from request for surgery [id number] Immunizations Immunization Administration Dates Next Due Tdap [...] money to buy more. Never true 03/27/20 Within the past 12 months, t he [...] place to sleep or slept in a custodial (including now)? No 03/27/2024 Floyd Depression Scale Answer Date Recorded Floyd Depression Scale Total 8 12/07/2021 The thought [...] 12/01/2023 11/30/2022, 11/30/2022, 07/15/2022, Additional history exists [id number] Vaccine ( - season) 2025 UKY-Influenza Vaccine [...] Detected Not Detected 12/02/2022 9:37 AM EDT [facility] Swab Endocervical structure / Unknown Non-blood Collection / Unknown 11/30/2022 3:09 PM EDT 11/30/2022 4:07 PM EDT Narrative [facility] - 12/02/2022 9:37 AM EDT This test is performed by the [employer] m2000 instrument for Real Time PCR C. trachomatis and N. gonorrhea. This test is FDA approved for use with endocervical, vaginal, and urine specimens. This test is used for clinical purposes. It should not be regarded as invesigational or for research. The [facility] Clinical Microbiology Laboratory is certified under the Clinical Laboratory Improvement Amendments of 1988 (CLIA-88) as qualified to perform high complexity clinical laboratory testing. us Rhea Ramos MD LAB MICROBIOLOGY - GENERAL ORDERABLES Final Result [facility] [address] [place] [address] * Pap Test (11/30/2022 3:09 PM EDT) Case Report Cytology Case: [id number] Authorizing Provider: Rhea Ramos MD Collected: 11/30/2022 1509 Ordering Location: Medical Office Building Received: 11/30/2022 1616 Obstetrics and Gynecology First Screen: Shayy Gordon Specimen: ThinPrep Pap Test, Liquid-Based Cervical/Vaginal, CERVICAL/VAGINAL 12/06/2022 3:06 PM EDT [facility] Interpretation NEGATIVE FOR INTRAEPITHELIAL LESION OR MALIGNANCY 12/06/2022 3:06 PM EDT [facility] at 1506 EDT Specimen Adequacy Satisfactory for evaluation; endocervical/villanueva sformation zone component present. Slide imaged by the ThinPrep Imaging system and selected 22 corado reviewed then full manual screening. 12/06/2022 3:06 PM EDT [facility] Cervical cytology is a screening [...] results is suggested (please call Microbiology at [phone] for results). 12/06/2022 3:06 PM EDT [facility] Menstrual Status Cyclic 12/07/19 3:06 PM EDT [facility] Contraceptive History Not Applicable 12/06/2022 3:06 PM EDT [facility] Screening Type Routine Screen 2022 3:06 PM EDT [facility] High Risk? No 12/06/2022 3:06 PM EDT [facility] HPV Testing Requested? No HPV Testing Requested 12/06/2022 3:06 PM EDT [facility] Previous Cancer History No 12/06/2022 3:06 PM EDT [facility] Clinical Information R10.2 - Pelvic and perineal pain [ICD-10-CM] 12/06/2022 3:06 PM EDT [facility] Last Menstrual Period 10/25/2022 12/06/2022 3:06 PM EDT [facility] Swab Vaginal and cervical cytologic material / Unknown Non-blood Collection / Unknown 11/30/2022 3:09 PM EDT 11/30/2022 4:15 PM EDT Rhea Ramos MD LAB CYTOLOGY ORDERABLES Fi nal Result [facility] [address] [place] [address] * HIV 1 & 2 Antibody/Antigen Screen (04/30/2021 8:23 PM EDT) Pathologist [facility] HIV 1 & 2 Antibody/Anti gen Screen Nonreactive Nonreactive 04/30/2021 8:23 PM EDT [facility] Blood Venous blood specimen / Unknown 04/30/2021 3:09 PM EDT Rhea Ramos MD LAB BLOOD ORDERABLES Final Result Performing Organization Address City/[facility]/ZIP Co de Phone Number [facility] [address] [place] [address] * Hepatitis C Antibody (04/30/2021 8:21 PM EDT) Pathologist [facility] Hepatitis C Antibody Negative Negative 04/30/2021 8:21 PM EDT [facility] Blood Venous blood specimen / Unknown 04/30/2021 3:09 PM EDT Rhea Ramos MD LAB BLOOD ORDERABLES Final Result Performing Organization Address [facility] de Phone Number [facility] [address] [place] [address] from Last 3 Months or Most Recently Relevant to Health Maintenance Insurance MEDICAID Advance Directives * Full Code (Latest Code Status on File) Date Activated Date Inactivated Comments 10/23/2021 12:34 PM 10/26/2021 4:44 PM Question Answer Comments Patient has decision-making capacity? Yes Care Teams Production Trainer Relationship Specialty Start Date End Date Krysten Burt MD [address] [place] [address] PCP - General Adolescent Medicine 12/29/22
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
--- NOTE | 2025-05-01 17:29 | PC.NURSE ---
1 unsuccessful IV attempt by this RN, labs were able to be collected.
--- NOTE | 2025-05-01 17:31 | ECG_ITS ---
APPROVED REPORT Exam: Resting ECG HR:72 bpm ECG Measurements Heart Rate 72 AXES OK 212 P 70 QRSd 87 QRS 94 QT 395 T 50 QTc 419 Conclusion SINUS RHYTHM WITH FIRST DEGREE AV BLOCK BORDERLINE RIGHT AXIS DEVIATION [QRS AXIS > 90] ABNORMAL ECG Electronically signed by : ENZO ABDULLAHI, 05/02/2025 09:03:49
[2025-05-01] MEDS: MECLIZINE 25MG TABLET 25 MG PO (17:35)
[2025-05-01 17:38] LABS: Hematocrit 37.0 % (37.0-47.0); Hemoglobin 11.8 g/dL (12.2-16.2); Immature Granulocytes % 0.2 %; Mean Corpuscular HGB Conc 31.9 g/dL (31.8-35.4); Mean Corpuscular Hemoglobin 26.1 pg (27.0-31.2); Mean Corpuscular Volume 81.9 fl (81-99); Nucleated Red Blood Cells % 0 %; Platelet Count 288 K/mm3 (142-424); Red Blood Count 4.52 M/mm3 (4.20-5.40); Red Cell Distribution Width-SD 40.8 fL; White Blood Count 6.6 K/mm3 (4.8-10.8)
--- NOTE | 2025-05-01 17:42 | PC.NURSE ---
Attempted to start an IV on this patient and she expressed to me that another staff member stated that they were just going to try oral fluids, I spoke to the provider Dr. Werner and she stated that she did want an IV on this patient. I returned to speak to the patient and she was refusing the IV at this time. I notified the provider of her decision
[2025-05-01 17:47] LABS: Albumin Level 5.0 g/dl (3.5-5.0); Chloride 99 mmol/L (98-107)
[2025-05-01 17:48] LABS: Potassium 3.9 mmoL/L (3.5-5.1); Sodium 137 mmol/L (136-145)
[2025-05-01 17:50] LABS: Anion Gap 15.9 mEq/L (5-15); Blood Urea Nitrogen 19 mg/dl (7-17); Carbon Dioxide 26 mmol/L (22.0-30.0); Creatinine Clearance Estimated 98 mL/min (50-200); Creatinine,Serum 1.00 mg/dl (0.52-1.04); Estimated Glomerular Filt Rate 69 ml/min (>60); GFR (African American) 83 ML/MIN (>60)
[2025-05-01 17:51] LABS: Alanine Aminotransferase 31 U/L (12-78); Albumin/Globulin Ratio 1.7 (1.1-1.8); Alkaline Phosphatase 67 U/L (38-126); Aspartate Amino Transferase 44 U/L (14-36); Bilirubin,Total 0.5 mg/dl (0.2-1.3); Calcium 9.1 mg/dl (8.4-10.2); Globulin 2.9 g/dL (1.3-3.2); Glucose 95 mg/dl (74-100); Magnesium 2.0 mg/dl (1.6-2.3); Total Protein,Serum 7.9 g/dl (6.3-8.2)
[2025-05-01 18:01] LABS: HCG Qualitative, Serum Negative (Negative)
[2025-05-01 18:13] LABS: Troponin I < 0.01 ng/ml (0.00-0.034)
[2025-05-01 18:14] LABS: Free T4 (Free Thyroxine) 0.85 ng/dl (0.78-2.19)
[2025-05-01 18:22] LABS: Thyroid Stimulating Hormone 1.90 uIU/mL (0.465-4.68)
[2025-05-01 18:59] VITALS: BP 123/70; PULSE 74; RESP 16; TEMP 36.8; O2SAT 100
== END 2025-05-01 18:59 | disposition home or self-care (01) ==
PROVIDERS: Emergency Provider Student in an Organized Health Care Education/Training Program
DX: H81.10 Benign paroxysmal vertigo, unspecified ear (principal); R11.0 Nausea
CPT/HCPCS: 80053; 83735; 84439; 84443; 84484; 84703; 85025; 93005; 99283

== ENCOUNTER 2025-05-21 08:33 | Outpatient (CLI) | payer OTHER, SELFPAY ==
--- NOTE | 2025-05-21 08:30 | US_ITS ---
FINAL REPORT TECHNIQUE: Sonographic images of the right upper quadrant were obtained. CLINICAL HISTORY: polyps vs gallstones FINDINGS: PANCREAS: Unremarkable. LIVER: Homogeneous. No focal hepatic lesion. No intrahepatic biliary ductal dilatation. The portal vein is normal. GALLBLADDER: Echogenic foci along the nondependent gallbladder wall, could be polyps, largest measures 4 mm. No stones identified. No gallbladder wall thickening or pericholecystic fluid. COMMON DUCT: 3 mm. Normal for age. RIGHT KIDNEY: The right kidney measures 12.6 cm. There is no hydronephrosis, mass, or stone. FREE FLUID: None. IMPRESSION: Gallbladder polyps. Reviewed, Interpreted and Dictated by Yanet Dewey MD Transcribed by Skylar [place] [facility]hentic[facility] and [facility]
--- OUTSIDE RECORDS SUMMARY | 2025-05-21 08:56 | XMS_ITS | Encounter Summary ---
Author Organization [employer] ([place], [place], [place]) Address [address] [place] [address] Care Team Providers Care General Maintenance Engineer Name Role Phone Unavailable Primary Care Provider Unavailabl e Encounter Details Date Type Department Care Team (Late st Contact Info) Description 04/07/2021 Transcribed Document [facility] [place] [facility] [place] [address] ProviderJuan Carlos MD [address] [place] [address] Social History Tobacco Use Types [...] transitioning her care from her OB at [facility] her sleep as to a high [...] COVID-19: What Your Test Results Mean - [facility]. Follow up with: Follow up with primary care provider Within 2 to 3 days Call for follow up appointment. Return to the ER for any new or worsening symptoms as discussed, especially difficulty breathing or low O2 sat below 90%. Drink plenty of fluids and rest. You may take Tylenol as needed. Follow-up with your DIRECTOR ONCOLOGY.; , Follow up with primary care provider Within 2 to 3 days Call for follow up appointment. Return to the ER for any new or worsening symptoms as discussed, especially difficulty breathing or low O2 sat below 90%. Drink plenty of fluids and rest. You may take Tylenol as needed. Follow-up with your DIRECTOR ONCOLOGY.. Counseled: Patient, Regarding diagnosis, Regarding diagnostic results, Regarding treatment plan, Patient indicated understanding of instructions. documented in this encounter Plan of Treatment Not on file documented as of this encounter Visit Diagnoses Not on filedocumented in this encounter
--- OUTSIDE RECORDS SUMMARY | 2025-05-21 08:56 | XMS_ITS | Encounter Summary ---
Author Organization [employer] ([place], [place], [place], [place]) Address [address] [place] [address] Care Team Providers Care Milking Machine Operator Name Role Phone Unavailable Primary Care Provider Unavailabl e Encounter Details Date Type Department Care Team (Late st Contact Info) Description 04/07/2021 Transcribed Document [facility] [place] [address] [place] [address] ProviderJuan Carlos MD [address], [place] [id number] Social History Tobacco Use Types Packs/Day Years [...]
--- OUTSIDE RECORDS SUMMARY | 2025-05-21 08:56 | XMS_ITS | Encounter Summary ---
Author Organization [employer] ([place], [place], [place], [place]) Address [address] [place] [address] Care Team Providers Care Mobile Architect Name Role Phone Unavailable Primary Care Provider Unavailabl e Encounter Details Date Type Department Care Team (Late st Contact Info) Description 04/07/2021 Transcribed Document [facility] [place] [address] [place] [address] ProviderJuan Carlos MD [address] [place], [place] [id number] Social History Tobacco Use Types Packs/Day Years [...] Historical ProviderMD - 04/07/2021 7:59 PM CDT [place] Suicide Severity Rating Scale (C-SSRS) Entered On: 04/08/2021 0:17 EDT Performed On: 04/08/2021 0:16 EDT by MARIANA ESTEVES RN [place] Suicide Severity Rating Scale (C-SSRS) CSSRS [...]
--- OUTSIDE RECORDS SUMMARY | 2025-05-21 08:56 | XMS_ITS | Encounter Summary ---
Author Organization [employer] ([place], [place], [place], [place]) Address [address] [place] [address] Care Team Providers Care Coke Wheeler Name Role Phone Unavailable Primary Care Provider Unavailabl e Encounter Details Date Type Department Care Team (Late st Contact Info) Description 04/10/2021 Transcribed Document [facility] [place] [facility] [place] [address] ProviderJuan Carlos MD [address] [place] [address] Social History Tobacco Use Types [...] Cavazos MD - 04/10/2021 8:45 AM CDT [place] [id number] LIBERTAD DE LEONNE :2000 Visit Time:04/10/2021 Your [...] or High Risk 323 0005 [address] [place] [id number] (1) Follow Up with For a clinic referral service , just dial: [phone] (WELL) Our experts will provide you with [...] are not available, use alcohol-based hand manager sap. ??? Avoid touching your mouth, face, eyes, [...] pump parts after expressing milk. Follow the venue coordinator's instructions to clean and disinfect all [...] (CDC): www.cdc.gov/coronavirus/2019-ncov/ ??? World Health Organization (WHO): www.who.int/news-room/q-a-detail/a-e-xi-mfihf-96-vkegnszpq-gavimscfwg-tcs-dbep stfeeding ??? [place] [employer] (ACOG): www.acog.org/patient-resources/faqs//pdtlalsaqbt-mvakvmuiy-quf-breast feeding Questions to ask your health care [...] provider. Document Revised: 07/25/2020 Document Reviewed: 07/25/2020 [employer] Patient Education ?? 2020 [employer]. 10 Things You Can Do to Manage [...] your hands with an alcohol-based hand manager sap that contains at least 60% alcohol. 8. [...] Reviewed: 07/10/2020 Elsevier Patient Education ?? 2020 [employer] Emergency Awareness and Preventative Care [...] Assistance with quitting is available by contacting 4-571-FKMNNOW. This is a free resource providing counseling, support, and referral. Or you may contact your personal physician. [employer] Suicide Prevention Lifeline: The National Suicide Prevention [...] was given the opportunity to ask questions. Patient/Form Coverer Name: Patient/Form Coverer Signature: Relationship to Patient: Clinician/Hospital Form Coverer Signature: Please Provide a Telephone Number Where You Can Be Reached: Is it Permissible To Leave a Message? Date: documented in this encounter Plan of Treatment Not on file documented as of this encounter Visit Diagnoses Not on filedocumented in this encounter
--- OUTSIDE RECORDS SUMMARY | 2025-05-21 08:56 | XMS_ITS | Clinical Summary ---
Author Organization [facility] Address [address] [place] [id number] Care Team Providers Care Carpenter Rough Name Role Phone Krysten Burt MD Primary Care Provider [phone] Allergies No known active allergies Medications pseudoephedrine [...] 05/28/2021 Anxiety 05/28/2021 Positive depression screening 05/28/2021 Resolved Problems Problem Noted Date Diagnosed Date Resolved Date Encounter for supervision of normal , antepartum 08/10/2024 04/28/2025 Sore throat 03/26/2022 04/28/2025 Cough 03/26/2022 04/28/2025 Sinus pressure 03/26/2022 04/28/2025 PROM (premature rupture of membranes) 10/23/2021 10/25/2021 Dichorionic diamniotic twin in third trimester 10/02/2021 10/25/2021 Overview (10/02/2021): Added automatically from request for surgery [id number] Immunizations Immunization Administration Dates Next Due Tdap [...] in a correction (including now)? No 03/27/2024 Partlow Depression Scale Answer Date Recorded Partlow Depression Scale Total 8 12/07/2021 The thought of harming myself has occurred to me . Never 12/07/2021 Utilities Answer Date Recorded In the past 12 months has th e electric, gas, oil, or water company threatened to shut off services in your home? No 03/27/2024 PHQ-2A Answer Date Recorded Depression Risk 5 06/14/2024 PHQ-9A Answer Date Recorded Depression Risk Score 16 06/14/2024 Comments Unknown Sex and Gender Information Value [...] 12/01/2023 11/30/2022, 11/30/2022, 07/15/2022, Additional history exists [id number] Vaccine (1 - season) 2025 [facility]-Influenza Vaccine (#1) 2025 05/09/2013, [facility]-Depression Screening 06/14/2025 024, 06/14/2024, 12/07/2021, Additional history exists [facility]-Pap Smear 11/30/2025 11/30/2022 [facility]-DTaP,Tdap,and Td Vaccines (8 - Td or Tdap) 08/20/2031 08/20/2021, 04/04/2013, 12/05/2006, Additional history exists [facility]-Zoster Vaccines (1 of 2) 2051 08/13/2008, 06/21/2002 [facility]-Hepatitis B Vaccines Completed 002, 2001, 2001 [...] Detected Not Detected 12/02/2022 9:37 AM EDT [facility] Swab Endocervical structure / Unknown Non-blood Collection / Unknown 11/30/2022 3:09 PM EDT 11/30/2022 4:07 PM EDT Narrative [facility] - 12/02/2022 9:37 AM EDT This test is performed by the Rewardable m2000 instrument for Real Time PCR C. [...] to perform high complexity clinical laboratory testing. Rhea Ramos MD LAB MICROBIOLOGY - GENERAL ORDERABLES Final Result [facility] [address] [place] [address] * Pap Test (11/30/2022 3:09 PM EDT) Case Report Cytology Case: [id number] Authorizing Provider: Rhea Ramos MD Collected: 11/30/2022 1509 Ordering Location: Medical Office Building Received: 11/30/2022 1611 Obstetrics and Gynecology First Screen: Shayy Gordon Specimen: ThinPrep Pap Test, Liquid-Based Cervical/Vaginal, CERVICAL/VAGINAL 12/06/2022 3:06 PM EDT [facility] Interpretation NEGATIVE FOR INTRAEPITHELIAL LESION OR MALIGNANCY 12/06/2022 3:06 PM EDT [facility] at 1506 EDT Specimen Adequacy Satisfactory for evaluation; endocervical/villanueva sformation zone component present. Slide imaged by the ThinPrep Imaging system and selected 22 corado reviewed then full manual screening. 12/06/2022 3:06 PM EDT [facility] Cervical cytology is a screening [...] results is suggested (please call Microbiology at [phone] for results). 12/06/2022 3:06 PM EDT [facility] Menstrual Status Cyclic 12/07/19 3:06 PM EDT [facility] Contraceptive History Not Applicable 12/06/2022 3:06 PM EDT [facility] Screening Type Routine Screen 2022 3:06 PM EDT [facility] High Risk? No 12/06/2022 3:06 PM EDT [facility] HPV Testing Requested? No HPV Testing Requested 12/06/2022 3:06 PM EDT [facility] Previous Cancer History No 12/06/2022 3:06 PM EDT [facility] Clinical Information R10.2 - Pelvic and perineal pain [ICD-10-CM] 12/06/2022 3:06 PM EDT [facility] Last Menstrual Period 10/25/2022 12/06/2022 3:06 PM EDT [facility] Swab Vaginal and cervical cytologic material / Unknown Non-blood Collection / Unknown 11/30/2022 3:09 PM EDT 11/30/2022 4:15 PM EDT us Rhea Ramos MD LAB CYTOLOGY ORDERABLES Fi nal Result [facility] [address] [place] [address] * HIV 1 & 2 Antibody/Antigen Screen (04/30/2021 8:23 PM EDT) HIV 1 & 2 Antibody/Anti gen Screen Nonreactive Nonreactive 04/30/2021 8:23 PM EDT [facility] Blood Venous blood specimen / Unknown 04/30/2021 3:09 PM EDT Rhea Ramos MD LAB BLOOD ORDERABLES Final Result Performing Organization Address [facility] Co de Phone Number [facility] [address] [place] [address] * Hepatitis C Antibody (04/30/2021 8:21 PM EDT) Hepatitis C Antibody Negative Negative 04/30/2021 8:21 PM EDT [facility] Blood Venous blood specimen / Unknown 04/30/2021 3:09 PM EDT Rhea Ramos MD LAB BLOOD ORDERABLES Final Result Performing Organization Address [facility] de Phone Number [facility] [address] [place] [address] from Last 3 Months or Most Recently Relevant to Health Maintenance Insurance MEDICAID Advance Directives * Full Code (Latest Code Status on File) Date Activated Date Inactivated Comments 10/23/2021 12:34 PM 10/26/2021 4:44 PM Question Answer Comments Patient has decision-making capacity? Yes Care Teams Carpenter Rough Relationship Specialty Start Date End Date Krysten Burt MD [address] [facility] [address] [place] [address] PCP - General Adolescent Medicine 12/29/22
--- OUTSIDE RECORDS SUMMARY | 2025-05-21 08:56 | XMS_ITS | Encounter Summary ---
Author Organization [employer] ([place], [place], [place], [place]) Address [address] [place] [address] Care Team Providers Care E M Assembler Name Role Phone Unavailable Primary Care Provider Unavailabl e Encounter Details Date Type Department Care Team (Late st Contact Info) Description 04/10/2021 Transcribed Document [facility] [place] [address] [place] [address] ProviderJuan Carlos MD [address] [place], [place] [id number] Social History Tobacco Use Types Packs/Day Years [...]
--- OUTSIDE RECORDS SUMMARY | 2025-05-21 08:56 | XMS_ITS | Clinical Summary ---
Author Organization [employer] ([place], [place], [place], [place]) Address [address] [place] [address] Care Team Providers Care Concrete Gun Operator Name Role Phone Unavailable Primary Care [...]
--- OUTSIDE RECORDS SUMMARY | 2025-05-21 08:56 | XMS_ITS | Encounter Summary ---
Author Organization [employer] ([place], [place], [place], [place]) Address [address] [place] [address] Care Team Providers Care Technician Telecommunication Systems Name Role Phone Unavailable Primary Care Provider Unavailabl e Encounter Details Date Type Department Care Team (Late st Contact Info) Description 04/10/2021 Transcribed Document [facility] Radiology [address] [place] [address] Herbie Méndez MD [address] [place] [address] Dept. [place] [address] Social History Tobacco Use Types [...] 1-Time . Notes: spoke to multiple Ob therapeutic recreation assistant, with recomendations, patient remains stable, US update [...] a clinic referral service , just dial: [phone] (WELL) Our experts will provide you with [...]
--- OUTSIDE RECORDS SUMMARY | 2025-05-21 08:56 | XMS_ITS | Encounter Summary ---
Author Organization [employer] ([place], [place], [place], [place]) Address [address] [place] [address] Care Team Providers Care Issue Clerk Name Role Phone Unavailable Primary Care Provider Unavailabl e Encounter Details Date Type Department Care Team (Late st Contact Info) Description 04/10/2021 Transcribed Document [facility] Family Medicine [facility] [place] [address] ProviderJuan Carlos MD [facility] [place] [address] Social History Tobacco Use Types [...] EDT DCP GENERIC CODE Tracking Group : [facility] Tracking Acuity : 3 - [...] caused by 2019 novel coronavirus (SNOMED CT :[id number] ) Name of Problem: Disease caused by 2019 novel coronavirus ; Recorder: SYSTEM, SYSTEM; Confirmation: Confirmed ; Classification: Medical ; Code: [id number] ; Last Updated: 04/07/2021 22:55 EDT ; Life Cycle Date: 04/07/2021 ; Life Cycle Status: Active ; Vocabulary: SNOMED CT ; Comments: 04/07/2021 22:55 - SYSTEM, SYSTEM Problem added by a rule: [id number]. Diagnoses(Active) Medication administration Date: 04/10/2021 ; Diagnosis Type: Reason For Visit ; Confirmation: Complaint of ; Clinical Dx: Medication administration ; Classification: Medical ; Clinical Service: Emergency medicine ; Code: PNED ; Probability: 0 ; Diagnosis Code: [id number] ED Height and Weight Height Source : Measured Height Entry Format : [place] Height, Feet : 5 ft(Converted to: 152 cm, 60 Inch) Height, Inches : 7 Inch(Converted to: 0 ft 7 Inch, 17.78 cm) Clinical Height : 170.18 cm Weight Source, ED : Standing scale Weight Entry Format : [place] Weight, Pounds : 128 lb Clinical Dosing Weight : 58.18 kg Body Surface Area (BSA) : 1.67 m2 Body Mass Index : 20.1 kg/m2 Elmer Body Weight (IBW) : 61.16 kg KIYA [...]
--- OUTSIDE RECORDS SUMMARY | 2025-05-21 08:56 | XMS_ITS | Encounter Summary ---
Author Organization [employer] ([place], [place], [place], [place]) Address [address] [place] [address] Care Team Providers Care Structural Steel Erector Name Role Phone Unavailable Primary Care Provider Unavailabl e Encounter Details Date Type Department Care Team (Late st Contact Info) Description 04/11/2021 Transcribed Document [facility] [place] [facility] [place] [address] ProviderJuan Carlos MD [facility] [place] [address] Social History Tobacco Use Types [...] Patient reports brownish-red vaginal spotting that is card scraper than her menstrual period. This began yesterday and has continued today. She denies any abdominal pain or pelvic cramping. Also denies fever, nausea/vomiting, vaginal discharge. Patient tested positive for COVID-19 4 days ago and yesterday received the monoclonal antibody infusion. She currently follows with an SEPTIC TANK CLEANER at [facility], however is in the process of [...] April 11, 2021 14:10 EDT Encounter info: [id number], BEREKET Diaz [facility], Emergency Room, 04/11/2021 - 04/11/2021 [...] discussed strict pelvic rest and follow-up with SEPTIC TANK CLEANER. Patient voices understanding and agreement with plan. [...] pelvic rest as discussed. Follow-up with your SEPTIC TANK CLEANER in 2 days for repeat assessment., Follow up with primary care provider Within 2 to 3 days Call for follow up appointment. Return to the ER for any new or worsening symptoms as discussed, especially fever, persistent pelvic pain, vaginal bleeding greater than 2 pads/hour. Recommend pelvic rest as discussed. Follow-up with your SEPTIC TANK CLEANER in 2 days for repeat assessment., Follow up with primary care provider Within 2 to 3 days Call for follow up appointment. Return to the ER for any new or worsening symptoms as discussed, especially fever, persistent pelvic pain, vaginal bleeding greater than 2 pads/hour. Recommend pelvic rest as discussed. Follow-up with your SEPTIC TANK CLEANER in 2 days for repeat assessment.. Counseled: Patient, Regarding diagnosis, Regarding diagnostic results, Regarding treatment plan, Patient indicated understanding of instructions. documented in this encounter Plan of Treatment Not on file documented as of this encounter Visit Diagnoses Not on filedocumented in this encounter
--- OUTSIDE RECORDS SUMMARY | 2025-05-21 08:56 | XMS_ITS | Encounter Summary ---
Author Organization [employer] ([place], [place], [place], [place]) Address [address] [place] [address] Care Team Providers Care Groundman/Lineman Name Role Phone Unavailable Primary Care Provider Unavailabl e Encounter Details Date Type Department Care Team (Late st Contact Info) Description 04/08/2021 Transcribed Document [facility] [place] [facility] [address] ProviderJuan Carlos MD [facility] [place], [place] [id number] Social History Tobacco Use Types Packs/Day Years [...] 0:17 EDT Electronically signed by Chana [facility] Conversion Analytical Data Miner Cerner at 11/21/2022 11:44 PM CDT documented in this encounter Plan of Treatment Not on file documented as of this encounter Visit Diagnoses Not on filedocumented in this encounter
--- OUTSIDE RECORDS SUMMARY | 2025-05-21 08:56 | XMS_ITS | Encounter Summary ---
Author Organization [employer] ([place], [place], [place], [place]) Address [address] [place] [address] Care Team Providers Care Slate Roofer Name Role Phone Unavailable Primary Care Provider Unavailabl e Encounter Details Date Type Department Care Team (Late st Contact Info) Description 04/07/2021 Transcribed Document [facility] [place] [facility] [place] [address] ProviderJuan Carlos MD [address] [place] [address] Social History Tobacco Use Types [...] 11:58 PM CDT Electronically signed by Chana [facility] Conversion Transition Social Worker Martinener at 11/21/2022 11:36 PM CDT documented in this encounter Plan of Treatment Not on file documented as of this encounter Visit Diagnoses Not on filedocumented in this encounter
--- OUTSIDE RECORDS SUMMARY | 2025-05-21 08:56 | XMS_ITS | Encounter Summary ---
Author Organization [employer] ([place], [place], [place], [place]) Address [address] [place] [address] Care Team Providers Care Traffic Representative Name Role Phone Unavailable Primary Care Provider Unavailabl e Encounter Details Date Type Department Care Team (Late st Contact Info) Description 04/11/2021 Transcribed Document [facility] [place] [address] [place] [address] ProviderJuan Carlos MD [address], [place] [id number] Social History Tobacco Use Types Packs/Day Years [...]
--- OUTSIDE RECORDS SUMMARY | 2025-05-21 08:56 | XMS_ITS | Encounter Summary ---
Author Organization [employer] ([place], [place], [place], [place]) Address [address] [place] [address] Care Team Providers Care Customer Engagement Analyst Name Role Phone Unavailable Primary Care Provider Unavailabl e Encounter Details Date Type Department Care Team (Late st Contact Info) Description 04/10/2021 Transcribed Document [facility] [place] [facility] [place] [address] ProviderJuan Carlos MD [address] [place], [place] [id number] Social History Tobacco Use Types Packs/Day Years [...] Historical ProviderMD - 04/10/2021 5:27 AM CDT [place] Suicide Severity Rating Scale (C-SSRS) Entered On: 04/10/2021 6:47 EDT Performed On: 04/10/2021 6:46 EDT by Nasreen Aldridge RN-PATIENT CARE BEDSIDE NON-EXEMPT [place] Suicide Severity Rating Scale (C-SSRS) CSSRS Past [...]
--- OUTSIDE RECORDS SUMMARY | 2025-05-21 08:56 | XMS_ITS | Encounter Summary ---
Author Organization [employer] ([place], [place], [place], [place]) Address [address] [place] [address] Care Team Providers Care Inspector Production Plastic Parts Name Role Phone Unavailable Primary Care Provider Unavailabl e Encounter Details Date Type Department Care Team (Late st Contact Info) Description 04/11/2021 Transcribed Document [facility] [place] [facility] [place] [address] ProviderJuan Carlos MD [facility] [place] [id number] Social History Tobacco Use Types Packs/Day Years [...] Communication Barrier : None Primary Language : Georgian Any Spiritual/Cultural Needs or Requests : No [...]
--- OUTSIDE RECORDS SUMMARY | 2025-05-21 08:56 | XMS_ITS | Encounter Summary ---
Author Organization [employer] ([place], [place], [place], [place]) Address [address] [place] [address] Care Team Providers Care Public Relations Studies Director Name Role Phone Unavailable Primary Care Provider Unavailabl e Encounter Details Date Type Department Care Team (Late st Contact Info) Description 04/08/2021 Transcribed Document [facility] [place] [facility] [place] [address] ProviderJuan Carlos MD [address] [place] [address] Social History Tobacco Use Types [...] Reviewed by Provider, No further action required Electronically signed by Brian Zayas Conversion Sexual Assault Response Coordinator Cerner at 11/21/2022 11:36 PM CDT documented in this encounter Plan of Treatment Not on file documented as of this encounter Visit Diagnoses Not on filedocumented in this encounter
--- OUTSIDE RECORDS SUMMARY | 2025-05-21 08:56 | XMS_ITS | Referral Summary ---
Author Organization [employer] ([place], [place], [place], [place]) Address [address] [place] [address] Care Team Providers Care Refractory Furnace Designer Name Role Phone Unavailable Primary Care [...]
--- OUTSIDE RECORDS SUMMARY | 2025-05-21 08:56 | XMS_ITS | Encounter Summary ---
Author Organization [employer] ([place], [place], [place], [place]) Address [address] [place] [address] Care Team Providers Care Psychologist Name Role Phone Unavailable Primary Care Provider Unavailabl e Encounter Details Date Type Department Care Team (Late st Contact Info) Description 04/11/2021 Transcribed Document [facility] [place] [address] [place] [address] ProviderJuan Carlos MD [address], [place] [address] Social History Tobacco Use Types Packs/Day Years [...] Historical ProviderMD - 04/11/2021 9:48 AM CDT [place] Suicide Severity Rating Scale (C-SSRS) Entered On: 04/11/2021 12:05 EDT Performed On: 04/11/2021 12:04 EDT by Lacey Chau RN [place] Suicide Severity Rating Scale (C-SSRS) CSSRS Past [...]
--- OUTSIDE RECORDS SUMMARY | 2025-05-21 08:56 | XMS_ITS | Encounter Summary ---
Author Organization [employer] ([place], [place], [place], [place]) Address [address] [place] [address] Care Team Providers Care Electrical Engineer Name Role Phone Unavailable Primary Care Provider Unavailabl e Encounter Details Date Type Department Care Team (Late st Contact Info) Description 04/11/2021 Transcribed Document [facility] [place] [facility] [place] [address] ProviderJuan Carlos MD [facility] [place] [address] Social History Tobacco Use Types [...] : 3 - Urgent Tracking Group : [facility] ED [facility] Harleen Brown RN - 04/11/2021 10:10 [...] caused by 2019 novel coronavirus (SNOMED CT :[id number] ) Name of Problem: Disease caused by 2019 novel coronavirus ; Recorder: SYSTEM, SYSTEM; Confirmation: Confirmed ; Classification: Medical ; Code: [id number] ; Last Updated: 04/07/2021 22:55 EDT ; Life Cycle Date: 04/07/2021 ; Life Cycle Status: Active ; Vocabulary: SNOMED CT ; Comments: 04/07/2021 22:55 - SYSTEM, SYSTEM Problem added by a rule: [id number]. Diagnoses(Active) Vaginal bleeding Date: 04/11/2021 ; Diagnosis Type: Reason For Visit ; Confirmation: Complaint of ; Clinical Dx: Vaginal bleeding ; Classification: Medical ; Clinical Service: Non-Specified ; Code: PNED ; Probability: 0 ; Diagnosis Code: [id number] ED Height and Weight Height Source : Measured Height Entry Format : [place] Height, Feet : 5 ft(Converted to: 152 cm, 60 Inch) Height, Inches : 7 Inch(Converted to: 0 ft 7 Inch, 17.78 cm) Clinical Height : 170.18 cm Weight Source, ED : Standing scale Weight Entry Format : [place] Weight, Pounds : 128 lb Clinical Dosing Weight : 58.18 kg Body Surface Area (BSA) : 1.67 m2 Body Mass Index : 20.1 kg/m2 [place] Body Weight (IBW) : 61.16 kg Harleen Brown RN - 04/11/2021 10:10 EDT Electronically signed by Brian Zayas Conversion Earth Science Laboratory Technician Cerner at 11/21/2022 11:41 PM CDT documented in this encounter Plan of Treatment Not on file documented as of this encounter Visit Diagnoses Not on filedocumented in this encounter
--- OUTSIDE RECORDS SUMMARY | 2025-05-21 08:56 | XMS_ITS | Encounter Summary ---
Author Organization [employer] ([place], [place], [place], [place]) Address [address] [place] [address] Care Team Providers Care Knot Bumper Name Role Phone Unavailable Primary Care Provider Unavailabl e Encounter Details Date Type Department Care Team (Late st Contact Info) Description 04/11/2021 Transcribed Document [facility] [place] [facility] [place] [facility] [place] [address] ProviderJuan Carlos MD [facility] [place] [address] Social History Tobacco Use [...] 04/11/2021 14:35 EDT Electronically signed by Chana [facility] Conversion Medical Records Supervisor Cerner at 11/21/2022 11:36 PM CDT documented in this encounter Plan of Treatment Not on file documented as of this encounter Visit Diagnoses Not on filedocumented in this encounter
--- OUTSIDE RECORDS SUMMARY | 2025-05-21 08:56 | XMS_ITS | Clinical Summary ---
Author Organization [facility] Address [address] [place] [address] Care Team Providers Care Housing Property Manager Name Role Phone Provider, No Known [...] hematoma. 10/30/2024 Previous delivery affecting 0 10/30/2024 Social History Tobacco Use Types Packs/Day Years Used Date Smoking Tobacco: Never Smokeless Tobacco: Never Tobacco Cessation:Counseling Given: Not Answered Alcohol Use Standard Drinks/Week Comments Not Currently 0 (1 standard drink = 0.6 oz pur e alcohol) Comments No Sex and Gender Information Value Date Recorded [...] exists HEPATITIS C SCREENING Completed 04/30/2021, [address] [place] [address] Care Teams Housing Property Manager Relationship Specialty Start Date End Date Provider, [place] [address] PCP - General 10/26/24
--- OUTSIDE RECORDS SUMMARY | 2025-05-21 08:56 | XMS_ITS | Encounter Summary ---
Author Organization [employer] ([place], [place], [place], [place]) Address [address] [place] [address] Care Team Providers Care Cryogenic Transport Driver Name Role Phone Unavailable Primary Care Provider Unavailabl e Encounter Details Date Type Department Care Team (Late st Contact Info) Description 04/10/2021 Transcribed Document [facility] [place] [facility] [place] [address] ProviderJuan Carlos MD [facility] [place] [address] Social History Tobacco Use [...]
--- OUTSIDE RECORDS SUMMARY | 2025-05-21 08:56 | XMS_ITS | Encounter Summary ---
Author Organization [employer] ([place], [place], [place], [place]) Address [address] [place] [address] Care Team Providers Care High School Learning Support Teacher Name Role Phone Unavailable Primary Care Provider Unavailabl e Encounter Details Date Type Department Care Team (Late st Contact Info) Description 04/11/2021 Transcribed Document [facility] [place] [facility] [place] [address] ProviderJuan Carlos MD [address] [place] [address] Social History Tobacco Use Types [...] Carlos ProviderMD - 04/11/2021 2:23 PM CDT [place] [id number] LIBERTAD WEBBNE :2000 Visit Time:04/11/2021 Your Visit [...] pelvic rest as discussed. Follow-up with your DIRECTOR FEDERAL in 2 days for repeat assessment. Allergies [...] provider. Document Revised: 08/31/2018 Document Reviewed: 10/21/2017 [employer] Patient Education ?? 2020 [employer] Vaginal Bleeding During , First Trimester [...] this is safe. General instructions ??? Take eehc-wap-ckidfsv and prescription medicines only as told by [...] provider. Document Revised: 11/13/2019 Document Reviewed: 10/27/2017 [employer] Patient Education ?? 2020 [employer] Subchorionic Hematoma A subchorionic hematoma is [...] Reviewed: 09/20/2017 Elsevier Patient Education ?? 2020 [employer] Emergency Awareness and Preventative Care STROKE [...] Assistance with quitting is available by contacting 1-954-MRMINOW. This is a free resource providing counseling, support, and referral. Or you may contact your personal physician. [place] Suicide Prevention Lifeline: The National Suicide Prevention [...] was given the opportunity to ask questions. Patient/Porter Bath Name: Patient/Porter Bath Signature: Relationship to Patient: Clinician/Hospital Porter Bath Signature: Please Provide a Telephone Number Where You Can Be Reached: Is it Permissible To Leave a Message? Date: Electronically signed by hCana, [facility] Conversion Systems Project Manager Cerner at 11/21/2022 11:34 PM CDT documented in this encounter Plan of Treatment Not on file documented as of this encounter Visit Diagnoses Not on filedocumented in this encounter
--- OUTSIDE RECORDS SUMMARY | 2025-05-21 08:56 | XMS_ITS | Encounter Summary ---
Author Organization [employer] ([place], [place], [place], [place]) Address [address] [place] [address] Care Team Providers Care Head Inspector Name Role Phone Unavailable Primary Care Provider Unavailabl e Encounter Details Date Type Department Care Team (Late st Contact Info) Description 04/07/2021 Transcribed Document [facility] [place] Family Medicine [facility] [place] [address] ProviderJuan Carlos MD [address] [place] [address] Social History Tobacco Use Types Packs/Day [...] PNED ; Probability: 0 ; Diagnosis Code: [id number] ED Height and Weight Height Source : Measured Height Entry Format : [place] Height, Feet : 5 ft(Converted to: 152 cm, 60 Inch) Height, Inches : 7 Inch(Converted to: 0 ft 7 Inch, 17.78 cm) Clinical Height : 170.18 cm Weight Source, ED : Standing scale Weight Entry Format : [place] Weight, Pounds : 128 lb Clinical Dosing Weight : 58.18 kg Body Surface Area (BSA) : 1.67 m2 Body Mass Index : 20.1 kg/m2 [place] Body Weight (IBW) : 61.16 kg MARIANA ESTEVES RN - 04/07/2021 21:15 EDT Electronically signed by Brian Zayas Conversion Learning And Development Specialist Cerner at 11/21/2022 11:42 PM CDT documented in this encounter Plan of Treatment Not on file documented as of this encounter Visit Diagnoses Not on filedocumented in this encounter
--- OUTSIDE RECORDS SUMMARY | 2025-05-21 08:56 | XMS_ITS | Encounter Summary ---
Author Organization [employer] ([place], [place], [place], [place]) Address [address] [place] [address] Care Team Providers Care Thermo Processor Name Role Phone Unavailable Primary Care Provider Unavailabl e Encounter Details Date Type Department Care Team (Late st Contact Info) Description 04/11/2021 Transcribed Document [facility] [place] [address] [place] [address] ProviderJuan Carlos MD [address], [place] [id number] Social History Tobacco Use Types Packs/Day Years [...]
--- OUTSIDE RECORDS SUMMARY | 2025-05-21 08:56 | XMS_ITS | Encounter Summary ---
Author Organization [employer] ([place], [place], [place], [place]) Address [address] [place] [address] Care Team Providers Care Journalism Intern Name Role Phone Unavailable Primary Care Provider Unavailabl e Encounter Details Date Type Department Care Team (Late st Contact Info) Description 04/11/2021 Transcribed Document [facility] [place] [facility] [place] [address] ProviderJuan Carlos MD [address] [place] [address] Social History Tobacco Use Types [...] 12:12 PM CDT Electronically signed by Chana [facility] Conversion Line Up Examiner Yu at 11/21/2022 11:35 PM CDT documented in this encounter Plan of Treatment Not on file documented as of this encounter Visit Diagnoses Not on filedocumented in this encounter
--- OUTSIDE RECORDS SUMMARY | 2025-05-21 08:56 | XMS_ITS | Encounter Summary ---
Author Organization [employer] ([place], [place], [place], [place]) Address [address] [place] [address] Care Team Providers Care Lint Cleaner Name Role Phone Unavailable Primary Care Provider Unavailabl e Encounter Details Date Type Department Care Team (Late st Contact Info) Description 04/10/2021 Transcribed Document [facility] [place] [facility] [place] [address] ProviderJuan Carlos MD [address] [place] [address] Social History Tobacco Use Types [...] Cavazos MD - 04/10/2021 8:46 AM CDT [place] [id number] LIBERTAD DE LEONNE :2000 Visit Time:04/10/2021 Your [...] or High Risk [phone] [address]: [address] [place] [id number]- [facility] (1) Follow Up with For a clinic referral service , just dial: [phone] (WELL) Our experts will provide you with [...] water are not available, use alcohol-based hand conservation assistant. ??? Avoid touching your mouth, face, eyes, [...] pump parts after expressing milk. Follow the grease cup filler's instructions to clean and disinfect all pump [...] (CDC): www.cdc.gov/coronavirus/2019-ncov/ ??? World Health Organization (WHO): www.who.int/news-room/q-a-detail/e-u-sc-lpkjy-24-plitjwuwr-tfkakqzsop-oks-vlcn stfeeding ??? [place] [employer] (ACOG): www.acog.org/patient-resources/faqs//yziozhetjyo-ibxxfyfez-tfc-breast feeding Questions to ask your health care [...] provider. Document Revised: 07/25/2020 Document Reviewed: 07/25/2020 [employer] Patient Education ?? 2020 [employer]. 10 Things You Can Do to Manage [...] clean your hands with an alcohol-based hand conservation assistant that contains at least 60% alcohol. 8. [...] Reviewed: 07/10/2020 Elsevier Patient Education ?? 2020 [employer] Emergency Awareness and Preventative Care STROKE [...] Assistance with quitting is available by contacting 1-137-WBAINOW. This is a free resource providing counseling, support, and referral. Or you may contact your personal physician. [employer] Suicide Prevention Lifeline: The National Suicide Prevention [...] was given the opportunity to ask questions. Patient/Biological Technical Officer Name: Patient/Biological Technical Officer Signature: Relationship to Patient: Clinician/Hospital Biological Technical Officer Signature: Please Provide a Telephone Number Where You Can Be Reached: Is it Permissible To Leave a Message? Date: Electronically signed by Chana [facility] Conversion Division Order Technician Yu at 11/21/2022 11:37 PM CDT documented in this encounter Plan of Treatment Not on file documented as of this encounter Visit Diagnoses Not on filedocumented in this encounter
--- OUTSIDE RECORDS SUMMARY | 2025-05-21 08:56 | XMS_ITS | Encounter Summary ---
Author Organization [employer] ([place], [place], [place], [place]) Address [address] [place] [address] Care Team Providers Care Cassandra Developer Name Role Phone Unavailable Primary Care Provider Unavailabl e Encounter Details Date Type Department Care Team (Late st Contact Info) Description 04/11/2021 Transcribed Document [facility] [place] Family Medicine [facility] [place] [address] ProviderJuan Carlos MD [address] [place] [address] Social History Tobacco Use Types [...]
--- OUTSIDE RECORDS SUMMARY | 2025-05-21 08:56 | XMS_ITS | Data Portability ---
Author Organization [facility] Address [address] [place] [address] Assessment No assessment recorded. Plan of Treatment Reminders Order Date Submit Date Provider Last Modified By Organization Details Last Modified Time Details Appointments None recorded. Lab CMP, serum or plasma 2024 025 JOSE [facility] ([place]), [address] [place], [address], 5 15:08:06 urinalysis , complete 2024 025 JOSE [facility] ([place]), [address] [place], [address], 5 15:08:06 HbA1c (hemoglobi n A1c), blood 2024 025 JOSE [facility] ([place]), [address] [place], [address], 5 15:08:08 cobalamin and folate panel, serum 2024 025 JOSE [facility] ([place]), [address] [place], [address], 5 15:08:07 iron + TIBC + ferritin, serum 2024 025 JOSE [facility] ([place]), [address] [place], [address], 5 15:08:03 CBC w/ auto diff 2024 025 JOSE [facility] ([place]), [address] [place], [address], 15:08:05 TSH + free T4, serum 2024 025 JOSE [facility] ([place]), [address] [place], [address], 15:08:04 Referral None recorded. Procedures None recorded. Surgeries None recorded. Imaging None recorded. Medication Orders None recorded. Patient TargetsNo targets recorded. Patient InstructionsNo instructions recorded. Reason for Referral None Reported. Results Created Date Observation Date Name Description Value Unit Range Abnormal Flag Note LastModifiedBy Organization Detail LastModifiedTime 05/06/2005/07/2025 FE+TI BC+FE R iron bind.cap.(TI BC) 405 ug/dL 250-45 0 normal Not Available [facility] ([facility]) [address] [place], [address], 05/07/2025 15:08:03 05/06/20 25 05/07/2025 FE+TI BC+FE R UIBC 377 ug/dL 131-42 5 normal Not Available [facility] ([facility]) [address] [place], [address], 05/07/2025 15:08:03 05/06/20 25 05/07/2025 FE+TI BC+FE R iron 28 ug/dL 27-159 normal Not Available [facility] ([facility]) [address] [place], [address], 05/07/2025 15:08:03 05/06/2005/07/2025 FE+TI BC+FE R iron saturation 7 % 15-55 alert low Not Available [facility] ([facility]) [address] [place], [address], 05/07/2025 15:08:03 05/06/20 25 05/07/2025 FE+TI BC+FE R ferritin 10 NG/mL 15-150 below low normal Not Available [facility] ([facility]) [address] [place], [address], 05/07/2025 15:08:03 05/06/20 25 05/07/2025 TSH+F REE T4 TSH 1.300 uIU/m L 0.450- 4.500 normal Not Available [facility] ([facility]) [address] [place], [address], 05/07/2025 15:08:04 05/06/20 25 05/07/2025 TSH+F REE T4 T4,free(dire ct) 0.99 NG/dL 0.82-1 .77 normal Not Available [facility] ([facility]) [address] [place], [address], 05/07/2025 15:08:04 05/06/20 25 05/07/2025 CBC WITH DIFFE RENTI AL/PL ATELE T WBC 8.0 x10e3 /uL 3.4-10 .8 normal Not Available [facility] ([facility]) [address] [place], [address], 05/07/2025 15:08:05 05/06/20 25 05/07/2025 CBC WITH DIFFE RENTI AL/PL ATELE T RBC 4.87 x10e6 /uL 3.77-5 .28 normal Not Available [facility] ([facility]) [address] [place], [address], 05/07/2025 15:08:05 05/06/20 25 05/07/2025 CBC WITH DIFFE RENTI AL/PL ATELE T hemoglobin 12.4 g/dL 11.1-1 5.9 normal Not Available [facility] ([facility]) [address] [place], [address], 05/07/2025 15:08:05 05/06/20 25 05/07/2025 CBC WITH DIFFE RENTI AL/PL ATELE T hematocrit 40.2 % 34.0-4 6.6 normal Not Available [facility] ([facility]) [address] [place], [address], 05/07/2025 15:08:05 05/06/20 25 05/07/2025 CBC WITH DIFFE RENTI AL/PL ATELE T MCV 83 fL 79-97 normal Not Available [facility] ([facility]) [address] [place], [address], 05/07/2025 15:08:05 05/06/20 25 05/07/2025 CBC WITH DIFFE RENTI AL/PL ATELE T MCH 25.5 pg 26.6-3 3.0 below low normal Not Available [facility] ([facility]) [address] [place], [address], 05/07/2025 15:08:05 05/06/20 25 05/07/2025 CBC WITH DIFFE RENTI AL/PL ATELE T MCHC 30.8 g/dL 31.5-3 5.7 below low normal Not Available [facility] ([facility]) [address] [place], [address], 05/07/2025 15:08:05 05/06/20 25 05/07/2025 CBC WITH DIFFE RENTI AL/PL ATELE T RDW 13.7 % 11.7-1 5.4 Not Available [facility] ([facility]) [address] [place], [address], 05/07/2025 15:08:05 05/06/20 25 05/07/2025 CBC WITH DIFFE RENTI AL/PL ATELE T platelets 283 x10e3 /uL 150-45 0 normal Not Available [facility] ([facility]) [address] [place], [address], 05/07/2025 15:08:05 05/06/20 25 05/07/2025 CBC WITH DIFFE RENTI AL/PL ATELE T neutrophils 59 % not estab. normal Not Available [facility] ([facility]) [address] [facility], [place], [address], 05/07/2025 15:08:05 05/06/20 25 05/07/2025 CBC WITH DIFFE RENTI AL/PL ATELE T lymphs 30 % not estab. normal Not Available [facility] ([facility]) [address] [facility], [place], [address], 05/07/2025 15:08:05 05/06/20 25 05/07/2025 CBC WITH DIFFE RENTI AL/PL ATELE T monocytes 9 % not estab. normal Not Available [facility] ([facility]) [address] [facility], [place], [address], 05/07/2025 15:08:05 05/06/20 25 05/07/2025 CBC WITH DIFFE RENTI AL/PL ATELE T eos 1 % not estab. normal Not Available [facility] ([facility]) [address] [facility], [place], [address], 05/07/2025 15:08:05 05/06/20 25 05/07/2025 CBC WITH DIFFE RENTI AL/PL ATELE T basos 1 % not estab. normal Not Available [facility] ([facility]) [address] [facility], [place], [address], 05/07/2025 15:08:05 05/06/20 25 05/07/2025 CBC WITH DIFFE RENTI AL/PL ATELE T immature cells [employer] Not Available [facility] ([facility]) [address] [facility], [place], [address], 05/07/2025 15:08:05 05/06/20 25 05/07/2025 CBC WITH DIFFE RENTI AL/PL ATELE T neutrophils (absolute) 4.7 x10e3 /uL 1.4-7. 0 normal Not Available [facility] ([facility]) [address] [facility], [place], [address], 05/07/2025 15:08:05 05/06/20 25 05/07/2025 CBC WITH DIFFE RENTI AL/PL ATELE T lymphs (absolute) 2.4 x10e3 /uL 0.7-3. 1 normal Not Available [facility] ([facility]) [address] [facility], [place], [address], 05/07/2025 15:08:05 05/06/20 25 05/07/2025 CBC WITH DIFFE RENTI AL/PL ATELE T monocytes(ab solute) 0.7 x10e3 /uL 0.1-0. 9 normal Not Available [facility] ([facility]) [address] [facility], [place], [address], 05/07/2025 15:08:05 05/06/20 25 05/07/2025 CBC WITH DIFFE RENTI AL/PL ATELE T eos (absolute) 0.1 x10e3 /uL 0.0-0. 4 normal Not Available [facility] ([facility]) [address] [facility], [place], [address], 05/07/2025 15:08:05 05/06/20 25 05/07/2025 CBC WITH DIFFE RENTI AL/PL ATELE T baso (absolute) 0.1 x10e3 /uL 0.0-0. 2 normal Not Available [facility] ([facility]) [address] [facility], [place], [address], 05/07/2025 15:08:05 05/06/20 25 05/07/2025 CBC WITH DIFFE RENTI AL/PL ATELE T immature granulocytes 0 % not estab. Not Available [facility] ([facility]) [address] [facility], [place], [address], 05/07/2025 15:08:05 05/06/20 25 05/07/2025 CBC WITH DIFFE RENTI AL/PL ATELE T immature grans (abs) 0.0 x10e3 /uL 0.0-0. 1 Not Available [facility] ([facility]) [address] [facility], [place], [address], 05/07/2025 15:08:05 05/06/20 25 05/07/2025 CBC WITH DIFFE RENTI AL/PL ATELE T NRBC [employer] Not Available [facility] ([facility]) [address] [facility], [place], [address], 05/07/2025 15:08:05 05/06/20 25 05/07/2025 CBC WITH DIFFE RENTI AL/PL ATELE T hematology comments: [employer] MA[employer]GER Not Available [facility] ([facility]) [address] [facility], [place], [address], 05/07/2025 15:08:05 05/06/20 25 05/07/2025 COMP. METAB OLIC PANEL (14) glucose 79 mg/dL 70-99 normal Not Available [facility] ([facility]) [address] [place], [address], 05/07/2025 15:08:06 05/06/20 25 05/07/2025 COMP. METAB OLIC PANEL (14) BUN 16 mg/dL 6-20 normal Not Available [facility] ([facility]) [address] [place], [address], 05/07/2025 15:08:06 05/06/20 25 05/07/2025 COMP. METAB OLIC PANEL (14) creatinine 1.01 mg/dL 0.57-1 .00 above high normal Not Available [facility] ([facility]) [address] [place], [address], 05/07/2025 15:08:06 05/06/20 25 05/07/2025 COMP. METAB OLIC PANEL (14) eGFR 80 mL/mi n/1.7 3 >59 normal Not Available [facility] ([facility]) [address] [place], [address], 05/07/2025 15:08:06 05/06/20 25 05/07/2025 COMP. METAB OLIC PANEL (14) BUN/creatini ne ratio 16 9-23 normal Not Available [facility] ([facility]) [address] [place], [address], 05/07/2025 15:08:06 05/06/20 25 05/07/2025 COMP. METAB OLIC PANEL (14) sodium 141 mmol/ L 134-14 4 normal Not Available [facility] ([facility]) [address] [place], [address], 05/07/2025 15:08:06 05/06/20 25 05/07/2025 COMP. METAB OLIC PANEL (14) potassium 4.0 mmol/ L 3.5-5. 2 normal Not Available [facility] ([facility]) [address] [place], [address], 05/07/2025 15:08:06 05/06/20 25 05/07/2025 COMP. METAB OLIC PANEL (14) chloride 103 mmol/ L 96-106 normal Not Available [facility] ([facility]) [address] [place], [address], 05/07/2025 15:08:06 05/06/20 25 05/07/2025 COMP. METAB OLIC PANEL (14) carbon dioxide, total 23 mmol/ L 20-29 normal Not Available [facility] ([facility]) [address] [place], [address], 05/07/2025 15:08:06 05/06/20 25 05/07/2025 COMP. METAB OLIC PANEL (14) calcium 9.7 mg/dL 8.7-10 .2 normal Not Available [facility] ([facility]) [address] [place], [address], 05/07/2025 15:08:06 05/06/20 25 05/07/2025 COMP. METAB OLIC PANEL (14) protein, total 7.1 g/dL 6.0-8. 5 normal Not Available [facility] ([facility]) [address], [place], [address], 05/07/2025 15:08:06 05/06/20 25 05/07/2025 COMP. METAB OLIC PANEL (14) albumin 4.8 g/dL 4.0-5. 0 normal Not Available [facility] ([facility]) [address], [place], [address], 05/07/2025 15:08:06 05/06/20 25 05/07/2025 COMP. METAB OLIC PANEL (14) globulin, total 2.3 g/dL 1.5-4. 5 Not Available [facility] ([facility]) [address] [facility], [place], [address], 05/07/2025 15:08:06 05/06/20 25 05/07/2025 COMP. METAB OLIC PANEL (14) bilirubin, total <0.2 mg/dL 0.0-1. 2 Not Available [facility] ([facility]) [address] [facility], [place], [address], 05/07/2025 15:08:06 05/06/20 25 05/07/2025 COMP. METAB OLIC PANEL (14) alkaline phosphatase 92 IU/L 41-116 normal Not Available [facility] ([facility]) [address] [facility], [place], [address], 05/07/2025 15:08:06 05/06/20 25 05/07/2025 COMP. METAB OLIC PANEL (14) AST (SGOT) 23 IU/L 0-40 normal Not Available [facility] ([facility]) [address] [facility] [place], [address], 05/07/2025 15:08:06 05/06/20 25 05/07/2025 COMP. METAB OLIC PANEL (14) ALT (SGPT) 25 IU/L 0-32 normal Not Available [facility] ([facility]) [address] [facility], [place], [address], 05/07/2025 15:08:06 05/06/20 25 05/07/2025 URINA LYSIS , COMPL ETE specific gravity 1.019 1.005- 1.030 normal Not Available [facility] ([facility]) [address] [facility], [place], [address], 05/07/2025 15:08:06 05/06/20 25 05/07/2025 URINA LYSIS , COMPL ETE pH 7.0 5.0-7. 5 normal Not Available [facility] ([facility]) [address] [facility], [place], [address], 05/07/2025 15:08:06 05/06/20 25 05/07/2025 URINA LYSIS , COMPL ETE urine-color Yellow yellow Not Available [facility] ([facility]) [address] [facility], [place], [address], 05/07/2025 15:08:06 05/06/20 25 05/07/2025 URINA LYSIS , COMPL ETE appearance Clear clear Not Available [facility] ([facility]) [address] [facility], [place], [address], 05/07/2025 15:08:06 05/06/20 25 05/07/2025 URINA LYSIS , COMPL ETE WBC esterase Negati ve negati ve Not Available [facility] ([facility]) [address] [facility], [place], [address], 05/07/2025 15:08:06 05/06/20 25 05/07/2025 URINA LYSIS , COMPL ETE protein Negati ve negati ve/tra ce Not Available [facility] ([facility]) [address] [place], [address], 05/07/2025 15:08:06 05/06/20 25 05/07/2025 URINA LYSIS , COMPL ETE glucose Negati ve negati ve Not Available [facility] ([facility]) [address] [place], [address], 05/07/2025 15:08:06 05/06/20 25 05/07/2025 URINA LYSIS , COMPL ETE ketones Negati ve negati ve Not Available [facility] ([facility]) [address] [place], [address], 05/07/2025 15:08:06 05/06/20 25 05/07/2025 URINA LYSIS , COMPL ETE occult blood Negati ve negati ve Not Available [facility] ([facility]) [address] [place], [address], 05/07/2025 15:08:06 05/06/20 25 05/07/2025 URINA LYSIS , COMPL ETE bilirubin Negati ve negati ve Not Available [facility] ([facility]) [address] [place], [address], 05/07/2025 15:08:06 05/06/20 25 05/07/2025 URINA LYSIS , COMPL ETE urobilinogen ,semi-qn 0.2 mg/dL 0.2-1. 0 normal Not Available [facility] ([facility]) [address] [place], [address], 05/07/2025 15:08:06 05/06/20 25 05/07/2025 URINA LYSIS , COMPL ETE nitrite, urine Negati ve negati ve Not Available [facility] ([facility]) [address] [place], [address], 05/07/2025 15:08:06 05/06/20 25 05/07/2025 URINA LYSIS , COMPL ETE microscopic examination Commen t Micro scopi c follo ws if indic ated. Not Available [facility] ([facility]) [address] [facility], [place], [address], 05/07/2025 15:08:06 05/06/20 25 05/07/2025 URINA LYSIS , COMPL ETE microscopic examination See below: Micro katarzynai c was indic ated and was perfo rmed. Not Available [facility] ([facility]) [address] [facility], [place], [address], 05/07/2025 15:08:06 05/06/20 25 05/07/2025 URINA LYSIS , COMPL ETE WBC None seen /hpf 0 - 5 Not Available [facility] ([facility]) [address] [facility], [place], [address], 05/07/2025 15:08:06 05/06/20 25 05/07/2025 URINA LYSIS , COMPL ETE RBC None seen /hpf 0 - 2 Not Available [facility] ([facility]) [address] [facility], [place], [address], 05/07/2025 15:08:06 05/06/20 25 05/07/2025 URINA LYSIS , COMPL ETE epithelial cells (non renal) None seen /hpf 0 - 10 Not Available [facility] ([facility]) [address] [facility], [place], [address], 05/07/2025 15:08:06 05/06/20 25 05/07/2025 URINA LYSIS , COMPL ETE epithelial cells (renal) [employer] Not Available [facility] ([facility]) [address] [facility], [place], [address], 05/07/2025 15:08:06 05/06/20 25 05/07/2025 URINA LYSIS , COMPL ETE casts None seen /lpf none seen Not Available [facility] ([facility]) [address] [facility], [place], [address], 05/07/2025 15:08:06 05/06/20 25 05/07/2025 URINA LYSIS , COMPL ETE cast type [employer] MA[employer]GER Not Available [facility] ([facility]) [address] [facility], [place], [address], 05/07/2025 15:08:06 05/06/20 25 05/07/2025 URINA LYSIS , COMPL ETE crystals [employer] MA[employer]GER Not Available [facility] ([facility]) [address] [facility], [place], [address], 05/07/2025 15:08:06 05/06/20 25 05/07/2025 URINA LYSIS , COMPL ETE crystal type [employer] MANAGER Not Available [facility] ([facility]) [address] [facility], [place], [address], 05/07/2025 15:08:06 05/06/20 25 05/07/2025 URINA LYSIS , COMPL ETE mucus threads [employer] MA[employer]GER Not Available [facility] ([facility]) [address] [facility], [place], [address], 05/07/2025 15:08:06 05/06/20 25 05/07/2025 URINA LYSIS , COMPL ETE bacteria None seen none seen/f ew Not Available [facility] ([facility]) [address] [facility], [place], [address], 05/07/2025 15:08:06 05/06/20 25 05/07/2025 URINA LYSIS , COMPL ETE yeast [employer] MA[employer]GER Not Available [facility] ([facility]) [address] [facility], [place], [address], 05/07/2025 15:08:06 05/06/20 25 05/07/2025 URINA LYSIS , COMPL ETE trichomonas [employer] MA[employer]GER Not Available [facility] ([facility]) [address] [facility], [place], [address], 05/07/2025 15:08:06 05/06/20 25 05/07/2025 URINA LYSIS , COMPL ETE comment [employer]GER Not Available [facility] ([facility]) [address] [facility], [place], [address], 05/07/2025 15:08:06 05/06/20 25 05/07/2025 VITAM IN B12 AND FOLAT E vitamin B12 1548 pg/mL 232-12 45 above high normal Not Available [facility] ([facility]) [address] [facility], [place], [address], 05/07/2025 15:08:07 05/06/20 25 05/07/2025 VITAM IN B12 AND FOLAT E folate (folic acid), serum 10.6 NG/mL >3.0 normal A serum folat e easton ntrat ion of less than 3.1 ng/mL is consi dered to repre sent clini brianna defic iency . Not Available [facility] ([facility]) [address] [facility], [place], [address], 05/07/2025 15:08:07 05/06/20 25 05/07/2025 HEMOG LOBIN A1C hemoglobin A1C 5.2 % 4.8-5. 6 normal Predi abete s: 5.7 - 6.4 Diabe cesia: >6.4 Glyce vini contr ol for adult s with diabe cesia: <7.0 Not Available [facility] ([facility]) [address] [facility], [place], [address], 05/07/2025 15:08:07 Result Notes None recorded. Problems Name Problem SNOMED Code Status Onset Date Resolution Date Notes Provider Name and Address Organization Details Recorded Time Dizziness 685303481 Active [address] [place], [address], [employer] 08:54:19 Glomerular filtration rate below reference range 771236188 Active [address] NP [address] [place], [address], [employer] 13:50:04 Fatigue 96828718 Active [address], NUB[address] [place], [address], [employer] 14:15:12 Iron deficiency 80518061 Active [address] [place] [address], [address], [employer] 13:59:50 Candidiasis 17942843 Active [address], [address] [place], [address], [employer] 17:12:10 Problem Notes None recorded. Procedures Surgical History Date Name Laterality Status Provider Name and Address Organization Details Recorded Time 07/08/20 Most Recent Mammogram completed [facility]. 05/06/2025 13:06:12 Appendectomy completed [facility]. 05/06/2025 13:06:12 Caesarean Section completed [facility]. 05/06/2025 13:06:12 Other completed [facility]. 05/06/2025 13:06:12 Imaging Results None recorded. Procedure Notes None recorded. Medical Equipment None Reported. Allergies No known drug allergies Medications Name Sig Start Date Stop Date Status Note LastModified by Organization Details LastModified Time amoxicillin 500 mg capsule TAKE 1 CAPSULE BY MOUTH TWICE A DAY FOR 10 DAYS 05/01 completed Not Available Not Available Not Available ibuprofen 800 mg tablet TAKE ONE TABLET BY MOUTH EVERY 8 HOURS NEEDED FOR PAIN --TAKE WITH FOOD-- 05/06 completed Not Available Not Available Not Available senna 8.6 mg tablet TAKE ONE TABLET BY MOUTH TWICE DAILY NEEDED FOR CONSTIPAT ION 05/06 completed Not Available Not Available Not Available aspirin 81 mg tablet,kimberly yed release TAKE 1 TABLET BY MOUTH TWICE DAILY 05/06 completed Not Available Not Available Not Available acetaminoph en 500 mg tablet TAKE ONE TABLET BY MOUTH EVERY 6 HOURS NEEDED FOR FEVER OR PAIN 05/06 completed Not Available Not Available Not Available amoxicillin 500 mg tablet TAKE 1 TABLET BY MOUTH TWICE DAILY FOR 10 DAYS 05/06 completed Not Available Not Available Not Available meclizine 25 mg tablet TAKE ONE TABLET BY MOUTH FOUR TIMES A DAY active Not Available Not Available No t Available ferrous sulfate 325 mg (65 mg iron) tablet Take 1 tablet every day by oral route. 2024 active Not Available Not Available Not Avai lable nystatin 100,000 unit/gram topical cream APPLY TO THE AFFECTED AREA(S) BY TOPICAL ROUTE 2-3 TIMES PER DAY FOR 3-5 DAYS active Not Available Not Available No t Available ferrous sulfate 325 mg (65 mg iron) tablet,kimberly yed release TAKE 1 TABLET BY MOUTH EVERY DAY active Not Available Not Available No t Available ondansetron 4 mg disintegrat ing tablet TAKE ONE TABLET BY MOUTH EVERY 8 HOURS 05/06 completed Not Available Not Available Not Available elderberry fruit active Not Available Not Available Not Available Vitals Date Recorded Body weight Body mass index (BMI) Body height Oxygen saturation Oxygen saturation in Arterial blood by Pulse oximetry Heart rate Body temperature Systolic And Diastolic Provider Name and Address Organization Details Last Updated DateTime 5 [address].4 8 g 24.3 kg/m2 172.72 cm 98 % 98 % 85 /min 98 [degF] 101/68 mm[Hg] Isha Rick [employer]. 13:14:39 Social History Question Answer Notes LastModified by Organizat ion Details LastModified Time Tobacco Smoking Status Never Smoker Isha [email or web address], [employer]. 05/06/2025 13:15:47 Is Your Home Air Conditioned? Yes Information not available 05/06/2025 Are You A Caregiver? Yes [email or web address] Information not available 05/06/2025 What Type Of Diet Are You Following? REGULAR [email or web address] Information not available 05/06/2025 Have There Been Any Changes To Your Family Or Social Situation? No [email or web address] Information not available 05/06/2025 Do You Engage In Moderate/heavy Exercise (e.g. Brisk Walk, Jogging, Strength Training, Etc)? Yes [email or web address] Information not available 05/06/2025 Where Do You Live? [facility] [email or web address] Information not available 05/06/2025 What Was The Date Of Your Most Recent Tobacco Screening? 05/06/2025 [email or web address] Information not available 05/06/2025 Do You Have Any Pets? Yes [email or web address] Information not available 05/06/2025 What Is Your Relationship Status? [email or web address] Information not available 05/06/2025 Do You Use Your Seat Belt Or Car Seat Routinely? Yes Information not available 05/06/2025 Are You Sexually Active? Yes [email or web address] Information not available 05/06/2025 Do You Have Smoke And Carbon Monoxide Detectors In Your Home? Yes [email or web address] Information not available 05/06/2025 Are You Passively Exposed To Smoke? No [email or web address] Information not available 05/06/2025 Are There Any Smokers In Your House? No [email or web address] Information not available 05/06/2025 Have You Recently Traveled Abroad? No [email or web address] Information not available 05/06/2025 What Contraceptive Method Was Reported At Start Of This Visit? Fertility Awareness-based Methods [email or web address] Information not available 05/06/2025 Do You Have Any Dietary Restrictions? No [email or web address] Information not available 05/06/2025 Sex: Unknown Functional Status Question Answer Note LastModified by Organization D etails LastModified Time Are you able to care for yourself independently? Yes [email or web address] Information not available 05/06/2025 Mental Status Question Answer Note LastModified by Organization D etails LastModified Time Do you feel stressed (tense, restless, nervous, or anxious, or unable to sleep at night)? [id number] Information not available 05/06/2025 Family History Relationship Description Onset Age of this Age Resolved Age Notes LastModified by Organization Details LastModified Time Paternal Grandmother Hypertensive disorder [id number] Not available 04/09 13:06:11 Paternal Grandmother Kidney disease [email or web address] Not available 04/09 13:06:11 Mother Anxiety disorder [email or web address] Not available 04/09 13:06:11 Mother Depressive disorder [email or web address] Not available 04/09 13:06:11 Maternal Grandmother Anxiety disorder [id number] Not available 04/09 13:06:11 Maternal Grandmother Depressive disorder [email or web address] Not available 04/09 13:06:11 Maternal Grandmother Malignant neoplasm of ovary [id number] Not available 04/09 13:06:11 Maternal Grandmother Malignant neoplasm of uterus [id number] Not available 04/09 13:06:11 Medical History Condition Response Hospitalizations N ADD/ADHD N Emergency room visit since last appointm ent. Y Bladder or Kidney Problems Y Hypertension Y Gynecological History Statement/Question Response Menses Monthly N HPV Vaccine N Date of Last Pap Smear Current Control Method Fertility A wareness Method Most Recent Mammogram 07/08/2024 Age at First Child 21 Obstetrics History GPAL:G 3 P 3 0 0 3 Type Value Full Term 3 Living 3 Total 3 Immunizations Vaccine Type Date Status Note Provider Nam e and Address Organization Details Recorded Time Tdap 08/20/2021 completed Not Available [facility] 13:04:00 Tdap 01/03/2025 completed Not Available [facility] 13:04:00 Past Encounters Encounter ID Performer Location Encounter Start Date Encounter Closed Date Diagnosis/Indication Diagnosis SNOMED-CT Code Diagnosis ICD10 Code Diagnosis IMO Codes Diagnosis Note [id number] [facility] NP [address] [address] 05/06/2025 13:03:23 05/06/2025 14:42:52 Glomerular filtration rate below reference range 816074841 R94.4 [id number] Diabetes m ellitus screening 043922875 Z13.1 32145 Fatigue 89096486 R53.83 [id number] Health Concerns Section Related Observation LastModified by Organization Detai ls LastModified Time None Recorded Concern Status LastModified by Organization Details LastModified Time None Recorded Advance Directives Directive None Recorded Payers Insurance Date Sequence Insurance Name Policy Number Policy Valencia Covered Member ID Valencia Member ID Guarantor Name 05/08/2025 1 [facility] (MEDICAID REPLACEMENT - HMO) [place] De Leon [id number] Sadaf De Leon Notes Date Note Type Note Provider Name and Address Organization Details Recorded Time 05/06/2025 text/html ROS as noted in the HPI Patient presents today for hospital follow-up for dizziness. Patient states that she has been feeling intermittently dizzy since the of her daughter 2 months ago. Was seen at [facility] 5 days ago and diagnosed with vertigo for which she received meclizine. Patient states that since time of emergency department visit she has not needed to take meclizine and symptoms have resolved.Today patient expresses concerns about the lab results that she received from emergency department visit. Patient reports that some of her kidney labs are not normal. She has a family history of kidney disease, and is concerned about catching any changes early. Past medical history includes a urinary flap repair when she was aged 5 or 6 due to urinary reflux causing frequent UTI. Patient has not had issues with UTI since that time however while her OB noted a decreased eGFR, obtained an ultrasound of her kidneys and noted the right kidney was enlarged diagnosing her with hydronephrosis. During her patient presented to the emergency room with shea blood in her urine. Patient reports monitoring kidneys during her the OB. After delivery and additional ultrasound was obtained and she reports that her right kidney was even larger, but only by a little bit after delivery. At this point OB has stopped following and she is transitioning this concern to her primary care provider. Patient has never seen nephrology, but has seen urology, over a year ago. At that time her labs were okay, they were concerned that potentially the cause of her elevated lab values could be due to her exercise routine. Her last eGFR measured 5 days ago was 69. This was the lowest it has been since monitoring started during her . Denies blood in urine, pain, changes in amount or frequency of urination. [address] NP [address] [place], [address], [facility] 05/07/2025 10:36:42 OBGyn Episode No OBEpisode recorded.
--- OUTSIDE RECORDS SUMMARY | 2025-05-21 08:56 | XMS_ITS | Encounter Summary ---
Author Organization [employer] ([place], [place], [place], [place]) Address [address] [place] [address] Care Team Providers Care Fiber Technologist Name Role Phone Unavailable Primary Care Provider Unavailabl e Encounter Details Date Type Department Care Team (Late st Contact Info) Description 04/10/2021 Transcribed Document [facility] Radiology [address] [place] [address] Herbie Srivastava MD [address] [place] [address] Dept[place] [address] Social History Tobacco Use Types [...] Srivastava MD - 04/10/2021 9:09 AM EDT documented in this encounter Plan of Treatment Not on file documented as of this encounter Visit Diagnoses Not on filedocumented in this encounter
--- OUTSIDE RECORDS SUMMARY | 2025-05-21 08:56 | XMS_ITS | Encounter Summary ---
Author Organization [employer] ([place], [place], [place], [place]) Address [address] [place] [address] Care Team Providers Care Hotel Operation Manager Name Role Phone Unavailable Primary Care Provider Unavailabl e Encounter Details Date Type Department Care Team (Late st Contact Info) Description 04/07/2021 Transcribed Document [facility] [place] [facility] [place] [address] ProviderJuan Carlos MD [facility] [place], [place] [id number] Social History Tobacco Use Types Packs/Day Years [...] Communication Barrier : None Primary Language : Vincentian General Information Comment : seen by provider [...]
--- OUTSIDE RECORDS SUMMARY | 2025-05-21 08:56 | XMS_ITS | Encounter Summary ---
Author Organization [employer] ([place], [place], [place], [place]) Address [address] [place] [address] Care Team Providers Care Filtering Machine Tender Helper Name Role Phone Unavailable Primary Care Provider Unavailabl e Encounter Details Date Type Department Care Team (Late st Contact Info) Description 04/10/2021 Transcribed Document [facility] [place] [facility] [place] [address] ProviderJuan Carlos MD [facility] [place] [id number] Social History Tobacco Use Types Packs/Day Years [...] Communication Barrier : None Primary Language : Portuguese Any Spiritual/Cultural Needs or Requests : No [...]
--- OUTSIDE RECORDS SUMMARY | 2025-05-21 08:56 | XMS_ITS | Encounter Summary ---
Author Organization [employer] ([place], [place], [place], [place]) Address [address] [place] [address] Care Team Providers Care Senior Technical Business Analyst Name Role Phone Unavailable Primary Care Provider Unavailabl e Encounter Details Date Type Department Care Team (Late st Contact Info) Description 04/08/2021 Transcribed Document [facility] [place] [facility] [place] [address] ProviderJuan Carlos MD [address] [place] [address] Social History Tobacco Use Types [...] Carlos ProviderMD - 04/08/2021 12:05 AM CDT [place] [id number] LIBERTAD WEBBNE :2000 Visit Time:04/07/2021 Your Visit [...] take Tylenol as needed. Follow-up with your AUTO RADIATOR SPECIALIST. Allergies No Known Medication Allergies Immunizations [...] areas. Get rest and stay hydrated. Take ldvz-rte-xeolrev medicines, such as acetaminophen, to help you [...] provider. Document Revised: 07/10/2020 Document Reviewed: 07/10/2020 [employer] Patient Education ?? 2020 [employer] COVID-19: How to Protect Yourself and Others Know how it spreads ??? There is currently no vaccine to prevent coronavirus disease 2019 (COVID-19). ??? The best way to prevent illness is to avoid being exposed to this virus. ??? The virus is thought to spread mainly from nhcysy-md-izzstw. ? Between people who are in close [...] are not readily available, use a hand manager enterprise that contains at least 60% alcohol. Cover [...] are at higher risk of getting very sick.www.cdc.gov/coronavirus/2019-ncov/pbjk-zdygn-slacoiqijtu/gujxzt-tl-ktjapb -risk.html Cover your mouth and nose with [...] available, clean your hands with a hand manager enterprise that contains at least 60% alcohol. Clean and disinfect ??? Clean AND disinfect frequently touched surfaces daily. This includes tables, doorknobs, light switches, countertops, handles, desks, phones, keyboards, toilets, faucets, and sinks. www.cdc.gov/coronavirus/2019-ncov/niorleb-aczotfo-gxwe/kcblmgcxcvhe-cgtj-fqgn. html ??? If surfaces are dirty, clean [...] Reviewed: 02/14/2020 Elsevier Patient Education ?? 2020 [employer]. COVID-19 Frequently Asked Questions COVID-19 (coronavirus disease) [...] the coronavirus come from? In July 2019, Watson told the World Health Organization (WHO) about several cases of lung disease (human respiratory illness). These cases were linked to an open seafood and livestock market in the [facility] of [facility]. The link to the seafood and livestock [...] and virus naming ??? World Health Organization: www.who.int/emergencies/diseases/jovjp-xinuxtwlpds-2998/technical-guidance Who is at risk for complications from [...] are not available, use alcohol-based hand manager enterprise. ??? Avoid touching your face, mouth, nose, [...] (CDC): www.cdc.gov/coronavirus/2019-ncov/travelers ??? World Health Organization (WHO): www.who.int/emergencies/diseases/pntqb-lkvwxxmgrnj-7908/travel-advice What should I do if I am sick? General instructions to stop the spread of infection ??? Wash your hands often with soap and water for at least 20 seconds. If soap and water are not available, use alcohol-based hand manager enterprise. ??? Cough or sneeze into a tissue, [...] in hot, soapy water or use a jewelry finisher. Air-dry your dishes. ??? Wash laundry in [...] Organization (WHO) ??? Information and news updates: www.who.int/emergencies/diseases/xazwj-mkzwhtuzkpo-2226 ??? Coronavirus health topic: www.who.int/health-topics/coronavirus ??? Questions and answers on COVID-19: www.who.int/news-room/q-a-detail/c-b-nprhppqltlamt ??? Global tracker: [employer] [place] Academy [employer] Pediatrics (AAP) ??? Information for families: www.healthychildren.org/Croatian/health-issues/conditions/chest-lungs/Pages/201 0-Kinue-Wkkkxvihzap.aspx The coronavirus situation is changing rapidly. Check [...] provider. Document Revised: 07/22/2020 Document Reviewed: 07/22/2020 [employer] Patient Education ?? 2020 [employer] Emergency Awareness and Preventative Care STROKE [...] Assistance with quitting is available by contacting 0-444-IKBWNOW. This is a free resource providing counseling, support, and referral. Or you may contact your personal physician. d[place] Suicide Prevention Lifeline: The National Suicide Prevention [...] was given the opportunity to ask questions. Patient/Order Entry Administrator Name: Patient/Order Entry Administrator Signature: Relationship to Patient: Clinician/Hospital Order Entry Administrator Signature: Please Provide a Telephone Number Where You Can Be Reached: Is it Permissible To Leave a Message? Date: Electronically signed by [facility] Conversion Wellness Nurse Yu at 11/21/2022 11:32 PM CDT documented in this encounter Plan of Treatment Not on file documented as of this encounter Visit Diagnoses Not on filedocumented in this encounter
--- OUTSIDE RECORDS SUMMARY | 2025-05-21 08:57 | XMS_ITS | Clinical Summary ---
Author Organization [employer] [facility] Address [address] [place] [phone] Phone Care Team Providers Care Teacher Specialist Name Role Phone Unavailable Unavailable Conditions or Problems No information available. Medications No information available. Medications Administered No information available. Allergies, Adverse Reactions, Alerts No information available. Results No information available. Plan of Care No information available. Procedures No information available. Vital Signs No information available. Immunizations No information available. Advance Directives No information available.
--- OUTSIDE RECORDS SUMMARY | 2025-05-21 08:57 | XMS_ITS | Continuity of Care Document ---
Author Organization [employer] [facility] [address], [facility] Address [address] [place] [address] Assessment No assessment recorded. Plan of Treatment Reminders Order Date Submit Date Provider Last Modified By Organization Details Last Modified Time Details Appointments None recorded. Lab CMP, serum or plasma 2024 025 [email or web address] [facility] [address] [place], [address], 5 15:08:06 urinalysis , complete 2024 025 JOSE [facility]), [address] [place], [address], 5 15:08:06 HbA1c (hemoglobi n A1c), blood 2024 025 JOSE [facility]), [address] [place], [address], 5 15:08:08 cobalamin and folate panel, serum 2024 025 JOSE [facility]), [address] [place], [address], 5 15:08:07 iron + TIBC + ferritin, serum 2024 025 JOSE [facility]), [address] [place], [address], 5 15:08:03 CBC w/ auto diff 2024 025 JOSE [facility]), [address] [facility], [place], [address], 15:08:05 TSH + free T4, serum 2024 025 JOSE [facility]), [address] [facility], [place], [address], 15:08:04 Referral None recorded. Procedures None recorded. Surgeries None recorded. Imaging None recorded. Medication Orders None recorded. Patient TargetsNo targets recorded. Patient InstructionsNo instructions recorded. Reason for Referral None Reported. Results Created Date Observation Date Name Description Value Unit Range Abnormal Flag Note LastModifiedBy Organization Detail LastModifiedTime 05/06/2005/07/2025 FE+TI BC+FE R iron bind.cap.(TI BC) 405 ug/dL 250-45 0 normal Not Available [facility] ([facility]) [address] [place], [address], 05/07/2025 15:08:03 05/06/20 25 05/07/2025 FE+TI BC+FE R UIBC 377 ug/dL 131-42 5 normal Not Available [facility] ([facility]) [address] [place], [address], 05/07/2025 15:08:03 05/06/2005/07/2025 FE+TI BC+FE R iron 28 ug/dL 27-159 normal Not Available [facility] ([facility]) [address] [place], [address], 05/07/2025 15:08:03 05/06/20 25 05/07/2025 FE+TI BC+FE R iron saturation 7 % 15-55 alert low Not Available [facility] ([facility]) [address] [place], [address], 05/07/2025 15:08:03 05/06/20 25 05/07/2025 FE+TI BC+FE R ferritin 10 NG/mL 15-150 below low normal Not Available [facility] ([facility]) [address] [place], [address], 05/07/2025 15:08:03 05/06/2005/07/2025 TSH+F REE T4 TSH 1.300 uIU/m L 0.450- 4.500 normal Not Available [facility] ([facility]) [address] [place], [address], 05/07/2025 15:08:04 05/06/2005/07/2025 TSH+F REE T4 T4,free(dire ct) 0.99 NG/dL 0.82-1 .77 normal Not Available [facility] ([facility]) [address] [place], [address], 05/07/2025 15:08:04 05/06/2005/07/2025 CBC WITH DIFFE RENTI AL/PL ATELE T WBC 8.0 x10e3 /uL 3.4-10 .8 normal Not Available [facility] ([facility]) [address] [place], [address], 05/07/2025 15:08:05 05/06/2005/07/2025 CBC WITH DIFFE RENTI AL/PL ATELE T RBC 4.87 x10e6 /uL 3.77-5 .28 normal Not Available [facility] ([facility]) [address] [place], [address], 05/07/2025 15:08:05 05/06/2005/07/2025 CBC WITH DIFFE RENTI AL/PL ATELE T hemoglobin 12.4 g/dL 11.1-1 5.9 normal Not Available [facility] ([facility]) [address] [place], [address], 05/07/2025 15:08:05 05/06/20 25 05/07/2025 CBC WITH DIFFE RENTI AL/PL ATELE T hematocrit 40.2 % 34.0-4 6.6 normal Not Available [facility] ([facility]) [address] [place], [address], 05/07/2025 15:08:05 05/06/20 25 05/07/2025 CBC WITH DIFFE RENTI AL/PL ATELE T MCV 83 fL 79-97 normal Not Available [facility] ([facility]) [address] [place], [address], 05/07/2025 15:08:05 05/06/20 25 05/07/2025 CBC WITH DIFFE RENTI AL/PL ATELE T MCH 25.5 pg 26.6-3 3.0 below low normal Not Available [facility] ([facility]) [address] [place], [address], 05/07/2025 15:08:05 05/06/20 25 05/07/2025 CBC WITH DIFFE RENTI AL/PL ATELE T MCHC 30.8 g/dL 31.5-3 5.7 below low normal Not Available [facility] ([facility]) [address] [place], [address], 05/07/2025 15:08:05 05/06/20 25 05/07/2025 CBC WITH DIFFE RENTI AL/PL ATELE T RDW 13.7 % 11.7-1 5.4 Not Available [facility] ([facility]) [address] [place], [address], 05/07/2025 15:08:05 05/06/20 25 05/07/2025 CBC WITH DIFFE RENTI AL/PL ATELE T platelets 283 x10e3 /uL 150-45 0 normal Not Available [facility] ([facility]) [address] [place], [address], 05/07/2025 15:08:05 05/06/20 25 05/07/2025 CBC WITH DIFFE RENTI AL/PL ATELE T neutrophils 59 % not estab. normal Not Available [facility] ([facility]) [address] [place], [address], 05/07/2025 15:08:05 05/06/20 25 05/07/2025 CBC WITH DIFFE RENTI AL/PL ATELE T lymphs 30 % not estab. normal Not Available [facility] ([facility]) [address] [facility], [place], [address], 05/07/2025 15:08:05 05/06/20 25 05/07/2025 CBC WITH DIFFE RENTI AL/PL ATELE T monocytes 9 % not estab. normal Not Available [facility] ([facility]) [address] [facility], [place], [address], 05/07/2025 15:08:05 05/06/20 25 05/07/2025 CBC WITH DIFFE RENTI AL/PL ATELE T eos 1 % not estab. normal Not Available [facility] ([facility]) [address] [facility], [place], [address], 05/07/2025 15:08:05 05/06/20 25 05/07/2025 CBC WITH DIFFE RENTI AL/PL ATELE T basos 1 % not estab. normal Not Available [facility] ([facility]) [address] [facility], [place], [address], 05/07/2025 15:08:05 05/06/20 25 05/07/2025 CBC WITH DIFFE RENTI AL/PL ATELE T immature cells PROGRAM PROFESSIONAL Not Available [facility] ([facility]) [address] [place], [address], 05/07/2025 15:08:05 05/06/20 25 05/07/2025 CBC WITH DIFFE RENTI AL/PL ATELE T neutrophils (absolute) 4.7 x10e3 /uL 1.4-7. 0 normal Not Available [facility] ([facility]) [address] [facility], [place], [address], 05/07/2025 15:08:05 05/06/20 25 05/07/2025 CBC WITH DIFFE RENTI AL/PL ATELE T lymphs (absolute) 2.4 x10e3 /uL 0.7-3. 1 normal Not Available [facility] ([facility]) [address] [facility], [place], [address], 05/07/2025 15:08:05 05/06/20 25 05/07/2025 CBC WITH DIFFE RENTI AL/PL ATELE T monocytes(ab solute) 0.7 x10e3 /uL 0.1-0. 9 normal Not Available [facility] ([facility]) [address] [facility], [place], [address], 05/07/2025 15:08:05 05/06/20 25 05/07/2025 CBC WITH DIFFE RENTI AL/PL ATELE T eos (absolute) 0.1 x10e3 /uL 0.0-0. 4 normal Not Available [facility] ([facility]) [address] [facility], [place], [address], 05/07/2025 15:08:05 05/06/20 25 05/07/2025 CBC WITH DIFFE RENTI AL/PL ATELE T baso (absolute) 0.1 x10e3 /uL 0.0-0. 2 normal Not Available [facility] ([facility]) [address] [place], [address], 05/07/2025 15:08:05 05/06/20 25 05/07/2025 CBC WITH DIFFE RENTI AL/PL ATELE T immature granulocytes 0 % not estab. Not Available [facility] ([facility]) [address] [facility], [place], [address], 05/07/2025 15:08:05 05/06/20 25 05/07/2025 CBC WITH DIFFE RENTI AL/PL ATELE T immature grans (abs) 0.0 x10e3 /uL 0.0-0. 1 Not Available [facility] ([facility]) [address] [facility], [place], [address], 05/07/2025 15:08:05 05/06/20 25 05/07/2025 CBC WITH DIFFE RENTI AL/PL ATELE T NRBC PROGRAM PROFESSIONAL Not Available [facility] ([facility]) [address] [facility], [place], [address], 05/07/2025 15:08:05 05/06/20 25 05/07/2025 CBC WITH DIFFE RENTI AL/PL ATELE T hematology comments: PROGRAM PROFESSIONAL Not Available [facility] ([facility]) [address] [facility], [place], [address], 05/07/2025 15:08:05 05/06/20 25 05/07/2025 COMP. METAB OLIC PANEL (14) glucose 79 mg/dL 70-99 normal Not Available [facility] ([facility]) [address] [facility], [place], [address], 05/07/2025 15:08:06 05/06/20 25 05/07/2025 COMP. METAB OLIC PANEL (14) BUN 16 mg/dL 6-20 normal Not Available [facility] ([facility]) [address] [facility], [place], [address], 05/07/2025 15:08:06 05/06/20 25 05/07/2025 COMP. METAB OLIC PANEL (14) creatinine 1.01 mg/dL 0.57-1 .00 above high normal Not Available [facility] ([facility]) [address] [facility] [place], [address], 05/07/2025 15:08:06 05/06/20 25 05/07/2025 COMP. METAB OLIC PANEL (14) eGFR 80 mL/mi n/1.7 3 >59 normal Not Available [facility] ([facility]) [address] [place], [address], 05/07/2025 15:08:06 05/06/20 25 05/07/2025 COMP. METAB OLIC PANEL (14) BUN/creatini ne ratio 16 9-23 normal Not Available [facility] ([facility]) [address] [place], [address], 05/07/2025 15:08:06 05/06/20 25 05/07/2025 COMP. METAB OLIC PANEL (14) sodium 141 mmol/ L 134-14 4 normal Not Available [facility] ([facility]) [address] [place], [address], 05/07/2025 15:08:06 05/06/20 25 05/07/2025 COMP. METAB OLIC PANEL (14) potassium 4.0 mmol/ L 3.5-5. 2 normal Not Available [facility] ([facility]) [address] [place], [address], 05/07/2025 15:08:06 05/06/20 25 05/07/2025 COMP. METAB OLIC PANEL (14) chloride 103 mmol/ L 96-106 normal Not Available [facility] ([facility]) [address] [place], [address], 05/07/2025 15:08:06 05/06/20 25 05/07/2025 COMP. METAB OLIC PANEL (14) carbon dioxide, total 23 mmol/ L 20-29 normal Not Available [facility] ([facility]) [address] [place], [address], 05/07/2025 15:08:06 05/06/20 25 05/07/2025 COMP. METAB OLIC PANEL (14) calcium 9.7 mg/dL 8.7-10 .2 normal Not Available [facility] ([facility]) [address] [place], [address], 05/07/2025 15:08:06 05/06/20 25 05/07/2025 COMP. METAB OLIC PANEL (14) protein, total 7.1 g/dL 6.0-8. 5 normal Not Available [facility] ([facility]) [address], [place], [address], 05/07/2025 15:08:06 05/06/20 25 05/07/2025 COMP. METAB OLIC PANEL (14) albumin 4.8 g/dL 4.0-5. 0 normal Not Available [facility] ([facility]) [address], [place], [address], 05/07/2025 15:08:06 05/06/20 25 05/07/2025 COMP. METAB OLIC PANEL (14) globulin, total 2.3 g/dL 1.5-4. 5 Not Available [facility] ([facility]) [address], [place], [address], 05/07/2025 15:08:06 05/06/20 25 05/07/2025 COMP. METAB OLIC PANEL (14) bilirubin, total <0.2 mg/dL 0.0-1. 2 Not Available [facility] ([facility]) [address], [place], [address], 05/07/2025 15:08:06 05/06/20 25 05/07/2025 COMP. METAB OLIC PANEL (14) alkaline phosphatase 92 IU/L 41-116 normal Not Available [facility] ([facility]) [address], [place], [address], 05/07/2025 15:08:06 05/06/20 25 05/07/2025 COMP. METAB OLIC PANEL (14) AST (SGOT) 23 IU/L 0-40 normal Not Available [facility] ([facility]) [address], [place], [address], 05/07/2025 15:08:06 05/06/20 25 05/07/2025 COMP. METAB OLIC PANEL (14) ALT (SGPT) 25 IU/L 0-32 normal Not Available [facility] ([facility]) [address] [facility] [place], [address], 05/07/2025 15:08:06 05/06/20 25 05/07/2025 URINA LYSIS , COMPL ETE specific gravity 1.019 1.005- 1.030 normal Not Available [facility] ([facility]) [address] [facility], [place], [address], 05/07/2025 15:08:06 05/06/20 25 05/07/2025 URINA LYSIS , COMPL ETE pH 7.0 5.0-7. 5 normal Not Available [facility] ([facility]) [address] [facility], [place], [address], 05/07/2025 15:08:06 05/06/20 25 05/07/2025 URINA LYSIS , COMPL ETE urine-color Yellow yellow Not Available [facility] ([facility]) [address] [facility] [place], [address], 05/07/2025 15:08:06 05/06/20 25 05/07/2025 URINA LYSIS , COMPL ETE appearance Clear clear Not Available [facility] ([facility]) [address] [place], [address], 05/07/2025 15:08:06 05/06/20 25 05/07/2025 URINA LYSIS , COMPL ETE WBC esterase Negati ve negati ve Not Available [facility] ([facility]) [address] [place], [address], 05/07/2025 15:08:06 05/06/20 25 05/07/2025 URINA LYSIS , COMPL ETE protein Negati ve negati ve/tra ce Not Available [facility] ([facility]) [address] [place], [address], 05/07/2025 15:08:06 05/06/20 25 05/07/2025 URINA LYSIS , COMPL ETE glucose Negati ve negati ve Not Available [facility] ([facility]) [address] [facility], [place], [address], 05/07/2025 15:08:06 05/06/20 25 05/07/2025 URINA LYSIS , COMPL ETE ketones Negati ve negati ve Not Available [facility] ([facility]) [address] [facility], [place], [address], 05/07/2025 15:08:06 05/06/20 25 05/07/2025 URINA LYSIS , COMPL ETE occult blood Negati ve negati ve Not Available [facility] ([facility]) [address] [place], [address], 05/07/2025 15:08:06 05/06/20 25 05/07/2025 URINA LYSIS , COMPL ETE bilirubin Negati ve negati ve Not Available [facility] ([facility]) [address] [facility], [place], [address], 05/07/2025 15:08:06 05/06/20 25 05/07/2025 URINA LYSIS , COMPL ETE urobilinogen ,semi-qn 0.2 mg/dL 0.2-1. 0 normal Not Available [facility] ([facility]) [address] [place], [address], 05/07/2025 15:08:06 05/06/20 25 05/07/2025 URINA LYSIS , COMPL ETE nitrite, urine Negati ve negati ve Not Available [facility] ([facility]) [address] [place], [address], 05/07/2025 15:08:06 05/06/20 25 05/07/2025 URINA LYSIS , COMPL ETE microscopic examination Commen t Micro scopi c follo ws if indic ated. Not Available [facility] ([facility]) [address] [facility], [place], [address], 05/07/2025 15:08:06 05/06/20 25 05/07/2025 URINA LYSIS , COMPL ETE microscopic examination See below: Micro scopi c was indic ated and was perfo rmed. Not Available [facility] ([facility]) [address] [facility], [place], [address], 05/07/2025 15:08:06 05/06/20 25 05/07/2025 URINA LYSIS , COMPL ETE WBC None seen /hpf 0 - 5 Not Available [facility] ([facility]) [address] [facility], [place], [address], 05/07/2025 15:08:06 05/06/20 25 05/07/2025 URINA LYSIS , COMPL ETE RBC None seen /hpf 0 - 2 Not Available [facility] ([facility]) [address] [facility], [place], [address], 05/07/2025 15:08:06 05/06/20 25 05/07/2025 URINA LYSIS , COMPL ETE epithelial cells (non renal) None seen /hpf 0 - 10 Not Available [facility] ([facility]) [address] [facility], [place], [address], 05/07/2025 15:08:06 05/06/20 25 05/07/2025 URINA LYSIS , COMPL ETE epithelial cells (renal) PROGRAM PROFESSIONAL Not Available [facility] ([facility]) [address] [facility], [place], [address], 05/07/2025 15:08:06 05/06/20 25 05/07/2025 URINA LYSIS , COMPL ETE casts None seen /lpf none seen Not Available [facility] ([facility]) [address] [facility], [place], [address], 05/07/2025 15:08:06 05/06/20 25 05/07/2025 URINA LYSIS , COMPL ETE cast type PROGRAM PROFESSIONAL Not Available [facility] ([facility]) [address] [facility], [place], [address], 05/07/2025 15:08:06 05/06/20 25 05/07/2025 URINA LYSIS , COMPL ETE crystals PROGRAM PROFESSIONAL Not Available [facility] ([facility]) [address] [facility], [place], [address], 05/07/2025 15:08:06 05/06/20 25 05/07/2025 URINA LYSIS , COMPL ETE crystal type PROGRAM PROFESSIONAL Not Available [facility] ([facility]) [address] [facility], [place], [address], 05/07/2025 15:08:06 05/06/20 25 05/07/2025 URINA LYSIS , COMPL ETE mucus threads PROGRAM PROFESSIONAL Not Available [facility] ([facility]) [address] [facility], [place], [address], 05/07/2025 15:08:06 05/06/20 25 05/07/2025 URINA LYSIS , COMPL ETE bacteria None seen none seen/f ew Not Available [facility] ([facility]) [address] [facility], [place], [address], 05/07/2025 15:08:06 05/06/20 25 05/07/2025 URINA LYSIS , COMPL ETE yeast PROGRAM PROFESSIONAL Not Available [facility] ([facility]) [address] [facility], [place], [address], 05/07/2025 15:08:06 05/06/20 25 05/07/2025 URINA LYSIS , COMPL ETE trichomonas PROGRAM PROFESSIONAL Not Available [facility] ([facility]) [address] [facility], [place], [address], 05/07/2025 15:08:06 05/06/20 25 05/07/2025 URINA LYSIS , COMPL ETE comment PROGRAM PROFESSIONAL Not Available [facility] ([facility]) [address] [facility], [place], [address], 05/07/2025 15:08:06 05/06/20 25 05/07/2025 VITAM IN B12 AND FOLAT E vitamin B12 1548 pg/mL 232-12 45 above high normal Not Available [facility] ([facility]) [address] [facility], [place], [address], 05/07/2025 15:08:07 05/06/20 25 05/07/2025 VITAM IN B12 AND FOLAT E folate (folic acid), serum 10.6 NG/mL >3.0 normal A serum folat e easton ntrat ion of less than 3.1 ng/mL is consi dered to repre sent clini brianna defic iency . Not Available [facility] ([facility]) [address] [facility], [place], [address], 05/07/2025 15:08:07 05/06/20 25 05/07/2025 HEMOG LOBIN A1C hemoglobin A1C 5.2 % 4.8-5. 6 normal Predi abete s: 5.7 - 6.4 Diabe cesia: >6.4 Glyce vini contr ol for adult s with diabe cesia: <7.0 Not Available [facility] ([facility]) [address] [facility], [place], [address], 05/07/2025 15:08:07 Result Notes None recorded. Problems Name Problem SNOMED Code Status Onset Date Resolution Date Notes Provider Name and Address Organization Details Recorded Time Dizziness 075582976 Active [address] [place], [address], [employer] 08:54:19 Glomerular filtration rate below reference range 955441662 Active [address] [place], [address], [employer] 13:50:04 Fatigue 10748411 Active [address], NUBIA [address] [place], [address], [employer] 14:15:12 Iron deficiency 49780800 Active [address] NUBIA [address] [place] [address], [address], [employer] 13:59:50 Candidiasis 99947225 Active [address] NUBIA [address] [place] [address], [address], [employer] 17:12:10 Problem Notes None recorded. Procedures Surgical History Date Name Laterality Status Provider Name and Address Organization Details Recorded Time 07/08/20 Most Recent Mammogram completed [employer]. 05/06/2025 13:06:12 Appendectomy completed [employer]. 05/06/2025 13:06:12 Caesarean Section completed [employer]. 05/06/2025 13:06:12 Other completed [employer]. 05/06/2025 13:06:12 Imaging Results None recorded. Procedure [...] Address Organization Details Last Updated DateTime 5 17285.4 8 g 24.3 kg/m2 172.72 cm 98 % 98 % 85 /min 98 [degF] 101/68 mm[Hg] Isha Rick [employer]. 13:14:39 Social History Question Answer Notes LastModified by Organizat ion Details LastModified Time Tobacco Smoking Status Never Smoker Isha loaiza [email or web address]. 05/06/2025 13:15:47 Is Your Home Air Conditioned? Yes [email or web address] Information not available 05/06/2025 Are You A Caregiver? Yes [email or web address] Information not available 05/06/2025 What Type Of Diet Are You Following? REGULAR [email or web address] Information not available 05/06/2025 Have There Been Any Changes To Your Family Or Social Situation? No [email or web address] Information not available 05/06/2025 Do You Engage In Moderate/heavy Exercise (e.g. Brisk Walk, Jogging, Strength Training, Etc)? Yes [email or web address] Information not available 05/06/2025 Where Do You Live? [facility] [email or web address] Information not available 05/06/2025 What Was The Date Of Your Most Recent Tobacco Screening? 05/06/2025 [email or web address] Information not available 05/06/2025 Do You Have Any Pets? Yes [email or web address] Information not available 05/06/2025 What Is Your Relationship Status? [email or web address] Information not available 05/06/2025 Do You Use Your Seat Belt Or Car Seat Routinely? Yes [email or web address] Information not available 05/06/2025 Are You Sexually Active? Yes [email or web address] Information not available 05/06/2025 Do You Have Smoke And Carbon Monoxide Detectors In Your Home? Yes [email or web address] Information not available 05/06/2025 Are You Passively Exposed To Smoke? No [email or web address] Information not available 05/06/2025 Are There Any Smokers In Your House? No [email or web address] Information not available 05/06/2025 Have You Recently Traveled Abroad? No [email or web address] Information not available 05/06/2025 What Contraceptive Method Was Reported At Start Of This Visit? Fertility Awareness-based Methods [email or web address] Information not available 05/06/2025 Do You Have Any Dietary Restrictions? No [email or web address] Information not available 05/06/2025 Sex: Unknown Functional Status Question Answer Note LastModified by Organization D etails LastModified Time Are you able to care for yourself independently? Yes [email or web address] Information not available 05/06/2025 Mental Status Question Answer Note LastModified by Organization D etails LastModified Time Do you feel stressed (tense, restless, nervous, or anxious, or unable to sleep at night)? [id number] [email or web address] Information not available 05/06/2025 Family History Relationship Description Onset Age of this Age Resolved Age Notes LastModified by Organization Details LastModified Time Paternal Grandmother Hypertensive disorder [email or web address] Not available 04/09 13:06:11 Paternal Grandmother Kidney disease Not available 04/09 13:06:11 Mother Anxiety disorder [email or web address] Not available 04/09 13:06:11 Mother Depressive disorder [email or web address] Not available 04/09 13:06:11 Maternal Grandmother Anxiety disorder [email or web address] Not available 04/09 13:06:11 Maternal Grandmother Depressive disorder [email or web address] Not available 04/09 13:06:11 Maternal Grandmother Malignant neoplasm of ovary [email or web address] Not available 04/09 13:06:11 Maternal Grandmother Malignant neoplasm of uterus [email or web address] Not available 04/09 13:06:11 Medical History Condition [...] Recorded Time Tdap 08/20/2021 completed Not Available [facility] 05/06/2025 13:04:00 Tdap 01/03/2025 completed Not Available [facility] 05/06/2025 13:04:00 Past Encounters Encounter ID Performer Location Encounter Start Date Encounter Closed Date Diagnosis/Indication Diagnosis SNOMED-CT Code Diagnosis ICD10 Code Diagnosis IMO Codes Diagnosis Note [id number] [address] NP [address] [address] 05/06/2025 13:03:23 05/06/2025 14:42:52 Glomerular filtration rate below reference range 678114053 R94.4 30950530 Diabetes m ellitus screening 434349450 Z13.1 97573 Fatigue 36707495 R53.83 74222335 Health Concerns Section Related Observation LastModified by Organization Detai ls LastModified Time None Recorded Concern Status LastModified by Organization Details LastModified Time None Recorded Payers Encounter Date Sequence Insurance Name Policy Number Policy Valencia Covered Member ID Valencia Member ID Guarantor Name 05/06/2025 1 [facility]MED[place] REPLACEMENT - [place]MO[id number] Sadaf De Leon [id number] Sadaf De Leon Notes Date Note Type Note Provider Name and Address Organization Details Recorded Time 05/06/2025 text/html ROS as noted in the HPI Patient presents today for hospital follow-up for dizziness. Patient states that she has been feeling intermittently dizzy since the of her daughter 2 months ago. Was seen at [facility] 5 days ago and diagnosed with vertigo [...] frequency of urination. [address] [place], [address], [facility] [employer] 05/07/2025 10:36:42 OBGyn Episode No OBEpisode recorded.
== END 2025-05-21 23:59 | disposition home or self-care (01) ==
LOC: RAD 08:35
PROVIDERS: PCP Surgery; Visit Provider Surgery
DX: K82.4 Cholesterolosis of gallbladder (principal)
CPT/HCPCS: 76705